=== PATIENT | male | born 1945 | race Caucasian/White ===

== ENCOUNTER 2023-11-08 10:24 | Outpatient (OUT) | payer MEDICARE, SELFPAY ==
[2023-11-08 10:51] LABS: Basophils Absolute Auto 0.1 10^3/uL (0.0-0.1); Basophils Percent Auto 0.7 % (0.2-2.0); Eosinophils Absolute Auto 0.5 10^3/uL (0.0-0.7); Eosinophils Percent Auto 6.1 % (0.9-7.0); Hemoglobin 15.1 g/dL (14.0-18.0); Immature Granulocytes Abs Auto 0.03 10^3/uL (0.00-0.03); Immature Granulocytes Pct Auto 0.4 % (0.0-0.5); Lymphocytes Percent Auto 27.3 % (20.5-60.0); Mean Corpuscular HGB Conc 32.1 g/dL (29.9-35.2); Mean Corpuscular Hemoglobin 29.5 pg (25.9-34.0); Mean Corpuscular Volume 91.8 fL (80.0-94.0); Mean Platelet Volume 9.7 fL (9.5-13.5); Monocytes Absolute Auto 0.8 10^3/uL (0.3-0.8); Monocytes Percent Auto 10.4 % (1.7-12.0); Neutrophils Absolute Auto 4.1 10^3/uL (1.4-6.5); Neutrophils Percent Auto 55.1 % (43.0-75.0); Platelet Count 222 10^3/uL (150-450); Red Blood Count 5.12 10^6/uL (4.70-6.10); Red Cell Distribution Width 12.9 % (11.0-15.0); White Blood Count 7.4 10^3/uL (4.0-11.0)
[2023-11-08 11:13] LABS: Estimated Average Glucose 126 mg/dL
[2023-11-08 12:11] LABS: Prostate Specific Antigen Scrn 3.09 ng/mL (<=4.00)
[2023-11-08 12:26] LABS: Alanine Aminotransferase 19 U/L (16-63); Albumin Globulin Ratio 0.9; Albumin Level 3.3 g/dL (3.4-5.0); Alkaline Phosphatase 87 U/L (46-116); Anion Gap 13.1; Aspartate Amino Transferase 15 U/L (15-37); BUN Creatinine Ratio 11.4; Bilirubin Total 0.7 mg/dL (0.2-1.0); Calcium 8.7 mg/dL (8.5-10.1); Carbon Dioxide 27.1 mmol/L (21.0-32.0); Chloride 105 mmol/L (98-107); Cholesterol 176 mg/dL (<=200); Estimated GFR (African America 46 (>=60); Estimated GFR (Non-African Ame 38 (>=60); Free T3 1.99 pg/mL (2.18-3.98); Globulin 3.6 g/dL; Glucose 106 mg/dL (74-106); HDL Cholesterol 44 mg/dL (40-60); LDL Cholesterol Calculated 111.6 mg/dL; Potassium 4.2 mmol/L (3.5-5.1); Sodium 141 mmol/L (136-145); Thyroid Stimulating Hormone 3.392 uIU/mL (0.358-3.740); Total Protein 6.9 g/dL (6.4-8.2); Triglycerides 102 mg/dL (<=150); Uric Acid 7.5 mg/dL (3.5-7.2); VLDL CHOLESTEROL 20.4 mg/dL
== END 2023-11-08 10:25 | disposition home or self-care (01) ==
PROVIDERS: PCP Family Medicine; Visit Provider Family Medicine
DX: I95.1 Orthostatic hypotension (principal); R00.2 Palpitations; D63.1 Anemia in chronic kidney disease; I12.9 Hypertensive chronic kidney disease with stage 1 through stage 4 chronic kidney disease, or unspecified chronic kidney disease; E11.9 Type 2 diabetes mellitus without complications; E78.5 Hyperlipidemia, unspecified; Z12.5 Encounter for screening for malignant neoplasm of prostate; E55.9 Vitamin D deficiency, unspecified
CPT/HCPCS: 36415; 80053; 80061; 82306; 83036; 84436; 84443; 84481; 84550; 85025; G0103

== ENCOUNTER 2024-07-11 09:54 | Outpatient (RCR) | payer MEDICARE, SELFPAY | END 2024-07-20 23:59 | disposition home or self-care (01) | LOC: MM 09:54 | PROVIDERS: PCP Family Medicine; Visit Provider Internal Medicine | DX: Z51.81 Encounter for therapeutic drug level monitoring (principal); Z79.01 Long term (current) use of anticoagulants; I48.20 Chronic atrial fibrillation, unspecified | CPT/HCPCS: 85610; G0463 ==

== ENCOUNTER 2024-07-22 04:02 | Outpatient (RCR) | payer MEDICARE, SELFPAY | END 2024-08-20 09:32 | disposition home or self-care (01) | LOC: MM 04:02 | PROVIDERS: PCP Family Medicine; Visit Provider Internal Medicine | DX: Z51.81 Encounter for therapeutic drug level monitoring (principal); Z79.01 Long term (current) use of anticoagulants; I48.20 Chronic atrial fibrillation, unspecified; Z86.73 Personal history of transient ischemic attack (TIA), and cerebral infarction without residual deficits | CPT/HCPCS: 85610; G0463 ==

== ENCOUNTER 2024-08-22 00:44 | Outpatient (RCR) | payer MEDICARE, SELFPAY | END 2024-09-20 14:51 | disposition home or self-care (01) | LOC: MM 00:44 | PROVIDERS: PCP Family Medicine; Visit Provider Internal Medicine | DX: Z51.81 Encounter for therapeutic drug level monitoring (principal); Z79.01 Long term (current) use of anticoagulants; I48.20 Chronic atrial fibrillation, unspecified | CPT/HCPCS: 85610; G0463 ==

== ENCOUNTER 2024-09-23 00:45 | Outpatient (RCR) | payer MEDICARE, SELFPAY | END 2024-10-18 11:08 | disposition home or self-care (01) | LOC: MM 00:45 | PROVIDERS: PCP Family Medicine; Visit Provider Internal Medicine | DX: Z51.81 Encounter for therapeutic drug level monitoring (principal); Z79.01 Long term (current) use of anticoagulants; I48.20 Chronic atrial fibrillation, unspecified | CPT/HCPCS: 85610; G0463 ==

== ENCOUNTER 2024-10-19 09:43 | Outpatient (RCR) | payer MEDICARE, SELFPAY | END 2024-11-15 10:18 | disposition home or self-care (01) | LOC: MM 09:43 | PROVIDERS: PCP Family Medicine; Visit Provider Internal Medicine | DX: Z51.81 Encounter for therapeutic drug level monitoring (principal); Z79.01 Long term (current) use of anticoagulants; I48.20 Chronic atrial fibrillation, unspecified | CPT/HCPCS: 85610; G0463 ==

== ENCOUNTER 2024-11-19 01:58 | Outpatient (RCR) | payer MEDICARE, SELFPAY | END 2024-12-18 13:55 | disposition home or self-care (01) | LOC: MM 01:58 | PROVIDERS: PCP Family Medicine; Visit Provider Internal Medicine | DX: Z51.81 Encounter for therapeutic drug level monitoring (principal); Z79.01 Long term (current) use of anticoagulants; I48.20 Chronic atrial fibrillation, unspecified | CPT/HCPCS: 85610; G0463 ==

== ENCOUNTER 2024-12-19 04:51 | Outpatient (RCR) | payer MEDICARE, SELFPAY | END 2025-01-18 07:11 | disposition home or self-care (01) | LOC: MM 04:51 | PROVIDERS: PCP Family Medicine; Visit Provider Internal Medicine | DX: Z51.81 Encounter for therapeutic drug level monitoring (principal); Z79.01 Long term (current) use of anticoagulants; I48.20 Chronic atrial fibrillation, unspecified | CPT/HCPCS: 85610; G0463 ==

== ENCOUNTER 2024-12-19 14:03 | Outpatient (OUT) | payer MEDICARE, SELFPAY ==
--- NOTE | 2024-12-19 14:20 | P.WCHP_ITS ---
Wound Care H&P: HPI History of Present Illness Narrative: Mr. De La Rosa is a pleasant 79-year-old gentleman who is deaf who presents for routine nail care. We were unable to access the video american sign language interpreter, therefore communication was in written form. The patient was agreeable with this form of communication. His last hemoglobin A1c was 6.0. He does complain of a cold sensation and paresthesias in his feet, especially on the right. He does admit to some cramping in his right leg with activity. He has no complaints in his feet or legs at this time. Exam Narrative: Exam Narrative: Derm: Skin is diffusely dry and shiny. Toenails 1 through 10 are elongated, thickened, and mycotic. No evidence of paronychia. No ulcerative or preulcerative lesions noted. Vascular: DP pulses are 2/4 bilaterally. PT pulses are faintly palpable bilaterally. Capillary refills less than 3 seconds bilaterally. Varicosities are present in both ankles. Skin is warm to the touch. There is trace edema of the feet and ankles. Hair on the toes and feet is decreased. Musculoskeletal: No gross deformity. No pain with palpation. Neuro: Monofilament testing was present and 0/5 areas tested on the right and 3/5 areas tested on the left. Vibratory sensation is present bilaterally. Reflexes are 1+ bilaterally. 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 Follow-up in 3 months or as needed. Acute Procedures Podiatry Nail Debridement Class B Findings Advanced trophic changes as evidenced by any three of the following: decreased hair growth, nail changes (thickening), pigmentary changes (discoloring) and skin texture (thin or shiny) Class C Findings Claudication: Yes Temperature changes: No Edema: Yes Nail debridement paresthesia (abnormal spontaneous sensations in the feet): Yes Burning: Yes Qualifies If: Qualifiers If:: A patient qualifies for nail debridement if they have: 1 class A finding (Q7) 2 class B findings (Q8) OR 1 class B & 2 class C findings in addition to a primary condition (Q9) Nail Procedure Nail Procedure Time out: Yes Nail procedure: other (Nail debridement) Number of affected nails: 10 Location (toes): left, right, first digit, second digit, third digit, fourth digit and fifth digit Procedure successful: Yes Patient tolerated procedure: well and no complications Additional comments: Toenails 1 through 10 were sharply debrided without incident and to the patient satisfaction.
== END 2024-12-19 14:04 | disposition home or self-care (01) ==
LOC: WC 14:03
PROVIDERS: PCP Family Medicine; Visit Provider Physician Assistant
DX: E11.40 Type 2 diabetes mellitus with diabetic neuropathy, unspecified (principal); L60.8 Other nail disorders; B35.1 Tinea unguium
CPT/HCPCS: 11721

== ENCOUNTER 2025-01-03 11:50 | Outpatient (OUT) | payer MEDICARE, SELFPAY ==
[2025-01-03 12:11] LABS: Basophils Percent Auto 0.5 % (0.2-2.0); Eosinophils Absolute Auto 0.3 10^3/uL (0.0-0.7); Eosinophils Percent Auto 3.6 % (0.9-7.0); Hematocrit 47.3 % (42.0-54.0); Hemoglobin 16.1 g/dL (14.0-18.0); Immature Granulocytes Abs Auto 0.03 10^3/uL (0.00-0.03); Immature Granulocytes Pct Auto 0.4 % (0.0-0.5); Lymphocytes Absolute Auto 2.2 10^3/uL (1.2-3.8); Mean Corpuscular Hemoglobin 30.3 pg (25.9-34.0); Mean Corpuscular Volume 88.9 fL (80.0-94.0); Mean Platelet Volume 9.4 fL (9.5-13.5); Monocytes Absolute Auto 0.8 10^3/uL (0.3-0.8); Monocytes Percent Auto 9.7 % (1.7-12.0); Neutrophils Percent Auto 59.8 % (43.0-75.0); Platelet Count 206 10^3/uL (150-450); Red Blood Count 5.32 10^6/uL (4.70-6.10); Red Cell Distribution Width 13.1 % (11.0-15.0); White Blood Count 8.4 10^3/uL (4.0-11.0)
[2025-01-03 12:30] LABS: Estimated Average Glucose 134 mg/dL; Glycohemoglobin A1C 6.3 % (4.5-6.2)
[2025-01-03 12:32] LABS: Alanine Aminotransferase 23 U/L (16-63); Albumin Globulin Ratio 0.9; Albumin Level 3.4 g/dL (3.4-5.0); Alkaline Phosphatase 76 U/L (46-116); Anion Gap 11.9; Aspartate Amino Transferase 20 U/L (15-37); BUN Creatinine Ratio 10.9; Calcium 8.9 mg/dL (8.5-10.1); Carbon Dioxide 26.6 mmol/L (21.0-32.0); Chloride 107 mmol/L (98-107); Chol HDL Ratio 3.9; Cholesterol 190 mg/dL (<=200); Estimated GFR (African America 49 (>=60 mL/min/1.73m^2); Estimated GFR (Non-African Ame 40 (>=60 mL/min/1.73m^2); Free T3 2.39 pg/mL (2.18-3.98); Globulin 3.6 g/dL; Glucose 120 mg/dL (74-106); HDL Cholesterol 49 mg/dL (40-60); Potassium 4.5 mmol/L (3.5-5.1); Sodium 141 mmol/L (136-145); Thyroid Stimulating Hormone 1.282 uIU/mL (0.358-3.740); Triglycerides 115 mg/dL (<=150)
[2025-01-03 13:19] LABS: Prostate Specific Antigen Scrn 1.55 ng/mL (<=4.00)
== END 2025-01-03 11:51 | disposition home or self-care (01) ==
LOC: LAB 11:51
PROVIDERS: PCP Family Medicine; Visit Provider Family Medicine
DX: E03.9 Hypothyroidism, unspecified (principal); I95.1 Orthostatic hypotension; R00.2 Palpitations; E78.5 Hyperlipidemia, unspecified; I42.9 Cardiomyopathy, unspecified; R73.09 Other abnormal glucose; I10 Essential (primary) hypertension; Z12.5 Encounter for screening for malignant neoplasm of prostate; R53.83 Other fatigue
CPT/HCPCS: 80053; 80061; 83036; 84436; 84443; 84481; 85025; G0103

== ENCOUNTER 2025-01-19 07:38 | Outpatient (RCR) | payer MEDICARE, SELFPAY | END 2025-02-13 14:39 | disposition home or self-care (01) | LOC: MM 07:38 | PROVIDERS: PCP Family Medicine; Visit Provider Internal Medicine | DX: Z51.81 Encounter for therapeutic drug level monitoring (principal); Z79.01 Long term (current) use of anticoagulants; I48.20 Chronic atrial fibrillation, unspecified ==

== ENCOUNTER 2025-02-18 02:44 | Outpatient (RCR) | payer MEDICARE, SELFPAY | END 2025-03-20 16:36 | disposition home or self-care (01) | LOC: MM 02:44 | PROVIDERS: PCP Family Medicine; Visit Provider Internal Medicine | DX: Z51.81 Encounter for therapeutic drug level monitoring (principal); Z79.01 Long term (current) use of anticoagulants; I48.20 Chronic atrial fibrillation, unspecified | CPT/HCPCS: 85610; G0463 ==

== ENCOUNTER 2025-03-21 02:16 | Outpatient (RCR) | payer MEDICARE, SELFPAY | END 2025-04-17 12:55 | disposition home or self-care (01) | LOC: MM 02:16 | PROVIDERS: PCP Family Medicine; Visit Provider Internal Medicine | DX: Z51.81 Encounter for therapeutic drug level monitoring (principal); Z79.01 Long term (current) use of anticoagulants; I48.20 Chronic atrial fibrillation, unspecified ==

== ENCOUNTER 2025-03-27 13:19 | Outpatient (OUT) | payer MEDICARE, SELFPAY ==
--- NOTE | 2025-03-27 13:46 | PM.WCHP ---
Wound Care H&P: HPI History of Present Illness Narrative: Mr. De La Rosa is a pleasant 79-year-old gentleman who is deaf who presents for routine nail care. Video home health care social worker was used for communication. He does complain of a cold sensation and paresthesias in his feet, especially on the right. He does admit to some cramping in his right leg with activity. Exam Narrative: Exam Narrative: Derm: Skin is diffusely dry and shiny. Toenails 1 through 10 are elongated, thickened, and mycotic. No evidence of paronychia. No ulcerative or preulcerative lesions noted. Vascular: DP pulses are 2/4 bilaterally. PT pulses are faintly palpable bilaterally. Capillary refills less than 3 seconds bilaterally. Varicosities are present in both ankles. Skin is warm to the touch. There is trace edema of the feet and ankles. Hair on the toes and feet is decreased. Musculoskeletal: No gross deformity. No pain with palpation. Neuro: Monofilament testing was present and 0/5 areas tested on the right and 3/5 areas tested on the left. Vibratory sensation is present bilaterally. Reflexes are 1+ bilaterally. 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 Follow-up in 3 months or as needed. Acute Procedures Podiatry Nail Debridement Class B Findings Advanced trophic changes as evidenced by any three of the following: decreased hair growth, nail changes (thickening), pigmentary changes (discoloring) and skin texture (thin or shiny) Class C Findings Claudication: Yes Temperature changes: No Edema: Yes Nail debridement paresthesia (abnormal spontaneous sensations in the feet): Yes Burning: Yes Qualifies If: Qualifiers If:: A patient qualifies for nail debridement if they have: 1 class A finding (Q7) 2 class B findings (Q8) OR 1 class B & 2 class C findings in addition to a primary condition (Q9) Nail Procedure Nail Procedure Time out: Yes Nail procedure: other (Nail debridement) Number of affected nails: 10 Location (toes): left, right, first digit, second digit, third digit, fourth digit and fifth digit Procedure successful: Yes Patient tolerated procedure: well and no complications Additional comments: Toenails 1 through 10 were sharply debrided without incident and to the patient satisfaction.
== END 2025-03-27 13:20 | disposition home or self-care (01) ==
LOC: WC 13:19
PROVIDERS: PCP Family Medicine; Visit Provider Physician Assistant
DX: B35.1 Tinea unguium (principal); L60.8 Other nail disorders; E11.8 Type 2 diabetes mellitus with unspecified complications; E11.40 Type 2 diabetes mellitus with diabetic neuropathy, unspecified
CPT/HCPCS: 11721

== ENCOUNTER 2025-04-21 01:14 | Outpatient (RCR) | payer MEDICARE, SELFPAY | END 2025-05-20 15:18 | disposition home or self-care (01) | LOC: MM 01:14 | PROVIDERS: PCP Family Medicine; Visit Provider Internal Medicine | DX: Z51.81 Encounter for therapeutic drug level monitoring (principal); Z79.01 Long term (current) use of anticoagulants; I48.20 Chronic atrial fibrillation, unspecified; I63.9 Cerebral infarction, unspecified | CPT/HCPCS: 85610; G0463 ==

== ENCOUNTER 2025-05-21 04:26 | Outpatient (RCR) | payer MEDICARE, SELFPAY | END 2025-06-20 23:59 | disposition home or self-care (01) | LOC: MM 04:26 | PROVIDERS: PCP Family Medicine; Visit Provider Internal Medicine | DX: I48.20 Chronic atrial fibrillation, unspecified (principal) | CPT/HCPCS: 85610; G0463 ==

== ENCOUNTER 2025-06-21 | Outpatient (RCR) | payer MEDICARE, SELFPAY | END 2025-07-20 23:59 | disposition home or self-care (01) | LOC: MM | PROVIDERS: PCP Family Medicine; Visit Provider Family Medicine | DX: Z51.81 Encounter for therapeutic drug level monitoring (principal); Z79.01 Long term (current) use of anticoagulants; I48.20 Chronic atrial fibrillation, unspecified | CPT/HCPCS: 85610; G0463 ==

== ENCOUNTER 2025-07-01 11:25 | Outpatient (OUT) | payer MEDICARE, SELFPAY ==
--- OUTSIDE RECORDS SUMMARY | 2024-12-16 08:00 | XMS_ITS ---
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 Role Phone Noel Beard Primary Care Provider [phone] Asha Macias Unavailable [phone] REASON FOR VISIT Nail Care Encounters Encounter Location Date Provider Diagnosis [facility] (PODIATRY) [address] [place] [address] [place] [address] 12/16/2024 Asha Macias Plan Of Treatment Next Appt Details Provider Name:Noel Beard, 10:00:00 AM, [address] [facility] [place], [address], Progress Notes * Yunior ALANIZ ADOB:[birth year] (79 yo M)Acc No.[id number]:12/16/2024 UNLOCKED PROGRESS NOTE Nurse Visit Patient: Yunior CARPIO :?ROSALBA BondCDOB:1945???Age:79 Y ???Sex:MaleDate:12/16/2024Phone:[phone]:[address] [place], [place]Rnw:Noel Beard Subjective: * Chief Complaints: * 1 . Nail Care. * Medical History: Objective: * Vitals: Assessment: Plan: * Treatment: * * Electronic signature of Asha Macias PA-C on 07/01/2025 at 11:27 AM ESTSign off status: PendingVisit Status:?OFF CANC (OFFICE CANCEL) * Provider: Radha Macias PA-C Date: 0 12/16/2024 Generated for Printing/Faxing/eTransmitting on:?07/01/2025 11:27 AM EST
--- OUTSIDE RECORDS SUMMARY | 2025-07-01 11:28 | XMS_ITS | Clinical Summary ---
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 MONDAY, MONDAY, MONDAYActive finasteride (Proscar) 5 mg tablet Take 1 tablet (5 mg) by mouth once daily.Active levothyroxine (Synthroid, Levoxyl) 75 mcg tablet Take 1 tablet (75 mcg) by mouth once daily.Active pantoprazole (ProtoNix) 40 mg EC tablet Take 1 tablet (40 mg) by mouth once daily.Active tamsulosin (Flomax) 0.4 mg 24 hr capsule Take 1 capsule (0.4 mg) by mouth once daily.Active multivitamin tablet Take 1 tablet by mouth once daily.Active citalopram (CeleXA) 10 mg tablet Take 1 tablet (10 mg) by mouth once daily.07/13/2024ctive warfarin (Coumadin) 7.5 mg tablet Take 1 tablet (7.5 mg) by mouth early in the morning..07/07/2024ctive simvastatin (Zocor) 20 mg tablet Indications:Mixed hyperlipidemiaTake 1 tablet (20 mg) by mouth once daily. 90 tablet ctive Active Problems ProblemNoted DateDiagnosed DateBody mass index (BMI) of 31.0 to 31.9 in adult 05/19/2025Other nmghwjo3205/19/2025Use of cane as ambulatory aid05/19/2025VA (cerebral vascular accident)07/15/2024resence of Watchman left atrial appendage closure vpphmd6703/04/2024trial kexkfuqwxohk65/21/2024eaf mutism, congenital 12/08/2023Never smoked ltsqdxp9712/04/2023MI 30.0-30.9,adult12/04/2023Encounter to discuss test nlgrget8205/25/2023hest pain05/24/2023Mild CAD05/24/2023 Assessment & Plan (09/28/2023 4:24 PM EST): December 2017 cardiac cath Mid LAD 30% Proximal circumflex 30% RCA nondominant July 2022 MPI no ischemia Mixed garjphngfaiqwq46/04/2023Non-ischemic laqzfmmphvaphw71/04/2023 Assessment & Plan (09/28/2023 4:25 PM EST): 2017 LVEF 25% February 2019 TTE EF 45 to 50% July 2022 MPI EF 47% November 2022 TTE EF 50 to 55% Sympathotonic orthostatic bjilzzkwipb69/04/2023 Assessment & Plan (09/28/2023 4:26 PM EST): Standing blood pressure in the office 102/50 No longer on ProAmatine Wcstumnpafowza45/04/2023 Assessment & Plan (09/28/2023 4:26 PM EST): CHADS VASc 3 currently on full dose Eliquis age 78, creatinine 1.6, weight 195 Denies bleeding diatheses Has been referred for left atrial appendage occlusive device due to frequent falls, unsteady gait. BPH (benign prostatic hyperplasia)05/24/2023HF (congestive heart failure), NYHA class II05/24/20231083Lvhuwdnz19/04/6760Tnboegkrl68/04/2023First degree AV block 05/24/2023ait ajsyyhuisen78/04/2023Risk for falls05/24/2023Shortness of breath 05/24/2023Stage 3a chronic kidney hkixyhb9405/24/20236466Bossum44/04/2023 Resolved Problems ProblemNoted DateDiagnosed DateResolved DateAtrial fibrillation, unspecified typeFalls kygintoimv66//946634/Persistent atrial psjegwjzqidw34/04/202307/ Assessment & Plan (09/28/2023 4:25 PM EST): November 2020 cardioversion Had previously been maintained on amiodarone until early 2022 when it was discontinued due to concern for side effects of gait abnormality. EKG in office today recurrent atrial fibrillation with controlled ventricular rate, PVCs currently on no AV kurt blocking agents Abnormal EKG1/4Class 1 obesity with body mass index (BMI) of 30.0 to 30.9 in adult Assessment & Plan (09/28/2023 4:26 PM EST): Reviewed the merits of healthy lifestyle choices on overall cardiovascular health. Encounters DateTypeDepartmentCare ZwvoVhvzhrkfdem57/29/2025 3:30 PM EDTOffice Visit [facility] [address] [id number] Viki Cooney MD Non-ischemic cardiomyopathy (Multi); Presence of Watchman left atrial appendage closure device; Anticoagulated; Chronic systolic congestive heart failure, NYHA class 2 (Multi); Mixed hyperlipidemia; Dizziness; Use of cane as ambulatory aid; Deaf mutism, congenital; Never smoked tobacco; Body mass index (BMI) of 31.0 to 31.9 in adult; Benign prostatic hyperplasia, unspecified whether lower urinary tract symptoms ocdyldf8305/19/2025Travelfrom Last 3 Months Immunizations ImmunizationAdministration DatesNext DueFlu vaccine, trivalent, preservative free, HIGH-DOSE, age 65y+ (Fluzone)06/29/2017,06/10/2016Influenza, Unspecified 06/21/2019,05/21/2018Influenza, seasonal, cftnixrlwi00/01/2024,05/21/2020 Influenza, trivalent, nujhaphvhr94/05/2020Pfizer Domingo Cap USDJ-HfM-171/05/2022 Pneumococcal conjugate vaccine, 13-valent (PREVNAR 13)06/29/2017,04/11/2017 Pneumococcal conjugate vaccine, 20-valent (PREVNAR 20)04/02/2022neumococcal polysaccharide vaccine, 23-valent, age 2 years and older (PNEUMOVAX 23) 06/10/2016 Family History Medical HistoryRelationNameCommentsHeart diseaseFatherCARDIAC PACEMAKERNo Known ProblemsMotherRelationNameStatusCommentsFatherMother Social History Tobacco UseTypesPacks/DayYears UsedDateSmoking Tobacco: NeverSmokeless Tobacco: Never Tobacco Cessation:Counseling Given: Not Answered Alcohol UseStandard Drinks/WeekCommentsNever0 (1 standard drink = 0.6 oz pure alcohol)PHQ-2AnswerDate RecordedPatient Health Questionnaire-2 Qsmmp486 Sex and Gender InformationValueDate RecordedSex Assigned at BirthNot on file Legal OybSezx36/26/2022 12:47 AM ESTGender IdentityNot on fileSexual Orientation Not on file Last Filed Vital Signs Vital SignReadingTime TakenCommentsBlood Luhnnjkc20/56005/19/2025 4:37 PM EDT Twvkp020605/19/2025 4:07 PM VDHAgomkrjtxqw68.4 ??C (97.5 ??F)02/09/2024 8:38 PM EDTRespiratory Qeax858502/09/2024 8:38 PM EDTOxygen Zwhjnhutwc41%02/09/2024 8:38 PM EDTInhaled Oxygen Concentration--Xvoamb75.8 kg (198 lb)05/19/2025 4:07 PM EDT Zzxxeo916.2 cm (5' 7 )05/19/2025 4:07 PM EDTBody Mass Index31.01005/19/2025 4:07 PM EDT Plan of Treatment DateTypeDepartmentCare Team (Latest Contact Info)Nbitxakogxx43/17/2026 1:00 PM EDTOffice Visit [facility] [address] [facility] [address] [place] [address] Viki Cooney MD [address] [facility] [address] [place] [address] Health MaintenanceDue DateLast DoneCommentsCreatinine Level1945 Iebinjgefyyweu39/25/1946Lipid Panel1945Medicare Annual Wellness Visit (AWV)1945Potassium Level1945TSH Level1945Diabetes Screening 1963Hepatitis C Kqnhwoizr61/25/1964CKD: Urine Protein Mcmuaonqi79/25/1965 DTaP/Tdap/Td Vaccines (1 - Tdap)1967Zoster Vaccines (1 of 2)1995RSV High Risk: (Elderly (60+) or Population) (1 - 1-dose 75+ series) 2020Influenza Vaccine (#1)511/01/2024, 05/21/2024, 06/09/2023, Additional history existsCOVID-19 Vaccine (2 - 2024- season)2025 12/23/2021neumococcal XuxcjaqPkrsgxipb72/13/2022, 06/29/2017, 04/11/2017, Additional history existsHIB VaccinesAged OutNo longer eligible based on patient's age to complete this topicHPV VaccinesAged OutNo longer eligible based on patient's age to complete this topicHepatitis A VaccinesAged OutNo longer eligible based on patient's age to complete this topicHepatitis B VaccinesAged OutNo longer eligible based on patient's age to complete this topicIPV Vaccines Aged OutNo longer eligible based on patient's age to complete this topic Meningococcal VaccineAged OutNo longer eligible based on patient's age to complete this topicRotavirus VaccinesAged OutNo longer eligible based on patient's age to complete this topic Medical Devices ImplantedTypeAreaManufacturerDevice IdentifierShelf Expiration DateModel / Serial / [id number] Watchman Flx Left Atrial Appendage Closure Device With Delivery System Implanted:Qty: 1 on 02/09/2024 [facility]: [id number] / / [id number] Insurance * Guarantor: Yunior De La RosaAccount TypeRelation to PatientDate of BirthPhone Billing AddressPersonal/DleauxMqog18/25/1946 [address] [place] [id number] MemberSubscriberPlan / Payer (Effective 2011-Present)Name:Rj, Yunior Member ID:[id number] Relation to Subscriber:SelfName:Rj, Yunior Subscriber ID:[id number] Payer ID:Not on file Group ID:Not on file Type:Not on file Address: [place] [phone] Advance Directives For more information, please contact: [phone] (Available ) * Full Code (Latest Code Status on File) Date ActivatedDate InactivatedComments02/09/2024 7:06 PMQuestionAnswerComments Plan of Care:* Code Status Discussion Completed Decision Maker:* Patient * Full Code Date ActivatedDate InactivatedComments02/09/2024 4:40 PM02/09/2024 7:06 PMQuestion AnswerCommentsPlan of Care:* Code Status Discussion Completed Decision Maker:* Patient Care Teams Team MemberRelationshipSpecialtyStart DateEnd Date Lupillo Beard MD [address] [place] [phone] PCP - General08/21/99
--- OUTSIDE RECORDS SUMMARY | 2025-07-01 11:28 | XMS_ITS | Encounter Summary ---
Author Organization [facility] Address [address] [place] [address] Care Team Providers Care Polishing Wheel Setter Name Role Phone Lupillo Beard MD Primary Care Provider [phone] Juan Mendoza MD Unavailable [phone] Encounter Details DateTypeDepartmentCare Team (Latest Contact Info)Rlvejzhzwaj68/31/2024Clinisync Result Encounter [facility] External Department Unsolicited Calvin Mcdaniel DO Social History Tobacco UseTypesPacks/DayYears UsedDateSmoking Tobacco: Never AssessedSex and Gender InformationValueDate RecordedSex Assigned at BirthNot on fileLegal Sex Male11/02/2022 9:44 PM EDTGender IdentityNot on fileSexual OrientationNot on filedocumented as of this encounter Plan of Treatment Not on file documented as of this encounter Procedures Procedure NamePriorityDate/TimeAssociated DiagnosisCommentsECHO TRANSTHORACIC XQOWSCCO34/31/2024 1:13 PM EDT documented in this encounter Results * ECHO TRANSTHORACIC COMPLETE (06/20/2024 1:13 PM EDT)Anatomical Region LateralityModalityOtherSpecimen (Source)Anatomical Location / Laterality Collection Method / VolumeCollection TimeReceived Time06/20/2024 1:13 PM EDT Narrative 06/20/2024 2:07 PM EDT Echocardiology Procedure ? Exam Date/Time ? Accession # ? Ordering DrMichele Echo Transthoracic ?06/20/2024 13:13 EDT ? [id number] ?Calvin Mcdaniel DO Complete CPT code 55807 96930 Reason for Exam (Echo Transthoracic Complete) CVA Report ?[facility] ? [address] ? [place] [address] ? Adult Echocardiogram Report Name: AYAD ALANIZ ? Study Date: 06/20/2024 12:17 PM ? BP: 137/82 mmHg ?Patient Location: 2N N203 01 [facility] Bed(s) [facility] ? HR: 74 : 1945 ?Gender: Male ? Height: 66.5 in Age: 78 yrs ?Ethnicity: WHT ? Weight: 207 lb Reason For Study: CVA ? BSA: 2.0 m2 History: Watchman device, Hypercholesterolemia, obesity, CAD, DM, PAF, CHF, MO, Cardiomyopathy Ordering Physician: Calvin Mcdaniel Performed By: Fauzia Irving RDCS Interpretation Summary Left ventricular ejection fraction is moderate to severely reduced. Ejection Fraction = 35-40%. There is moderate to severe global hypokinesis of the left ventricle. The left atrium is severely dilated. Watchman device is seen. The right atrium is mild to moderately dilated. There is mild mitral regurgitation. There is mild pulmonary hypertension. Estimated RVSP is 40-45 mmHg. Procedure A complete two-dimensional transthoracic echocardiogram was performed (2D, M- mode, spectral and color flow Doppler). Left Ventricle The left ventricle is normal in size. There is normal left ventricular wall thickness. Left ventricular ejection Echocardiology Report fraction is moderate to severely reduced. Ejection Fraction = 35-40%. There is moderate to severe global hypokinesis of the left ventricle. Cannot assess diastolic function/afib. Left Atrium The left atrium is severely dilated. Watchman device is seen. There is no atrial septal defect. Right Atrium The right atrium is mild to moderately dilated. Right Ventricle The right ventricular systolic function is normal. The right ventricle is normal size. Aortic Valve The trileaflet aortic valve opening is normal. No aortic regurgitation. There is no aortic stenosis. Mitral Valve The mitral valve is grossly normal. There is mild mitral regurgitation. No mitral valve stenosis. Tricuspid Valve Anatomically normal tricuspid valve. There is trace tricuspid regurgitation. Estimated RVSP is 40-45 mmHg. There is mild pulmonary hypertension. No evidence of tricuspid stenosis. Pulmonic Valve The pulmonic valve is normal. Trace pulmonic valvular regurgitation. No evidence of stenosis. Arteries The aortic root is normal in size. Normal ascending aorta. Effusion There is no pericardial effusion. MMode/2D Measurements \T\ Calculations RVDd: 2.7 cm ?LVIDd: 4.9 cm ? FS: 13.8 % ?Ao root diam: 3.3 cm IVSd: 0.90 cm ? LVIDs: 4.2 cm ? EDV(Teich): 113.1 ml?Ao root area: 8.6 cm2 ?LVPWd: 0.93 cm ?ESV(Teich): 79.9 ml ? LA dimension: 4.2 cm ?EF(Teich): 29.4 % ? asc Aorta Diam: 3.3 cm ?LVLd ap4: 8.5 cm ?EDV(MOD-sp2): 131.0 ml ? SV(MOD-sp4): 54.2 ml ?EDV(MOD-sp4): 131.0 ml ?ESV(MOD-sp2): 76.4ml ?LVLs ap4: 7.9 cm ?EF(MOD-sp2): 41.7 % ?ESV(MOD-sp4): 76.8 ml ?EF(MOD-sp4): 41.4 % ? TAPSE: 2.1 cm ? IVC Diam: 2.1 cm ?RVIDd/LVIDd: 0.55 ? EF (MOD-bp): 41.5 % ? LA Vol Index: 47.3 ml/m2 Doppler Measurements \T\ Calculations MV E max merlin: 106.0 cm/sec ?MV dec time: 0.15 sec ?Ao V2 max: 153.0 cm/sec ? LV V1 max P.2 mmHg Lat Peak E' Merlin: 6.7 cm/sec ?Ao max P.4 mmHg ? LV V1 mean P.0 mmHg Echocardiology Report E/E' Lat: 15.8 ? Ao V2 mean: 102.0 cm/sec ?LV V1 max: 54.8 cm/sec Med Peak E' Merlin: 4.9 cm/sec ?Ao mean P.0 mmHg ?LV V1 mean: 35.6 cm/sec E/E' Med: 21.4 ? Ao V2 VTI: 32.1cm ?LV V1 VTI: 11.3 cm ? TR max merlin: 319.0 cm/sec ?RAP systole: 3.0 mmHg ?AV VR: 0.36 TR max P.7 mmHg RVSP(TR): 43.7 mmHg Electronically signed by:Floyd Galdamez MD ?? on ?? 06/20/2024 02:06 PM FINAL REPORT Dictated: ??06/20/2024 12:17 pm ?Floyd Galdamez MD Signed (Electronic Signature): ??06/20/2024 2:06 pm Signed by: ??Floyd Galdamez MD Transcribed by: ??LISE ?Technologist: ??KDL Procedure Note Radiology, Radiologist, - 06/20/2024 Echocardiology Procedure Exam Date/Time Accession #Ordering Echo Transthoracic 06/20/2024 13:13 EDT [id number] Mcdaniel DO Complete CPT code 08121 [id number] Reason for Exam (Echo Transthoracic Complete) CVA Report [facility] [address] [facility] [place], [id number] Adult EchocardiogramReport Name: AYAD ALANIZ Study Date: 06/20/2024 12:17 PM BP: 137/82 mmHg [facility] HR: 74 : 1945 Gender: Male Height: 66.5 in Age: 78 yrs Ethnicity: WHT Weight: 207 lb Reason For Study: CVA BSA: 2.0 m2 History: Watchman device, Hypercholesterolemia, obesity, CAD, DM, PAF,CHF, MO, Cardiomyopathy Ordering Physician: Calvin Mcdaniel Performed By: Fauzia Irving RDCS Interpretation Summary Left ventricular ejection fraction is moderate to severely reduced. Ejection Fraction = 35-40%. There is moderate to severe global hypokinesis of the left ventricle. The left atrium is severely dilated. Watchman device is seen. The right atrium is mild to moderately dilated. There is mild mitral regurgitation. There is mild pulmonary hypertension. Estimated RVSP is 40-45 mmHg. Procedure A complete two-dimensional transthoracic echocardiogram was performed (2D,M- mode, spectral and color flow Doppler). Left Ventricle The left ventricle is normal in size. There is normal left ventricularwall thickness. Left ventricular ejection Echocardiology Report fraction is moderate to severely reduced. Ejection Fraction = 35-40%.There is moderate to severe global hypokinesis of the left ventricle. Cannot assess diastolic function/afib. Left Atrium The left atrium is severely dilated. Watchman device is seen. There is noatrial septal defect. Right Atrium The right atrium is mild to moderately dilated. Right Ventricle The right ventricular systolic function is normal. The right ventricle isnormal size. Aortic Valve The trileaflet aortic valve opening is normal. No aortic regurgitation.There is no aortic stenosis. Mitral Valve The mitral valve is grossly normal. There is mild mitral regurgitation. Nomitral valve stenosis. Tricuspid Valve Anatomically normal tricuspid valve. There is trace tricuspidregurgitation. Estimated RVSP is 40-45 mmHg. There is mild pulmonary hypertension. No evidence of tricuspid stenosis. Pulmonic Valve The pulmonic valve is normal. Trace pulmonic valvular regurgitation. Noevidence of stenosis. Arteries The aortic root is normal in size. Normal ascending aorta. Effusion There is no pericardial effusion. MMode/2D Measurements \T\ Calculations RVDd: 2.7 cm LVIDd: 4.9 cm FS: 13.8 %Ao root diam: 3.3 cm IVSd: 0.90 cm LVIDs: 4.2 cm EDV(Teich):113.1 ml Ao root area: 8.6 cm2 LVPWd: 0.93 cm ESV(Teich):79.9 ml LA dimension: 4.2 cm EF(Teich):29.4 % asc Aorta Diam: 3.3 cm LVLd ap4: 8.5 cmEDV(MOD-sp2): 131.0 ml SV(MOD-sp4): 54.2 ml EDV(MOD-sp4): 131.0 mlESV(MOD-sp2): 76.4 ml LVLs ap4: 7.9 cm EF(MOD-sp2):41.7 % ESV(MOD-sp4): 76.8 ml EF(MOD-sp4): 41.4 % TAPSE: 2.1 cm IVC Diam: 2.1 cm RVIDd/LVIDd:0.55 EF (MOD-bp): 41.5 % LA Vol Index: 47.3 ml/m2 Doppler Measurements \T\ Calculations MV E max merlin: 106.0 cm/sec MV dec time: 0.15 sec Ao V2 max:153.0 cm/sec LV V1 max P.2 mmHg Lat Peak E' Merlin: 6.7 cm/sec Ao max P.4 mmHg LV V1 mean P.0 mmHg Echocardiology Report E/E' Lat: 15.8 Ao V2 mean:102.0 cm/sec LV V1 max: 54.8 cm/sec Med Peak E' Merlin: 4.9 cm/sec Ao mean P.0 mmHg LV V1 mean: 35.6 cm/sec E/E' Med: 21.4 Ao V2 VTI:32.1 cm LV V1 VTI: 11.3 cm TR max merlin: 319.0 cm/sec RAP systole: 3.0 mmHg AV VR: 0.36 TR max P.7 mmHg RVSP(TR): 43.7 mmHg FINAL REPORT Dictated: 06/20/2024 12:17 pm Floyd Galdamez MD Signed (Electronic Signature): 06/20/2024 2:06 pm Signed by: Floyd Galdamez MD Transcribed by: LISE Technologist: JAMIL Authorizing ProviderResult TypeResult StatusAdam Jonas DOCLINISYNC IMAGINGFinal Result documented in this encounter Visit Diagnoses Not on filedocumented in this encounter Care Teams Team MemberRelationshipSpecialtyStart DateEnd Lupillo Beard MD PCP - GeneralFamily Xrntxrll54/6/24 Juan Mendoza MD Referring DgomjmbafKxvioubvr58/9/24documented as of this encounter
--- OUTSIDE RECORDS SUMMARY | 2025-07-01 11:29 | XMS_ITS | Encounter Summary ---
Author Organization [facility] Address [address] [place] [address] Care Team Providers Care [place]en [place] Utility Worker Name Role Phone Lupillo Beard MD Primary Care Provider [phone] Juan Mendoza MD Unavailable [phone] Encounter Details DateTypeDepartmentCare Team (Latest Contact Info)Acoqgcltybm87/04/2024Clinisync Result Encounter [facility] External Department Unsolicited Juan Mendoza MD [address] [facility] [address] [address] [address] [place], [place] [id number] Social History Tobacco UseTypesPacks/DayYears UsedDateSmoking Tobacco: Never AssessedSex and Gender InformationValueDate RecordedSex Assigned at BirthNot on fileLegal Sex Male11/02/2022 9:44 PM EDTGender IdentityNot on fileSexual OrientationNot on filedocumented as of this encounter Plan of Treatment Not on file documented as of this encounter Procedures Procedure NamePriorityDate/TimeAssociated DiagnosisCommentsCT HEAD OR BRAIN W/O SQYTCZHO29/04/2024 5:50 AM EST documented in this encounter Results * CT HEAD OR BRAIN W/O CONTRAST (06/24/2024 5:50 AM EST)Anatomical Region LateralityModalityOtherSpecimen (Source)Anatomical Location / Laterality Collection Method / VolumeCollection TimeReceived Time06/24/2024 5:50 AM EST Narrative 06/24/2024 7:59 AM EST Exam Date/Time: 06/24/2024 06:01 EST Reason for Exam: Stroke Report IMPRESSION: FINDINGS CONSISTENT WITH 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 CLINICAL HISTORY: Stroke. Left-sided weakness. COMPARISON: CT 06/19/2024, MRI 06/20/2024, and CT 06/20/2024. COMMENT: Unenhanced images were obtained. There are areas of mildly decreased attenuation involving portions of the lateral right frontal lobe and lateral right parietal lobe corresponding to areas of restricted diffusion on the recent CT scan, with the areas more prominent than on the most recent CT scan, and consistent with evolving areas of cortical/subcortical infarction. Corresponding to the area of susceptibility effect involving cortex in a gyral pattern at the right frontoparietal junction on the recent MRI scan, there is now curvilinear mildly increased attenuation consistent with cortical hemorrhage, and this is surrounded by low attenuation edema of adjacent subcortical white matter. The involved cortex appears mildly swollen, but no significant mass effect is seen in association with this. As on previous studies, there are some small subtle ill-defined areas of slightly decreased attenuation involving cerebral white matter bilaterally, that are nonspecific, but with small vessel ischemic changes suspected. There is a small focal area of decreased attenuation in the head of the right caudate nucleus, consistent with old lacunar infarct. The lateral ventricles, sylvian fissures, and cortical sulci bilaterally are mildly dilated. No significant mass effect nor midline shift is noted. No extra-axial hematoma nor mass lesion is evident. No skull fracture is noted. All CT scans at this facility use dose modulation, iterative reconstruction, and/or weight based dosing when appropriate to reduce radiation dose to as low as reasonably achievable. Ordering Provider: Juan Mendoza FINAL REPORT Dictated: ??06/24/2024 7:56 am ? Sudhakar Worrell M.D. Signed (Electronic Signature): ??06/24/2024 7:56 am Signed by: ??Sudhakar Worrell M.D. Transcribed by: ??DP ? Technologist: ??SKS Procedure Note Radiology, Radiologist, - 06/24/2024 Exam Date/Time: 06/24/2024 06:01 EST Reason for Exam: Stroke Report IMPRESSION: FINDINGS CONSISTENT WITH EVOLUTION IN RECENT RIGHTFRONTAL-PARIETAL INFARCTS, WITH EVIDENCE OF HEMORRHAGIC COMPONENT INVOLVING CORTEX IN AGYRAL PATTERN AT THE RIGHT FRONTOPARIETAL JUNCTION, WITH THIS CORRESPONDING TO THE AREAOF SUSCEPTIBILITY EFFECT ON THE RECENT MRI STUDY. CLINICAL HISTORY: Stroke. Left-sided weakness. COMPARISON: CT 06/19/2024, MRI 06/20/2024, and CT 06/20/2024. COMMENT: Unenhanced images were obtained. There are areas of mildly decreased attenuation involving portions of thelateral right frontal lobe and lateral right parietal lobe corresponding to areasof restricted diffusion on the recent CT scan, with the areas more prominentthan on the most recent CT scan, and consistent with evolving areas ofcortical/subcortical infarction. Corresponding to the area of susceptibility effect involvingcortex in a gyral pattern at the right frontoparietal junction on the recent MRI scan,there is now curvilinear mildly increased attenuation consistent with corticalhemorrhage, and this is surrounded by low attenuation edema of adjacent subcortical whitematter. The involved cortex appears mildly swollen, but no significant mass effect isseen in association with this. As on previous studies, there are some small subtle ill-defined areas ofslightly decreased attenuation involving cerebral white matter bilaterally, thatare nonspecific, but with small vessel ischemic changes suspected. There is asmall focal area of decreased attenuation in the head of the right caudate nucleus, consistent with old lacunar infarct. The lateral ventricles, sylvian fissures, and cortical sulci bilaterallyare mildly dilated. No significant mass effect nor midline shift is noted. No extra-axial hematoma nor mass lesion is evident. No skull fracture isnoted. All CT scans at this facility use dose modulation, iterativereconstruction, and/or weight based dosing when appropriate to reduce radiation dose to as low as reasonably achievable. Ordering Provider: Juan Mendoza FINAL REPORT Dictated: 06/24/2024 7:56 am Sudhakar Worrell M.D. Signed (Electronic Signature): 06/24/2024 7:56 am Signed by: Sudhakar Worrell M.D. Transcribed by: TATY Technologist: JAYDEN Authorizing ProviderResult TypeResult StatusStevbro Mendoza MDCLINISYNC IMAGING Final Result documented in this encounter Visit Diagnoses Not on filedocumented in this encounter Care Teams Team MemberRelationshipSpecialtyStart DateEnd Date Lupillo Beard MD [facility] - [facility] Ybnpsiir31/6/24 Juan Mendoza MD Referring PrqrcgfvdCdieiuxmk83/9/24documented as of this encounter
--- OUTSIDE RECORDS SUMMARY | 2025-07-01 11:29 | XMS_ITS | Clinical Summary ---
Author Organization [facility] Address [address] [place] [address] Care Team Providers Care Staff Technologist Name Role Phone Lupillo Beard MD Primary Care Provider [phone] Juan Mendoza MD Unavailable [phone] Allergies No known active allergies Medications MedicationSigDispense QuantityRefillsLast FilledStart DateEnd DateStatus Eliquis 5 MG tablet Take 5 mg by mouth06/18/2024ctive aspirin 81 MG EC tablet Take 1 tablet by mouth Daily06/24/2024ctive citalopram (CeleXA) 10 MG tablet Take 10 mg by mouth DailyActive ferrous sulfate 325 (65 Fe) MG tablet Take 325 mg by mouth in the morning and 325 mg in the evening.06/18/2024ctive finasteride (Proscar) 5 MG tablet Take 5 mg by mouth DailyActive levothyroxine (Synthroid, Levoxyl) 75 MCG tablet Take 75 mcg by mouth DailyActive pantoprazole (ProtoNix) 40 MG EC tablet Take 40 mg by mouth in the morning. Take before meals.06/18/2024ctive simvastatin (Zocor) 20 MG tablet Take 1 tablet by mouth DailyActive tamsulosin (Flomax) 0.4 MG 24 hr capsule Take 0.4 mg by mouth DailyActive warfarin (Coumadin) 7.5 MG tablet Take 7.5 mg by mouth 1 (one) time each day07/25/2024ctive Active Problems No known active problems Social History Tobacco UseTypesPacks/DayYears UsedDateSmoking Tobacco: NeverSmokeless Tobacco: Never Tobacco Cessation:Counseling Given: Not Answered Sex and Gender InformationValueDate RecordedSex Assigned at BirthNot on file Legal WxuYypu7711/02/2022 9:44 PM EDTGender IdentityNot on fileSexual Orientation Not on file Last Filed Vital Signs Vital SignReadingTime TakenCommentsBlood Flghfdhn448/7807/29/2024 10:40 AM EST Pulse--Temperature--Respiratory Rate--Oxygen Saturation--Inhaled Oxygen Concentration--Midnyx75.8 kg (198 lb)07/29/2024 10:40 AM UDHTuwtwc970.2 cm (5' 7 )07/29/2024 10:40 AM ESTBody Mass Index31.01109/29/2023 10:40 AM EST Plan of Treatment Not on file Insurance Care Teams Team MemberRelationshipSpecialtyStart Date Lupillo Beard MD PCP - GeneralFamily Pbbfgntd55/6/24 Juan Mendoza MD Referring ErxunosymSkjfzraqw64/9/24
--- OUTSIDE RECORDS SUMMARY | 2025-07-01 11:29 | XMS_ITS | Patient Health Record ---
Author Organization [facility] [place] Address [address] [place] [address] Care Team Providers Care Weatherization Administrator Name Role Phone Noel Beard Primary Care Provider Asha Macias [phone] Allergies Allergen (clinical drug ingredient) Drug/Non Drug Allergy documented on EMR Reaction Allergy Type Onset Date Status Contrast Dye (uncoded)hives, itchingAllergyActive Results Component Value Reference Range Notes PSA SCREENING Reviewed date:01/05/2025 10:03:58 PM Interpretation: Performing Lab: Notes/Report: [facility] , Prostate Specific Antigen Scrn 1.55 <=4.00 ng/ mL Performing Lab:see note - [facility] LBTSH Reviewed date:01/05/2025 10:03:58 PM Interpretation: Performing Lab: Notes/Report: [facility] ,Thyroid Stimulating Hormone1.2820.358-3.740 uIU/mLPerforming Lab:see note - [facility] LBT4 Reviewed date:01/05/2025 10:03:58 PM Interpretation: Performing Lab: Notes/Report: [facility] ,T4 Thyroxine6.304.50-12.10 ug/dLPerforming Lab:see note - [facility] LBPROF 14(COMP METB) Reviewed date:01/05/2025 10:03:58 PM Interpretation: Performing Lab: Notes/Report: [facility] ,Uhphym442928-365 mmol/LPotassium4.53.5-5.1 mmol/GZtlwketd47631-593 mmol/LCarbon Bllzmsz60.621.0-32.0 mmol/LAnion Gap11.6Zuuqmis52359-367 mg/dLBlood Urea Hwktlgxs48.07.0-18.0 mg/dLCreatinine1.650.70-1.30 mg/dLEstimated GFR ( Jaluhbk53>=60 mL/min/1.73m 2Estimated GFR (Non- Ame40>=60 mL/min/1.73m 2 BUN Creatinine Ratio10.1Xatcqdm0.98.5-10.1 mg/dLBilirubin Total1.00.2-1.0 mg/dL Aspartate Amino Gvfhdjlbzgm4302-97 U/LAlanine Awlybiieswnveorb7275-42 U/L Alkaline Cfamwyqwgpr5190-616 U/LTotal Protein7.06.4-8.2 g/dLAlbumin Level3.43.4- 5.0 g/dLGlobulin3.6Albumin Globulin Ratio0.9Performing Lab:see noteML - [facility] LBLIPID PROFILE Reviewed date:01/05/2025 10:03:58 PM Interpretation: Performing Lab: Notes/Report: [facility] ,Qpvgmquyxgmau172<=150 mg/qOBknfdvxiwgq549<=200 mg/dLHDL Rbmrazfctid2121-16 mg/dL > or =60 mg/dl - LOW CARDIOVASCULAR RISK <40 mg/dl - HIGH CARDIOVASCULAR RISK LDL Cholesterol Cgtzunmqmm519.0 <100 mg/dl OPTIMAL 100-129 mg/dl NEAR OR ABOVE OPTIMAL 130-159 mg/dl BORDERLINE HIGH 160-189 mg/dl HIGH >190 mg/dl VERY HIGH VLDL UDWCWUAHOLB41.0Chol HDL Ratio3.9 3.3 - 4.4 LOW RISK 4.4 - 7.1 AVERAGE RISK 7.1 - 11.0 MODERATE RISK >11.0 HIGH RISK Performing Lab:see noteML - [facility] LBGLYCOHEMOGLOBIN A1C Reviewed date:01/05/2025 10:03:58 PM Interpretation: Performing Lab: Notes/Report: [facility] ,Glycohemoglobin A1C6.34.5-6.2 % ADA RECOMMENDED LIMIT 4.0 - 6.0 ADA THERAPEUTIC TARGET < 7.0 ACTION SUGGESTED > 7.0 Estimated Average Demzefq722Qpfhekxdos Lab:see noteML - [facility] LB FREE T3 Reviewed date:01/05/2025 10:03:58 PM Interpretation: Performing Lab: Notes/Report: [facility] ,Free T32.392.18-3.98 pg/mLPerforming Lab:see noteML - [facility] LB CBC AUTO DIFF Reviewed date:01/05/2025 10:03:58 PM Interpretation: Performing Lab: Notes/Report: [facility] ,White Blood Count8.44.0-11.0 10 3/uLRed Blood Count5.324.70-6.10 10 6/uL Xsuluejmco74.114.0-18.0 g/tHGlxpnoenft10.342.0-54.0 %Mean Corpuscular Rtwlvo13.9 80.0-94.0 fLMean Corpuscular Vmcdbacfun11.325.9-34.0 pgMean Corpuscular HGB Conc 34.029.9-35.2 g/dLRed Cell Distribution Width13.111.0-15.0 %Platelet Ddijb509 150-450 10 3/uLMean Platelet Volume9.49.5-13.5 fLNeutrophils Percent Auto59.8 43.0-75.0 %Lymphocytes Percent Auto26.020.5-60.0 %Monocytes Percent Auto9.71.7- 12.0 %Eosinophils Percent Auto3.60.9-7.0 %Basophils Percent Auto0.50.2-2.0 % Immature Granulocytes Pct Auto0.40.0-0.5 %Neutrophils Absolute Auto5.01.4-6.5 10 3/uLLymphocytes Absolute Auto2.21.2-3.8 10 3/uLMonocytes Absolute Auto0.80.3-0.8 10 3/uLEosinophils Absolute Auto0.30.0-0.7 10 3/uLBasophils Absolute Auto0.00.0- 0.1 10 3/uLImmature Granulocytes Abs Auto0.030.00-0.03 10 3/uLPerforming Lab:see noteML - [facility] LB Reason For Referral No Information Medications Medication SIG (Take, Route, Frequency, Duration) Notes Start Date End Date Status Simvastatin 20 MG TAKE 1 TABLET BY MOUTH EVERY D AY; Duration: 90 ActivePantoprazole Sodium 40 MGTAKE 1 TABLET BY MOUTH EVERY DAY FOR 90 DAYS; Duration: 90ActiveLevothyroxine Sodium 75 MCGTAKE 1 TABLET EVERY DAY; Duration: 90ActiveMultivitamin -1 tablet Orally Once a dayActiveTamsulosin HCl 0.4 MGTAKE 1 CAPSULE BY MOUTH EVERY DAY; Duration: 90 daysActiveWarfarin Sodium 3 MGTAKE 1 TABLET BY MOUTH EVERY DAY OR DIRECTED BY MED MANAGEMENT CLINIC; Duration: 30 ActiveFerrous Sulfate 325 (65 Fe) MGTAKE 1 TABLET BY MOUTH TWICE A DAY; Duration: 90 daysActiveAspirin 81 81 MG1 tablet Orally Once a dayNot-Taking Finasteride 5 MGTAKE 1 TABLET BY MOUTH EVERY DAY; Duration: 90 daysActive Citalopram Hydrobromide 10 MGTAKE 1 TABLET BY MOUTH EVERY DAY; Duration: 90 days Active Immunizations Vaccine Route Administration Date Status Comme nts Flu, Fluad (2588-1346) (29120) 65 yrs+, single-dose syringe IM Intramuscular 06/09/2023 Administered Flu, Fluad (94004) 65 yrs and older, single-dose syringe (1379-6665)IM Vyrzldslfwmrn64/15/2025AdministeredFlu, JeumxuinhcjEdnqkad86/01/2024Administered Social History Tobacco Use: Social History Observation Description Date Details (start date - stop date) Former Smoker NA - NA Tobacco Use/Smoking Question Answer Notes Patient is a former smoker Alcohol Screen (Audit-C) Question Answer Notes Did you have a drink containing alcohol in the p ast year? No Hqokpz4XfgixmsphxlzonQjxvemibYAUWG-P (Standard) Question Answer Notes Did you have a drink containing alcohol in the p ast year? No Ajmgoz6XmaljrbbtblspdZrmnfcpr Problems Problem Type SNOMED Code ICD Code Onset Dates Problem Status W/U Status Risk Notes Problem Hypothyroidism (28098063) Hypothyroidism, unspecified (E03.9) ActiveconfirmedProblemOrthostatic hypotension (95014135)Orthostatic hypotension (I95.1)ActiveconfirmedProblemPalpitations (00587141)Palpitations (R00.2)Active confirmedProblemHyperlipidemia (50012475)Hyperlipidemia (E78.5)Activeconfirmed ProblemCardiomyopathy (54077394)Cardiomyopathy (I42.9)ActiveconfirmedProblem Hypertension (99626153)HTN (hypertension) (I10)ActiveconfirmedProblemCarotid bruit (997171094)Carotid bruit (R09.89)ActiveconfirmedProblemOsteoarthritis of knee (787810432)Osteoarthritis of knee (M17.9)ActiveconfirmedProblemEczema (16862352)Eczema (L30.9)ActiveconfirmedProblemAnemia in chronic kidney disease (630312092)Anemia in chronic kidney disease (D63.1)ActiveconfirmedProblemLeft anterior hemiblock (28353343)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)Activeconfirmed ProblemParoxysmal atrial fibrillation (192096594)Paroxysmal atrial fibrillation (I48.0)ActiveconfirmedProblemType II diabetes mellitus without complication (797065072)Non-insulin dependent type 2 diabetes mellitus (E11.9)Activeconfirmed ProblemLeft inguinal hernia (621402769)Left inguinal hernia (K40.90)Active confirmedProblemCerebral hemorrhage (573496190)CVA (cerebrovascular accident due to intracerebral hemorrhage) (I61.9)ActiveconfirmedProblemEdema (842092036) Bilateral edema of lower extremity (R60.0)ActiveconfirmedProblemDiverticulitis of colon (461930982)Acute diverticulitis (K57.92)ActiveconfirmedProblem Cardiomyopathy (24789437)Non-ischemic cardiomyopathy (I42.9)Activeconfirmed ProblemLower urinary tract symptoms due to benign prostatic hypertrophy (68868884912265)Benign prostatic hypertrophy with urinary obstruction (N40.1) ActiveconfirmedProblemHearing loss (88681070)Deafness (H91.90)Activeconfirmed ProblemHearing loss (32001843)Deaf (H91.90)ActiveconfirmedProblemDiaphragmatic hernia (77742915)Hernia, hiatal (K44.9)ActiveconfirmedProblemBenign prostatic hypertrophy without outflow obstruction (692385391)Benign hypertrophy of prostate (N40.0)ActiveconfirmedProblemHyperparathyroidism due to renal insufficiency (10444355)Secondary hyperparathyroidism (of renal origin) (N25.81) ActiveconfirmedProblemChronic kidney disease due to hypertension (848177530801027)Hypertensive chronic kidney disease, stage 1-4 or unspecified chronic kidney disease (I12.9)ActiveconfirmedProblemPersistent atrial fibrillation (312325658)Persistent atrial fibrillation (I48.19)Activeconfirmed ProblemDiabetes mellitus (03307185)Diabetes mellitus (E11.9)Activeconfirmed ProblemEsophagitis (09381084)Esophagitis (K20.90)ActiveconfirmedProblemChronic kidney disease stage 3 (disorder) (796928569)Chronic kidney disease (CKD), stage III (moderate) (N18.30)Activeconfirmed Vital Signs Heart Rate 81 /min 09/16/2024 Exerljkncrb16.6 degrees Eqjkrrgvmt13/27/2025lood pressure eycyidubc29 mm Hg 05/09/20252403Jdahbhgz79 %09/16/20242012Wboujh45.5 in05/09/2025lood pressure systolic 120 mm Hg05/09/20251590Odbmut584.4 lbs05/09/2025BMI32.02 kg/m205/09/2025 Encounters Encounter Location Date Provider Diagnosis [address] [address] 06/04/2025 Noel Beard Encounter for vaccination Z23 [facility] (PODIATRY) [address] [place] [address] [place] [address] 09/16/2024 Asha Gilberto Bilateral edema of lower extremity R60.0 and Diabetes mellitus E11.9 [facility] [address] [place] [address] 11/08/2024 Noel Beard Hypothyroidism, unspecified E03.9 ; Orthostatic hypotension I95.1 ; Palpitations R00.2 ; Hyperlipidemia E78.5 and Cardiomyopathy I42.[address] [address] 05/09/2025 Noel Beard Benign hypertrophy o f prostate N40.0 ; Anemia in chronic kidney disease D63.1 ; Hypertensive chronic kidney disease, stage 1-4 or unspecified chronic kidney disease I12.9 ; Diabetes mellitus E11.9 and Paroxysmal atrial fibrillation I48.0 [facility] [address] [place] [address] 07/10/2024 Noel Kisha [facility] [place] [address] 01/01/2025[facility] [place] [address]/18/2025Noel Beard Assessments Encounter Date Diagnosis (ICD Code) Assessment Notes Treatment Notes Treatment Clinical Notes Section Notes 09/16/2024 Bilateral edema of lower extremi ty (ICD-10 - R60.0) 09/16/2024Diabetes mellitus (ICD-10 - E11.9)11/08/2024Hypothyroidism, unspecified (ICD-10 - E03.9)11/08/2024Orthostatic hypotension (ICD-10 - I95.1) 05/09/2025nemia in chronic kidney disease (ICD-10 - D63.1)05/09/2025enign hypertrophy of prostate (ICD-10 - N40.0)06/04/2025Encounter for vaccination (ICD-10 - Z23)05/09/2025Hypertensive chronic kidney disease, stage 1-4 or unspecified chronic kidney disease (ICD-10 - I12.9)11/08/2024Palpitations (ICD- 10 - R00.2)11/08/2024Hyperlipidemia (ICD-10 - E78.5)05/09/2025Diabetes mellitus (ICD-10 - E11.9)05/09/2025Paroxysmal atrial fibrillation (ICD-10 - I48.0) 11/08/2024ardiomyopathy (ICD-10 - I42.9) Plan Of Treatment Pending Test Test Name Order Date CMP (COMPLETE METABOLIC PANEL) 3 CMP (COMPLETE METABOLIC PANEL) 4 HEMOGLOBIN A1C (GLYCO) 11/08/2023 HEMOGLOBIN A1C (GLYCO) 12/16/2022 HEMOGLOBIN A1C (GLYCO) 11/08/2024 LIPID PANEL (CHOL/TRIG/HDL/LDL) 12/17/19 LIPID PANEL (CHOL/TRIG/HDL/LDL) 11/09/19 25 LIPID PANEL (CHOL/TRIG/HDL/LDL) 11/08/19 24 CBC WITH DIFF 11/08/2023 CBC WITH DIFF 12/16/2022 PSA, PROSTATE-SPECIFIC ANTIGEN 3 PSA, PROSTATE-SPECIFIC ANTIGEN 4 URIC ACID 11/08/2023 URIC ACID 12/16/2022 BNP 12/16/2022 THYROID PANEL (T4/TSH/FREE T3) 3 THYROID PANEL (T4/TSH/FREE T3) 4 THYROID PANEL (T4/TSH/FREE T3) 5 PSA, SCREENING 11/08/2024 CMP (COMP MET MNUOZ) w/eGFR CKD-EPI 2024 CBC WITH DIFF 11/08/2024 Next Appt Details Provider Name:Noel Beard, 10:00:00 AM, [address] [place], [address], Insurance Providers Payer Name Payer Address Payer Phone Subscriber Number Group Number Insured Name Patient Relationship to Insured Coverage Start Date Coverage End Date [place] [address] [place] [address] [id number] Geraldo De La Rosaf - patient is the [id number] 2011[facility] [address] [place] [id number], James Self - patient is the [id number] 2023 Medical (General) History Medical History History ICD Code Acute bronchitis J20.9 Over weight E66.3 Benign hypertrophy of prostate N40.0 Bleeding from the nose R04.0 Hernia, hiatal K44.9 Acute diverticulitis K57.92 Osteoarthritis of knee M17.9 Orthostatic hypotension I95.1 Secondary hyperparathyroidism (of renal origin) N25.81 Anemia in chronic kidney disease D63.1 Hypertensive chronic kidney disease, stage 1-4 or unspecified chronic kidney disease I12.9 Gastritis K29.70 Diabetes mellitus E11.9 Bilateral edema of lower extremity R60.0 Cardiomyopathy I42.9 Chronic kidney disease (CKD), stage III (moderate) N18.30 Paroxysmal atrial fibrillation I48.0 Palpitations R00.2 Benign prostatic hypertrophy with urinar y obstruction N40.1 Eczema L30.9 Acute low back pain, unspeci fied back pain laterality, unspecified whether sciatica present M54.50 Carotid bruit R09.89 Left anterior hemiblock I44.4 Hyperlipidemia E78.5 Deafness H91.90 Surgical History Surgery Date(Month/Year) Heart Cath Dr. Johansen 01/16/18 Right Hemicolectomy Colon Polyp removalLeft Inguinal Hernia Repair- Dr. Rodrigues/ospitalization History Reason Date(Month/Year) see above
--- OUTSIDE RECORDS SUMMARY | 2025-07-01 11:29 | XMS_ITS | Clinical Summary ---
Author Organization [employer] [facility] Address [id number] [address] [place] [address] Care Team Providers Care Delicatessen Manager Name Role Phone Lupillo Beard MD Primary Care Provider [phone] Social History Tobacco UseTypesPacks/DayYears UsedDateSmoking Tobacco: Never AssessedSex and Gender InformationValueDate RecordedSex Assigned at BirthNot on fileLegal Sex Male06/19/2024 10:00 PM EDTGender IdentityNot on fileSexual OrientationNot on file Plan of Treatment Not on file Medical Devices Not on file Insurance Care Teams Team MemberRelationshipSpecialtyStart DateEnd Date Lupillo Beard MD [address] [place] [address] PCP - GeneralFamily Mhxejfuq82/31/24
--- OUTSIDE RECORDS SUMMARY | 2025-07-01 11:33 | XMS_ITS | CCD ---
Author Organization [facility] Care Team Providers Care Cold Strip Feeder Name Role Phone PHYSICIAN, DEFAULT Unavailable Unavailable PHYSICIAN, DEFAULT Unavailable Unavailable SHAY, ZOEY Unavailable Unavailable JOSH SHAYESH Unavailable Unavailable PAULINA TYSON Unavailable Unavailable BERNARD BOWERS Unavailable Unavailable Paulina Tyson Primary Care Provider [phone] Attending Provider Jamel Lockhart Attending Provider Taniya Tyson Primary Care Provider [phone] Chad Field Attending Provider Jamel Lockhart Attending Provider Demond Orr Attending Provider Taniya Tyson Primary Care Provider Chad Field Attending Provider Jamel Lockhart Attending Provider [phone] Demond Orr Attending Provider [phone] PAULINA TYSON Admitting Unavailable MARBELLA, DR GALLARDO Primary Care Unavailable DR PAULINA TYSON Consulting Unavailable DR PAULINA TYSON Attending Unavailable MISJaqui, DR BELTRAN Primary Care Unavailable POONAM, DR MCINTOSH Consulting Unavailable POONAM, DR MCINTOSH Attending Unavailable POONAM, DR MCINTOSH Admitting Unavailable HERNESTO, DR BELTRAN Primary Care Unavailable POONAM, DR MCINTOSH Admitting Unavailable POONAM, DR MCINTOSH Attending Unavailable SLIME, DR RENATO Mast Consulting Unavailable TERI, DR MELODY Gatica Attending Unavailabl e TERI, DR MELODY Gatica Admitting Unavailabl e MISC, DR BELTRAN Primary Care Unavailable NAIF BELLO Consulting Unavailable Luis Christian Consulting Unavailable HERNESTO, DR BELTRAN Primary Care Unavailable CURTIS FAGAN Attending Unavailable DAVONTE GARCES Consulting Unavailable CURTIS FAGAN Admitting Unavailable RYLAN, CURTIS Consulting Unavailable SLIME, DR RENATO Mast Consulting Unavailable SLIME, DR RENATO Mast Attending Unavailable SLIME, DR RENATO Mast Admitting Unavailable MARBELLA, DR GALLARDO Primary Care Unavailable MARBELLA, DR GALLARDO Attending Unavailable MARBELLA, DR GALLARDO Primary Care Unavailable MARBELLA, DR GALLARDO Admitting Unavailable MARBELLA, DR GALLARDO Consulting Unavailable WEST, DR CUONG Ghosh Consulting Unavailable HAY, DR BARR Consulting Unavailable Citlali, Osmar Consulting Unavailable Chaabi, Cuong Consulting Unavailable MISC, DR BELTRAN Attending Unavailable MISC, DR BELTRAN Admitting Unavailable MAXIMILIANO, CHAD Consulting Unavailable MARBELLA, DR GALLARDO Primary Care Unavailable MARBELLA, DR GALLARDO Attending Unavailable MARBELLA, DR GALLARDO Admitting Unavailable MARBELLA, DR GALLARDO Primary Care Unavailable MARBELLA, DR GALLARDO Consulting Unavailable WEST, DR CUONG Ghosh Consulting Unavailable Unavailable Unavailable Paulina Tyson Unavailable Paulina Tyson Primary Care Physician Chad Field Unavailable Dr. Viki Cooney Attending Unavailable Eros, Dr. Drew Referring Unavailable Dr. Paulina Tyson Primary Care Unavail able MD Paulina Tyson Primary Care Provider YEIMY Negron Attending Provider MD Chad Field Attending Provider MD Paulina Tyosn Primary Care Provider MD Chad Field Attending Provider [phone] MD Viki Cooney Attending Provider [phone] Paulina Tyson MD Primary Care Provider [phone] MD Paulina Tyson Primary Care Provider MD Paulina Tyson Attending Provider [phone] MD Adebayo Santiago Attending Provider [phone] MD Paulina Tyson Primary Care Provider MD Viki Cooney Attending Provider [phone] Jamel MARTINEZ Attending Unavailable Jamel MARTINEZ Referring Unavailable NILL, Jamel R Admitting Unavailable NILL, Jamel R Attending Unavailable NILL, Jamel R Referring Unavailable NILL, Jamel R Admitting Unavailable NILL, Jamel R Attending Unavailable NILL, Jamel R Referring Unavailable NILL, Jamel R Admitting Unavailable HoyPaulina Referring Unavailable NILL, Jamel R Attending Unavailable NILL, Jamel R Attending Unavailable NILL, Jamel R Attending Unavailable NILL, Jamel R Attending Unavailable NILL, Jamel R Attending Unavailable NILL, Jamel R Attending Unavailable NILL, Jamel R Attending Unavailable NILL, Jamel R Referring Unavailable NILL, Jamel R Admitting Unavailable NILL, Jamel R Attending Unavailable NILL, Jamel R Referring Unavailable NILL, Jamel R Admitting Unavailable DO Tristan Hyde Attending Unavailable Yoselin MCNAIR Attending Unavailable [place], Adebayo Consulting Unavailable Yoselin MCNAIR Admitting Unavailable Eagle LakeMD Martinez Consulting Unavailable [place], Adebayo Consulting Unavailable [place], Adebayo Consulting Unavailable [place], Adebayo Consulting Unavailable [place], Adebayo Consulting Unavailable [place], Adebayo Consulting Unavailable [place], Adebayo Consulting Unavailable [place], Adebayo Consulting Unavailable Juan Ramon Abernathy Attending Unavailable Yoselin MCNAIR Admitting Unavailable [place] LakeMD Adebayo torres Consulting Unavailable Paulina Tyson MD Primary Care Provider [phone] Adebayo Mendoza MD Unavailable [phone] JESS BARRY Attending Unavailable ADEBAYO SANTIAGO Attending Unavailable PAULINA TYSON Primary Care Unavailable ADEBAYO SANTIAGO Referring Unavailable PAULINA TYSON Primary Care Unavailable ADEBAYO SANTIAGO Referring Unavailable PAULINA TYSON Primary Care Unavailable ADEBAYO SANTIAGO Admitting Unavailable ADEBAYO SANTIAGO Attending Unavailable PAULINA TYSON Primary Care Unavailable ADEBAYO SANTIAGO Referring Unavailable PAULINA TYSON Primary Care Unavailable SCOTTIE ALVAREZ Referring Unavailable PAULINA TYSON Primary Care Unavailable Paulina Tyson MD Primary Care Provider [phone] Jess Barry PA-C Attending Provider [phone] Viki Cooney MD Attending Provider Paulina Tyson MD Primary Care Provider [phone] Paulina Tyson MD Primary Care Provider [phone] Jess Barry PA-C Attending Provider Viki Cooney MD Attending Provider EROS, VIKI Attending Unavailable EROS, VIKI Referring Unavailable PAULINA TYSON Primary Care Unavailable VIKI COONEY Attending Unavailable STEVE COONEYA Referring Unavailable PAULINA TYSON Primary Care Unavailable EROS, VIKI Attending Unavailable EROS, VIKI Referring Unavailable PAULINA TYSON Primary Care Unavailable Paulina Tyson MD Primary Care Provider [phone] Chad Field MD Attending Provider Jess Barry Admitting Unavailable Jess aBrry Attending Unavailable Paulina Tyson Primary Care Unavailable Eros, Viki Admitting Unavailable Viki Cooney Attending Unavailable Paulina Tyson Primary Care Unavailable Maximiliano, Chad Attending Unavailable Paulina Tyson Primary Care Unavailable Maximiliano, Chad Admitting Unavailable Paulina Tyson Primary Care Unavailable Maximiliano, Chad Admitting Unavailable Maximiliano, Chad Attending Unavailable Paulina Tyson MD Primary Care Provider [phone] Adebayo Mendoza MD Unavailable Unavailable Unavailable Unavailable Allergies Allergy ClassificationReported Allergen(s)Allergy TypeDate of OnsetReaction(s) Facility (2 sources)No Known Allergies; Translations: [No Known Allergies]Propensity to adverse reactions (disorder)[phone] [facility] Repository (5 sources)Amiodarone; Translations: [amiodarone]Drug AllergyOtherLu[facility] DO Work Phone: (3 sources)Magnesium; Translations: [Magnesium TABS]Drug AllergyGatrointestinal upset, DiarrheaWestbrook [facility] 250 DO Work Phone: Medications Current Medications MedicationDrug Class(es)DatesSig (Normalized)Sig (Original)Acetaminophen (1 source)Start: 08-18-9859esby 1 tablet by mouth every six hours as needed acetaminophen (Tylenol) tablet 650 mgacetaminophen 325 mg / oxyCODONE hydrochloride 5 mg oral tablet (1 source)Opioid AgonistStart: 10-09-2023 End: 28-84-6927aqar 1 tablet by mouth every six hours at mealtimeacetaminophen- oxycodone 325 mg-5 mg Tab 1 tab(s), Oral, q6hr Pain, 18 tab(s), Refill(s) 0, not to exceed 4000 mg acetaminophen per day take with food or milk, [facility]/pharmacy #[id number], 169, cm, 09/19/23 13:10:00 EST, Height/Length Dosing, 89, kg, 09/19/23 13:10:00 EST, Weight Dosing Start Date: 10/09/23 Stop Date: 10/14/23 Status: Orderedaspirin 81 mg delayed release oral tablet (20 sources)Platelet Aggregation Inhibitor, Nonsteroidal Anti-inflammatory Drug Start: 95-04-5235oilh 1 tablet by mouth once dailyaspirin 81 MG EC tablet Take 1 tablet by mouth Daily 06/24/2024 ActiveStart: 46-58-1089cbmw 81 mg by mouth once daily81 mg, oral, Daily, First dose on Mon02/10/24 at 0900, Phase II/On Unit, Do not crush, chew, or split.Start: 02-09-2024 End: 29-28-6653tsqs 324 mg by mouth nbuu948 mg, oral, Once, On Mon02/09/24 at 1700, For 1 dose, PreprocedureStart: 02-09-2024 End: 97-16-3981fold 1 tablet by mouth once dailyAspirin 81 mg tablet,chewable Discontinued 81 MG PO Daily June 18, 2024 12:00am June 10, 2025 10:33amStart: 05-16-2018 End: 08-65-5169ddgp 1 tablet by mouth once dailyAspirin (Aspir-Low) 81 mg Tablet,Delayed Release (Dr/Ec) Discontinued 81 MG PO Daily May 16, 2018 12:00am December 14, 2020 9:50amStart: 01-24-2016 End: 25-80-3664ycwl 1 tablet by mouth once dailyAspirin 81 mg Tablet Discontinued 81 MG PO Daily December 14, 2020 12:00am December 04, 2023 11:31am citalopram 10 mg oral tablet (20 sources)Serotonin Reuptake InhibitorStart: 11-01-2019 End: 23-18-3835sllp 1 tablet by mouth once dailyCitalopram 10 mg Tablet Active 10 MG PO Daily November 25, 2020 12:00am Complies with drug therapyclopidogrel 75 mg oral tablet (6 sources)P2Y12 Platelet InhibitorStart: 67-72-5429xvuj 1 tablet by mouth once dailyclopidogrel (Plavix) 75 mg tablet Indications: Presence of Watchman left atrial appendage closure device Take 1 tablet (75 mg) by mouth once daily. 90 tablet 1 03/04/2024 ActiveStart: 02-09-2024 End: 15-84-2855lclc 1 tablet by mouth once dailyclopidogrel (Plavix) 75 mg tablet Indications: Presence of Watchman left atrial appendage closure device Take 1 tablet (75 mg) by mouth once daily. 90 tablet 1 03/04/2024 Activedocusate sodium 100 mg oral capsule (1 source)Start: 77-38-7329zess 100 mg by mouth twice daily for ojqbtcrexmud958 mg, oral, 2 times daily, First dose on Mon02/09/24 at 2100, Phase II/On Unit, Bowel Regimen - for prevention of constipation Hold for loose stoolsferrous sulfate 325 mg oral tablet (20 sources)Start: 82-97-9270avff 1 tablet by mouth twice dailyFerrous Sulfate 325 mg (65 mg iron) tablet Active 325 MG PO Twice daily June 18, 2024 12:00am Complies with drug therapyStart: 01-07-2021 End: 18-97-8394Vyxwgyd Sulfate 325 mg (65 mg iron) tablet Discontinued 325 MG PO As Directed January 07, 2021 12:00am December 04, 2023 11:32am MWFStart: 12-25-2020 take 1 tablet by mouth twice dailyferrous sulfate 325 mg oral enteric coated tablet 325 mg = 1 tab(s), Oral, BID, Refills(s) 0, Prophylaxis Start Date: 12/25/20 Status: Orderedtake 1 tablet by mouth three times weeklyferrous sulfate 325 (65 Fe) MG tablet Take 1 tablet (65 mg of iron) by mouth 3 times a week. MONDAY, MONDAY, MONDAY 0 Activetake 1 tablet by mouth twice dailyFerrous Sulfate 325 (65 Fe) MG 1 tablet Orally bid for 90 day(s) Activefinasteride 5 mg oral tablet (20 sources)5-alpha Reductase InhibitorStart: 24-00-8665fwjv 1 tablet by mouth once dailyFinasteride 5 mg Tablet Active 5 MG PO Daily November 25, 2020 12:00am Complies with drug therapyIron Chews (1 source)Start: 00-79-5674eazd 1 mg by mouth once dailyIron Chews mg, Oral, Daily, Refills(s) 0 Start Date: 12/25/20 Status: Orderedlevothyroxine sodium 0.075 mg oral tablet (20 sources)l-ThyroxineStart: 06-52-5594qans 1 tablet by mouth once daily Levothyroxine 75 mcg tablet Active 75 MCG PO Daily January 07, 2021 12:00am Complies with drug therapyStart: 77-39-9859oaka 1 tablet by mouth once daily levothyroxine 75 mcg (0.075 mg) Tab mcg tab(s), Oral, Daily, Refills(s) 0, Thyroid Start Date: 12/25/20 Status: OrderedStart: 87-17-7639bwfo 1 tablet by mouth once dailylevothyroxine 75 mcg (0.075 mg) Tab mcg tab(s), Oral, Daily, Refills(s) 0 Start Date: 12/25/20 Status: OrderedMultivitamin (Daily Multi- Vitamin) tablet (9 sources)Start: 75-62-2839aoan 1 tablet by mouth once dailyMultivitamin (Daily Multi-Vitamin) tablet Active 1 TAB PO Daily December 04, 2023 12:00am Complies wi th drug therapyStart: 73-33-6236sytq 1 tablet by mouth once dailyStart: 60-51-7561mcgb 1 tablet by mouth once dailyMultivitamin (Daily Multi-Vitamin) tablet Active 1 TAB PO Daily December 03, 2023 11:00pmStart: 91-21-7485bbxn 1 tablet by mouth once dailyMultivitamin (Daily Multi-Vitamin) tablet Active 1 TAB PO Daily December 04, 2023 12:00ammultivitamin tablet (10 sources)take 1 tablet by mouth once dailymultivitamin tablet Take 1 tablet by mouth once daily. ActiveoxyCODONE hydrochloride 5 mg oral tablet (1 source)Opioid AgonistStart: 10-14-2023 End: 34-86-5573qxqt 2 tablets by mouth every six hours as needed for pain oxyCODONE 5 mg Tab 10 mg = 2 tab(s), Oral, q6hr, PRN for pain, # 24 tab(s), Refills(s) 0, Pharmacy:[facility]/pharmacy #[id number], 169, cm, 09/19/23 13:10:00 EST, Height/Length Dosing, 89, kg, 09/19/23 13:10:00EST, Weight Dosing Start Date: 10/14/23 Stop Date: 10/19/23 Status: Orderedoxygen (O2) therapy (1 source)Start: 84-31-9908hrjonskovh, Continuous PRN - O2/gases, other, Starting on Mon02/09/24 at 1905, Phase II/On Unit, Wean oxygen therapy as tolerated., Device: Nasal Cannula, Rate in liters per minute: 2 LPM, Keep O2 Sat Above: 92%pantoprazole 40 mg delayed release oral tablet (20 sources)Proton Pump InhibitorStart: 72-56-3713vctk 1 tablet by mouth once dailyPantoprazole 40 mg tablet,delayed release (DR/EC) Active 40 MG PO Daily June 18, 2024 10:46am Complies with drug therapyStart: 02-10-2024 pantoprazole (ProtoNix) EC tablet 40 mgStart: 07-21-2023 End: 18-02-7331juvx 1 tablet by mouth twice dailyPantoprazole 40 mg tablet,delayed release (DR/EC) Discontinued 40 MG PO Twice daily December 04, 2023 11:27am June 18, 2024 10:50amStart: 01-07-2021 End: 15-42-0103bqvx 1 tablet by mouth once dailyPantoprazole 40 mg tablet,delayed release (DR/EC) Discontinued 40 MG PO Daily January 07, 2021 12:00am December 04, 2023 11:32amStart: 11-25-2020 End: 96-15-1702dgle 1 tablet by mouth once dailyPantoprazole 40 mg Tablet,Delayed Release (Dr/Ec) Discontinued 40 MG PO Daily November 25, 2020 12:00am December 14, 2020 9:56amProchlorperazine (1 source)PhenothiazineStart: 12-69-7300uayo 1 tablet by mouth every six hours as neededprochlorperazine (Compazine) tablet 10 mgProtonix 40 mg Tab-EC (2 sources)Start: 62-77-0485xthn 1 tablet by mouth once dailyProtonix 40 mg Tab- EC 40 mg = 1 tab(s), Oral, Daily, # 30 tab(s), Refills(s) 0 Start Date: 01/24/16 Status: Orderedsucralfate 1000 mg oral tablet (4 sources)Aluminum ComplexStart: 36-09-0396uuwp 1 tablet by mouth four times dailyCarafate 1 gram Tab 1 gm = 1 tab(s), Oral, QID, # 120 tab(s), Refills(s) 3, Pharmacy: [facility]/pharmacy #[id number], 168.9, cm, 07/21/23 8:34:00 EST, Height/Length Dosing, 85, kg, 07/21/23 8:34:00 EST, Weight Dosing Start Date: 07/21/23 Status: Orderedtamsulosin hydrochloride 0.4 mg oral capsule (20 sources)alpha-Adrenergic BlockerStart: 11-25-2020 End: 04-73-5837jfrt 1 capsule by mouth once dailyTamsulosin 0.4 mg Capsule Active 0.4 MG PO Daily November 25, 2020 12:00am Complies with drug therapy traMADol hydrochloride 50 mg oral tablet (1 source)Opioid AgonistStart: 54-33-7397pqqb 1 tablet by mouth every six hours as dofpok74 mg, oral, Every 6 hours PRN, pain moderate (4-6), first line, Starting on Mon02/09/24 at 1906, Phase II/On Unit, If ordered PRN for pain, nurse is permitted to administer this medication for higher pain scores based on patient preference? Yeswarfarin sodium 3 mg oral tablet (6 sources)Vitamin K AntagonistStart: 69-75-8593Tqtzpbna 3 mg tablet Active 3 MG PO As Directed June 10, 2025 12:00am Complies with drug therapyStart: 03-36-9246hxht 1 tablet by mouth in the morningwarfarin (Coumadin) 7.5 mg tablet Take 1 tablet (7.5 mg) by mouth early in the morning.. 07/07/2024ctive Completed/Discontinued Medications MedicationDrug Class(es)DatesSig (Normalized)Sig (Original)amiodarone hydrochloride 200 mg oral tablet (20 sources)AntiarrhythmicStart: 21-52-1602fhnw 200 mg by mouth twice daily Amiodarone Active 200 MG PO Twice daily May 16, 2018 4:06pmStart: 05-16-2018 End: 16-40-9589yzgu 1 tablet by mouth once dailyAmiodarone 200 mg Tablet Discontinued 200 MG PO Daily May 16, 2018 12:00am December 04, 2023 11:30amtake 1 tablet by mouth every other dayAmiodarone HCl - 200 MG Oral Tablet TAKE 1 TABLET EVERY OTHER DAY Quantity: 0 Refills: 0 Ordered: 02-Dec-2022 DO Activeapixaban 5 mg oral tablet (20 sources)Factor Xa InhibitorStart: 06-18-2024 End: 36-13-7102shvl 2 tablets by mouth twice dailyApixaban (Eliquis) 5 mg tablet Discontinued 10 MG PO Twice daily June 18, 2024 10:53am 2024 10:32amStart: 06-12-2024 End: 63-03-3427nhxj 2 tablets by mouth twice daily, then take 1 tablet by mouth twice dailyapixaban (Eliquis) 5 mg (74 tabs) tablet Indications: Paroxysmal atrial fibrillation (Multi) Take 2tablets (10 mg) by mouth 2 times a day for 7 days, then take 1 tablet (5 mg) by mouth 2 times a day. 84 tablet 06/12/2024 07/15/2024 Discontinued (Alternate therapy)Start: 05-16-2018 End: 97-79-7400mcrg 1 tablet by mouth twice dailyApixaban (Eliquis) 5 mg Tablet Discontinued 5 MG PO Twice daily May 16, 2018 12:00am June 18, 2024 10:54amascorbic acid 113 mg / beta carotene 7160 mg / cuprous oxide 0.4 mg / dl- alpha tocopheryl acetate 100 unt / zinc oxide 17.4 mg oral tablet (14 sources)Vitamin CStart: 12-14-2020 End: 55-50-5243Mjsjrnvt A,C,W-Jdyl-Ovfzpq (Preservision Areds) 7,160 unit- 113 mg-100 unit Tablet Discontinued 2 TAB PO As Directed December 14, 2020 12:00am December 14, 2020 9:56amcalcium carbonate 1500 mg / cholecalciferol 200 unt oral tablet (14 sources)Vitamin DStart: 12-14-2020 End: 91-31-0239zvws 1 tablet by mouth once dailyCalcium Carbonate-Vitamin D3 (Calcium + D) 600 mg(1,500mg) -200 unit Tablet Discontinued 1 TAB PO Daily December 14, 2020 12:00am December 14, 2020 9:56amcalcium chloride 0.0014 meq/ml / potassium chloride 0.004 meq/ml / sodium chloride 0.103 meq/ml / sodium lactate 0.028 meq/ml injectable solution (1 source)Start: 02-09-2024 End: 56-71-3236hzgh 75 mL intravenously every hour75 mL/hr, intravenous, Continuous, Starting on Mon02/09/24 at 1700, For 4 hours, Preprocedurecarvedilol 3.125 mg oral tablet (19 sources)alpha-Adrenergic Xavier, beta-Adrenergic BlockerStart: 05-16-2018 End: 93-19-5920ahlx 1 tablet by mouth twice dailyCarvedilol 3.125 mg Tablet Discontinued 3.125 MG PO Twice daily May 16, 2018 12:00am November 25, 2020 2:00pmceFAZolin 2000 mg injection (1 source)Cephalosporin AntibacterialStart: 02-09-2024 End: g, intravenous, Administer over 30 Minutes, Once, On Mon02/09/24 at 1700, For 1 dose, Preprocedure, Administer within 60 minutes prior to incision. premix bag, Dosing of this medication varies based on severity of illness. Does this patient have sepsis or concern for sepsis (probable or documented infection plus systemic manifestations of infection)? No, Suspected Indication (Select all that apply): Surgical Prophylaxis, Indications: Surgical Prophylaxiscelecoxib 100 mg oral capsule (20 sources)Nonsteroidal Anti-inflammatory DrugStart: 09-11-2020 End: 72-62-3063egea 1 capsule by mouth once dailyCelecoxib 100 mg Capsule Discontinued 100 MG PO Daily November 25, 2020 12:00am December 14, 2020 9:56am ergocalciferol 1.25 mg oral capsule (20 sources)Provitamin D2 CompoundStart: 12-04-2023 End: 72-00-5262wgvc 1 capsule by mouth every weekErgocalciferol (Vitamin D2) 1,250 mcg (50,000 unit) capsule Discontinued 1250 MCG PO every week 14 June 10, 2025 12:00am June 10, 2025 11:07amStart: 01-07-2021 End: 15-77-9877Ejpjwfhqjmhmcf (Vitamin D2) 1,250 mcg (50,000 unit) capsule Discontinued 08785 UNIT PO every week January 07, 2021 12:00am December 04, 2023 11:32amStart: 01-07-2021 End: 58-02-7885axam 19181 [IU] by mouth every weekErgocalciferol (Vitamin D2) Discontinued 80105 UNIT PO every week January 07, 2021 12:00am December 04, 2023 11:32amStart: 70-99-2060Lijickm D2 50,000 intl units (1.25 mg) oral capsule International_Unit cap(s), Oral, Monday, Refills(s) 0 Start Date: 12/25/20 Status: Ordered End: 83-67-1058wqjg 1 capsule by mouth onceergocalciferol (Vitamin D-2) 1.25 MG (76875 UT) capsule Take 1 capsule (50,000 Units) by mouth 1 (one) time per week. EVERY Monday07/15/2024 Discontinued (Therapy completed)take 1 capsule by mouth every weekErgocalciferol 1.25 MG (82827 UT) 1 capsule Orally Q week for 90 day(s) Activefurosemide 20 mg oral tablet (20 sources)Loop DiureticStart: 12-14-2020 End: 13-09-0789plbw 1 tablet by mouth once dailyFurosemide 20 mg Tablet Discontinued 20 MG PO Daily December 14, 2020 12:00am December 14, 2020 9:56am Start: 05-16-2018 End: 04-15-5725eses 1 tablet by mouth once dailyFurosemide 20 mg Tablet Discontinued 20 MG PO Daily May 16, 2018 12:00am November 25, 2020 2:00pm iohexol (OMNIPaque) 350 mg iodine/mL solution 50 mL (1 source)Start: 02-09-2024 End: mL, intravenous, Once in imaging, Starting on Mon02/09/24 at 1221, For 1 doseiohexol (OMNIPaque) 350 mg iodine/mL solution 70 mL (1 source)Start: 06-11-2024 End: mL, intravenous, Once in imaging, Starting on Mon06/11/24 at 1201, For 1 dose24 hr isosorbide mononitrate 30 mg extended release oral tablet (14 sources)Nitrate VasodilatorStart: 12-14-2020 End: 56-24-5830vhcm 1 tablet by mouth once daily, then take 1 tablet by mouth every twenty-four hoursIsosorbide Mononitrate 30 mg Tablet Extended Release 24 Hr Discontinued 30 MG PO Daily December 14, 2020 12:00am December 14, 2020 9:56am latanoprost 0.05 mg/ml ophthalmic solution (14 sources)Prostaglandin AnalogStart: 12-14-2020 End: 09-83-1525jvig 1 drop(s) into the eye(s) once dailyLatanoprost 0.005 % Drops Discontinued 1 DROPS EYE-BOTH Daily December 14, 2020 12:00am December 14, 2 021 9:56amStart: 12-14-2020 End: 60-30-9705mgez 1 drop(s) into the eye(s) once dailyLatanoprost 0.005 % Drops Discontinued 1 DROPS EYE-BOTH Daily December 14, 2020 12:00am December 14, 2 021 9:56amStart: 12-14-2020 End: 80-18-4494ibte 1 drop(s) into the eye(s) once dailyLatanoprost Discontinued 1 DROPS EYE-BOTH Daily December 14, 2020 12:00am December 14, 2020 9:56am lisinopril 5 mg oral tablet (20 sources)Angiotensin Converting Enzyme InhibitorStart: 12-14-2020 End: 40-59-7204ujbe 1 tablet by mouth once dailyLisinopril 5 mg tablet Discontinued 5 MG PO Daily December 14, 2020 12:00am December 14, 2020 9:56am Start: 05-16-2018 End: 89-16-2030vndq 1 tablet by mouth twice dailyLisinopril 5 mg Tablet Discontinued 5 MG PO Twice daily May 16, 2018 12:00am November 25, 2020 2:00pmmagnesium oxide 400 mg oral tablet (2 sources)Start: 87-58-3062poae 1 tablet by mouth twice dailyMagnesium Oxide 400 MG Oral Tablet TAKE 1 TABLET BY MOUTH TWICE DAILY Quantity: 180 Refills: 3 Ordered: 26-Dec-2022 Viki Cooney MD Start : 26-Dec-2022 Active new start midodrine hydrochloride 5 mg oral tablet (19 sources)alpha-Adrenergic AgonistStart: 48-42-7528mhwz 1 tablet by mouth three times daily in the morningMidodrine HCl - 5 MG Oral Tablet TAKE 1 TABLET 3 TIMES DAILY. TAKE FIRST DOSE WHEN GETTING OUT OF BED, 2ND DOSE AT 11 am AND 3RD DOSE AT 4 PM. Quantity: 270 Refills: 1 Ordered: 26-Dec-2022 Viki Cooney MD Start : 26-Dec-2022 Active dose decreasedStart: 09-09-2020 End: 71-08-6157xuzrcmfwe (Proamatine) 10 mg tablet Take 1 tablet (10 mg) by mouth 3 times a day. DO NOT GIVE LAST DOSE OF DAY AFTER 6 PM OR WITHIN 4 HRS OF BEDTIME 0 09/09/2020 09/27/2023 Discontinued (Therapy completed)take 1 tablet by mouth every twelve hoursMidodrine HCl 10 MG 1 tablet Orally Twice a day Active Multivitamin-Iron (Hematinic) (Spectravite) Tablet (14 sources)Start: 12-14-2020 End: 33-10-7130orpv 1 tablet by mouth once dailyMultivitamin-Iron (Hematinic) (Spectravite) Tablet Discontinued 1 TAB PO Daily December 14, 2020 9:42am December 14, 2020 9:56amStart: 12-14-2020 End: 97-08-0611omlm 1 tablet by mouth once dailyMultivitamin-Iron (Hematinic) (Spectravite) Tablet Discontinued 1 TAB PO Daily December 14, 2020 12:00am December 14, 2020 9:56amStart: 12-14-2020 End: 00-83-0445nxds 1 tablet by mouth once dailyMultivitamin-Iron (Hematinic) (Spectravite) Tablet Discontinued 1 TAB PO Daily December 13, 2020 11:00pm December 14, 2020 8:56amsimvastatin 20 mg oral tablet (20 sources)HMG-CoA Reductase InhibitorStart: 01-13-2016 End: 76-78-8310odtk 1 tablet by mouth once dailySimvastatin 20 mg Tablet Discontinued 20 MG PO Daily May 16, 2018 12:00am December 14, 2020 9:56am valsartan 40 mg oral tablet (20 sources)Angiotensin 2 Receptor BlockerStart: 06-18-2024 End: 32-40-6444nhsj 1 tablet by mouth once dailyValsartan 40 mg tablet Discontinued 40 MG PO Daily June 18, 2024 12:00am June 10, 2025 10: 36amStart: 12-98-0772uqzc 1 tablet by mouth once dailyvalsartan (Diovan) 40 mg tablet Indications: Chronic systolic congestive heart failure, NYHA class 2 (Multi) , Non-ischemic cardiomyopathy (Multi) , Mild CAD Take 1 tablet (40 mg) by mouth once daily. 90 tablet 1 03/04/2024 ActiveStart: 02-28-2024 End: 86-64-0528icfm 40 mg by mouth once dailyValsartan Active 40 MG PO Daily June 18, 2024 12:00amStart: 57-93-1159rumg 1 tablet by mouth once daily valsartan (Diovan) 40 mg tablet Indications: Chronic systolic congestive heart failure, NYHA class 2 (Multi) , Mild CAD , Non-ischemic cardiomyopathy (Multi) TAKE 1 TABLET BY MOUTH EVERY DAY 90 tablet 11/16/2023 Activevitamin b12 1 mg oral tablet (3 sources)Vitamin G18Xrvco: 06-24-2024 End: 90-77-8346byhg 1 tablet by mouth once dailycyanocobalamin (Vitamin B-12) 1,000 mcg tablet Take 1 tablet (1,000 mcg) by mouth once daily. 06/24/2024 10/14/2024 Discontinued (Discontinued by another clinician)Start: 30-05-0158kapx 1 tablet by mouth once dailycyanocobalamin 1000 mcg Tab 1,000 mcg = 1 tab(s), Oral, Daily, Refills(s) 0 Start Date: 06/24/24 Status: OrderedVitamin D TABS (20 sources)Vitamin D TABS Take 50,000 unit every Monday Quantity: 0 Refills: 0 Ordered: 01-Nov-2021 DO Active Problems Active Problems Problem ClassificationProblemDateDocumented DateEpisodic/ChronicAbdominal hernia (20 sources)Obstructed inguinal hernia; Translations: [Unilateral inguinal hernia, with obstruction, without gangrene, not specified as recurrent]Onset: 64-92-9242IeqhdmhcMoextbnan pain (20 sources)Left lower quadrant pain; Translations: [Epigastric pain]Onset: 73-82-2293BclxqbntHwypx cerebrovascular disease (11 sources)Cerebral hemorrhage; Translations: [Nontraumatic intracerebral hemorrhage, unspecified]Onset: 22-54-9771JlfiesiMxoafthw reactions (20 sources)Acute eczema; Translations: [Eczema]65-22-3722XtxelcblZvfpdyi dysrhythmias (20 sources)Unspecified atrial fibrillation; Translations: [Paroxysmal atrial fibrillation]Onset: 01-16-2018 Resolved: 360722-49-7795SvzgcqfOyigfwu kidney disease (20 sources)Chronic kidney disease, stage 3 (moderate); Translations: [Chronic kidney disease, unspecified]Onset: 929351-56-7085YwmnaguDrsrocx kidney disease (12 sources)Chronic kidney disease; Translations: [CHRONIC KIDNEY DISEASE STAGE 3B]Onset: 11-02-2020 Resolved: 30-18-7600Gnxbnazife associated with dizziness or vertigo (20 sources)Dizziness and giddiness; Translations: [Dizziness]Onset: 2020 58-31-8389BoebinccFmtuiyojoa disorders (20 sources)Unspecified fascicular block; Translations: [First degree atrioventricular block]Onset: 393412-95-3020PvhzkejTymuknzsca heart failure; nonhypertensive (20 sources)Acute systolic (congestive) heart failure; Translations: [Symptomatic congestive heart failure]Onset: 726723-51-4765UbqpkldWnolucah atherosclerosis and other heart disease (20 sources)Atherosclerotic heart disease of [place] coronary artery without angina pectoris; Translations: [Coronary atherosclerosis]Onset: 01-16-2018 95-98-9195XtbnlnlExcftrrllu and other anemia (1 source)Anemia in chronic kidney disease; Translations: [ANEMIA IN CHRONIC KIDNEY DISEASE]Onset: 34-01-9879CxzzupnBesewuddpy and other anemia (3 sources)Anemia of renal disease; Translations: [Anemia in chronic kidney disease]ChronicDeficiency and other anemia (14 sources)Iron deficiency anemia; Translations: [Iron deficiency anemia, unspecified]08-97-4906PbucifksJfbepcbv mellitus without complication (7 sources)Type 2 diabetes mellitus without complications; Translations: [Diabetes mellitus]Onset: 383288-02-9817TmfzxljAfkrllvx mellitus without complication (12 sources)Prediabetes; Translations: [Prediabetes]91-26-6792AsfcjwxlAjwwtslxv of lipid metabolism (20 sources)Hyperlipidemia, unspecified; Translations: [Pure hypercholesterolemia, unspecified]Onset: 180477-07-9309Emhxaja Diverticulosis and diverticulitis (13 sources)Diverticulitis of large intestine without perforation or abscess without bleeding; Translations: [Diverticulitis of colon]Onset: 02-19-2021 64-26-3634ShlbrmtEusdifyhan disorders (14 sources)Gastroesophageal reflux disease without esophagitis; Translations: [Gastro-esophageal reflux disease without esophagitis]Onset: 73-53-8928Rekmxgj Essential hypertension (1 source)Essential hypertension; Translations: [Essential (primary) hypertension]Onset: 22-86-9588DezwwocYqdpzzbtk and duodenitis (1 source)Chronic gastritis; Translations: [Unspecified chronic gastritis without bleeding]Onset: 26-69-4991VexzvtuPgotzjrvmbwuglrh hemorrhage (1 source)Melena; Translations: [Melena]Onset: 29-96-2842VemjuqckNncbcroxphwrm symptoms and ill-defined conditions (1 source)Nocturia; Translations: [Nocturia]Onset: 27-63-1024AbvjeybxRvxzl valve disorders (11 sources)Mitral valve cxxqkwukpukol65-11-9777VzifnwqYvllepivjxk of prostate (20 sources)Benign prostatic hyperplasia without lower urinary tract symptoms; Translations: [Benign prostatic hypertrophy with outflow obstruction]Onset: 47-85-7901ZvikoumPfmmltixnmdb with complications and secondary hypertension (4 sources)Hypertensive chronic kidney disease with stage 1 through stage 4 chronic kidney disease, or unspecified chronic kidney disease; Translations: [Chronic kidney disease due to hypertension]Onset: 34-35-9245CuzajmqMseprga and fatigue (3 sources)Fatigue; Translations: [Other fatigue]Onset: EpisodicOther acquired deformities (3 sources)Spondylolisthesis; Translations: [Spondylolisthesis, lumbar region] EpisodicOther acquired deformities (3 sources)Spondylolisthesis L5/S1 level; Translations: [Spondylolisthesis, lumbosacral region]EpisodicOther aftercare (5 sources)group home (current) use of anticoagulants; Translations: [group home (current) use of aspirin]Onset: 19-75-8766IasnwhxzFngru aftercare (1 source)group home (current) use of aspirin; Translations: [SENIOR CARE CURRENT USE OF ASPIRIN]Onset: 45-12-5685MxxbvehvHetie aftercare (1 source)Other pearl stringer (current) drug therapy; Translations: [OTH SENIOR CARE CURRENT DRUG THERAPY]Onset: 65-11-1337HezympsoLeirw aftercare (20 sources)Drug therapy finding; Translations: [Long-term (current) use of other medications]Onset: 05-24-2023 Resolved: 917121-80-7164OnqkihjnCdewd aftercare (5 sources)Treatment changed; Translations: [Long-term (current) use of other medications]EpisodicOther aftercare (1 source)Long-term current use of drug therapy; Translations: [Other intermediate (current) drug therapy]Onset: 81-80-7203PldbdgcbEojiz and ill-defined heart disease (12 sources)Heart jirtwyw55-67-5814ZzfoeozIeooe and unspecified benign neoplasm (12 sources)History of polyp of colon; Translations: [Personal history of colonic polyps]Onset: 78-69-0679FcogednzBdqge circulatory disease (14 sources)Presence of other cardiac implants and grafts; Translations: [Other specified cardiac device in situ]Onset: 303246-31-5452UuookuvYtgyr circulatory disease (6 sources)Orthostatic hypotension; Translations: [ORTHOSTATIC HYPOTENSION] Onset: 18-47-7511OzymekwqEpqgw circulatory disease (3 sources)Hypotension, unspecified; Translations: [Hypotension I95.9]Onset: 05-26-2021 Resolved: 66-58-2694SqzdbnxnNxass circulatory disease (11 sources)Carotid nongc95-74-9621QaplzdlrOdcmt circulatory disease (11 sources)Orthostatic laebzvnuqmq34-37-8342GqcyzoniSfflh circulatory disease (9 sources)Chronic hypotension; Translations: [Other hypotension]12-04-2023 EpisodicOther connective tissue disease (4 sources)Weakness of left hand; Translations: [Other symptoms and signs involving the musculoskeletal system]29-80-0648TxhzxlxcWmxrq connective tissue disease (2 sources)Muscle weakness of upper limb; Translations: [Other symptoms and signs involving the musculoskeletal system]97-58-3751ZhhedafjAlyyi diseases of bladder and urethra (1 source)Bladder disorder, unspecified; Translations: [BLADDER DISORDER UNSPECIFIED]Onset: 36-20-4552XuodsycRowsl diseases of kidney and ureters (13 sources)Secondary hyperparathyroidism; Translations: [Secondary hyperparathyroidism of renal origin]06-46-2644OaifcicKrvgd diseases of kidney and ureters (7 sources)Secondary hyperparathyroidism of renal origin; Translations: [Secondary hyperparathyroidism (of renal origin)]Onset: 05-26-2021 Resolved: 47-71-0606MkjetzvTtqyq diseases of kidney and ureters (11 sources)Hyperparathyroidism due to renal zlmmfmmakkpjj54-84-2205ClljirdQaaie diseases of kidney and ureters (1 source)Urinary tract obstruction; Translations: [Other obstructive and reflux uropathy]Onset: 79-16-9520NwwviysiUicmr ear and sense organ disorders (2 sources)Unspecified hearing loss, unspecified ear; Translations: [UNSPECIFIED HEARING LOSS, UNSPECIFIED EAR]Onset: 40-36-7914YgfzwlpAymgu ear and sense organ disorders (1 source)Unspecified hearing loss, bilateral; Translations: [UNSPECIFIED HEARING LOSS BILATERAL]Onset: 34-53-1381AiaqihhNzzcl ear and sense organ disorders (12 sources)Chronic nqjeqakm71-51-7079MdvirvkMkmmd ear and sense organ disorders (13 sources)Hearing loss; Translations: [Unspecified hearing loss, unspecified ear]Onset: 136106-80-2677NlvdsaeBfgsv ear and sense organ disorders (12 sources)Acquired deaf mutism; Translations: [Deaf nonspeaking, not elsewhere classified]23-95-5604WmlkaoxOhcpb ear and sense organ disorders (14 sources)Congenital deaf mutism; Translations: [Deaf nonspeaking, not elsewhere classified]Onset: 464381-23-6454DixqkycEqfsq ear and sense organ disorders (2 sources)Deaf nonspeaking, not elsewhere classified; Translations: [Deaf nonspeaking, not elsewhere classified]Onset: 99-40-5579GeebrumHgvav gastrointestinal disorders (12 sources)Mass of unqui95-98-1216CrdiaxbyVfonn gastrointestinal disorders (12 sources)Dysphagia; Translations: [Other dysphagia]Onset: 44-36-0473Elvjzdhy Other nervous system disorders (3 sources)Chronic pain; Translations: [Other chronic pain]ChronicOther nervous system disorders (1 source)Postoperative pain ; Translations: [Other acute postprocedural pain] Onset: 48-91-3774NkgkfnilBrqwv nutritional; endocrine; and metabolic disorders (20 sources)Body mass index 30+ - obesity; Translations: [Body mass index (BMI) 30.0-30.9, adult]Onset: 516331-67-1274FovewcoXvqzy nutritional; endocrine; and metabolic disorders (1 source)Obesity caused by energy imbalance; Translations: [Other obesity due to excess calories]77-61-4255YmjifurJbvcw nutritional; endocrine; and metabolic disorders (2 sources)Body mass index (BMI) 31.0-31.9, adult; Translations: [Body mass index (BMI) 31.0-31.9, adult]Onset: 97-75-1400XibdlvlOuyut nutritional; endocrine; and metabolic disorders (2 sources)Body mass index (BMI) 30.0-30.9, adult; Translations: [Body mass index (BMI) 30.0-30.9, adult]Onset: 21-72-9235JseuiqxAuxjj nutritional; endocrine; and metabolic disorders (11 sources)Overweight in adulthood with body mass index of 25 or more but less than 30; Translations: [Overweight]EpisodicOther nutritional; endocrine; and metabolic disorders (10 sources)Hyperuricemia; Translations: [Hyperuricemia without signs of inflammatory arthritis and tophaceous disease]22-68-1187IrqafodvDuplg upper respiratory disease (4 sources)Epistaxis; Translations: [EPISTAXIS]Onset: 35-38-9451Kopvjler Pancreatic disorders (not diabetes) (10 sources)Disease of pancreas, unspecified; Translations: [Cyst of pancreas] Onset: 191490-57-5414PbsmjizsNsul-; endo-; and myocarditis; cardiomyopathy (20 sources)Cardiomyopathy, unspecified; Translations: [Cardiomyopathy]Onset: 945711-86-0066PlrffuqRxwvchad codes; unclassified (4 sources)Dependence on other enabling machines and devices; Translations: [Dependence on other enabling machines]Onset: hronic Residual codes; unclassified (12 sources)Chronic back cxxg02-45-1129XwrlsxebZladpujc codes; unclassified (9 sources)History of hernia repair; Translations: [Other specified postprocedural states]26-34-8873AghjrlaoZmenspbr codes; unclassified (12 sources)Never smoked tobacco; Translations: [Other specified health status] Onset: 176158-62-9286ZvgojjrpVuzvlqkh codes; unclassified (2 sources)Other specified health status; Translations: [Other specified health status]Onset: 50-76-7805IqrfjrezKzchkquhaih; intervertebral disc disorders; other back problems (14 sources)Lumbar spondylosis; Translations: [Spondylosis without myelopathy or radiculopathy, lumbar region]86-48-0639CoczgjmCkaibly disorders (14 sources)Hypothyroidism; Translations: [Hypothyroidism, unspecified]Onset: 16-13-7526BqixfqpVrsdjzkhsdwe (2 sources)Unknown / UNK(Unknown)Onset: 92-87-2691Umdwzbjwcelu (1 source)CONTACT W/AND (SUSP) EXPOS COVID-19; Translations: [CONTACT W/AND (SUSP) EXPOS COVID-19]Onset: 48-74-4968Bgetyaehyfen (1 source)CHRN KIDNEY DISEASE STG 3 UNSP; Translations: [CHRN KIDNEY DISEASE STG 3 UNSP]Onset: 04-55-9532Einxundcouce (4 sources)Other persistent atrial fibrillation; Translations: [Other persistent atrial fibrillation (Multi)]Onset: 01-09-2024 Past or Other Problems Problem ClassificationProblemDateDocumented DateEpisodic/Chronic Administrative/social admission (13 sources)Follow-up status; Translations: [Other specified counseling]Onset: 653591-54-5261NbxhghtnT Codes: Fall (1 source)Unspecified fall, initial encounter; Translations: [UNSPECIFIED FALL INITIAL ENCOUNTER]Onset: 09-53-4232IlcyvenaVqkiwghjj and duodenitis (1 source)Gastritis, unspecified, without bleeding; Translations: [GASTRITIS UNS WITHOUT BLEEDING]Onset: 70-50-0319YswsdfmfMijyvcnlkjpci and screening for infectious disease (18 sources)Patient encounter status; Translations: [Other specified vaccination]Onset: 630350-22-8231JbzoxqnsQlxjstskutr chest pain (20 sources)Chest pain, unspecified; Translations: [Chest pain]Onset: 01-16-2018 53-65-5574MuffquciMhsdrrvhkyn deficiencies (2 sources)Iron deficiency; Translations: [Iron deficiency E61.1]Onset: 05-26-2021 Resolved: 68-97-4771WgrhgaapSeeza aftercare (1 source)Surgical follow-up; Translations: [Encounter for follow-up examination after completed treatment for conditions other than malignant neoplasm] 96-39-2073IqjzhnttIeguy aftercare (2 sources)Encounter for follow-up examination after completed treatment for conditions other than malignant neoplasm; Translations: [Encounter for follow-up examination after completed treatment for conditionsother than malignant neoplasm]Onset: 60-46-2371EeytfqslXdpli circulatory disease (3 sources)Hemorrhage, not elsewhere classified; Translations: [HEMORRHAGE NOT ELSEWHERE CLASSIFIED]Onset: 01-65-0761LeaanhcxSbech circulatory disease (20 sources)Sympathotonic orthostatic hypotension; Translations: [Orthostatic hypotension]Onset: 654929-50-6537OvxgzyetFbrkc circulatory disease (2 sources)Other hypotension; Translations: [Chronic hypotension]Onset: 703046-60-2711UpmqfmtoYterv connective tissue disease (11 sources)Recurrent falls ; Translations: [Repeated falls]Onset: 12-08-2023 Resolved: 818588-66-8063NccpttluVmlwy connective tissue disease (1 source)Other symptoms and signs involving the musculoskeletal system; Translations: [Other symptoms and signs involving the musculoskeletal system] Onset: 23-19-7975MsqfbvjbQxbsp gastrointestinal disorders (15 sources)Diarrhea; Translations: [Diarrhea]Onset: EpisodicOther injuries and conditions due to external causes (18 sources)At risk for falls ; Translations: [History of fall]Onset: 05-24-2023 35-98-1524WodvpdlsFjmaw injuries and conditions due to external causes (2 sources)History of falling; Translations: [History of falling]Onset: 81-06-1264WbykhqhjPtsak lower respiratory disease (1 source)Other forms of dyspnea; Translations: [OTHER FORMS OF DYSPNEA]Onset: 65-69-9287DumbmtjyZutpd lower respiratory disease (20 sources)Dyspnea; Translations: [Shortness of breath]Onset: 05-24-2023 20-40-1166HecskcfnPttrn nervous system disorders (20 sources)Tremor; Translations: [Abnormal involuntary movements]Onset: 777794-32-2581YqpoqpbaJizzs nervous system disorders (18 sources)Abnormal gait; Translations: [Abnormality of gait]Onset: 05-24-2023 62-09-3255YfozhygfQrclr nutritional; endocrine; and metabolic disorders (20 sources)Obesity; Translations: [Obesity, unspecified]Onset: 05-24-2023 Resolved: 378348-60-7503JfadjgoFzmoi nutritional; endocrine; and metabolic disorders (4 sources)Hyperuricemia without signs of inflammatory arthritis and tophaceous disease; Translations: [Other abnormal blood chemistry]Onset: 10-09-2024 34-91-8696SmievvkzHdlob screening for suspected conditions (not mental disorders or infectious disease) (20 sources)Encounter for screening for malignant neoplasm of prostate; Translations: [Raised prostate specificantigen]Onset: 05-14-2021 Resolved: 75-62-6170IxqbxgqzXghwiconqbs; intervertebral disc disorders; other back problems (1 source)Low back pain; Translations: [LOW BACK PAIN]Onset: 00-41-2193Oqhbhqgy Superficial injury; contusion (1 source)Contusion of abdominal wall, initial encounter; Translations: [CONTUSION ABDOMINAL WALL INITIAL]Onset: 61-67-4949OqverdclGeegobm (4 sources)Syncope and collapse; Translations: [SYNCOPE AND COLLAPSE]Onset: 69-37-7995GvkmnrqvFbakakucdogq (20 sources)Never smoked tobacco; Translations: [Never a smoker]Unclassified (12 sources)Onset: 05-25-2023 Resolved: Results Test NameValueInterpretationReference RangeFacilityAppearance of UrineOrdered By: Chad Field on 53-26-3842Ahillpdsuv (U)ClearNormalClearMercy HealthComment on above:Order Comment: Name Collection Type:: Clean- Voided MidstreamPerformed By: #### AYE PROCRERAT #### [facility] [address] [place] [address] USABacteria [Presence] in Urine by AutomatedOrdered By: Chad Field on 02-28-2128Jikzyrrk Auto Ql (U)None seen [HPF]None SeenMercy HealthBilirubin Test strip Ql (U)Ordered By: Chad Field on 08-80-8825Cevrjxcwf Ql (U)NegativeNegativeMercy HealthColor of Urine by AutoOrdered By: Chad Field on 18-50-4638Oadlv (U)Light-yellow NormalYellowMercy HealthComment on above:Order Comment: Name Collection Type:: Clean-Voided MidstreamPerformed By: #### AYE PROCRERAT #### [facility] [address] [place] [address] USACreatinine [Mass/volume] in UrineOrdered By: Chad Field on 48-65-7319Bqmairaabk (U) [Mass/Vol]109.00 mg/dLMercy HealthComment on above:No reference range establishedDipstick and Microscopicon 34-59-3889Ymaxgdxy,UrineNone SeenNormalNone SeenThe [facility] Comment on above:Order Comment: Name Collection Type:: Clean-Voided Midstream Performed By: #### ADDONUAPLUS, PROCRERAT #### [place] [address] USABilirubin,UrineNegativeNormalNegativeAdventhealth East Orlando Physician GroupComment on above:Order Comment: Name Collection Type:: Clean- Voided MidstreamPerformed By: #### ADDONUAPLUS, PROCRERAT #### [place] [address] USAGlucose Ql (U)NormalNormalNormalThe [facility] Physician GroupComment on above:Order Comment: Name Collection Type:: Clean-Voided MidstreamPerformed By: #### ADDONUAPLUS, PROCRERAT #### [place] [address] USAHyaline Casts,UrineNoneNormal0-8The [facility] Physician GroupComment on above:Order Comment: Name Collection Type:: Clean-Voided MidstreamPerformed By: #### ADDONUAPLUS, PROCRERAT #### [place] [address] USAMucus,UrineRareNormalThe [facility] Physician GroupComment on above:Order Comment: Name Collection Type:: Clean-Voided MidstreamResult Comment: PERFORMED BY: [place] [address] PATHOLOGIST WILLOW MACHINE OPERATOR AMBER MORA M.D.Performed By: #### ADDONUAPLUS, PROCRERAT #### [place] [address] USANitrite,UrineNegativeNormalNegativeAdventhealth [facility] Physician GroupComment on above:Order Comment: Name Collection Type:: Clean-Voided MidstreamPerformed By: #### ADDONUAPLUS, PROCRERAT #### [place] [address] USAOccult Blood,UrineNegativeNormalNegativeThe [facility] Physician GroupComment on above:Order Comment: Name Collection Type:: Clean- Voided MidstreamPerformed By: #### ADDONUAPLUS, PROCRERAT #### [facility] [address] [place] [address] USAProtein,UrineNegativeNormalNegativeThe [facility] Physician GroupComment on above:Order Comment: Name Collection Type:: Clean-Voided MidstreamPerformed By: #### ADDONUAPLUS, PROCRERAT #### [facility] [address] [place] [address] USARBC,Luede6-1Hxqejt6-8Eel [facility] Physician GroupComment on above:Order Comment: Name Collection Type:: Clean-Voided MidstreamPerformed By: #### ADDONUAPLUS, PROCRERAT #### [place] [address] USASpecificy [place],Urine1.528Lhqkzf6.001-1.030The [facility] Physician GroupComment on above:Order Comment: Name Collection Type:: Clean- Voided MidstreamPerformed By: #### ADDONUAPLUS, PROCRERAT #### [place] [address] USAUrobilinogen,UrineNormalNormalNormalThe [facility] Physician GroupComment on above:Order Comment: Name Collection Type:: Clean- Voided MidstreamPerformed By: #### ADDONUAPLUS, PROCRERAT #### [place] [address] USAWBC,Wvaly6-8Jglfgl8-8Pyn [facility] Physician GroupComment on above:Order Comment: Name Collection Type:: Clean-Voided MidstreamPerformed By: #### ADDONUAPLUS, PROCRERAT #### [place] [address] USAEpithelial cells.squamous [#/area] in Urine sediment by Automated countOrdered By: Chad Field on 79-72-6679Xxpadibbkd cells.squamous Auto (Urine sed) [#/Area]N/[facility] HospitalErythrocytes [#/area] in Urine sediment by Automated countOrdered By: Chad Field on 10-16-9658AIR Auto (Urine sed) [#/Area]1-2 [HPF]0-4FPremier HealthGlucose [Mass/volume] in Urine by Test stripOrdered By: Chad Field on 81-46-0314Nngqwpb Test strip (U) [Mass/Vol]Normal mg/dLNormTriHealth McCullough-Hyde Memorial HospitalHemoglobin Test strip Ql (U)Ordered By: Chad Field on 06-06-2025 Hemoglobin Ql (U)NegativeNegSelect Medical Specialty Hospital - Cleveland-FairhillHyaline casts [#/area] in Urine sediment by Automated countOrdered By: Chad Field on 42-14-1422Ovrsafb casts Auto (Urine sed) [#/Area]None [LPF]0-8Mercy HealthKetones [Presence] in Urine by Test stripOrdered By: Chad Field on 26-97-9646Sotgonk Ql (U)NegativeNormalNegSelect Medical Specialty Hospital - Cleveland-FairhillComment on above:Order Comment: Name Collection Type:: Clean-Voided MidstreamPerformed By: #### ADDONUAPLUS, PROCRERAT #### [facility] [address] [place] [address] USALeukocyte esterase [Presence] in Urine by Test strip Ordered By: Chad Field on 83-16-4443Ewwnbwwln esterase Test strip Ql (U) NegativeNormalSalem City HospitalComment on above:Order Comment: Name Collection Type:: Clean-Voided MidstreamPerformed By: #### ADDONUAPLUS, PROCRERAT #### [facility] [address] [place] [address] USALeukocytes [#/area] in Urine sediment by Automated count Ordered By: Chad Field on 55-91-5848UBA Auto (Urine sed) [#/Area]1-2 [HPF]0-4 Mercy HealthMucus [Presence] in Urine by AutomatedOrdered By: Chad Field on 35-08-0906Hbnjd Auto Ql (U)Rare [LPF]Mercy HealthNitrite Test strip Ql (U)Ordered By: Chad Field on 06-06-2025 Nitrite Ql (U)NegativeNegSelect Medical Specialty Hospital - Cleveland-FairhillProtein Creat Ratio Ur Randomon 04-94-8554Ngbipzhbdq, Urine (Random)109.00 mg/dLNoSampson Regional Medical Center Physician GroupComment on above:Result Comment: No reference range establishedPerformed By: #### TONY GRIFFITHSRERAT #### [place] [address] USAUrine Protein/Creatinine Ratio73 mg/g{Cre}Normal0-200The [facility] Physician GroupComment on above:Result Comment: PERFORMED BY: [place] [address] PATHOLOGIST WILLOW MACHINE OPERATOR AMBER MORA M.D.Performed By: #### TONY GRIFFITHSRERAT #### [place] [address] USAProtein Test strip (U) [Mass/Vol]Ordered By: Chad Maximiliano on 31-74-9815Ebiqgup (U) [Mass/Vol]NegativeNegativeMercy HealthProtein [Mass/volume] in UrineOrdered By: Chad Maximiliano on 89-01-1451Gcyxxeq (U) [Mass/Vol]8 mg/dLNormal0-9Mercy HealthComment on above:Performed By: #### TONY GRIFFITHSRERAT #### [place] [address] USASpecific gravity Test strip (U) [Rel density]Ordered By: Chad Maximiliano on 32-55-2084Zzsqvaya gravity (U) [Rel density]1.0151.001-1.030 Mercy HealthUrine protein/creatinine ratioOrdered By: Chad Maximiliano on 65-82-2678Rsluyzj/Creatinine (U) [Ratio]73 mg/g{Cre}0-200Mercy HealthUrobilinogen Test strip (U) [Mass/Vol]Ordered By: Chad Maximiilano on 65-70-9403Edooqxvfgrch (U) [Mass/Vol]Normal mg/dLNormTriHealth McCullough-Hyde Memorial HospitalpH of Urine by Test stripOrdered By: Chad Maximiliano on 52-48-2909nN (U)5.0 [pH]Normal5.0-9.0Mercy HealthComment on above:Order Comment: Name Collection Type:: Clean-Voided MidstreamPerformed By: #### MAYNOR GRIFFITHS #### [facility] [address] [place] [address] USAAlbumin [Mass/volume] in Serum or Plasma by Bromocresol green (BCG) dye binding methoOrdered By: Chad Maximiliano on 08-97-1157Uhistxr BCG dye [Mass/Vol]3.9 g/dL3.5-5.7FPremier HealthCalcium [Mass/volume] in Serum or PlasmaOrdered By: Chad Maximiliano on 57-09-9032Efkugre [Mass/Vol]8.9 mg/dLNormal8.6-10.3FPremier HealthComment on above:Performed By: #### TONY GRIFFITHSRERAT #### [facility] [address] [place] [address] USACarbon dioxide, total [Moles/volume] in Serum or Plasma Ordered By: Chad Maximiliano on 68-86-9433TZ6 [Moles/Vol]26.3 mmol/INuvimn74.0-31.0 Mercy HealthComment on above:Performed By: #### TONY GRIFFITHSRET #### [facility] [address] [place] [address] USAChloride [Moles/volume] in Serum or PlasmaOrdered By: Chad Maximiliano on 18-75-4345Uouqtdkl [Moles/Vol]106 mmol/OGkaixj59-309TqycfeuxrMercy HealthComment on above:Performed By: #### TONY GRIFFITHSRERAT #### [facility] [address] [place] [address] USACreatinine [Mass/volume] in Serum or PlasmaOrdered By: Chad Maximiliano on 82-81-7391Widjlggmos [Mass/Vol]1.60 mg/dLHigh0.70-1.30Mercy HealthComment on above:Performed By: #### TONY GRIFFITHSRERAT #### [facility] [address] [id number] USAErythrocyte distribution width [Ratio] by Automated count Ordered By: Chad Field on 96-89-4404Qgynsihdxio distribution width (RBC) [Ratio]13.6 %Tsjsby01.0-14.8Mercy HealthComment on above: Performed By: #### PTH, CBCNO, RENAL, URIC, MG, [id number] #### [facility] [address] [id number] USAErythrocytes [#/volume] in Blood by Automated countOrdered By: Chad Field on 36-18-7920IAW (Bld) [#/Vol]5.10 10*6/uLNormal3.90-5.60 Mercy HealthComment on above:Performed By: #### PTH, CBCNO, RENAL, URIC, MG, [id number] #### [facility] [address] [id number] USAGlomerular filtration rate [Volume Rate/Area] in Serum, Plasma or Blood by CreatinineOrdered By: Chad Field on 21-48-8983Kbzlgzejnj filtration rate [Volume Rate/Area] in Serum, Plasma or Blood by Ymkqueqiwx37.557 mL/MinMercy HealthGlucose [Mass/volume] in Serum or Plasma Ordered By: Chad Field on 30-96-8796Icocysz [Mass/Vol]130 mg/pDArnh78-779 Mercy HealthComment on above:ADA recommended reference rangeRandom Glucose Reference Range is dependent on time and content of last meal. Glucose of more than 200 mg/dL in a nonstressed, ambulatory subject supports the diagnosisof Diabetes Mellitus.Result Comment: Random Glucose Reference Range is dependent on time and content of last meal. Glucose of more than 200 mg/dL in a nonstressed, ambulatory subject supports the diagnosis of Diabetes Mellitus. ADA recommended reference rangePerformed By: #### ADDONUADESIREE, PROCRERAT #### [facility] [address] [id number] USAHematocrit [Volume Fraction] of Blood by Automated count Ordered By: Chad Field on 19-27-4295Fmyuodtfgn (Bld) [Volume fraction]45.3 % Ceolwb24.8-50.0Mercy HealthComment on above:Performed By: #### PTH, CBCNO, RENAL, URIC, MG, [id number] #### [facility] [address] [place] [address] USAHemoglobin [Mass/volume] in BloodOrdered By: Chad Field on 58-94-3589Glbauqrjmd (Bld) [Mass/Vol]15.5 g/mWZjboti49.0-17.0Mercy HealthComment on above:Performed By: #### PTH, CBCNO, RENAL, URIC, MG, [id number] #### [facility] [address] [place] [address] USAHemogram CBC Without Diffon 31-38-9121Rsga Corpuscular HGB Conc34.1 g/nLUcbugg21.5-35.6The [facility] Physician GroupComment on above: Performed By: #### PTH, CBCNO, RENAL, URIC, MG, [id number] #### [facility] [address] [place] [address] USAWhite Blood Count6.6 [CFU]/mLNormal4.1-10.5The [facility] Physician GroupComment on above:Performed By: #### PTH, CBCNO, RENAL, URIC, MG, [id number] #### [place] [address] USALeukocytes [#/volume] corrected for nucleated erythrocytes in Blood by Automated counOrdered By: Chad Field on 16-79-1740BJV corrected for nucl RBC Auto (Bld) [#/Vol]6.6 10*3/uL4.1-10.5FPremier HealthMCH [Entitic mass] by Automated countOrdered By: Chad Field on 06-05-2025 MCH (RBC) [Entitic mass]30.3 yyIzhyjs39.5-35.2FPremier Health Comment on above:Performed By: #### PTH, CBCNO, RENAL, URIC, MG, [id number] #### [facility] [address] [place] [address] [facility] Auto (RBC) [Mass/Vol]Ordered By: Chad Field on 18-31-7194JJFY (RBC) [Mass/Vol]34.1 g/dL32.5-35.6FPremier HealthMCV [Entitic volume] by Automated countOrdered By: Chad Field on 71-04-4208AXJ (RBC) [Entitic vol]88.8 jBTtdchy02.5-101Mercy HealthComment on above:Performed By: #### PTH, CBCNO, RENAL, URIC, MG, [id number] #### [address] [address] USAMagnesium [Mass/volume] in Serum or PlasmaOrdered By: Chad Field on 67-91-6688Odcubucgg [Mass/Vol]1.9 mg/dLNormal1.9-2.7FPremier HealthComment on above:Performed By: #### ADDONUAPLUS, PROCRERAT #### [address] [address] USANo Panel InformationOrdered By: Chad Field on 06-05-2025 Pharmacy Creatinine Clearance (ChemN/[facility] Parathyrin.intact [Mass/volume] in Serum or PlasmaOrdered By: Chad Field on 69-16-1484Vzunbwurxd.intact [Mass/Vol]74.6 pg/dC94-23XrtkcxgodMercy HealthParathyroid Hormone Intacton 01-05-6569Frkndrgkrdq Hormone Molxfo87.6 pg/tLEbikcc12-31Blp [facility] Physician GroupComment on above:Result Comment: PERFORMED BY: [address] [address] PATHOLOGIST WILLOW MACHINE OPERATOR AMBER MORA M.D.Performed By: #### PTH, CBCNO, RENAL, URIC, MG, [id number] #### [address] [address] USAPhosphate [Mass/volume] in Serum or PlasmaOrdered By: Chad Field on 41-96-4065Njrgrfopv [Mass/Vol]3.2 mg/dLNormal2.5-4.5FPremier HealthComment on above:Performed By: #### TONY GRIFFITHSRERAT #### [place] [address] USAPlatelet mean volume [Entitic volume] in Blood by Automated countOrdered By: Chad Maximiliano on 65-31-8906Erxrbljn mean volume (Bld) [Entitic vol]7.9 fLNormal6.6-10.1FPremier HealthComment on above:Result Comment: PERFORMED BY: [place] [address] PATHOLOGIST WILLOW MACHINE OPERATOR AMBER MORA M.D.Performed By: #### PTH, CBCNO, RENAL, URIC, MG, [id number] #### [place] [address] USAPlatelets [#/volume] in Blood by Automated countOrdered By: Chad Maximiliano on 88-76-6397Cboqjgdao (Bld) [#/Vol]195 10*3/oNCymliy451-261 Mercy HealthComment on above:Performed By: #### PTH, CBCNO, RENAL, URIC, MG, [id number] #### [place] [address] USAPotassium [Moles/volume] in Serum or PlasmaOrdered By: Chad Maximiliano on 67-04-5929Sbudfmvhg [Moles/Vol]4.4 mmol/LNormal3.5-5.1FPremier HealthComment on above:Performed By: #### TONY GRIFFITHSRERAT #### [place] [address] USARenal Function Panelon 63-73-7093Pycgkqo [Mass/Vol]3.9 g/dLNormal3.5-5.7The [facility] Physician GroupComment on above:Performed By: #### TONY GRIFFITHSRERAT #### [address] [place] [address] USAGFR/1.73 sq M.predicted MDRD (S/P/Bld) [Vol rate/Area] 43.557 mL/min/{1.73_m2}NormalThe [facility] Hospital Physician GroupComment on above: Performed By: #### TONY GRIFFITHSRERAT #### [place] [address] USASerum or plasma anion gap determinationOrdered By: Chad Maximiliano on 37-50-4259Sieuz gap [Moles/Vol]11.1 mmol/LNormal6.0-15.0Mercy HealthComment on above:Performed By: #### TONY GRIFFITHSRERAT #### [place] [address] USASodium [Moles/volume] in Serum or PlasmaOrdered By: Chad Maximiliano on 71-90-8637Wtwlcf [Moles/Vol]139 mmol/EHloblt729-640DjohgmfsuMercy HealthComment on above:Performed By: #### TONY GRIFFITHSRERAT #### [place] [address] USAUrate [Mass/volume] in Serum or PlasmaOrdered By: Chad Maximiliano on 80-77-3690Eormq [Mass/Vol]8.4 mg/dLHigh4.4-7.6FPremier HealthComment on above:Performed By: #### TONY GRIFFITHSRERAT #### [facility] [address] [place] [address] USAUrea nitrogen [Mass/volume] in Serum or PlasmaOrdered By: Chad Maximiliano on 41-58-3540Xpml nitrogen [Mass/Vol]17 mg/dLNormal7-25Mercy HealthComment on above:Performed By: #### AYE PROCRERAT #### [facility] [address] [place] [address] USAVitamin D 25 Hydroxy Totalon 51-44-7239Wtrvedf D 25 Hydroxy Total29.7 ng/nRCtf72-264Kdz [facility] Physician GroupComment on above: Result Comment: VITAMIN D STATUS 25(OH)VITAMIN D RANGE (ng/mL) Deficient <20 Insufficient 20 to <30 Sufficient 30 to 100 Reference: Dejuan Melendez, Eleuterio BUSCH, et al. Evaluation,treatment, and prevention of vitamin D deficiency; an Endocrine Society clinical practice guideline. JCEM. 2010; 96(7):1911-. PERFORMED BY: [facility] [address] [place] [address] PATHOLOGIST WILLOW MACHINE OPERATOR AMBER MORA M.D.Performed By: #### AYE, PROCRERAT #### [facility] [address] StreetVitamin D+Metabolites [Mass/volume] in Serum or Plasma Ordered By: Chad Field on 38-77-8341Czdnqvt D+Metabolites [Mass/Vol]29.7 ng/mL Pta81-697MeeufucfdMercy HealthComment on above:VITAMIN D STATUS 25(OH)VITAMIN D RANGE (ng/mL) Deficient <20 Insufficient 20 to <49Dxwbxfgtcd44 to 100Reference: Dejuan Melendez, Eleuterio BUSCH, et al. Evaluation,treatment, and prevention of vitamin D deficiency; an Endocrine Society clinical practice guideline. JCEM. 2010; 96(7):1911-30.Albumin [Mass/volume] in Serum or Plasma by Bromocresol green (BCG) dye binding metho Ordered By: Chad Field on 58-22-5029Uozmfgq BCG dye [Mass/Vol]Albumin [Mass/volume] in Serum or Plasma by Bromocresol green (BCG) dye binding metho 3.5-5.7FPremier HealthCalcium [Mass/volume] in Serum or Plasma Ordered By: Chad Field on 45-30-4287Xkelgna [Mass/Vol]Calcium [Mass/volume] in Serum or Plasma8.6-10.3FPremier HealthCarbon dioxide, total [Moles/volume] in Serum or PlasmaOrdered By: Chad Field on 79-78-0896PF6 [Moles/Vol]Carbon dioxide, total [Moles/volume] in Serum or Gqphtx97.0-31.0 Mercy HealthChloride [Moles/volume] in Serum or Plasma Ordered By: Chad Field on 36-29-5310Ujtubgjg [Moles/Vol]Chloride [Moles/volume] in Serum or Cwpoci25-624WbdjmxbdgMercy HealthCreatinine [Mass/volume] in Serum or PlasmaOrdered By: Chad Field on 45-33-7951Fgkchcgonq [Mass/Vol]Creatinine [Mass/volume] in Serum or PlasmaHigh0.70-1.30Mercy HealthErythrocyte distribution width Auto (RBC) [Ratio]Ordered By: Chad Field on 14-39-2771Qtuhwefstmx distribution width (RBC) [Ratio] Erythrocyte distribution width [Ratio] by Automated count12.0-14.8Mercy HealthGlucose [Mass/volume] in Serum or PlasmaOrdered By: Chad Field on 50-26-6340Kkipnqc [Mass/Vol]Glucose [Mass/volume] in Serum or Plasma Dvja42-094KvyxnfpufMercy HealthComment on above:ADA recommended reference rangeRandom Glucose Reference Range is dependent on time and content of last meal. Glucose of more than 200 mg/dL in a nonstressed, ambulatory subject supports the diagnosisof Diabetes Mellitus.Hematocrit Auto (Bld) [Volume fraction]Ordered By: Chad Field on 52-97-4501Njttmbdjzq (Bld) [Volume fraction]Hematocrit [Volume Fraction] of Blood by Automated count38.8-50.0 Mercy HealthHemoglobin [Mass/volume] in BloodOrdered By: Chad Field on 26-65-1811Pzqdnxwffp (Bld) [Mass/Vol]Hemoglobin [Mass/volume] in Blood13.0-17.0Mercy HealthHemogram CBC Without Diffon 31-92-4368Hmdnvxajyvx distribution width (RBC) [Ratio]13.3 %Gamuih26.0-14.8The [facility] Physician GroupComment on above:Performed By: #### URIC, RENAL, CBCNO, [id number], PTH, MG #### [facility] [address] [place] [address] USAHematocrit (Bld) [Volume fraction]45.7 %Bomyjd61.8-50.0The [facility] Physician GroupComment on above:Performed By: #### URIC, RENAL, CBCNO, [id number], PTH, MG #### [place] [address] USAHemoglobin (Bld) [Mass/Vol]15.6 g/kWXsadqt43.0-17.0The [facility] Physician GroupComment on above:Performed By: #### URIC, RENAL, CBCNO, [id number], PTH, MG #### [address]MCH (RBC) [Entitic mass]30.3 fgYelueq80.5-35.2The [facility] Physician GroupComment on above:Performed By: #### URIC, RENAL, CBCNO, [id number], PTH, MG #### [address]V (RBC) [Entitic vol]88.7 mINoixmw54.5-101The [facility] Physician GroupComment on above:Performed By: #### URIC, RENAL, CBCNO, [id number], PTH, MG #### [place] [address] USAMean Corpuscular HGB Conc34.2 g/eMZqcbwi35.5-35.6The [facility] Physician GroupComment on above:Performed By: #### URIC, RENAL, CBCNO, [id number], PTH, MG #### [place] [address] USAPlatelet mean volume (Bld) [Entitic vol]8.1 fLNormal 6.6-10.1The [facility] Physician GroupComment on above:Result Comment: PERFORMED BY: [place] [address] PATHOLOGIST WILLOW MACHINE OPERATOR ROCHELLE COYLE M.D.Performed By: #### URIC, RENAL, CBCNO, [id number], PTH, MG #### [address] [address] USAPlatelets (Bld) [#/Vol]231 10*3/iMGdtvuq324-226Sfk [facility] Physician GroupComment on above:Performed By: #### URIC, RENAL, CBCNO, [id number], PTH, MG #### [facility] [address] [place] [address] USARBC (Bld) [#/Vol]5.15 10*6/uLNormal3.90-5.60The [facility] Physician GroupComment on above:Performed By: #### URIC, RENAL, CBCNO, [id number], PTH, MG #### [facility] [address] [place] [address] USAWBC (Bld) [#/Vol]7.4 10*3/uLNormal4.1-10.5The [facility] Physician GroupComment on above:Performed By: #### URIC, RENAL, CBCNO, [id number], PTH, MG #### [facility] [address] [place] [address] USALeukocytes [#/volume] corrected for nucleated erythrocytes in Blood by Automated counOrdered By: Chad Field on 25-67-3043UUF corrected for nucl RBC Auto (Bld) [#/Vol]Leukocytes [#/volume] corrected for nucleated erythrocytes in Blood by Automated coun4.1-10.5FPremier Health MCH Auto (RBC) [Entitic mass]Ordered By: Chad Perezdir on 74-29-0564TKG (RBC) [Entitic mass]MCH [Entitic mass] by Automated count27.5-35.2FPremier HealthMCHC Auto (RBC) [Mass/Vol]Ordered By: Chad Maximiliano on 10-09-2024 MCHC (RBC) [Mass/Vol]MCHC [Mass/volume] by Automated count32.5-35.6FPremier HealthMCV Auto (RBC) [Entitic vol]Ordered By: Chad Perezdir on 03-67-5996AIU (RBC) [Entitic vol]MCV [Entitic volume] by Automated count83.5-101 Mercy HealthMagnesiumon 19-41-4698Vzacupcni [Mass/Vol]1.8 mg/dLLow1.9-2.7The [facility] Physician GroupComment on above:Performed By: #### URIC, RENAL, CBCNO, [id number], PTH, MG #### [facility] [address] [id number] USAMagnesium [Mass/volume] in Serum or PlasmaOrdered By: Chad Field on 18-15-8162Hobgkmhdo [Mass/Vol]Magnesium [Mass/volume] in Serum or PlasmaLow1.9-2.7FPremier HealthNo Panel InformationOrdered By: Chad Field on 43-09-6978Pfumtzufq GFR (CKD-EPI)52.937 mL/MinMercy HealthPharmacy Creatinine Clearance (ChemN/[facility] HospitalParathyrin.intact [Mass/volume] in Serum or PlasmaOrdered By: Chad Field on 88-97-1826Oawtrjjsfj.intact [Mass/Vol]Parathyrin.intact [Mass/volume] in Serum or McvsolSspi09-05EvowcvesrMercy Health Parathyroid Hormone Intacton 19-69-3713Llpmwyiecrp Hormone Muptin102.3 pg/mLHigh -The [facility] Physician GroupComment on above:Result Comment: PERFORMED BY: [facility] [address] [place] [id number] PATHOLOGIST WILLOW MACHINE OPERATOR ROCHELLE COYLE M.D.Performed By: #### URIC, RENAL, CBCNO, [id number], PTH, MG #### [facility] [address] [id number] USAPhosphate [Mass/volume] in Serum or PlasmaOrdered By: Chad Maximiliano on 37-50-4774Hhktemtnu [Mass/Vol]Phosphate [Mass/volume] in Serum or Plasma2.5-4.5FPremier HealthPlatelet mean volume Auto (Bld) [Entitic vol]Ordered By: Chad Field on 66-94-1730Btoizapy mean volume (Bld) [Entitic vol]Platelet mean volume [Entitic volume] in Blood by Automated count 6.6-10.1FPremier HealthPlatelets Auto (Bld) [#/Vol]Ordered By: Chad Field on 45-53-8744Fabcwhmra (Bld) [#/Vol]Platelets [#/volume] in Blood by Automated bpbxi262-645CwsemjbwqMercy HealthPotassium [Moles/volume] in Serum or PlasmaOrdered By: Chad Field on 28-75-4044Afryudkys [Moles/Vol]Potassium [Moles/volume] in Serum or Plasma3.5-5.1FPremier HealthRBC Auto (Bld) [#/Vol]Ordered By: Chad Field on 77-54-3046LPP (Bld) [#/Vol]Erythrocytes [#/volume] in Blood by Automated count3.90-5.60 Mercy HealthRenal Function Panelon 76-04-5566Ivyhfha [Mass/Vol]3.7 g/dLNormal3.5-5.7The [facility] Physician GroupComment on above: Performed By: #### URIC, RENAL, CBCNO, [id number], PTH, MG #### [facility] [address] [place] [address] USAAnion gap [Moles/Vol]9.6 mmol/LNormal6.0-15.0The [facility] Physician GroupComment on above:Performed By: #### URIC, RENAL, CBCNO, [id number], PTH, MG #### [facility] [address] [place] [address] USACalcium [Mass/Vol]9.0 mg/dLNormal8.6-10.3The [facility] Physician GroupComment on above:Performed By: #### URIC, RENAL, CBCNO, [id number], PTH, MG #### [facility] [address] [place] [address] USAChloride [Moles/Vol]107 mmol/YSupnio33-904Ogx [facility] Physician GroupComment on above:Performed By: #### URIC, RENAL, CBCNO, [id number], PTH, MG #### [facility] [address] [place] [address] USACO2 [Moles/Vol]27.1 mmol/IIdlult86.0-31.0The [facility] Physician GroupComment on above:Performed By: #### URIC, RENAL, CBCNO, [id number], PTH, MG #### [facility] [address] [place] [address] USACreatinine [Mass/Vol]1.36 mg/dLHigh0.70-1.30The [facility] Physician GroupComment on above:Performed By: #### URIC, RENAL, CBCNO, [id number], PTH, MG #### [facility] [address] [place] [address] USAEstimated GFR52.937 mL/MinNormalThe [facility] Physician GroupComment on above:Performed By: #### URIC, RENAL, CBCNO, [id number], PTH, MG #### [place] [address] USAGlucose [Mass/Vol]105 mg/gKFarr39-261Nyk [facility] Physician GroupComment on above:Result Comment: Random Glucose Reference Range is dependent on time and content of last meal. Glucose of more than 200 mg/dL in a nonstressed, ambulatory subject supports the diagnosis of Diabetes Mellitus. ADA recommended reference rangePerformed By: #### URIC, RENAL, CBCNO, [id number], PTH, MG #### [place] [address] USAPhosphate [Mass/Vol]2.5 mg/dLNormal2.5-4.5The [facility] Physician GroupComment on above:Performed By: #### URIC, RENAL, CBCNO, [id number], PTH, MG #### [place] [address] USAPotassium [Moles/Vol]4.7 mmol/LNormal3.5-5.1The [facility] Physician GroupComment on above:Performed By: #### URIC, RENAL, CBCNO, [id number], PTH, MG #### [place] [address] USASodium [Moles/Vol]139 mmol/DEyluaz661-255Tqf [facility] Physician GroupComment on above:Performed By: #### URIC, RENAL, CBCNO, [id number], PTH, MG #### [facility] [address] [place] [address] USAUrea nitrogen [Mass/Vol]13 mg/dLNormal7-25The [facility] Physician GroupComment on above:Performed By: #### URIC, RENAL, CBCNO, [id number], PTH, MG #### [facility] [address] [place] [address] USASerum or plasma anion gap determinationOrdered By: Chad Maximiliano on 56-97-7565Uxqih gap [Moles/Vol]Serum or plasma anion gap determination 6.0-15.0Doctors Hospitalodium [Moles/volume] in Serum or PlasmaOrdered By: Chad Maximiliano on 67-12-0372Uzjukx [Moles/Vol]Sodium [Moles/volume] in Serum or Haxtgh358-123GgtnatgehMercy HealthUrate [Mass/volume] in Serum or PlasmaOrdered By: Chad Maximiliano on 69-22-8716Krwih [Mass/Vol]Urate [Mass/volume] in Serum or Plasma4.4-7.6FPremier HealthUrea nitrogen [Mass/volume] in Serum or PlasmaOrdered By: Chad Maximiliano on 48-52-6760Eubf nitrogen [Mass/Vol]Urea nitrogen [Mass/volume] in Serum or Plasma7-25Mercy HealthUric Acidon 78-21-1921Vnnnu [Mass/Vol]7.0 mg/dLNormal4.4-7.6The [facility] Physician GroupComment on above: Performed By: #### URIC, RENAL, CBCNO, [id number], PTH, MG #### [facility] [address] [place] [address] USAVitamin D 25 Hydroxy Totalon 64-23-0887Ppuymzx D 25 Hydroxy Total34.1 ng/kRLdwzhr36-676Xtl [facility] Physician GroupComment on above:Result Comment: VITAMIN D STATUS 25(OH)VITAMIN D RANGE (ng/mL) Deficient <20 Insufficient 20 to <30 Sufficient 30 to 100 Reference: Altaf MF,Dejuan NC, Eleuterio BUSCH, et al. Evaluation,treatment, and prevention of vitamin D deficiency; an Endocrine Society clinical practice guideline. JCEM. 2010; 96(7):1911-30. PERFORMED BY: [facility] [address] [facility] [place] [address] PATHOLOGIST WILLOW MACHINE OPERATOR ROCHELLE COYLE M.D.Performed By: #### URIC, RENAL, CBCNO, [id number], PTH, MG #### [facility] [address] [place] [address] [facility] CARE FACILITYVitamin D+Metabolites [Mass/volume] in Serum or Plasma Ordered By: Chad Field on 09-98-2795Rfmuibm D+Metabolites [Mass/Vol]Vitamin D+Metabolites [Mass/volume] in Serum or Wzurnu86-257XaifuaapyMercy HealthComment on above:VITAMIN D STATUS 25(OH)VITAMIN D RANGE (ng/mL) Deficient <20 Insufficient 20 to <50Sojlphwgih74 to 100Reference: Altaf MF,Dejuan NC, Eleuterio BUSCH, et al. Evaluation,treatment, and prevention of vitamin D deficiency; an Endocrine Society clinical practice guideline. JCEM. 2010; 96 (7):1911-30.BMPon 34-75-1330Wlcnf gap [Moles/Vol]11 mmol/LNormal6-16[facility] Orrville HospitalComment on above:Performed By: #### [id number] #### [facility] [address] [place], [place] [address]Kcdoacq [Mass/Vol]8.9 mg/dLNormal8.9-11.1Fisher University Of Maryland Medical CenterComment on above:Performed By: #### [id number] #### [facility] [address] [facility] [place], [place] [address]Gcohyvgs [Moles/Vol]104 mmol/AMuqcwz627-855YqnzduAultman Orrville HospitalComment on above:Performed By: #### [id number] #### [facility] [address] [place], [place] [address]KI8 [Moles/Vol]25 mmol/TNyizhn14-90NbbnxqAultman Orrville Hospital Comment on above:Performed By: #### [id number] #### [facility] [address] [place], [place] [address]Hubobemthq [Mass/Vol]1.4 mg/dLHigh0.5-1.3FRegency Hospital CompanyComment on above:Performed By: #### [id number] #### [facility] [address] [place], [place] [address]Ndeqsju [Mass/Vol]116 mg/rMFlvudj80-208WirdobAultman Orrville HospitalComment on above:Performed By: #### [id number] #### [facility] [address], [place] [address]Yhuernpko [Moles/Vol]4.3 mmol/LNormal3.5-5.3FRegency Hospital CompanyComment on above:Performed By: #### [id number] #### [facility] [address], [place] [address]Wezfvi [Moles/Vol]136 mmol/FYqdvsr745-483JpqiveAultman Orrville HospitalComment on above:Performed By: #### [id number] #### [facility] [address], [place] [address]Bmls nitrogen [Mass/Vol]18 mg/dLNormal5-21A[facility] Orrville HospitalComment on above:Performed By: #### [id number] #### [facility] [address], [place] [address]Ptfq nitrogen/Creatinine [Mass ratio]13 No RnlgvAhvaec63-61 [facility]rville HospitalComment on above:Performed By: #### [id number] #### [facility] [address], [place] [address]NGVJRJQEFCsgzidf By: SYSTEM SYSTEM on 85-58-9578Coupi gap [Moles/Vol]11 mmol/LNormal6 - 16 mEq/LRemisol ChemCalcium [Mass/Vol]8.9 mg/dL Normal8.9 - 11.1 mg/dLRemisol ChemChloride [Moles/Vol]104 mmol/GVksdfd983 - 111 mmol/LRemisol ChemCO2 [Moles/Vol]25 mmol/WNewlmf67 - 31 mmol/LRemisol Chem Creatinine [Mass/Vol]1.4 mg/dLHigh0.5 - 1.3 mg/dLRemisol DwbidTEG87 mL/min/1.73 m2Low>=59mL/min/1.73 z2Srgacsg ChemGlucose [Mass/Vol]116 mg/bZSbqqfv96 - 199 mg/dLRemisol ChemPotassium [Moles/Vol]4.3 mmol/LNormal3.5 - 5.3 mmol/LRemisol ChemSodium [Moles/Vol]136 mmol/SLkdwie132 - 145 mmol/LRemisol ChemUrea nitrogen [Mass/Vol]18 mg/dLNormal5 - 21 mg/dLRemisol ChemUrea nitrogen/Creatinine [Mass ratio]13 mg/diJpcufs65 - 20Remisol ChemCT HEAD OR BRAIN W/O CONTRASTon 06-24-2024 Exam Date/Time: 06/24/2024 06:01 EST Reason for [...] as low as reasonably achievable. Ordering Provider: Adebayo Mendoza FINAL REPORT Dictated: 06/24/2024 7:56 am Sudhakar Worrell M.D. Signed (Electronic Signature): 06/24/2024 7:56 am Signed by: Sudhakar Worrell M.D. Transcribed by: TATY Technologist: [facility], Radiologist, - 06/24/2024 Exam Date/Time: 06/24/2024 06:01 [...] as low as reasonably achievable. Ordering Provider: Adebayo Mendoza FINAL REPORT Dictated: 06/24/2024 7:56 am Sudhakar Worrell M.D. Signed (Electronic Signature): 06/24/2024 7:56 am Signed by: Sudhakar Worrell M.D. Transcribed by: TATY Technologist: [facility] HealthcareRadiology Study observation (narrative)[facility] HealthcareCT HEAD OR BRAIN W/O CONTRASTOrdered By: Radiologist Radiology on 30-87-6260OTNL [place] Work Phone: ct Head or Brain w/o Contraston [id number] Head or Brain w/o ContrastExam Date/Time: 06/24/2024 06:01 EST Reason for Exam: [...] as low as reasonably achievable. Ordering Provider: Adebayo Mendoza FINAL REPORT Dictated: 06/24/2024 7:56 am Sudhakar Worrell M.D. Signed (Electronic Signature): 06/24/2024 7:56 am Signed by: Sudhakar Worrell M.D. Transcribed by: TATY Technologist: ZafarAultman Orrville HospitalHEMATOLOGY Ordered By: SYSTEM SYSTEM on 16-35-8706Rdqwmnumvv (Bld) [Volume fraction]46.0 % Lyetpc49.7 - 49.0 %Remisol HemeHemoglobin (Bld) [Mass/Vol]16.0 g/dJXmqmxp64.5 - 17.5 gm/dLRemisol HemeHct & Hgbon 08-72-4854Gtjpnzynbk (Bld) [Volume fraction] 46.0 %Witqjm77.7-49.0[facility]rville HospitalComment on above:Performed By: #### [id number] #### [facility] [address], [place] [address]Kwlknidmji (Bld) [Mass/Vol]16.0 g/jFLpwnld36.5-17.5FRegency Hospital CompanyComment on above:Performed By: #### [id number] #### [facility] [address], [place] [address]Ssekghhxm Clinical Summaryon 28-81-2512Idqvkfkwx Clinical SummaryInpatient Clinical Summary [address] [address] Clinical Summary Person Information: Name: AYAD DE LA ROSA Age: 78 Years : 1945 Sex: Male PCP: Paulina Tyson MD Marital Status: Race: White Ethnicity: Non- or Language: Sign Language Visit Id: Visit Reason: Weakness or fatigue; Facial droop; Dizziness; Potential stroke; POSS STROKE Speciality: Acuity: Enc Type: Inpatient Med Service: Medical Arrival: 06/19/2024 21:04:40 Discharge: Dispo Type: Admitted as IP to this Hosp Address: [address] [facility] [id number] Provider Notes: Diagnosis: 1:Acute ischemic stroke; 2:Intraparenchymal hemorrhage of brain; 3:Dizziness on standing; 4:Black stool; 5:Paroxysmal atrial fibrillation; 6:Coronary atherosclerosis; 7:HTN (hypertension); 8:Hyperlipidemia; 9:Deaf b/l needs sign language; 10:CKD (chronic kidney disease) stage 3, GFR 30-59 ml/min; 11 :Hypothyroidism; 12:Chronic GERD; 13:On deep vein thrombosis (DVT) prophylaxis Problems Active Acute postoperative pain of groin Reducible left inguinal hernia BMI 31.0-31.9,adult Abnormal abdominal CT scan Pancreatic cyst Incarcerated left inguinal hernia Other dysphagia Chronic GERD Abdominal pain, generalized HI (mitral incompetence) Epigastric pain Personal history of colonic polyps Hyperlipidemia Congestive heart failure Tremor (05/24/2023) Paroxysmal atrial fibrillation Orthostatic hypotension Obesity (05/24/2023) Lumbar spondylosis Left anterior fascicular block Iron deficiency anemia Hypothyroidism Hyperparathyroidism due to renal insufficiency First degree atrioventricular block (2020) Eczema Diverticulitis of colon Diaphragmatic hernia Carotid bruit Cardiomyopathy Coronary atherosclerosis (01/16/2018) Anemia in chronic kidney disease Acquired deaf mutism. Elevated PSA BPH with urinary obstruction CKD (chronic kidney disease) stage 3, GFR 30-59 ml/min Smoking Status: Never Smoker Functional Status: Sensory Deficits: History of Falls: Mobility Assistance Prior to Admission: ADLs: Minimal assistance Current Level of Assistance for Self-Care/Mobility: Cognitive Status: Oriented x 3 Allergies No Known Allergies Measurements: Height: 92.8 cm Weight: 91.2 kg Blood Pressure: 127 mmHg / 72 mmHg BMI: 32.35 kg/m2 Procedures EULALIA procedure (06/21/2024) Immunizations No Immunizations Documented This Visit Final Med List: aspirin (aspirin 81 mg Oral EC Tab) 1 Tablets By Mouth every day. citalopram (citalopram 10 mg Tab) By Mouth every day. cyanocobalamin (cyanocobalamin 1000 mcg Tab) 1 Tablets By Mouth every day. ferrous sulfate (ferrous sulfate 325 mg oral enteric coated tablet) 1 Tablets By Mouth 2 times a day. finasteride (finasteride 5 mg Tab) 1 Tablets By Mouth every day. Refills: 3. levothyroxine (levothyroxine 75 mcg (0.075 mg) Tab) By Mouth every day. pantoprazole (Protonix 40 mg Tab-DR) 1 Tablets By Mouth 2 times a day. Refills: 3. simvastatin (simvastatin 20 mg Tab) 1 Tablets By Mouth once a day (at bedtime). tamsulosin (Flomax 0.4 mg Cap) 1 Capsules By Mouth every day. Refills: 3. Care Team Members: Attending Physician: Yoselin MCNAIR DO Consulting Physician: Adebayo Mendoza MD Referring Physician: Follow up: With: Address: When: Paulina Tyson [address] [place] [address] [place] [address] Business (1) Comments: Call for followup appointment 7-10 days With: Address: When: [place] [address] Within 1 to 2 weeks Patient Education Information: Core Measures: Stroke (Cerebrovascular Accident) [facility], ([facility] HospitalIn[facility] Patient Summaryon [id number] Patient SummaryInpatient Patient Summary AYAD DE LA ROSA :1945 Visit Date:06/19/2024 Inpatient Discharge Instructions Your Care Team Admitting Physician - Yoselin MCNAIR DO Consulting Physician - Adebayo Mendoza MD Reason for Your Visit Left facial drooping and left body weakness Your Diagnosis Acute ischemic stroke Intraparenchymal hemorrhage of brain Dizziness on standing Black stool Paroxysmal atrial fibrillation Coronary atherosclerosis HTN (hypertension) Hyperlipidemia Deaf b/l needs sign language CKD (chronic kidney disease) stage 3, GFR 30-59 ml/min Hypothyroidism Chronic GERD On deep vein thrombosis (DVT) prophylaxis Dizziness Facial droop Potential stroke Weakness or fatigue Tests Performed Brain MRI w/o Contrast CT Head or Brain w/o Contrast CTA Head CTA Neck Echo Transesophageal 2D Echo Transthoracic Complete Modified Barium Swallow - Adult XR Chest Single View This Is Your Medications List aspirin (aspirin 81 mg Oral EC Tab) citalopram (citalopram 10 mg Tab) cyanocobalamin (cyanocobalamin 1000 mcg Tab) ferrous sulfate (ferrous sulfate 325 mg oral enteric coated tablet) finasteride (finasteride 5 mg Tab) levothyroxine (levothyroxine 75 mcg (0.075 mg) Tab) pantoprazole (Protonix 40 mg Tab-DR) simvastatin (simvastatin 20 mg Tab) tamsulosin (Flomax 0.4 mg Cap) [Image Removed: STOP]Stop taking these medications amiodarone (amiodarone 200 mg Tab) apixaban (Eliquis 5 mg oral tablet) celecoxib (CeleBREX 100 mg Cap) valsartan (valsartan 40 mg Tab) Procedure History EULALIA procedure (06/21/2024), Repair of left inguinal hernia (10/09/2023), Colonoscopy (07/21/2023), Esophagogastroduodenoscopy (07/21/2023), Cystoscopy (06/05/2018), Right hemicolectomy (01/19/2016), Colonoscopy (12/30/2015), TRUS (transrectal ultrasound) guided cryoablation of prostate (01/13/2015), Cardiac catheterization, combined right and left heart, Cataract extraction and IOL (implantation of intraocular lens). Discharge Vitals Temperature (Axillary) 36.6 ???C Heart Rate (Monitored) 74 Respiratory Rate 18 Blood Pressure 127/72 Weight 91.2 kg What to do next Instructions From Your Doctor Event Name Event Result Discharge Activity Activity as tolerated Discharge Diet(s) Regular Pending Diagnostic Test Results None Discharge Instructions IMPORTANT :Pt on aspirin 81 mg daily for 1 week then starting next Monday07/01/24 the patient willneed PT/INR & start Coumadin-once therapeutic between 2-3 INR stop the aspirin-Will need CLOSE monitoring of INR to assess for bleeding -Coumadin Clinic New Follow Up Appointments after Discharge Follow Up with Paulina Tyson When: Comments: Call for followup appointment 7-10 days Where: [facility] [place] [address]- Business (1) Follow Up with Reji CHATMAN, EARNESTINE Martinez When: Within 1 to 2 weeks [facility] [place] [address]- Medications What How Much When Instructions Next Dose New aspirin (aspirin 81 mg Oral EC Tab) 1 Tablets By Mouth Every day 06/25 @ 0900am New cyanocobalamin (cyanocobalamin 1000 mcg Tab) 1 Tablets By Mouth Every day 06/2500am Unchanged citalopram (citalopram 10 mg Tab) By Mouth Every day 06/2500am Unchanged ferrous sulfate (ferrous sulfate 325 mg oral enteric coated tablet) 1 Tablets By Mouth 2 times a day 06/2400pm Unchanged finasteride (finasteride 5 mg Tab) 1 Tablets By Mouth Every day 06/2500am Unchanged levothyroxine (levothyroxine 75 mcg (0.075 mg) Tab) By Mouth Every day 06/2500am Unchanged pantoprazole (Protonix 40 mg Tab-DR) 1 Tablets By Mouth 2 times a day 06/24 @00pm Unchanged simvastatin (simvastatin 20 mg Tab) 1 Tablets By Mouth Once a day (at bedtime) 06/2400pm Unchanged tamsulosin (Flomax 0.4 mg Cap) 1 Capsules By Mouth Every day 06/25 0900am What How Much When Comments Stop Taking amiodarone (amiodarone 200 mg Tab) Stop Taking apixaban (Eliquis 5 mg oral tablet) By Mouth 2 times a day Stop Taking celecoxib (CeleBREX 100 mg Cap) 1 Capsules By Mouth Every day Stop Taking valsartan (valsartan 40 mg Tab) 1 Tablets By Mouth Every day Test Results CBC BMP WBC: 8.2 E9/L (06/19/24 20:50:00) Glucose Lvl: 116 mg/dL (06/24/24 06:26:00) RBC: 4.9 E12/L (06/19/24 20:50:00) BUN: 18 mg/dL (06/24/24 06:26:00) HGB: 16 gm/dL (06/24/24 06:26:00) Creatinine: 1.4 mg/dL High (06/24/24 06:26:00) Hct: 46 % (06/24/24 06:26:00) BUN/Creat Ratio: 13 (06/24/24 06:26:00) MCV: 89.1 fL (06/19/24 20:50:00) Sodium Lvl: 136 mmol/L (06/24/24 06:26:00) MCH: 31.4 pg (06/19/24 20:50:00) Potassium Lvl: 4.3 mmol/L (06/24/24 06:26:00) MCHC: 35.2 gm/dL (06/19/24 20:50:00) Chloride: 104 mmol/L (06/24/24 06:26:00) RDW: 13.9 % (06/19/24 20:50:00) CO2: 25 mmol/L (06/24/24 06:26:00) Platelet: 199 E9/L (06/19/24 20:50:00) AGAP: 11 mE (more content not included)...[facility] In[facility] Patient SummaryInpatient Patient Summary [place] [address] Patient Discharge Instructions PERSON INFORMATION Name: AYAD DE LA ROSA Date of : 1945 Current Date: 06/24/2024 11:54:11 PHYSICIANS Admitting Physician: Yoselin MCNAIR DO Primary Care Physician: Paulina Tyson MD PCP Comment: Discharge Diagnosis: 1:Acute ischemic stroke; 2:Intraparenchymal hemorrhage of brain; 3:Dizziness on standing; 4:Black stool; 5:Paroxysmal atrial fibrillation; 6:Coronary atherosclerosis; 7:HTN (hypertension); 8:Hyperlipidemia; 9:Deaf b/l needs sign language; 10:CKD (chronic kidney disease) stage 3, GFR 30-59 ml/min; 11:Hypothyroidism; 12:Chronic GERD; 13:On deep vein thrombosis (DVT) prophylaxis Condition at Discharge: Stable AYAD DE LA ROSA has been given the following list of follow-up instructions, prescriptions, and patient education materials: PATIENT FOLLOW-UP INFORMATION Diet: Regular Discharge Activity: Activity as tolerated Discharge Restrictions: Wound Care Instructions: Remove Your Dressing In Days Call Your Doctor For: IF UNABLE TO CONTACT YOUR PHYSICIAN AND YOU FEEL IT IS AN EMERGENCY, GO TO THE NEAREST EMERGENCY ROOM OR CALL 911 Home Treatment: Devices/Equipment: None Special Services: Additional Instructions: IMPORTANT :Pt on aspirin 81 mg daily for 1 week then starting next Monday07/01/24 the patient will need PT/INR & start Coumadin-once therapeutic between 2-3 INR stop theaspirin-Will need CLOSE monitoring of INR to assess for bleeding -Coumadin Clinic Primary Care Physician to provide the following pending test results: None Follow up: With: Address: When: Paulina Tyson [address] [facility], [place] [address] Business (1) Comments: Call for followup appointment 7-10 days With: Address: When: Reji CHATMAN, EARNESTINE Martinez [place] [address] [place] [address] Within 1 to 2 weeks In the event that this physician does not participate in your insurance network, please consult with your insurance company to find a nearby participating provider. Comment: KATTY Joseph JAMES A, have received the attached patient education materials/instructions and have verbalized understanding: Patient Signature Date Clinican/Nurse Signature Date HERE ARE THE MEDICATION CHANGES THAT OCCURRED DURING YOUR HOSPITAL STAY New Medications Other Medications aspirin (aspirin 81 mg Oral EC Tab) 1 Tablets By Mouth every day. Last Dose: Next Dose: cyanocobalamin (cyanocobalamin 1000 mcg Tab) 1 Tablets By Mouth every day. Last Dose: Next Dose: Medications to Continue with No Changes Other Medications citalopram (citalopram 10 mg Tab) By Mouth every day. Last Dose: Next Dose: ferrous sulfate (ferrous sulfate 325 mg oral enteric coated tablet) 1 Tablets By Mouth 2 times a day. Last Dose: Next Dose: finasteride (finasteride 5 mg Tab) 1 Tablets By Mouth every day. Refills: 3. Last Dose: Next Dose: levothyroxine (levothyroxine 75 mcg (0.075 mg) Tab) By Mouth every day. Last Dose: Next Dose: pantoprazole (Protonix 40 mg Tab-DR) 1 Tablets By Mouth 2 times a day. Refills: 3. Last Dose: Next Dose: simvastatin (simvastatin 20 mg Tab) 1 Tablets By Mouth once a day (at bedtime). Last Dose: Next Dose: tamsulosin (Flomax 0.4 mg Cap) 1 Capsules By Mouth every day. Refills: 3. Last Dose: Next Dose: No Longer Take the Following Medications amiodarone (amiodarone 200 mg Tab) apixaban (Eliquis 5 mg oral tablet) By Mouth 2 times a day. celecoxib (CeleBREX 100 mg Cap) 1 Capsules By Mouth every day. valsartan (valsartan 40 mg Tab) 1 Tablets By Mouth every day. Comment: MEDICATION LIST PROVIDED FOR YOU IS A LIST OF YOUR CURRENT MEDICATIONS. PLEASE CARRY THIS WITH YOU AT ALL TIMES. aspirin (aspirin 81 mg Oral EC Tab) 1 Tablets By Mouth every day. citalopram (citalopram 10 mg Tab) By Mouth every day. cyanocobalamin (cyanocobalamin 1000 mcg Tab) 1 Tablets By Mouth every day. ferrous sulfate (ferrous sulfate 325 mg oral enteric coated tablet) 1 Tablets By Mouth 2 times a day. finasteride (finasteride 5 mg Tab) 1 Tablets By Mouth every day. Refills: 3. levothyroxine (levothyroxine 75 mcg (0.075 mg) Tab) By Mouth every day. pantoprazole (Protonix 40 mg Tab-DR) 1 Tablets By Mouth 2 times a day. Refills: 3. simvastatin (simvastatin 20 mg Tab) 1 Tablets By Mouth once a day (more content not included)...[facility] HospitalInterdisciplinary Note - Case Manageron 18-25-6469Zxtfaikhjzliahxmf Note - Case ManagerInterdisciplinary Note - Abrasive Wheel Molder Patient is awake in chair, at bedside. Pt is deaf, attempted several times to communicate using keyboard instrument tuner camilo per , unsuccessful. communicated with writing to patient and . Patient is accepted to [facility], has met 3MN stay and awaiting medical clearance. Patient and awaiting rounds with [facility]. CRM will update on plans for DC once known. Medicare rights reviewed. Contact information provided and white board updated. CRM returrned to pt room, updated on plan to DC today to [facility], and will check to see if transport available, aware and [facility]:Result Comment: Electronically Signed By: Jose DAILEY, Mariza\.yessi\Date and Time Signed: 06/24/24 11:08 Chitra 02-51-9219eHKD04 mL/min/1.73 m2Low>=59[facility]rville HospitalComment on above:Performed By: #### [id number] #### [facility] [address], [place] [address]JKQoc 41-34-3508Crtrb gap [Moles/Vol]10 mmol/LNormal6-16[facility] HospitalComment on above:Performed By: #### [id number] #### [facility] [address], [place] [address]Banekjd [Mass/Vol]8.9 mg/dLNormal8.9-11.1FRegency Hospital CompanyComment on above:Performed By: #### [id number] #### [facility] [address], [place] [address]Hufvynyn [Moles/Vol]105 mmol/XEkvhks643-114CowxujAultman Orrville HospitalComment on above:Performed By: #### [id number] #### [facility] [address], [place] [address]DC7 [Moles/Vol]30 mmol/ZObtfgp80-11IshzdbAultman Orrville Hospital Comment on above:Performed By: #### [id number] #### [facility] [address], [place] [address]Fpsllahpbt [Mass/Vol]1.6 mg/dLHigh0.5-1.3FRegency Hospital CompanyComment on above:Performed By: #### [id number] #### [facility] [address], [place] [address]Hvlmvjb [Mass/Vol]111 mg/rBYpnwuk36-401YwmfzrAultman Orrville HospitalComment on above:Performed By: #### [id number] #### [facility] [address], [place] [address]Vhtejkyje [Moles/Vol]5.0 mmol/LNormal3.5-5.3FRegency Hospital CompanyComment on above:Performed By: #### [id number] #### [facility] [address], [place] [address]Vddgky [Moles/Vol]140 mmol/YDkbjgn134-731XjdeicAultman Orrville HospitalComment on above:Performed By: #### [id number] #### [facility] [address], [place] [address]Dsqg nitrogen [Mass/Vol]19 mg/dLNormal5-21[facility] HospitalComment on above:Performed By: #### [id number] #### [facility] [address], [place] [address]Fccb nitrogen/Creatinine [Mass ratio]12 No XnfkfOuuvnv83-93 [facility] HospitalComment on above:Performed By: #### [id number] #### [facility] [address], [place] [address]GREFJYYDAQxobqtv By: SYSTEM SYSTEM on 70-59-4815Diapu gap [Moles/Vol]10 mmol/LNormal6 - 16 mEq/LRemisol ChemCalcium [Mass/Vol]8.9 mg/dL Normal8.9 - 11.1 mg/dLRemisol ChemChloride [Moles/Vol]105 mmol/GXvcsmp500 - 111 mmol/LRemisol ChemCO2 [Moles/Vol]30 mmol/EJeyuvi46 - 31 mmol/LRemisol Chem Creatinine [Mass/Vol]1.6 mg/dLHigh0.5 - 1.3 mg/dLRemisol UfipbBPG95 mL/min/1.73 m2Low>=59mL/min/1.73 z0Vvwiehm ChemGlucose [Mass/Vol]111 mg/uYXcbecr61 - 199 mg/dLRemisol ChemPotassium [Moles/Vol]5.0 mmol/LNormal3.5 - 5.3 mmol/LRemisol ChemSodium [Moles/Vol]140 mmol/XPtetur180 - 145 mmol/LRemisol ChemUrea nitrogen [Mass/Vol]19 mg/dLNormal5 - 21 mg/dLRemisol ChemUrea nitrogen/Creatinine [Mass ratio]12 mg/mbPwedjm47 - 20Remisol ChemExtra [place] 55-27-1928YV Tube Collected YesInvalid Interpretation CodeAultman Orrville HospitalComment on above: Performed By: #### [id number] #### [facility] [address], [place] [address]Kafpdbzosizpqklbv Note - Case Manageron 06-21-2024 Interdisciplinary Note - Case ManagerInterdisciplinary Note - Abrasive Wheel Molder Patient is asleep in bed, no family present. PT is accepted to [facility], anticipate DC 06/22. Contact information provided and white board updated. Patient will have EULALIA today, and will remain in hospital onother 24 hours. Will plan to DC to [facility] tomorrow.NormalAultman Orrville HospitalComment on above: Result Comment: Electronically Signed By: Jose DAILEY, Mariza\.br\Date and Time Signed: 06/21/24 10:34 EDTRPR with Conf Rfxon 94-63-0341Umfrjp Ab RPR Ql (S) Non-ReactiveInvalid Interpretation CodeNon ReactiveAultman Orrville Hospital Comment on above:Result Comment: Performed at: [facility] [address] [id number] PhD Regine Mendozaformed By: #### [id number] #### [facility] [address], [place] [address]eGWWbt 36-72-9078vDVL87 mL/min/1.73 m2Low>=59[facility] HospitalComment on above:Performed By: #### [id number] #### [facility] [address] [place] [address], [place] [address]AEOua 36-34-0557Mutdm gap [Moles/Vol]13 mmol/LNormal6-16[facility] HospitalComment on above:Performed By: #### [id number] #### [facility] [address] [place] [address], [place] [address]Hhhwbwc [Mass/Vol]8.5 mg/dLLow8.9-11.1FRegency Hospital CompanyComment on above:Performed By: #### [id number] #### [facility] [address] [place] [address], [place] [address]Osowsaqh [Moles/Vol]107 mmol/MXlogil419-072QuhmiaAultman Orrville HospitalComment on above:Performed By: #### [id number] #### [facility] [address], [place] [address]YW6 [Moles/Vol]22 mmol/UGckaeg91-18XzywqjAultman Orrville Hospital Comment on above:Performed By: #### [id number] #### [facility] [address], [place] [address]Flrvadfluu [Mass/Vol]1.7 mg/dLHigh0.5-1.3FRegency Hospital CompanyComment on above:Performed By: #### [id number] #### [facility] [address] [place], [place] [address]Ohhebkx [Mass/Vol]125 mg/kQLriesl94-418XmskykAultman Orrville HospitalComment on above:Performed By: #### [id number] #### [facility] [address] [place], [place] [address]Fuorqzldd [Moles/Vol]4.6 mmol/LNormal3.5-5.3FRegency Hospital CompanyComment on above:Performed By: #### [id number] #### [facility] [address] [place], [place] [address]Vednuc [Moles/Vol]137 mmol/XSeyonp822-786VmfohhAultman Orrville HospitalComment on above:Performed By: #### [id number] #### [facility] [address] [place] [address], [place] [address]Itkk nitrogen [Mass/Vol]22 mg/dLHigh5-21[facility] HospitalComment on above:Performed By: #### [id number] #### [facility] [address] [place], [place] [address]Hgos nitrogen/Creatinine [Mass ratio]13 No DzzdhYxuwsg08-21 [facility] HospitalComment on above:Performed By: #### [id number] #### [facility] [address] [place] [address], [place] [address]NCMPTPKPMHczcwkq By: SYSTEM SYSTEM on 09-08-1177Bftub gap [Moles/Vol]13 mmol/LNormal6 - 16 mEq/LRemisol ChemCalcium [Mass/Vol]8.5 mg/dLLow 8.9 - 11.1 mg/dLRemisol ChemChloride [Moles/Vol]107 mmol/TZgispj361 - 111 mmol/L Remisol ChemCholesterol [Mass/Vol]191 mg/mOQqhtws873 - 200 mg/dLRemisol Chem Cholesterol in HDL [Mass/Vol]41 mg/dLInvalid Interpretation CodeRemisol Chem Comment on above:Result Comment: '>= 60 LOW RISK' '<= 40 HIGH RISK'Cholesterol in LDL [Mass/Vol]134 mg/dLHigh<=129mg/dLRemisol ChemCholesterol in VLDL [Mass/Vol]33 mg/dLNormal7 - 40 mg/dLRemisol ChemCO2 [Moles/Vol]22 mmol/CBtfovf97 - 31 mmol/LRemisol ChemCobalamin (Vitamin B12) [Mass/Vol]372 pg/iMRucyvn77 - 1500 pg/mLRemisol ChemCreatinine [Mass/Vol]1.7 mg/dLHigh0.5 - 1.3 mg/dLRemisol DvacqKXB02 mL/min/1.73 m2Low>=59mL/min/1.73 m2 Remisol ChemFolate [Mass/Vol]ng/mLNormal>=6.7ng/mLRemisol ChemGlucose [Mass/Vol] 125 mg/jFUuwcah67 - 199 mg/dLRemisol ChemPotassium [Moles/Vol]4.6 mmol/LNormal 3.5 - 5.3 mmol/LRemisol ChemSodium [Moles/Vol]137 mmol/PDvyovv122 - 145 mmol/L Remisol ChemTriglyceride [Mass/Vol]164 mg/dLHigh<=149mg/dLRemisol ChemUrea nitrogen [Mass/Vol]22 mg/dLHigh5 - 21 mg/dLRemisol ChemUrea nitrogen/Creatinine [Mass ratio]13 mg/lwEtidns39 - 20Remisol ChemCHEMISTRYOrdered By: Heather Perera on 31-50-2192Sxkrmipx HS28.60 pg/lBGdteft58.90 - 38.40 pg/mLRemisol Chem Comment on above:Interpretive Data: The 95% CI (Confidence Interval) PPV (Positive Predictive Value) for myocardial infarction in females is 38 pg/mL, in males 51 pg/mL. The results should be used in conjunction withclinical conditions of myocardial infarction. (Access High Sensitivity Troponin I Instructions For Use, Skip Corrine, March 2018)TSH Qn1.68 m[IU]/LNormal0.34 - 5.60 mcIU/mLRemisol ChemCT HEAD OR BRAIN W/O CONTRASTon 06-20-2024 Exam Date/Time: 06/20/2024 16:15 EDT Reason for Exam: Stroke Report IMPRESSION: INTERVAL APPEARANCE OF CORTICAL EDEMA CORRESPONDING WITH RIGHT FRONTAL LOBE ISCHEMIA. NO ACUTE INTRACRANIAL HEMORRHAGE. EXAMINATION: CT of the brain without contrast HISTORY: Stroke. Intracranial hemorrhage. COMPARISON: CT brain 06/19/2024 and MRI brain 06/20/2024 TECHNIQUE: Multiple axial images were obtained of the brain from the skull base through the vertex. Multiplanar reformats were obtained. FINDINGS: Subtle hypodensity of the cortex of the right frontal lobe corresponding to the findings of diffusion restriction on the prior MRI have developed since prior brain CT. No acute intracranial hemorrhage. Prominence of the sulci and ventricles compatible with mild generalized parenchymal volume loss. Areas of bilateral supratentorial white matter hypoattenuation are nonspecific but most likely due to chronic small vessel ischemic changes in a patient of this age. No abnormal extra-axial fluid collection. Basal cisterns are patent. No mass effect or midline shift. The visualized paranasal sinuses and mastoid air cells are clear. Calvarium is intact. All CT scans at this facility use dose modulation, iterative reconstruction, and/or weight based dosing when appropriate to reduce radiation dose to as low as reasonably achievable. Ordering Provider: Calvin Hall FINAL REPORT Dictated: 06/20/2024 4:20 pm Tab Rodriguez DO Signed (Electronic Signature): 06/20/2024 4:20 pm Signed by: Tab Rodriguez DO Transcribed by: TATY Technologist: [facility]ITALRad[facility], Radiologist, - 06/20/2024 Exam Date/Time: 06/20/2024 16:15 EDT Reason for Exam: Stroke Report IMPRESSION: INTERVAL APPEARANCE OF CORTICAL EDEMA CORRESPONDING WITH RIGHT FRONTAL LOBE ISCHEMIA. NO ACUTE INTRACRANIAL HEMORRHAGE. EXAMINATION: CT of the brain without contrast HISTORY: Stroke. Intracranial hemorrhage. COMPARISON: CT brain 06/19/2024 and MRI brain 06/20/2024 TECHNIQUE: Multiple axial images were obtained of the brain from the skull base through the vertex. Multiplanar reformats were obtained. FINDINGS: Subtle hypodensity of the cortex of the right frontal lobe corresponding to the findings of diffusion restriction on the prior MRI have developed since prior brain CT. No acute intracranial hemorrhage. Prominence of the sulci and ventricles compatible with mild generalized parenchymal volume loss. Areas of bilateral supratentorial white matter hypoattenuation are nonspecific but most likely due to chronic small vessel ischemic changes in a patient of this age. No abnormal extra-axial fluid collection. Basal cisterns are patent. No mass effect or midline shift. The visualized paranasal sinuses and mastoid air cells are clear. Calvarium is intact. All CT scans at this facility use dose modulation, iterative reconstruction, and/or weight based dosing when appropriate to reduce radiation dose to as low as reasonably achievable. Ordering Provider: Calvin Hall FINAL REPORT Dictated: 06/20/2024 4:20 pm Tab Rodriguez DO Signed (Electronic Signature): 06/20/2024 4:20 pm Signed by: Tab Rodriguez DO Transcribed by: TATY Technologist: [facility] HealthcareRadiology Study observation (narrative)[facility] HospitalCT [facility] OR BRAIN W/O CONTRASTOrdered By: Radiologist Radiology on [id number] [place] Work Phone: cT Head or Brain w/o Contraston [id number] Head or Brain w/o ContrastExam Date/Time: 06/20/2024 16:15 EDT Reason for Exam: Stroke Report IMPRESSION: INTERVAL APPEARANCE OF CORTICAL EDEMA CORRESPONDING WITH RIGHT FRONTAL LOBE ISCHEMIA. NO ACUTE INTRACRANIAL HEMORRHAGE. EXAMINATION: CT of the brain without contrast HISTORY: Stroke. Intracranial hemorrhage. COMPARISON: CT brain 06/19/2024 and MRI brain 06/20/2024 TECHNIQUE: Multiple axial images were obtained of the brain from the skull base through the vertex. Multiplanar reformats were obtained. FINDINGS: Subtle hypodensity of the cortex of the right frontal lobe corresponding to the findings of diffusion restriction on the prior MRI have developed since prior brain CT. No acute intracranial hemorrhage. Prominence of the sulci and ventricles compatible with mild generalized parenchymal volume loss. Areas of bilateral supratentorial white matter hypoattenuation are nonspecific but most likely due to chronic small vessel ischemic changes in a patient of this age. No abnormal extra-axial fluid collection. Basal cisterns are patent. No mass effect or midline shift. The visualized paranasal sinuses and mastoid air cells are clear. Calvarium is intact. All CT scans at this facility use dose modulation, iterative reconstruction, and/or weight based dosing when appropriate to reduce radiation dose to as low as reasonably achievable. Ordering Provider: Calvin Hall FINAL REPORT Dictated: 06/20/2024 4:20 pm Tab Rodriguez DO Signed (Electronic Signature): 06/20/2024 4:20 pm Signed by: Tab Rodriguez DO Transcribed by: TATY Technologist: [facility] HospitalCT Head or Brain w/o ContrastExam Date/Time: 06/19/2024 21:15 EDT Reason for Exam: Neuro deficit, acute, stroke suspected;Stroke Report IMPRESSION: NO ACUTE INTRACRANIAL PROCESS. GENERALIZED PARENCHYMAL VOLUME LOSS AND NONSPECIFIC WHITE MATTER FINDINGS MOST COMPATIBLE WITH CHRONIC SMALL VESSEL ISCHEMIC CHANGES IN A PATIENT OF THIS AGE. EXAMINATION: CT of the brain without contrast HISTORY: Left-sided weakness. Left-sided facial droop. COMPARISON: None available TECHNIQUE: Multiple axial images were obtained of the brain from the skull base through the vertex. Multiplanar reformats were obtained. FINDINGS: Prominence of the sulci and ventricles compatible with mild generalized parenchymal volume loss. Domingo-white matter differentiation is preserved. Areas of bilateral supratentorial white matter hypoattenuation are nonspecific but most likely due to chronic small vessel ischemic changes in a patient of this age. Tiny remote bilateral basal ganglia lacunar infarcts. No acute hemorrhage or abnormal extra-axial fluid collection. Basal cisterns are patent. No mass effect or midline shift. The visualized paranasal sinuses and mastoid air cells are clear. Calvarium is intact. All CT scans at this facility use dose modulation, iterative reconstruction, and/or weight based dosing when appropriate to reduce radiation dose to as low as reasonably achievable. Ordering Provider: Tristan Hyde FINAL REPORT Dictated: 06/20/2024 10:06 am Tab Rodriguez DO Signed (Electronic Signature): 06/20/2024 10:06 am Signed by: Tab Rodriguez DO Transcribed by: TATY Technologist: [facility] Headon [id number] HeadExam Date/Time: 06/19/2024 21:23 EDT Reason for Exam: NEURO DEFICIT, ACUTE, STROKE SUSPECTED;Other (please specify) Report Please see CTA neck report. Ordering Provider: Tristan Hyde FINAL REPORT Dictated: 06/20/2024 10:21 am Tab Rodriguez DO Signed (Electronic Signature): 06/20/2024 10:21 am Signed by: Tab Rodriguez DO Transcribed by: TATY Technologist: EFRA Silverman GFR (mL/min/1/73m2) na/stroke Contrast: Isovue 370 Contrast amount in ml's: 100[facility] Neck [id number] NeckExam Date/Time: 06/19/2024 21:23 EDT Reason for Exam: NEURO DEFICIT, ACUTE, STROKE SUSPECTED;Other (please specify) Report IMPRESSION: CTA HEAD: NO ANEURYSM OR HIGH-GRADE STENOSIS. CTA NECK: NO DISSECTION OR HIGH-GRADE STENOSIS. Exam: CT angiography of the head CT angiography of the neck History: Left-sided weakness. Left-sided facial droop. Technique: Axial images were obtained from the thoracic inlet through the craig of Green after administration of intravenous contrast. Multiplanar reformatted images and multiplanar maximum intensity projection images were obtained, as were postprocessed 3-D volume rendered images. Luminal narrowings are estimated using NASCET criteria. Comparison: None available Findings: CTA neck: Normal appearance of the aortic arch and its branches. The bilateral common carotid arteries are of normal course and caliber. The bilateral internal and external carotid arteries are of normal course and caliber. The left vertebral artery is patent and dominant. The V4 segment of the right vertebral artery is diminutive in size but patent. Normal course of the vertebral arteries. No dissection, high grade stenosis or aneurysm. CTA head: The internal carotid arteries through the skull base are patent. The bilateral middle cerebral arteries through the trifurcation and opercular branches are patent. Report The basilar artery and posterior cervical arteries are patent. Posterior communicating arteries are patent. The bilateral anterior cerebral arteries and anterior communicating artery are patent. No aneurysm or high-grade stenosis. Dural venous sinuses are patent. All CT scans at this facility use dose modulation, iterative reconstruction, and/or weight based dosing when appropriate to reduce radiation dose to as low as reasonably achievable. Ordering Provider: Tristan Hyde FINAL REPORT Dictated: 06/20/2024 10:17 am Tab Rodriguez DO Signed (Electronic Signature): 06/20/2024 10:17 am Signed by: Tab Rodriguez DO Transcribed by: TATY Technologist: EFRA Technical Comments GFR (mL/min/1/73m2) na Contrast: Isovue 370 Contrast amount in ml's: 100NormalFisher [facility] Maryland Medical CenterECH TRANSTHORACIC COMPLETEon 06-20-2024 Echocardiology Procedure Exam Date/Time Accession # Ordering Echo Transthoracic 06/20/2024 13:13 EDT [id number] Calvin Hall DO Complete CPT code 55174 98017 Reason for Exam (Echo Transthoracic Complete) CVA Report [facility] [address] [place] [address] Adult Echocardiogram Report Name: AYAD DE LA ROSA Study Date: 06/20/2024 12:17 PM BP: 137/82 mmHg Patient Location: [address] [place] [address] Bed(s) [facility] HR: 74 : 1945 Gender: Male Height: 66.5 in Age: 78 yrs Ethnicity: T Weight: 207 lb Reason For Study: CVA BSA: 2.0 m2 History: Watchman device, Hypercholesterolemia, obesity, CAD, DM, PAF, CHF, HI, Cardiomyopathy Ordering Physician: Calvin Hall Performed By: Fauzia Irving RDCS Interpretation Summary [...] 2.7 cm LVIDd: 4.9 cm FS: 13.8 % Ao root diam: 3.3 cm IVSd: 0.90 cm LVIDs: 4.2 cm EDV(Teich): 113.1 ml Ao root area: 8.6 cm2 LVPWd: 0.93 cm ESV(Teich): 79.9 ml LA dimension: 4.2 cm EF(Teich): 29.4 % asc Aorta Diam: 3.3 cm LVLd ap4: 8.5 cm EDV(MOD-sp2): 131.0 ml SV(MOD-sp4): 54.2 ml EDV(MOD-sp4): 131.0 ml ESV(MOD-sp2): 76.4 ml LVLs ap4: 7.9 cm EF(MOD-sp2): 41.7 % ESV(MOD-sp4): 76.8 ml EF(MOD-sp4): 41.4 % TAPSE: 2.1 cm IVC Diam: 2.1 cm RVIDd/LVIDd: 0.55 EF (MOD-bp): 41.5 % LA Vol Index: 47.3 ml/m2 Doppler Measurements \T\ Calculations MV E max vanna: 106.0 cm/sec MV dec time: 0.15 sec Ao V2 max: 153.0 cm/sec LV V1 max P.2 mmHg Lat Peak E' Vanna: 6.7 cm/sec Ao max P.4 mmHg LV V1 mean P.0 mmHg Echocardiology Report E/E' Lat: 15.8 (more content not included)...FTRadiology, Radiologist, - 06/20/2024 Echocardiology Procedure Exam Date/Time Accession # Ordering Echo Transthoracic 06/20/2024 13:13 EDT [id number] Calvin Hall DO Complete CPT code 36860 [id number] Reason for Exam (Echo Transthoracic Complete) CVA Report [address] [address] Adult Echocardiogram Report Name: KATTY, AYAD A Study Date: 06/20/2024 12:17 PM BP: 137/82 mmHg Patient Location: N203 01 [facility] Bed(s) [facility] HR: 74 : 1945 Gender: Male Height: 66.5 in Age: 78 yrs Ethnicity: [facility] Weight: 207 lb Reason For Study: CVA BSA: 2.0 m2 History: Watchman device, Hypercholesterolemia, obesity, CAD, DM, PAF, CHF, HI, Cardiomyopathy Ordering Physician: Calvin Hall Performed By: Fauzia Irving, [facility] Interpretation Summary Left ventricular ejection fraction is [...] 2.7 cm LVIDd: 4.9 cm FS: 13.8 % Ao root diam: 3.3 cm IVSd: 0.90 cm LVIDs: 4.2 cm EDV(Teich): 113.1 ml Ao root area: 8.6 cm2 LVPWd: 0.93 cm ESV(Teich): 79.9 ml LA dimension: 4.2 cm EF(Teich): 29.4 % asc Aorta Diam: 3.3 cm LVLd ap4: 8.5 cm EDV(MOD-sp2): 131.0 ml SV(MOD-sp4): 54.2 ml EDV(MOD-sp4): 131.0 ml ESV(MOD-sp2): 76.4 ml LVLs ap4: 7.9 cm EF(MOD-sp2): 41.7 % ESV(MOD-sp4): 76.8 ml EF(MOD-sp4): 41.4 % TAPSE: 2.1 cm IVC Diam: 2.1 cm RVIDd/LVIDd: 0.55 EF (MOD-bp): 41.5 % LA Vol Index: 47.3 ml/m2 Doppler Measurements \T\ Calculations MV E max vanna: 106.0 cm/sec MV dec time: 0.15 sec Ao V2 max: 153.0 cm/sec LV V1 max P.2 mmHg Lat Peak E' Vanna: 6.7 cm/sec Ao max P.4 mmHg LV V1 mean P.0 mmHg Echocardiology Report E/E' Lat: 15.8 Ao V2 mean: 102.0 cm/sec LV V1 max: 54.8 cm/sec Med Peak E' Vanna: 4.9 cm/sec Ao mean P.0 mmHg LV V1 mean: 35.6 cm/sec E/E' Med: 21.4 Ao V2 VTI: 32.1 cm LV V1 VTI: 11.3 cm TR max vanna: 319.0 cm/sec RAP systole: 3.0 mmHg AV VR: 0.36 TR max P.7 mmHg RVSP(TR): 43.7 mmHg ___ FINAL REPORT Dictated: 06/20/2024 12:17 pm Floyd Galdamez MD Signed (Electronic Signature): 06/20/2024 2:06 pm Signed by: Floyd Galdamez MD Transcribed by: LISE Technologist: KDL [facility] HealthcareRadiology Study observation (narrative)[facility] HealthcareECHO TRANSTHORACIC COMPLETEOrdered By: Radiologist Radiology on [id number] Work Phone: ED Clinical Summaryon [id number] Clinical SummaryED Clinical Summary [address] [address] ED Clinical Summary Person Information Name: AYAD DE LA ROSA/[facility] Age: 78 Years : 1945 Sex: Male Language: Sign Language PCP: Paulina Tyson MD Marital Status: Visit Id: Visit Reason: Weakness or fatigue; Facial droop; Dizziness; Potential stroke; POSS STROKE Speciality: Acuity: 2 Enc Type: Inpatient Med Service: Medical Arrival: 06/19/2024 21:04:40 Discharge: LOS: 000 03:33 Checkin: 06/19/2024 21:04:40 Checkout: 06/20/2024 00:37:56 Dispo Type: Admitted as IP to this [facility] EVENTS: Event Name Event Status Request Date/Time Start Date/Time Complete Date/Time Arrive Complete 06/19/2024 21:04:40 06/19/2024 21:04:40 06/19/2024 21:04:40 Document Home Meds Request 06/19/2024 21:04:40 Triage Complete 06/19/2024 21:04:40 06/19/2024 21:35:19 06/19/2024 21:35:19 Bed Assign Complete 06/19/2024 21:04:40 06/19/2024 21:04:40 06/19/2024 21:04:40 Dr Exam Complete 06/19/2024 21:04:40 06/19/2024 21:06:31 06/19/2024 21:06:31 RN Exam Complete 06/19/2024 21:04:40 06/19/2024 21:56:54 06/19/2024 21:56:54 Registration Complete 06/19/2024 21:06:31 06/19/2024 21:28:01 06/19/2024 21:28:01 NPO Request 06/19/2024 21:07:14 Pending Labs Request 06/19/2024 21:07:14 Blood Collect Request 06/19/2024 21:07:14 Lab Complete 06/19/2024 21:07:14 06/19/2024 21:36:18 Patient Care Request 06/19/2024 21:07:14 CT Complete 06/19/2024 21:07:14 06/19/2024 21:08:03 06/19/2024 21:23:13 X-Ray Complete 06/19/2024 21:07:14 06/19/2024 21:48:02 06/19/2024 22:48:26 RT Request 06/19/2024 21:07:14 Pending Labs Complete 06/19/2024 21:12:44 06/19/2024 21:12:44 06/19/2024 21:36:18 Lab Complete 06/19/2024 21:12:44 06/19/2024 21:12:44 06/19/2024 21:36:18 Reg Complete Request 06/19/2024 21:28:01 Reg Bed Request Complete 06/19/2024 21:28:01 06/19/2024 21:28:01 06/19/2024 21:28:01 EKG Complete 06/19/2024 21:30:42 06/19/2024 21:41:38 Meds Admin Complete 06/19/2024 21:31:35 06/19/2024 21:38:35 Meds Admin Complete 06/19/2024 21:55:21 06/19/2024 22:08:23 Consult Request 06/19/2024 21:56:17 Fall Risk Request 06/19/2024 21:56:55 RR Stroke Request 06/19/2024 21:56:55 Consult Request 06/19/2024 22:41:11 Hospitalist Consult Request 06/19/2024 22:41:11 Admit Request 06/19/2024 22:41:42 Patient Care Request 06/19/2024 22:41:43 Patient Care Request 06/19/2024 22:41:44 Patient Care Request 06/19/2024 22:41:44 Patient Care Request 06/19/2024 22:41:44 Medicare Form Complete 06/19/2024 22:41:45 06/19/2024 22:50:24 Patient Care Request 06/19/2024 22:41:45 Patient Care Request 06/19/2024 22:41:45 Wet Read Request 06/19/2024 22:48:26 Inpatient Bed Ready Complete 06/20/2024 00:37:56 06/20/2024 00:37:56 06/20/2024 00:37:56 ADDRESS: [address] [place] [phone] PHYS DOC NOTES: MEDICAL INFORMATION: Prescriptions Given: Medications to Continue with No Changes Other Medications pantoprazole (Protonix 40 mg Tab-DR) 1 Tablets By Mouth 2 times a day. Refills: 3. simvastatin (simvastatin 20 mg Tab) 1 Tablets By Mouth once a day (at bedtime). PATIENT EDUCATION INFORMATION: Instructions: Follow up: DIAGNOSIS: Acute ischemic strokeNoCenterPointe Hospital Medical CenterED Patient Education Note on [id number] Patient Education NoteED Patient Education NoteNoCenterPointe Hospital Medical CenterED Patient Summaryon [id number] Patient SummaryED Patient Summary [place] [id number] Patient Discharge Instructions Person Information Name: AYAD DE LA ROSA Age: 78 Years Arrival Date: 06/19/2024 21:04:40 Discharge Diagnosis: Acute ischemic stroke Primary Care Physician: Paulina Tyson MD Provider Information Primary Provider: Tristan Hyde DO Advanced Radial Arm Saw Operator:None The exam and treatment you received in the Emergency Department were for an urgent problem and are not intended as complete care. It is important that you follow up with a doctor, nurse practitioner,or physician???s assistant golf professional for ongoing care. If your symptoms become worse or you do not improve asexpected and you are unable to reach your usual health care provider, you should return to the Emergency Department. We are available 24 hours a day. AYAD DE LA ROSA has been given the following list of patient education materials, prescriptions and follow-up instructions: Follow-up Instructions: In the event that this physician does not participate in your insurance network, please consult with your insurance company to find a nearby participating provider. Patient Education Materials: A MESSAGE TO ALL PATIENTS REGARDING OPIOIDS PRESCRIPTION OPIOIDS: WHAT YOU NEED TO KNOW Prescription opioids can be used to help relieve [id number] pain and are often prescribed following a surgery or injury, or for certain health conditions. These medications can be an important part of the treatment but also come with serious risks. It is important to work with your healthcare provider to make sure you are getting the safest, most effective care. WHAT ARE THE RISKS AND SIDE EFFECTS OF OPIOID USE? Prescription opioids carry serious risks of addiction and overdose, especially with prolonged use. An opioid overdose, often marked by slowed breathing, can cause sudden . The use of prescription opioids can have a number of side effects as well, even when taken as directed: ??? Tolerance???meaning you might need to take more of the medication for the same pain relief ??? Physical dependence???meaning you have symptoms of withdrawal when a medication is stopped ??? Increased sensitivity to pain ??? Constipation ??? Nausea, vomiting, and dry mouth ??? Sleepiness and dizziness ??? Confusion ??? Depression ??? Low levels of testosterone that can result in lower sex drive, energy, and strength ??? Itching and sweating RISKS ARE GREATER WITH: ??? History of drug misuse, substance use disorder, or overdose ??? Mental health conditions (such as depression or anxiety) ??? Sleep apnea ??? Older age (65 years and older) ??? Avoid alcohol while taking prescription opioids. Also, unless specifically advised by your health care provider, medications to avoid include: ??? Benzodiazepines (such as Xanax or Valium) ??? Muscle relaxants (such as Soma or Flexeril) ??? Hypnotics (such as Ambien or Lunesta) ??? Other prescription opioids KNOW YOUR OPTIONS Talk to your health care provider about ways to manage your pain that don???t involve prescription opioids. Some of these options may actually work better and have fewer risks and side effects. Options may include: ??? Pain relievers such as acetaminophen, ibuprofen, and naproxen ??? Some medication that are also used for depression or seizures ??? Physical therapy and exercise ??? Cognitive behavioral therapy, a psychological, goal-directed approach, in which patients learn how to modify physical, behavioral, and emotional triggers of pain and stress. IF YOU ARE PRESCRIBED OPIOIDS FOR PAIN: ??? Never take opioids in greater amounts or more often than prescribed. ??? Follow up with your primary health care provider. o Work together to create a plan on how to manage your pain. o Talk about ways to help manage your pain that don???t involve prescription opioids. o Talk about any and all concerns and side effects. ??? Help prevent misuse and abuse o Never sell or share prescription opioids. o Never use another person???s prescription opioids. ??? Store prescription opioids in a secure place and out of reach of others (this may include visitors, children, friends, and family). ??? Safely dispose of unused prescription opioids: Find your community drug take-back program or your pharmacy mail-back program, or flush them down the toilet, following guidance from the Food and Drug Administration (www.fda.gov/Drugs/ResourcesForYou). ??? Visit www.cdc.gov/drugoverdose to learn about the risks of opioids abuse and overdose. ??? If you believe you may be struggling with addiction, tell your health health care recruiter and askfor guidance or call [facility] National Helpline at 0-764-399-AGNS. y Source: US Department of Health and Human Services/Center for Disease Control & Preven (more content not included)...[facility] HospitalExtra See [id number] Tube CollectedYesInvalid Interpretation St. Vincent HospitalComment on above:Performed By: #### [id number] #### [facility] [address] [place], [place] [address]Vefvqhup [id number] [Mass/Vol]ng/mLNormal>=6.7Fisher University Of Maryland Medical CenterComment on above:Performed By: #### [id number] #### [facility] [address] [place], [place] [address]Apgowzsek Clinical Summaryon [id number] Clinical SummaryInpatient Clinical Summary [address] [address] Clinical Summary Person Information: Name: KATTY, AYAD A Age: 78 Years : 1945 Sex: Male PCP: Paulina Tyson MD Marital Status: Race: White Ethnicity: Non- or Language: Sign Language Visit Id: Visit Reason: Weakness or fatigue; Facial droop; Dizziness; Potential stroke; POSS STROKE Speciality: Acuity: Enc Type: Inpatient Med Service: Medical Arrival: 06/19/2024 21:04:40 Discharge: Dispo Type: Admitted as IP to this Hosp Address: [address] [facility] [id number] Provider Notes: Diagnosis: 1:Acute ischemic stroke; 2:CKD (chronic kidney disease) stage 3, GFR 30-59 ml/min; 3:Deaf b/l needssign language; 4:Chronic GERD; 5:Coronary atherosclerosis; 6:Hyperlipidemia; 7:Hypothyroidism; 8:Paroxysmal atrial fibrillation; 9:On deep vein thrombosis (DVT) prophylaxis Problems Active Acute postoperative pain of groin Reducible left inguinal hernia BMI 31.0-31.9,adult Abnormal abdominal CT scan Pancreatic cyst Incarcerated left inguinal hernia Other dysphagia Chronic GERD Abdominal pain, generalized HI (mitral incompetence) Epigastric pain Personal history of colonic polyps Hyperlipidemia Congestive heart failure Tremor (05/24/2023) Paroxysmal atrial fibrillation Orthostatic hypotension Obesity (05/24/2023) Lumbar spondylosis Left anterior fascicular block Iron deficiency anemia Hypothyroidism Hyperparathyroidism due to renal insufficiency First degree atrioventricular block (2020) Eczema Diverticulitis of colon Diaphragmatic hernia Carotid bruit Cardiomyopathy Coronary atherosclerosis (01/16/2018) Anemia in chronic kidney disease Acquired deaf mutism. Elevated PSA BPH with urinary obstruction CKD (chronic kidney disease) stage 3, GFR 30-59 ml/min Smoking Status: Never Smoker Functional Status: Sensory Deficits: History of Falls: Mobility Assistance Prior to Admission: ADLs: Independent Current Level of Assistance for Self-Care/Mobility: Cognitive Status: Oriented x 3 Allergies No Known Allergies Measurements: Height: 170.18 cm Weight: 93.7 kg Blood Pressure: 137 mmHg / 82 mmHg BMI: 32.35 kg/m2 Procedures No Procedures Documented Immunizations No Immunizations Documented This Visit Final Med List: amiodarone (amiodarone 200 mg Tab) apixaban (Eliquis 5 mg oral tablet) By Mouth 2 times a day. celecoxib (CeleBREX 100 mg Cap) 1 Capsules By Mouth every day. citalopram (citalopram 10 mg Tab) By Mouth every day. ferrous sulfate (ferrous sulfate 325 mg oral enteric coated tablet) 1 Tablets By Mouth 2 times a day. finasteride (finasteride 5 mg Tab) 1 Tablets By Mouth every day. Refills: 3. levothyroxine (levothyroxine 75 mcg (0.075 mg) Tab) By Mouth every day. pantoprazole (Protonix 40 mg Tab-DR) 1 Tablets By Mouth 2 times a day. Refills: 3. simvastatin (simvastatin 20 mg Tab) 1 Tablets By Mouth once a day (at bedtime). tamsulosin (Flomax 0.4 mg Cap) 1 Capsules By Mouth every day. Refills: 3. valsartan (valsartan 40 mg Tab) 1 Tablets By Mouth every day. Care Team Members: Attending Physician: Yoselin MCNAIR DO Consulting Physician: Adebayo Mendoza MD Referring Physician: Follow up: Patient Education Information:[facility] Patient Summaryon [id number] Patient SummaryInpatient Patient Summary [place] [address] Patient Discharge Instructions PERSON INFORMATION Name: AYAD DE LA ROSA Date of : 1945 Current Date: 06/20/2024 11:13:08 PHYSICIANS Admitting Physician: Yoselin MCNAIR DO Primary Care Physician: Paulina Tyson MD PCP Comment: Discharge Diagnosis: 1:Acute ischemic stroke; 2:CKD (chronic kidney disease) stage 3, GFR 30-59 ml/min; 3:Deaf b/l needs sign language; 4:Chronic GERD; 5:Coronary atherosclerosis; 6:Hyperlipidemia; 7:Hypothyroidism; 8:Paroxysmal atrial fibrillation; 9:On deep vein thrombosis (DVT) prophylaxis Condition at Discharge: AYAD DE LA ROSA has been given the following list of follow-up instructions, prescriptions, and patient education materials: PATIENT FOLLOW-UP INFORMATION Diet: Discharge Activity: Discharge Restrictions: Wound Care Instructions: Remove Your Dressing In Days Call Your Doctor For: IF UNABLE TO CONTACT YOUR PHYSICIAN AND YOU FEEL IT IS AN EMERGENCY, GO TO THE NEAREST EMERGENCY ROOM OR CALL 911 Home Treatment: Devices/Equipment: None Special Services: Additional Instructions: Primary Care Physician to provide the following pending test results: Follow up: In the event that this physician does not participate in your insurance network, please consult with your insurance company to find a nearby participating provider. Comment: KATTY Joseph JAMES A, have received the attached patient education materials/instructions and have verbalized understanding: Patient Signature Date Clinican/Nurse Signature Date HERE ARE THE MEDICATION CHANGES THAT OCCURRED DURING YOUR HOSPITAL STAY Medications to Continue with No Changes Other Medications amiodarone (amiodarone 200 mg Tab) Last Dose: Next Dose: apixaban (Eliquis 5 mg oral tablet) By Mouth 2 times a day. Last Dose: Next Dose: celecoxib (CeleBREX 100 mg Cap) 1 Capsules By Mouth every day. Last Dose: Next Dose: citalopram (citalopram 10 mg Tab) By Mouth every day. Last Dose: Next Dose: ferrous sulfate (ferrous sulfate 325 mg oral enteric coated tablet) 1 Tablets By Mouth 2 times a day. Last Dose: Next Dose: finasteride (finasteride 5 mg Tab) 1 Tablets By Mouth every day. Refills: 3. Last Dose: Next Dose: levothyroxine (levothyroxine 75 mcg (0.075 mg) Tab) By Mouth every day. Last Dose: Next Dose: pantoprazole (Protonix 40 mg Tab-DR) 1 Tablets By Mouth 2 times a day. Refills: 3. Last Dose: Next Dose: simvastatin (simvastatin 20 mg Tab) 1 Tablets By Mouth once a day (at bedtime). Last Dose: Next Dose: tamsulosin (Flomax 0.4 mg Cap) 1 Capsules By Mouth every day. Refills: 3. Last Dose: Next Dose: valsartan (valsartan 40 mg Tab) 1 Tablets By Mouth every day. Last Dose: Next Dose: Comment: MEDICATION LIST PROVIDED FOR YOU IS A LIST OF YOUR CURRENT MEDICATIONS. PLEASE CARRY THIS WITH YOU AT ALL TIMES. amiodarone (amiodarone 200 mg Tab) apixaban (Eliquis 5 mg oral tablet) By Mouth 2 times a day. celecoxib (CeleBREX 100 mg Cap) 1 Capsules By Mouth every day. citalopram (citalopram 10 mg Tab) By Mouth every day. ferrous sulfate (ferrous sulfate 325 mg oral enteric coated tablet) 1 Tablets By Mouth 2 times a day. finasteride (finasteride 5 mg Tab) 1 Tablets By Mouth every day. Refills: 3. levothyroxine (levothyroxine 75 mcg (0.075 mg) Tab) By Mouth every day. pantoprazole (Protonix 40 mg Tab-DR) 1 Tablets By Mouth 2 times a day. Refills: 3. simvastatin (simvastatin 20 mg Tab) 1 Tablets By Mouth once a day (at bedtime). tamsulosin (Flomax 0.4 mg Cap) 1 Capsules By Mouth every day. Refills: 3. valsartan (valsartan 40 mg Tab) 1 Tablets By Mouth every day. Pharmacy Information: Comment: PATIENT EDUCATION INFORMATION Instructions: Medication Leaflets: You may receive a survey from [employer] asking you to rate your care experience. Your feedback is important and will help us understand what we do well and how we can improve the quality of care we provide to you, your loved ones and our community. It???s an honor to serve you. Thank [facility] HospitalInterdisciplinary Note - Case Manageron 06-20-2024 Interdisciplinary Note - Case ManagerInterdisciplinary Note - Abrasive Wheel Molder Patient is out of room for MRI/MRA at this time. NO family present. PT/OT= SNF. Contact informationprovided. CRM will return to discuss DC plans CRM returned to pt room, pt resting in bed, at bedside. Both patient and are deaf and communicted thorugh sign language. CRM wrote conversation and used sign language to discuss with patient. PCP verified and insurance information reviewed and DME discussed. PT is from home with wifeand she will transport at DC Discussed therapy evals and pt and agreeable to SNF at [facility] as preference. Referral to resource center, aware of anticipated DC 11/ Declines any further concerns or needs. CRM followingNormal [facility] HospitalComment on above:Result Comment: Electronically Signed By: Jose DAILEY, Mairza\.yessi\Date and Time Signed: 06/20/24 13:05 EDT Interdisciplinary Note - OTon [id number] Note - OT Interdisciplinary Note - OT OT [facility] six clicks score = SNF vs inpatient rehab. Patient requires MIN A w/ transfers and dynamic standing adls. Patient requires mod A w/ 2 handled adl tasks d/t decreased AROM/proprioception/strength/sensation in LUE, most notably in wrist/hand. Patient also reports dizziness w/ all transitional movements which is limiting dynamic standing balance w/ self care. Inpatient OT services to follow daily to progress w/ functional skills and LUE abilities.NormalAultman Orrville HospitalInterdisciplinary Note - Speech Languageon 06-20-2024 Interdisciplinary Note - Speech LanguageInterdisciplinary Note - Speech Language ST 06/20/24: MBS completed, recommended following overt s/s aspiration during BSE. pt to ER with left facial droop and left sided weakness. pt is deaf, reports this has been for years. admitted for stroke work up. PMH: CKD, deaf, GERD, HLD, afib. OME completed - left facial droop. tongue deviation to left. pt agreeable to trials puree, soft solid/mixed textures, regular, thin liquids, and mildly thick liquids. pt with adequate oral clearance of puree via spoon. Pt with mild lingual residue on left withsoft solid. Clears with additional time/swallow. Pt able to clear regular textures with additional time. Pt with decreased epiglottic inversion. premature spillage to vallecula with puree, fruit, thin, and mildly to pyriform. pt with deep penetration and suspected trace aspiration with thin liquids. significant cough noted. Pt with deep penetration noted with consecutive swallows of mildly thick.penetration not noted with small, single drinks. ST recommending regular textures/mildly thick liquids. Small, single bites/sips. Alternate bites/sips. No straws. Medications whole in puree. Seated upright, feed only when awake/alert. ensure oral clearance. ST to sisal picker for pharyngeal strengthening and diet tolerance. Nursing aware - conveyed information to with use of keyboard instrument tuner.NormalAultman Orrville HospitalLipid Panelon [id number] [Mass/Vol]191 mg/dL Snpffq261-382GgwelwAultman Orrville HospitalComment on above:Performed By: #### [id number] #### [facility] [address] [place], [place] [address]Jnltfakmwlw in HDL [Mass/Vol]41 mg/dLInvalid Interpretation CodeAultman Orrville HospitalComment on above:Result Comment: '>= 60 LOW RISK' '<= 40 HIGH RISK'Performed By: #### [id number] #### [facility] [address], [place] [address]Ueehzwfkjok in LDL [Mass/Vol]134 mg/dLHigh<=129A[facility] Orrville HospitalComment on above:Performed By: #### [id number] #### [facility] [address], [place] [address]Dybeiagoekv in VLDL [Mass/Vol]33 mg/dLNormal7-40[facility] HospitalComment on above:Performed By: #### [id number] #### [facility] [address], [place] [address]Iyrweageuslg [Mass/Vol]164 mg/dLHigh<=149A[facility] Orrville HospitalComment on above:Performed By: #### [id number] #### [facility] [address], [place] [address]HCSGE OTHER TESTSOrdered By: Gabriela Bowen on 18-81-2045Hsoxuc blood panel (Stl)Negative (06/20/24 6:04 PM)NormalNegativeMEDICAL C[facility] Man SeroMRI Brain w/o Contraston 06-20-2024 MRI Brain w/o ContrastExam Date/Time: 06/20/2024 10:08 EDT Reason for Exam: Stroke Report IMPRESSION: ACUTE/SUBACUTE ISCHEMIA OF THE RIGHT FRONTAL AND RIGHT PARIETAL LOBES. 1.5 CM AREA OF CURVILINEAR SIGNAL ABNORMALITY OF THE CORTEX OF THE POSTERIOR RIGHT FRONTAL LOBE DETAILED IS NONSPECIFIC BUT MOST CONCERNING FOR POSSIBLE INTERVAL DEVELOPMENT OF PARENCHYMAL HEMORRHAGE. THIS IS ASSESSED WITH DR. HALL BY DR. RODRIGUEZ AT APPROXIMATELY 10:45 AM ON 06/20/2024. EXAM: MRI of the brain without contrast History: Left-sided weakness. Left-sided facial droop. Technique: Multiplanar multisequence MRI of the brain was performed without contrast. Comparison: CT brain 06/19/2024 Findings: There are scattered areas of cortical diffusion restriction of the right frontal lobe and an 8 mm focus of cortical diffusion restriction of the right parietal lobe. Associated parenchymal edema. Areas of hyperintense T2/FLAIR signal within the bilateral supratentorial white matter are nonspecific but are most likely due to chronic small vessel ischemic changes in a patient of this age. Prominence of the sulci and ventricles compatible with mild generalized parenchymal volume loss. No acute hemorrhage, mass, mass effect, midline shift, or abnormal extra-axial fluid collection. Midline structures are within normal limits. The posterior fossa is within normal limits. There is a 1.5 cm area of curvilinear cortical susceptibility artifact of the posterior right frontal lobe in the area of ischemia with associated hyperintense T2/isointense T1 signal that may represent developing cortical laminar necrosis however interval development of intraparenchymal hemorrhage is of greatest concern given the patient is on Eliquis. The major intracranial vascular flow voids are maintained. Cranial nerves 7/8 complexes appear grossly unremarkable. The visualized paranasal sinuses and bilateral mastoid air cells are clear. Report Ordering Provider: Yoselin MCNAIR FINAL REPORT Dictated: 06/20/2024 10:44 am Tab Rodriguez DO Signed (Electronic Signature): 06/20/2024 10:44 am Signed by: Tab Rodriguez DO Transcribed by: TATY Technologist: PRITESH Technical Comments NoneNormalFishJohns Hopkins Bayview Medical CenterNonvisit Note - SLPon 59-85-9384Cbulsstf Note - SLPNonvisit Note - LOGISTICS ASSOCIATE ST 06/20/24: pt rescheduled appt from 715 to 930. Pt then calls the reschedule due to conflict.NormalAultman Orrville HospitalReference Laboratory Testing Ordered By: Yvette DomainUser on 12-84-8692Cdqbwh Ab RPR Ql (S)Non-Reactive Invalid Interpretation CodeNon ReactiveMEDICAL CENTER OF [facility] SendOutsSSComment on above:Result Comment: Performed at: [facility] [address] [id number] PhD Regine Rocha Oclt Bldon 77-61-7089Nhkyfo blood panel (Stl)NegativeNormalNegativeAultman Orrville HospitalComment on above:Performed By: #### [id number] #### [facility] [address], [place] [address]XIJ With T4fr Reflexon 23-87-0993LOX Qn1.68 m[IU]/LNormal 0.34-5.60[facility] HospitalComment on above:Performed By: #### [id number] #### [facility] [address], [place] [address]Odbmtfkmsj 02-31-6416Dedfqnpr HS28.60 pg/cZTzdpbe04.90-38.40 [facility]ville HospitalComment on above:Result Comment: The 95% CI (Confidence Interval) PPV (Positive Predictive Value) for myocardial infarction in females is 38 pg/mL, in males 51 pg/mL. The results should be used in conjunction with clinical conditions of myocardial infarction. (Access High Sensitivity Troponin I Instructions For Use, Skip Corrine, March 2018)Performed By: #### [id number] #### [facility] [address], [place] [address]JU with Cult Rflxon 68-35-5862Kpvqieamq Ql (U)NegativeNormal NegativeAultman Orrville HospitalComment on above:Performed By: #### [id number] #### [facility] [address], [place] [address]Giiuuzu (U)ClearNormalClearAultman Orrville HospitalComment on above:Performed By: #### [id number] #### [facility] [address] [place] [address], [place] [address]Rbhbx (U)YellowNormalYellowAultman Orrville HospitalComment on above:Result Comment: Microscopic readings are only performed on those samples that meet specific criteria set forth by [facility].Performed By: #### [id number] #### [facility] [address], [place] [address]Dgvillj Ql (U)NegativeNormalNegGeorgetown Behavioral Hospital Comment on above:Performed By: #### [id number] #### [facility] [address] [place] [address], [place] [address]Pmmndsuggh Auto test strip (U) [Mass/Vol]NegativeNormalNegative [facility] HospitalComment on above:Performed By: #### [id number] #### [facility] [address], [place] [address]Mnpbbok Auto test strip Ql (U)NegativeNormalNegativeAultman Orrville HospitalComment on above:Performed By: #### [id number] #### [facility] [address], [place] [address]Ixtdmgfuq esterase Auto test strip Ql (U)NegativeNormalNegative [facility] HospitalComment on above:Performed By: #### [id number] #### [facility] [address], [place] [address]Jkespod Auto test strip Ql (U)NegativeNormalNegativeAultman Orrville HospitalComment on above:Performed By: #### [id number] #### [facility] [address], [place] [address]cM (U)5.5 [pH]Invalid Interpretation Code5.0-9.0[facility] HospitalComment on above:Performed By: #### [id number] #### [facility] [address] [place] [address], [place] [address]Sggfncy Ql (U)TraceAbnormalNegGeorgetown Behavioral Hospital Comment on above:Performed By: #### [id number] #### [facility] [address], [place] [address]Knbizocy gravity (U) [Rel density]>1.032Uzilpx8.005-1.030[facility] HospitalComment on above:Performed By: #### [id number] #### [facility] [address], [place] [address]Siquercwkybb (U) [Mass/Vol]NegativeNormalNegativeAultman Orrville HospitalComment on above:Performed By: #### [id number] #### [facility] [address], [place] [address]MADLAYGQUFBlkxjck By: Sheri Ricketts on 21-97-3353Jsnykahci Ql (U)NegativeNormalNegativemg/dLMEDICAL CENTER [facility] [place] [facility] UA Auto SSClarity (U)Clear (06/20/24 2:49 AM)NormalClearFBEAVER COUNTY [facility] UA Auto SSColor (U)Yellow 1 (06/20/24 2:49 AM)NormalYellowMEDICAL CENTER OF [facility]OUTHE[facility] [place] [facility] UA Auto SSComment on above:Interpretive Data: Microscopic readings are only performed on those samples that meet specific criteria set forth by [facility].Glucose Ql (U) NegativeNormalNegativemg/dLMEDICAL CENTER OF [facility] UA Auto SSHemoglobin Auto test strip (U) [Mass/Vol]Negative (06/20/24 2:49 AM)NormalNegativeMEDICAL CENTER [facility] UA Auto SSKetones Auto test strip Ql (U) NegativeNormalNegativemg/dLMEDICAL CENTER OF [facility] UA Auto SSLeukocyte esterase Auto test strip Ql (U)Negative (06/20/24 2:49 AM)NormalNegativeMEDICAL CENTER [facility] UA Auto SSNitrite Auto test strip Ql (U) NegativeNormalNegativemg/dLMEDICAL CENTER OF [facility] UA Auto SSpH (U)5.5 *NA* (06/20/24 2:49 AM)Invalid Interpretation Code5.0 - 9.0[facility] UA Auto SSProtein Ql (U)Trace mg/dLInvalid Interpretation CodeNegativemg/dLMEDICAL CENTER OF [facility] UA Auto SSSpecific gravity (U) [Rel density]>1.050 (06/20/24 2:49 AM)Normal1.005 - 1.030[facility] UA Auto SSUrobilinogen (U) [Mass/Vol] NegativeNormalNegativemg/dLMEDICAL CENTER OF [facility] [place] [facility] UA Auto SSURINALYSISOrdered By: Tristan Hyde on 67-99-0466OV Spec DescClean Catch (06/20/24 2:49 AM)NormalMEDICAL CENTER OF [facility] UA Auto SS vit B12on 40-16-8362Nsmxnjsgl (Vitamin B12) [Mass/Vol] 372 pg/xSMmklhr54-4323NamtwgAultman Orrville HospitalComment on above:Performed By: #### [id number] ####[facility] [address] [place], [place] [address]RF Adult Swallowing Function w/ Videoon 03-73-8871BZ Adult Swallowing Function w/ VideoExam Date/Time: 06/20/2024 09:44 EDT Reason for Exam: Dysphagia Report IMPRESSION: TRACHEAL ASPIRATION OF THIN LIQUID CONSISTENCY BARIUM. PLEASE SEE DEDICATED SPEECH PATHOLOGY REPORT FOR FURTHER DETAILS. REASON FOR EXAM: Dysphagia TECHNIQUE: A modified barium swallow study was performed utilizing fluoroscopy in conjunction with speech pathology. Various consistencies of barium were administered. Air kerma mGy: 14.9; fluoroscopy time: 3.2 minutes; dose area product: 344.48 uGym2 All fluoroscopic video series were saved. FINDINGS: Soto cracker, soft food,. Food, nectar liquid, and thin liquid consistency barium was demonstrated. Premature spill occurred with soft food and pureed food consistency barium. Laryngeal penetration occurred with nectar liquid consistency barium. Tracheal aspiration occurred with thin liquid consistency barium. Ordering Provider: Yoselin MCNAIR FINAL REPORT Dictated: 06/20/2024 1:08 pm Tab Rodriguez DO Signed (Electronic Signature): 06/20/2024 1:08 pm Signed by: Tab Rodriguez DO Transcribed by: TATY Technologist: EDDIE Technical Comments Radiation Dose: taylor Dodd in mGy = 14.90 DAP = 344.48NormalAultman Orrville HospitalXR Chest Single Viewon [id number] Chest Single ViewExam Date/Time: 06/19/2024 22:48 EDT Reason for Exam: Chest pain Report IMPRESSION: No acute findings by portable radiography. EXAMINATION/TECHNIQUE: XR Chest Single View HISTORY: Facial droop. Left-sided weakness. COMPARISON: 09/19/2023. RESULT: Shallow inspiration. No focal consolidation. No large pleural effusion. No pneumothorax. Stable cardiomediastinal silhouette. No acute osseous findings. Hiatal hernia. Ordering Provider: Tristan Hyde FINAL REPORT Dictated: 06/20/2024 10:37 am Bernard Calles MD Signed (Electronic Signature): 06/20/2024 10:37 am Signed by: Bernard Calles MD Transcribed by: TATY Technologist: BETTY Technical Comments Radiation Dose: Ka,r in mGy = . DAP = .[facility] HospitaleGFRon 64-86-3915bBQK81 mL/min/1.73 m2 Low>=59A[facility] Orrville HospitalComment on above:Performed By: #### [id number] #### [facility] [address] [place] [address]WU Draw & Holdon 36-74-2961XQ D&HSample drawn for Blood Ba [facility] HospitalComment on above:Performed By: #### [id number] #### [facility] [address] [place] [address]QDC w/ Auto Diffon 81-94-6016Stejgonqz/100 WBC (Bld)0.6 %Normal 0.0-2.0[facility]rville HospitalComment on above:Performed By: #### [id number] #### [facility] [address] [place] [address]Byydqtcot/Leukocytes Auto (Bld) [Pure # fraction]0.1 E9/LNormal 0.0-0.2FRegency Hospital CompanyComment on above:Performed By: #### [id number] #### [facility] [address] [place] [address]Cqffftzmdph (Bld) [#/Vol]0.3 E9/LNormal0.0-0.5[facility] Medical CenterComment on above:Performed By: #### [id number] #### [facility] [address], [place] [address]Vfzcphrxflt/100 WBC (Bld)3.5 %Normal0.0-8.0[facility]rville HospitalComment on above:Performed By: #### [id number] #### [facility] [address] [place] [address]Wypidmvrekw distribution width (RBC) [Ratio]13.9 %Normal 10.9-14.2FRegency Hospital CompanyComment on above:Performed By: #### [id number] #### [facility] [address] [place] [address]Qlndcwwses (Bld) [Volume fraction]43.8 %Uvmoye49.7-49.0[facility]rville HospitalComment on above:Performed By: #### [id number] #### [facility] [address] [place] [address]Fzzvmapagi (Bld) [Mass/Vol]15.4 g/iEUeqelw84.5-17.5FRegency Hospital CompanyComment on above:Performed By: #### [id number] #### [facility] [address] [place] [address]Xgmpwvlrjco (Bld) [#/Vol]2.6 E9/LNormal1.0-4.0[facility] HospitalComment on above:Performed By: #### [id number] #### [facility] [address] [place] [address]Ydimeevcbkg/100 WBC (Bld)32.0 %Rorkrz78.0-50.0[facility]rville HospitalComment on above:Performed By: #### [id number] #### [facility] [address] [place] [address]OLR (RBC) [Entitic mass]31.4 kyFpcwdp08.0-34.0[facility] HospitalComment on above:Performed By: #### [id number] #### [facility] [address] [place] [address]PZEC (RBC) [Mass/Vol]35.2 g/aDOupwaf20.4-36.0[facility] HospitalComment on above:Performed By: #### [id number] #### [facility] [address] [place] [address]BWV (RBC) [Entitic vol]89.1 lAJfcduv10.0-100.0[facility] HospitalComment on above:Performed By: #### [id number] #### [facility] [address] [place] [address]Agxirxtme (Bld) [#/Vol]0.8 E9/LNormal0.2-1.0[facility] HospitalComment on above:Performed By: #### [id number] #### [facility] [address] [place] [address]Krmqijdlvbf (Bld) [#/Vol]4.5 E9/LNormal2.0-7.5FRegency Hospital CompanyComment on above:Performed By: #### [id number] #### [facility] [address] [place] [address]Cxijpkioqqm/100 WBC (Bld)54.8 %Wnigtt19.0-75.0[facility] HospitalComment on above:Performed By: #### [id number] #### [facility] [address] [place] [address]Uydbydds956.0 E9/JIhlrey577.0-500.0[facility] Comment on above:Performed By: #### [id number] #### [facility] [address] [place] [address]Lsuyisnm mean volume (Bld) [Entitic vol]7.9 fLNormal6.4-10.8 [facility]rville HospitalComment on above:Performed By: #### [id number] #### [facility] [address] [place] [address]KSF (Bld) [#/Vol]4.9 E12/LNormal4.3-5.9[facility] HospitalComment on above:Performed By: #### [id number] #### [facility] [address] [place], [place] [address]XYJ corrected for nucl RBC Auto (Bld) [#/Vol]8.2 E9/LNormal 4.0-11.0[facility] HospitalComment on above:Performed By: #### [id number] #### [facility] [address], [place] [address]OEOUCSUVCEsljguy By: SYSTEM SYSTEM on 33-10-8492Trsbqww [Mass/Vol]4.0 g/dLNormal3.3 - 5.0 gm/dLRemisol ChemAlbumin/Globulin [Mass ratio] 1.3 {ratio}Normal1.1 - 2.2Remisol ChemALP [Catalytic activity/Vol]62 [iU]/d Ihuyxp64 - 98 Int._Unit/LRemisol ChemALT No additional P-5'-P [Catalytic activity/Vol]21 [iU]/dNormal6 - 46 Int._Unit/LRemisol ChemAST [Catalytic activity/Vol]27 [iU]/dNormal5 - 43 Int._Unit/LRemisol ChemBilirubin [Mass/Vol] 0.5 mg/dLNormal0.0 - 1.1 mg/dLRemisol ChemGlobulin (S) [Mass/Vol]3.0 g/dLNormal 1.4 - 4.0 gm/dLRemisol ChemProtein [Mass/Vol]7.0 g/dLNormal6.0 - 7.8 gm/dL Remisol ChemTroponin HS17.20 pg/wXWnejsh42.90 - 38.40 pg/mLRemisol ChemComment on above:Interpretive Data: The 95% CI (Confidence Interval) PPV (Positive Predictive Value) for myocardial infarction in females is 38 pg/mL, in males 51 pg/mL. The results should be used in conjunction withclinical conditions of myocardial infarction. (Access High Sensitivity Troponin I Instructions For Use, Skip [place], March 2018)CMPon [id number] [Mass/Vol]4.0 g/dLNormal3.3-5.0[facility] Orrville HospitalComment on above:Performed By: #### [id number] #### [facility] [address], [place] [address]Zdnbhjj/Globulin (S) [Mass conc ratio]1.3Wbmpmj7.1-2.2FRegency Hospital CompanyComment on above:Performed By: #### [id number] #### [facility] [address], [place] [address]IRB [Catalytic activity/Vol]62 Int._Unit/GDefqwg83-19NvidscAultman Orrville HospitalComment on above:Performed By: #### [id number] #### [facility] [address], [place] [address]TLD No additional P-5'-P [Catalytic activity/Vol]21 Int._Unit/L Normal6-46[facility] HospitalComment on above:Performed By: #### [id number] #### [facility] [address], [place] [address]Xeomc gap [Moles/Vol]13 mmol/LNormal6-16[facility]rville HospitalComment on above:Performed By: #### [id number] #### [facility] [address], [place] [address]LYF [Catalytic activity/Vol]27 Int._Unit/LNormal5-43[facility]rville HospitalComment on above:Performed By: #### [id number] #### [facility] [address], [place] [address]Sblpoikqt [Mass/Vol]0.5 mg/dLNormal0.0-1.1FRegency Hospital CompanyComment on above:Performed By: #### [id number] #### [facility] [address], [place] [address]Rehdxkz [Mass/Vol]8.9 mg/dLNormal8.9-11.1FRegency Hospital CompanyComment on above:Performed By: #### [id number] #### [facility] [address], [place] [address]Unrrqpvw [Moles/Vol]107 mmol/WOelrur837-331Hiyaby Apache Medical CenterComment on above:Performed By: #### [id number] #### [facility] [address], [place] [address]CI2 [Moles/Vol]23 mmol/SCgemkq50-71IenszaAultman Orrville Hospital Comment on above:Performed By: #### [id number] #### [facility] [address], [place] [address]Lzmxwqlxqz [Mass/Vol]1.9 mg/dLHigh0.5-1.3FRegency Hospital CompanyComment on above:Performed By: #### [id number] #### [facility] [address], [place] [address]Pvhyjazc (S) [Mass/Vol]3.0 g/dLNormal1.4-4.0[facility] Orrville HospitalComment on above:Performed By: #### [id number] #### [facility] [address] [place] [address]Kvahubr [Mass/Vol]131 mg/sDLujqvg90-578BqdwodAultman Orrville HospitalComment on above:Performed By: #### [id number] #### [facility] [address], [place] [address]Vxrnxnlnx [Moles/Vol]4.2 mmol/LNormal3.5-5.3FRegency Hospital CompanyComment on above:Performed By: #### [id number] #### [facility] [address], [place] [address]Tfiskya [Mass/Vol]7.0 g/dLNormal6.0-7.8[facility] HospitalComment on above:Performed By: #### [id number] #### [facility] [address], [place] [address]Caywqr [Moles/Vol]139 mmol/APsacit697-790TvdjmoAultman Orrville HospitalComment on above:Performed By: #### [id number] #### [facility] [address], [place] [address]Nrmt nitrogen [Mass/Vol]22 mg/dLHigh5-21[facility] Orrville HospitalComment on above:Performed By: #### [id number] #### [facility] [address], [place] [address]Eled nitrogen/Creatinine [Mass ratio]12 No GdopxIayppf55-75 [facility]rville HospitalComment on above:Performed By: #### [id number] #### [facility] [address], [place] [address]BANQMXUBJRTTvxuxfv By: Angie Sheriff on [id number] Coag (PPP) [Time]33.5 iZhdikp73.1 - 36.5 second(s)[facility] Auto CoagComment on above: Interpretive Data: Parameter 15 days - 4 weeks 1 - 5 months 6 - 11 months 1 - 5 years 6 - 10 years 11 - 17 years PTT Mean: 35.4 (27.6-45.6) Mean: 33.5 (24.8-40.7) Mean: 32.4 (25.1-40.7) Mean: 31.6 (24.0-39.2) Mean: 31.6 (26.9-38.7) Mean: 31.0 (24.6-38.4) Pediatric Reference ranges were obtained from a study by Mikey Santiago et al. prepared from 1437 samples obtained at 7 different centers using the same coagulation reagent and instrumentation as [facility]. Currently there are no coagulation studies available worldwide for children to 14 days, andno normal ranges. Heparin therapeutic range (represented by Anti-Factor Xa activity of 0.2 - 0.4 U/mL) corresponds to PTT of 56.6 - 109.0 sec.INR Coag (PPP) [Relative time]1.39 {INR}Invalid Interpretation CodeMEDICAL CENTER OF [facility] [place] [facility] Auto CoagComment on above:Interpretive Data: INR results are specifically intended to assess patients stabilized on long-term Anticoagulation therapy suggested INR s Less Intensive Anticoagulation 2.0 3.0 Conventional Range 3.0 4.5PT Coag (PPP) [Time]15.6 sHigh9.4 - 12.5 second(s)[facility] Auto CoagComment on above:Interpretive Data: 15 days - 4 weeks 1 - 5 months 6 -11 months 1-5 years 6-10 years 11 -17 years Mean: 11.2 (9.5-12.6) Mean: 11.0 (9.7-12.8) Mean: 11.0 (9.8-13.0) Mean: 11.3 (9.9-13.4) Mean: 11.7 (10.0-14.6) Mean: 11.8 (10.0 - 14.1) Pediatric Reference ranges were obtained from a study by paty Carrillo al. prepared from 1437 samples obtained at 7 different centers using the same coagulation reagent and instrumentation as [facility]. Currently there are no coagulation studies available worldwide for children to 14 days, andno normal ranges.ED Note-Physicianon [id number] Note-PhysicianED Note-Physician Basic Information Time Seen: Mary Ellen ARIAS Tristan Nakul 06/19/2024 21:06 Chief Complaint pt to ER c/o L facial droop and L side weakness. LKW 1730. Pt also c/o dizziness. Pt takes Eliquis.Unable to assess speech d/t pt being deaf. History of Present Illness Patient is a 78-year-old male with past medical history of hypertension, hyperlipidemia, atrial fibrillation on Eliquis presenting to the ED for evaluation of strokelike symptoms. Patient's last known well was 1730 he went down to take a nap and woke up with left-sided facial droop, left-sided weakn ess. Patient is deaf which limits some history. EMS states noted he was normal before his nap at 1730 and woke up with the symptoms. Patient is compliant with his Eliquis. Review of Systems Limited due to patient being deaf Physical Exam Vitals & Measurements T: 36.6 ???C(Oral) HR: 72(Monitored) RR: 16 BP: 144/83 SpO2: 97% HT: 169 cm WT: 90.8 kg BMI: 31.79 General: Well developed, non toxic appearing, no acute distress HEENT: Head atraumatic, Mucosa moist, hearing grossly normal Neck: No JVD, tracheal deviation Cardiac: Regular rate, rhythm, no murmurs, or gallops, 2+ radial pulses Respiratory: Lungs clear to auscultation B/L, normal respiratory effort Abdomen: Soft non tender, no rebound or guarding, no peritoneal signs Extremities: No edema noted in the LE B/L, no tenderness to palpation Neurologic: Alert and oriented left facial droop, left arm drift, left leg drift, patient is aphasic however normal due to hearing impairment, NIH of 13 Skin: No rashes or lesions Psych: Appropriate mood and behavior Medical Decision Making MEDICAL DECISION MAKING Number and Complexity of Problems Differential Diagnosis: [] [facility] Data External documents reviewed: [] My EKG interpretation: [] My CT interpretation: [] My X-ray interpretation: [] My Ultrasound interpretation: [] Decision rules/scores evaluated: [] Discussed with: [] Treatment and Disposition ED Course: Patient is a 78-year-old male presenting to the ED for evaluation of a stroke alert. On examination patient has an NIH of 13 however a large majority of the NIH scale is secondary to his deafness with being aphasic, nonverbal. Patient's only significant deficits are left facial droop, left arm weakness and left leg weakness. Patient immediately taken to CT, he is not a tenecteplase candidate due to his Eliquis. Last known well greater than [address] head CTAs are obtained showed no acute findings, no large vessel occlusions. I discussed the findings with Dr. Daley who reviewed the CTs did not show any large vessel occlusion. He recommends aspirin and admission here for further workup. Discussed findings with patient and via language interpreter they are understanding and agreement with this plan. While in the ED patient's left facial weakness did seem to improve. Discussed the case with the hospitalist accept the patient for admission. Patient is given rectal aspirin in the ED for treatment of his symptoms. Shared decision making: [] Code status: [] CC time: 36 minutes Due to a high probability of clinically significant, life threatening deterioration, the patient required my highest level of preparedness to intervene emergently and I personally spent this criticalcare time directly and personally managing the patient. This critical care time included obtaining a history; examining the patient; pulse oximetry; ordering and review of studies; arranging urgent treatment with development of a management plan; evaluation of patient's response to treatment; frequent reassessment; and, discussions with other providers. This critical care time was performed to assess and manage the high probability of imminent, life-threatening deterioration that could result in patient deterioration. It was exclusive of separately billable procedures and treating other patients and teaching time. Assessment/Plan Acute ischemic stroke (I63.9: Cerebral infarction, unspecified) Orders: aspirin, 300 mg = 1 supp, Supp, Rectal, Once, Stop date 06/19/24 21:55:00 EDT, STAT, Start date 06/19/24 21:55:00 EDT, 06/19/24 21:55:00 EDT ondansetron, 4 mg = 2 mL, Injection, IV Push, Once, Stop date 06/19/24 21:31:00 EDT, STAT, Start date 06/19/24 21:31:00 EDT, 06/19/24 21:31:00 EDT BB Draw & Hold Cardiac Monitoring CBC w/ Auto Diff Communication Order Communication Order Comprehensive Metabolic Panel Consult to Tele-Neurology Continuous Pulse Oximetry CT Head or Brain w/o Contrast CTA Head CTA Neck Dysphagia Screen ED Physician consult Hospitalist for continued care eGFR Neurological Assessment NPO Diet Oxygen Protocol PT & PTT Rapid Response Form Routine Capillary Glucose POC Stroke Quality Measures Troponin 0 Hr. UA with Cult Rflx XR Chest Single View Medications Administered Given aspirin 300 mg Supp, 300 mg, Rectal Zofran 4 mg/2 mL Injectio (more content not included)...[facility] HospitalComment on above:Result Comment: Electronically Signed By: Tristan Hyde DO\angelica\Date and Time Signed: 06/19/24 23:13 EDTHEMATOLOGYOrdered By: SYSTEM SYSTEM on 39-39-1139Bbdccmuue/100 WBC (Bld)0.6 %Normal0.0 - 2.0 %Remisol HemeBasophils/Leukocytes Auto (Bld) [Pure # fraction]0.1 E9/LNormal0.0 - 0.2 E9/LRemisol HemeEosinophils (Bld) [#/Vol]0.3 E9/LNormal0.0 - 0.5 E9/LRemisol HemeEosinophils/100 WBC (Bld)3.5 %Normal0.0 - 8.0 %Remisol HemeErythrocyte distribution width (RBC) [Ratio]13.9 %Wexfag82.9 - 14.2 %Remisol HemeHematocrit (Bld) [Volume fraction]43.8 %Vxtkhx48.7 - 49.0 %Remisol HemeHemoglobin (Bld) [Mass/Vol]15.4 g/iMIwovlm79.5 - 17.5 gm/dLRemisol HemeLymphocytes (Bld) [#/Vol] 2.6 E9/LNormal1.0 - 4.0 E9/LRemisol HemeLymphocytes/100 WBC (Bld)32.0 %Normal 14.0 - 50.0 %Remisol HemeMCH (RBC) [Entitic mass]31.4 lzXjzehn05.0 - 34.0 pg Remisol HemeMCHC (RBC) [Mass/Vol]35.2 g/nANvfmmi54.4 - 36.0 gm/dLRemisol HemeMCV (RBC) [Entitic vol]89.1 rOEufddm83.0 - 100.0 fLRemisol HemeMonocytes (Bld) [#/Vol]0.8 E9/LNormal0.2 - 1.0 E9/LRemisol HemeMonocytes/100 WBC (Bld)9.1 % Normal4.0 - 14.0 %Remisol HemeNeutrophils (Bld) [#/Vol]4.5 E9/LNormal2.0 - 7.5 E9/LRemisol HemeNeutrophils/100 WBC (Bld)54.8 %Qhyqkt58.0 - 75.0 %Remisol Heme Qyxblcrx945.0 E9/CJcmnvb402.0 - 500.0 E9/LRemisol HemePlatelet mean volume (Bld) [Entitic vol]7.9 fLNormal6.4 - 10.8 fLRemisol HemeRBC (Bld) [#/Vol]4.9 E12/L Normal4.3 - 5.9 E12/LRemisol HemeWBC corrected for nucl RBC Auto (Bld) [#/Vol] 8.2 E9/LNormal4.0 - 11.0 E9/LRemisol HemePT & PTTon 39-22-0456dLWJ Coag (PPP) [Time]33.5 second(s)Gjeovs87.1-36.5FRegency Hospital CompanyComment on above: Result Comment: Parameter 15 days - 4 weeks 1 - 5 months 6 - 11 months 1 - 5 years 6 - 10 years 11 - 17 years PTT Mean: 35.4 (27.6-45.6) Mean: 33.5 (24.8-40.7) Mean: 32.4 (25.1-40.7) Mean: 31.6 (24.0-39.2) Mean: 31.6 (26.9-38.7) Mean: 31.0 (24.6-38.4) Pediatric Reference ranges were obtained from a study by Mikey Santiago et al. prepared from 1437 samples obtained at 7 different centers using the same coagulation reagent and instrumentation as [facility]. Currently there are no coagulation studies available worldwide for children to 14 days, andno normal ranges. Heparin therapeutic range (represented by Anti-Factor Xa activity of 0.2 - 0.4 U/mL) corresponds to PTT of 56.6 - 109.0 sec.Performed By: #### [id number] #### [facility] [address], [place] [address]QBQ Coag (PPP) [Relative time]1.39 {INR}Invalid Interpretation CodeOseier University Of Maryland Medical CenterComment on above:Result Comment: INR results are specifically intended to assess patients stabilized on long-term Anticoagulation therapy suggested INR???s ???Less Intensive Anticoagulation??? 2.0 ??? 3.0 Conventional Range 3.0 ??? 4.5Performed By: #### [id number] #### [facility] [address], [place] [address]LS Coag (PPP) [Time]15.6 second(s)High9.4-12.5FRegency Hospital CompanyComment on above:Result Comment: 15 days - 4 weeks 1 - 5 months 6 -11 months 1-5 years 6-10 years 11 -17 years Mean: 11.2 (9.5-12.6) Mean: 11.0 (9.7-12.8) Mean: 11.0 (9.8-13.0) Mean: 11.3 (9.9-13.4) Mean: 11.7 (10.0-14.6) Mean: 11.8 (10.0 - 14.1) Pediatric Reference ranges were obtained from a study by Mikey Santiago et al. prepared from 1437 samples obtained at 7 different centers using the same coagulation reagent and instrumentation as [facility]. Currently there are no coagulation studies available worldwide for children to 14 days, andno normal ranges.Performed By: #### [id number] #### [facility] [address], [place] [address]Rts-Dddigoo Noteon [id number]-Arrival NotePre-Arrival Note Pre-Arrival Summary Name: , NCANDRY Current Date: 06/19/2024 21:05:13 EDT Gender: Male Date of : Age: 86 Pre-Arrival Type: EMS ETA: 06/19/2024 21:20:00 EDT Primary Care Physician: Presenting Problem: Stroke Pre-Arrival User: Renetta Johnson RN Referring Source: Location: [place] Completion Date/Time: 06/19/2024 20:50:00 [facility] Emergency Department Pre-Hospital Report Form Vital Signs: BP 127/86 HR 86 afib Pre-Hospital Report: FSBS 143 Treatment in Route: Response to Treatment: Misc. Issues:NormalAultman Orrville HospitalTroponin 0 Hr.on 06-19-2024 Troponin HS17.20 pg/rKWhescl02.90-38.40[facility]rville HospitalComment on above:Result Comment: The 95% CI (Confidence Interval) PPV (Positive Predictive Value) for myocardial infarction in females is 38 pg/mL, in males 51 pg/mL. The results should be used in conjunction with clinical conditions of myocardial infarction. (Access High Sensitivity Troponin I Instructions For Use, Skip [place], March 2018)Performed By: #### [id number] #### [facility] [address], [place] [address]QH with Cult Rflxon [id number] of Urine collection method Clean CatchNormalAlex [facility] Of Maryland Medical CenterComment on above:Performed By: #### [id number] #### [facility] [address] [place], [place] [address]sCONxn 27-68-3540vLHA89 mL/min/1.73 m2Low>=59[facility] CenterComment on above:Performed By: #### [id number] #### [facility] [address] [place], [place] [address]ZB WATCHMAN FULL CONTRASTon [id number] WATCHMAN FULL CONTRAST Interpreted By: Dylan Shay, STUDY: CT WATCHMAN FULL CONTRAST; 06/11/2024 11:30 am INDICATION: Signs/Symptoms:A-fib, Post Watchman. COMPARISON: CT angiogram 02/09/2024 ACCESSION NUMBER(S): [id number] ORDERING CLINICIAN: ADEBAYO SANTIAGO TECHNIQUE: Using multi detector CT technology,axial imaging with prospective gating was performed of the chest following the intravenous administration of 70 ML Omnipaque 350. For optimization of anatomic evaluation, multiplanar reconstruction, maximum intensity projections, and advanced 3-D off-line postprocessing were performed on a dedicated stand-alone workstation under the direct supervision of the interpreting physician. FINDINGS: POTENTIAL STUDY LIMITATIONS: None CORONARY ARTERIES: CORONARY ANATOMY: There is normal origin of the coronary arteries. Moderate coronary artery calcifications are seen. Please note,the study is not optimized for evaluation of coronary arteries. CARDIAC CHAMBERS: The cardiac chambers demonstrate normal atrioventricular and ventriculoarterial concordance, and systemic and pulmonary venous return. LEFT ATRIUM: Significantly dilated (41-cm2). The patient is status post left atrial appendage closure device placement.The device is well-seated without evidence of tilt. Left atrial appendage appears to be non patent . No evidence of peridevice leak. There is device related thrombus with hypoattenuating thickening(HAT) on the atrial side of the device measuring up to 15 mm with irregularity and no left atrial wall continuity(Grade 2 HAT).. RIGHT ATRIUM: Moderately to significantly dilated (32-cm2) VENTRICLES: The left and right ventricles appear normal in appearance, although accurate size measurements are not possible on systolic phase imaging. INTERATRIAL SEPTUM: Intact. INTERVENTRICULAR SEPTUM: Intact. AORTIC VALVE: The aortic valve is trileaflet in morphology. No valvular thickening or calcifications. MITRAL VALVE: No valvular thickening/calcification. THORACIC AORTA: The thoracic aorta normal in course and caliber.There is no evidence for acute aortic pathology, such as dissection, intramural hematoma, or contained rupture. The aortic arch is not included on this examination. PERICARDIUM: There is no pericardial effusion seen. CHEST: The trachea and central airways are patent. No endobronchial lesion is seen. There is trace right pleural effusion seen. There is mild bibasilar dependent atelectasis. There is a small benign calcified granuloma along the right lung base on axial image 191, series 401. Otherwise, no new suspicious nodules or masses within included bilateral lungs. No evidence of lymphadenopathy within included mediastinum. There are few small benign calcified lymph nodes within mediastinum and right hilar region, likely representing sequelae of remote granulomatous process. Redemonstrated moderate-sized hiatal hernia with mild distal esophageal wall thickening; correlate with concern for reflux esophagitis. UPPER ABDOMEN: Multiple tiny benign calcified granulomas throughout visualized liver and spleen. Otherwise, the visualized subdiaphragmatic structures demonstrate no remarkable findings. CHEST WALL AND OSSEOUS STRUCTURES: Visualized chest wall is within normal limits. No acute osseous pathology.There are no suspicious osseous lesions within included chest. IMPRESSION: 1. The patient is status post left atrial appendage closure device placement. The left atrial appendage in non patent without evidence of peridevice leak. 2. There is device related thrombus with hypoattenuating thickening(HAT) on the atrial side of the device measuring up to 15 mm with irregularity and no left atrial wall continuity(Grade 2 HAT).. 3. No pericardial effusion seen.. 4. Trace right pleural effusion. 5. Moderate coronary artery calcifications are seen. Please note,the study is not optimized for evaluation of coronary arteries. 6. Redemonstrated moderate-sized hiatal hernia with mild distal esophageal wall thickening; correlate with concern for reflux esophagitis. MACRO: Critical Finding: See findings. Notification was initiated on 06/11/2024 at 12:30 pm by Dylan Shay. (-YCF-) Instructions: Signed by: Dylan Shay 06/11/2024 12:37 PM Dictation workstation: [id number] HospitalCT watchman full contraston . The patient is status post left atrial appendage closure device placement. The left atrial appendage in non patent without evidence of peridevice leak. 2. There is device related thrombus with hypoattenuating thickening(HAT) on the atrial side of the device measuring up to 15 mm with irregularity and no left atrial wall continuity(Grade 2 HAT).. 3. No pericardial effusion seen.. 4. Trace right pleural effusion. 5. Moderate coronary artery calcifications are seen. Please note,the study is not optimized for evaluation of coronary arteries. 6. Redemonstrated moderate-sized hiatal hernia with mild distal esophageal wall thickening; correlate with concern for reflux esophagitis. MACRO: Critical Finding: See findings. Notification was initiated on 06/11/2024 at 12:30 pm by Dylan Shay. (-YCF-) Instructions: Signed by: Dylan Shay 06/11/2024 12:37 PM Dictation workstation: [id number] By: Dylan Shay, STUDY: CT WATCHMAN FULL CONTRAST; 06/11/2024 11:30 am INDICATION: Signs/Symptoms:A-fib, Post Watchman. COMPARISON: CT angiogram 02/09/2024 ACCESSION NUMBER(S): [id number] ORDERING CLINICIAN: ADEBAYO SANTIAGO TECHNIQUE: Using multi detector CT technology,axial imaging with prospective gating was performed of the chest following the intravenous administration of 70 ML Omnipaque 350. For optimization of anatomic evaluation, multiplanar reconstruction, maximum intensity projections, and advanced 3-D off-line postprocessing were performed on a dedicated stand-alone workstation under the direct supervision of the interpreting physician. FINDINGS: POTENTIAL STUDY LIMITATIONS: None CORONARY ARTERIES: CORONARY ANATOMY: There is normal origin of the coronary arteries. Moderate coronary artery calcifications are seen. Please note,the study is not optimized for evaluation of coronary arteries. CARDIAC CHAMBERS: The cardiac chambers demonstrate normal atrioventricular and ventriculoarterial concordance, and systemic and pulmonary venous return. LEFT ATRIUM: Significantly dilated (41-cm2). The patient is status post left atrial appendage closure device placement.The device is well-seated without evidence of tilt. Left atrial appendage appears to be non patent . No evidence of peridevice leak. There is device related thrombus with hypoattenuating thickening(HAT) on the atrial side of the device measuring up to 15 mm with irregularity and no left atrial wall continuity(Grade 2 HAT).. RIGHT ATRIUM: Moderately to significantly dilated (32-cm2) VENTRICLES: The left and right ventricles appear normal in appearance, although accurate size measurements are not possible on systolic phase imaging. INTERATRIAL SEPTUM: Intact. INTERVENTRICULAR SEPTUM: Intact. AORTIC VALVE: The aortic valve is trileaflet in morphology. No valvular thickening or calcifications. MITRAL VALVE: No valvular thickening/calcification. THORACIC AORTA: The thoracic aorta normal in course and caliber.There is no evidence for acute aortic pathology, such as dissection, intramural hematoma, or contained rupture. The aortic arch is not included on this examination. PERICARDIUM: There is no pericardial effusion seen. CHEST: The trachea and central airways are patent. No endobronchial lesion is seen. There is trace right pleural effusion seen. There is mild bibasilar dependent atelectasis. There is a small benign calcified granuloma along the right lung base on axial image 191, series 401. Otherwise, no new suspicious nodules or masses within included bilateral lungs. No evidence of lymphadenopathy within included mediastinum. There are few small benign calcified lymph nodes within mediastinum and right hilar region, likely representing sequelae of remote granulomatous process. Redemonstrated moderate-sized hiatal hernia with mild distal esophageal wall thickening; correlate with concern for reflux esophagitis. UPPER ABDOMEN: Multiple tiny benign calcified granulomas throughout visualized liver and spleen. Otherwise, the visualized subdiaphragmatic structures demonstrate no remarkable findings. CHEST WALL AND OSSEOUS STRUCTURES: Visualized chest wall is within normal limits. No acute osseous pathology.There are no suspicious osseous lesions within included chest. Dylan Abraham MD - 06/11/2024 Interpreted By: Dylan Shay, STUDY: CT WATCHMAN FULL CONTRAST; 06/11/2024 11:30 am INDICATION: Signs/Symptoms:A-fib, Post Watchman. COMPARISON: CT angiogram 02/09/2024 ACCESSION NUMBER(S): [id number] ORDERING CLINICIAN: ADEBAYO SANTIAGO TECHNIQUE: Using multi detector CT technology,axial imaging with prospective gating was performed of the chest following the intravenous administration of 70 ML Omnipaque 350. For optimization of anatomic evaluation, multiplanar reconstruction, maximum intensity projections, and advanced 3-D off-line postprocessing were performed on a dedicated stand-alone workstation under the direct supervision of the interpreting physician. FINDINGS: POTENTIAL STUDY LIMITATIONS: None CORONARY ARTERIES: CORONARY ANATOMY: There is normal origin of the coronary arteries. Moderate coronary artery calcifications are seen. Please note,the study is not optimized for evaluation of coronary arteries. CARDIAC CHAMBERS: The cardiac chambers demonstrate normal atrioventricular and ventriculoarterial concordance, and systemic and pulmonary venous return. LEFT ATRIUM: Significantly dilated (41-cm2). The patient is status post left atrial appendage closure device placement.The device is well-seated without evidence of tilt. Left atrial appendage appears to be non patent . No evidence of peridevice leak. There is device related thrombus with hypoattenuating thickening(HAT) on the atrial side of the device measuring up to 15 mm with irregularity and no left atrial wall continuity(Grade 2 HAT).. RIGHT ATRIUM: Moderately to significantly dilated (32-cm2) VENTRICLES: The left and right ventricles appear normal in appearance, although accurate size measurements are not possible on systolic phase imaging. INTERATRIAL SEPTUM: Intact. INTERVENTRICULAR SEPTUM: Intact. AORTIC VALVE: The aortic valve is trileaflet in morphology. No valvular thickening or calcifications. MITRAL VALVE: No valvular thickening/calcification. THORACIC AORTA: The thoracic aorta normal in course and caliber.There is no evidence for acute aortic pathology, such as dissection, intramural hematoma, or contained rupture. The aortic arch is not included on this examination. PERICARDIUM: There is no pericardial effusion seen. CHEST: The trachea and central airways are patent. No endobronchial lesion is seen. There is trace right pleural effusion seen. There is mild bibasilar dependent atelectasis. There is a small benign calcified granuloma along the right lung base on axial image 191, series 401. Otherwise, no new suspicious nodules or masses within included bilateral lungs. No evidence of lymphadenopathy within included mediastinum. There are few small benign calcified lymph nodes within mediastinum and right hilar region, likely representing sequelae of remote granulomatous process. Redemonstrated moderate-sized hiatal hernia with mild distal esophageal wall thickening; correlate with concern for reflux esophagitis. UPPER ABDOMEN: Multiple tiny benign calcified granulomas throughout visualized liver and spleen. Otherwise, the visualized subdiaphragmatic structures demonstrate no remarkable findings. CHEST WALL AND OSSEOUS STRUCTURES: Visualized chest wall is within normal limits. No acute osseous pathology.There are no suspicious osseous lesions within included chest. IMPRESSION: 1. The patient is status post left atrial appendage closure device placement. The left atrial appendage in non patent without evidence of peridevice leak. 2. There is device related thrombus with hypoattenuating thickening(HAT) on the atrial side of the device measuring up to 15 mm with irregularity and no left atrial wall continuity(Grade 2 HAT).. 3. No pericardial effusion seen.. 4. Trace right pleural effusion. 5. Moderate coronary artery calcifications are seen. Please note,the study is not optimized for evaluation of coronary arteries. 6. Redemonstrated moderate-sized hiatal hernia with mild distal esophageal wall thickening; correlate with concern for reflux esophagitis. MACRO: Critical Finding: See findings. Notification was initiated on 06/11/2024 at 12:30 pm by Dylan Shay. (-YCF-) Instructions: Signed by: Dylan Shay 06/11/2024 12:37 PM Dictation workstation: [id number] [facility] Work Phone: Radiology Study observation (narrative)[facility] Work Phone: CT watchman full contrastOrdered By: Dylan Shay on 24-94-2442VbntqukjomSelect Medical Specialty [facility] Work Phone: Albumin [Mass/volume] in Serum or Plasma by Bromocresol green (BCG) dye binding methoOrdered By: Viki Cooney on 06-07-2024 Albumin BCG dye [Mass/Vol]3.7 g/dL3.5-5.7FPremier Health Aspartate aminotransferase [Enzymatic activity/volume] in Serum or PlasmaOrdered By: Viki Cooney on 22-23-7401DWS [Catalytic activity/Vol]22 U/I31-71VlisfkmvnMercy HealthBasophils Auto (Bld) [#/Vol]Ordered By: Viki Cooney on 56-73-3742Sprzzizot (Bld) [#/Vol]0.0 10*3/uL0.0-0.2FPremier HealthBasophils/100 WBC Auto (Bld)Ordered By: Viki Cooney on 06-07-2024 Basophils/100 WBC (Bld)0.6 %.Mercy HealthCalcium [Mass/volume] in Serum or PlasmaOrdered By: Viki Cooney on 70-36-8742Yxztqmp [Mass/Vol]8.7 mg/dL8.6-10.3FPremier HealthCarbon dioxide, total [Moles/volume] in Serum or PlasmaOrdered By: Viki Cooney on 92-71-9033OU6 [Moles/Vol]24.7 mmol/L21.0-31.0Mercy HealthChloride [Moles/volume] in Serum or PlasmaOrdered By: Viki Cooney on 14-65-0539Ooxqjxlk [Moles/Vol]105 mmol/Q68-950RxqtqiwqdMercy HealthCreatinine [Mass/volume] in Serum or PlasmaOrdered By: Viki Cooney 05-01-1487Zpfggezbdz [Mass/Vol]1.56 mg/dLHigh0.70-1.30Mercy HealthEosinophils Auto (Bld) [#/Vol]Ordered By: Viki Cooney on 65-69-4640Xlnvtojpzog (Bld) [#/Vol]0.3 10*3/uL0.0-0.45Mercy HealthEosinophils/100 WBC Auto (Bld)Ordered By: Viki Cooney on 92-72-3737Uxglnnrddgn/100 WBC (Bld)4.3 %. Mercy HealthErythrocyte distribution width Auto (RBC) [Ratio]Ordered By: Viki Cooney on 24-83-2205Zyrarfeopnl distribution width (RBC) [Ratio]14.0 %12.0-14.8Mercy HealthGlucose [Mass/volume] in Serum or PlasmaOrdered By: Viki Cooney on 36-01-2666Ywrleht [Mass/Vol]102 mg/zOFnvs51-875GtpictfocMercy HealthComment on above: ADA recommended reference rangeRandom Glucose Reference Range is dependent on time and content of last meal. Glucose of more than 200 mg/dL in a nonstressed, ambulatory subject supports the diagnosisof Diabetes Mellitus.Hematocrit Auto (Bld) [Volume fraction]Ordered By: Viki Cooney on 82-47-9863Mhybksvydr (Bld) [Volume fraction]45.3 %38.8-50.0Mercy HealthHemoglobin [Mass/volume] in BloodOrdered By: Viki Cooney on 40-32-5945Msrbqlpbhs (Bld) [Mass/Vol]15.3 g/dL13.0-17.0Mercy HealthLeukocytes [#/volume] corrected for nucleated erythrocytes in Blood by Automated coun Ordered By: Viki Cooney on 64-40-3671ECA corrected for nucl RBC Auto (Bld) [#/Vol]7.6 10*3/uL4.1-10.5FPremier HealthLymphocytes Auto (Bld) [#/Vol]Ordered By: Viki Cooney on 30-33-5124Nlimonjtkia (Bld) [#/Vol]2.1 10*3/uL1.00-4.8Mercy HealthLymphocytes/100 WBC Auto (Bld) Ordered By: Viki Cooney on 67-17-4557Ffittkensed/100 WBC (Bld)27.7 %.Berger HospitalH Auto (RBC) [Entitic mass]Ordered By: Viki Cooney on 84-30-9631HXI (RBC) [Entitic mass]30.3 pg27.5-35.2FPremier HealthMCHC Auto (RBC) [Mass/Vol]Ordered By: Viki Cooney on 24-21-5061GJWW (RBC) [Mass/Vol]33.9 g/dL32.5-35.6FPremier HealthMCV Auto (RBC) [Entitic vol]Ordered By: Viki Cooney on 98-40-8111YPB (RBC) [Entitic vol]89.3 fL83.5-101Mercy HealthMonocytes Auto (Bld) [#/Vol]Ordered By: Viki Cooney on 70-44-8387Ithfirnal (Bld) [#/Vol]0.7 10*3/uL0.0-0.8Mercy HealthMonocytes/100 WBC Auto (Bld)Ordered By: Viki Cooney on 41-62-5864Xqvehlvxw/100 WBC (Bld)9.4 %.[facility] Neutrophils Auto (Bld) [#/Vol]Ordered By: Viki Cooney on 84-22-7215Olfpvfculxd (Bld) [#/Vol]4.4 10*3/uL1.8-7.7FPremier HealthNeutrophils/100 WBC Auto (Bld)Ordered By: Viki Cooney on 23-11-3746Kbhligqepya/100 WBC (Bld) 58.0 %.Mercy HealthNo Panel InformationOrdered By: Viki Cooney on 80-12-9202Eggpxidpj GFR (CKD-EPI)45.180 mL/MinMercy HealthPharmacy Creatinine Clearance (ChemN/AFPremier HealthNucleated erythrocytes [Presence] in Blood by Automated countOrdered By: Viki Cooney on 72-39-8969Tjppjnpsf RBC Auto Ql (Bld)0.1 /100{WBC}0-0.5FPremier HealthPhosphate [Mass/volume] in Serum or PlasmaOrdered By: Viki Cooney on 30-90-3554Edaxxwatw [Mass/Vol]2.9 mg/dL2.5-4.5FPremier HealthPlatelet mean volume Auto (Bld) [Entitic vol]Ordered By: Viki Cooney on 58-52-9129Ugooycwf mean volume (Bld) [Entitic vol]7.9 fL6.6-10.1 Mercy HealthPlatelets Auto (Bld) [#/Vol]Ordered By: Viki Cooney on 49-35-0860Pbdolautf (Bld) [#/Vol]213 10*3/uM755-551DbdwvjtaeMercy HealthPotassium [Moles/volume] in Serum or PlasmaOrdered By: Viki Cooney on 11-16-8411Xihenfldr [Moles/Vol]4.7 mmol/L3.5-5.1FPremier HealthRBC Auto (Bld) [#/Vol]Ordered By: Viki Cooney on 90-03-0464RMC (Bld) [#/Vol]5.06 10*6/uL3.90-5.60Doctors Hospitalerum or plasma anion gap determinationOrdered By: Viki Cooney on 83-47-1643Dhrir gap [Moles/Vol]13.0 mmol/L6.0-15.0Doctors Hospitalodium [Moles/volume] in Serum or PlasmaOrdered By: Viki Cooney on 99-86-6299Ndbucz [Moles/Vol]138 mmol/V958-111ZatxtgoioMercy HealthThyrotropin [Units/volume] in Serum or PlasmaOrdered By: Viki Cooney on 63-68-5146UWM Qn 1.96 m[IU]/L0.45-5.33Mercy HealthUrea nitrogen [Mass/volume] in Serum or PlasmaOrdered By: Viki Cooney on 78-46-1870Qfaw nitrogen [Mass/Vol]16 mg/dL7-25Mercy HealthWBC Auto (Bld) [#/Vol]Ordered By: Viki Cooney on 29-57-0261GIL (Bld) [#/Vol]7.6 10*3/uL 4.1-10.5FPremier HealthACT Coag (Bld)on 02-09-2024 Interpretation and review of laboratory resultsAbCentervilleInterpretation and review of laboratory resultsAbCentervilleACTIVATED CLOTTING TIME LOWon 18-61-0196CFB Coag (Bld)360 [facility]Com[facility] on above:Target ACT range will vary based on the patient population, clinical status, and surgical intervention occurring. ACT Coag (Bld)221 [facility]Com[facility] on above:Target ACT range will vary based on the patient population, clinical status, and surgical intervention occurring. Activated clotting timeon 42-32-6963EVH Coag (Bld)[address] on above:Result Comment: Target ACT range will vary based on the patient population, clinical status, and surgical intervention occurring.Performed By: #### 3184-9 #### YUMIKO Villatoro ([id number]) [facility] ([facility]) [id number] [place] [address] 100[address]DSP Coag (Bld)221 gFiom28-884IsmnxzytnmRiverview Health InstituteComment on above:Result Comment: Target ACT range will vary based on the patient population, clinical status, and surgical intervention occurring.Performed By: #### 3184-9 #### YUMIKO Villatoro ([id number]) [facility] ([facility]) [id number] [place] [address] [id number] CATHETERIZATION PROCEDUREon 78-84-1983FZIZQHJ CATHETERIZATION PROCEDUREMonmouth Medical Center, Audio Technician, [address] [place] [id number] Cardiovascular Catheterization Report Patient Name: AYAD DE LA ROSA Performing Physician: [id number] Santiago MD Study Date: 02/09/2024 Verifying Physician: Kimberly Santiago MD MRN/PID: [id number] 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 Using ultrasound guidance and micropuncture technique dual access was obtained in the right common femoral vein. Two 8F sheaths were placed using a modified Seldinger technique. The patient was administered IV Heparin and ACT was confirmed to be therapeutic. An AcuNav ICE probe was then advanced through one of the sheaths and under ICE guidance, transseptal puncture was with a versacross ([employer]), accessing the left atrium. The transseptal tract was then dilated with a Watchman Double Curve access sheath andthe ICE probe was advanced through the dilated tract into the left atrium. Next, a 6 [place]raini angled pigtail was advanced through the delivery sheath into the left atrial appendage and angiography was performed via the pigtail. Sizing of the device was confirmed by ICE and angiography. We then advanced a 27 mm Watchman Closure Device and confirmed placement both by ICE and angiography. A 'tug test'was performed and confirmed stability. No color Doppler flow around the device was appreciated. 30%device compression was also confirmed. Having satisfied position, anchoring, size and seal criteria, the device was successfully deployed. All equipment was then removed and hemostasis was facilitated by Perclose for 15 Fr and Vascade for 8 Fr. Patient was enrolled in the [employer] registry and data entered for research purposes. Hemo Personnel: + +---------+ Name Duty + +---------+ Adebayo Santiago MD, MD 1 + +---------+ Complications: No in-lab complications observed. Cardiac Cath Post Procedure Notes: Post Procedure Diagnosis: Successful LAAC with a 27 mm WM FLX Pro. Blood Loss: Estimated blood loss during the procedure was 20 mls. Specimens Removed: Number of specimen(s) removed: none. ____ CONCLUSIONS: 1. Successful LAAC with a 27 mm WM FLX Pro. ICD 10 Codes: Other persistent AFib-I48.19 CPT Codes: Perc left atrial appendage closure (LAAC)-32541 [id number] Adebayo Santiago MD Performing Physician Final [facility] CenterCT WATCHMAN LOW CONTASTon 68-21-7500MY WATCHMAN LOW CONTASTInterpreted By: Dylan Shay, STUDY: CT WATCHMAN LOW CONTAST; 02/09/2024 12:48 pm INDICATION: Signs/Symptoms:A-fib, Pre-Watchman, JOE Sizing, R/O JOE Thrombus. COMPARISON: None. ACCESSION NUMBER(S): [id number] ORDERING CLINICIAN: ADEBAYO SANTIAGO TECHNIQUE: Using multi-detector CT technology, axial, sequential imaging (at 45% phase of cardiac size) with prospective gating was performed of the chest following the intravenous administration of 50 mL of Omnipaque 350 contrast. Additional delayed axial, sequential imaging with prospective gating of chest was performed for better evaluation of left atrial appendage thrombus. For optimization of anatomic evaluation, multiplanar reconstruction, maximum intensity projections, and advanced 3-D off-line postprocessing were performed on a dedicated stand-alone workstation under the direct supervision of the interpreting physician. CT Dose-Length Product (DLP): 2118 mGy*cm FINDINGS: POTENTIAL STUDY LIMITATIONS: None CORONARY ARTERIES: CORONARY ANATOMY: There is normal origin of the coronary arteries. Left dominant system. Moderate coronary artery calcifications are seen. Please note,the study is not optimized for evaluation of coronary arteries. CARDIAC CHAMBERS: The cardiac chambers demonstrate normal atrioventricular and ventriculoarterial concordance, and systemic and pulmonary venous return. LEFT ATRIUM: Significantly dilated (40-cm2). There is a filling defect in the left atrial appendage on arterial phase which resolves on delayed imaging, consistent with circulatory stasis. Otherwise, there is no evidence of left atrial appendage or left atrial thrombus. The left atrial appendage orifice is oval in shape, measuring 2.1 cm x 2.0 in orthogonal dimensions and with an area of 3.3 cm. sq. Left atrial appendage depth is 2.5 cm. RIGHT ATRIUM: Mildly dilated (25-cm2) VENTRICLES: The left and right ventricles appear normal in appearance, although accurate size measurements are not possible on systolic phase imaging. INTERATRIAL SEPTUM: Intact. INTERVENTRICULAR SEPTUM: Intact. AORTIC VALVE: The aortic valve is trileaflet in morphology. No valvular thickening or calcifications. MITRAL VALVE: No valvular thickening/calcification. THORACIC AORTA: The thoracic aorta normal in course and caliber.There is no evidence for acute aortic pathology, such as dissection, intramural hematoma, or contained rupture. The aortic arch is not included on this examination. PERICARDIUM: There is no pericardial effusion seen. CHEST: The trachea and central airways are patent. No endobronchial lesion is seen. The bilateral lungs are clear without evidence of focal consolidation, pleural effusion, or pneumothorax. There is mild dependent atelectasis within bilateral lower lobes. There is no intrathoracic lymphadenopathy as per CT criteria.However, there are few small calcified subcarinal and right hilar lymph nodes seen, likely representing sequela of remote granulomatous process. There is a moderatesized hiatal hernia. Otherwise, the esophagus is within normal limits. UPPER ABDOMEN: Multiple benign calcified granulomas within visualized spleen and to lesser extent liver. Otherwise, the visualized subdiaphragmatic structures demonstrate no remarkable findings. CHEST WALL AND OSSEOUS STRUCTURES: Visualized chest wall is within normal limits. No acute osseous pathology.There are no suspicious osseous lesions within included chest.MULTILEVEL DEGENERATIVE CHANGES WITHIN VISUALIZED SPINE, INCLUDING PROMINENT ANTERIOR OSTEOPHYTOSIS. IMPRESSION: 1. No evidence of left atrial/left atrial appendage thrombus. 2. The left atrial appendage orifice is oval in shape, measuring 2.1 cm x 2.0 in orthogonal dimensions and with an area of 3.3 cm. sq. Left atrial appendage depth is 2.5 cm. 3. Moderate coronary artery calcifications are seen. Please note,the study is not optimized for evaluation of coronary arteries. 4. Moderate-sized hiatal hernia. MACRO: None Signed by: Dylan Shay 02/09/2024 1:10 PM Dictation workstation: [id number] Medical CenterComment on above:Order Comment: 250ml NS bolusCT watchman low contaston . No evidence of left atrial/left atrial appendage thrombus. 2. The left atrial appendage orifice is oval in shape, measuring 2.1 cm x 2.0 in orthogonal dimensions and with an area of 3.3 cm. sq. Left atrial appendage depth is 2.5 cm. 3. Moderate coronary artery calcifications are seen. Please note,the study is not optimized for evaluation of coronary arteries. 4. Moderate-sized hiatal hernia. MACRO: None Signed by: Dylan Shay 02/09/2024 1:10 PM Dictation workstation: [id number] By: Dylan Shay, STUDY: CT WATCHMAN LOW CONTAST; 02/09/2024 12:48 pm INDICATION: Signs/Symptoms:A-fib, Pre-Watchman, JOE Sizing, R/O JOE Thrombus. COMPARISON: None. ACCESSION NUMBER(S): [id number] ORDERING CLINICIAN: ADEBAYO SANTIAGO TECHNIQUE: Using multi-detector CT technology, axial, sequential imaging (at 45% phase of cardiac size) with prospective gating was performed of the chest following the intravenous administration of 50 mL of Omnipaque 350 contrast. Additional delayed axial, sequential imaging with prospective gating of chest was performed for better evaluation of left atrial appendage thrombus. For optimization of anatomic evaluation, multiplanar reconstruction, maximum intensity projections, and advanced 3-D off-line postprocessing were performed on a dedicated stand-alone workstation under the direct supervision of the interpreting physician. CT Dose-Length Product (DLP): 2118 mGy*cm FINDINGS: POTENTIAL STUDY LIMITATIONS: None CORONARY ARTERIES: CORONARY ANATOMY: There is normal origin of the coronary arteries. Left dominant system. Moderate coronary artery calcifications are seen. Please note,the study is not optimized for evaluation of coronary arteries. CARDIAC CHAMBERS: The cardiac chambers demonstrate normal atrioventricular and ventriculoarterial concordance, and systemic and pulmonary venous return. LEFT ATRIUM: Significantly dilated (40-cm2). There is a filling defect in the left atrial appendage on arterial phase which resolves on delayed imaging, consistent with circulatory stasis. Otherwise, there is no evidence of left atrial appendage or left atrial thrombus. The left atrial appendage orifice is oval in shape, measuring 2.1 cm x 2.0 in orthogonal dimensions and with an area of 3.3 cm. sq. Left atrial appendage depth is 2.5 cm. RIGHT ATRIUM: Mildly dilated (25-cm2) VENTRICLES: The left and right ventricles appear normal in appearance, although accurate size measurements are not possible on systolic phase imaging. INTERATRIAL SEPTUM: Intact. INTERVENTRICULAR SEPTUM: Intact. AORTIC VALVE: The aortic valve is trileaflet in morphology. No valvular thickening or calcifications. MITRAL VALVE: No valvular thickening/calcification. THORACIC AORTA: The thoracic aorta normal in course and caliber.There is no evidence for acute aortic pathology, such as dissection, intramural hematoma, or contained rupture. The aortic arch is not included on this examination. PERICARDIUM: There is no pericardial effusion seen. CHEST: The trachea and central airways are patent. No endobronchial lesion is seen. The bilateral lungs are clear without evidence of focal consolidation, pleural effusion, or pneumothorax. There is mild dependent atelectasis within bilateral lower lobes. There is no intrathoracic lymphadenopathy as per CT criteria.However, there are few small calcified subcarinal and right hilar lymph nodes seen, likely representing sequela of remote granulomatous process. There is a moderatesized hiatal hernia. Otherwise, the esophagus is within normal limits. UPPER ABDOMEN: Multiple benign calcified granulomas within visualized spleen and to lesser extent liver. Otherwise, the visualized subdiaphragmatic structures demonstrate no remarkable findings. CHEST WALL AND OSSEOUS STRUCTURES: Visualized chest wall is within normal limits. No acute osseous pathology.There are no suspicious osseous lesions within included chest.MULTILEVEL DEGENERATIVE CHANGES WITHIN VISUALIZED SPINE, INCLUDING PROMINENT ANTERIOR OSTEOPHYTOSIS. MMODALDylan Shay MD - 02/09/2024 Interpreted By: Dylan Shay, STUDY: CT WATCHMAN LOW CONTAST; 02/09/2024 12:48 pm INDICATION: Signs/Symptoms:A-fib, Pre-Watchman, JOE Sizing, R/O JOE Thrombus. COMPARISON: None. ACCESSION NUMBER(S): [id number] ORDERING CLINICIAN: ADEBAYO SANTIAGO TECHNIQUE: Using multi-detector CT technology, axial, sequential imaging (at 45% phase of cardiac size) with prospective gating was performed of the chest following the intravenous administration of 50 mL of Omnipaque 350 contrast. Additional delayed axial, sequential imaging with prospective gating of chest was performed for better evaluation of left atrial appendage thrombus. For optimization of anatomic evaluation, multiplanar reconstruction, maximum intensity projections, and advanced 3-D off-line postprocessing were performed on a dedicated stand-alone workstation under the direct supervision of the interpreting physician. CT Dose-Length Product (DLP): 2118 mGy*cm FINDINGS: POTENTIAL STUDY LIMITATIONS: None CORONARY ARTERIES: CORONARY ANATOMY: There is normal origin of the coronary arteries. Left dominant system. Moderate coronary artery calcifications are seen. Please note,the study is not optimized for evaluation of coronary arteries. CARDIAC CHAMBERS: The cardiac chambers demonstrate normal atrioventricular and ventriculoarterial concordance, and systemic and pulmonary venous return. LEFT ATRIUM: Significantly dilated (40-cm2). There is a filling defect in the left atrial appendage on arterial phase which resolves on delayed imaging, consistent with circulatory stasis. Otherwise, there is no evidence of left atrial appendage or left atrial thrombus. The left atrial appendage orifice is oval in shape, measuring 2.1 cm x 2.0 in orthogonal dimensions and with an area of 3.3 cm. sq. Left atrial appendage depth is 2.5 cm. RIGHT ATRIUM: Mildly dilated (25-cm2) VENTRICLES: The left and right ventricles appear normal in appearance, although accurate size measurements are not possible on systolic phase imaging. INTERATRIAL SEPTUM: Intact. INTERVENTRICULAR SEPTUM: Intact. AORTIC VALVE: The aortic valve is trileaflet in morphology. No valvular thickening or calcifications. MITRAL VALVE: No valvular thickening/calcification. THORACIC AORTA: The thoracic aorta normal in course and caliber.There is no evidence for acute aortic pathology, such as dissection, intramural hematoma, or contained rupture. The aortic arch is not included on this examination. PERICARDIUM: There is no pericardial effusion seen. CHEST: The trachea and central airways are patent. No endobronchial lesion is seen. The bilateral lungs are clear without evidence of focal consolidation, pleural effusion, or pneumothorax. There is mild dependent atelectasis within bilateral lower lobes. There is no intrathoracic lymphadenopathy as per CT criteria.However, there are few small calcified subcarinal and right hilar lymph nodes seen, likely representing sequela of remote granulomatous process. There is a moderatesized hiatal hernia. Otherwise, the esophagus is within normal limits. UPPER ABDOMEN: Multiple benign calcified granulomas within visualized spleen and to lesser extent liver. Otherwise, the visualized subdiaphragmatic structures demonstrate no remarkable findings. CHEST WALL AND OSSEOUS STRUCTURES: Visualized chest wall is within normal limits. No acute osseous pathology.There are no suspicious osseous lesions within included chest.MULTILEVEL DEGENERATIVE CHANGES WITHIN VISUALIZED SPINE, INCLUDING PROMINENT ANTERIOR OSTEOPHYTOSIS. IMPRESSION: 1. No evidence of left atrial/left atrial appendage thrombus. 2. The left atrial appendage orifice is oval in shape, measuring 2.1 cm x 2.0 in orthogonal dimensions and with an area of 3.3 cm. sq. Left atrial appendage depth is 2.5 cm. 3. Moderate coronary artery calcifications are seen. Please note,the study is not optimized for evaluation of coronary arteries. 4. Moderate-sized hiatal hernia. MACRO: None Signed by: Dylan Shay 02/09/2024 1:10 PM Dictation workstation: [id number] [facility] Work Phone: Radiology Study observation (narrative)[facility] Work Phone: CT watchman low contastOrdered By: Dylan Shay on 99-21-4644JsvhiadcxvParkview Health [facility] Hospital Work Phone: ECG 12-LEADon 98-34-6945JYV 12-LEADVentricular Rate 84 Atrial Rate 340 QRS Duration 108 Q-T Interval 412 QTC Calculation(Bazett) 486 R [place] -33 T [place] 39 QRS Count 13 Q Onset 220 T Offset 426 QTC Fredericia 460 Diagnosis Atrial fibrillation with frequent and consecutive Premature ventricular complexes Left axis deviation Septal infarct , age undetermined Inferior infarct , age undetermined Abnormal ECG No previous ECGs available Confirmed by Ned Whaley ([id number]) on 02/12/2024 2:43:23 PMNormalLyons VA Medical CenterAlbumin [Mass/volume] in Serum or Plasma by Bromocresol green (BCG) dye binding methoOrdered By: Chad Field on 70-99-4711Ahpxynr BCG dye [Mass/Vol]3.9 g/dL3.5-5.7FPremier HealthBacteria [Presence] in Urine by AutomatedOrdered By: Chad Field on 80-12-7434Oycionej Auto Ql (U)None seen [HPF]None SeenMercy HealthBasophils Auto (Bld) [#/Vol]Ordered By: Chad Field on 12-88-4109Qdacpswis (Bld) [#/Vol]0.1 10*3/uL 0.0-0.2FPremier HealthBasophils/100 WBC Auto (Bld)Ordered By: Chad Field on 43-10-6360Gbcfrdsyh/100 WBC (Bld)0.6 %.Mercy HealthBilirubin Test strip Ql (U)Ordered By: Chad Field on 19-98-0993Gbgselvrh Ql (U)NegativeNegativeMercy HealthCalcium [Mass/volume] in Serum or PlasmaOrdered By: Chad Field on 13-33-1775Obuysuy [Mass/Vol]9.1 mg/dL 8.6-10.3FPremier HealthCarbon dioxide, total [Moles/volume] in Serum or PlasmaOrdered By: Chad Field on 22-67-3719MU3 [Moles/Vol]26.3 mmol/L 21.0-31.0Mercy HealthChloride [Moles/volume] in Serum or PlasmaOrdered By: Chad Maximiliano on 11-95-7014Adoevvmz [Moles/Vol]106 mmol/L98-107 Mer[facility] HealthColor Auto (U)Ordered By: Chad Maximiliano on 99-39-7365Entrv (U)YellowYellowMercy HealthCreatinine [Mass/volume] in Serum or PlasmaOrdered By: Chad Maximiliano on 96-35-5826Gfnehdnfjf [Mass/Vol]1.57 mg/dL0.70-1.30Mercy HealthCreatinine [Mass/volume] in UrineOrdered By: Chad Maximiliano on 37-72-7341Hzknelzxfn (U) [Mass/Vol]177.00 mg/dLMercy HealthComment on above:No reference range establishedEosinophils Auto (Bld) [#/Vol]Ordered By: Chad Maximiliano on 01-58-1339Iulwhltbnec (Bld) [#/Vol]0.4 10*3/uL0.0-0.45Mercy HealthEosinophils/100 WBC Auto (Bld)Ordered By: Chad Maximiliano on 62-57-2357Koccofbonlr/100 WBC (Bld)4.8 %.[facility] Epithelial cells.squamous [#/area] in Urine sediment by Automated countOrdered By: Chad Maximiliano on 75-45-8541Hgimzasqhz cells.squamous Auto (Urine sed) [#/Area] N/AFPremier HealthErythrocyte distribution width Auto (RBC) [Ratio]Ordered By: Chad Maximiliano on 14-28-9160Rlrqwzyxhhz distribution width (RBC) [Ratio]14.3 %12.0-14.8Mercy HealthErythrocytes [#/area] in Urine sediment by Automated countOrdered By: Chad Maximiliano on 32-34-7295IKV Auto (Urine sed) [#/Area]1-2 [HPF]0-4FPremier HealthGlucose [Mass/volume] in Serum or PlasmaOrdered By: Chad Field on 04-68-1096Froooks [Mass/Vol]109 mg/wD22-348OsmpjoqrlMercy HealthComment on above:ADA recommended reference rangeRandom Glucose Reference Range is dependent on time and content of last meal. Glucose of more than 200 mg/dL in a nonstressed, ambulatory subject supports the diagnosisof Diabetes Mellitus.Glucose [Mass/volume] in Urine by Test stripOrdered By: Chad Field on 32-27-6716Zyfzzyj Test strip (U) [Mass/Vol]Normal mg/dLNormalMercy Health Hematocrit Auto (Bld) [Volume fraction]Ordered By: Chad Field on 01-29-2024 Hematocrit (Bld) [Volume fraction]45.3 %38.8-50.0Mercy HealthHemoglobin Test strip Ql (U)Ordered By: Chad Field on 01-29-2024 Hemoglobin Ql (U)NegativeNegativeMercy HealthHemoglobin [Mass/volume] in BloodOrdered By: Chad Field on 27-54-7993Admcexmuto (Bld) [Mass/Vol]15.4 g/dL13.0-17.0Mercy HealthHyaline casts [#/area] in Urine sediment by Automated countOrdered By: Chad Field on 36-12-1897Qmwfbqi casts Auto (Urine sed) [#/Area]0-8 [LPF]0-8Mercy HealthKetones Test strip Ql (U)Ordered By: Chad Field on 01-29-2024 Ketones Ql (U)NegativeNegativeMercy HealthLeukocyte esterase [Presence] in Urine by Test stripOrdered By: Chad Field on 01-29-2024 Leukocyte esterase Test strip Ql (U)NegativeNegativeMercy HealthLeukocytes [#/area] in Urine sediment by Automated countOrdered By: Chad Field on 99-76-6944YGT Auto (Urine sed) [#/Area]1-2 [HPF]0-4FPremier HealthLeukocytes [#/volume] corrected for nucleated erythrocytes in Blood by Automated counOrdered By: Chad Maximiliano on 58-78-4288VUQ corrected for nucl RBC Auto (Bld) [#/Vol]8.3 10*3/uL4.1-10.5FPremier Health Lymphocytes Auto (Bld) [#/Vol]Ordered By: Chad Maximiliano on 28-44-8222Qrotubvxnxh (Bld) [#/Vol]2.5 10*3/uL1.00-4.8Mercy HealthLymphocytes/100 WBC Auto (Bld)Ordered By: Chad Maximiliano on 45-76-3752Slwakcobhdk/100 WBC (Bld) 30.1 %.[facility] HospitalH Auto (RBC) [Entitic mass]Ordered By: Chad Maximiliano on 60-23-2929CHU (RBC) [Entitic mass]29.7 pg27.5-35.2FPremier HealthMCHC Auto (RBC) [Mass/Vol]Ordered By: Chad Maximiliano on 95-87-6847RTWE (RBC) [Mass/Vol]33.9 g/dL32.5-35.6FPremier HealthMCV Auto (RBC) [Entitic vol]Ordered By: Chad Maximiliano on 90-21-9265LJR (RBC) [Entitic vol]87.5 fL83.5-101Mercy HealthMagnesium [Mass/volume] in Serum or PlasmaOrdered By: Chad Maximiliano on 22-04-8957Kgwcsmxzk [Mass/Vol]1.9 mg/dL1.9-2.7FPremier HealthMonocytes Auto (Bld) [#/Vol]Ordered By: Chad Maximiliano on 72-63-6531Fefaebgzg (Bld) [#/Vol]0.9 10*3/uL 0.0-0.8Mercy HealthMonocytes/100 WBC Auto (Bld)Ordered By: Chad Maximiliano on 90-17-9712Vmtyavgwj/100 WBC (Bld)10.5 %.Mercy HealthMucus [Presence] in Urine by AutomatedOrdered By: Chad Maximiliano on 16-02-5983Idbnq Auto Ql (U)Rare [LPF][facility] Neutrophils Auto (Bld) [#/Vol]Ordered By: Chad Field on 72-85-0314Jcoxrsxrqkj (Bld) [#/Vol]4.5 10*3/uL1.8-7.7FPremier HealthNeutrophils/100 WBC Auto (Bld)Ordered By: Chad Field on 13-29-7277Rfjymbpuana/100 WBC (Bld)54.0 %.Mercy HealthNitrite Test strip Ql (U)Ordered By: Chad Field on 55-78-0656Xfrxbyx Ql (U)NegativeNegativeMercy HealthNo Panel InformationOrdered By: Chad Field on 74-61-0239Ygkhtabyx GFR (CKD-EPI)44.835 mL/MinMercy HealthPharmacy Creatinine Clearance (ChemN/AFPremier HealthNucleated erythrocytes [Presence] in Blood by Automated countOrdered By: Chad Field on 01-29-2024 Nucleated RBC Auto Ql (Bld)0.2 /100{WBC}0-0.5FPremier Health Parathyrin.intact [Mass/volume] in Serum or PlasmaOrdered By: Chad Field on 04-89-3801Zwqnreoscj.intact [Mass/Vol]86.4 pg/bG70-65ZnmbmergbMercy HealthPhosphate [Mass/volume] in Serum or PlasmaOrdered By: Chad Field on 95-74-9400Fgftnuuuj [Mass/Vol]3.1 mg/dL2.5-4.5FPremier Health Platelet mean volume Auto (Bld) [Entitic vol]Ordered By: Chad Field on 37-33-2038Eqbytqgu mean volume (Bld) [Entitic vol]8.0 fL6.6-10.1FPremier HealthPlatelets Auto (Bld) [#/Vol]Ordered By: Chad Field on 99-20-6758Spvezybri (Bld) [#/Vol]231 10*3/kV424-195MoahimpesMercy HealthPotassium [Moles/volume] in Serum or PlasmaOrdered By: Chad Perezdir on 56-70-5770Kiliptwlb [Moles/Vol]4.4 mmol/L3.5-5.1FPremier HealthProtein Test strip (U) [Mass/Vol]Ordered By: Chad Maximiliano on 01-29-2024 Protein (U) [Mass/Vol]NegativeNegativeMercy HealthProtein [Mass/volume] in UrineOrdered By: Chad Maximiliano on 22-79-6664Efukack (U) [Mass/Vol]14 mg/dL0-9Mercy HealthRBC Auto (Bld) [#/Vol] Ordered By: Chad Preezdir on 54-93-0032SLF (Bld) [#/Vol]5.18 10*6/uL3.90-5.60 Doctors Hospitalerum or plasma anion gap determinationOrdered By: Chad Field on 11-30-2955Dvnwo gap [Moles/Vol]11.1 mmol/L6.0-15.0Doctors Hospitalodium [Moles/volume] in Serum or PlasmaOrdered By: Chad Perezdir on 59-23-3635Uxaopr [Moles/Vol]139 mmol/Y961-225EvpygbcbnDoctors Hospitalpecific gravity Test strip (U) [Rel density]Ordered By: Chad Field on 08-65-7150Cybsdrwo gravity (U) [Rel density]1.0211.001-1.030Mercy HealthUrate [Mass/volume] in Serum or PlasmaOrdered By: Chad Field on 46-21-4281Nblii [Mass/Vol]8.1 mg/dL4.4-7.6FPremier HealthUrea nitrogen [Mass/volume] in Serum or PlasmaOrdered By: Chad Maximiliano on 13-12-8831Fhuc nitrogen [Mass/Vol]18 mg/dL7-25[facility] Urine appearanceOrdered By: Chad Boldenr on 05-49-4332Hnrjhiqxnu (U)ClearClear Mercy HealthUrine protein/creatinine ratioOrdered By: Chad Maximiliano on 88-73-1409Ohyhdty/Creatinine (U) [Ratio]79 mg/g{Cre}0-200Mercy HealthUrobilinogen Test strip (U) [Mass/Vol]Ordered By: Chad Field on 66-42-7144Liqfreilgvui (U) [Mass/Vol]Normal mg/dLNormalMercy HealthVitamin D+Metabolites [Mass/volume] in Serum or Plasma Ordered By: Chad Field on 58-55-1233Rbojltm D+Metabolites [Mass/Vol]37.8 ng/mL 30-100Mercy HealthComment on above:VITAMIN D STATUS 25(OH)VITAMIN D RANGE (ng/mL) Deficient <20 Insufficient 20 to <98Hnhzfpivsa56 to 100Reference: Altaf MF,Dejuan ALANIZ, Eleuterio BUSCH, et al. Evaluation,treatment, and prevention of vitamin D deficiency; an Endocrine Society clinical practice guideline. JCEM. 2010; 96(7):1911-30.WBC Auto (Bld) [#/Vol]Ordered By: Chad Field on 33-73-9693QZI (Bld) [#/Vol]8.3 10*3/uL 4.1-10.5FPremier HealthpH Test strip (U)Ordered By: Chad Field on 97-39-8507bR (U)5.5 [pH]5.0-9.0Mercy HealthGeneral Surgery Office/Clinic Noteon 26-38-5529Bwxdywo Surgery Office/Clinic NoteChief Complaint post operative follow up HPI Staff 6 week post operative follow up post left inguinal hernia repair. Denies surgical discomfort. Reports he did fall out of bed several days ago and is experiencing left lower abdominal pain. No use of pain medication. Denies bruising. Denies bleeding or drainage from incision. Reports scrotal swelling has improved. He continues to wear supportive undergarment. History of Present Illness 6 weeks s/p LIHR with mesh for large left scrotal hernia; doing well, no swelling or pain in groin;does report that he fell out of bed several days ago, has left flank/abd soreness, no bruising; no N/V; taking Aleve daily. normal bms. Review of Systems ROS - Provider Constitutional: no fever, no sweats, no weight loss. Eyes: no glasses, no blurred vision, no visual loss. ENMT: no dentures, no hoarseness, no swallowing difficulties, no hearing loss, no ear infection(s),no nose bleeds. Cardiovascular: normal blood pressure, no chest pain, regular heartbeat, no heart murmur. Respiratory: no shortness of breath, no cough, no asthma, no wheezing. Gastrointestinal: no nausea, no vomiting, no diarrhea, no constipation, no blood in stool, no change in bowel habits, no abdominal pain, no hepatitis. Genitourinary: no kidney stones, no urine infection, no dysuria. Musculoskeletal: no pain, no weakness. Skin: no changing moles, no rash, no skin lumps. Neurologic: no seizures, no epilepsy, no headache. Psychiatric: no emotional or psychiatric problem. Heme/Lymph: no bleeding problems, no anemia, no blood clots, no transfusions. Allergy/Immunologic: no swollen lymph nodes/glands, no IV drug abuse. Other: Additional ROS info: Except as noted in the above Review of Systems and in the History of Present Illness, all other systems have been reviewed and are negative or noncontributory. Physical Exam abd: obese, soft, normal bs; mild tenderness left abd wall/flank, no ecchymoses or hematoma; left inguinal incision well-healed; no induration or drainage; no scrotal swelling, minimal induration of left cord structures. Assessment/Plan 1. Incarcerated left inguinal hernia (K40.30: Unilateral inguinal hernia, with obstruction, withoutgangrene, not specified as recurrent) healing well; resume regular activities; with regard to the pain from the fall, likely musculoskeletal; if no improvement over the next week, recommend evaluation by Dr Tyson, possible abd/pelvic ct scan verses other xrays; if worsening pain, would present to ED for sooner evaluation; call with proble ms/questions. Follow-up No qualifying data available Problem List/Past Medical History Ongoing Abdominal pain, generalized Abnormal abdominal CT scan Acquired deaf mutism. Acute postoperative pain of groin Anemia in chronic kidney disease BMI 31.0-31.9,adult BPH with urinary obstruction Cardiomyopathy Carotid bruit Chronic GERD CKD (chronic kidney disease) stage 3, GFR 30-59 ml/min Congestive heart failure Coronary atherosclerosis Diaphragmatic hernia Diverticulitis of colon Eczema Elevated PSA Epigastric pain First degree atrioventricular block Hyperlipidemia Hyperparathyroidism due to renal insufficiency Hypothyroidism Incarcerated left inguinal hernia Iron deficiency anemia Left anterior fascicular block Lumbar spondylosis HI (mitral incompetence) Obesity Orthostatic hypotension Other dysphagia Pancreatic cyst Paroxysmal atrial fibrillation Personal history of colonic polyps Reducible left inguinal hernia Tremor Historical Acute eczema BPH - benign prostatic hyperplasia Chronic back pain Chronic deafness Heart disease Hyperlipidemia Procedure/Surgical History Repair of left inguinal hernia (10/09/2023), Colonoscopy (07/21/2023), Esophagogastroduodenoscopy (07/21/2023), Cystoscopy (06/05/2018), Right hemicolectomy (01/19/2016), Colonoscopy (12/30/2015), TRUS (transrectal ultrasound) guided cryoablation of prostate (01/13/2015), Cardiac catheterization, combined right and left heart, Cataract extraction and IOL (implantation of intraocular lens). Medications CeleBREX 100 mg Cap, 100 mg= 1 cap(s), Oral, Daily citalopram 10 mg Tab, Oral, Daily Eliquis 5 mg oral tablet, Oral, BID ferrous sulfate 325 mg oral enteric coated tablet, 325 mg= 1 tab(s), Oral, BID finasteride 5 mg Tab, 5 mg= 1 tab(s), Oral, Daily, 3 refills Flomax 0.4 mg Cap, 0.4 mg= 1 cap(s), Oral, Daily, 3 refills levothyroxine 75 mcg (0.075 mg) Tab, Oral, Daily Protonix 40 mg Tab-DR, 40 mg= 1 tab(s), Oral, BID, 3 refills simvastatin 20 mg Tab, 20 mg= 1 tab(s), Oral, Once a day (at bedtime) valsartan 40 mg Tab, 40 mg= 1 tab(s), Oral, Daily, Not taking Allergies No Known Allergies Social History Alcohol - Denies Alcohol Use, 01/13/2016 Substance Abuse - Denies Substance Abuse, 01/13/2016 Tobacco - Denies Tobacco Use, 01/13/2016 Never (less than 100 in lifetime) Tobacco Use:. Never Smokeless T (more content not included)...[facility] HospitalComment on above:Result Comment: Electronically Signed By: JUAN CHATMAN, Jamel Mccann\Date and Time Signed: 11/30/23 10:10 EDTAmbulatory Visit Summaryon 58-79-4862Nqlussutbi Visit Summary AYAD DE LA ROSA :1945 Visit Date:11/21/2023 Ambulatory Visit Instructions Your Care Team Attending Physician - JUAN CHATMAN, Jamel Mast Primary Care Physician - Marbella CHATMAN, Paulina This Is Your Medications List apixaban (Eliquis 5 mg oral tablet) celecoxib (CeleBREX 100 mg Cap) citalopram (citalopram 10 mg Tab) ferrous sulfate (ferrous sulfate 325 mg oral enteric coated tablet) finasteride (finasteride 5 mg Tab) levothyroxine (levothyroxine 75 mcg (0.075 mg) Tab) pantoprazole (Protonix 40 mg Tab-DR) simvastatin (simvastatin 20 mg Tab) tamsulosin (Flomax 0.4 mg Cap) valsartan (valsartan 40 mg Tab) Procedures Performed Repair of left inguinal hernia (10/09/2023), Colonoscopy (07/21/2023), Esophagogastroduodenoscopy (07/21/2023), Cystoscopy (06/05/2018), Right hemicolectomy (01/19/2016), Colonoscopy (12/30/2015), TRUS (transrectal ultrasound) guided cryoablation of prostate (01/13/2015), Cardiac catheterization, combined right and left heart, Cataract extraction and IOL (implantation of intraocular lens). Medications What How Much When Instructions Unchanged apixaban (Eliquis 5 mg oral tablet) By Mouth 2 times a day Unchanged celecoxib (CeleBREX 100 mg Cap) 1 Capsules By Mouth Every day Unchanged citalopram (citalopram 10 mg Tab) By Mouth Every day Unchanged ferrous sulfate (ferrous sulfate 325 mg oral enteric coated tablet) 1 Tablets By Mouth 2 times a day Unchanged finasteride (finasteride 5 mg Tab) 1 Tablets By Mouth Every day Unchanged levothyroxine (levothyroxine 75 mcg (0.075 mg) Tab) By Mouth Every day Unchanged pantoprazole (Protonix 40 mg Tab-DR) 1 Tablets By Mouth 2 times a day Unchanged simvastatin (simvastatin 20 mg Tab) 1 Tablets By Mouth Once a day (at bedtime) Unchanged tamsulosin (Flomax 0.4 mg Cap) 1 Capsules By Mouth Every day Unchanged valsartan (valsartan 40 mg Tab) 1 Tablets By Mouth Every day Allergies No Known Allergies Problems Ongoing - Any problem that you are currently receiving treatment for. Abdominal pain, generalized Abnormal abdominal CT scan Acquired deaf mutism. Acute postoperative pain of groin Anemia in chronic kidney disease BMI 31.0-31.9,adult BPH with urinary obstruction Cardiomyopathy Carotid bruit Chronic GERD CKD (chronic kidney disease) stage 3, GFR 30-59 ml/min Congestive heart failure Coronary atherosclerosis Diaphragmatic hernia Diverticulitis of colon Eczema Elevated PSA Epigastric pain First degree atrioventricular block Hyperlipidemia Hyperparathyroidism due to renal insufficiency Hypothyroidism Incarcerated left inguinal hernia Iron deficiency anemia Left anterior fascicular block Lumbar spondylosis HI (mitral incompetence) Obesity Orthostatic hypotension Other dysphagia Pancreatic cyst Paroxysmal atrial fibrillation Personal history of colonic polyps Reducible left inguinal hernia Tremor Historical - Any problem that you are no longer receiving treatment for. Acute eczema BPH - benign prostatic hyperplasia Chronic back pain Chronic deafness Heart disease Hyperlipidemia Patient Survey You may receive a survey via text or e-mail asking about your office visit. Please share your experience with us by completing your survey. We appreciate your feedback and thank you for choosing us for your care. [facility] HospitalAlanine aminotransferase [Enzymatic activity/volume] in Serum or PlasmaOrdered By: Chad Field on 40-53-8669WZP [Catalytic activity/Vol]12 U/L7-52Mer[facility] HealthAlbumin [Mass/volume] in Serum or Plasma by Bromocresol green (BCG) dye binding methoOrdered By: Chad Field on 48-06-7626Dkzbudp BCG dye [Mass/Vol]4.2 g/dL3.5-5.7FPremier HealthAlkaline phosphatase [Enzymatic activity/volume] in Serum or PlasmaOrdered By: Chad Field on 99-07-8155IYG [Catalytic activity/Vol]85 U/Q64-438AmxnsmjwxMercy HealthAspartate aminotransferase [Enzymatic activity/volume] in Serum or PlasmaOrdered By: Chad Field on 50-04-3845UOO [Catalytic activity/Vol]16 U/V34-44ZgrlkhxanMercy HealthAutomated erythrocytes count in urine sediment (number/area) Ordered By: Chad Field on 36-72-5048BQQ Auto (Urine sed) [#/Area]None seen [HPF]0-4FPremier HealthAutomated leukocytes count in urine sediment (number/area)Ordered By: Chad Field on 21-72-1914SIO Auto (Urine sed) [#/Area]0-1 [HPF]0-4FPremier HealthBasophils Auto (Bld) [#/Vol]Ordered By: Chad Field on 70-21-3242Sdgtbhtdv (Bld) [#/Vol]0.0 10*3/uL 0.0-0.2FPremier HealthBasophils/100 WBC Auto (Bld)Ordered By: Chad Field on 72-41-7016Nrowtxohr/100 WBC (Bld)0.5 %.[facility]cy HealthBilirubin Test strip Ql (U)Ordered By: Chad Field on 26-10-8697Thkcdquir Ql (U)NegativeNegativeMercy HealthBilirubin.total [Mass/volume] in Serum or PlasmaOrdered By: Chad Field on 52-99-7162Cttnhcbgh [Mass/Vol]0.7 mg/dL0.3-1.0Mercy HealthCalcium [Mass/volume] in Serum or PlasmaOrdered By: Chad Field on 23-58-3557Vfechyh [Mass/Vol]9.3 mg/dL8.6-10.3FPremier HealthCarbon dioxide, total [Moles/volume] in Serum or PlasmaOrdered By: Chad Field on 57-45-2932RA0 [Moles/Vol]30.3 mmol/L21.0-31.0Mercy HealthChloride [Moles/volume] in Serum or PlasmaOrdered By: Chad Field on 02-78-7317Hqertbkh [Moles/Vol]103 mmol/V43-437PduwoadezMercy HealthCholesterol [Mass/volume] in Serum or PlasmaOrdered By: Paulina Tyson on 1945Pmvukzvrwlo [Mass/Vol]186 mg/cD216-880CertilkyhMercy HealthComment on above: Chol less than 200 mg/dl low riskChol 201-239 mg/dl borderline riskChol 240 mg/dl and greater high riskCholesterol in LDL Calc [Mass/Vol]Ordered By: Paulina Tyson on 37-96-7688Zehojczkoxq in LDL [Mass/Vol]116 mg/dL0-100Mercy HealthComment on above:LDL ATP III CLASSIFICATIONLDL less than 100 mg/dL OptimalLDL 100-129 mg/dL Near or above cmffvfwMXK920-900 mg/dL Borderline highLDL 160-189 mg/dL HighLDL greater than 189 mg/dL Very highCholesterol in VLDL Calc [Mass/Vol]Ordered By: Paulina Tyson on 57-75-5098Psvgbwqcyfe in VLDL [Mass/Vol]28 mg/dLMercy HealthColor Auto (U)Ordered By: Chad Field on 53-73-1275Zbtwy (U)YellowYellowMercy Health Creatinine [Mass/volume] in Serum or PlasmaOrdered By: Chad Field on 11-17-2023 Creatinine [Mass/Vol]1.58 mg/dL0.70-1.30[facility] Creatinine [Mass/volume] in UrineOrdered By: Chad Field on 83-15-8393Wpdytkwcit (U) [Mass/Vol]164.0 mg/dLMercy HealthComment on above:No reference range establishedEosinophils Auto (Bld) [#/Vol]Ordered By: Chad Maximiliano on 62-18-2004Ynrogleneeq (Bld) [#/Vol]0.4 10*3/uL0.0-0.45Mercy HealthEosinophils/100 WBC Auto (Bld)Ordered By: Chad Maximiliano on 78-52-5553Akurmmbdjft/100 WBC (Bld)4.7 %.[facility] Erythrocyte distribution width Auto (RBC) [Ratio]Ordered By: Chad Maximiliano on 68-76-0776Wgcxshgnszn distribution width (RBC) [Ratio]13.7 %12.0-14.8Mercy HealthGlobulin Calc (S) [Mass/Vol]Ordered By: Chad Field on 47-10-8493Rmbaazzk (S) [Mass/Vol]2.7 g/dLMercy Health Glucose [Mass/volume] in Serum or PlasmaOrdered By: Chad Field on 11-17-2023 Glucose [Mass/Vol]102 mg/jR95-368SnsphxkrsMercy HealthComment on above:ADA recommended reference rangeRandom Glucose Reference Range is dependent on time and content of last meal. Glucose of more than 200 mg/dL in a nonstressed, ambulatory subject supports the diagnosisof Diabetes Mellitus. Glucose mean value [Mass/volume] in Blood Estimated from glycated hemoglobin Ordered By: Paulina Tyson on 92-07-0556Axenfel glucose Estimated from glycated hemoglobin (Bld) [Mass/Vol]128 mg/dLMercy HealthHematocrit Auto (Bld) [Volume fraction]Ordered By: Chad Field on 63-91-7015Qmwrztnkvl (Bld) [Volume fraction]47.6 %38.8-50.0[facility] Hemoglobin A1c percentageOrdered By: Paulina Tyson on 88-73-2059TuR4n (Bld) [Mass fraction]6.1 %4.3-5.6FPremier HealthComment on above:Increased risk for diabetes: 5.7 - 6.4diabetes: >6.4glycemic control for adults with diabetes: <7.0Hemoglobin [Mass/volume] in BloodOrdered By: Chad Feild on 39-56-5522Oodkprajzy (Bld) [Mass/Vol]15.9 g/dL13.0-17.0[facility] HealthKetones Auto test strip (U) [Mass/Vol]Ordered By: Chad Field on 30-13-6125Rgozdyu (U) [Mass/Vol]NegativeNegativeMercy HealthLaboratory - UrinalysisOrdered By: Chad Field on 41-63-2779Gdnjbds casts LM Ql (Urine sed)None seen [LPF]0-8[facility] HealthLeukocytes [#/volume] corrected for nucleated erythrocytes in Blood by Automated coun Ordered By: Chad Field on 35-15-2178QPS corrected for nucl RBC Auto (Bld) [#/Vol]9.3 10*3/uL4.1-10.5FPremier HealthLymphocytes Auto (Bld) [#/Vol]Ordered By: Chad Maximiliano on 87-42-6208Lmdsvovkeaf (Bld) [#/Vol]2.1 10*3/uL1.00-4.8[facility] HealthLymphocytes/100 WBC Auto (Bld) Ordered By: Chad Maximiliano on 48-73-9925Alqifkcsjre/100 WBC (Bld)22.7 %.[facility] Auto (RBC) [Entitic mass]Ordered By: Chad Maximiliano on 92-07-3988GQH (RBC) [Entitic mass]29.6 pg27.5-35.2FAultman Orrville HospitalHC Auto (RBC) [Mass/Vol]Ordered By: Chad Maximiliano on 68-26-9762NTMF (RBC) [Mass/Vol]33.3 g/dL32.5-35.6FPremier HealthMCV Auto (RBC) [Entitic vol]Ordered By: Chad Maximiliano on 83-23-6499EQN (RBC) [Entitic vol]88.9 fL 83.5-101[facility] HealthMagnesium [Mass/volume] in Serum or PlasmaOrdered By: Chad Maximiliano on 40-20-3608Bqbjivcww [Mass/Vol]2.0 mg/dL1.9-2.7 [facility] HealthMonocytes Auto (Bld) [#/Vol]Ordered By: Chad Maximiliano on 78-46-9778Fkgyhglic (Bld) [#/Vol]0.8 10*3/uL0.0-0.8[facility] HealthMonocytes/100 WBC Auto (Bld)Ordered By: Chad Maximiliano on 11-17-2023 Monocytes/100 WBC (Bld)9.1 %.[facility] HealthNeutrophils Auto (Bld) [#/Vol]Ordered By: Chad Maximiliano on 01-66-7686Ikvviwqvvfc (Bld) [#/Vol]5.9 10*3/uL1.8-7.7FPremier HealthNeutrophils/100 WBC Auto (Bld) Ordered By: Chad Field on 79-71-5804Pioqslvntun/100 WBC (Bld)63.0 %.[facility] HealthNitrite Test strip Ql (U)Ordered By: Chad Field on 34-63-6599Mxuvetv Ql (U)NegativeNegativeMercy HealthNo Panel InformationOrdered By: Chad Field on 76-45-7663Ddoptgtby GFR (CKD-EPI) 44.495 mL/MinMercy HealthPharmacy Creatinine Clearance (ChemN/AFPremier HealthNucleated erythrocytes [Presence] in Blood by Automated countOrdered By: Chad Field on 34-98-5114Vffryvxzc RBC Auto Ql (Bld)0.1 /100{WBC}0-0.5FPremier HealthParathyrin.intact [Mass/volume] in Serum or PlasmaOrdered By: Chad Field on 11-17-2023 Parathyrin.intact [Mass/Vol]88.3 pg/sK03-01UxdvixyqfMercy Health Phosphate [Mass/volume] in Serum or PlasmaOrdered By: Chad Field on 11-17-2023 Phosphate [Mass/Vol]3.0 mg/dL2.5-4.5FPremier HealthPlatelet mean volume Auto (Bld) [Entitic vol]Ordered By: Chad Field on 11-17-2023 Platelet mean volume (Bld) [Entitic vol]8.3 fL6.6-10.1FPremier HealthPlatelets Auto (Bld) [#/Vol]Ordered By: Chad Field on 29-51-4580Ksxvhhbnb (Bld) [#/Vol]222 10*3/wV382-138MdzcoexefMercy HealthPotassium [Moles/volume] in Serum or PlasmaOrdered By: Chad Field on 24-52-0288Qifyxcbet [Moles/Vol]4.7 mmol/L3.5-5.1FPremier HealthProstate specific Ag [Mass/volume] in Serum or PlasmaOrdered By: Paulina Tyson on 02-10-7822Ajrekkam specific Ag [Mass/Vol]2.250 ng/mL0.000-4.000[facility] Comment on above:Serial tumor marker results determined by assays using different manufacturers or methods may not be comparable.[facility] mobile equipment operator and method:[facility]) DXI, CHEMILUMINESCENT IMMUNOASSAY.Protein Auto test strip (U) [Mass/Vol]Ordered By: Chad Field on 45-26-0767Snhenih (U) [Mass/Vol]NegativeNegativeMercy HealthProtein [Mass/volume] in Serum or PlasmaOrdered By: Chad Maximiliano on 46-05-3092Srmsfmd [Mass/Vol]6.9 g/dL6.4-8.9[facility] HealthProtein [Mass/volume] in Urine Ordered By: Chad Boldenr on 54-86-1630Pxomlur (U) [Mass/Vol]12 mg/dL0-9[facility] HealthRBC Auto (Bld) [#/Vol]Ordered By: Chad Field on 89-02-7269BEK (Bld) [#/Vol]5.35 10*6/uL3.90-5.60Doctors Hospitalerum or plasma albumin/globulin mass ratioOrdered By: Chad Field on 84-07-6638Wbpwfrp/Globulin [Mass ratio]1.6 {ratio}Doctors Hospitalerum or plasma anion gap determinationOrdered By: Chad Field on 88-61-5736Qsixc gap [Moles/Vol]10.4 mmol/L6.0-15.0Doctors Hospitalerum or plasma high density lipoprotein (HDL) cholesterol measurement Ordered By: Paulina Tyson on 78-90-3354Pfimgjuczei in HDL [Mass/Vol]42 mg/dL23-92 [facility] HealthComment on above:HDL CHOL ATP-III CLASSIFICATION Cardiovascular RiskHDL > or equal to 60 mg/dL LOWHDL < 40 mg/dL HIGHSerum or plasma total cholesterol/high density lipoprotein (HDL) cholesterol mass ratOrdered By: Paulina Tyson on 72-98-8105Fpandvjyrmh.total/Cholesterol in HDL [Mass ratio]4.4 {ratio}<5.0Doctors Hospitalodium [Moles/volume] in Serum or PlasmaOrdered By: Chad Field on 39-40-6846Fyavxh [Moles/Vol]139 mmol/L380-698SqqodelnlDoctors Hospitalpecific gravity Auto test strip (U) [Rel density]Ordered By: Chad Field on 12-71-4574Jkykxeje gravity (U) [Rel density]1.0191.001-1.030[facility] Squamous epithelial cells detection in urine sediment by light microscopyOrdered By: Chad Field on 52-36-7698Hojgnutlcu cells.squamous LM Ql (Urine sed)None seen [HPF]0-2FPremier HealthThyrotropin [Units/volume] in Serum or PlasmaOrdered By: Paulina Tyson on 46-47-9161VBY Qn3.08 m[IU]/L0.45-5.33 [facility] HealthThyroxine (T4) free [Mass/volume] in Serum or PlasmaOrdered By: Paulina Tyson on 40-72-4864Afzf T4 [Mass/Vol]0.99 ng/dL0.61-1.12 [facility] HealthTriglyceride [Mass/volume] in Serum or Plasma Ordered By: Paulina Tyson on 89-83-9922Qtvyqdfpkiqd [Mass/Vol]142 mg/dL0-149 [facility] HealthComment on above:TRIG ATP III CLASSIFICATIONTRIG less than 150 mg/dL NormalTRIG 150-199 mg/dL Borderline highTRIG 200-500 mg/dL High TRIG greater than 500 mg/dL Very highStandard traceable to the Center for Disease Conrtrol and Prevention (CDC) test method. Triiodothyronine (T3) Free [Mass/volume] in Serum or PlasmaOrdered By: Paulina Tyson on 85-91-7275Txlh T3 [Mass/Vol]2.61 pg/mL2.50-3.90[facility] HealthUrate [Mass/volume] in Serum or PlasmaOrdered By: Paulina Tyson on 93-68-9750Yrlhe [Mass/Vol]8.3 mg/dL4.4-7.6FPremier HealthUrea nitrogen [Mass/volume] in Serum or PlasmaOrdered By: Chad Field on 11-17-2023 Urea nitrogen [Mass/Vol]20 mg/dL7-25[facility] HealthUrine bacteria detection by automated methodOrdered By: Chad Field on 11-17-2023 Bacteria Auto Ql (U)None seenNone SeenMercy HealthUrine clarity by refractometry automatedOrdered By: Chad Field on 04-36-2561Xdqldht Refractometry automated (U)ClearClearFPremier HealthUrine glucose measurement by automated test strip (mass/volume)Ordered By: Chad Field on 82-56-3068Qzgzrro Auto test strip (U) [Mass/Vol]Normal mg/dLNoBarnesville HospitalUrine hemoglobin detection by automated test stripOrdered By: Chad Field on 09-92-3074Nfojwnxclu Auto test strip Ql (U)NegativeNegOhioHealth Doctors HospitalUrine leukocyte esterase detection by automated test stripOrdered By: Chad Field on 14-16-8490Jndgtgupq esterase Auto test strip Ql (U)NegativeNegSelect Medical Specialty Hospital - Cleveland-FairhillUrine protein/creatinine ratioOrdered By: Chad Field on 98-43-9346Gxznhsf/Creatinine (U) [Ratio]73 mg/g{Cre}0-200[facility] HealthUrobilinogen Auto test strip (U) [Mass/Vol]Ordered By: Chad Field on 35-82-5411Nceztvxrrpez (U) [Mass/Vol]Normal mg/dLNoBarnesville HospitalVitamin D+Metabolites [Mass/volume] in Serum or PlasmaOrdered By: Chad Field on 63-09-9513Odzcspg D+Metabolites [Mass/Vol]26.8 ng/tF99-267FlwadsvjvMercy HealthComment on above:VITAMIN D STATUS 25(OH)VITAMIN D RANGE (ng/mL) Deficient <20 Insufficient 20 to <87Mqvovrjtwc98 to 100Reference: Altaf MF,Dejuan ALANIZ, Eleuterio BUSCH, et al. Evaluation,treatment, and prevention of vitamin D deficiency; an Endocrine Society clinical practice guideline. JCEM. 2010; 96(7):1911-30.WBC Auto (Bld) [#/Vol]Ordered By: Chad Field on 98-18-5707YDH (Bld) [#/Vol]9.3 10*3/uL4.1-10.5FPremier Health pH Auto test strip (U)Ordered By: Chad Field on 35-92-8021lN (U)6.0 [pH]5.0-9.0 [facility] HealthGeneral Surgery Office/Clinic Noteon 11-02-2023 General Surgery Office/Clinic NoteChief Complaint post operative follow up HPI Staff 22 day post operative follow up post left inguinal hernia repair. Reports moderate positional discomfort. No use of pain medication. Reports scrotal edema has improved since last visit; wearing compression undergarment. Denies bleeding or drainage. Bowels moving well. History of Present Illness 3 weeks s/p LIHR with mesh; patient still reports pain with changing positions, no pain meds, wearing compression shorts, still with some swelling of scrotum, but improving; normal bms, voiding well.ambulating without problems. Review of Systems ROS - Provider Constitutional: no fever, no sweats, no weight loss. Eyes: no glasses, no blurred vision, no visual loss. ENMT: no dentures, no hoarseness, no swallowing difficulties, no hearing loss, no ear infection(s),no nose bleeds. Cardiovascular: normal blood pressure, no chest pain, regular heartbeat, no heart murmur. Respiratory: no shortness of breath, no cough, no asthma, no wheezing. Gastrointestinal: no nausea, no vomiting, no diarrhea, no constipation, no blood in stool, no change in bowel habits, no abdominal pain, no hepatitis. Genitourinary: no kidney stones, no urine infection, no dysuria. Musculoskeletal: no pain, no weakness. Skin: no changing moles, no rash, no skin lumps. Neurologic: no seizures, no epilepsy, no headache. Psychiatric: no emotional or psychiatric problem. Heme/Lymph: no bleeding problems, no anemia, no blood clots, no transfusions. Allergy/Immunologic: no swollen lymph nodes/glands, no IV drug abuse. Other: Additional ROS info: Except as noted in the above Review of Systems and in the History of Present Illness, all other systems have been reviewed and are negative or noncontributory. Physical Exam abd: obese, soft, nontender, nondistended; incision healing well, no erythema or drainage, no ecchymoses; moderated induration of left spermatic cord; no hematoma, nontender. Assessment/Plan 1. Incarcerated left inguinal hernia (K40.30: Unilateral inguinal hernia, with obstruction, withoutgangrene, not specified as recurrent) doing well, continue to wear compression shorts, no strenuous activity for 1 more week, then gradually resume regular activities; f/u in 2-3 weeks, call sooner if problems/questions. Follow-up No qualifying data available Problem List/Past Medical History Ongoing Abdominal pain, generalized Abnormal abdominal CT scan Acquired deaf mutism. Acute postoperative pain of groin Anemia in chronic kidney disease BMI 31.0-31.9,adult BPH with urinary obstruction Cardiomyopathy Carotid bruit Chronic GERD CKD (chronic kidney disease) stage 3, GFR 30-59 ml/min Congestive heart failure Coronary atherosclerosis Diaphragmatic hernia Diverticulitis of colon Eczema Elevated PSA Epigastric pain First degree atrioventricular block Hyperlipidemia Hyperparathyroidism due to renal insufficiency Hypothyroidism Incarcerated left inguinal hernia Iron deficiency anemia Left anterior fascicular block Lumbar spondylosis HI (mitral incompetence) Obesity Orthostatic hypotension Other dysphagia Pancreatic cyst Paroxysmal atrial fibrillation Personal history of colonic polyps Reducible left inguinal hernia Tremor Historical Acute eczema BPH - benign prostatic hyperplasia Chronic back pain Chronic deafness Heart disease Hyperlipidemia Procedure/Surgical History Repair of left inguinal hernia (10/09/2023), Colonoscopy (07/21/2023), Esophagogastroduodenoscopy (07/21/2023), Cystoscopy (06/05/2018), Right hemicolectomy (01/19/2016), Colonoscopy (12/30/2015), TRUS (transrectal ultrasound) guided cryoablation of prostate (01/13/2015), Cardiac catheterization, combined right and left heart, Cataract extraction and IOL (implantation of intraocular lens). Medications CeleBREX 100 mg Cap, 100 mg= 1 cap(s), Oral, Daily citalopram 10 mg Tab, Oral, Daily Eliquis 5 mg oral tablet, Oral, BID ferrous sulfate 325 mg oral enteric coated tablet, 325 mg= 1 tab(s), Oral, BID finasteride 5 mg Tab, 5 mg= 1 tab(s), Oral, Daily, 3 refills Flomax 0.4 mg Cap, 0.4 mg= 1 cap(s), Oral, Daily, 3 refills levothyroxine 75 mcg (0.075 mg) Tab, Oral, Daily Protonix 40 mg Tab-DR, 40 mg= 1 tab(s), Oral, BID, 3 refills simvastatin 20 mg Tab, 20 mg= 1 tab(s), Oral, Once a day (at bedtime) valsartan 40 mg Tab, 40 mg= 1 tab(s), Oral, Daily, Not taking Allergies No Known Allergies Social History Alcohol - Denies Alcohol Use, 01/13/2016 Substance Abuse - Denies Substance Abuse, 01/13/2016 Tobacco - Denies Tobacco Use, 01/13/2016 Never (less than 100 in lifetime) Tobacco Use:. Never Smokeless Tobacco Use:., 08/31/2023 Family History Acute myocardial infarction: Father. Heart failure: Sister. Hypertension: Mother. Immunizations Vaccine Date Status Comments influenza virus vaccine, inactivated 06/09/2023 Recorded SARSCoV2 mRNA(iewxzmekl-nhez-glrmvl) v (more content not included)...Normal [facility] HospitalComment on above:Result Comment: Electronically Signed By: JUAN CHATMAN, Jamel Mast\.br\Date and Time Signed: 11/02/23 18:45 EDT Ambulatory Visit Summaryon 59-82-5291Gtorpjzcre Visit Summary AYAD DE LA ROSA :1945 Visit Date:10/31/2023 Ambulatory Visit Instructions Your Care Team Attending Physician - Jamel MARTINEZ MD Primary Care Physician - Paulina Tyson MD This Is Your Medications List apixaban (Eliquis 5 mg oral tablet) celecoxib (CeleBREX 100 mg Cap) citalopram (citalopram 10 mg Tab) ferrous sulfate (ferrous sulfate 325 mg oral enteric coated tablet) finasteride (finasteride 5 mg Tab) levothyroxine (levothyroxine 75 mcg (0.075 mg) Tab) pantoprazole (Protonix 40 mg Tab-DR) simvastatin (simvastatin 20 mg Tab) tamsulosin (Flomax 0.4 mg Cap) valsartan (valsartan 40 mg Tab) Procedures Performed Repair of left inguinal hernia (10/09/2023), Colonoscopy (07/21/2023), Esophagogastroduodenoscopy (07/21/2023), Cystoscopy (06/05/2018), Right hemicolectomy (01/19/2016), Colonoscopy (12/30/2015), TRUS (transrectal ultrasound) guided cryoablation of prostate (01/13/2015), Cardiac catheterization, combined right and left heart, Cataract extraction and IOL (implantation of intraocular lens). Medications What How Much When Instructions Unchanged apixaban (Eliquis 5 mg oral tablet) By Mouth 2 times a day Unchanged celecoxib (CeleBREX 100 mg Cap) 1 Capsules By Mouth Every day Unchanged citalopram (citalopram 10 mg Tab) By Mouth Every day Unchanged ferrous sulfate (ferrous sulfate 325 mg oral enteric coated tablet) 1 Tablets By Mouth 2 times a day Unchanged finasteride (finasteride 5 mg Tab) 1 Tablets By Mouth Every day Unchanged levothyroxine (levothyroxine 75 mcg (0.075 mg) Tab) By Mouth Every day Unchanged pantoprazole (Protonix 40 mg Tab-DR) 1 Tablets By Mouth 2 times a day Unchanged simvastatin (simvastatin 20 mg Tab) 1 Tablets By Mouth Once a day (at bedtime) Unchanged tamsulosin (Flomax 0.4 mg Cap) 1 Capsules By Mouth Every day Unchanged valsartan (valsartan 40 mg Tab) 1 Tablets By Mouth Every day Allergies No Known Allergies Problems Ongoing - Any problem that you are currently receiving treatment for. Abdominal pain, generalized Abnormal abdominal CT scan Acquired deaf mutism. Acute postoperative pain of groin Anemia in chronic kidney disease BMI 31.0-31.9,adult BPH with urinary obstruction Cardiomyopathy Carotid bruit Chronic GERD CKD (chronic kidney disease) stage 3, GFR 30-59 ml/min Congestive heart failure Coronary atherosclerosis Diaphragmatic hernia Diverticulitis of colon Eczema Elevated PSA Epigastric pain First degree atrioventricular block Hyperlipidemia Hyperparathyroidism due to renal insufficiency Hypothyroidism Incarcerated left inguinal hernia Iron deficiency anemia Left anterior fascicular block Lumbar spondylosis HI (mitral incompetence) Obesity Orthostatic hypotension Other dysphagia Pancreatic cyst Paroxysmal atrial fibrillation Personal history of colonic polyps Reducible left inguinal hernia Tremor Historical - Any problem that you are no longer receiving treatment for. Acute eczema BPH - benign prostatic hyperplasia Chronic back pain Chronic deafness Heart disease Hyperlipidemia Patient Survey You may receive a survey via text or e-mail asking about your office visit. Please share your experience with us by completing your survey. We appreciate your feedback and thank you for choosing us for your care. [facility]General [facility]/Clinic Noteon 80-61-4437Kckloxc Surgery Office/Clinic NoteChief Complaint post operative follow up HPI Staff 8 day post operative follow up post left inguinal hernia repair. Reports moderate positional pain. Arising from recliner is especially painful. Taking Oxycodone which is not effective. Denies bleeding, drainage or significant bruising. Reports moderate scrotal edema, he is intermittently wearing sup portive undergarment. Reports bilateral lower extremity edema as well. History of Present Illness 8 days s/o LIHR with mesh for large inguinal/scrotal hernia with incarcerated fat; doing well, complains of pain when getting up from chair or bed, not relieved with pain medication; no drainage fromincisions, no pain when resting; some scrotal swelling, no wearing compression shorts; normal bms, voiding well; some mild bilateral lower extremity edema. no fevers. Review of Systems ROS - Provider Constitutional: no fever, no sweats, no weight loss. Eyes: no glasses, no blurred vision, no visual loss. ENMT: no dentures, no hoarseness, no swallowing difficulties, no hearing loss, no ear infection(s),no nose bleeds. Cardiovascular: normal blood pressure, no chest pain, regular heartbeat, no heart murmur. Respiratory: no shortness of breath, no cough, no asthma, no wheezing. Gastrointestinal: no nausea, no vomiting, no diarrhea, no constipation, no blood in stool, no change in bowel habits, no abdominal pain, no hepatitis. Genitourinary: no kidney stones, no urine infection, no dysuria. Musculoskeletal: no pain, no weakness. Skin: no changing moles, no rash, no skin lumps. Neurologic: no seizures, no epilepsy, no headache. Psychiatric: no emotional or psychiatric problem. Heme/Lymph: no bleeding problems, no anemia, no blood clots, no transfusions. Allergy/Immunologic: no swollen lymph nodes/glands, no IV drug abuse. Other: Additional ROS info: Except as noted in the above Review of Systems and in the History of Present Illness, all other systems have been reviewed and are negative or noncontributory. Physical Exam abd: soft, nontender, nondistended, incision without erythema or drainage, no ecchymoses, mild scrotal edema bilaterally mild LE edema bilaterally Assessment/Plan 1. Incarcerated left inguinal hernia (K40.30: Unilateral inguinal hernia, with obstruction, withoutgangrene, not specified as recurrent) doing well; recommend compression shorts to minimize scrotal edema; short course of NSAIDs for inflammation, Aleve bid for 10 days; patient to take with food, and is on PPI bid; had taken Celebrex inpast without problems; discontinue Oxycodone since it is not helping; no strenuous activities; f/u in 2 weeks, call sooner if problems/questions. Follow-up No qualifying data available Problem List/Past Medical History Ongoing Abdominal pain, generalized Abnormal abdominal CT scan Acquired deaf mutism. Acute postoperative pain of groin Anemia in chronic kidney disease BMI 31.0-31.9,adult BPH with urinary obstruction Cardiomyopathy Carotid bruit Chronic GERD CKD (chronic kidney disease) stage 3, GFR 30-59 ml/min Congestive heart failure Coronary atherosclerosis Diaphragmatic hernia Diverticulitis of colon Eczema Elevated PSA Epigastric pain First degree atrioventricular block Hyperlipidemia Hyperparathyroidism due to renal insufficiency Hypothyroidism Incarcerated left inguinal hernia Iron deficiency anemia Left anterior fascicular block Lumbar spondylosis HI (mitral incompetence) Obesity Orthostatic hypotension Other dysphagia Pancreatic cyst Paroxysmal atrial fibrillation Personal history of colonic polyps Reducible left inguinal hernia Tremor Historical Acute eczema BPH - benign prostatic hyperplasia Chronic back pain Chronic deafness Heart disease Hyperlipidemia Procedure/Surgical History Repair of left inguinal hernia (10/09/2023), Colonoscopy (07/21/2023), Esophagogastroduodenoscopy (07/21/2023), Cystoscopy (06/05/2018), Right hemicolectomy (01/19/2016), Colonoscopy (12/30/2015), TRUS (transrectal ultrasound) guided cryoablation of prostate (01/13/2015), Cardiac catheterization, combined right and left heart, Cataract extraction and IOL (implantation of intraocular lens). Medications CeleBREX 100 mg Cap, 100 mg= 1 cap(s), Oral, Daily citalopram 10 mg Tab, Oral, Daily Eliquis 5 mg oral tablet, Oral, BID ferrous sulfate 325 mg oral enteric coated tablet, 325 mg= 1 tab(s), Oral, BID finasteride 5 mg Tab, 5 mg= 1 tab(s), Oral, Daily, 3 refills Flomax 0.4 mg Cap, 0.4 mg= 1 cap(s), Oral, Daily, 3 refills levothyroxine 75 mcg (0.075 mg) Tab, Oral, Daily oxyCODONE 5 mg Tab, 10 mg= 2 tab(s), Oral, q6hr, PRN Protonix 40 mg Tab-DR, 40 mg= 1 tab(s), Oral, BID, 3 refills simvastatin 20 mg Tab, 20 mg= 1 tab(s), Oral, Once a day (at bedtime) valsartan 40 mg Tab, 40 mg= 1 tab(s), Oral, Daily, Not taking Allergies No Known Allergies Social History Alcohol - Denies Alcohol Use, 01/13/2016 Substan (more content not included)...[facility] HospitalComment on above:Result Comment: Electronically Signed By: Jamel MARTINEZ MD\.br\Date and Time Signed: 10/17/23 12:15 ESTIntraOperative Documentson 10-11-2023 IntraOperative [id number]#1.00TIFSouthwest General Health CenterConsent for Anesthesiaon 53-33-8779Thuddfe for [id number]#1.00[facility] HospitalDischarge Instructionson 77-24-3182Gcodkeixd Instructions [id number]#1.00TIFSelect Medical Specialty Hospital - CantonIntraOperative Documentson 70-91-5351IyjieHtsmpzbzc Documents [id number]#1.00[facility] HospitalMain OR Intraoperative Recordon 77-61-3948Vtmf OR Intraoperative Record IntraOp Document Type FT Summary Primary Physician: Jamel MARTINEZ MD Finalized Date/Time: 10/10/23 09:31:29 Pt. Name: AYAD DE LA ROSA/Sex: 1945 Male Med Rec #: [id number] Physician: JUAN CHATMAN, Jamel Mast Financial #: [id number] Pt. Type: A Room/[facility]: [facility]/ Admit/Disch: 10/09/23 06:33:10 - 10/09/23 13:00:00 Institution: Case Times FT Entry 1 Patient Times In Room 10/09/23 09:00:00 Out Room 10/09/23 10:43:00 Procedure Times Start 10/09/23 09:24:00 Stop 10/09/23 10:34:00 Anesthesia Times Start 10/09/23 09:00:00 Stop 10/09/23 10:43:00 Last Modified By: Kristofer DAILEY, Julee Arnett 10/09/23 10:43:16 General Comments: TAP BLOCK DONE BY Kali SOLANO CRNA AT 0916 -Felipa GARCIA RN 10/10/23 Chart opened to review and send charges [facility]oth CSFA Case Attendance FT Entry 1 Entry 2 Entry 3 Case Attendee Lloyd GARCIA, Danny MARTINEZ MD, Ayad Chambers CST Role Performed SLEEVE SETTER Surgeon - Primary SENIOR CONSTRUCTION PROJECT MANAGER/SA Time In 10/09/23 09:00:00 10/09/23 09:00:00 10/09/23 09:00:00 Time Out 10/09/23 10:43:00 10/09/23 10:43:00 10/09/23 10:43:00 Procedure INGUINAL HERNIA REPAIR INGUINAL HERNIA REPAIR INGUINAL HERNIA REPAIR ADULT(Left) ADULT(Left) ADULT(Left) Comments DR. HARDIN SUPERVISING Last Modified By: Kristofer DAILEY, Julee Garcia RN, Julee Garcia RN, Julee Arnett 10/09/23 Aliza Arnett 10/09/23 Aliza P 10/09/23 10:43:20 10:43:20 10:43:20 Entry 4 Entry 5 Case Attendee Kristofer DAILEY, Kaz Mahoney Role Performed Courtroom Deputy - Primary Scrub - Primary Time In 10/09/23 09:00:00 10/09/23 09:00:00 Time Out 10/09/23 10:43:00 10/09/23 10:43:00 Procedure INGUINAL HERNIA REPAIR INGUINAL HERNIA REPAIR ADULT(Left) ADULT(Left) Comments Last Modified By: Kristofer DAILEY, Julee Saavedra RN 10/09/23 Aliza Arnett 10/09/23 10:43:20 10:43:20 Perioperative Protocols FT Pre-Care Text: Implements protective measures prior to operative or invasive procedure, confirms identity before the operative or invasive procedure, verifies operative procedure, surgical site, and laterality Entry 1 Procedure(s) INGUINAL HERNIA REPAIR Patient Identity Birthday, Blood Band, ADULT(Left) Verified (select at ID Band Check, Patient least 2): Participation Consents / H and P Anesthesia Consent, Operative Site Present Verified HandP, Surgery/Procedure Marking Verified Consent Surgical Site Yes Laterality Verified Yes Verified Procedure Verified Yes Correct Patient Yes Position Verified Availability Equipment, Implant, Prep Dry n/a Verified (If Medication Applicable) PreOp Antibiotic Yes Time Out Jamel MARTINEZ MD, Given Participants Danny Solano CRNA, Tamar TOLEDO, Ayad Redmond, Kristofer DAILEY, Joselyn Mcguire Kendall R Time Out Complete 10/09/23 09:23:00 Outcomes Met? Yes Last Modified By: Julee Garcia RN 10/09/23 09:30:55 Post-Care Text: The patient is free from signs and symptoms of injury caused by extraneous objects Allergy Information FT Pre-Care Text: Verifies allergies Entry 1 Allergies Reviewed? Yes Allergies Reviewed Self/Patient With Outcomes Met? Yes Last Modified By: Julee Garcia RN 10/09/23 09:31:01 Post-Care Text: The patient received appropriate medication(s) safely administered during the perioperative period Surgical Procedures FT Entry 1 Procedure Description Procedure INGUINAL HERNIA REPAIR Modifiers Left ADULT Surgeon Description LEFT INGUINAL HERNIA REPAIR WITH MESH Primary Procedure Yes Primary Surgeon Jamel MARTINEZ MD Start 10/09/23 09:24:00 Stop 10/09/23 10:34:00 Anesthesia Type General Surgical Service General Wound Class 1 - Clean Last Modified By: Julee Garcia RN 10/09/23 10:34:46 General Case Data FT Pre-Care Text: Classifies surgical wound, implements aseptic technique, initiates traffic control Entry 1 Case Information OR OR 6 FT Case Level Level 4 Wound Class 1 - Clean Specialty General ASA Class 3 Preop Diagnosis LEFT INGUINAL HERNIA Postop Same As Preop Yes Postop Diagnosis LEFT INGUINAL HERNIA Outcomes Met? Yes Last Modified By: Corazon Pate CST 10/10/23 09:28:53 Post-Care Text: The patient is free from signs and symptoms of infection Skin Assessment (Pre Procedure) FT Pre-Care Text: Implements protective measures to prevent skin/ tissue injury due to thermal or mechanical sources Evaluates for signs and symptoms of physical injury to skin and tissue Entry 1 Skin Integrity Intact, Forbes, Warm, and Skin Abnormality No Dry Outcomes Met? Yes Last Modified By: Kristofer DAILEY, Julee Poolenicnakul Arnett 10/09/23 09:31:23 Post-Care Text: The patient is free from signs and symptoms of injury caused by extraneous objects Patient Positioning FT Pre-Care Text: Identifies physical alterations that require additional precautions for procedure-specific positioning, verifies presence of prosthetics or josh (more content not included)...[facility] HospitalPreoperative Documentson [id number] [id number] Orrville HospitalProgress Note-Physicianon [id number] Note-Physician Patient: AYAD DE LA ROSA Age: 78 years Sex: Male : 1945 Associated Diagnoses: None Author: MD Wilfred, Frieda Ferrer Postoperative Information Postoperative disposition: Postoperative disposition: To PACU. Optimetrix number: Optimetrix number [id number]. Anesthetic utilized: General. Health Status Allergies: Allergic Reactions (Selected) No Known Allergies Physical Examination VS/Measurements Pain Assessment: Controlled. General: Awake, Alert, Appropriate. Respiratory: Adequate air exchange. Cardiovascular: Stable, Normal peripheral perfusion. Neurological: Normal sensory function, Normal motor function. Assessment Anesthetic outcome No anesthetic complications noted. Adequate pain relief. able to void without difficulty, able to ambulate with assist, tolerating PO intake, no N/V. Review / Management Condition: Stable. Plan Transfer/Discharge: Transfer/Discharge Discharge when meets criteria ( To home ).[facility] HospitalComment on above:Result Comment: Electronically Signed By: MD Hardin Ahmad F\.br\Date and Time Signed: 10/10/23 15:19 ESTProgress Note-PhysicianPatient: AYAD DE LA ROSA Age: 78 years Sex: Male : 1945 Associated Diagnoses: None Author: MD Hardin Ahmad F Preoperative Information Time patient last ate or drank:=== (npo 8 hours) Anesthesia history: Patient history: No prior anesthesia problems. Re-evaluation prior to induction: Completed, Initial evaluation reviewed. Review of Systems Respiratory: No shortness of breath. Cardiovascular: No chest pain. Hematology/Lymphatics: No bruising tendency, No bleeding tendency. Health Status Allergies: Allergic Reactions (All) No Known Allergies Current medications: (Selected) Prescriptions Prescribed Flomax 0.4 mg Cap: 0.4 mg = 1 cap(s), Oral, Daily, # 90 cap(s), Refills(s) 3, [id number] 170, cm, 12/25/20 11:04:00 EDT, Height/Length Dosing, 95, kg, 12/25/20 11:04:00 EDT, WeightDosing Protonix 40 mg Tab-DR: 40 mg = 1 tab(s), Oral, BID, # 90 tab(s), Refills(s) 3, [id number], 168.9, cm, 07/21/23 8:34:00 EST, Height/Length Dosing, 85, kg, 07/21/23 8:34:00 EST, Weight Dosing acetaminophen-oxycodone 325 mg-5 mg Tab: 1 tab(s), Oral, q6hr Pain, 18 tab(s), Refill(s) 0, not to exceed 4000 mg acetaminophen per day take with food or milk, [facility]/pharmacy #[id number], 169, cm, 09/19/23 13:10:00 EST, Height/Length Dosing, 89, kg, 09/19/23 13:10:00 EST, Weight Dosing finasteride 5 mg Tab: 5 mg = 1 tab(s), Oral, Daily, # 90 tab(s), Refills(s) 3, [id number], 170, cm, 12/25/20 11:04:00 EDT, Height/Length Dosing, 95, kg, 12/25/20 11:04:00 EDT, Weight Dosing Documented Medications Documented CeleBREX 100 mg Cap: 100 mg = 1 cap(s), Oral, Daily, Refills(s) 0, Pain Eliquis 5 mg oral tablet: mg tab(s), Oral, BID, Refills(s) 0, Blood Thinner citalopram 10 mg Tab: mg tab(s), Oral, Daily, Refills(s) 0, Depression ferrous sulfate 325 mg oral enteric coated tablet: 325 mg = 1 tab(s), Oral, BID, Refills(s) 0, Prophylaxis levothyroxine 75 mcg (0.075 mg) Tab: mcg tab(s), Oral, Daily, Refills(s) 0, Thyroid simvastatin 20 mg Tab: 20 mg = 1 tab(s), Oral, Once a day (at bedtime), High cholesterol valsartan 40 mg Tab: 40 mg = 1 tab(s), Oral, Daily, Refills(s) 0, High blood pressure Problem list: All Problems Deaf b/l needs sign language / SNOMED CT 96101053 / Confirmed high cholesterol / SNOMED CT 3943083081 / Confirmed Mass of colon / SNOMED CT 9574484809 / Confirmed CKD (chronic kidney disease) stage 3, GFR 30-59 ml/min / SNOMED CT 2047823353 / Confirmed BPH with urinary obstruction / SNOMED CT 6824664578 / Confirmed Elevated PSA / SNOMED CT 9969667921 / Confirmed Acquired deaf mutism. / SNOMED CT 8749781007 / Confirmed Anemia in chronic kidney disease / SNOMED CT 0700436893 / Confirmed Coronary atherosclerosis / SNOMED CT 9733417898 / Confirmed Cardiomyopathy / SNOMED CT 764359249 / Confirmed Carotid bruit / SNOMED CT 7740009904 / Confirmed Diaphragmatic hernia / SNOMED CT 44392454 / Confirmed Diverticulitis of colon / SNOMED CT 603384305 / Confirmed Eczema / SNOMED CT 78018870 / Confirmed First degree atrioventricular block / SNOMED CT 471717670 / Confirmed Hyperparathyroidism due to renal insufficiency / SNOMED CT 74336897 / Confirmed Hypothyroidism / SNOMED CT 97754105 / Confirmed Iron deficiency anemia / SNOMED CT 899258348 / Confirmed Left anterior fascicular block / SNOMED CT 96907380 / Confirmed Lumbar spondylosis / SNOMED CT 022990105 / Confirmed Obesity / SNOMED CT 3477612414 / Confirmed Orthostatic hypotension / SNOMED CT 15231262 / Confirmed Paroxysmal atrial fibrillation / SNOMED CT 856889417 / Confirmed Tremor / SNOMED CT 18105757 / Confirmed Congestive heart failure / SNOMED CT 98355927 / Confirmed Hyperlipidemia / SNOMED CT 68004977 / Confirmed Personal history of colonic polyps / SNOMED CT 9873779745 / Confirmed Epigastric pain / SNOMED CT 656627452 / Confirmed HI (mitral incompetence) / SNOMED CT 85297398 / Confirmed Abdominal pain, generalized / SNOMED CT 529913806 / Confirmed Chronic GERD / SNOMED CT 363743843 / Confirmed Other dysphagia / SNOMED CT 44479681 / Confirmed Incarcerated left inguinal hernia / SNOMED CT 174956120 / Confirmed Pancreatic cyst / SNOMED CT 31631853 / Confirmed Abnormal abdominal CT scan / SNOMED CT 3097292811 / Confirmed BMI 31.0-31.9,adult / SNOMED CT 058854508 / Confirmed Reducible left inguinal hernia / SNOMED CT 971348765 / Confirmed Resolved: Chronic back pain / SNOMED CT 718475080 Resolved: BPH - benign prostatic hyperplasia / SNOMED CT 7874076236 Resolved: Acute eczema / SNOMED CT 8981305088 Resolved: Heart disease / SNOMED CT 26269791 Resolved: Chronic deafness / SNOMED CT 363738659 Resolved: Hyperlipidemia / SNOMED CT 03242870 Canceled: Diabetes mellitus / SNOMED CT 641502436 Histories Past Medical History: Resolved Chronic back pain (493120208): Resolved. BPH - benign prostatic hyperplasia (6913430166): Resolved. Acute eczema (988441 (more content not included)...[facility] HospitalComment on above:Result Comment: Electronically Signed By: MD Wilfred, Frieda Ferrer\.br\Date and Time Signed: 10/10/23 15:18 ESTConsent for Treatmenton [id number] for [id number]#1.00TIFF [facility] HospitalConsultation Noteon [id number] Note [id number]#1.00TIFFNoAtrium Health Kings Mountainer [facility] Medical CenterDischarge Instructionson [id number] Instructions AYAD DE LA ROSA :1945 Visit Date:10/09/2023 Inpatient Discharge Instructions Your Care Team Admitting Physician - Jamel MARTINEZ MD Referring Physician - Jamel MARTINEZ MD Reason for Your Visit LEFT INGUINAL HERNIA Your Diagnosis Acute postoperative pain of groin Incarcerated left inguinal hernia Other acute postprocedural pain This Is Your Medications List acetaminophen-oxycodone (acetaminophen-oxycodone 325 mg-5 mg Tab) apixaban (Eliquis 5 mg oral tablet) celecoxib (CeleBREX 100 mg Cap) citalopram (citalopram 10 mg Tab) ferrous sulfate (ferrous sulfate 325 mg oral enteric coated tablet) finasteride (finasteride 5 mg Tab) levothyroxine (levothyroxine 75 mcg (0.075 mg) Tab) pantoprazole (Protonix 40 mg Tab-DR) simvastatin (simvastatin 20 mg Tab) tamsulosin (Flomax 0.4 mg Cap) valsartan (valsartan 40 mg Tab) Procedure History Colonoscopy (07/21/2023), Esophagogastroduodenoscopy (07/21/2023), Cystoscopy (06/05/2018), Right hemicolectomy (01/19/2016), Colonoscopy (12/30/2015), TRUS (transrectal ultrasound) guided cryoablation of prostate (01/13/2015), Cardiac catheterization, combined right and left heart, Cataract extraction and IOL (implantation of intraocular lens). What to do next Instructions From Your Doctor Event Name Event Result Discharge Instructions Freetext may shower tomorrow, remove dressing and leave open to air; no tub baths for 10 days, no driving while taking the Percocet; no lifting > 10 lbs for 4 weeks. resume Eliquis tomorrow. Discharge Activity Arrange for a responsible adult supervision for 24 hours, Expect mild pain, Expect minimal amount of drainage and/or bleeding Discharge Restrictions No driving, Do not operate machinery or tools, Do not make important decisions for 24 hours, Do notdrink alcoholic beverages for 24 hours Discharge Diet(s) Regular Call Your Doctor For Persistent or heavy bleeding, Temperature above 101.5 degrees, Redness, swelling, or pus at operative site, Severe pain at the operative site, Persistent vomiting Wound Care Keep incision dry, Remove dressing as instructed Remove Dressing On 1 Discharge Instructions Discharge Instructions New Follow Up Appointments after Discharge Follow Up with Jamel MARTINEZ When: Within 7 to 10 days Where: [facility], [address] [address]- Business (1) Medications What How Much When Why Instructions Next Dose New acetaminophen-oxycodone (acetaminophen-oxycodone 325 mg-5 mg Tab) 1 Tablets By Mouth Every 6 hours as needed for Pain Acute postoperative pain of groin not to exceed 4000 mg acetaminophen per daytake with food or milk Pickup at [facility] #[id number] Unchanged apixaban (Eliquis 5 mg oral tablet) By Mouth 2 times a day Unchanged celecoxib (CeleBREX 100 mg Cap) 1 Capsules By Mouth Every day Unchanged citalopram (citalopram 10 mg Tab) By Mouth Every day Unchanged ferrous sulfate (ferrous sulfate 325 mg oral enteric coated tablet) 1 Tablets By Mouth 2 times a day Unchanged finasteride (finasteride 5 mg Tab) 1 Tablets By Mouth Every day Unchanged levothyroxine (levothyroxine 75 mcg (0.075 mg) Tab) By Mouth Every day Unchanged pantoprazole (Protonix 40 mg Tab-DR) 1 Tablets By Mouth 2 times a day Unchanged simvastatin (simvastatin 20 mg Tab) 1 Tablets By Mouth Once a day (at bedtime) Unchanged tamsulosin (Flomax 0.4 mg Cap) 1 Capsules By Mouth Every day Unchanged valsartan (valsartan 40 mg Tab) 1 Tablets By Mouth Every day Pharmacy Information [facility]/pharmacy #[id number]: [address], [place] [phone] Devices Implanted/Removed This Visit Notice: You have devices implanted this visit that may not be MRI compatible. Implanted INGUINAL HERNIA REPAIR ADULT Other MESH MARLEX 2` X 4` ([id number]) 10/09/2023, Unknown - FRANCESCA: {01}[id number]{01}[id number]{17}[id number]{10}[id number] Education Materials Laparoscopic Inguinal Hernia Repair, Adult, Care After The following information offers guidance on how to care for yourself after your procedure. Your health care provider may also give you more specific instructions. If you have problems or questions, contact your health care provider. What can I expect after the procedure? After the procedure, it is common to have: ? Pain. ? Swelling and bruising around the incision area. ? Scrotal swelling, in males. ? Some fluid or blood draining from your incisions. Follow these instructions at home: Medicines ? Take lolj-xfi-yjtffat and prescription medicines only as told by your health care provider. ? Ask your health care provider if the medicine prescribed to you: ? Requires you to avoid driving or using machinery. ? Can cause constipation. You may need to take these actions to prevent or treat constipation: ? Drink enough fluid to keep your urine pale yellow. ? James (more content not included)...[facility] HospitalComment on above:Result Comment: Electronically Signed By: Mirna DAILEY, Sami Garcia\.br\Date and Time Signed: 10/09/23 11:00 ESTH&P Updateon 10-09-2023H&P Update [id number]#1.00TIFFNoKettering Health Main CampusInpatient Patient Summaryon [id number] Patient Summary [address] [address] [facility] Clinical Discharge Instructions PERSON INFORMATION Name: AYAD DE LA ROSA [facility]#:[id number] PHYSICIANS Admitting Physician: Jamel MARTINEZ MD Attending Physician: Jamel MARTINEZ MD PCP: Marbella CHATMAN, Paulina Discharge Diagnosis: Incarcerated left inguinal hernia; Other acute postprocedural pain Comment: PATIENT EDUCATION INFORMATION Instructions: Medication Leaflets: Follow up: With: Address: When: Jamel MARTINEZ [address] [place] [address], [address], [address] [address] Business (1) Within 7 to 10 days MEDICATION LIST New Medications [facility]/pharm[facility] #[id number], [address], [place] [id number], [phone] acetaminophen-oxycodone (acetaminophen-oxycodone 325 mg-5 mg Tab) 1 Tablets By Mouth every 6 hours as needed Pain. not to exceed 4000 mg acetaminophen per day take with food or milk. Refills: 0. Medications to Continue with No Changes Other Medications apixaban (Eliquis 5 mg oral tablet) By Mouth 2 times a day. celecoxib (CeleBREX 100 mg Cap) 1 Capsules By Mouth every day. citalopram (citalopram 10 mg Tab) By Mouth every day. ferrous sulfate (ferrous sulfate 325 mg oral enteric coated tablet) 1 Tablets By Mouth 2 times a day. finasteride (finasteride 5 mg Tab) 1 Tablets By Mouth every day. Refills: 3. levothyroxine (levothyroxine 75 mcg (0.075 mg) Tab) By Mouth every day. pantoprazole (Protonix 40 mg Tab-DR) 1 Tablets By Mouth 2 times a day. Refills: 3. simvastatin (simvastatin 20 mg Tab) 1 Tablets By Mouth once a day (at bedtime). tamsulosin (Flomax 0.4 mg Cap) 1 Capsules By Mouth every day. Refills: 3. valsartan (valsartan 40 mg Tab) 1 Tablets By Mouth every day. Comment:[facility]Main OR PACU I Recordon [id number] OR PACU I RecordPACU Phase I Document Type FT Summary Primary Physician: Jamel MARTINEZ MD Finalized Date/Time: 10/09/23 12:02:36 Pt. Name: KATTYAYAD/Sex: 1945 Male Med Rec #: [id number] Physician: Jamel MARTINEZ MD Financial #: [id number] Pt. Type: A Room/Bed: [facility]/ Admit/Disch: 10/09/23 06:33:10 - Institution: Case Times PACU I FT Pre-Care Text: Identifies barriers to communication and implements measures to provide psychological support Develops individualized plan of care, and ensures continuity of care Maintains patient's dignity and privacy, and maintains patient confidentiality Identifies and reports philosophical, cultural, and spiritual beliefs and values Identifies individual values and wishes concerning care Implements aseptic technique, and administers prescribed antibiotic therapy and immunizing agents as ordered Evaluates postoperative tissue perfusion Implements thermoregulation measures, and monitors body temperature Evaluates postoperative respiratory status Evaluates postoperative cardiac status Evaluates postoperative neurological status Assesses pain control, collaborated in initiating patient-controlled analgesia and implements alternative methods of pain control Verifies allergies, administers prescribed medications and solutions, evaluates response to medications Entry 1 In PACU I 10/09/23 10:45:00 Discharge from PACU 10/09/23 11:20:00 I Outcomes Met? Yes Last Modified By: Angie Flannery RN 10/09/23 12:02:19 Post-Care Text: The patient demonstrates knowledge of the expected response to the operative or invasive procedure The patient's care is consistent with the individualized perioperative plan of care The patient's rightto privacy is maintained The patient's value system, lifestyle, ethnicity, and culture are considered, respected, and incorporated into the perioperative plan of care The patient participates in decisions affecting his or her perioperative plan of care The patient is free from signs and symptoms of infection The patient has wound/tissue perfusion consistent with or improved from baseline levels established preoperatively The patient is at or returning to normothermia at the conclusion of the immediate postoperative period The patient's respiratory function is consistent with or improved from baseline levels established preoperativelyThe patient's cardiovascular status is consistent with or improved from baseline levels established preoperatively The patient's cardiovascular status is consistent with or improved from baseline levels established preoperatively The patient demonstrates and/or reports adequate pain control throughout the perioperative period The patient received appropriate medication(s), safely administered during the perioperativeperiod Acuity Level PACU I FT Entry 1 Start Time 10/09/23 10:45:00 Stop Time 10/09/23 11:20:00 Acuity Level Acuity Level I Last Modified By: Angie Flannery RN 10/09/23 12:02:32 Finalized By: Angie Flannery RN Document Signatures Signed By: Angie Flannery RN 10/09/23 12:02[facility]Main OR PACU II Recordon [id number] OR PACU II RecordPACU Phase II Document Type FT Summary Primary Physician: Jamel MARTINEZ MD Finalized Date/Time: 10/09/23 13:41:12 Pt. Name: KATTYAYAD/Sex: 1945 Male Med Rec #: [id number] Physician: Jamel MARTINEZ MD Financial #: [id number] Pt. Type: A Room/Bed: [place] [address] Admit/Disch: 10/09/23 06:33:10 - Institution: Case Times PACU II FT Pre-Care Text: Identifies barriers to communication and implements measures to provide psychological support and determines knowledge level Develops individualized plan of care, and ensures continuity of care Maintains patient's dignity and privacy, and maintains patient confidentiality Identifies and reports philosophical, cultural, and spiritual beliefs and values Identifies individual values and wishes concerning care administers prescribed antibiotic therapy and immunizing agents as ordered, Evaluates postoperative tissue perfusion Implements thermoregulation measures, and monitors body temperature Evaluates postoperative respiratory statusEvaluates postoperative cardiac status Evaluates postoperative neurological status Assesses pain control, collaborated in initiating patient-controlled analgesia and implements alternative methods of pain control Verifies allergies, administers prescribed medications and solutions, evaluates response to medications Entry 1 In PACU II 10/09/23 11:20:00 Discharge from PACU 10/09/23 13:00:00 II Outcomes Met? Yes Last Modified By: Sami Bradley RN 10/09/23 13:41:10 Post-Care Text: The patient demonstrates knowledge of the expected response to the operative or invasive procedure The patient's care is consistent with the individualized perioperative plan of care The patient's rightto privacy is maintained The patient's value system, lifestyle, ethnicity, and culture are considered, respected, and incorporated into the perioperative plan of care The patient participates in decisions affecting his or her perioperative plan of care. The patient is free from signs and symptoms of infection The patient has wound/tissue perfusion consistent with or improved from baseline levels established preoperatively The patient is at or returning to normothermia at the conclusion of the immediate postoperative period The patient's respiratory function is consistent with or improved from baseline levels established preoperativelyThe patient's cardiovascular status is consistent with or improved from baseline levels established preoperatively The patient's neurological status is consistent with or improved from baseline levels established preoperatively The patient demonstrates and/or reports adequate pain control throughout the perioperative period The patient received appropriate medication(s), safely administered during the perioperativeperiod Finalized By: Sami Bradley RN Document Signatures Signed By: Sami Bradley RN 10/09/23 13:41NormAv[facility] SystemMain OR Preoperative Recordon [id number] OR Preoperative RecordPreOp Document Type FT Summary Primary Physician: Jamel MARTINEZ MD Finalized Date/Time: 10/09/23 09:29:02 Pt. Name: AYAD DE LA ROSA /Sex: 1945 Male Med Rec #: [id number] Physician: Jamel MARTINEZ MD Financial #: [id number] Pt. Type: A Room/Bed: [place] [address] Admit/Disch: 10/09/23 06:33:10 - Institution: Case Times PreOp FT Pre-Care Text: Verifies consent for planned procedure, identifies individual values and wishes concerning care, includes family members in perioperative teaching Entry 1 Patient Times. In Pre Surgery 10/09/23 06:40:00 Out Pre Surgery 10/09/23 08:58:00 Outcomes Met? Yes Last Modified By: Julee Garcia RN 10/09/23 09:29:01 Post-Care Text: The patient participates in decisions affecting his or her perioperative plan of care Finalized By: Julee Garcia RN Document Signatures Signed By: Julee Garcia RN 10/09/23 09:29NoKettering Health Main Campus Monitor Recordon [id number] Record [id number] Medical Specialty Hospital - CantonMonitor [id number]#1.00TIFSouthwest General Health CenterOperative Reporton [id number] ReportSURGERY DATE: 10/09/2023 PREOPERATIVE DIAGNOSIS: Control of postoperative pain POSTOPERATIVE DIAGNOSIS: Control of postoperative pain OPERATION: Bilateral transversus abdominis plane (TAP) block utilizing ultrasound guidance ANESTHESIA: The patient was under a general anesthesia in the Operating Room PROCEDURE: The patient was interviewed and examined. The anesthesia options were discussed including a bilateral TAP block for postoperative analgesia. The discussion included the procedure, risks and benefits and alternatives to the procedure. The patient's questions were all answered and the patient elected to proceed with the bilateral TAP block for postoperative pain relief. After the patientunderwent general anesthesia, both lateral aspects at the abdomen were prepped and draped in a sterile fashion using ChloraPrep. Then with ultrasound guidance using a 21 gauge 100 mm needle, the transversus abdominis plane was located on both sides. A mixture of 20 mL of Exparel with 30 mL of 0.25% Bupivacaine, 40 mL of that mixture was injected on each side after multiple attempts at aspiration.Surgery then proceeded under general anesthesia. RADHA Ennis Dictated: 10/09/2023 [id number] Transcribed: 10/09/2023NoKettering Health Main CampusComment on above:Result Comment: Electronically Signed By: Danny Solano CRNA\.br\Date and Time Signed: 10/09/2415:49 ESTOperative ReportSURGERY DATE: 10/09/2023 PREOPERATIVE DIAGNOSIS: Left inguinal hernia POSTOPERATIVE DIAGNOSIS: Indirect left inguinal hernia OPERATION: Left inguinal herniorrhaphy with Bard 5 x 10 cm polypropylene mesh insertion ANESTHESIA: General with endotracheal as well as left-sided TAP block ESTIMATED BLOOD LOSS: Less than 10 mL INDICATIONS AND CONSENT: The patient is a 78 year old male with history of enlarging symptomatic partially reducible left inguinal hernia. Indications, risks, benefits, alternatives of proceeding with herniorrhaphy with mesh insertion were explained extensively to the patient including the risk of b leeding, infection, scarring, pain, recurrent hernia, nerve injury, testicular injury, blood clot, pulmonary embolus, heart attack, anesthetic complications, need for further surgery or mesh removal.All of his questions were answered. Informed consent was obtained. PROCEDURE: The patient was brought to the Operating Room and placed in the supine position. Generalanesthesia was induced. Left-sided TAP block was performed. The patient was then prepped and drapedin the usual sterile fashion. Left groin incision was made in the area of the skin crease and carried down through the subcutaneous tissue using sharp dissection as well as electrocautery. Manuela's fascia was divided. The external oblique was opened along the direction of its fibers down through the external inguinal ring. The cord structures were mobilized and retracted. There was an indirect hernia as well as a cord lipoma which was extending down into the scrotum. This was reduced back through the internal ring. There was weakness of the internal ring which was then plicated with 2-0 Prolene interrupted sutures. The wound was irrigated. There was good hemostasis. There was no evidence ofdirect hernia. A 5 x 10 cm Bard mesh was then trimmed and a keyhole was created. It was placed on the floor of the inguinal canal. The arms were placed around the cord structures. The mesh was then secured circumferentially using interrupted 3-0 Vicryl sutures including around the arms which care was taken to avoid undue tension on the cord structures. The wound was then irrigated with antibiotic saline. There was good hemostasis. The external oblique, which was very attenuated, was closed witha running 3-0 Vicryl suture. The subcutaneous tissues were then infiltrated with the remaining Exparel solution. Manuela's fascia was reapproximated with interrupted 3-0 Monocryl suture. The skin was then closed with a running 4-0 subcuticular Monocryl suture and skin glue. Sterile pressure dressingwas applied. Sponge and needle counts were correct x3 per Nursing personnel. The patient tolerated the procedure well, was extubated and sent to Recovery Room in good condition. Jamel Martinez M.D. FACS lr Dictated: 10/09/2023 [id number] Transcribed: 10/09/2023 cc:Paulina Tyson M.D.[facility] HospitalComment on above:Result Comment: Electronically Signed By: Jamel MARTINEZ MD\.br\Date and Time Signed: 10/09/23 13:52 ESTOutpatient Surgery Discharge Instructionon 10-09-2023 Outpatient Surgery Discharge Instruction [address] [address] Patient Discharge Instructions PERSON INFORMATION Name: AYAD DE LA ROSA Date of : 1945 Current Date: 10/09/2023 10:55:16 PHYSICIANS Admitting Physician: Jamel MARTINEZ MD Discharge Diagnosis: Incarcerated left inguinal hernia; Other acute postprocedural pain AYAD DE LA ROSA has been given the following list of follow-up instructions, prescriptions, and patient education materials: PATIENT FOLLOW-UP INFORMATION Diet: Regular Discharge Activity: Arrange for a responsible adult supervision for 24 hours, Expect mild pain, Expect minimal amount of drainage and/or bleeding Discharge Restrictions: No driving, Do not operate machinery or tools, Do not make important decisions for 24 hours, Do not drink alcoholic beverages for 24 hours Call Your Doctor For: Persistent or heavy bleeding, Temperature above 101.5 degrees, Redness, swelling, or pus at operative site, Severe pain at the operative site, Persistent vomiting Wound Care Instructions: Keep incision dry, Remove dressing as instructed Remove Your Dressing In 1 Days Additional Instructions: may shower tomorrow, remove dressing and leave open to air; no tub baths for 10 days, no driving while taking the Percocet; no lifting > 10 lbs for 4 weeks. resume Eliquistomorrow. IF UNABLE TO CONTACT YOUR PHYSICIAN AND YOU FEEL IT IS AN EMERGENCY, GO TO THE NEAREST EMERGENCY ROOM OR CALL 911 KATTY Joseph JAMES A, have received the attached patient education materials/instructions and have verbalized understanding: May we do a follow up call? Yes No I was present when discharge instructions were given Patient Signature Date Clinican/Nurse Signature Date Follow up: With: Address: When: [address], [address], [place] [id number] [facility] (1) Within 7 to 10 days Pharmacy Information: You may receive a survey from [employer] asking you to rate your care experience. Your feedback is important and will help us understand what we do well and how we can improve the quality of care we provide to you, your loved ones and our community. It?s an honor to serve you. Thank you for choosing [facility] HERE ARE THE MEDICATION CHANGES THAT OCCURRED DURING YOUR HOSPITAL STAY New Medications [facility]/pharm[facility] #[id number], [address], [place] [id number], [phone] acetaminophen-oxycodone (acetaminophen-oxycodone 325 mg-5 mg Tab) 1 Tablets By Mouth every 6 hours as needed Pain. not to exceed 4000 mg acetaminophen per day take with food or milk. Refills: 0. Medications to Continue with No Changes Other Medications apixaban (Eliquis 5 mg oral tablet) By Mouth 2 times a day. celecoxib (CeleBREX 100 mg Cap) 1 Capsules By Mouth every day. citalopram (citalopram 10 mg Tab) By Mouth every day. ferrous sulfate (ferrous sulfate 325 mg oral enteric coated tablet) 1 Tablets By Mouth 2 times a day. finasteride (finasteride 5 mg Tab) 1 Tablets By Mouth every day. Refills: 3. levothyroxine (levothyroxine 75 mcg (0.075 mg) Tab) By Mouth every day. pantoprazole (Protonix 40 mg Tab-DR) 1 Tablets By Mouth 2 times a day. Refills: 3. simvastatin (simvastatin 20 mg Tab) 1 Tablets By Mouth once a day (at bedtime). tamsulosin (Flomax 0.4 mg Cap) 1 Capsules By Mouth every day. Refills: 3. valsartan (valsartan 40 mg Tab) 1 Tablets By Mouth every day. PATIENT EDUCATION INFORMATION Instructions: Medication Leaflets:[facility] HospitalPatient Education - Texton [id number] Education - Text Gastroenterology Laparoscopic Inguinal Hernia Repair, Adult, Care After The following information offers guidance on how to care for yourself after your procedure. Your health care provider may also give you more specific instructions. If you have problems or questions, contact your health care provider. What can I expect after the procedure? After the procedure, it is common to have: ? Pain. ? Swelling and bruising around the incision area. ? Scrotal swelling, in males. ? Some fluid or blood draining from your incisions. Follow these instructions at home: Medicines ? Take rymw-eys-srpdvge and prescription medicines only as told by your health care provider. ? Ask your health care provider if the medicine prescribed to you: ? Requires you to avoid driving or using machinery. ? Can cause constipation. You may need to take these actions to prevent or treat constipation: ? Drink enough fluid to keep your urine pale yellow. ? Take ypuf-qni-ixmkcoo or prescription medicines. ? Eat foods that are high in fiber, such as beans, whole grains, and fresh fruits and vegetables. ? Limit foods that are high in fat and processed sugars, such as fried or sweet foods. Incision care ? Follow instructions from your health care provider about how to take care of your incisions. Makesure you: ? Wash your hands with soap and water for at least 20 seconds before and after you change your bandage (dressing). If soap and water are not available, use hand rivet hammer machine operator. ? Change your dressing as told by your health care provider. ? Leave stitches (sutures), skin glue, or adhesive strips in place. These skin closures may need tostay in place for 2 weeks or longer. If adhesive strip edges start to loosen and curl up, you may trim the loose edges. Do not remove adhesive strips completely unless your health care provider tellsyou to do that. ? Check your incision area every day for signs of infection. Check for: ? More redness, swelling, or pain. ? More fluid or blood. ? Warmth. ? Pus or a bad smell. ? Wear loose, soft clothing while your incisions heal. Managing pain and swelling If directed, put ice on the painful or swollen areas. To do this: ? Put ice in a plastic bag. ? Place a towel between your skin and the bag. ? Leave the ice on for 20 minutes, 2?3 times a day. ? Remove the ice if your skin turns bright red. This is very important. If you cannot feel pain, heat, or cold, you have a greater risk of damage to the area. Activity ? Do not lift anything that is heavier than 10 lb (4.5 kg), or the limit that you are told, until your health care provider says that it is safe. ? Ask your health care provider what activities are safe for you. A lot of activity during the first week after surgery can increase pain and swelling. For 1 week after your procedure: ? Avoid activities that take a lot of effort, such as exercise or sports. ? You may walk and climb stairs as needed for daily activity, but avoid long walks or climbing stairs for exercise. General instructions ? If you were given a sedative during the procedure, it can affect you for several hours. Do not drive or operate machinery until your health care provider says that it is safe. ? Do not take baths, swim, or use a hot tub until your health care provider approves. Ask your health care provider if you may take showers. You may only be allowed to take sponge baths. ? Do not use any products that contain nicotine or tobacco. These products include cigarettes, chewing tobacco, and vaping devices, such as e-cigarettes. If you need help quitting, ask your health care provider. ? Keep all follow-up visits. This is important. Contact a health care provider if: ? You have any of these signs of infection: ? More redness, swelling, or pain around your incisions or your groin area. ? More fluid or blood coming from an incision. ? Warmth coming from an incision. ? Pus or a bad smell coming from an incision. ? A fever or chills. ? You have more swelling in your scrotum, if you are male. ? You have severe pain and medicines do not help. ? You have abdominal pain or swelling. ? You cannot urinate or have a bowel movement. ? You faint or feel dizzy. ? You have nausea and vomiting. Get help right away if: ? You have redness, warmth, or pain in your leg. ? You have chest pain. ? You have problems breathing. These symptoms may represent a serious problem that is an emergency. Do not wait to see if the symptoms will go away. Get medical help right away. Call your local emergency services (911 in the [place] Do not drive yourself to the hospital. Summary ? Pain, swelling, and bruising are common after the procedure. ? Check your incision area every day for signs of infection, such as more redness, swelling, or pain. ? (more content not included)...NormalAultman Orrville HospitalConsultation Noteon [id number] Note [id number]#1.00TIFFNormAvita Health SystemOutside Recordson 48-69-7348Qycpprn Records [id number] Health SystemConsultation Noteon 94-88-7907Inxkyboipwxm Note [id number]#1.00TIFNormAvita Health SystemConsultation Noteon 85-86-7668Lmubhfqprdak Note [id number] Jewish HospitalBMPon 51-35-8266Amhgy gap [Moles/Vol]10 mmol/LNormal6-16[facility] HospitalComment on above:Performed By: #### [id number], 8087494, [id number] #### [facility] [address], [place] [address]RCM/Creat Ratio10 No DccxrYloksw18-40MujesdAultman Orrville HospitalComment on above:Performed By: #### [id number], [id number], [id number] #### [facility] [address], [place] [address]Pkjhjyx [Mass/Vol]9.0 mg/dLNormal8.9-11.1Fisher University Of Maryland Medical CenterComment on above:Performed By: #### [id number], 7015484, [id number] #### [facility] [address], [place] [address]Yflpajoa [Moles/Vol]105 mmol/QPrgcps791-387PjmnwfAultman Orrville HospitalComment on above:Performed By: #### 1907790, 9070952, [id number] #### [facility] [address], [place] [address]ZD3 [Moles/Vol]28 mmol/IVcsssq06-15CyqpxwAultman Orrville Hospital Comment on above:Performed By: #### 9389249, 1168995, [id number] #### [facility] [address], [place] [address]Indkedohpj [Mass/Vol]1.6 mg/dLHigh0.5-1.3FRegency Hospital CompanyComment on above:Performed By: #### 4948807, 9970740, [id number] #### [facility] [address], [place] [address]Spyqlyn [Mass/Vol]100 mg/nEBoyzbn70-693LypjaaAultman Orrville HospitalComment on above:Performed By: #### 2180377, 6633404, 81580757 #### [facility] [address] [place] [address]Kebguxwbv [Moles/Vol]4.0 mmol/LNormal3.5-5.3FRegency Hospital CompanyComment on above:Performed By: #### 3829068, 2269160, 14738990 #### [facility] [address] [place] [address]Vmofqz [Moles/Vol]139 mmol/GCkbmeh821-862XkzbpmAultman Orrville HospitalComment on above:Performed By: #### 6611178, 8132756, 35105353 #### [facility] [address] [place] [address]Wslr nitrogen [Mass/Vol]16 mg/dLNormal5-21[facility] Orrville HospitalComment on above:Performed By: #### 8924648, 9596670, 71969721 #### [facility] [address] [place] [address]EKS w/ Auto Diffon 19-21-8504Zvhojbkv Absolute0.0 E9/LNormal 0.0-0.2FRegency Hospital CompanyComment on above:Performed By: #### 4235246, 8146477, [id number] #### [facility] [address] [place] [address]Jgelcaeeb/100 WBC (Bld)0.5 %Normal0.0-2.0[facility] Orrville HospitalComment on above:Performed By: #### 4137521, 3289167, 96950957 #### [facility] [address] [place] [address]Amn Absolute0.4 E9/LNormal0.0-0.5FRegency Hospital Company Comment on above:Performed By: #### 9431907, 1949690, [id number] #### [facility] [address] [place] [address]Fpflqmtqbqq/100 WBC (Bld)5.1 %Normal0.0-8.0[facility] Orrville HospitalComment on above:Performed By: #### 5317022, 9714546, 05854270 #### [facility] [address] [place] [address]Lhaiuzcmgfq distribution width (RBC) [Ratio]14.1 %Normal 10.9-14.2FRegency Hospital CompanyComment on above:Performed By: #### 8136186, 4058582, 58935412 #### [facility] [address] [place] [address]Dgyfnitqqi (Bld) [Volume fraction]46.0 %Sjtfgs55.7-49.0A[facility] Orrville HospitalComment on above:Performed By: #### 7712122, 9459287, 83422032 #### [facility] [address] [place] [address]46[address]Ilzczjzlrc (Bld) [Mass/Vol]14.9 g/kBVnkiit77.5-17.5FRegency Hospital CompanyComment on above:Performed By: #### 9087309, 9566523, 73897333 #### [facility] [address] [place] [address]Jixhc Absolute2.1 E9/LNormal1.0-4.0[facility] Comment on above:Performed By: #### 4973741, 1066356, 77961823 #### [facility] [address] [place] [address]Bhzcqraaexw/100 WBC (Bld)28.8 %Vyhkri43.0-50.0[facility] HospitalComment on above:Performed By: #### 6040327, 4700507, 81043172 #### [facility] [address] [place] [address]DSU (RBC) [Entitic mass]29.2 jaQxixdn07.0-34.0[facility] HospitalComment on above:Performed By: #### 2737023, 8232180, [id number] #### [facility] [address] [place] [address]ALVC (RBC) [Mass/Vol]32.7 g/dZUspkdj18.4-36.0[facility] HospitalComment on above:Performed By: #### 6932992, 7621155, 37018389 #### [facility] [address] [place] [address]WMC (RBC) [Entitic vol]89.2 aVYakscr32.0-100.0[facility] HospitalComment on above:Performed By: #### 6557413, 4451951, 30149411 #### [facility] [address] [place] [address]Pwpp Absolute0.8 E9/LNormal0.2-1.0[facility] Comment on above:Performed By: #### 8038732, 6319345, 01125949 #### [facility] [address] [place] [address]Qwcpvhazo/100 WBC (Bld)10.7 %Normal4.0-14.0[facility] Orrville HospitalComment on above:Performed By: #### 2737874, 7571319, 61510866 #### [facility] [address] [place] [address]Fsgumr Absolute4.0 E9/LNormal2.0-7.5FRegency Hospital Company Comment on above:Performed By: #### 3285091, 4755415, 48585836 #### [facility] [address] [place] [address]Tdejdv Auto54.9 %Kidrqd79.0-75.0[facility] Comment on above:Performed By: #### 0499170, 3266845, 22978535 #### [facility] [address] [place] [address]Lhjybuhp391.0 E9/ALfeqdk259.0-500.0[facility] Comment on above:Performed By: #### 6363946, 5242336, 55546153 #### [facility] [address] [place] [address]Akntqgnn mean volume (Bld) [Entitic vol]8.2 fLNormal6.4-10.8 [facility] HospitalComment on above:Performed By: #### 8144749, 3316687, 08190095 #### [facility] [address] [place] [address]ITK4.1 E12/LNormal4.3-5.9[facility] HospitalComment on above:Performed By: #### 0707280, 0538635, 56397187 #### [facility] [address] [place] [address]RRF2.3 E9/LNormal4.0-11.0[facility] HospitalComment on above:Performed By: #### 5522848, 4565900, 06189449 #### [facility] [address] [place] [address]Bnspkks for Treatmenton 46-85-9684Ruckalr for Treatment [id number]#1.00TIFFNormalAultman Orrville HospitalXR Chest 2 Viewson 28-50-2512NU Chest 2 ViewsExam Date/Time: 09/19/2023 10:23 EST Reason for Exam: P.A.T. Report IMPRESSION: No acute radiographic abnormality. EXAMINATION: XR Chest 2 Views Clinical History: P.A.T. Comparison: 10/18/2018. RESULT: Shallow inspiration. No focal consolidation. No pleural effusion. No pneumothorax. Stable cardiomediastinal silhouette. No acute osseous findings. Ordering Provider: Ayad Jurado FINAL REPORT Dictated: 09/19/2023 3:34 pm Bernard Calles MD Signed (Electronic Signature): 09/19/2023 3:34 pm Signed by: Bernard Calles MD Transcribed by: TATY Technologist: EDDIE Technical Comments Radiation Dose: Ka,r in mGy = na DAP = naNorMetroHealth Main Campus Medical CentereGFRon 30-27-5508zBFI55 mL/min/1.73 m2 Low>=[address] [place], [place] [address]Comment on above:Order Comment: Order added by Discern Expert.Performed By: #### [id number], 0436735, [id number] ####[facility] [address] [place], [place] [address]Kvgjlmo for Procedure/Surgeryon 73-12-2569Wdfnvhw for Procedure/Surgery [id number] Health Main CampusAmbulatory Visit Summaryon 76-30-5208Zqtmohhksn Visit Summary AYAD DE LA ROSA :1945 Visit Date:08/31/2023 Ambulatory Visit Instructions Your Care Team Attending Physician - Jamel MARTINEZ MD Primary Care Physician - Paulina Tyson MD This Is Your Medications List Contact prescribing physician if questions or concerns apixaban (Eliquis 5 mg oral tablet) celecoxib (CeleBREX 100 mg Cap) citalopram (citalopram 10 mg Tab) ferrous sulfate (ferrous sulfate 325 mg oral enteric coated tablet) finasteride (finasteride 5 mg Tab) levothyroxine (levothyroxine 75 mcg (0.075 mg) Tab) pantoprazole (Protonix 40 mg Tab-DR) simvastatin (simvastatin 20 mg Tab) tamsulosin (Flomax 0.4 mg Cap) valsartan (valsartan 40 mg Tab) Procedures Performed Colonoscopy (07/21/2023), Esophagogastroduodenoscopy (07/21/2023), Cystoscopy (06/05/2018), Right hemicolectomy (01/19/2016), Colonoscopy (12/30/2015), TRUS (transrectal ultrasound) guided cryoablation of prostate (01/13/2015), Cardiac catheterization, combined right and left heart. Discharge Vitals Heart Rate (Peripheral) 70 Respiratory Rate 16 Blood Pressure 126/83 Height 168.9 cm Height 66 in Weight 89 kg Weight 195.8 lb BMI 31.2 What to do next Scheduled Follow-Up Appointments Monday 9:30 AM EST Where: [facility] Monday 9:00 AM EST Where: [facility] Medications What How Much When Instructions Unchanged apixaban (Eliquis 5 mg oral tablet) By Mouth 2 times a day Contact prescribing physician if questions or concerns Unchanged celecoxib (CeleBREX 100 mg Cap) 1 Capsules By Mouth Every day Contact prescribing physician if questions or concerns Unchanged citalopram (citalopram 10 mg Tab) By Mouth Every day Contact prescribing physician if questions or concerns Unchanged ferrous sulfate (ferrous sulfate 325 mg oral enteric coated tablet) 1 Tablets By Mouth 2 times a day Contact prescribing physician if questions or concerns Unchanged finasteride (finasteride 5 mg Tab) 1 Tablets By Mouth Every day Contact prescribing physician if questions or concerns Unchanged levothyroxine (levothyroxine 75 mcg (0.075 mg) Tab) By Mouth Every day Contact prescribing physician if questions or concerns Unchanged pantoprazole (Protonix 40 mg Tab-DR) 1 Tablets By Mouth 2 times a day Contact prescribingphysician if questions or concerns Unchanged simvastatin (simvastatin 20 mg Tab) 1 Tablets By Mouth Once a day (at bedtime) Contact prescribing physician if questions or concerns Unchanged tamsulosin (Flomax 0.4 mg Cap) 1 Capsules By Mouth Every day Contact prescribing physician if questions or concerns Unchanged valsartan (valsartan 40 mg Tab) 1 Tablets By Mouth Every day Contact prescribing physician if questions or concerns Allergies No Known Allergies Problems Ongoing - Any problem that you are currently receiving treatment for. Abdominal pain, generalized Abnormal abdominal CT scan Acquired deaf mutism. Anemia in chronic kidney disease BMI 31.0-31.9,adult BPH with urinary obstruction Cardiomyopathy Carotid bruit Chronic GERD CKD (chronic kidney disease) stage 3, GFR 30-59 ml/min Congestive heart failure Coronary atherosclerosis Diabetes mellitus Diaphragmatic hernia Diverticulitis of colon Eczema Elevated PSA Epigastric pain First degree atrioventricular block Hyperlipidemia Hyperparathyroidism due to renal insufficiency Hypothyroidism Incarcerated left inguinal hernia Iron deficiency anemia Left anterior fascicular block Lumbar spondylosis HI (mitral incompetence) Obesity Orthostatic hypotension Other dysphagia Pancreatic cyst Paroxysmal atrial fibrillation Personal history of colonic polyps Tremor Historical - Any problem that you are no longer receiving treatment for. Acute eczema BPH - benign prostatic hyperplasia Chronic back pain Chronic deafness Heart disease Hyperlipidemia Patient Survey You may receive a survey via text or e-mail asking about your office visit. Please share your experience with us by completing your survey. We appreciate your feedback and thank you for choosing us for your care. [facility] HospitalConsent for Procedure/Surgeryon [id number] for Procedure/Surgery [id number]#1.00TIFFNoKettering Health Main CampusGeneral Surgery Office/Clinic Noteon [id number] Surgery Office/Clinic NoteChief Complaint discuss inguinal hernia repair and MRCP result HPI Staff Presents to discuss left inguinal hernia repair and results of MRCP. Reports noting bulge for unknown period of time. He reports some increase in size since first noted. Reports bulge is always present, he does not try to reduce this. Reports significant discomfort when lying on left side. He does not take any pain medication. Denies nausea, vomiting or difficulty moving bowels. Patient on Eliquis which is managed by PCP and [facility]. He was prescribed Carafate after EGD completed last month. He believes this was causing intense itching so stopped medication after several days. Reports itching has improved but not completely resolved. He experiences intermittent itching, primarily to back, with red reports red splotches . Advised he discuss with PCP since stopping medication has not resolved itching. History of Present Illness patient presents for reevaluation of left inguinal hernia after abd ct scan, also had MRCP for pancreatic cyst, cystic lesion in neck of pancreas, 2 cm, unable to determine etiology; patient seen with design and sales consultant via ipad; patient reports left inguinal hernia is painful with activity and when he tries to lay on his left side, no N/V or bowel changes; abdominal operations significantfor right hemicolectomy for large tubulovillous adenoma; on Eliquis daily due to A fib; no asa; no tobacco use. Review of Systems PHQ Score Initial Depression Screen Score: 0 SCORE ROS - Provider Constitutional: no fever, no sweats, no weight loss. Eyes: no glasses, no blurred vision, no visual loss. ENMT: no dentures, no hoarseness, no swallowing difficulties, yes hearing loss, no ear infection(s), no nose bleeds. Cardiovascular: normal blood pressure, no chest pain, regular heartbeat, no heart murmur. Respiratory: no shortness of breath, no cough, no asthma, no wheezing. Gastrointestinal: no nausea, no vomiting, no diarrhea, no constipation, no blood in stool, no change in bowel habits, no abdominal pain, no hepatitis. Genitourinary: no kidney stones, no urine infection, no dysuria. Musculoskeletal: no pain, no weakness. Skin: no changing moles, no rash, no skin lumps. Neurologic: no seizures, no epilepsy, no headache. Psychiatric: no emotional or psychiatric problem. Heme/Lymph: no bleeding problems, no anemia, no blood clots, no transfusions. Allergy/Immunologic: no swollen lymph nodes/glands, no IV drug abuse. Other: Additional ROS info: Except as noted in the above Review of Systems and in the History of Present Illness, all other systems have been reviewed and are negative or noncontributory. Physical Exam Vitals & Measurements HR: 70(Peripheral) RR: 16 BP: 126/83 HT: 66 in HT: 168.9 cm WT: 89 kg WT: 195.8 lb BMI: 31.2 HEENT: normal conjunctiva, sclera clear, no scleral icterus, EOM intact, PERRLA, oral mucosa moist without lesions. Neck: trachea midline, no mass, symmetric, no thyromegaly or nodules, no adenopathy Respiratory: lungs CTA, respirations non labored. Cardiovascular: regular rate and rhythm, no murmur, no pedal edema or varicosities. Gastrointestinal: obese, soft, non distended, no tenderness, no masses, left inguinal hernia extending into scrotum, reducible, no skin changes; small reducible umbilical hernia; diastasis recti yes,no hepatosplenomegaly; normal bs Lymphatic: no cervical adenopathy, no supraclavicular adenopathy. Musculoskeletal: normal gait, digits and nails without infection, nodes, cyanosis, clubbing. Skin: no rashes, no lesions, no ulcers, no subcutaneous nodules, induration. Psychiatric/Neuro: oriented to time, place, person, judgement normal, affect appropriate for age, insight intact, no focal deficits. Tests: labs reviewed, x-rays reviewed, review of old records completed , Discussed surgical options, risks, and possible complications with patient. Assessment/Plan 1. Reducible left inguinal hernia (K40.90: Unilateral inguinal hernia, without obstruction or gangrene, not specified as recurrent) plan left inguinal herniorrhaphy with mesh insertion, informed consent obtained. preoperative clearance by Dr Tyson; patient to hold Eliquis 2 days prior to OR; signs/symptoms of incarceration/strangulation of hernia explained in detail, and patient understands that he should seek prompt medical evaluation if they were to occur. Ancef 2 gms IV prior to OR TAP block per anesthesia SCDs Ordered: E&M of Est. Patient High 40-54 Min 89742 2. Pancreatic cyst (K86.2: Cyst of pancreas) refer to [facility] for further evaluation. Ordered: E&M of Est. Patient High 40-54 Min 9[address]86 [facility] External Ambulatory Referral Orders: sucralfate, 1 gm = 1 tab(s), Oral, QID, # 120 tab(s), Refills(s) 3, Pharmacy: [facility]/pharmacy #[id number], 168.9, cm, 07/21/23 8:34:00 EST, Height/Length Dosing, 85, kg, 07/21/23 8:34:00 EST, Weight Dosing Follow-up No qualifying data available Problem List (more content not included)...[facility] Comment on above:Result Comment: Electronically Signed By: JUAN CHATMAN, Jamel Mccann\Date and Time Signed: 08/31/23 12:00 ESTMRI Cholangiogram Pancreatography (mrcp)on [id number] Cholangiogram Pancreatography (mrcp)Exam Date/Time: 08/17/2023 11:09 EST Reason for Exam: Pancreatic cyst;Other (please specify) Report IMPRESSION: NO GALLBLADDER ABNORMALITY IS NOTED. THERE IS NO BILIARY DUCTAL DILATATION. FOCAL MULTICYSTIC STRUCTURE PANCREATIC NECK, THE SPECIFIC ETIOLOGY OF WHICH IS NOT DETERMINED ON THIS STUDY. CONTINUED FOLLOW-UP (CT AND/OR MRI) IS RECOMMENDED. FOR MRI FOLLOW-UP, SPECIFIC MRI OF THE ABDOMEN, WITHOUT AND WITH INTRAVENOUS CONTRAST ENHANCEMENT WOULD BE RECOMMENDED RATHER THAN UNENHANCED MRCP STUDY. CLINICAL HISTORY: Pancreatic cyst, COMPARISON: 08/17/2023. COMMENT: An unenhanced MRCP study was obtained. The gallbladder is normal in size and appearance, and no gallstone is evident. The intrahepatic and extrahepatic bile ducts are not dilated, measuring 0.3 cm in greatest diameter. No choledochal calculus is noted. The pancreatic duct is not dilated. Involving the pancreatic neck, there is a focal structure of fluid signal intensity with overall dimensions of approximately 2 x 1.4 x 2.2 cm. This has lobulated margin and appears to be comprised of multiple smaller fluid signal intensity structures. This has the appearance of a multicystic structure. On this unenhanced study, differentiation between benign pancreatic cystic complex, intraductal pancreatic mucinous neoplasm, or cystic pancreatic malignancy is not specifically made. The main pancreatic duct is located posterior to the cystic structure, and there is neither dilated nor narrowed at this site. The pancreas is otherwise unremarkable in appearance on this unenhanced MRCP study. No peripancreatic inflammation nor fluid collection is evident. The liver is within normal limits in size and configuration. No focal liver lesion is noted. The spleen is normal in size and configuration. Of incidental note, there are fluid signal intensity right and left renal cysts. Of incidental note, there is a relatively large hiatal hernia. No free fluid is identified in the upper abdomen. Ordering Provider: Jamel MARTINEZ FINAL REPORT Dictated: 08/23/2023 1:40 pm Sudhakar Worrell M.D. Signed (Electronic Signature): 08/23/2023 1:40 pm Signed by: Sudhakar Worrell M.D. Transcribed by: TATY Technologist: RAYNABlanchard Valley Health System Bluffton HospitalConsent for Treatmenton [id number] for Treatment [id number]#1.00TIFSelect Medical Specialty Hospital - CantonRAD - MRI Screening Formon [id number] - MRI Screening Form [id number]#1.00The [facility] HospitalIntraOperative Documentson [id number] Documents [id number]#1.00The Jewish HospitalReminderson [id number] From: Kavya Cristina LPN To: N - Clinical; Sent: 07/26/2023 09:55:32 EST Show up: 06/21/2028 07:00:00 EDT Subject: colonoscopy recall Due Date/Time: 07/21/2028 07:00:00 EST Reminder/Recall Patient due for surveillance colonoscopy 07/21/2028 due to remote history of villous adenoma.NormalAultman Orrville HospitalCHEMISTRYOrdered By: SYSTEM SYSTEM on [id number] [Mass/Vol]1.8 mg/dLHigh0.5 - 1.3 mg/dLMEDICAL CENTER [facility] RemisolGFR/1.73 sq M.predicted among non-blacks MDRD (S/P/Bld) [Vol rate/Area]38 mL/min/1.73 m2Low>=59mL/min/1.73 m2[facility] Chem SComment on above:Interpretive Data: Chronic kidney disease could be indicated at eGFR's of less than 60 mL/min/1.73m2. Kidney failure is indicated at less than 15 mL/min/1.73m2.CT Abdomen/Pelvis w/ Contraston [id number] Abdomen/Pelvis w/ ContrastExam Date/Time: 07/25/2023 10:51 EST Reason for Exam: Hernia suspected, abdominal wall;Other (please specify) Report IMPRESSION: BORDERLINE CARDIOMEGALY. HEPATIC STEATOSIS. 1.3 X 1.5 CM CYST AT JUNCTION OF PANCREATIC HEAD AND BODY. DIFFERENTIAL INCLUDES SIMPLE PANCREATIC CYST, PANCREATIC PSEUDOCYST, INTRADUCTAL PANCREATIC MUCINOUS NEOPLASM (IPMN). MALIGNANCY LESS LIKELY. PROSTATIC ENLARGEMENT. FAT-CONTAINING BILATERAL INGUINAL HERNIAS. CT OF THE ABDOMEN AND PELVIS WITH INTRAVENOUS CONTRAST MEDIUM. History: Hernia suspected, abdominal wall. Technical Factors: CT imaging of the abdomen and pelvis were obtained and formatted as 5 mm contiguous axial images from the domes of the diaphragm to the symphysis pubis. Sagittal and coronal reconstructions were also obtained. Oral contrast medium: Barium sulfate, 900 mL. Intravenous contrast medium: Isovue-300, 100 mL. Comparison: None area Findings: Lower chest: Cardiac size upper limits of normal. Calcified lymph nodes right infrahilar region. Coronary artery calcification. Subsegmental dependent atelectatic change right lung base. Liver: Normal in size, shape, and decreased in attenuation. Bile Ducts: Normal in caliber. Gallbladder: No stones or wall thickening. Pancreas: Normal without masses, ductal dilatation or calcification. 1.3 x 1.5 cm cyst, anterior pancreas, at junction of pancreatic head and body (series 2, image 26, series 4, image 39, series 3, 43). Spleen: Normal in size without masses. Punctate calcification spleen. No splenules. Kidneys: Normal in size and enhancement. No hydronephrosis, masses, or stones. 7 mm cortical cyst mid pole right kidney. Report Adrenals: Normal. Small bowel: Normal in caliber. Appendix: Not visualized. Colon: Normal in caliber. Peritoneum: No ascites, free air, or fluid collections. Vessels: Aorta normal in course and caliber. Portal vein, splenic vein, superior mesenteric vein are patent. Lymph nodes: Retroperitoneal: No enlarged retroperitoneal lymph nodes. Mesenteric: No enlarged mesenteric lymph nodes. Pelvic: No enlarged pelvic lymph nodes. Ureters: Normal in course and caliber. No calcifications. Bladder: No wall thickening. Partially decompressed. Prostate: Enlarged with transverse diameter 6.9 cm. Lactate calcification identified in prostate. Abdominal Wall: Fat identified bilateral inguinal canals. No diastasis of rectus musculature. No edema or masses. Bones: No bone lesions. This space narrowing L3-L4 and L4-L5. No post operative changes. All CT scans at this facility use dose modulation, iterative reconstruction, and/or weight based dosing when appropriate to reduce radiation dose to as low as reasonably achievable. Ordering Provider: Jamel MARTINEZ FINAL REPORT Dictated: 07/25/2023 7:27 pm Signer Marshall CHATMAN Signed (Electronic Signature): 07/25/2023 7:27 pm Signed by: Marshall Wiley MD Transcribed by: TATY Technologist: ANNABELLE Technical Comments GFR (mL/min/1/73m2) 38 hydrated Contrast: Isovue 300 Contrast amount in ml's: 100 Rectal Contrast Given? No Oral contrast amount in ml's: 900NormAvita Health SystemConsent for Treatmenton [id number] for Treatment [id number]#1.00TIFFClermont County HospitalCreatinineon 86-65-2921Esuujuwpxu [Mass/Vol]1.8 mg/dLHigh0.5-1.3Fisher [facility] Maryland Medical CenterComment on above:Performed By: #### [id number], [id number] ####[facility] [address] [place], [place] [address]rIXF on 52-89-8296CWH/1.73 sq M.predicted among non-blacks MDRD (S/P/Bld) [Vol rate/Area]38 mL/min/1.73 m2Low>=59Aultman Orrville HospitalComment on above: Order Comment: Order added by Discern Expert.Result Comment: Chronic kidney disease could be indicated at eGFR's of less than 60 mL/min/1.73m2. Kidney failure is indicated at less than 15 mL/min/1.73m2.Performed By: #### [id number], [id number] ####[facility] [address] [place], [place] [address]Ssmcwnpbp 85-46-0536Oolccaq [id number]#1.00TIFSelect Medical Specialty Hospital - CantonDischarge Instructionson [id number] Instructions [id number]#1.00TIFSelect Medical Specialty Hospital - CantonMain OR Intraoperative Recordon [id number] OR Intraoperative Record IntraOp Document Type FT Summary Primary Physician: Jamel MARTINEZ MD Finalized Date/Time: 07/24/23 09:02:50 Pt. Name: AYAD DE LA ROSA /Sex: 1945 Male Med Rec #: [id number] Physician: Jamel MARTINEZ MD [facility] #: [id number] Pt. Type: O Room/Bed: / Admit/Disch: 07/21/23 08:04:56 - 07/21/23 23:59:59 Institution: Case Times FT Entry 1 Patient Times In Room 07/21/23 08:48:00 Out Room 07/21/23 09:13:00 Procedure Times Start 07/21/23 08:51:00 Stop 07/21/23 09:06:00 Anesthesia Times Start 07/21/23 08:48:00 Stop 07/21/23 09:13:00 Time at [facility] 07/21/23 09:00:00 Last Modified By: Antoinette DAILEY, Angelica Ferrer 07/21/23 09:13:33 General Comments: 0856 EGD completed /,RN 0858 Colonoscopy started /MD,RN 07/24/23 Chart opened to review and send charges LRoth CSFA Case Attendance FT Entry 1 Entry 2 Entry 3 Case Attendee Cruzito KAYE, Tab Curry RN, Juliann Gupta Role Performed Anesthesiologist Courtroom Deputy - Primary Scrub - Primary Mobile Equipment Operator Time In 07/21/23 08:48:00 07/21/23 08:48:00 07/21/23 08:48:00 Time Out 07/21/23 09:13:00 07/21/23 09:13:00 07/21/23 09:13:00 Procedure EGD AND COLONOSCOPY(.) EGD AND COLONOSCOPY(.) EGD AND COLONOSCOPY(.) Comments Dr. Machado supervising case Last Modified By: Antoinette RN, Angelica Curry RN, Angelica Curry RN, Angelica Ferrer 07/21/23 09:13:36 F 07/21/23 09:13:36 F 07/21/23 09:13:36 Entry 4 Entry 5 Case Attendee Ijeoma TOLEDO, Linette MARTINEZ MD, Jamel Suazo Role Performed Staff - Other Surgeon - Primary Time In 07/21/23 08:48:00 07/21/23 08:48:00 Time Out 07/21/23 09:13:00 07/21/23 09:13:00 Procedure EGD AND COLONOSCOPY(.) EGD AND COLONOSCOPY(.) Comments help in room Last Modified By: Angelica Curry RN, RN, Madaline F 07/21/23 09:13:36 F 07/21/23 09:13:36 Perioperative Protocols FT Pre-Care Text: Implements protective measures prior to operative or invasive procedure, confirms identity before the operative or invasive procedure, verifies operative procedure, surgical site, and laterality Entry 1 Procedure(s) EGD AND COLONOSCOPY(.) Patient Identity Birthday, ID Band Verified (select at Check, Patient least 2): Participation Consents / H and P Anesthesia Consent, Operative Site N/A Verified HandP, Surgery/Procedure Marking Verified Consent Surgical Site No Laterality Verified n/a Verified Procedure Verified Yes Correct Patient Yes Position Verified Availability Equipment, Medication Prep Dry n/a Verified (If Applicable) PreOp Antibiotic No Time Out Cruzito KAYE, Tab Given Participants Antoinette Nguyễn RN, Angelica Ferrer, Juliann Small Schafer CST, JUAN Garcia MD, Michael R Time Out Complete 07/21/23 08:49:00 Outcomes Met? Yes Last Modified By: Angelica Curry RN 07/21/23 08:51:24 Post-Care Text: The patient is free from signs and symptoms of injury caused by extraneous objects Allergy Information FT Pre-Care Text: Verifies allergies Entry 1 Allergies Reviewed? Yes Allergies Reviewed Self/Patient With Outcomes Met? Yes Last Modified By: Angelica Curry RN 07/21/23 08:51:30 Post-Care Text: The patient received appropriate medication(s) safely administered during the perioperative period Surgical Procedures FT Entry 1 Procedure Description Procedure EGD AND COLONOSCOPY Modifiers . Surgeon Description EGD with antral biopsy. Colonoscopy Primary Procedure Yes Primary Surgeon Jamel MARTINEZ MD Start 07/21/23 08:51:00 Stop 07/21/23 09:06:00 Anesthesia Type General Surgical Service General Wound Class 2 - Clean-Contaminated Last Modified By: Angelica Curry RN 07/21/23 09:06:38 General Case Data FT Pre-Care Text: Classifies surgical wound, implements aseptic technique, initiates traffic control Entry 1 Case Information OR ENDO 1 FT Case Level Level 2 Wound Class 2 - Clean-Contaminated Specialty General ASA Class 3 Preop Diagnosis HIstory of colon Postop Same As Preop No polyps, epigastric pain Postop Diagnosis EGD- antral gastritis, Outcomes Met? Yes hiatal hernia. Colonoscopy- sigmoid colon diverticulosis Last Modified By: Angelica Curry RN 07/21/23 09:07:32 Post-Care Text: The patient is free from signs and symptoms of infection Skin Assessment (Pre Procedure) FT Pre-Care Text: Implements protective measures to prevent skin/ tissue injury due to thermal or mechanical sources Evaluates for signs and symptoms of physical injury to skin and tissue Entry 1 Skin Integrity Intact, Forbes, Warm, and Skin Abnormality No Dry Outcomes Met? Yes Last Modified By: Angelica Curry RN 07/21/23 08:52:05 Post-Care Text: The patient is free from signs and symptoms of injury caused by extraneous objects Patient Positioning FT Pre-Care Text: Identifies physical alterations that require additional precautions for procedure-specific positio (more content not included)...NormalAultman Orrville HospitalPhysician Orderon [id number] Order [id number] Medical Specialty Hospital - CantonPostoperative Documentson [id number] Documents [id number]#1.00TIFSelect Medical Specialty Hospital - CantonColonoscopy Procedure Reporton [id number] Procedure Report Patient: AYAD DE LA ROSA Age: 77 years Sex: Male : 1945 Associated Diagnoses: None Author: Jamel MARTINEZ MD Pre-Procedure Procedure Date 07/21/2023 09:19:00 . Procedure Type: Colonoscopy. Procedure provider Performed by Jamel MARTINEZ MD. Referred by Paulina Tyson MD. Current history and physical Documented on chart. Colorectal neoplasm risk assessment Average risk. Informed Consent After discussing the rationale, risks and benefits, and alternatives to this procedure, the patient provided signed consent for the procedure. Pre-procedure diagnosis: No prior colonoscopy. ASA Classification: Class II. . Procedure The procedure was performed in the hospital. See anesthesia record for sedation given during procedure. Rectal exam was performed and was normal. The patient was positioned starting in the left lateral decubitus position. Endoscope type used was an adult-size. The endoscope was lubricated then introduced through the anus. The scope was advanced past the anastomosis to the neoterminal ileum with photographic documentation obtained. No difficulties encountered during the procedure. The bowel preparation quality was good and was adequate (see polyps greater than or equal to 6 millimeters). The patient tolerated the procedure well. Findings Diverticulosis was identified in the sigmoid colon. The severity of the diverticulosis is mild. Images Procedure images: anal canal rectal veins ileocolic anastamosis . Post-Procedure Complications: none. Estimated blood loss: none. Specimens: none. Devices/ implants: none left in place. Impression and Plan Diagnosis: Diverticulosis of sigmoid colon ([id number] K57.30, Discharge, Medical). Course: Progressing as expected. Recommendations: Repeat colonoscopy:: In 5 years. Follow-up:: Await biopsy results in 3-5 days, 7-10 days. Diet:: High fiber. Medication resumption:: Continue current medications. Return to activities:: After 24 hours. Education and Follow-up: Counseled: Family.[facility] Comment on above:Other Comment: Missing Attachment - attachment storage system not supported [id number] Can be viewed in source system Missing Attachment - attachment storage system not supported [id number] Can be viewed in source systemMissing Attachment - attachment storage system not supported [id number] Can be viewed in source systemDischarge Instructionson [id number] Instructions AYAD DE LA ROSA :1945 Visit Date:07/21/2023 Inpatient Discharge Instructions Your Care Team Admitting Physician - Jamel MARTINEZ MD Referring Physician - Jamel MARTINEZ MD Reason for Your Visit HX OF COLON POLYPS, EPIGASTRIC PAIN Your Diagnosis Antral gastritis Diverticulosis of sigmoid colon Gastro-esophageal reflux disease with esophagitis, without bleeding Hiatal hernia with GERD and esophagitis Tests Performed Pathology Tissue Exam -- Results Pending -- Please visit your patient portal for your results or contact your primary care physician. This Is Your Medications List apixaban (Eliquis 5 mg oral tablet) celecoxib (CeleBREX 100 mg Cap) citalopram (citalopram 10 mg Tab) ferrous sulfate (ferrous sulfate 325 mg oral enteric coated tablet) finasteride (finasteride 5 mg Tab) levothyroxine (levothyroxine 75 mcg (0.075 mg) Tab) pantoprazole (Protonix 40 mg Tab-DR) simvastatin (simvastatin 20 mg Tab) sucralfate (Carafate 1 gram Tab) tamsulosin (Flomax 0.4 mg Cap) valsartan (valsartan 40 mg Tab) Procedure History Cystoscopy (06/05/2018), Right hemicolectomy (01/19/2016), Colonoscopy (12/30/2015), TRUS (transrectal ultrasound) guided cryoablation of prostate (01/13/2015), Cardiac catheterization, combined right and left heart. Discharge Vitals Temperature (Temporal Artery) 36.7 ?C Heart Rate (Monitored) 71 Respiratory Rate 21 Blood Pressure 82/67 Height 168.9 cm Weight 85 kg BMI 29.8 What to do next Instructions From Your Doctor Event Name Event Result Discharge Activity Resume normal activities in 24 hours, Arrange for a responsible adult supervision for 24 hours Discharge Restrictions No driving for 24 hrs, Do not operate machinery or tools, Do not make important decisions for 24 hours, Do not drink alcoholic beverages for 24 hours Discharge Diet(s) Other: high fiber Call Your Doctor For Persistent or heavy bleeding, Temperature above 101.5 degrees, Redness, swelling, or pus at operative site, Severe pain at the operative site Pharmacy Information [facility] Discharge Instructions Discharge Instructions Previously Scheduled Follow-Up Appointments Monday 10:00 AM EST Where: [facility] New Follow Up Appointments after Discharge Follow Up with Jamel MARTINEZ When: Within 7 to 10 days Where: [facility], [facility] [address] [address]- Business (1) Medications What How Much When Why Instructions Next Dose New sucralfate (Carafate 1 gram Tab) 1 Tablets By Mouth 4 times a day Antral gastritis Gastro-esophageal reflux disease with esophagitis, without bleeding Hiatal hernia with GERD and esophagitis Refills: 3 Pickup at [facility]/pharmacy #[id number] Changed pantoprazole (Protonix 40 mg Tab-DR) 1 Tablets By Mouth 2 times a day Pickup at [facility]/pharmacy #[id number] Unchanged apixaban (Eliquis 5 mg oral tablet) By Mouth 2 times a day Unchanged celecoxib (CeleBREX 100 mg Cap) 1 Capsules By Mouth Every day Unchanged citalopram (citalopram 10 mg Tab) By Mouth Every day Unchanged ferrous sulfate (ferrous sulfate 325 mg oral enteric coated tablet) 1 Tablets By Mouth 2 times a day Unchanged finasteride (finasteride 5 mg Tab) 1 Tablets By Mouth Every day Unchanged levothyroxine (levothyroxine 75 mcg (0.075 mg) Tab) By Mouth Every day Unchanged simvastatin (simvastatin 20 mg Tab) 1 Tablets By Mouth Once a day (at bedtime) Unchanged tamsulosin (Flomax 0.4 mg Cap) 1 Capsules By Mouth Every day Unchanged valsartan (valsartan 40 mg Tab) 1 Tablets By Mouth Every day Pharmacy Information [facility] #[id number]: [address], [place] [phone] Test Results No qualifying data available. Allergies No Known Allergies Problems Ongoing - Any problem that you are currently receiving treatment for. Abdominal pain, generalized Acquired deaf mutism. Anemia in chronic kidney disease BPH with urinary obstruction Cardiomyopathy Carotid bruit Chronic GERD CKD (chronic kidney disease) stage 3, GFR 30-59 ml/min Congestive heart failure Coronary atherosclerosis Diabetes mellitus Diaphragmatic hernia Diverticulitis of colon Eczema Elevated PSA Epigastric pain First degree atrioventricular block Hyperlipidemia Hyperparathyroidism due to renal insufficiency Hypothyroidism Incarcerated left inguinal hernia Iron deficiency anemia Left anterior fascicular block Lumbar spondylosis HI (mitral incompetence) Obesity Orthostatic hypotension Other dysphagia Paroxysmal atrial fibrillation Personal history of colonic polyps Tremor Historical - Any problem that you are no longer receiving treatment for. Acute eczema BPH - benign prostatic hyperplasia Chronic back pain Chronic deafness Heart disease Hyperlipidemia Education Materials Upper Endoscopy, Adult, Care After After the p (more content not included)...[facility] Comment on above:Result Comment: Electronically Signed By: Kolby DAILEY, Tere\.yessi\Date and Time Signed: 07/21/23 09:27 Jordy 07-21-2023 EsophagogastroduodenoscopyPatient: AYAD DE LA ROSA COLE: [id number] Age: 77 years Sex: Male : 1945 Associated Diagnoses: None Author: Jamel MARTINEZ MD Pre-Procedure Procedure Date 07/21/2023 09:23:00 . Procedure Type: Esophagogastroduodenoscopy with biopsy. Procedure provider Performed by Jamel MARTINEZ MD. Referred by Paulina Tyson MD. Current history and physical Documented on chart. Informed Consent After discussing the rationale, risks and benefits, and alternatives to this procedure, the patient provided signed consent for the procedure. Pre-procedure diagnosis: Early satiety. Dysphagia/ odynophagia. Dyspepsia. Nausea/ vomiting. ASA Classification: Class III. . Monitoring: See anesthesia record. . Procedure The procedure was performed in the hospital. See anesthesia record for sedation given during procedure. The patient was positioned starting in the left lateral decubitus position. Endoscope type usedwas an adult-size, introduced orally, advanced to the 2nd portion of the duodenum. No difficulty was encountered during the procedure. Views were excellent. Gastric biopsies were taken of the antrum.The patient tolerated the procedure well. Findings Erythematous esophagitis was identified. The esophagitis was located at 23 cm from the incisors. The affected area was erythematous. The esophagitis was moderately severe. The squamocolumnar junctionappeared irregular. A hiatal hernia was identified 6 cm in length. The hernia is described as a sliding hernia. Hiatal hernia: tortuous distal esophagus. Examination of the duodenum revealed a normalduodenum. Images Procedure images: distal esophagus tortuous distal esophagus hiatal hernia antral gastritis antral gastritis . Post-Procedure Complications: none. Estimated blood loss: 1 milliliters. Specimens: sent to pathology. Devices/ implants: none left in place. Impression and Plan EGD: Diagnosis: Antral gastritis (SQM37-GB K29.50, Discharge, Medical), Diverticulosis of sigmoid colon (BPE33-PD K57.30, Discharge, Medical), Gastro- esophageal reflux disease with esophagitis, without bleeding (OHN97-PJ K21.00, Discharge, Medical), Hiatal hernia with GERD and esophagitis (BIZ30-MR K44.9, Discharge, Medical). Course: Progressing as expected. Education and Follow-up: Counseled: Family. Notes: added Carafate QID, increased Protonix to bid.[facility]:Other Comment: Missing Attachment - attachment storage system not supported [id number] Can be viewed in source systemMissing Attachment - attachment storage system not supported [id number] Can be viewed insource systemMissing Attachment - attachment storage system not supported [id number] Can be viewed in source systemMissing Attachment - attachment storage system not supported [id number] Can be viewed in source systemMissing Attachment - attachment storage system not supported [id number] Can be viewed in source systemInpatient Patient Summaryon [id number] Patient Summary [address] [address] [facility] Clinical Discharge Instructions PERSON INFORMATION Name: AYAD DE LA ROSA PHYSICIANS Admitting Physician: Jamel MARTINEZ MD Attending Physician: Jamel MARTINEZ MD PCP: Marbella CHATMAN, Paulina Discharge Diagnosis: Antral gastritis; Diverticulosis of sigmoid colon; Gastro- esophageal reflux disease with esophagitis, without bleeding; Hiatal hernia with GERD and esophagitis Comment: PATIENT EDUCATION INFORMATION Instructions: Upper Endoscopy, Adult, Care After; [facility] NSAIDS-Nonsteroidal Anti-Inflammatory Medications (CUSTOM); Gastritis, Adult; Hiatal Hernia; Colonoscopy, Care After Surgery Salam (CUSTOM); Diverticulosis MAGR (CUSTOM) Medication Leaflets: Follow up: With: Address: When: Jamel MARTINEZ [address] [place] [address], [address], [address] [address] Business (1) Within 7 to 10 days Type Location Start Finish State CT Abdomen/Pelvis Combo (FT) FT.CAT SCAN 07/25/2023 10:00 AM 07/25/2023 10:45 AM Confirmed MEDICATION LIST New Medications [id number], [address], [place] [id number], [phone] sucralfate (Carafate 1 gram Tab) 1 Tablets By Mouth 4 times a day. Refills: 3. Medications to Continue Taking That Have Changed [id number], [address], [place] [id number], [phone] START: pantoprazole (Protonix 40 mg Tab-DR) 1 Tablets By Mouth 2 times a day. Refills: 3. Medications to Continue with No Changes Other Medications apixaban (Eliquis 5 mg oral tablet) By Mouth 2 times a day. celecoxib (CeleBREX 100 mg Cap) 1 Capsules By Mouth every day. citalopram (citalopram 10 mg Tab) By Mouth every day. ferrous sulfate (ferrous sulfate 325 mg oral enteric coated tablet) 1 Tablets By Mouth 2 times a day. finasteride (finasteride 5 mg Tab) 1 Tablets By Mouth every day. Refills: 3. levothyroxine (levothyroxine 75 mcg (0.075 mg) Tab) By Mouth every day. simvastatin (simvastatin 20 mg Tab) 1 Tablets By Mouth once a day (at bedtime). tamsulosin (Flomax 0.4 mg Cap) 1 Capsules By Mouth every day. Refills: 3. valsartan (valsartan 40 mg Tab) 1 Tablets By Mouth every day. Comment[facility] Recordon [id number] OR PACU I RecordPACU Phase I Document Type FT Summary Primary Physician: Jamel MARTINEZ MD Finalized Date/Time: 07/21/23 10:35:27 Pt. Name: AYAD DE LA ROSA/Sex: 1945 Male Med Rec #: [id number] Physician: Jamel MARTINEZ MD Financial #: [id number] Pt. Type: O Room/Bed: / Admit/Disch: 07/21/23 08:04:56 - Institution: Case Times PACU I FT Pre-Care Text: Identifies barriers to communication and implements measures to provide psychological support Develops individualized plan of care, and ensures continuity of care Maintains patient's dignity and privacy, and maintains patient confidentiality Identifies and reports philosophical, cultural, and spiritual beliefs and values Identifies individual values and wishes concerning care Implements aseptic technique, and administers prescribed antibiotic therapy and immunizing agents as ordered Evaluates postoperative tissue perfusion Implements thermoregulation measures, and monitors body temperature Evaluates postoperative respiratory status Evaluates postoperative cardiac status Evaluates postoperative neurological status Assesses pain control, collaborated in initiating patient-controlled analgesia and implements alternative methods of pain control Verifies allergies, administers prescribed medications and solutions, evaluates response to medications Entry 1 In PACU I 07/21/23 09:15:00 Discharge from PACU 07/21/23 10:15:00 I Outcomes Met? Yes Last Modified By: Tere Jarrett RN 07/21/23 10:33:41 Post-Care Text: The patient demonstrates knowledge of the expected response to the operative or invasive procedure The patient's care is consistent with the individualized perioperative plan of care The patient's rightto privacy is maintained The patient's value system, lifestyle, ethnicity, and culture are considered, respected, and incorporated into the perioperative plan of care The patient participates in decisions affecting his or her perioperative plan of care The patient is free from signs and symptoms of infection The patient has wound/tissue perfusion consistent with or improved from baseline levels established preoperatively The patient is at or returning to normothermia at the conclusion of the immediate postoperative period The patient's respiratory function is consistent with or improved from baseline levels established preoperativelyThe patient's cardiovascular status is consistent with or improved from baseline levels established preoperatively The patient's cardiovascular status is consistent with or improved from baseline levels established preoperatively The patient demonstrates and/or reports adequate pain control throughout the perioperative period The patient received appropriate medication(s), safely administered during the perioperativeperiod General Comments: pt here longer due to pt and both being deaf and 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 took awhile to go over instructions Acuity Level PACU I FT Entry 1 Start Time 07/21/23 09:15:00 Stop Time 07/21/23 10:15:00 Acuity Level Acuity Level I Last Modified By: Tere Jarrett RN 07/21/23 10:33:53 Finalized By: Tere Jarrett RN Document Signatures Signed By: Tere Jarrett RN 07/21/23 10:33 Tere Jarrett RN 07/21/23 10:35[facility] Preoperative Recordon [id number] OR Preoperative RecordHolding Area Document Type FT Summary Primary Physician: Jamel MARTINEZ MD Finalized Date/Time: 07/21/23 08:34:06 Pt. Name: AYAD DE LA ROSA /Sex: 1945 Male Med Rec #: [id number] Physician: Jamel MARTINEZ MD Financial #: [id number] Pt. Type: O Room/Bed: / Admit/Disch: 07/21/23 08:04:56 - Institution: Case Times Holding FT Pre-Care Text: Verifies consent for planned procedure, identifies individual values and wishes concerning care, includes family members in perioperative teaching Secures patient's records' belongings, and valuables, maintains patient's dignity and privacy, and maintains patient confidentiality Entry 1 In Holding 07/21/23 08:20:00 Outcomes Met? 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 Complaints of Pain: Yes Pain Comment: chronic left sided hernia discomfort Operative Site n/a Marked By: n/a Marking: Availability Equipment Verified: Does Patient Smoke No Patient states Yes Comment - Adult postop adult Supervision supervision available Case Cancelled in No Holding Area see comments below for reason Last Modified By: Angelica Curry RN 07/21/23 08:34:04 General Comments: Pt finished colon prep at 0300, states stool is clear liquid yellow. /,RN Finalized By: Angelica Curry RN Document Signatures Signed By: Angelica Curry RN 07/21/23 08:34NoT[facility]onJohn[facility] Hospital Recordon [id number] Record [id number] [facility] [id number] [facility]Out[facility] Discharge Instructionon 07-21-2023 Outpatient Surgery Discharge Instruction [address] [address] Patient Discharge Instructions PERSON INFORMATION Name: KATTY AYAD Mota Date of : 1945 Current Date: 07/21/2023 09:25:55 PHYSICIANS Admitting Physician: Jamel MARTINEZ MD Discharge Diagnosis: Antral gastritis; Diverticulosis of sigmoid colon; Gastro- esophageal reflux disease with esophagitis, without bleeding; Hiatal hernia with GERD and esophagitis AYAD DE LA ROSA has been given the following list of follow-up instructions, prescriptions, and patient education materials: PATIENT FOLLOW-UP INFORMATION Diet: Other: high fiber Discharge Activity: Resume normal activities in 24 hours, Arrange for a responsible adult supervision for 24 hours Discharge Restrictions: No driving for 24 hrs, Do not operate machinery or tools, Do not make important decisions for 24 hours, Do not drink alcoholic beverages for 24 hours Call Your Doctor For: Persistent or heavy bleeding, Temperature above 101.5 degrees, Redness, swelling, or pus at operative site, Severe pain at the operative site IF UNABLE TO CONTACT YOUR PHYSICIAN AND YOU FEEL IT IS AN EMERGENCY, GO TO THE NEAREST EMERGENCY ROOM OR CALL 911 I, AYAD DE LA ROSA, have received the attached patient education materials/instructions and have verbalized understanding: May we do a follow up call? Yes No I was present when discharge instructions were given Patient Signature Date Clinican/Nurse Signature Date Follow up: With: Address: When: Jamel Funes, [address], [facility] [address] [place] [address] Business (1) Within 7 to 10 days Type Location Start Finish State CT Abdomen/Pelvis Combo (FT) FT.CAT SCAN 07/25/2023 10:00 AM 07/25/2023 10:45 AM Confirmed Pharmacy Information: [facility] You may receive a survey from Peter Renner asking you to rate your care experience. Your feedback is important and will help us understand what we do well and how we can improve the quality of care we provide to you, your loved ones and our community. It?s an honor to serve you. Thank you for choosing [facility] HERE ARE THE MEDICATION CHANGES THAT OCCURRED DURING YOUR HOSPITAL STAY New Medications [facility]/pharmacy #[id number], [address], [place] [phone], [phone] sucralfate (Carafate 1 gram Tab) 1 Tablets By Mouth 4 times a day. Refills: 3. Medications to Continue Taking That Have Changed [facility]/pharm[facility] #[id number], [address], [place] [id number], [phone] START: pantoprazole (Protonix 40 mg Tab-DR) 1 Tablets By Mouth 2 times a day. Refills: 3. Medications to Continue with No Changes Other Medications apixaban (Eliquis 5 mg oral tablet) By Mouth 2 times a day. celecoxib (CeleBREX 100 mg Cap) 1 Capsules By Mouth every day. citalopram (citalopram 10 mg Tab) By Mouth every day. ferrous sulfate (ferrous sulfate 325 mg oral enteric coated tablet) 1 Tablets By Mouth 2 times a day. finasteride (finasteride 5 mg Tab) 1 Tablets By Mouth every day. Refills: 3. levothyroxine (levothyroxine 75 mcg (0.075 mg) Tab) By Mouth every day. simvastatin (simvastatin 20 mg Tab) 1 Tablets By Mouth once a day (at bedtime). tamsulosin (Flomax 0.4 mg Cap) 1 Capsules By Mouth every day. Refills: 3. valsartan (valsartan 40 mg Tab) 1 Tablets By Mouth every day. PATIENT EDUCATION INFORMATION Instructions: Upper Endoscopy, Adult, Care After After the procedure, it is common to have a sore throat. It is also common to have: ? Mild stomach pain or discomfort. ? Bloating. ? Nausea. Follow these instructions at home: The instructions below may help you care for yourself at home. Your health care provider may give you more instructions. If you have questions, ask your health care provider. ? If you were given a sedative during the procedure, it can affect you for several hours. Do not drive or operate machinery until your health care provider says that it is safe. ? If you will be going home right after the procedure, plan to have a responsible adult: ? Take you home from the hospital or clinic. You will not be allowed to drive. ? Care for you for the time you are told. ? Follow instructions from your health care provider about what you may eat and drink. ? Return to your normal activities as told by your health care provider. Ask your health care provider what activities are safe for you. ? Take ahyl-jic-dnbgwux and prescription medicines only as told by your health care provider. Contact a health care provider if you: ? Have a sore throat that lasts (more content not included)...[facility] - Texton [id number] Education - Text Nonsteroidal Anti-Inflammatory Medications (NSAIDS) Non-steroidal anti-inflammatory drugs (NSAIDs) are a medication widely used to treat a wide range of conditions. Common acute (short-term) conditions that can be treated with NSAIDs include: ? headaches ? painful periods ? toothache ? soft tissue injuries such as sprains and strains ? reduce inflammation (redness and swelling) ? infections, such as the common cold or the flu (NSAIDs do not treat the underlying infections, but can help to relieve symptoms; especially fever) Common chronic (long-term) conditions that can be treated with NSAIDs include: ? most types of arthritis, including rheumatoid arthritis and osteoarthritis ? back pain ? neck pain Some NSAIDs are available ryyk-nlk-ccytkof, without the need for a prescription. However, because a medication is available over the counter it does not mean it is safe or suitablefor everyone. Again, it is important to read the patient information leaflet that comes with your medication. NSAID drugs include: Brand: Generic: Bufferin; Miguel Aspirin; ASA Celebrex Celecoxib Zipsor; Cambia Diclofenac Motrin; Advil Ibuprofen Indosin Indometacin Actron; Orudis Ketoprofen Toradol Ketorolac Mobic Meloxicam Ponstel Mefenamic Acid Aleve; Naprosyn Naproxen Side effects: Most people take NSAIDs without having any side effects. Short term use is unlikely to cause significant problems, especially in younger patients. If side effects do occur they usually affect the stomach and can include: ? Indigestion ? Nausea ? Stomach pain ? Stomach ulcer ? Bleeding from the stomach and intestines Other side effects: ? Ringing in the ears ? itching ? Poor control of asthma ? Headache ? Allergic reactions NSAIDs are also not usually recommended for people who: ? are or ? have a history of kidney disease ? have a history of liver disease ? have active stomach ulcers (a sore in the lining of the stomach), or are at risk of developing stomach ulcers How to take NSAIDS: NSAIDS should be taken in the pill form or given by injection. If you are taking the pill form, it is best to take with food to avoid an upset stomach. IF a dose is missed: Some of these medications are taken ?as needed.? Do not take more of your NSAID than your doctor has prescribed. Follow the txua-tbf-qwikuja labels and do not exceed the recommended dosage. If you take an NSAID daily, take the missed dose of your medication as soon as you remember it. If it is too close to the time for your next dose, skip the missed dose and go back to taking this medication at your normal time. Do not take two doses of this medication at the same time or take any extra doses of this medication. If any questions regarding your medications, contact your physician or pharmacist. Colonoscopy Care After Surgery Please read the instructions outlined below and refer to this sheet in the next few weeks. These discharge instructions provide you with general information on caring for [facility] Your doctor may also give you specific instructions. While your treatment has been planned according to the most current medical practices available, unavoidable complications occasionally occur. If you have any problems or questions after discharge, please call your doctor. ACTIVITY You may resume your regular activity, but move at a slower pace for the next 24 hours. Take frequent rest periods for the next 24 hours. Walking will help get rid of the air and reduce the bloated feeling in your abdomen (belly). No driving for 24 hours (because of the anesthesia (medicine) used during the test). You may shower. Do not sign any important legal documents or operate any machinery for 24 hours (because of the anesthesia used during the test). NUTRITION Drink plenty of fluids. You may resume your normal diet as instructed by your doctor. Begin with a light meal and progress to your normal diet. Heavy or fried foods are harder to digestand may make you feel nauseated (sick to your stomach). Avoid alcoholic beverages for 24 hours or as instructed. MEDICATIONS You may resume your normal medications unless your doctor tells you otherwise. WHAT YOU CAN EXPECT TODAY Some feelings of bloating in the abdomen. Passage of more gas than usual. Spotting of blood in your stool or on the toilet paper. FOLLOW-UP Your doctor will discuss the results of your test with you. SEEK IMMEDIATE MEDICAL ATTENTION IF: There is more than a spotting of blood in your stool. There is abdominal distention (your abdomen is swollen). There is vomiting. You have a temperature over 101.5 F. There is abdominal pain or discomfort that is severe or gets worse throughout the day. Diverticulosis Many people have small pouches in their colon called diverticulum. The diverticulum bulge outward through weak (more content not included)...Normal [facility] HospitalProgress Note-Physicianon [id number] Note-PhysicianPatient: AYAD DE LA ROSA Age: 77 years Sex: Male : 1945 Associated Diagnoses: None Author: Mike Machado Jr., DO Postoperative Information Postoperative disposition: Postoperative disposition: Home. Optimetrix number: Optimetrix number [id number]. Anesthetic utilized: General. Physical Examination Vital Signs 07/21/2023 9:20 EST Heart Rate Monitored 71 bpm Respiratory Rate Monitored 21 br/min Systolic Blood Pressure 82 mmHg LOW Diastolic Blood Pressure 67 mmHg SpO2 94 % 07/21/2023 9:15 EST Temperature Temporal Artery 36.7 DegC Heart Rate Monitored 80 bpm Respiratory Rate Monitored 129 br/min Systolic Blood Pressure 94 mmHg Diastolic Blood Pressure 58 mmHg LOW SpO2 94 % Pain Assessment: Controlled. General: Awake, Alert, Appropriate. Respiratory: Adequate air exchange, Non-labored. Cardiovascular: Stable, Normal peripheral perfusion. Neurological: Neurologic exam at baseline. No changes.. Assessment Anesthetic outcome No anesthetic complications noted. No nausea/vomiting. Review / Management Condition: Stable. Plan Transfer/Discharge: Transfer/Discharge Discharge when meets criteria ( From PACU to Ambulatory Surgery Unit, and To home ).[facility] Comment on above:Result Comment: Electronically Signed By: Mike Machado Jr., DO\.br\Date and Time Signed: 07/21/23 10:28 ESTProgress Note-PhysicianPatient: AYAD DE LA ROSA Age: 77 years Sex: Male : 1945 Associated Diagnoses: None Author: Mike Machado Jr., DO Preoperative Information Anesthesia history: Patient history: No prior anesthetic problems. Informed consent: Signed by patient. Re-evaluation prior to induction: Initial evaluation reviewed: No significant change. Review of Systems Respiratory: Negative except as documented in history of present illness. Cardiovascular: Negative except as documented in history of present illness. Health Status Allergies: Allergic Reactions (Selected) No Known Allergies, Allergies (1) Active Reaction No Known Allergies None Documented Current medications: (Selected) Inpatient Medications Ordered Sodium Chloride 0.9% IV Telma 1000 mL 1,000 mL: 1,000 mL, IV, 20 mL/hr, Routine, Start date 07/21/23 6:33:00 EST, 50 hour(s), Total volume (mL): 1,000, 85 kg, 2, m2 Prescriptions Prescribed Flomax 0.4 mg Cap: 0.4 mg = 1 cap(s), Oral, Daily, # 90 cap(s), Refills(s) 3, Pharmacy: [facility]/pharmacy #[id number], 170, cm, 12/25/20 11:04:00 EDT, Height/Length Dosing, 95, kg, 12/25/20 11:04:00 EDT, WeightDosing Protonix 40 mg Tab-EC: 40 mg = 1 tab(s), Oral, Daily, # 30 tab(s), Refills(s) 0 finasteride 5 mg Tab: 5 mg = 1 tab(s), Oral, Daily, # 90 tab(s), Refills(s) 3, Pharmacy: [facility]/pharmacy #[id number], 170, cm, 12/25/20 11:04:00 EDT, Height/Length Dosing, 95, kg, 12/25/20 11:04:00 EDT, Weight Dosing Documented Medications Documented CeleBREX 100 mg Cap: 100 mg = 1 cap(s), Oral, Daily, Refills(s) 0, Pain Eliquis 5 mg oral tablet: mg tab(s), Oral, BID, Refills(s) 0, Blood Thinner citalopram 10 mg Tab: mg tab(s), Oral, Daily, Refills(s) 0, Depression ferrous sulfate 325 mg oral enteric coated tablet: 325 mg = 1 tab(s), Oral, BID, Refills(s) 0, Prophylaxis levothyroxine 75 mcg (0.075 mg) Tab: mcg tab(s), Oral, Daily, Refills(s) 0, Thyroid simvastatin 20 mg Tab: 20 mg = 1 tab(s), Oral, Once a day (at bedtime), High cholesterol valsartan 40 mg Tab: 40 mg = 1 tab(s), Oral, Daily, Refills(s) 0, High blood pressure, Home Medications (10) Active CeleBREX 100 mg Cap 100 mg = 1 cap(s), Oral, Daily citalopram 10 mg Tab , Oral, Daily Eliquis 5 mg oral tablet , Oral, BID ferrous sulfate 325 mg oral enteric coated tablet 325 mg = 1 tab(s), Oral, BID finasteride 5 mg Tab 5 mg = 1 tab(s), Oral, Daily Flomax 0.4 mg Cap 0.4 mg = 1 cap(s), Oral, Daily levothyroxine 75 mcg (0.075 mg) Tab , Oral, Daily Protonix 40 mg Tab-EC 40 mg = 1 tab(s), Oral, Daily simvastatin 20 mg Tab 20 mg = 1 tab(s), Oral, Once a day (at bedtime) valsartan 40 mg Tab 40 mg = 1 tab(s), Oral, Daily , Medications (1) Active Scheduled: (0) Continuous: (1) Sodium Chloride 0.9% 1,000 mL 1,000 mL, IV, 20 mL/hr PRN: (0) Problem list: All Problems high cholesterol / SNOMED CT 8476544974 / Confirmed Abdominal pain, generalized / SNOMED CT 210358050 / Confirmed Acquired deaf mutism. / SNOMED CT 9197411267 / Confirmed Anemia in chronic kidney disease / SNOMED CT 0763979656 / Confirmed BPH with urinary obstruction / SNOMED CT 7562961113 / Confirmed Cardiomyopathy / SNOMED CT 243295639 / Confirmed Carotid bruit / SNOMED CT 7294748893 / Confirmed Chronic GERD / SNOMED CT 433570941 / Confirmed CKD (chronic kidney disease) stage 3, GFR 30-59 ml/min / SNOMED CT 4686806487 / Confirmed Congestive heart failure / SNOMED CT 44367502 / Confirmed Coronary atherosclerosis / SNOMED CT 5589280552 / Confirmed Deaf b/l needs sign language / SNOMED CT 56057845 / Confirmed Diabetes mellitus / SNOMED CT 267322497 / Confirmed Diaphragmatic hernia / SNOMED CT 16248083 / Confirmed Diverticulitis of colon / SNOMED CT 885305629 / Confirmed Eczema / SNOMED CT 45598669 / Confirmed Elevated PSA / SNOMED CT 8986235836 / Confirmed Epigastric pain / SNOMED CT 483060886 / Confirmed First degree atrioventricular block / SNOMED CT 178039296 / Confirmed Hyperlipidemia / SNOMED CT 01740444 / Confirmed Hyperparathyroidism due to renal insufficiency / SNOMED CT 33906685 / Confirmed Hypothyroidism / SNOMED CT 43976433 / Confirmed Incarcerated left inguinal hernia / SNOMED CT 325407859 / Confirmed Iron deficiency anemia / SNOMED CT 865005470 / Confirmed Left anterior fascicular block / SNOMED CT 18934080 / Confirmed Lumbar spondylosis / SNOMED CT 737748257 / Confirmed Mass of colon / SNOMED CT 0068301991 / Confirmed HI (mitral incompetence) / SNOMED CT 33326128 / Confirmed Obesity / SNOMED CT 2380012724 / Confirmed Orthostatic hypotension / SNOMED CT 62934164 / Confirmed Other dysphagia / SNOMED CT 28490441 / Confirmed Paroxysmal atrial fibrillation / SNOMED CT 921350586 / Confirmed Personal history of colonic polyps / SNOMED CT 3874718871 / Confirmed Tremor / SNOMED CT 19823865 / Confirmed Resolved: Acute eczema / SNOMED CT 0923318427 Resolved: BPH - benign prostatic hyperplasia / SNOMED CT 3362457285 Resolved: Chronic b (more content not included)...[facility] HospitalComment on above:Result Comment: Electronically Signed By: Mike Machado Jr., DO\Date and Time Signed: 07/21/23 08:45 ESTFacesheeton 07-06-2023 [id number]#1.00TIFSelect Medical Specialty Hospital - CantonPhysician Referralon 36-33-6467Djrkwrphb Referral [id number]#1.00[facility] HospitalPhycarepart[facility] rehabilitation hospitalan [id number]#1.00TIFSouthwest General Health CenterAmbulatory Visit Summaryon 89-94-2261Pqywzrkuco Visit Summary KATTY AYAD Mota :1945 Visit Date:07/05/2023 Ambulatory Visit Instructions Your Diagnosis Personal history of colonic polyps Your Care Team Attending Physician - Jamel MARTINEZ MD Primary Care Physician - Paulina Tyson MD Referring Physician - Paulina Tyson MD This Is Your Medications List Contact prescribing physician if questions or concerns apixaban (Eliquis 5 mg oral tablet) celecoxib (CeleBREX 100 mg Cap) citalopram (citalopram 10 mg Tab) ferrous sulfate (ferrous sulfate 325 mg oral enteric coated tablet) finasteride (finasteride 5 mg Tab) levothyroxine (levothyroxine 75 mcg (0.075 mg) Tab) pantoprazole (Protonix 40 mg Tab-EC) simvastatin (simvastatin 20 mg Tab) tamsulosin (Flomax 0.4 mg Cap) valsartan (valsartan 40 mg Tab) Procedures Performed Cystoscopy (06/05/2018), Right hemicolectomy (01/19/2016), Colonoscopy (12/30/2015), TRUS (transrectal ultrasound) guided cryoablation of prostate (01/13/2015), Cardiac catheterization, combined right and left heart. Discharge Vitals Heart Rate (Peripheral) 76 Respiratory Rate 16 Blood Pressure 120/78 Height 168.9 cm Height 66 in Weight 85 kg Weight 187 lb BMI 29.8 What to do next Scheduled Follow-Up Appointments Monday 10:25 AM EST Where: [facility] Medications What How Much When Instructions Unchanged apixaban (Eliquis 5 mg oral tablet) By Mouth 2 times a day Contact prescribing physician if questions or concerns Unchanged celecoxib (CeleBREX 100 mg Cap) 1 Capsules By Mouth Every day Contact prescribing physician if questions or concerns Unchanged citalopram (citalopram 10 mg Tab) By Mouth Every day Contact prescribing physician if questions or concerns Unchanged ferrous sulfate (ferrous sulfate 325 mg oral enteric coated tablet) By Mouth 2 times a day Contact prescribing physician if questions or concerns Unchanged finasteride (finasteride 5 mg Tab) 1 Tablets By Mouth Every day Contact prescribing physician if questions or concerns Unchanged levothyroxine (levothyroxine 75 mcg (0.075 mg) Tab) By Mouth Every day Contact prescribing physician if questions or concerns Unchanged pantoprazole (Protonix 40 mg Tab-EC) 1 Tablets By Mouth Every day Contact prescribing physician if questions or concerns Unchanged simvastatin (simvastatin 20 mg Tab) 1 Tablets By Mouth Once a day (at bedtime) Contact prescribing physician if questions or concerns Unchanged tamsulosin (Flomax 0.4 mg Cap) 1 Capsules By Mouth Every day Contact prescribing physician if questions or concerns Unchanged valsartan (valsartan 40 mg Tab) 1 Tablets By Mouth Every day Contact prescribing physician if questions or concerns Allergies No Known Allergies Problems Ongoing - Any problem that you are currently receiving treatment for. Acquired deaf mutism. Anemia in chronic kidney disease BPH with urinary obstruction Cardiomyopathy Carotid bruit CKD (chronic kidney disease) stage 3, GFR 30-59 ml/min Congestive heart failure Coronary atherosclerosis Diabetes mellitus Diaphragmatic hernia Diverticulitis of colon Eczema Elevated PSA First degree atrioventricular block Hyperlipidemia Hyperparathyroidism due to renal insufficiency Hypothyroidism Iron deficiency anemia Left anterior fascicular block Lumbar spondylosis Obesity Orthostatic hypotension Paroxysmal atrial fibrillation Personal history of colonic polyps Tremor Historical - Any problem that you are no longer receiving treatment for. Acute eczema BPH - benign prostatic hyperplasia Chronic back pain Chronic deafness Heart disease Hyperlipidemia Patient Survey You may receive a survey via text or e-mail asking about your office visit. Please share your experience with us by completing your survey. We appreciate your feedback and thank you for choosing us for your care. 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.1) Gait disturbance (781.2) (R26.9) CHF (congestive heart failure), NYHA class II (428.0) (I50.9) Risk for falls (V15.88) (Z91.81) Class 1 obesity with body mass index (BMI) of 30.0 to 30.9 in adult (278.00,V85.30) (E66.9,Z68.30) BPH (benign prostatic hyperplasia) (600.00) (N40.0) Medication course changed (V58.69) (Z79.899) Diarrhea (787.91) (R19.7) Dizziness (780.4) (R42) Orders Anticoagulated, Class 1 obesity with body mass index (BMI) of 30.0 to 30.9 in adult, Gait disturbance, Persistent atrial fibrillation, Risk for falls Cardiology - Valve and Structural Heart Program Referral Evaluation and Treatment Evaluate AND Treat Status: Hold For - Scheduling Requested for: 06Feb2023 Class 1 obesity with body mass index (BMI) of 30.0 to 30.9 in adult Healthy Weight Tips; Status:Complete; Done: 06Feb2023 Some eating tips that can help you lose weight.; Status:Complete; Done: 06Feb2023 Patient Instructions Please bring all medicines, vitamins, and herbal supplements with you when you come to the office. Prescriptions will not be filled unless you are compliant with your follow up appointments or have a follow up appointment scheduled as per instruction of your physician. Refills should be requested at the time of your visit. Fall Prevention education given may cancel PFT Follow up in 3 months Chief Complaint AYAD DE LA ROSA is being seen for a 6 week follow-up of. History of Present Illness 77-year-old with congestive heart failure was most recently seen about 6 weeks ago. At that time westarted Diovan and down titrated the ProAmatine. We are trying to optimize his congestive heart failure medications. Does not report any falls or orthostatic symptoms, blood pressure sitting 114/58 standing blood pressure 104/58. He averages about 3 falls a year. Most of them occur after he has been sleeping and he gets up before he makes sudden changes in posture. Patient is accompanied by his , and we have the staff interpreter and mute patients. Patient says he is a little short of breath with walking. Then he says the shortness of breath has been the same in the last 6 months. At times he tells me that the unsteady drunken gait which I felt was related to the amiodarone is actually better with discontinuation of this medication at other times he says he is still unsteady. Very difficult historian. Magnesium is causing diarrhea. Laboratory data from 01/05/2023 was reviewed, sodium 138 potassium 4.9 BUN 24 creatinine 1.66 in November 2022 BNP level was elevated at 346. Towards the end of the visit patient started complaining of persistent constipation, which I believe is related to the ProAmatine. Patient is also on BPH medications however he is not complaining of urinary retention. No orthopnea. No leg edema. Fell this a.m. and hit face. No major outwardly injury. No complaints of headache blurred vision or change in consciousness or mentation Assessment: 1. Nonischemic cardiomyopathy LVEF has improved from 25% to about 40% based on perfusion study of July 2022 2. Abnormal EKG with marked prolongation of NH interval to 302, sinus bradycardia at 59, left axis deviation and pattern of anterior septal myocardial infarction however unchanged from EKG of May2022 3. No clinical pulmonary toxicity of amiodarone, liver enzymes are normal, TSH was normal in July 2022. Chest x-ray in July showed bibasilar atelectasis. Patient does not report any shortnessof breath 4. Between October and May 2022 patient was placed on ProAmatine. This is not a good medication being an alpha agonist, particularly in a patient with BPH who also takes medications for BPH. The BPH medication can also cause orthostatic hypotension. Patient has cardiomyopathy and for that he would benefit from being on an angiotensin receptor xavier or Entresto, would not start carvedilol at th is time given marked prolongation of NH interval. However we may first have to down titrate the ProAmatine before starting anything else. 5. I am concerned that patient has neurological side effects from amiodarone such as tremor and drunken gait. 6. Both patient and are deaf, and they also have difficulty with their speech, which makes communication somewhat difficult but can be accomplished with extra effort. 7. Exertional shortness of breath-differential diagnosis includes chronotropic blunting versus amiodarone related 8. 48-hour Holter monitor November 2022-prolonged first-degree AV block, ventricular premature beats that comprised 11.5% of the total QRS complexes, longest R to R interval of 2 seconds occurred at 8:21 AM, patient did not report any symptoms atrial fibrillation was not identi (more content not included)... [facility] TouchworksTobacco Screening.on 61-12-5046Omprtrg use status CPHSb) No [facility] DO Work Phone: Office Visit (Cardiology)on 97-70-6401Nadtye-up visit Diagnoses/Problems Assessed Sympathotonic orthostatic hypotension (458.0) (I95.1) Stage 3a chronic kidney disease (585.3) (N18.31) Persistent atrial fibrillation (427.31) (I48.19) Non-ischemic cardiomyopathy (425.4) (I42.8) Mixed hyperlipidemia (272.2) (E78.2) High risk medication use (V58.69) (Z79.899) CHF (congestive heart failure), NYHA class II (428.0) (I50.9) Encounter to discuss test results (V65.49) (Z71.2) Anticoagulated (V58.61) (Z79.01) Never a smoker Class 1 obesity with body mass index (BMI) of 30.0 to 30.9 in adult (278.00,V85.30) (E66.9,Z68.30) Gait disturbance (781.2) (R26.9) Orders CHF (congestive heart failure), NYHA class II, Non-ischemic cardiomyopathy Start: Valsartan 40 MG Oral Tablet; TAKE 1 TABLET DAILY Basic Metabolic Panel; Status:Active; Requested for:09Jan2023; Persistent atrial fibrillation Start: Magnesium Oxide 400 MG Oral Tablet; TAKE 1 TABLET BY MOUTH TWICE DAILY IO EKG Electrocardiogram- 12 Lead; Status:Active - Perform Order; Requested for:26Dec2022; SocHx: Never a smoker Tobacco Use Screening; Status:Complete; Done: 26Dec2022 Sympathotonic orthostatic hypotension Start: Midodrine HCl - 5 MG Oral Tablet; TAKE 1 TABLET 3 TIMES DAILY. TAKE FIRST DOSE WHEN GETTING OUT OF BED, 2ND DOSE AT 11 am AND 3RD DOSE AT 4 PM Unlinked Stop: Midodrine HCl - 10 MG Oral Tablet Patient Instructions Please bring all medicines, vitamins, and herbal supplements with you when you come to the office. Prescriptions will not be filled unless you are compliant with your follow up appointments or have a follow up appointment scheduled as per instruction of your physician. Refills should be requested at the time of your visit. decrease Midodrine to 5mg 3 times per day. Start Diovan 40mg daily Start Magnesium twice daily may cut back to once a day if diarrhea starts. Follow up in 6 weeks Chief Complaint AYAD DE LA ROSA is being seen for a 4 week follow-up of. History of Present Illness Today we have the luxury of the language interpreter, who provides us with a lot of information. Patient is accompanied by his to the office. At his last office visit we discontinued amiodarone because Isensed that he was having several side effects of amiodarone such as drunken gait, tendency to bumpinto objects. He says that those symptoms have improved considerably, but later on he says that hisgait is quite wobbly. He does not complain of any shortness of breath or chest discomfort. His tells me that he is always resting and sleeping, and not doing much work. Clinically he does not appear volume overloaded. For the last 2 to 3 days patient has been having GERD symptoms. Continues to complain of orthostatic lightheadedness. Remains on midodrine, the dose of which I think we can cut back, given today's blood pressure readings. Patient denies any falls or bleeding diathesis. The language interpreter's name is Mag Dumont. Laboratory data reviewed, free T4 is elevated at 1.34. TSH is 2.22. Echo and Holter results were reviewed. Assessment: 1. Nonischemic cardiomyopathy LVEF has improved from 25% to about 40% based on perfusion study of July 2022 2. Abnormal EKG with marked prolongation of NH interval to 302, sinus bradycardia at 59, left axis deviation and pattern of anterior septal myocardial infarction however unchanged from EKG of May2022 3. No clinical pulmonary toxicity of amiodarone, liver enzymes are normal, TSH was normal in July 2022. Chest x-ray in July showed bibasilar atelectasis. Patient does not report any shortnessof breath 4. Between October and May 2022 patient was placed on ProAmatine. This is not a good medication being an alpha agonist, particularly in a patient with BPH who also takes medications for BPH. The BPH medication can also cause orthostatic hypotension. Patient has cardiomyopathy and for that he would benefit from being on an angiotensin receptor xavier or Entresto, would not start carvedilol at th is time given marked prolongation of NH interval. However we may first have to down titrate the ProAmatine before starting anything else. 5. I am concerned that patient has neurological side effects from amiodarone such as tremor and drunken gait. 6. Both patient and are deaf, and they also have difficulty with their speech, which makes communication somewhat difficult but can be accomplished with extra effort. 7. Exertional shortness of breath-differential diagnosis includes chronotropic blunting versus amiodarone related 8. 48-hour Holter monitor November 2022-prolonged first-degree AV block, ventricular premature beats that comprised 11.5% of the total QRS complexes, longest R to R interval of 2 seconds occurred at 8:21 AM, patient did not report any symptoms atrial fibrillation was not identified. 9. Echocardiogram November 2022-left atrial diameter 5.9 cm trace mitral regurgitation trace tricuspidregurgitation no pericardial or pleural effusion normal IVC size (more content not included)...[facility] TouchworksTobacco Screening.on 67-75-0973Tinee depression screening assessmentNo-[facility] [facility] DO Work Phone: Fall risk assessmenta) No falls within the last year [facility] DO Work Phone: Tobacco use status CPHSb) NoM[facility] [place] DO Work Phone: Cardiovasc Arrhythmia Resultson 65-49-0670Awbetltdhn Arrhythmia ResultsReason For Visit Reason for Visit: Holter Monitor: AYAD is here for the application of a 48 hour Holter monitor. Ordering Physician: LAURA Diagnosis: DIZZY SOB [facility] equipment agreement signed. AYAD understands monitor is to be returned on: 12-08-22 Holter monitor returned and downloaded. Holter monitor sent to [facility] to print and place on Dr. Viki Cooney MD desk on 12/14/22 todictate. Procedure 48-hour Holter monitor is being performed in patient with atrial fibrillation and dizziness. Predominant rhythm is sinus, minimum sinus rate 50 bpm occurring at 3:11 AM, average sinus rate 64 bpm and maximum sinus rate 107 bpm occurring at 1:30 PM. There were a total of 19,939 ventricular ectopic beats, this comprised 11.5% of the total QRS complexes. There were 14 ventricular triplets and 234 ventricular couplets. There were episodes of ventricular bigeminy and ventricular trigeminy. There were rare supraventricular premature beats Longest R to R interval was 2 seconds and occurred at 8:21 AM. Prolonged first-degree AV block with NH interval up to 360 ms is noted. There is evidence of type I second-degree AV block. ST-T abnormalities are noted. Acutely. QTc does not seem prolonged. There is an episode of tachycardia around 1:29 PM, ventricular rate is 103 210 bpm, QRS is narrow, activity level is not documented, could be sinus tachycardia if activity level is appropriate. No clear-cut atrial fibrillation is identified. Summary : Patient has prolonged first-degree AV block, ventricular premature beats that comprised 11.5% of the total QRS complexes, and the longest R to R interval of 2 seconds which occurs at 8:21 AM. Patientdid not report any symptoms. Atrial fibrillation is not identified. Diagnosis/Problems Assessed Dizziness (780.4) (R42) Shortness of breath (786.05) (R06.02) Future Appointments Date/TimeProviderSpecialtySite 12/26/2022 09:30 MarcoprasadCameronViki, [id number] [facility] [address] 250 DO Signatures Electronically signed by : Shawnee Cruz MA; Dec 06 2022 3:39PM EST (Author) Electronically signed by : Viki Cooney MD; Dec 21 2022 1:40PM EST (Author) NormalUH TouchworksAlanine aminotransferase [Enzymatic activity/volume] in Serum or PlasmaOrdered By: Viki Cooney on 33-02-6921IYE [Catalytic activity/Vol]16 U/L7-52Mercy HealthAlbumin [Mass/volume] in Serum or Plasma by Bromocresol green (BCG) dye binding methoOrdered By: Viki Cooney on 72-56-5778Xzpvagn BCG dye [Mass/Vol]3.8 g/dL3.5-5.7FPremier HealthAlkaline phosphatase [Enzymatic activity/volume] in Serum or PlasmaOrdered By: Viki Cooney 90-45-2490VYO [Catalytic activity/Vol]57 U/S69-059YugbzwxzjMercy HealthAspartate aminotransferase [Enzymatic activity/volume] in Serum or PlasmaOrdered By: Viki Cooney 49-75-2997PBB [Catalytic activity/Vol]17 U/O86-29ZnidvqpvbMercy HealthBilirubin.total [Mass/volume] in Serum or PlasmaOrdered By: Viki Cooney 35-24-8415Jysvskssm [Mass/Vol]0.8 mg/dL0.3-1.0Mercy HealthCalcium [Mass/volume] in Serum or PlasmaOrdered By: Viki Cooney 07-34-2327Lyypynt [Mass/Vol]8.5 mg/dL8.6-10.3FPremier HealthCarbon dioxide, total [Moles/volume] in Serum or PlasmaOrdered By: Viki Cooney 12-04-7668SF4 [Moles/Vol]26.6 mmol/L21.0-31.0Mercy HealthChloride [Moles/volume] in Serum or PlasmaOrdered By: Viki Cooney 11-61-0052Gzsxsyie [Moles/Vol]107 mmol/W20-338FoiuplccyMercy HealthCreatinine [Mass/volume] in Serum or PlasmaOrdered By: Viki Cooney on 40-02-4333Wazueijurt [Mass/Vol]1.64 mg/dL0.70-1.30Mercy HealthGlobulin Calc (S) [Mass/Vol]Ordered By: Viki Cooney on 25-38-8828Iqalcgjr (S) [Mass/Vol]2.7 g/dL [facility] HealthGlucose [Mass/volume] in Serum or PlasmaOrdered By: Viki Cooney on 33-40-5390Mygclcm [Mass/Vol]94 mg/rS56-062BwupjvmrgMercy HealthComment on above:ADA recommended reference rangeRandom Glucose Reference Range is dependent on time and content of last meal. Glucose of more than 200 mg/dL in a nonstressed, ambulatory subject supports the diagnosisof Diabetes Mellitus.Natriuretic peptide B [Mass/Vol]Ordered By: Viki Cooney on 19-15-6405Gpzwuhgipbs peptide B (Bld) [Mass/Vol]346.0 pg/mL5-100 [facility] HealthNo Panel InformationOrdered By: Viki Cooney on 09-89-2266Vpljaaisi GFR (CKD-EPI)42.814 mL/MinMercy Health Pharmacy Creatinine Clearance (ChemN/[facility] HospitalNo Panel Informationon 46-90-4420626.0\S\346.0above high nhcorpggd7-168KN-Xikkr [facility] 250 DO Work Phone: Comment on above:PERFORMED BY:[facility] [place], [place] [phone] MEDICAL DIRECTORASHLEY BECERRA M.D.42.814\S\42.814NormalMP-[facility] [address] DO Work Phone: [phone]\S\3.4Hglbyi8.5-5.7MP-[facility] [facility] DO Work Phone: [phone]\S\6.9Otdwcm5.4-8.9MP-[facility] [facility] DO Work Phone: [phone]\S\8.5below low threshold8.6-10.3MP-[facility] DO Work Phone: [phone]\S\9.7Blwupu7.0-15.0MP-[facility] [address] DO Work Phone: [phone]\S\26.6Izeokv32.0-31.0MP-[facility] [facility] DO Work Phone: [phone]\S\637Wrdojh33-800TY-Akhsb [facility] DO Work Phone: [phone]\S\00Gvlgrf53-001QB-Czwui [facility] DO Work Phone: [phone]\S\47Phzafo3-99WW-Bljij [facility] DO Work Phone: [phone]\S\06Raqqde62-56DL-Ttdki [facility] DO Work Phone: [phone]\S\0.7Zjbunw4.3-1.0MP-[facility] DO Work Phone: [phone]\S\1.4NormalMP-[facility] DO Work Phone: [phone]\S\2.7NormalMP-[facility] DO Work Phone: [phone]\S\4.5Uvxkgm3.5-5.1MP-[facility] DO Work Phone: [phone]\S\165Sbtglq498-254WQ-Mlxqb [facility] DO Work Phone: [phone]\S\1.64above high threshold0.70-1.30MP-[facility] DO Work Phone: [phone]\S\59Jdaiui2-50LX-[facility]qmji[facility] 250 DO Work Phone: [phone]\S\45Rvgwbn34-992CY-KczwwCambridge [facility] 250 DO Work Phone: Comment on above:Random Glucose Reference Range is dependent on time and content of last meal. Glucose of more than 200 mg/dL in a nonstressed, ambulatory subject supports the diagnosis of Diabetes Mellitus. ADA recommended reference range1.34\S\1.34above high threshold0.61-1.12MP-[facility] 250 DO Work Phone: [phone]\S\2.67Qohnjc6.45-5.33MP-[facility] 250 DO Work Phone: Comment on above:PERFORMED BY:[address] [place], [place] [phone] MEDICAL DIRECTORASHLEY BECERRA M.D.-[facility] 250 DO Work Phone: Potassium [Moles/volume] in Serum or PlasmaOrdered By: Viki Cooney on 66-08-7672Urdlqtemr [Moles/Vol]4.4 mmol/L3.5-5.1FPremier HealthProtein [Mass/volume] in Serum or PlasmaOrdered By: Viki Cooney on 26-87-3112Qrtxcag [Mass/Vol]6.5 g/dL6.4-8.9Doctors Hospitalerum or plasma albumin/globulin mass ratioOrdered By: Viki Cooney on 69-17-9112Tpiiasu/Globulin [Mass ratio]1.4 {ratio}Doctors Hospitalerum or plasma anion gap determinationOrdered By: Viki Cooney on 22-88-6991Jifzs gap [Moles/Vol]9.8 mmol/L6.0-15.0Doctors Hospitalodium [Moles/volume] in Serum or PlasmaOrdered By: Viki Cooney on 51-49-3651Ksjhkk [Moles/Vol]139 mmol/W211-848LgjvwhuxsMercy Health Thyrotropin [Units/volume] in Serum or PlasmaOrdered By: Viki Cooney on 39-08-8028RNA Qn2.22 m[IU]/L0.45-5.33Mercy HealthThyroxine (T4) free [Mass/volume] in Serum or PlasmaOrdered By: Viki Cooney on 12-02-2022 Free T4 [Mass/Vol]1.34 ng/dL0.61-1.12Mercy HealthUrea nitrogen [Mass/volume] in Serum or PlasmaOrdered By: Viki Cooney on 12-02-2022 Urea nitrogen [Mass/Vol]21 mg/dL7-25Mercy HealthOffice Visit (Cardiology)on 24-22-4173Tzrvqo-up visitDiagnoses/Problems Assessed Anticoagulated (V58.61) (Z79.01) High risk medication use (V58.69) (Z79.899) Mild CAD (414.00) (I25.10) Non-ischemic cardiomyopathy (425.4) (I42.8) BPH (benign prostatic hyperplasia) (600.00) (N40.0) Stage 3a chronic kidney disease (585.3) (N18.31) Persistent atrial fibrillation (427.31) (I48.19) CHF (congestive heart failure), NYHA class II (428.0) (I50.9) Sympathotonic orthostatic hypotension (458.0) (I95.1) Abnormal EKG (794.31) (R94.31) First degree AV block (426.11) (I44.0) Class 1 obesity with body mass index (BMI) of 30.0 to 30.9 in adult (278.00,V85.30) (E66.9,Z68.30) Never a smoker Shortness of breath (786.05) (R06.02) Dizziness (780.4) (R42) Orders Abnormal EKG, Shortness of breath Echocardiogram; Status:Hold For - Scheduling,Retrospective Authorization; Requested for:[id number]; CHF (congestive heart failure), NYHA class II, Mild CAD, Non-ischemic cardiomyopathy, Shortness of breath, Stage 3a chronic kidney disease Comprehensive Metabolic Panel; Status:Active - Retrospective Authorization; Requested for:28Nov2022; CHF (congestive heart failure), NYHA class II, Shortness of breath Brain Natriuretic Peptide BNP; Status:Active - Retrospective Authorization; Requested for:32Qgl9431; Class 1 obesity with body mass index (BMI) of 30.0 to 30.9 in adult Healthy Weight Tips; Status:Complete - Retrospective Authorization; Done: 09Pts3524 Some eating tips that can help you lose weight.; Status:Complete - Retrospective Authorization; Done: [id number] Dizziness, Shortness of breath IO Holter Monitor up to 48 Hrs; Status:Active - Perform Order,Retrospective Authorization; Requested for:28Nov2022; High risk medication use, Persistent atrial fibrillation T4 - Free Thyroxine, Serum; Status:Active - Retrospective Authorization; Requested for:36Ikx5131; TSH - Thyroid Stimulating Hormone, Serum; Status:Active - Retrospective Authorization; Requested for:41Kft4514; High risk medication use, Persistent atrial fibrillation, Shortness of breath Pulmonary Function Test with DLCO; Status:Active - Retrospective Authorization; Requested for:74Teh2900; Pulmonary Function Test with/without bronchodilators; Status:Active - Retrospective Authorization; Requested for:28Nov2022; Mixed hyperlipidemia Renew: Simvastatin 20 MG Oral Tablet; TAKE 1 TABLET DAILY DIRECTED Persistent atrial fibrillation Stop: Amiodarone HCl - 200 MG Oral Tablet IO EKG Electrocardiogram- 12 Lead; Status:Complete; Done: 28Nov2022 SocHx: Never a smoker Tobacco Use Screening; Status:Complete; Done: 28Nov2022 Tobacco Use Screening; Status:Complete; Done: 28Nov2022 Patient Instructions Please bring all medicines, vitamins, and herbal supplements with you when you come to the office. Prescriptions will not be filled unless you are compliant with your follow up appointments or have a follow up appointment scheduled as per instruction of your physician. Refills should be requested at the time of your visit. Follow up in 4 weeks Chief Complaint AYAD DE LA ROSA is being seen for a 6 month follow-up of. History of Present Illness Patient is new to this provider. Patient is accompanied by his to the office. They are both deaf. They also have speech difficulties. As a result, considerable amount of time was spent writing out questions, they are able to communicate through a combination of writing and hand gestures. Previously seen by Dr. Lockhart, and subsequently by Asya Mendoza. I have reviewed notes by both providers. Per Dr. Lockhart's most recent office note dated November 01, 2021: Mr. De La Rosa is a 76-year-old male who is seen back today for follow-up on his cardiomyopathy and atrial fibrillation. Communication remains a limiting factor as both the patient and his are deafmaking communication difficult. He has not been seen since October 2020. He was cardioverted again inApril 2020 but canceled his follow-up. He has a history of what is considered to be a nonischemic cardiomyopathy seen initially in 2018 with an ejection fraction that at one time was estimated at 20%. Heart catheterization was done in [place] demonstrated mostly mild disease in the 30% range in the LAD. Initially he was placed on amiodarone and was then cardioverted and did maintain sinus rhythm and he had significant improvement in his symptoms and ejection fraction improved into the 45 to 50% range. At the time of his last office visit in October 2020 he was back in atrial fibrillation and he again was cardioverted again. He is on amiodarone now and EKG today demonstrates sinus rhythm. He seems to indicate that he is doing reasonably well. Still has some shortness of breath with activity. No chest pain. No known recurrence of atrial fibrillation since his last cardioversion. Assessment ( as per Asya Mendoza [employer] note of 05/2022 :) Mild CAD (414.00) (I25.10) December 2017 cardiac cath Mid LAD 30% Proximal circumflex 30% RCA nondomina (more content not included)...NormalUH TouchworksTobacco Screening.on 74-13-5318Wznk risk assessmenta) No falls within the last yearMP- [facility] Work Phone: Tobacco use status CPHSb) NoMP-[facility] DO Work Phone: Tobacco Screening.YesMP-[facility] DO Work Phone: Albumin [Mass/volume] in Serum or PlasmaOrdered By: Chad Field on 40-81-3780Cvpccyu [Mass/Vol]3.5 g/dL3.2-5.5FPremier HealthAutomated erythrocytes count in urine sediment (number/area) Ordered By: Chad Field on 96-11-0278OCK Auto (Urine sed) [#/Area]None seen [HPF]0-4FPremier HealthAutomated leukocytes count in urine sediment (number/area)Ordered By: Chad Perezdir on 06-34-8755XDT Auto (Urine sed) [#/Area]None seen [HPF]0-4FPremier HealthBilirubin Test strip Ql (U)Ordered By: Chad Field on 88-20-3336Yqfufpxoq Ql (U)NegativeNegative Mercy HealthCT biopsyOrdered By: Chad Field on 10-24-2022 Transferrin [Mass/Vol]218 mg/bP664-936RdtxbeirlMercy HealthCalcium [Mass/volume] in Serum or PlasmaOrdered By: Chad Boldenr on 83-34-6013Pyjgjle [Mass/Vol]8.9 mg/dL8.2-10.2FPremier HealthCarbon dioxide, total [Moles/volume] in Serum or PlasmaOrdered By: Chad Field on 09-82-5769IR4 [Moles/Vol]27.2 mmol/L22.0-30.0Mercy HealthChloride [Moles/volume] in Serum or PlasmaOrdered By: Chad Perezdir on 83-06-1416Zqvfkilr [Moles/Vol]102 mmol/L88-911JyhwaiuvlMercy HealthColor Auto (U) Ordered By: Chad Field on 94-96-3721Cobgi (U)YellowYellowMercy HealthCreatinine and Glomerular filtration rate.predicted panel (S/P/Bld)Ordered By: Chad Field on 57-42-2876Sbhwksmhaf [Mass/Vol]1.59 mg/dL 0.64-1.27Mercy HealthErythrocyte distribution width Auto (RBC) [Ratio]Ordered By: Chad Field on 26-91-3962Icxzvwkbclq distribution width (RBC) [Ratio]14.1 %12.0-14.8Mercy HealthEstimated glomerular filtration rate (GFR) non- AmericanOrdered By: Chad Field on 35-62-5806SJL/1.73 sq M.predicted among non-blacks MDRD (S/P/Bld) [Vol rate/Area]42 mL/MinMercy HealthFerritin [Mass/volume] in Serum or PlasmaOrdered By: Chad Field on 00-18-5070Lfvfgqjf [Mass/Vol]141.3 ng/mL23.9-336.2FPremier HealthGlucose [Mass/volume] in Serum or PlasmaOrdered By: Chad Field on 16-35-5778Inuhsxw [Mass/Vol]96 mg/eL98-159 Mercy HealthComment on above:ADA recommended reference rangeRandom Glucose Reference Range is dependent on time and content of last meal. Glucose of more than 200 mg/dL in a nonstressed, ambulatory subject supports the diagnosisof Diabetes Mellitus.Hematocrit Auto (Bld) [Volume fraction]Ordered By: Chad Field on 99-29-3628Uywdvinjqt (Bld) [Volume fraction] 44.4 %38.8-50.0Mercy HealthHemoglobin [Mass/volume] in BloodOrdered By: Chad Field on 26-93-9511Ryghrtarla (Bld) [Mass/Vol]14.9 g/dL 13.0-17.0Mercy HealthIron [Mass/volume] in Serum or Plasma Ordered By: Chad Field on 53-84-9481Bdcy [Mass/Vol]107 ug/vK81-917EnlcnsdysMercy HealthIron binding capacity [Mass/volume] in Serum or Plasma Ordered By: Chad Field on 29-48-5016Rqoj binding capacity [Mass/Vol]305 ug/dL 255-450Mercy HealthIron saturation [Mass Fraction] in Serum or PlasmaOrdered By: Chad Field on 39-45-6722Jyky saturation [Mass fraction] 35.1 %20-50Mercy HealthKetones Auto test strip (U) [Mass/Vol]Ordered By: Chad Field on 59-06-2173Nfyvzka (U) [Mass/Vol]Negative NegativeMercy HealthLaboratory - Chemistry and Chemistry - challengeOrdered By: Chad Field on 30-27-4641Ptykuaymh [Mass/Vol]2.0 mg/dL 1.6-2.6FPremier HealthLaboratory - UrinalysisOrdered By: Chad Field on 23-51-8581Qnhaubh casts LM Ql (Urine sed)None seen [LPF]0-8Mercy HealthLeukocytes [#/volume] corrected for nucleated erythrocytes in Blood by Automated counOrdered By: Chad Field on 28-01-5967GHR corrected for nucl RBC Auto (Bld) [#/Vol]6.6 10*3/uL4.1-10.5FAultman Orrville HospitalH Auto (RBC) [Entitic mass]Ordered By: Chad Field on 10-24-2022 MCH (RBC) [Entitic mass]29.9 pg27.5-35.2FAultman Orrville HospitalHC Auto (RBC) [Mass/Vol]Ordered By: Chad Field on 49-44-6274EKFL (RBC) [Mass/Vol] 33.6 g/dL32.5-35.6FPremier HealthMCV Auto (RBC) [Entitic vol] Ordered By: Chad Field on 12-96-7805XQP (RBC) [Entitic vol]89.1 fL83.5-101 Mercy HealthNitrite Test strip Ql (U)Ordered By: Chad Field on 00-33-1321Rekbxyk Ql (U)NegativeNegativeMercy HealthNo Panel InformationOrdered By: Chad Field on 65-66-223263238813-Sqtjkmx Vitamin D Total34.8 ng/gN31-839SjmsjatvlMercy HealthComment on above:VITAMIN D STATUS 25(OH)VITAMIN D RANGE (ng/mL) Deficient <20 Insufficient 20 to <17Dosotbptdj93 to 100Reference: Altaf MF,Dejuan ALANIZ, Eleuterio BUSCH, et al. Evaluation,treatment, and prevention of vitamin D deficiency; an Endocrine Society clinical practice guideline. JCEM. 2010; 96(7):1911-30. Estimated GFR ()51 mL/MinMercy Health Comment on above:GFR estimated reference range: According to KDOQI guidelines, <60 ml/min/1.73m2 is sufficient todiagnose a patient with chronic kidney disease.Pharmacy Creatinine Clearance (ChemN/[facility] Parathyrin.intact [Mass/volume] in Serum or PlasmaOrdered By: Chad Field on 32-37-0415Prwyzauasv.intact [Mass/Vol]73.0 pg/uY15-82RjlrdcqdmMercy HealthPhosphate [Mass/volume] in Serum or PlasmaOrdered By: Chad Field on 07-88-2616Qzxaedebm [Mass/Vol]2.9 mg/dL2.5-4.6FPremier Health Platelet mean volume Auto (Bld) [Entitic vol]Ordered By: Chad Field on 28-66-8411Qogzvfaf mean volume (Bld) [Entitic vol]8.0 fL6.6-10.1FPremier HealthPlatelets Auto (Bld) [#/Vol]Ordered By: Chad Field on 99-13-6622Kbxyxdotk (Bld) [#/Vol]236 10*3/oP674-555IjrighlhhMercy HealthPotassium [Moles/volume] in Serum or PlasmaOrdered By: Chad Field on 34-21-0490Cavggoato [Moles/Vol]4.8 mmol/L3.5-5.1FPremier HealthProtein Auto test strip (U) [Mass/Vol]Ordered By: Chad Field on 49-11-5170Xlmncpa (U) [Mass/Vol]NegativeNegativeMercy HealthRBC Auto (Bld) [#/Vol]Ordered By: Chad Field on 41-70-2617FXV (Bld) [#/Vol]4.98 10*6/uL3.90-5.60Doctors Hospitalerum or plasma anion gap determinationOrdered By: Chad Field on 66-42-7545Ktzax gap [Moles/Vol]10.6 mmol/L6.0-15.0Doctors Hospitalodium [Moles/volume] in Serum or PlasmaOrdered By: Chad Field on 88-26-8981Unbakh [Moles/Vol]135 mmol/V531-847GiupskevdDoctors Hospitalpecific gravity Auto test strip (U) [Rel density]Ordered By: Chad Field on 15-80-6640Edtvxiis gravity (U) [Rel density]1.0151.001-1.030[facility] Squamous epithelial cells detection in urine sediment by light microscopyOrdered By: Chad Field on 29-66-9941Ywsvkbxeed cells.squamous LM Ql (Urine sed)None seen [HPF]0-2FPremier HealthUrate [Mass/volume] in Serum or PlasmaOrdered By: Chad Field on 65-31-3065Mgigr [Mass/Vol]5.7 mg/dL2.6-7.2 [facility] HealthUrea nitrogen [Mass/volume] in Serum or Plasma Ordered By: Chad Field on 44-45-3361Gkqi nitrogen [Mass/Vol]16 mg/dL9-23 Mercy HealthUrine bacteria detection by automated method Ordered By: Chad Field on 93-53-0668Ppngcmzv Auto Ql (U)None seenNone Seen Mercy HealthUrine clarity by refractometry automatedOrdered By: Chad Field on 67-95-9217Kmudpzv Refractometry automated (U)ClearClear Mercy HealthUrine glucose measurement by automated test strip (mass/volume)Ordered By: Chad Field on 86-22-7887Myyjtwi Auto test strip (U) [Mass/Vol]Normal mg/dLNormTriHealth McCullough-Hyde Memorial HospitalUrine hemoglobin detection by automated test stripOrdered By: Chad Field on 77-59-4108Erkcxngxyo Auto test strip Ql (U)NegativeNegativeMercy HealthUrine leukocyte esterase detection by automated test stripOrdered By: Chad Field on 41-03-8277Mvdwvynfi esterase Auto test strip Ql (U)Negative NegativeMercy HealthUrobilinogen Auto test strip (U) [Mass/Vol]Ordered By: Chad Field on 47-02-5579Rgcwxcuhuhcs (U) [Mass/Vol]Normal mg/dLNormTriHealth McCullough-Hyde Memorial HospitalpH Auto test strip (U)Ordered By: Chad Field on 33-89-0407sA (U)6.5 [pH]5.0-9.0[facility] Creatinine and Glomerular filtration rate.predicted panel (S/P/Bld)Ordered By: Asya Mendoza on 59-43-9973Ssnvftraow [Mass/Vol]1.73 mg/dL0.64-.Mercy HealthEstimated glomerular filtration rate (GFR) non- AmericanOrdered By: Asya Mendoza on 55-69-6315GLX/1.73 sq M.predicted among non- blacks MDRD (S/P/Bld) [Vol rate/Area]39 mL/MinMercy Health No Panel InformationOrdered By: Asya Mendoza on 08-31-3291Lznzlmaky GFR ()47 mL/MinMercy HealthComment on above:GFR estimated reference range: According to KDOQI guidelines, <60 ml/min/1.73m2 is sufficient todiagnose a patient with chronic kidney disease.Pharmacy Creatinine Clearance (ChemN/[facility]. [facility] HospitalNo Panel Informationon .90\S\4.90Omvtcf2.45-5.33MP-[facility] DO Work Phone: Comment on above:PERFORMED BY:[address] [place], [place] [phone] MEDICAL DIRECTORASHLEY BECERRA M.D.19\S\81Ldaknp38-45NG-Cdvzc [facility] 250 DO Work Phone: [phone]\S\9.3Tiarqg2.2-10.2MP-[facility] DO Work Phone: [phone]\S\9.8Hmtexn4.0-15.0MP-[facility] DO Work Phone: [phone]\S\27.3Gjexsb38.0-30.0MP-[facility] DO Work Phone: [phone]\S\170Otoknf22-874SQ-Encjj [facility] 250 DO Work Phone: [phone]\S\4.8Nwgnqp2.5-5.1MP-[facility] DO Work Phone: [phone]\S\894Zcavdo684-471BW-Vttlu [facility] 250 DO Work Phone: [phone]\S\47NormalMP-[facility] DO Work Phone: Comment on above:GFR estimated reference range: According to KDOQI guidelines, <60 ml/min/1.73m2 is sufficient todiagnose a patient with chronic kidney disease.39\S\39NormalMP-[facility] DO Work Phone: [phone]\S\1.73above high threshold0.64-1.27MP-[facility] DO Work Phone: [phone]\S\73Ysnjoa29-119PP-Lknzi [facility] 250 DO Work Phone: Comment on above:Random Glucose Reference Range is dependent on time and content of last meal. Glucose of more than 200 mg/dL in a nonstressed, ambulatory subject supports the diagnosis of Diabetes Mellitus. ADA recommended reference rangeRadiologyon 73-84-8395SU Chest 2 ViewsNormalMP-[facility] DO Work Phone: Serum or plasma anion gap determinationOrdered By: Asya Mendoza on 23-84-9792Ibrvk gap [Moles/Vol]9.4 mmol/L6.0-15.0Doctors Hospitalerum or plasma aspartate aminotransferase measurement (enzymatic activity/volume)Ordered By: Asya Mendoza on 56-61-8936WIC [Catalytic activity/Vol]19 U/E24-23VplmjynmiDoctors Hospitalerum or plasma calcium measurement (mass/volume)Ordered By: Asya Mendoza on 88-65-4945Vmblzgz [Mass/Vol] 9.0 mg/dL8.2-10.2FProMedica Bay Park Hospitalerum or plasma chloride measurement (moles/volume)Ordered By: Asya Mendoza on 68-04-6173Donjsddw [Moles/Vol]104 mmol/I26-875FcgcqaulnDoctors Hospitalerum or plasma glucose measurement (mass/volume)Ordered By: Asya Mendoza on 63-68-0629Copushn [Mass/Vol]97 mg/pM12-942KndppdcxvMercy HealthComment on above:ADA recommended reference rangeRandom Glucose Reference Range is dependent on time and content of last meal. Glucose of more than 200 mg/dL in a nonstressed, ambulatory subject supports the diagnosisof Diabetes Mellitus.Serum or plasma potassium measurement (moles/volume)Ordered By: Asya Mendoza on 08-16-2022 Potassium [Moles/Vol]4.7 mmol/L3.5-5.1FProMedica Bay Park Hospitalerum or plasma sodium measurement (moles/volume)Ordered By: Asya Mendoza on 08-16-2022 Sodium [Moles/Vol]136 mmol/Z895-041GibpicotyDoctors Hospitalerum or plasma total carbon dioxide measurement (moles/volume)Ordered By: Asya Mendoza on 40-71-2806LW1 [Moles/Vol]27.3 mmol/L22.0-30.0[facility] Serum or plasma urea nitrogen measurement (mass/volume)Ordered By: Asya Mendoza on 67-37-5066Cfxe nitrogen [Mass/Vol]19 mg/dL9-23Mercy HealthTS DL <= 0.005 mIU/L QnOrdered By: Asya Mendoza on 64-26-7369PIS Qn4.90 m[IU]/L0.45-5.33Mercy HealthNO CARDIAC STRESS/REST INJECTIONon 91-94-9233MBP CARDIAC STRESS/REST INJECTIONMRN: [id number] Patient Name: AYAD DE LA ROSA STUDY: MYOCARDIAL PERFUSION STRESS TEST WITH LEXISCAN Performing facility: [facility], [address] [place] [address], [address], [place] [address] [facility] Provider: Asya Mendoza RN, ENGLISH COMPOSITION INSTRUCTOR PCP: Dr. Jasmyn Tyson Supervising provider: Viki Cooney MD, FACC INDICATION: Chest Pain; CAD; Non ischemic cardiomyopathy HISTORY: Gender: M; Age: 76 y/o ; Height: 0 cm; Weight: 87.4439436 kg. High Cholesterol; CAD; Arrhythmias; Chest Pain; SOB; Denies smoking. COMPARISON: Previous nuclear testing completed at [place]. ACCESSION NUMBER(S): [id number]; [id number]; [id number] ORDERING CLINICIAN: ASYA MENDOZA TECHNIQUE: ONE DAY protocol. Stress injection: Date:07-21-22, 34.6 mCi of Myoview IV 20 seconds after rapid injection of Lexiscan. Rest injection: Date: 07-21-22, 10.8 mCi of Myoview IV at rest. The patient had a rapid injection of 0.4 mg of Lexiscan IV over 10 seconds. Imaging was performed by gated tomographic technique. Reason for Lexiscan: uses walker/cane STRESS TEST DATA: Resting heart rate was 57 BPM. Resting blood pressure was 132/88 mmHg. Peak blood pressure was 108/62 mmHg. Peak heart rate was 68 BPM. TEST TERMINATED DUE TO: Protocol completed FINDINGS: STRESS TEST RESULTS: Resting electrocardiogram revealed sinus bradycardia with first-degree AV block. There were no significant ischemic ECG changes. Few PVCs with seen at throughout the test The patient did not have chest pains/symptoms during procedure. There was a normal recovery phase. IMAGING RESULTS: Image quality was good. Rest and stress tomographic images were reviewed and revealed normal perfusion without evidence of ischemia, myocardial infarction, or left ventricular dilatation with stress. Overall left ventricular systolic function appeared to be abnormal with mild global LV hypokinesis Ejection fraction was 47%. TID is 1.01 and is normal. There were no evidence of attenuation artifact. IMPRESSION: Normal Lexiscan Myoview cardiac perfusion stress test. No evidence of ischemia or myocardial infarction by perfusion imaging. Abnormal left ventricular systolic function, ejection fraction 47%. When compared to previous study. Previous study reported inferior HI which was not present during the study. Electronically signed by: Tran CRESPOLutheran Medical CenterNo Panel Informationon 98-41-3228EwnkdmMT-[facility] DO Work Phone: Office Visit (Cardiology)on 00-23-0939Svaytt-up visit Diagnoses/Problems Assessed Chest pain (786.50) (R07.9) Patient indicates discomfort across the anterior chest wall, details very difficult to ascertain. Mild CAD (414.00) (I25.10) December 2017 cardiac cath Mid LAD 30% Proximal circumflex 30% RCA nondominant Echo prior to cath LVEF 25% October 2020 perfusion study fixed inferior defect Non-ischemic cardiomyopathy (425.4) (I42.8) 2018 EF 25% February 2019 echo LVEF 45 to 50% October 2020 MPI LVEF 49% He has been maintained on Coreg and lisinopril since December 2017. Presents today off medication with addition of midodrine. I cannot elicit any type of orthopnea or PND, no dyspnea on exertion ambulating from exam room to front of office Persistent atrial fibrillation (427.31) (I48.19) EKG in office normal sinus rhythm on amiodarone 200 mg daily, QTC 450 November 2020 cardioversion Anticoagulated (V58.61) (Z79.01) CHADS VASc 3 full dose Eliquis age 76, weight 192 High risk medication use (V58.69) (Z79.899) Amiodarone start date March 2018 Surveillance testing November 2021 Mixed hyperlipidemia (272.2) (E78.2) Moderate intensity statin Sympathotonic orthostatic hypotension (458.0) (I95.1) Quiescent on midodrine Class 1 obesity with body mass index (BMI) of 30.0 to 30.9 in adult (278.00,V85.30) (E66.9,Z68.30) Reviewed the merits of healthy lifestyle choices on overall cardiovascular health. Orders Chest pain, Mild CAD, Non-ischemic cardiomyopathy NM Cardiac Stress/Rest Nuclear Med Order; Status:Active; Requested for:02Jun2022; Radiologist to Determine Optimal Study : Y What are the patient's signs and symptoms? : chest pain, shortness of breath Class 1 obesity with body mass index (BMI) of 30.0 to 30.9 in adult Healthy Weight Tips; Status:Complete; Done: 26Emq6889 Patient Instructions Please bring all medicines, vitamins, and herbal supplements with you when you come to the office. Prescriptions will not be filled unless you are compliant with your follow up appointments or have a follow up appointment scheduled as per instruction of your physician. Refills should be requested at the time of your visit. Patient provided Falls Prevention education sheet. PLAN: Through informed decision making process incorporating patients unique circumstances, the followingtreatment plan will be initiated: 1. Prescription drug management of cardiovascular medication for efficacy, adherence to treatment, side effect assessment and polypharmacy. Current treatment clinically warranted and to continue without modifications. 2. Lexiscan MPI (chest pain) no treadmill d/t ROOJ 3. Return for follow-up; in the interim, contact the office if new symptoms arise. Dr. Cooney 6 months Chief Complaint Routine f/u AYAD DE LA ROSA is being seen for a 6 month follow-up of atrial fibrillation, coronary artery disease, cardiomyopathy and dyslipidemia. Patient presents today ambulatory with steady gait, is accompanied by his . Last evaluated in clinic Dr. Lockhart October 2021. 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 Office visit was completed by way of written communication. The best I could ascertain, the patient has becoming more short of breath with walking and going upand down stairs. He indicates a discomfort across his anterior chest wall and sometimes dizziness after his medications. There were no obvious shortness of breath with ambulation from the exam room to the front office. Midodrine is a new concomitant medication compared to October 2021 medication list. Orthostatic vitalsigns negative in the office today. On record review he had moderate disease by 2018 cardiac cath, [facility] a [facility] (2018 cath RCA nondominant) Patient and are in agreement that stress testing would be beneficial and will proceed with Lexiscan perfusion study: He would not be able to hear instructions to complete treadmill. We will be able to evaluate EF off of GDMT. If testing is unremarkable, he will follow-up in 6 months otherwise,would return for earlier follow-up to discuss additional steps. History of Present Illness The patient states he has been generally stable since the last visit. Comorbid Illnesses: hyperlipidemia. Symptoms: worsened exertional chest pain, worsened dyspnea, worsened fatigue, worsened exercise intolerance, stable palpitations and stable dizziness. Disease Monitoring: Surgical History Problems History of Cardioversion History of Cataract surgery History of Colon surgery History of Complete colonoscopy 21Aug2015 History of Hemicolectomy Current Meds Medication NameInstruction Amiodarone HCl - 200 MG Oral TabletTAKE 1 TABLET BY MOUTH EVERY DAY Aspirin EC 81 MG Oral Tablet Delayed ReleaseTAKE 1 TABLET DAILY DIRECTED. Celecoxib 100 MG Oral CapsuleTAKE 1 CAPSULE BY MOUTH EVERY (more content not included)...NormalUH TouchworksTobacco Screening.on [id number] risk assessmentb) One or more falls in the last yearMP-[facility] [facility] Work Phone: Tobacco use status CPHSb) NoMP-[facility] [place] [facility] DO Work Phone: No Panel Informationon .0\S\9.0Normal 8.2-10.2MP-[facility] [facility] DO Work Phone: [phone]\S\25.8Ahkwrg82.0-30.0MP-[facility] DO Work Phone: [phone]\S\725Egmaff31-021TU-Qdumk [facility] 250 DO Work Phone: [phone]\S\4.6Eggorg2.5-5.1MP-[facility] [facility] DO Work Phone: [phone]\S\961Vqcxhh307-851HY-Svqjr [facility] 250 DO Work Phone: [phone]\S\51NormalMP-[facility] [facility] DO Work Phone: Comment on above:GFR estimated reference range: According to KDOQI guidelines, <60 ml/min/1.73m2 is sufficient todiagnose a patient with chronic kidney disease.42\S\42NormalMP-[facility] [facility] DO Work Phone: [phone]\S\1.61above high threshold0.64-1.27MP-[facility] DO Work Phone: [phone]\S\02Lemyrw2-67HN-Lhtpf [facility] 250 DO Work Phone: [phone]\S\495Gypbvd30-046XQ-Nyttm [facility] DO Work Phone: Comment on above:Random Glucose Reference Range is dependent on time and content of last meal. Glucose of more than 200 mg/dL in a nonstressed, ambulatory subject supports the diagnosis of Diabetes Mellitus. ADA recommended reference range19\S\04Adqene35-12LE-Pjdfo [facility] 250 DO Work Phone: [phone]\S\3.30Eysqgz7.45-5.33[facility] 250 DO Work Phone: Comment on above:PERFORMED BY:[facility] [place], [place] [id number] MEDICAL DIRECTORASHLEY BECERRA M.D.Radiologyon [id number] Chest 2 ViewsNormRobert Ville [address] DO Work Phone: Tobacco Screening.on 19-78-6992Busvj depression screening assessmentNoGloria Ville [address] DO Work Phone: Fall risk assessmentb) One or more falls in the last yearGloria Ville [address] DO Work Phone: Tobacco use status CPHSb) [facility] 250 DO Work Phone: INSULINon 51-91-3678Bpnvqla25.2 uIU/mLNormal2.6-24.9 The [facility] CenterComment on above:Performed By: #### CMP, BNP, HSTROPN #### [facility] [address] [address] [place] KarenCBC AUTO DIFFon [id number] #0.0 103/ulNormal0.0-0.1The [facility] CenterComment on above:Performed By: #### CMP, BNP, HSTROPN #### [facility] [address] [address] [place] KarenBasophils/100 WBC (Bld)0.4 %Normal0.2-2.0The [facility] Comment on above:Performed By: #### CMP, BNP, HSTROPN #### [facility] [address] [place] [address] [place] KarenEO #0.3 103/ulNormal0.0-0.7The [facility] CenterComment on above: Performed By: #### CMP, BNP, HSTROPN #### [facility] [address] [place] [address] [place] KarenEosinophils/100 WBC (Bld)4.8 %Normal0.9-7.0The [facility] Comment on above:Performed By: #### CMP, BNP, HSTROPN #### [facility] [address] [place] [address] [place] KarenErythrocyte distribution width (RBC) [Ratio]20.2 %Critically high 11.0-15.0The [facility] CenterComment on above:Performed By: #### CMP, BNP, HSTROPN #### [facility] [address] [place] [address] [place] KarenHematocrit (Bld) [Volume fraction]47.2 %Ctrjtd14.0-54.0The [facility] CenterComment on above:Performed By: #### CMP, BNP, HSTROPN #### [facility] [address] [place] [address] [place] KarenHemoglobin (Bld) [Mass/Vol]15.3 g/lMHrcgns20.0-18.0The [facility] CenterComment on above:Performed By: #### CMP, BNP, HSTROPN #### [facility] [address] [place] [address] [place] KarenIG #0.02 10e3/ulNormal0.00-0.03The [facility] CenterComment on above:Performed By: #### CMP, BNP, HSTROPN #### [facility] [address] [place] [address] [place] KarenIG %0.3 %Normal0.0-0.5The [facility] CenterComment on above: Performed By: #### CMP, BNP, HSTROPN #### [facility] [address] [place] [address] [facility]Thom[facility] #1.8 103/ulNormal1.2-3.8The [facility] CenterComment on above: Performed By: #### CMP, BNP, HSTROPN #### [facility] [address] [place] [address] SiddharthaenLymphocytes/100 WBC (Bld)26.7 %Jniedn28.5-60.0[facility] Comment on above:Performed By: #### CMP, BNP, HSTROPN #### [facility] [address] [place] [address] KarenMANVETERANS HEALTH ADMINISTRATION DIFF REQNONormalThe [facility] CenterComment on above: Performed By: #### CMP, BNP, HSTROPN #### [facility] [address] [place] [address] (RBC) [Entitic mass]27.4 jsKucwyp44.9-34.0[facility] Comment on above:Performed By: #### CMP, BNP, HSTROPN #### [facility] [address] [place] [address] (RBC) [Mass/Vol]32.4 g/aAChhcmw74.9-35.2[facility] Comment on above:Performed By: #### CMP, BNP, HSTROPN #### [facility] [address] [place] [address] (RBC) [Entitic vol]84.4 pSJpayal54.0-94.0[facility] Comment on above:Performed By: #### CMP, BNP, HSTROPN #### [facility] [address] [place] [address] SiddharthaEncompass Health Rehabilitation [facility] #0.7 103/ulNormal0.3-0.8The [facility] CenterComment on above: Performed By: #### CMP, BNP, HSTROPN #### [facility] [address] [place] [address] [place] KarenMonocytes/100 WBC (Bld)9.8 %Normal1.7-12.0[facility] Comment on above:Performed By: #### CMP, BNP, HSTROPN #### [facility] [address] [place] [address] [place] CarlenNEUT #3.9 103/ulNormal1.4-6.5The [facility] HospitalComment on above: Performed By: #### CMP, BNP, HSTROPN #### [facility] [address] [place] [address] [place] KarenNeutrophils/100 WBC (Bld)58.0 %Sklkut25.0-75.0The [facility] Comment on above:Performed By: #### CMP, BNP, HSTROPN #### [facility] [address] [place] [address] [place] KarenPlatelet mean volume (Bld) [Entitic vol]9.9 fLNormal9.5-13.5The [facility] CenterComment on above:Performed By: #### CMP, BNP, HSTROPN #### [facility] [address] [place] [address] [place] DmvscJMY241 103/dzTvzsic699-599Kfn [facility] CenterComment on above: Performed By: #### CMP, BNP, HSTROPN #### [facility] [address] [place] [address] [place] KarenRBC5.59 106/ulNormal4.70-6.10The [facility] CenterComment on above: Performed By: #### CMP, BNP, HSTROPN #### [facility] [address] [place] [address] [place] KarenWBC6.7 103/ulNormal4.0-11.0The [facility] CenterComment on above: Performed By: #### CMP, BNP, HSTROPN #### [facility] [address] [place] [address] [place] KarenFREE THYROXINE INDEX T7on 62-38-3610GHV7.85NoAdams County HospitalComment on above:Performed By: #### CMP, LIPID, TSH, T7, URIC #### [facility] [address] [address] [place] VzacgD8W93.0 %Tcxsbk57.5-40.5The [facility] CenterComment on above: Performed By: #### CMP, LIPID, TSH, T7, URIC #### [facility] [address] [place] [address] [place] KarenT4 [Mass/Vol]10.70 ug/dLNormal5.53-11.00The [facility] CenterComment on above:Performed By: #### CMP, LIPID, TSH, T7, URIC #### [facility] [address] [place] [address] [place] KarenGLYCOHEMOGLOBIN A1Con [id number] RECOMMENDATIONADA THERAPEUTIC TARGET 6.0 - 7.0 ACTION SUGGESTED > 7.0NoAdams County HospitalComaspirus ontonagon hospital on above:Performed By: #### CMP, BNP, HSTROPN #### [facility] [address] [place] [address] [place] KarenGlucose [Mass/Vol]120 mg/dLNoAdams County HospitalComment on above:Performed By: #### CMP, BNP, HSTROPN #### [facility] [address] [place] [address] [place] BjmdaMrK0v (Bld) [Mass fraction]5.8 %Normal<=6.0The [facility] Comment on above:Performed By: #### CMP, BNP, HSTROPN #### [facility] [address] [place] [address] [place] KarenLIPID PROFILEon [id number]-HDL RATIO NORMSEE BELOWHolzer HospitalComment on above:Result Comment: 3.3 - 4.4 LOW RISK 4.4 - 7.1 AVERAGE RISK 7.1 - 11.0 MODERATE RISK >11.0 HIGH RISKPerformed By: #### CMP, LIPID, TSH, T7, URIC #### [facility] [address] [address] [place] KarenCholesterol [Mass/Vol]192 mg/dLNormal<=200[facility] Comment on above:Performed By: #### CMP, LIPID, TSH, T7, URIC #### [facility] [address] [address] [place] KarenCholesterol in HDL [Mass/Vol]46 mg/dLHolzer Hospital Comment on above:Performed By: #### CMP, LIPID, TSH, T7, URIC #### [facility] [address] [address] [place] KarenCholesterol in LDL [Mass/Vol]119.8 mg/dLHolzer Hospital Comment on above:Performed By: #### CMP, LIPID, TSH, T7, URIC #### [facility] [address] [place] [address] [place] KarenCholesterol.total/Cholesterol in HDL [Mass ratio]4.2 {ratio}Normal The [facility] CenterComment on above:Performed By: #### CMP, LIPID, TSH, T7, URIC #### [facility] [address] [address] [place] KarenHDL NORMAL> or = 60 mg/dl - LOW CARDIOVASCULAR RISK <40 mg/dl - HIGH CARDIOVASCULAR RISKHolzer HospitalComment on above:Performed By: #### CMP, LIPID, TSH, T7, URIC #### [facility] [address] [place] [address] [place] KarenLDL CALC NORMALSEE BELOWNoAdams County HospitalComment on above: Result Comment: <100 mg/dl OPTIMAL 100 - 129 mg/dl NEAR OR ABOVE OPTIMAL 130 - 159 mg/dl BORDERLINE HIGH 160 - 189 mg/dl HIGH >190 mg/dl VERY HIGHPerformed By: #### CMP, LIPID, TSH, T7, URIC #### [facility] [address] [address] [place] KarenTriglyceride [Mass/Vol]131 mg/dLNormal<=150[facility] Comment on above:Performed By: #### CMP, LIPID, TSH, T7, URIC #### [facility] [address] [address] [place] KarenVLDL CALC26.2 mg/dLNormalThe [facility] CenterComment on above: Performed By: #### CMP, LIPID, TSH, T7, URIC #### [facility] [address] [address] [place] KarenPROF 14(COMP METB)on 71-42-2506Lvazthp [Mass/Vol]3.6 g/dLNormal 3.5-5.0The [facility] CenterComment on above:Performed By: #### CMP, LIPID, TSH, T7, URIC #### [facility] [address] [address] [place] KarenAlbumin/Globulin [Mass ratio]1.1 {ratio}NormalMount St. [facility] Comment on above:Performed By: #### CMP, LIPID, TSH, T7, URIC #### [facility] [address] [address] [place] KarenALP [Catalytic activity/Vol]73 U/SMljaqw94-939LyhMount St. [facility] Hospital Comment on above:Performed By: #### CMP, LIPID, TSH, T7, URIC #### [facility] [address] [address] [place] KarenALT [Catalytic activity/Vol]26 U/FBkbdze69-97Igj [facility] Comment on above:Performed By: #### CMP, LIPID, TSH, T7, URIC #### [facility] [address] [address] [place] KarenAnion gap [Moles/Vol]14.9 mmol/LNormalThe [facility] CenterComment on above:Performed By: #### CMP, LIPID, TSH, T7, URIC #### [facility] [address] [place] [address] [place] KarenAST [Catalytic activity/Vol]27 U/HScmmyy36-19Vfq [facility] Comment on above:Performed By: #### CMP, LIPID, TSH, T7, URIC #### [facility] [address] [place] [address] [place] KarenBilirubin [Mass/Vol]0.7 mg/dLNoal0.2-1.3TMercy Health [facility] Comment on above:Performed By: #### CMP, LIPID, TSH, T7, URIC #### [facility] [address] [place] [address] [place] KarenCalcium [Mass/Vol]8.9 mg/dLNormal8.4-10.2[facility] Comment on above:Performed By: #### CMP, LIPID, TSH, T7, URIC #### [facility] [address] [place] [address] [place] KarenChloride [Moles/Vol]105 mmol/QXmlegp52-815Ioc [facility] Comment on above:Performed By: #### CMP, LIPID, TSH, T7, URIC #### [facility] [address] [place] [address] [place] KarenCO2 [Moles/Vol]26.3 mmol/QOyfypn72.0-30.0The [facility] Comment on above:Performed By: #### CMP, LIPID, TSH, T7, URIC #### [facility] [address] [place] [address] [place] KarenCreatinine [Mass/Vol]1.72 mg/dLCritically high0.66-1.25The [facility] CenterComment on above:Performed By: #### CMP, LIPID, TSH, T7, URIC #### [facility] [address] [place] [address] [place] KarenEGFR-AF KROQLADH91 mL/min/1.87b4Mheiwhlfpu low>=60The [facility] CenterComment on above:Performed By: #### CMP, LIPID, TSH, T7, URIC #### [facility] [address] [place] [address] [place] KarenEGFR-NON AF KCJRFQCO15 mL/min/1.43n6Lxfapcqghh low>=60The [facility] CenterComment on above:Performed By: #### CMP, LIPID, TSH, T7, URIC #### [facility] [address] [place] [address] [place] KarenGlobulin (S) [Mass/Vol]3.4 g/dLNormalThe [facility]ucho HospitalComment on above:Performed By: #### CMP, LIPID, TSH, T7, URIC #### [facility] [address] [place] [address] [place] KarenGlucose [Mass/Vol]100 mg/vNBybswz12-005Bhy [facility] CenterComment on above:Performed By: #### CMP, LIPID, TSH, T7, URIC #### [facility] [address] [place] [address] [place] KarenPotassium [Moles/Vol]4.2 mmol/LNormal3.4-5.0The [facility] Comment on above:Performed By: #### CMP, LIPID, TSH, T7, URIC #### [facility] [address] [place] [address] [place] KarenProtein [Mass/Vol]7.0 g/dLNormal6.1-8.2The [facility] CenterComment on above:Performed By: #### CMP, LIPID, TSH, T7, URIC #### [facility] [address] [place] [address] [place] KarenSodium [Moles/Vol]142 mmol/PDbsxdz764-499Gtv [facility] Comment on above:Performed By: #### CMP, LIPID, TSH, T7, URIC #### [facility] [address] [place] [address] [place] KarenUrea nitrogen [Mass/Vol]17.0 mg/dLNormal9.0-20.0The [facility] CenterComment on above:Performed By: #### CMP, LIPID, TSH, T7, URIC #### [facility] [address] [place] [address] [place] KarenUrea nitrogen/Creatinine [Mass ratio]9.9 mg/mgNoAdams County HospitalComaspirus ontonagon hospital on above:Performed By: #### CMP, LIPID, TSH, T7, URIC #### [facility] [address] [place] [address] [place] KarenTSHon 01-41-3416DOM9.268 uIU/mLNormal0.470-4.680The [facility] CenterComment on above:Performed By: #### CMP, LIPID, TSH, T7, URIC #### [facility] [address] [place] [address] [place] CarlenTSH RANGESEE BELOWNormalThe [facility] CenterComment on above:Result Comment: <0.34 UIU/ml HYPERTHYROID 0.34-5.60 UIU/ml EUTHYROID >5.60 UIU/ml HYPOTHYROIDPerformed By: #### CMP, LIPID, TSH, T7, URIC #### [facility] [address] [place] [address] [place] CarlenURIC ACID SERUMon [id number] [Mass/Vol]5.5 mg/dLNormal3.5-8.5 The [facility] CenterComment on above:Performed By: #### CMP, LIPID, TSH, T7, URIC #### [facility] [address] [place] [address] [place] KarenASYMPTOMATIC COVID-19 ANTIGENon [id number] StatementSEE BELOW NormalThe [facility] CenterComaspirus ontonagon hospital on above:Result Comment: This test has not been FDA cleared or approved, but has been authorized by the FDA under an Emergency Use Authorization (EUA) for use by authorized laboratories certified under CLIA that meet the requirements to perform moderate or high complexity testing. This test has been authorized only for the detection of proteins from SARS-CoV-2, not for any other viruses or pathogens. The emergency use of this test is authorized for the duration of the declaration that circumstances exist justifying the authorization of emergency use of in vitro diagnostic tests for detection and/or diagnosis of Covid-19 under section 564(b)(1) of the Act, 21 U.S.C. 360bbb-3(b)(1), unless the declaration is terminated or authorization is revoked sooner.Performed By: #### CMP, BNP, HSTROPN #### [facility] [address] [place] [address] [place] AnguianoWgbvyNIRM-XiZ-8 (COVID-19) RNA OBINNA+probe Ql (Unsp spec)NegativeNormal NEGATIVEThe [facility] CenterComaspirus ontonagon hospital on above:Result Comment: Negative results are presumptive. They do not preclude infection and should not be used as the sole basis for treatment decisions. Additional confirmatory testing by a molecular method should be considered.Performed By: #### CMP, BNP, HSTROPN #### [facility] [address] [place], [place] [id number] [place] KarenCBC AUTO DIFFon [id number] #0.0 103/ulNormal0.0-0.1The [facility] CenterComment on above:Performed By: #### CMP, BNP, HSTROPN #### [facility] [address] [place] [address] [place] KarenBasophils/100 WBC (Bld)0.3 %Normal0.2-2.0The [facility] Comment on above:Performed By: #### CMP, BNP, HSTROPN #### [facility] [address] [place] [address] [place] KarenEO #0.1 103/ulNormal0.0-0.7The [facility] CenterComment on above: Performed By: #### CMP, BNP, HSTROPN #### [facility] [address] [place] [address] [place] KarenEosinophils/100 WBC (Bld)1.1 %Normal0.9-7.0The [facility] Comment on above:Performed By: #### CMP, BNP, HSTROPN #### [facility] [address] [place], [place] [id number] [place] KarenErythrocyte distribution width (RBC) [Ratio]21.9 %Critically high 11.0-15.0The [facility] CenterComment on above:Performed By: #### CMP, BNP, HSTROPN #### [facility] [address] [place] [address] [place] KarenHematocrit (Bld) [Volume fraction]44.1 %Acqbjl98.0-54.0The [facility] CenterComment on above:Performed By: #### CMP, BNP, HSTROPN #### [facility] [address] [place] [address] [place] KarenHemoglobin (Bld) [Mass/Vol]13.5 g/dLCritically low14.0-18.0The [facility] CenterComment on above:Performed By: #### CMP, BNP, HSTROPN #### [facility] [address] [place] [address] [place] KarenIG #0.04 10e3/ulCritically high0.00-0.03The [facility] CenterComment on above:Performed By: #### CMP, BNP, HSTROPN #### [facility] [address] [place] [address] [place] KarenIG %0.4 %Normal0.0-0.5The [facility] CenterComment on above: Performed By: #### CMP, BNP, HSTROPN #### [facility] [address] [place] [address] [place] KarenLYMPH #1.2 103/ulNormal1.2-3.8The [facility] CenterComment on above: Performed By: #### CMP, BNP, HSTROPN #### [facility] [address] [place] [address] [place] KarenLymphocytes/100 WBC (Bld)12.2 %Critically low20.5-60.0The [facility] CenterComment on above:Performed By: #### CMP, BNP, HSTROPN #### [facility] [address] [place] [address] [place] KarenMANUAL DIFF REQNONormalThe [facility] CenterComment on above: Performed By: #### CMP, BNP, HSTROPN #### [facility] [address] [place] [address] [place] KarenMCH (RBC) [Entitic mass]24.4 pgCritically low25.9-34.0The [facility] CenterComment on above:Performed By: #### CMP, BNP, HSTROPN #### [facility] [address] [place] [address] [place] KarenMCHC (RBC) [Mass/Vol]30.6 g/xBFllore52.9-35.2The [facility] Comment on above:Performed By: #### CMP, BNP, HSTROPN #### [facility] [address] [place] [address] [place] KarenMCV (RBC) [Entitic vol]79.6 fLCritically low80.0-94.0The [facility] CenterComment on above:Performed By: #### CMP, BNP, HSTROPN #### [facility] [address] [place] [address] [place] KarenMONO #0.9 103/ulCritically high0.3-0.8The [facility] CenterComment on above:Performed By: #### CMP, BNP, HSTROPN #### [facility] [address] [place] [address] [place] KarenMonocytes/100 WBC (Bld)9.9 %Normal1.7-12.0The [facility] Comment on above:Performed By: #### CMP, BNP, HSTROPN #### [facility] [address] [place] [address] [place] KarenNEUT #7.2 103/ulCritically high1.4-6.5The [facility] CenterComment on above:Performed By: #### CMP, BNP, HSTROPN #### [facility] [address] [place] [address] [place] KarenNeutrophils/100 WBC (Bld)76.1 %Critically high43.0-75.0The [facility] CenterComment on above:Performed By: #### CMP, BNP, HSTROPN #### [facility] [address] [place] [address] [place] KarenPlatelet mean volume (Bld) [Entitic vol]9.7 fLNormal9.5-13.5The [facility] CenterComment on above:Performed By: #### CMP, BNP, HSTROPN #### [facility] [address] [place] [address] [place] GtjihWVN144 103/qtLuklqo547-323Ran [facility] CenterComment on above: Performed By: #### CMP, BNP, HSTROPN #### [facility] [address], [place] [address] Lucero CarlenRBC5.54 106/ulNormal4.70-6.10The [facility] Medical CenterComment on above: Performed By: #### CMP, BNP, HSTROPN #### [facility] [address], [place] [address] Lucero CarlenWBC9.4 103/ulNormal4.0-11.0The [facility] Medical CenterComment on above: Performed By: #### CMP, BNP, HSTROPN #### [facility] [address], [place] [address] Lucero KarenCT ABD/PELVIS WO CONon [id number] ABD/PELVIS WO CONEXAMINATION: CT ABD/PELVIS WO CON HISTORY: Pain left lower abdominal pain. Nausea, headache, dizziness. COMPARISON: CT 12/16/2020. TECHNIQUE: CT examination of the abdomen and pelvis without IV contrast. Coronal and sagittal reformations were performed. Dose reduction techniques were achieved by using automated exposure control and/or adjustment of mA and/or kV according to patient size and/or use of iterative reconstruction technique. FINDINGS: LUNG BASES: Mild bibasilar atelectasis. No pleural effusion. Calcified subcarinal lymph nodes related prior granulomatous disease. Moderate size hiatal hernia. LYMPH NODES: No retroperitoneal, mesenteric or pelvic lymphadenopathy. ABDOMINAL AORTA: No aortic aneurysm identified. Mild calcific plaque. LIVER: Liver contour appears smooth. No focal liver parenchymal mass identified. BILIARY TREE AND GALLBLADDER: No intrahepatic or extrahepatic bile duct dilatation. Gallbladder is fluid distended without calcified gallstones. PANCREAS: Normal in size without masses or ductal dilatation. No peripancreatic inflammatory changes. SPLEEN: Scattered calcifications throughout the spleen. ADRENAL GLANDS: Normal bilaterally, without nodules. KIDNEYS/URINARY BLADDER: The kidneys appear symmetric in size. Low-density cyst at the lateral midpole cortex of the right kidney measures 0.9 cm. Low-density cyst at the upper pole cortex of the left kidney measures 2.1 cm. Bilateral parapelvic cysts. No KUB stones or hydronephrosis identified. The urinary bladder appears unremarkable. GASTROINTESTINAL TRACT: Sigmoid diverticulosis is seen with mild adjacent inflammation compatible with diverticulitis. No abscess identified. Prior appendectomy. No bowel obstruction. Moderate size hiatal hernia. 1.5 cm duodenal diverticulum. PERITONEAL CAVITY AND SURFACES: No free fluid. No free intraperitoneal air. REPRODUCTIVE ORGANS: Prostate gland measures 6.8 cm. ABDOMINAL WALL: Bilateral noninflamed fat-containing umbilical and bilateral inguinal hernias. OSSEOUS STRUCTURES: No aggressive appearing osseous lesions. No compression fracture is identified. Intraosseous hemangioma at L1. Convex right curvature of the lumbar spine with moderate degenerative disc disease. Moderate bilateral hip joint osteoarthritis. IMPRESSION: 1. Mild acute sigmoid diverticulitis. No abscess or free air. 2. Prostatomegaly. Recommend correlation with PSA. 3. Moderate size hiatal hernia. 4. Other chronic and incidental findings, as above. 2 Electronically authenticated by: LUIS CHRISTIAN Date: 2021-02-17 20:27Hol[facility] HospitalCULTURE BLOODon [id number] examination of blood, cultureCulture Observations: NO GROWTH AT 5 DAYS.NormalThe [facility] Medical CenterComment on above:Performed By: #### CMP, BNP #### [facility] [address] [place] [address] Lucero KarenMicroscopic examination of blood, cultureCulture Observations: NO GROWTH AT 5 DAYS.NormalThe [facility] Medical CenterComment on above:Performed By: #### CMP, BNP #### [facility] [address] [place] [address] Lucero KarenLACTATE/LACTIC ACIDon [id number] [Moles/Vol]1.9 mmol/LNormal 0.7-2.0The [facility] CenterComment on above:Performed By: #### CMP, BNP #### [facility] [address] [place] [address] Lucero KarenPROF 14(COMP METB)on [id number] [Mass/Vol]3.6 g/dLNormal 3.5-5.0The [facility] Hospitalment on above:Performed By: #### CMP, BNP, HSTROPN #### [facility] [address] [place] [address] Lucero KarenAlbumin/Globulin [Mass ratio]1.0 {ratio}NormalThe [facility] Comment on above:Performed By: #### CMP, BNP, HSTROPN #### [facility] [address] [address] Lucero KarenALP [Catalytic activity/Vol]75 U/VLdujal99-710Gbi [facility] Comment on above:Performed By: #### CMP, BNP, HSTROPN #### [facility] [address] [place] [address] Lucero KarenALT [Catalytic activity/Vol]16 U/LCritically sez12-68Yye [facility] CenterComment on above:Performed By: #### CMP, BNP, HSTROPN #### [facility] [address] [place] [address] Lucero KarenAnion gap [Moles/Vol]14.2 mmol/LNormalThe [facility] CenterComment on above:Performed By: #### CMP, BNP, HSTROPN #### [facility] [address] [place] [address] Lucero KarenAST [Catalytic activity/Vol]15 U/LCritically upe41-72Kld [facility] CenterComment on above:Performed By: #### CMP, BNP, HSTROPN #### [facility] [address] [place] [address] Lucero KarenBilirubin [Mass/Vol]0.6 mg/dLNormal0.2-1.3TMercy Health [facility] Comment on above:Performed By: #### CMP, BNP, HSTROPN #### [facility] [address] [place] [address] Lucero KarenCalcium [Mass/Vol]8.9 mg/dLNormal8.4-10.2[facility] Comment on above:Performed By: #### CMP, BNP, HSTROPN #### [facility] [address] [place] [address] Lucero KarenChloride [Moles/Vol]105 mmol/PBfhlmi37-586LflMount St. Mary Hospital Comment on above:Performed By: #### CMP, BNP, HSTROPN #### [facility] [address] [place] [address] Lucero KarenCO2 [Moles/Vol]26.8 mmol/VGueixz19.0-30.0The [facility] Comment on above:Performed By: #### CMP, BNP, HSTROPN #### [facility] [address] [place] [address] Lucero KarenCreatinine [Mass/Vol]1.82 mg/dLCritically high0.66-1.25The [facility] CenterComment on above:Performed By: #### CMP, BNP, HSTROPN #### [facility] [address] [place] [address] Lucero KarenEGFR-AF IIYUBZNK80 mL/min/1.67f0Euhywomezo low>=60The [facility] Medical CenterComment on above:Performed By: #### CMP, BNP, HSTROPN #### [facility] [address] [place] [address] Lucero KarenEGFR-NON AF DCJXOEDF84 mL/min/1.26v3Cicqssaoep low>=60The [facility] CenterComment on above:Performed By: #### CMP, BNP, HSTROPN #### [facility] [address] [place] [address] Lucero KarenGlobulin (S) [Mass/Vol]3.5 g/dLNormalThe [facility] Medical CenterComment on above:Performed By: #### CMP, BNP, HSTROPN #### [facility] [address] [place] [address] Lucero KarenGlucose [Mass/Vol]156 mg/dLCritically ipuc69-216Uti [facility] CenterComment on above:Performed By: #### CMP, BNP, HSTROPN #### [facility] [address] [place] [address] Lucero KarenPotassium [Moles/Vol]4.0 mmol/LNormal3.4-5.0The [facility] Comment on above:Performed By: #### CMP, BNP, HSTROPN #### [facility] [address] [place] [address] Lucero KarenProtein [Mass/Vol]7.1 g/dLNormal6.1-8.2The [facility] CenterComment on above:Performed By: #### CMP, BNP, HSTROPN #### [facility] [address] [place] [address] Lucero KarenSodium [Moles/Vol]142 mmol/MBcmwcj616-812Liq [facility] Comment on above:Performed By: #### CMP, BNP, HSTROPN #### [facility] [address] [place] [address] Lucero KarenUrea nitrogen [Mass/Vol]17.0 mg/dLNormal9.0-20.0The [facility] CenterComment on above:Performed By: #### CMP, BNP, HSTROPN #### [facility] [address] [place] [address] Lucero KarenUrea nitrogen/Creatinine [Mass ratio]9.3 mg/mgNormalThe [facility] CenterComment on above:Performed By: #### CMP, BNP, HSTROPN #### [facility] [address] [place] [address] Lucero KarenTYPE AND SCREENon [id number] AND SCREENNegativeNormFostoria City HospitalComment on above:Performed By: #### CMP, BNP, HSTROPN #### [facility] [address] [place] [address] Lucero KarenCBC AUTO DIFFon [id number] #0.1 103/ulNormal0.0-0.1The [facility] CenterComment on above:Performed By: #### CMP, BNP, HSTROPN #### [facility] [address] [place] [address] Lucero KarenBasophils/100 WBC (Bld)0.7 %Normal0.2-2.0The [facility] Comment on above:Performed By: #### CMP, BNP, HSTROPN #### [facility] [address] [place] [address] Lucero KarenEO #0.4 103/ulNormal0.0-0.7The [facility] Medical CenterComment on above: Performed By: #### CMP, BNP, HSTROPN #### [facility] [address] [place] [address] Lucero KarenEosinophils/100 WBC (Bld)5.7 %Normal0.9-7.0The [facility] Comment on above:Performed By: #### CMP, BNP, HSTROPN #### [facility] [address] [place] [address] Lucero KarenErythrocyte distribution width (RBC) [Ratio]24.5 %Critically high 11.0-15.0The [facility] Medical CenterComment on above:Performed By: #### CMP, BNP, HSTROPN #### [facility] [address] [place] [address] Lucero KarenHematocrit (Bld) [Volume fraction]34.6 %Critically low42.0-54.0The [facility] Hospitalment on above:Performed By: #### CMP, BNP, HSTROPN #### [facility] [address] [place] [address] Lucero KarenHemoglobin (Bld) [Mass/Vol]10.0 g/dLCritically low14.0-18.0The [facility] Hospitalment on above:Performed By: #### CMP, BNP, HSTROPN #### [facility] [address] [place] [address] Lucero KarenIG #0.02 10e3/ulNormal0.00-0.03The [facility] Hospitalment on above:Performed By: #### CMP, BNP, HSTROPN #### [facility] [address] [place] [address] Lucero KarenIG %0.3 %Normal0.0-0.5The [facility] Hospitalment on above: Performed By: #### CMP, BNP, HSTROPN #### [facility] [address] [place] [address] Lucero KarenLYMPH #1.6 103/ulNormal1.2-3.8The [facility] HospitalComment on above: Performed By: #### CMP, BNP, HSTROPN #### [facility] [address] [place] [address] Lucero KarenLymphocytes/100 WBC (Bld)22.9 %Jcrobl70.5-60.0The [facility] Comment on above:Performed By: #### CMP, BNP, HSTROPN #### [facility] [address] [place] [address] Lucero KarenMANUAL DIFF REQNONormalThe [facility] CenterComment on above: Performed By: #### CMP, BNP, HSTROPN #### [facility] [address] [place] [address] [facility] (RBC) [Entitic mass]21.1 pgCritically low25.9-34.0The [facility] CenterComment on above:Performed By: #### CMP, BNP, HSTROPN #### [facility] [address] [place] [address] Lucero KarBig[facility] (RBC) [Mass/Vol]28.9 g/dLCritically low29.9-35.2The [facility] CenterComment on above:Performed By: #### CMP, BNP, HSTROPN #### [facility] [address] [place] [address] Lucero KarenV (RBC) [Entitic vol]73.0 fLCritically low80.0-94.0The [facility] CenterComment on above:Performed By: #### CMP, BNP, HSTROPN #### [facility] [address] [place] [address] Lucero KarenMONO #0.6 103/ulNormal0.3-0.8The [facility] CenterComment on above: Performed By: #### CMP, BNP, HSTROPN #### [facility] [address] [place] [address] Lucero KarenMonocytes/100 WBC (Bld)8.5 %Normal1.7-12.0The [facility] Comment on above:Performed By: #### CMP, BNP, HSTROPN #### [facility] [address] [place] [address] Lucero CarlenNEUT #4.3 103/ulNormal1.4-6.5The [facility] CenterComment on above: Performed By: #### CMP, BNP, HSTROPN #### [facility] [address] [place] [address] Lucero CarlenNeutrophils/100 WBC (Bld)61.9 %Jyfhfj45.0-75.0The [facility] Comment on above:Performed By: #### CMP, BNP, HSTROPN #### [facility] [address] [place] [address] Lucero KarenPlatelet mean volume (Bld) [Entitic vol]9.4 fLCritically low9.5-13.5 The [facility] Medical CenterComment on above:Performed By: #### CMP, BNP, HSTROPN #### [facility] [address] [place] [address] Lucero FgjrsQMV155 103/mgJgzieu214-885Maq [facility] CenterComment on above: Performed By: #### CMP, BNP, HSTROPN #### [facility] [address] [place] [address] Lucero KarenRBC4.74 106/ulNormal4.70-6.10The [facility] CenterComment on above: Performed By: #### CMP, BNP, HSTROPN #### [facility] [address] [place] [address] Lucero KarenWBC6.9 103/ulNormal4.0-11.0The [facility] CenterComment on above: Performed By: #### CMP, BNP, HSTROPN #### [facility] [address] [place] [address] Lucero KarenCT ABD/PELV W CONon [id number] ABD/PELV W CONEXAMINATION: CT ABD/PELV W CON HISTORY: Contusion of flank COMPARISON: Renal ultrasound of 05/19/2020. TECHNIQUE: Multiple axial images of the abdomen and pelvis were obtained following the administration of 100 mL of Omnipaque 300 IV contrast material. Coronal and sagittal reformatted sequences are submitted for review. Dose reduction techniques were achieved by using automated exposure control and/or adjustment of mA and/or kV according to patient size and/or use of iterative reconstruction technique. FINDINGS: Tiny right pleural effusion is seen. Mild posterior dependent bibasilar atelectasis is seen. Moderate size hiatal hernia is seen. Moderate cardiomegaly is seen. The liver, gallbladder, spleen, and adrenal glands appear unremarkable. A 12 mm low-density is seen about the anterior pancreatic neck, best seen on image 34 of axial series 3, and image 35 of coronal series 5, suggestive of pancreatic cystic structure. A pancreatic MRI with and without contrast is suggested for better evaluation. Low density seen about the kidneys bilaterally, suggestive of bilateral renal cortical and parapelvic cysts/cystic structures. Bilateral kidneys demonstrate normal contrast enhancement. There is no evidence for hydronephrosis bilaterally. The prostate gland measures approximately 4.7 cm and 6.6 cm in AP and transverse diameter, respectively, and contains coarse calcifications. Irregular appearance of the posterior urinary bladder base is seen, which may be related to mass effect from the adjacent enlarged prostate gland. However, intrinsic urinary bladder disease cannot be excluded. Clinical correlation is recommended. Additionally, mild wall thickening of the urinary bladder is seen. The intra-abdominal stomach and the duodenum appear unremarkable. Nonobstructive bowel pattern is seen. The appendix is not visualized. Post surgical changes with surgical sutures are seen about the right colon. No significant bowel wall thickening is seen. Scattered sigmoid diverticula are seen without significant associated inflammatory changes. Mild aortic and iliac arterial catheter consolidation is seen without aneurysmal dilatation. No significant free fluid or abnormal fluid collection is seen in the abdomen and pelvis. Partially visualized fat-containing small, moderate-sized left inguinal hernias are seen. The abdominal wall is not completely included on this examination. The visualized subcutaneous tissues of the abdominal wall do not demonstrate obvious abnormal fluid collection. Subcutaneous fat stranding is seen in the visualized left lower anterolateral abdominal wall,, suggestive of local inflammatory/ecchymotic changes. Questionable minimal asymmetric prominent appearance of the left iliacus/iliopsoas muscle is seen. Minimal intramuscular hematoma within the left iliacus/iliopsoas muscle cannot be entirely excluded on this examination. Clinical correlation and continued follow-up with possible follow-up imaging is recommended. Mild multilevel degenerative changes of the visualized thoracolumbar spine is seen. Mild degenerative changes of bilateral hip joints is seen with mild bilateral acetabular subchondral sclerotic changes. IMPRESSION: Subcutaneous fat stranding is seen in the visualized left lower anterolateral abdominal wall,, suggestive of local inflammatory/ecchymotic changes. No abnormal fluid collection is seen in the visualized abdominal wall. Questionable minimal asymmetric prominent appearance of the left iliacus/iliopsoas muscle is seen. Minimal intramuscular hematoma within the left iliacus/iliopsoas muscle cannot be entirely excluded on this examination. Clinical correlation and continued follow-up with possible follow-up imaging is recommended. Tiny right pleural effusion is seen. Mild posterior dependent bibasilar atelectasis is seen. A 12 mm low-density is seen about the anterior pancreatic neck, suggestive of a pancreatic cystic structure. A pancreatic MRI with and without contrast is suggested for better evaluation. Enlarged prostate gland. Irregular appearance of the posterior urinary bladder base is seen, which may be related to mass effect from the adjacent enlarged prostate gland. However, intrinsic urinary bladder disease cannot be excluded. Clinical correlation is recommended. Additionally, mild wall thickening of the urinary bladder is seen. Moderate sized hiatal hernia. Likely bilateral renal cyst/cystic structures. Partially visualized fat-containing small, moderate-sized left inguinal hernias are seen. There is no evidence for bowel obstruction. Electronically authenticated by: DAVONTE GARCES Date: 2020-12-16 16:57[facility]zer HospitalPROF CHEM 8 (BAS METB)on 58-04-1617Gmxxw gap [Moles/Vol]11.2 mmol/LNormalMount St. Mary HospitalComment on above:Performed By: #### CMP, BNP #### [facility] [address] [place] [address] Ulcero KarenCalcium [Mass/Vol]8.8 mg/dLNormal8.4-10.2[facility] Comment on above:Performed By: #### CMP, BNP #### [facility] [address] [place] [address] Lucero KarenChloride [Moles/Vol]106 mmol/BWiqicv02-220WtuMount St. Mary Hospital Comment on above:Performed By: #### CMP, BNP #### [facility] [address] [place] [address] Lucero KarenCO2 [Moles/Vol]24.9 mmol/SLzraoy13.0-30.0The [facility] Comment on above:Performed By: #### CMP, BNP #### [facility] [address] [address] Lucero KarenCreatinine [Mass/Vol]1.69 mg/dLCritically high0.66-1.25The [facility] CenterComment on above:Performed By: #### CMP, BNP #### [facility] [address] [address] Lucero KarenEGFR-AF QFSLXYZF82 mL/min/1.76e3Raojatkshp low>=60The [facility] CenterComment on above:Performed By: #### CMP, BNP #### [facility] [address] [place] [address] Lucero KarenEGFR-NON AF TIXXVNGL88 mL/min/1.89g2Nynhnkhirt low>=60The [facility] CenterComment on above:Performed By: #### CMP, BNP #### [facility] [address] [place] [address] Lucero KarenGlucose [Mass/Vol]107 mg/dLCritically tsxz77-809Ysz [facility] CenterComment on above:Performed By: #### CMP, BNP #### [facility] [address] [place] [address] Lucero KarenPotassium [Moles/Vol]4.1 mmol/LNormal3.4-5.0The [facility] Comment on above:Performed By: #### CMP, BNP #### [facility] [address] [place] [address] Lucero KarenSodium [Moles/Vol]138 mmol/INexugh902-610Yrz [facility] Comment on above:Performed By: #### CMP, BNP #### [facility] [address] [place] [address] Lucero KarenUrea nitrogen [Mass/Vol]23.0 mg/dLCritically high9.0-20.0The [facility] CenterComment on above:Performed By: #### CMP, BNP #### [facility] [address] [id number] Lucero KarenUrea nitrogen/Creatinine [Mass ratio]13.6 mg/mgNoTwin City Hospitale [facility] CenterComment on above:Performed By: #### CMP, BNP #### [facility] [address] [id number] Lucero KarenPROTIMEon 74-10-4274QPA Coag (PPP) [Relative time]1.09 {INR}Normal The [facility] CenterComment on above:Performed By: #### CMP, BNP, HSTROPN #### [facility] [address] [id number] Lucero KarenINR GUIDELINESSEE BELOWNoAdams County HospitalComment on above: Result Comment: DESIRED INR: 2.0 - 3.0 CONDITIONS NOT LISTED BELOW 2.5 - 3.5 FOR PROSTHETIC HEART VALVE REPLACEMENT 2.5 - 3.5 RECURRENT THROMBOSISPerformed By: #### CMP, BNP, HSTROPN #### [facility] [address] [place] [address] Lucero KarenPT Coag (PPP) [Time]11.8 sCritically high9.0-11.6The [facility] CenterComment on above:Performed By: #### CMP, BNP, HSTROPN #### [facility] [address] [place] [address] Lucero KarenPTTon 47-46-6024wNVR Coag (Bld) [Time]27.4 zWdvthx05.3-36.2The [facility] CenterComment on above:Performed By: #### CMP, BNP, HSTROPN #### [facility] [address] [place] [address] Lucero KarenCOVID-19 Positive/Negativeon 32-05-9415MTIL-CoV-2 (COVID-19) N gene OBINNA+probe Ql (Resp)NegativeNegativeUniversity Hospitals Lake West Medical Center CtrComment on above:Reference: NegativeTesting for SARS-CoV-2 by RT-PCRThis test was developed and its performance characteristics determined by [employer] ([employer]) and validated at the [facility]. This test has not been FDA cleared or approved. This test has been authorized by FDA under an Emergency Use Authorization (EUA). This test has been validated in accordance with the FDA's Guidance Document (Policy for Diagnostics Testing in Laboratories Certified to Perform High Complexity Testing under CLIA prior to Emergency Use Authorization for Coronavirus Disease-2019 duringthe Public Health Emergency) issued on November 21, 2019. This test is only authorized for the durationof time the declaration that circumstances exist justifying the authorization of the emergency use of in vitro diagnostic tests for detection of SARS-CoV-2 virus and/or diagnosis of COVID-19 infection under section 564(b)(1) of the Act, 21 U.S.C. 360bbb-3(b)(1), unless the authorization is terminated or revoked sooner. Laboratory - Microbiology and Antimicrobial susceptibilityon 12-10-2020 SARS-CoV-2 (COVID-19) RNA OBINNA+probe Ql (Unsp spec)N/[facility] CtrSerum or plasma chloride measurement (moles/volume)on 28-49-3479Hnbgapxz [Moles/Vol]107 mmol/U81-074VhboelqurUniversity Hospitals Lake West Medical Center CtrSerum or plasma potassium measurement (moles/volume)on 95-85-5373Rkwkmzqsd [Moles/Vol]4.2 mmol/L 3.5-5.1FMemorial Health System [facility]etta [facility] CtrSerum or plasma sodium measurement (moles/volume)on 76-12-9930Mzhwci [Moles/Vol]138 mmol/X477-371IorpbbaxvUniversity Hospitals Lake West Medical Center CtrSerum or plasma total carbon dioxide measurement (moles/volume)on 48-55-9649PC4 [Moles/Vol]23.3 mmol/L22.0-30.0[facility]tr Estimated glomerular filtration rate (GFR) non- Americanon 11-24-2020 GFR/1.73 sq M predicted among non-blacks MDRD (S/P/Bld) [Vol rate/Area]42 mL/Min [facility] CtrNo Panel Informationon 05-11-0463Edtkfpcnr GFR ()51 mL/MinUniversity Hospitals Lake West Medical Center CtrComment on above:GFR estimated reference range: According to KDOQI guidelines, <60 ml/min/1.73m2 is sufficient todiagnose a patient with chronic kidney disease.Otheron 11-24-2020 GFR/1.73 sq M.predicted MDRD (S/P/Bld) [Vol rate/Area]51 mL/MinUniversity Hospitals Lake West Medical Center CtrComment on above:GFR estimated reference range: According to KDOQI guidelines, <60 ml/min/1.73m2 is sufficient todiagnose a patient with chronic kidney disease.Pharmacy Creatinine Clearance (ChemN/AFMemorial Health System [facility] Hospital CtrSerum or plasma aspartate aminotransferase measurement (enzymatic activity/volume)on 11-17-5108QGI [Catalytic activity/Vol]21 U/J40-10LdauuzqufUniversity Hospitals Lake West Medical Center CtrSerum or plasma chloride measurement (moles/volume)on 83-96-6064Idalsvuz [Moles/Vol]109 mmol/G52-132QckajxulqMercy Hospital Serum or plasma creatinine measurement with calculation of estimated glomerular filtron 41-56-6881Dodouzfohc [Mass/Vol]1.60 mg/dL0.64-1.27[facility] CtrSerum or plasma potassium measurement (moles/volume)on 11-24-2020 Potassium [Moles/Vol]4.6 mmol/L3.5-5.1FMemorial [facility] CtrSerum or plasma sodium measurement (moles/volume)on 13-17-0384Fcnqef [Moles/Vol]138 mmol/P459-042CnmeyuvusUniversity Hospitals Lake [facility] CtrSerum or plasma thyroid stimulating hormone (TSH) measurement by high sensitivity meton 79-83-8755CAH Qn2.62 u[iU]/mL0.45-5.33[facility] CtrSerum or plasma total carbon dioxide measurement (moles/volume)on 50-30-0788YG1 [Moles/Vol]20.2 mmol/L 22.0-30.0[facility] CtrSerum or plasma urea nitrogen measurement (mass/volume)on 04-49-1973Hslc nitrogen [Mass/Vol]18 mg/dL9-23Mercy HospitalTS DL <= 0.005 mIU/L Qnon 05-34-7927YHW Qn2.62 m[IU]/L 0.45-5.33[facility] CtrAlbumin [Mass/volume] in Serum or Plasma on 89-00-8194Yrsidhy [Mass/Vol]3.3 g/dL3.2-5.5FMemorial Health [facility] Ctr Automated blood platelet count (count/volume)on 59-42-3111Rykcovtym (Bld) [#/Vol]308 10*3/wP058-136LlntdguayUniversity Hospitals [facility] CtrAutomated blood platelet mean volume measurementon 66-05-9948Cxcefyfx mean volume (Bld) [Entitic vol]8.8 fL6.6-10.1FMemorial Health System [facility] CtrAutomated erythrocyte distribution width ratioon 87-00-9538Fwpvkkwtmfx distribution width (RBC) [Ratio]29.2 %12.0-14.8 [facility] CtrAutomated erythrocyte mean corpuscular hemoglobin (mass per erythrocyte)on 39-74-1481VUG (RBC) [Entitic mass]20.2 pg27.5-35.2 [facility] CtrAutomated erythrocyte mean corpuscular hemoglobin concentration measurement (mass/volon 44-29-7908AGXO (RBC) [Mass/Vol]30.3 g/dL 32.5-35.6FMemorial Health System [facility] CtrAutomated erythrocyte mean corpuscular volumeon 22-86-0984ZTU (RBC) [Entitic vol]66.5 fL83.5-101[facility] CtrAutomated erythrocytes count in urine sediment (number/area)on 15-32-8851JDZ Auto (Urine sed) [#/Area]0-1 [HPF][facility] Automated leukocytes count in urine sediment (number/area)on 11-96-8694PUE Auto (Urine sed) [#/Area]0-1 [HPF][facility] CtrAutomated urine color determinationon 08-09-3879Rsxzm (U)YellowYellowUniversity Hospitals Lake [facility] Ctr Bilirubin Test strip Ql (U)on 65-39-1843Fobdzafyv Ql (U)NegativeNegative Mercy HospitalBlood erythrocytes automated count (number/volume) on 50-36-9765OCU (Bld) [#/Vol]5.01 10*6/uL3.90-5.60[facility] CtrBlood hemoglobin measurement (mass/volume)on 58-03-8348Cpoynspsvi (Bld) [Mass/Vol]10.1 g/dL13.0-17.0[facility] CtrBlood leukocytes automated count (number/volume)on 05-00-2988WFK (Bld) [#/Vol]6.8 10*3/uL4.1-10.5 [facility] CtrCT biopsyon 78-24-2033Ahricrmfpjq [Mass/Vol]291 mg/vY240-740DwmilvrgkUniversity Hospitals Lake [facility] CtrEstimated glomerular filtration rate (GFR) non- Americanon 29-42-8824AOV/1.73 sq M predicted among non-blacks MDRD (S/P/Bld) [Vol rate/Area]44 mL/MinUniversity Hospitals Lake [facility] CtrFerritin [Mass/volume] in Serum or Plasmaon 62-10-0303Tmediofi [Mass/Vol]134.5 ng/mL 23.9-336.2FMemorial Health System [facility] CtrHematocrit [Volume Fraction] of Blood by Automated counton 28-67-5694Kupschzbfk (Bld) [Volume fraction]33.3 %38.8-50.0 [facility] CtrIron [Mass/volume] in Serum or Plasmaon 11-16-2020 Iron [Mass/Vol]22 ug/uI06-524DpjyxkywuUniversity Hospitals [facility] CtrIron binding capacity [Mass/volume] in Serum or Plasmaon 91-71-9273Tuot binding capacity [Mass/Vol] 407 ug/kS371-326HfejsyrcrUniversity Hospitals Lake [facility] CtrIron saturation [Mass Fraction] in Serum or Plasmaon 84-25-3886Ruxz saturation [Mass fraction]5.0 %20-50[facility] CtrMetabolic Panelon 93-32-2103Ebfnuysza [Mass/Vol]1.9 mg/dL 1.6-2.6FMemorial Health System [facility] CtrNitrite Test strip Ql (U)on 11-16-2020 Nitrite Ql (U)NegativeNegativeUniversity Hospitals [facility] CtrNo Panel Information on 41-08-9907Ixwqihnqs GFR ()54 mL/MinUniversity Hospitals Lake [facility] CtrComment on above:GFR estimated reference range: According to KDOQI guidelines, <60 ml/min/1.73m2 is sufficient todiagnose a patient with chronic kidney disease.Otheron 79-89-349789655628-Ahpcgcv Vitamin D Total21.1 ng/cL12-965 [facility] CtrComment on above:VITAMIN D STATUS 25(OH)VITAMIN D RANGE (ng/mL) Deficient <20 Insufficient 20 to <96Jvsdmnehre27 to 100Reference: Altaf MF,Dejuan NC, Eleuterio BUSCH, et al. Evaluation,treatment, and prev ention of vitamin D deficiency; an Endocrine Society clinical practice guideline. JCEM. 2010; 96(7):1911-30.GFR/1.73 sq M.predicted MDRD (S/P/Bld) [Vol rate/Area]54 mL/MinUniversity Hospitals Lake [facility] CtrComment on above:GFR estimated reference range: According to KDOQI guidelines, <60 ml/min/1.73m2 is sufficient todiagnose a patient with chronic kidney disease.Pharmacy Creatinine Clearance (ChemN/[facility] CtrPhosphate [Mass/volume] in Serum or Plasmaon 51-70-7133Gjnuvqttk [Mass/Vol]2.7 mg/dL2.5-4.6FMemorial Health System [facility] CtrSerum or plasma calcium measurement (mass/volume)on 09-16-5878Hbskxvg [Mass/Vol]8.6 mg/dL8.2-10.2FMemorial Health System [facility] CtrSerum or plasma chloride measurement (moles/volume)on 42-63-8290Rbrxlman [Moles/Vol]108 mmol/L 95-114[facility] CtrSerum or plasma creatinine measurement with calculation of estimated glomerular filtron 78-61-1494Jiaatsgwgy [Mass/Vol]1.54 mg/dL0.64-1.27[facility] CtrSerum or plasma glucose measurement (mass/volume)on 44-52-1980Isxdznj [Mass/Vol]96 mg/bS12-860GdbchqfxzUniversity Hospitals Lake [facility] CtrComment on above:ADA recommended reference rangeRandom Glucose Reference Range is dependent on time and content of last meal. Glucose of more than 200 mg/dL in a nonstressed, ambulatory subject supports the diagnosisof Diabetes Mellitus.Serum or plasma intact parathyroid hormone measurement (mass/volume)on 67-84-9688Zwabppslqd.intact [Mass/Vol]105.0 pg/gM37-97McbfboyzvUniversity Hospitals Lake West [facility] Center CtrSerum or plasma potassium measurement (moles/volume)on 46-27-8521Ugeeefply [Moles/Vol]4.5 mmol/L3.5-5.1FC[facility] Serum or plasma sodium measurement (moles/volume)on 23-83-8686Ytsgry [Moles/Vol] 138 mmol/K210-170GaosypurwUniversity Hospitals Lake [facility] CtrSerum or plasma total carbon dioxide measurement (moles/volume)on 12-90-8674ON2 [Moles/Vol]21.8 mmol/L 22.0-30.0[facility] CtrSerum or plasma urea nitrogen measurement (mass/volume)on 51-70-1020Xjby nitrogen [Mass/Vol]13 mg/dL9-[facility] CtrSpecific gravity of Urine by Automated test stripon 06-34-8385Iykqfuis gravity (U) [Rel density]1.0231.001-1.030Mercy HospitalSquamous epithelial cells detection in urine sediment by light microscopyon 98-43-1238Oqxozhhuyz cells.squamous LM Ql (Urine sed)0-1 [HPF] [facility] CtrUrinalysison 22-28-3458Hpkxtxq casts LM Ql (Urine sed)0-8 [LPF][facility]cy HospitalUrine bacteria detection by automated methodon 53-59-6165Yaahfoie Auto Ql (U)None seenNone SeenUniversity Hospitals Lake [facility] CtrUrine clarity by refractometry automatedon 31-45-7446Norjenb Refractometry automated (U)ClearClearFMemorial Health System [facility] CtrUrine glucose measurement by automated test strip (mass/volume)on 62-78-5110Sqcrabw Auto test strip (U) [Mass/Vol]Normal mg/dLNormalMercy HospitalUrine hemoglobin detection by automated test stripon 04-81-8331Qwhrweydox Auto test strip Ql (U)NegativeNegativeUniversity Hospitals [facility] CtrHemoglobin Auto test strip Ql (U)NegativeNegativeMercy HospitalUrine ketones measurement by automated test strip (mass/volume)on 60-20-2686Jhpcubu (U) [Mass/Vol]TraceNegativeFirelands Regional Medical CtrUrine leukocyte esterase detection by automated test stripon 79-38-8806Wqjiihgzw esterase Auto test strip Ql (U)NegativeNegativeUniversity Hospitals [facility] CtrLeukocyte esterase Auto test strip Ql (U)NegativeNegLutheran Hospital CtrUrine nitrite detection by test stripon 08-18-6137Zaxlwmu Ql (U)NegativeNegativeUniversity Hospitals [facility] CtrUrine pH measurement by automated test stripon 44-93-9226gY (U)5.5 [pH]5.0-9.0[facility] CtrUrine protein measurement by automated test strip (mass/volume)on 01-05-4042Jqbojsx (U) [Mass/Vol]Trace mg/dL NegativeUniversity Hospitals Lake [facility] CtrUrine total bilirubin detection by test stripon 02-06-2662Ylfauvuxl Ql (U)NegativeNegLutheran Hospital Ctr Urine urobilinogen measurement by automated test strip (mass/volume)on 34-79-4754Cpylyammakdh (U) [Mass/Vol]Normal mg/dLNormalUniversity Hospitals [facility] CtrCARDIAC STRESS TESTon 23-16-6199ZKZEYWP STRESS TESTThe [place], [place] NAME: AYAD DE LA ROSA DATE OF : MEDICAL REC#: [id number] LEGISLATIVE ANALYST: 1406 GONZALEZ CHATMANADMKRZYSZTOF DATE: 10/26/2020 08:09:00 [employer] TECHNICAL OFFICER DATE: 10/26/2020 20:02 DICTATING PHYSICIAN: DENISE AMOR DICTATION DATE: 10/26/2020 12:00 CARDIAC STRESS TEST Requesting Physician: Paulina Tyson MD Procedure Date: 10/26/2020 INDICATION: Fatigue, cardiomyopathy, atrial flutter. METHOD: After risks, and benefits were explained, the patient was brought to the stress lab in a resting and fasting state. He was connected to the appropriate hemodynamic and electrocardiographic monitoring. Lexiscan 0.4 mg was infused over 15 seconds; the patient was monitored for the standard duration. He was to be transferred to the nuclear lab for nuclear imaging. He tolerated the procedure well. There were no complications. FINDINGS: HEMODYNAMICS: Resting heart rate was 81 beats per minute with a resting blood pressure of 122/68, peak heart rate was 96 with a peak blood pressure of 162/64. ELECTROCARDIOGRAPHY: Rest EKG: Atrial flutter, heart rate of 81 beats per minute, poor R wave progression cannot rule out septal infarct age indeterminate, nonspecific ST and T wave changes. During infusion and recovery: Premature ventricular contractions versus supraventricular contractions with aberrancy are seen, no significant ST or T wave changes are noted. No significant arrhythmias are seen. The patient had no symptoms during the test. IMPRESSIONS: 1. No ischemic EKG changes seen on Lexiscan pharmacological stress testing. 2. Nuclear images are to be read, interpreted, and reported in a separate dictation. Electronically Authenticated and Edited by: Denise Amor MD on 10/27/2020 12:54 PM EST IFC Signed and Approved by: DR DENISE AMOR 10/27/2020 12:54:00[facility] STRESS/REST MULTIon 10-26-2020 NM STRESS/REST MULTIPatient: AYAD DE LA ROSA Exam Date: 10/26/2020 : 1945 Gender:M Ordering : DR PAULINA TYSON . Admission #: [id number] Family : Order #: [id number] CLICK HERE TO VIEW EXAM RADIOLOGY REPORT PROCEDURE: RADIONUCLIDE IMAGING STRESS/REST MULTI COMPARISON: None. INDICATIONS: Dyspnea, orthostatic hypertension, cardiomyopathy, atrial fibrillation TECHNIQUE: Exam Description: Rest/Stress one day protocol gated SPECT Rest Imagin.0 mCi Tc-99m Cardiolite IV on 10/26/2020 Stress Imaging 31.3 mCi Tc-99m Cardiolite IV on 10/26/2020 Exercise Protocol: 0.4 mg Lexiscan given IV Heart Rate (bpm): Rest: 81 Max: 96 PMHR: 66 Blood Pressure: Rest: 122/68 Max: 162/74 Symptoms: Rest and peak stress ECG findings were normal and the exercise portion of the study was normal per attending physician Dr. Amor . For more details please see separate cardiac stress test report. FINDINGS: QUALITY OF STUDY: Excellent. PERFUSION DEFECT: LOCATION: Basal anterior. Basal anteroseptal. Basal inferoseptal. Basal inferior. Basal inferolateral. Mid-inferior. Apical inferior. [place]. SIZE: Large (5 or more segments). SEVERITY: Severe. TYPE: Persistent. WALL MOTION: Moderate hypokinesis: LV SIZE: Enlarged; EDV 135 mL. TID / TCD: None; 0.9 LVEF: Abnormal. Calculated EF 49%. SUMMARY: Myocardial perfusion imaging study has ABNORMAL findings. CONCLUSION: 1. Large fixed transmural defect inferior wall, RCA distribution 2. Mild diffuse hypokinesia with low left ventricular ejection fraction of 49% 3. Enlarged left ventricle, EDV 135 milliliters 4. Normal exercise test Dictated by: Cuong Hanson MD on 10/27/2020 at 07:47 Approved by: Cuong Hanson MD on 10/27/2020 at 07:50Holzer HospitalBNP on 59-34-8180Jvidupfewtf peptide B (Bld) [Mass/Vol]2542.0 pg/mLCritically high <=900.0The [facility] CenterComment on above:Result Comment: Test Repeated. Critical Value VerifiedPerformed By: #### CMP, BNP, HSTROPN #### [facility] [address] [place] [address] Luc[place] KarenCBC AUTO DIFFon 15-72-3028UHFB #0.0 103/ulNormal0.0-0.1The [facility] CenterComment on above:Performed By: #### CMP, BNP #### [facility] [address] [place] [address] [place] KarenBasophils/100 WBC (Bld)0.1 %Critically low0.2-2.0The [facility] CenterComment on above:Performed By: #### CMP, BNP #### [facility] [address] [place] [address] [place] KarenEO #0.1 103/ulNormal0.0-0.7The [facility] CenterComment on above: Performed By: #### CMP, BNP #### [facility] [address] [place] [address] [place] KarenEosinophils/100 WBC (Bld)0.8 %Critically low0.9-7.0The [facility] CenterComment on above:Performed By: #### CMP, BNP #### [facility] [address] [place] [address] Lucero KarenErythrocyte distribution width (RBC) [Ratio]19.6 %Critically high 11.0-15.0The [facility] CenterComment on above:Performed By: #### CMP, BNP #### [facility] [address] [place] [address] [place] KarenHematocrit (Bld) [Volume fraction]30.0 %Critically low42.0-54.0The [facility] CenterComment on above:Performed By: #### CMP, BNP #### [facility] [address] [place] [address] [place] KarenHemoglobin (Bld) [Mass/Vol]8.3 g/dLCritically low14.0-18.0The [facility] CenterComment on above:Performed By: #### CMP, BNP #### [facility] [address] [place] [address] [place] KarenIG #0.06 10e3/ulCritically high0.00-0.03The [facility] CenterComaspirus ontonagon [facility] on above:Performed By: #### CMP, BNP #### [facility] [address] [place] [address] [place] KarenIG %0.4 %Normal0.0-0.5The [facility] CenterComaspirus ontonagon hospital on above: Performed By: #### CMP, BNP #### [facility] [address] [place] [address] [place] KarenLYMPH #1.9 103/ulNormal1.2-3.8The [facility] CenterComment on above: Performed By: #### CMP, BNP #### [facility] [address] [place] [address] Luc[place] KarenLymphocytes/100 WBC (Bld)13.6 %Critically low20.5-60.0The [facility] CenterComaspirus ontonagon hospital on above:Performed By: #### CMP, BNP #### [facility] [address] [place] [address] [place] KarenMANUAL DIFF REQNONormalThe [facility] CenterComment on above: Performed By: #### CMP, BNP #### [facility] [address] [place] [address] [place] ChristopherMCH (RBC) [Entitic mass]18.1 pgCritically low25.9-34.0The [facility] CenterComment on above:Performed By: #### CMP, BNP #### [facility] [address] [place] [address] [place] ChristopherMCHC (RBC) [Mass/Vol]27.7 g/dLCritically low29.9-35.2The [facility] CenterComment on above:Performed By: #### CMP, BNP #### [facility] [address] [place] [address] [place]ero CarlenMCV (RBC) [Entitic vol]65.4 fLCritically low80.0-94.0The [facility] CenterComment on above:Performed By: #### CMP, BNP #### [facility] [address] [place] [address] [place] KarenMONO #1.2 103/ulCritically high0.3-0.8The [facility] CenterComment on above:Performed By: #### CMP, BNP #### [facility] [address] [place] [address] [place] KarenMonocytes/100 WBC (Bld)8.4 %Normal1.7-12.0The [facility] Comment on above:Performed By: #### CMP, BNP #### [facility] [address] [place] [address] [place] KarenNEUT #10.9 103/ulCritically high1.4-6.5The [facility] CenterComment on above:Performed By: #### CMP, BNP #### [facility] [address] [place] [address] [place] KarenNeutrophils/100 WBC (Bld)76.7 %Critically high43.0-75.0The [facility] CenterComment on above:Performed By: #### CMP, BNP #### [facility] [address] [place] [address] [place] KarenPlatelet mean volume (Bld) [Entitic vol]9.6 fLNormal9.5-13.5The [facility] CenterComment on above:Performed By: #### CMP, BNP #### [facility] [address] [place] [address] [place] PlxuuVPK322 103/qoQnntrx668-204Hyx [facility] CenterComment on above: Performed By: #### CMP, BNP #### [facility] [address] [place] [address] [place] KarenRBC4.59 106/ulCritically low4.70-6.10The [facility] CenterComment on above:Performed By: #### CMP, BNP #### [facility] [address] [place] [address] [place] WswjiDPA33.2 103/ulCritically high4.0-11.0The [facility] CenterComment on above:Performed By: #### CMP, BNP #### [facility] [address] [place] [address] [place] KarenPROF 14(COMP METB)on 04-63-3038Wyosiaz [Mass/Vol]2.8 g/dLCritically low3.5-5.0The [facility] CenterComment on above:Performed By: #### CMP, BNP, HSTROPN #### [facility] [address] [place] [address] [place] KarenAlbumin/Globulin [Mass ratio]0.8 {ratio}NormalMount St. [facility] Comment on above:Performed By: #### CMP, BNP, HSTROPN #### [facility] [address] [place] [address] [place] KarenALP [Catalytic activity/Vol]56 U/PBmoffq88-557Qni [facility] Comment on above:Performed By: #### CMP, BNP, HSTROPN #### [facility] [address] [place] [address] [place] KarenALT [Catalytic activity/Vol]12 U/LCritically yxo04-20Smw [facility] CenterComment on above:Performed By: #### CMP, BNP, HSTROPN #### [facility] [address] [place] [address] [place] KarenAnion gap [Moles/Vol]10.8 mmol/LNormalThe [facility] CenterComment on above:Performed By: #### CMP, BNP, HSTROPN #### [facility] [address] [place] [address] [place] KarenAST [Catalytic activity/Vol]10 U/LCritically axn71-20Gkx [facility] CenterComment on above:Performed By: #### CMP, BNP, HSTROPN #### [facility] [address] [address] [place]ero KarenBilirubin [Mass/Vol]0.3 mg/dLNormal0.2-1.3TMercy Health [facility] Comment on above:Performed By: #### CMP, BNP, HSTROPN #### [facility] [address] [place] [address] [place] KarenCalcium [Mass/Vol]8.5 mg/dLNormal8.4-10.2[facility] Comment on above:Performed By: #### CMP, BNP, HSTROPN #### [facility] [address] [place] [address] [place] KarenChloride [Moles/Vol]105 mmol/FBfrvio86-880Kuw [facility] Comment on above:Performed By: #### CMP, BNP, HSTROPN #### [facility] [address] [place] [address] [place] KarenCO2 [Moles/Vol]25.7 mmol/JLksaem20.0-30.0The [facility] Comment on above:Performed By: #### CMP, BNP, HSTROPN #### [facility] [address] [place] [address] [place] KarenCreatinine [Mass/Vol]2.09 mg/dLCritically high0.66-1.25The [facility] CenterComment on above:Performed By: #### CMP, BNP, HSTROPN #### [facility] [address] [place] [address] [place] KarenEGFR-AF LMNKLRAV22 mL/min/1.93m3Gdhziulgnc low>=60The [facility] CenterComment on above:Performed By: #### CMP, BNP, HSTROPN #### [facility] [address] [place] [address] [place] KarenEGFR-NON AF FVBDNFBD37 mL/min/1.48w2Dnhefsamkc low>=60The [facility] CenterComment on above:Performed By: #### CMP, BNP, HSTROPN #### [facility] [address] [place] [address] [place] KarenGlobulin (S) [Mass/Vol]3.3 g/dLNormalThe [facility] CenterComment on above:Performed By: #### CMP, BNP, HSTROPN #### [facility] [address] [place] [address] [place] KarenGlucose [Mass/Vol]103 mg/xMEyvnwo70-411Gpk [facility] CenterComment on above:Performed By: #### CMP, BNP, HSTROPN #### [facility] [address] [place] [address] [place] KarenPotassium [Moles/Vol]4.5 mmol/LNormal3.4-5.0The [facility] Comment on above:Performed By: #### CMP, BNP, HSTROPN #### [facility] [address] [place] [address] [place] KarenProtein [Mass/Vol]6.1 g/dLNormal6.1-8.2The [facility] CenterComment on above:Performed By: #### CMP, BNP, HSTROPN #### [facility] [address] [place] [address] [place] KarenSodium [Moles/Vol]137 mmol/YFbwdiy082-703Enu [facility] Comment on above:Performed By: #### CMP, BNP, HSTROPN #### [facility] [address] [place] [address] [place] KarenUrea nitrogen [Mass/Vol]39.0 mg/dLCritically high9.0-20.0The [facility] CenterComment on above:Performed By: #### CMP, BNP, HSTROPN #### [facility] [address] [place] [address] [place]ero KarenUrea nitrogen/Creatinine [Mass ratio]18.7 mg/mgNormalThe [facility] CenterComment on above:Performed By: #### CMP, BNP, HSTROPN #### [facility] [address] [place] [address] [place] KarenBNPon 87-24-0864Pbwzldvmsmt peptide B (Bld) [Mass/Vol]2768.0 pg/mL Critically high<=900.0The [facility] Hospitalment on above:Result Comment: test repeated critical value verifiedPerformed By: #### CMP, BNP #### [facility] [address] [place] [address] [place] KarenCBC W MANUAL DIFFon 28-63-3154MDJOUAXFAUER0+NormalThe [facility] CenterComment on above:Performed By: #### CMP, BNP, HSTROPN #### [facility] [address] [place] [address] [place] KarenATYPICAL LYMPH #NormalMount St. Mary HospitalComment on above: Performed By: #### CMP, BNP, HSTROPN #### [facility] [address] [place] [address] [place] KarenATYPICAL LYMPH %NormalThe [facility] CenterComaspirus ontonagon hospital on above: Performed By: #### CMP, BNP, HSTROPN #### [facility] [address] [place] [address] [place] KarenBAND #0.0 103/ulNormal0.0-0.3The [facility] CenterComment on above: Performed By: #### CMP, BNP, HSTROPN #### [facility] [address] [place] [address] [place] KarenBAND %0 %Normal0-5The [facility] CenterComment on above:Performed By: #### CMP, BNP, HSTROPN #### [facility] [address] [place] [address] [place] KarenBASOM #0.00 103/ulNormal0.00-0.10The [facility] on above:Performed By: #### CMP, BNP, HSTROPN #### [facility] [address] [place] [address] [place] KarenBASOM %0.0 %Critically low0.2-2.0The [facility] on above:Performed By: #### CMP, BNP, HSTROPN #### [facility] [address] [place] [address] [place] KarenBLAST #NormalThe [facility] on above:Performed By: #### CMP, BNP, HSTROPN #### [facility] [address] [place] [address] [place] KarenBLAST %NormalThe [facility] on above:Performed By: #### CMP, BNP, HSTROPN #### [facility] [address] [place] [address] [place] KarenCORRECTED WBCNormal4.0-11.0[facility] on above: Performed By: #### CMP, BNP, HSTROPN #### [facility] [address] [place] [address] [place] KarenEOS #0.00 103/ulNormal0.00-0.70[facility] on above:Performed By: #### CMP, BNP, HSTROPN #### [facility] [address] [place] [address] [place] KarenEOS%0.0 %Critically low0.9-7.0[facility] on above: Performed By: #### CMP, BNP, HSTROPN #### [facility] [address] [place] [address] [place] WzrdpPFY73.9 %Critically low42.0-54.0[facility] on above:Performed By: #### CMP, BNP, HSTROPN #### [facility] [address] [place] [address] [place] KarenHGB8.2 g/dlCritically low14.0-18.0[facility] on above:Performed By: #### CMP, BNP, HSTROPN #### [facility] [address] [address] [place] KarenHYPOCHROMASIA1+NormalThe [facility] CenterComment on above:Performed By: #### CMP, BNP, HSTROPN #### [facility] [address] [address] [place] KarenLYMPHM #0.66 103/ulCritically low1.20-3.80The [facility] Comment on above:Performed By: #### CMP, BNP, HSTROPN #### [facility] [address] [place] [address] [place] KarenLYMPHM%7.0 %Critically low20.5-60.0The [facility] CenterComment on above:Performed By: #### CMP, BNP, HSTROPN #### [facility] [address] [place] [address] [place] FlisjCCJ35.9 pgCritically low25.9-34.0The [facility] CenterComment on above:Performed By: #### CMP, BNP, HSTROPN #### [facility] [address] [place] [address] [place] IvwtcKPEL67.4 g/dlCritically low29.9-35.2The [facility] CenterComment on above:Performed By: #### CMP, BNP, HSTROPN #### [facility] [address] [place] [address] [place] XfmlmLRR95.1 fLCritically low80.0-94.0The [facility] CenterComment on above:Performed By: #### CMP, BNP, HSTROPN #### [facility] [address] [place] [address] [place] KarenMETAMYELOCYTE #NormalThe [facility] CenterComment on above:Performed By: #### CMP, BNP, HSTROPN #### [facility] [address] [place] [address] [place] KarenMETAMYELOCYTE %NormalThe [facility] HospitalComment on above:Performed By: #### CMP, BNP, HSTROPN #### [facility] [address] [address] [place] KarenMONOM#0.00 103/ulCritically low0.30-0.80[facility] on above:Performed By: #### CMP, BNP, HSTROPN #### [facility] [address] [place] [address] [place] KarenMONOM%0.0 %Critically low1.7-12.0[facility] on above:Performed By: #### CMP, BNP, HSTROPN #### [facility] [address] [place] [address] [place] KarenMPV9.9 fLNormal9.5-13.5[facility] on above: Performed By: #### CMP, BNP, HSTROPN #### [facility] [address] [place] [address] [place] KarenMYELOCYTE #NormalNor[facility] on above:Performed By: #### CMP, BNP, HSTROPN #### [facility] [address] [place] [address] [place] KarenMYELOCYTE %NormalThe [facility] on above:Performed By: #### CMP, BNP, HSTROPN #### [facility] [address] [place] [address] [place] KarenNRBCNormalThe [facility] CenterComasp[facility] on above:Performed By: #### CMP, BNP, HSTROPN #### [facility] [address] [place] [address] [place] KarenOVALOCYTESSLIGHTNormalThe [facility] CenterComasp[facility] on above: Performed By: #### CMP, BNP, HSTROPN #### [facility] [address] [place] [address] [place] GmiddRGD415 103/mwDchucm685-946Hhn [facility] CenterComasp[facility] on above: Performed By: #### CMP, BNP, HSTROPN #### [facility] [address] [place] [address] [place] KarenRBC4.59 106/ulCritically low4.70-6.10The [facility] CenterComment on above:Performed By: #### CMP, BNP, HSTROPN #### [facility] [address] [place] [address] [place] ZmmgvJPW33.7 %Critically high11.0-15.0The [facility] CenterComment on above:Performed By: #### CMP, BNP, HSTROPN #### [facility] [address] [place] [address] [place] KarenSEG #8.74 103/ulCritically high1.40-6.50The [facility] CenterComment on above:Performed By: #### CMP, BNP, HSTROPN #### [facility] [address] [place] [address] [place] KarenSEG %93.0 %Critically high43.0-75.0The [facility] CenterComment on above:Performed By: #### CMP, BNP, HSTROPN #### [facility] [address] [place] [address] [place] KarenWBC9.4 103/ulNormal4.0-11.0The [facility] CenterComment on above: Performed By: #### CMP, BNP, HSTROPN #### [facility] [address] [place] [address] [place] KarenPROF 14(COMP METB)on [id number] [Mass/Vol]3.1 g/dLCritically low3.5-5.0The [facility] CenterComment on above:Performed By: #### CMP, BNP #### [facility] [address] [place] [address] [place] KarenAlbumin/Globulin [Mass ratio]0.9 {ratio}NormalMount St. [facility] Comment on above:Performed By: #### CMP, BNP #### [facility] [address] [place] [address] [place] KarenALP [Catalytic activity/Vol]63 U/RQxmkyb11-503TfzMount St. Mary Hospital Comment on above:Performed By: #### CMP, BNP #### [facility] [address] [id number] [place] KarenALT [Catalytic activity/Vol]12 U/LCritically gil97-76Qhs [facility] CenterComment on above:Performed By: #### CMP, BNP #### [facility] [address] [id number] [place] KarenAnion gap [Moles/Vol]13.9 mmol/LNormalThe [facility] CenterComment on above:Performed By: #### CMP, BNP #### [facility] [address] [phone] [place] KarenAST [Catalytic activity/Vol]9 U/LCritically ocg42-94Lfo [facility] CenterComment on above:Performed By: #### CMP, BNP #### [facility] [address] [address] [place] KarenBilirubin [Mass/Vol]0.5 mg/dLNormal0.2-1.3TMercy Health [facility] Comment on above:Performed By: #### CMP, BNP #### [facility] [address] [phone] [place] KarenCalcium [Mass/Vol]8.5 mg/dLNormal8.4-10.2[facility] Comment on above:Performed By: #### CMP, BNP #### [facility] [address] [phone] [place] KarenChloride [Moles/Vol]104 mmol/CYlaitt48-928Kdo [facility] Comment on above:Performed By: #### CMP, BNP #### [facility] [address] [phone] [place] KarenCO2 [Moles/Vol]22.3 mmol/WLspfjp65.0-30.0The [facility] Comment on above:Performed By: #### CMP, BNP #### [facility] [address] [phone] [place] KarenCreatinine [Mass/Vol]2.11 mg/dLCritically high0.66-1.25The [facility] CenterComment on above:Performed By: #### CMP, BNP #### [facility] [address] [address] [place] KarenEGFR-AF BCXONVTO15 mL/min/1.43n3Yiisuxdtqb low>=60The [facility] CenterComment on above:Performed By: #### CMP, BNP #### [facility] [address] [address] [place] KarenEGFR-NON AF AJDBJKUC02 mL/min/1.52z9Jziklobkae low>=60The [facility] HospitalComment on above:Performed By: #### CMP, BNP #### [facility] [address] [phone] [place] KarenGlobulin (S) [Mass/Vol]3.3 g/dLNormalThe [facility] CenterComment on above:Performed By: #### CMP, BNP #### [facility] [address] [address] [place] KarenGlucose [Mass/Vol]157 mg/dLCritically kufw28-449Qpm [facility] CenterComment on above:Performed By: #### CMP, BNP #### [facility] [address] [address] [place] KarenPotassium [Moles/Vol]5.2 mmol/LCritically high3.4-5.0The [facility] CenterComaspirus [facility]ton[facility] on above:Performed By: #### CMP, BNP #### [facility] [address] [address] [place] KarenProtein [Mass/Vol]6.4 g/dLNormal6.1-8.2[facility] St. Mary HospitalComment on above:Performed By: #### CMP, BNP #### [facility] [address] [address] [place] KarenSodium [Moles/Vol]135 mmol/LCritically frf504-003Rqz [facility] CenterComasp[facility] on above:Performed By: #### CMP, BNP #### [facility] [address] [phone] [place] KarenUrea nitrogen [Mass/Vol]31.0 mg/dLCritically high9.0-20.0[facility] on above:Performed By: #### CMP, BNP #### [facility] [address] [place] [address] [place] KarenUrea nitrogen/Creatinine [Mass ratio]14.7 mg/mgNormalThe [facility] on above:Performed By: #### CMP, BNP #### [facility] [address] [place] [address] [place] KarenUA RANDOM W/MICROSCOPICon [id number]H SEEN The [facility] CenterComasp[facility] on above:Performed By: #### CMP, BNP, HSTROPN #### [facility] [address] [place] [address] [place] KarenBilirubin Ql (U)NegativeNormalNEGATIVEThe [facility] on above:Performed By: #### CMP, BNP, HSTROPN #### [facility] [address] [place] [address] [place] KarenCASTNONE SEENNormalNONE SEENNorwalk Memorial Hospital on above: Performed By: #### CMP, BNP, HSTROPN #### [facility] [address] [place] [address] [place] KarenClarity (U)CLEARNormalCLEARThe [facility] on above: Performed By: #### CMP, BNP, HSTROPN #### [facility] [address] [place] [address] [place] KarenColor (U)YELLOWNormalYELLOWMount St. Mary HospitalComaspirus ontonagon hospital on above: Performed By: #### CMP, BNP, HSTROPN #### [facility] [address] [place] [address] [place] KarenCrystals LM Nom (Urine sed)NONE SEENNormalNONE SEENMount St. Mary HospitalComaspirus onton[facility] hospital on above:Performed By: #### CMP, BNP, HSTROPN #### [facility] [address] [place] [address] [place] KarenEpithelial cells LM Ql (Urine sed)NONE SEENNormalNONE SEEN /RAREThe [facility] CenterComment on above:Performed By: #### CMP, BNP, HSTROPN #### [facility] [address] [place] [address] [place] KarenGlucose Ql (U)100 mg/dlAbnormalNEGATIVEMount St. Mary HospitalComaspirus ontonagon hospital on above:Performed By: #### CMP, BNP, HSTROPN #### [facility] [address] [place] [address] [place] KarenHemoglobin Ql (U)NegativeNormalNEGATIVEMount St. Mary HospitalComment on above:Performed By: #### CMP, BNP, HSTROPN #### [facility] [address] [place] [address] [place] KarenKetones Ql (U)NegativeNormalNEGATIVEMount St. Mary HospitalComment on above:Performed By: #### CMP, BNP, HSTROPN #### [facility] [address] [place] [address] [place] KarenLEUKOCYTESNegativeNormalNEGATIVENorwalk Memorial Hospital on above:Performed By: #### CMP, BNP, HSTROPN #### [facility] [address] [place] [address] [place] KarenMUCOUSNONE SEENNormalNONE SEENNorwalk Memorial Hospital on above: Performed By: #### CMP, BNP, HSTROPN #### [facility] [address] [place] [address] [place] KarenNitrite Ql (U)NegativeNormalNEGATIVEMount St. Mary HospitalComment on above:Performed By: #### CMP, BNP, HSTROPN #### [facility] [address] [place] [address] [place] KarenpH (U)5.0 [pH]Normal5-9The [facility] CenterComaspirus onton[facility] on above: Performed By: #### CMP, BNP, HSTROPN #### [facility] [address] [place] [address] [place] KarenRBCNONE SEENAbnormal0-2The [facility]ucho HospitalComment on above: Performed By: #### CMP, BNP, HSTROPN #### [facility] [address] [place] [address] [place] KarenSPEC GRAVITY>=1.339Mtxgmxox8.005-<=1.025[facility] on above:Performed By: #### CMP, BNP, HSTROPN #### [facility] [address] [place] [address] [place] KarenUA PROTEINNegativeNormalNEGATIVE/ TRACEThe [facility] CenterComment on above:Performed By: #### CMP, BNP, HSTROPN #### [facility] [address] [place] [address] [place] KarenUrobilinogen Qn (U)0.2 {Bobby'U}/dLNormal0.2 - 1.0[facility] on above:Performed By: #### CMP, BNP, HSTROPN #### [facility] [address] [place] [address] [place] KarenWBCNONE SEENNormalNONE SEENThe [facility] CenterComaspirus onton[facility] on above: Performed By: #### CMP, BNP, HSTROPN #### [facility] [address] [place] [address] [place] CarlenBNPon [id number] peptide B (Bld) [Mass/Vol]1488.0 pg/mL Critically high<=900.0[facility] on above:Result Comment: TEST REPEATED CRITICAL VALUE VERIFIEDPerformed By: #### CMP, BNP, HSTROPN #### [facility] [address] [place] [address] [place] KarenCARDIAC RENATO 3-6on [id number] [Catalytic activity/Vol]34 U/L Critically tci30-354Vyq [facility] on above:Performed By: #### CMP, BNP, HSTROPN #### [facility] [address] [place] [address] [place] KarenCK.MB [Mass/Vol]0.85 ng/mLNormal<=2.37The [facility] CenterComment on above:Performed By: #### CMP, BNP, HSTROPN #### [facility] [address] [place] [address] [place] ZwecfMKDKDZ58.0 pg/mLNormal4.0-42.2[facility] on above: Result Comment: CUT-OFF POINTS HAVE BEEN ESTABLISHED BASED ON THE FOURTH UNIVERSAL DEFINITIONS OF MYOCARDIAL INFARCTION. THE UPPER REFERENCE LIMIT (URL) OF TROPONIN, DEFINED THE 99TH PERCENTILE OF cTnI DISTRIBUTION IN A REFERENCE POPULATION, HAS BEEN CONFIRMED THE DECISION THRESHOLD FOR HI DIAGNOSIS.Performed By: #### CMP, BNP, HSTROPN #### [facility] [address] [place] [address] [place] KarenCK [Catalytic activity/Vol]30 U/LCritically uhn82-100IzzNorwalk Memorial Hospital on above:Performed By: #### CMP, BNP, HSTROPN #### [facility] [address] [place] [address] [place] KarenCK.MB [Mass/Vol]0.66 ng/mLNormal<=2.37The [facility] on above:Performed By: #### CMP, BNP, HSTROPN #### [facility] [address] [place] [address] [place] UcautHBCDAP35.2 pg/mLNormal4.0-42.2The [facility] on above: Result Comment: CUT-OFF POINTS HAVE BEEN ESTABLISHED BASED ON THE FOURTH UNIVERSAL DEFINITIONS OF MYOCARDIAL INFARCTION. THE UPPER REFERENCE LIMIT (URL) OF TROPONIN, DEFINED THE 99TH PERCENTILE OF cTnI DISTRIBUTION IN A REFERENCE POPULATION, HAS BEEN CONFIRMED THE DECISION THRESHOLD FOR HI DIAGNOSIS.Performed By: #### CMP, BNP, HSTROPN #### [facility] [address] [place] [address] [place] KarenCBC AUTO DIFFon [id number] #0.0 103/ulNormal0.0-0.1The [facility] on above:Performed By: #### CMP, BNP #### [facility] [address] [place] [address] [place] KarenBasophils/100 WBC (Bld)0.4 %Normal0.2-2.0The [facility] Comment on above:Performed By: #### CMP, BNP #### [facility] [address] [place] [address] [place] KarenEO #0.1 103/ulNormal0.0-0.7The [facility] CenterComment on above: Performed By: #### CMP, BNP #### [facility] [address] [place] [address] [place] KarenEosinophils/100 WBC (Bld)1.6 %Normal0.9-7.0The [facility] Comment on above:Performed By: #### CMP, BNP #### [facility] [address] [place] [address] [place] KarenErythrocyte distribution width (RBC) [Ratio]19.0 %Critically high 11.0-15.0The [facility] CenterComment on above:Result Comment: SLIGHT ANISOCYTOSISPerformed By: #### CMP, BNP #### [facility] [address] [place] [address] [place] KarenHematocrit (Bld) [Volume fraction]30.7 %Critically low42.0-54.0The [facility] CenterComment on above:Performed By: #### CMP, BNP #### [facility] [address] [place] [address] [place] KarenHemoglobin (Bld) [Mass/Vol]8.5 g/dLCritically low14.0-18.0The [facility] CenterComment on above:Performed By: #### CMP, BNP #### [facility] [address] [place] [address] [place] KarenIG #0.03 10e3/ulNormal0.00-0.03The [facility] CenterComment on above:Performed By: #### CMP, BNP #### [facility] [address] [place] [address] [place] KarenIG %0.4 %Normal0.0-0.5The [facility] CenterComment on above: Performed By: #### CMP, BNP #### [facility] [address] [place] [address] [place] KarenLYMPH #1.2 103/ulNormal1.2-3.8The [facility] CenterComment on above: Performed By: #### CMP, BNP #### [facility] [address] [place] [address] [place] KarenLymphocytes/100 WBC (Bld)14.2 %Critically low20.5-60.0The [facility] CenterComment on above:Performed By: #### CMP, BNP #### [facility] [address] [place] [address] [place] KarenMANUAL DIFF REQNONormalThe [facility] CenterComment on above: Performed By: #### CMP, BNP #### [facility] [address] [place] [address] [place] KarenMCH (RBC) [Entitic mass]18.0 pgCritically low25.9-34.0The [facility] Hospitalment on above:Performed By: #### CMP, BNP #### [facility] [address] [place] [address] [place] KarenMCHC (RBC) [Mass/Vol]27.7 g/dLCritically low29.9-35.2The [facility] on above:Performed By: #### CMP, BNP #### [facility] [address] [place] [address] [place] KarenMCV (RBC) [Entitic vol]64.9 fLCritically low80.0-94.0The [facility] on above:Result Comment: MODERATE- HYPOCHROMASIA, SLIGHT MICROCYTES, SLIGHT POIKILOCYTOSISPerformed By: #### CMP, BNP #### [facility] [address] [place] [address] [place] KarenMONO #0.9 103/ulCritically high0.3-0.8The [facility] CenterComment on above:Performed By: #### CMP, BNP #### [facility] [address] [place] [address] [place] KarenMonocytes/100 WBC (Bld)10.1 %Normal1.7-12.0The [facility] Comment on above:Performed By: #### CMP, BNP #### [facility] [address] [place] [address] [place] CarlenNEUT #6.3 103/ulNormal1.4-6.5The [facility] CenterComment on above: Performed By: #### CMP, BNP #### [facility] [address] [place] [address] [place] KarenNeutrophils/100 WBC (Bld)73.3 %Pshqiv13.0-75.0The [facility] Comment on above:Performed By: #### CMP, BNP #### [facility] [address] [place] [address] [place] KarenPlatelet mean volume (Bld) [Entitic vol]9.5 fLNormal9.5-13.5The [facility] CenterComment on above:Performed By: #### CMP, BNP #### [facility] [address] [place] [address] [place] WouvjFCK881 103/olGtutnz510-619Est [facility] CenterComment on above: Performed By: #### CMP, BNP #### [facility] [address] [place] [address] [place] KarenRBC4.73 106/ulNormal4.70-6.10The [facility] CenterComment on above: Performed By: #### CMP, BNP #### [facility] [address] [place] [address] [place] KarenWBC8.5 103/ulNormal4.0-11.0The [facility] CenterComment on above: Performed By: #### CMP, BNP #### [facility] [address] [place] [address] [place] KarenCT HEAD WO CONon [id number] HEAD WO CONEXAMINATION: CT HEAD WO CON HISTORY: Syncope. COMPARISON: None. TECHNIQUE: CT examination of the head without IV contrast. Dose reduction techniques were achieved by using automated exposure control and/or adjustment of mA and/or kV according to patient size and/or use of iterative reconstruction technique. FINDINGS: No acute intracranial hemorrhage, mass effect, midline shift or extra-axial fluid collection. There is mild atrophy with concordant prominence of the ventricles. Mild decreased density seen within the supratentorial white matter. No sulcal effacement or loss of domingo/white matter differentiation. No acute osseous abnormality. Visualized paranasal sinuses and mastoid air cells are clear. The orbits and globes are unremarkable. No significant extracranial soft tissue swelling. IMPRESSION: 1. No acute intracranial hemorrhage or mass effect. 2. Mild cerebral atrophy with concordant prominence of the ventricles. Electronically authenticated by: CUONG STEPHENS Date: 2020-09-07 15:59[facility] LIMITED STUDYon [id number] LIMITED STUDYPatient: AYAD DE LA ROSA Exam Date: 09/07/2020 : 1945 Gender:M Ordering : DR PAULINA TYSON . Admission #: [id number] Family : Order #: [id number] CLICK HERE TO VIEW EXAM ECHOCARDIOGRAM REPORT PROCEDURE: CARDIO PULMONARY ECHO LIMITED STUDY INDICATIONS: Atrial Flutter COMPARISON: None. DESCRIPTION: Limited ECHOCARDIOGRAM Real-time transthoracic echocardiography with 2D and M-mode performed. QUALITY: LEFT VENTRICLE: Normal chamber size. Normal left ventricular wall thickness. LV EF: Global left ventricular systolic function is normal; ejection fraction 60 to 65%. No significant wall motion abnormalities are seen. LEFT ATRIUM: Normal chamber size. RIGHT ATRIUM: Normal chamber size. RIGHT VENTRICLE: Normal chamber size. Normal systolic function. TRICUSPID VALVE: Normal mobility and thickness. MITRAL VALVE: Normal mobility and thickness. Mitral annular calcification. AORTIC VALVE: Normal trileaflet appearance. Thickened aortic valve. Normal leaflet mobility. AORTIC ROOT: Normal diameter and appearance. PULMONIC VALVE: Normal thickness and mobility. PERICARDIUM: No evidence of pericardial effusion. IVC: Not well visualized. CONCLUSION: Global left ventricular systolic function is normal. The left atrium is normal in size. The right ventricle is normal in size and systolic function. A limited echocardiogram was performed. Adult Echocardiography Procedure Report Left Ventricle LVEDD (3.7 - 5.6 cm): 5.79 cm LVESD (2.2 - 4.0 cm): 4.11 cm LVIVS thickness (0.6 - 1.2 cm): 9.22 mm LVPW thickness (0.5 - 1.0 cm): 9.04 mm LVOT Area (cm2): 3.80 cm2 LVOT Diameter 2.20 cm Left Ventricular Ejection Fraction: 55 % Left Atrium Left Atrium Systolic Dimension: 4.60 cm Left Atrium Systolic Area(A4C): 20.40 cm2 Left Atrium Systolic Volume(A4C): 23294 mm3 Mitral Valve Right Ventricle Aorta AO Root Diam: 2.80 cm Aortic Valve Tricuspid Valve Pulmonic Valve Right Atrium Dictated by: Denise Amor M.D. on 09/08/2020 at 13:39 Approved by: Denise Amor M.D. on 09/08/2020 at 13:42[facility] HospitalPROF 14(COMP METB)on [id number] [Mass/Vol]3.3 g/dLCritically low 3.5-5.0The [facility] CenterComment on above:Performed By: #### CMP, BNP, HSTROPN #### [facility] [address] [place] [address] [place] KarenAlbumin/Globulin [Mass ratio]1.0 {ratio}NormalMount St. [facility] Comment on above:Performed By: #### CMP, BNP, HSTROPN #### [facility] [address] [place] [address] [place] KarenALP [Catalytic activity/Vol]71 U/GPpktcd30-471Uum [facility] Comment on above:Performed By: #### CMP, BNP, HSTROPN #### [facility] [address] [address] [place] KarenALT [Catalytic activity/Vol]14 U/LCritically grz11-54Pbo [facility] CenterComment on above:Performed By: #### CMP, BNP, HSTROPN #### [facility] [address] [place] [address] [place] KarenAnion gap [Moles/Vol]16.0 mmol/LNormalThe [facility] CenterComment on above:Performed By: #### CMP, BNP, HSTROPN #### [facility] [address] [place], [place] [id number] [place] KarenAST [Catalytic activity/Vol]12 U/LCritically rwq66-36Qlu [facility] CenterComment on above:Performed By: #### CMP, BNP, HSTROPN #### [facility] [address] [place] [address] [place] KarenBilirubin [Mass/Vol]0.6 mg/dLNormal0.2-1.3The [facility] Center Comment on above:Performed By: #### CMP, BNP, HSTROPN #### [facility] [address] [place] [address] Lucero KarenCalcium [Mass/Vol]9.0 mg/dLNormal8.4-10.2[facility] Comment on above:Performed By: #### CMP, BNP, HSTROPN #### [facility] [address] [place] [address] Lucero KarenChloride [Moles/Vol]104 mmol/DQidbcf77-990Cay [facility] Comment on above:Performed By: #### CMP, BNP, HSTROPN #### [facility] [address] [place] [address] Lucero KarenCO2 [Moles/Vol]22.5 mmol/STihqnl48.0-30.0[facility] Comment on above:Performed By: #### CMP, BNP, HSTROPN #### [facility] [address] [place] [address] Lucero KarenCreatinine [Mass/Vol]2.56 mg/dLCritically high0.66-1.25[facility] CenterComment on above:Performed By: #### CMP, BNP, HSTROPN #### [facility] [address] [place] [address] Lucero KarenEGFR-AF TPVCGKCR21 mL/min/1.38e6Mshirdntcg low>=60[facility] CenterComment on above:Performed By: #### CMP, BNP, HSTROPN #### [facility] [address] [place] [address] Lucero KarenEGFR-NON AF XIHURJKF47 mL/min/1.92l7Rhoypvpnhg low>=60[facility] CenterComment on above:Performed By: #### CMP, BNP, HSTROPN #### [facility] [address] [place] [address] Lucero KarenGlobulin (S) [Mass/Vol]3.4 g/dLNormFostoria City HospitalComment on above:Performed By: #### CMP, BNP, HSTROPN #### [facility] [address] [place] [address] Lucero KarenGlucose [Mass/Vol]116 mg/dLCritically vphp20-014Xiy [facility] CenterComment on above:Performed By: #### CMP, BNP, HSTROPN #### [facility] [address] [place] [address] Lucero KarenPotassium [Moles/Vol]4.5 mmol/LNormal3.4-5.0[facility] Comment on above:Performed By: #### CMP, BNP, HSTROPN #### [facility] [address] [place] [address] Lucero KarenProtein [Mass/Vol]6.7 g/dLNormal6.1-8.2[facility] CenterComment on above:Performed By: #### CMP, BNP, HSTROPN #### [facility] [address] [place] [address] Lucero KarenSodium [Moles/Vol]138 mmol/OPgjhca688-098Zig [facility] Comment on above:Performed By: #### CMP, BNP, HSTROPN #### [facility] [address] [place] [address] Lucero KarenUrea nitrogen [Mass/Vol]29.0 mg/dLCritically high9.0-20.0[facility] CenterComment on above:Performed By: #### CMP, BNP, HSTROPN #### [facility] [address] [place] [address] Lucero KarenUrea nitrogen/Creatinine [Mass ratio]11.3 mg/mgNoAdams County HospitalComment on above:Performed By: #### CMP, BNP, HSTROPN #### [facility] [address] [place], [place] [id number] Lucero Maherd Covid-19 PCR (CVDRPD)on 19-35-1477Wiygvolw LDT InfoSEE BELOW NormalThe [facility] on above:Result Comment: This test is not yet approved or cleared by the [place] Food and Drug Administration (FDA) . This test was developed by [employer], [place]. The performance characteristics of this test were validated by The [facility]. The results are not intended to be used as the sole means for clinical diagnosis or patient management decisions. The [facility] is authorized under Clinical Laboratory Improvement Amendments (CLIA) to perform high-complexity testing. When diagnostic testing is negative, the possibility of a false negative should be considered in the context of a patients recent exposures and the presence of clinical signs and symptoms consistent with SARS-CoV-2.Performed By: #### CMP, BNP #### [facility] [address] [place] [address] Lucero Alford-CoV-2 (COVID-19) RNA OBINNA+probe Ql (Unsp spec)Not detectedNormal NOT DETECTEDThe [facility] on above:Result Comment: .Performed By: #### CMP, BNP #### [facility] [address] [place] [address] Lucero DelatorreOPONIN, HIGH SENSITIVITYon 22-68-6663PJOIPL53.1 pg/mLNormal 4.0-42.2[facility] on above:Result Comment: CUT-OFF POINTS HAVE BEEN ESTABLISHED BASED ON THE FOURTH UNIVERSAL DEFINITIONS OF MYOCARDIAL INFARCTION. THE UPPER REFERENCE LIMIT (URL) OF TROPONIN, DEFINED THE 99TH PERCENTILE OF cTnI DISTRIBUTION IN A REFERENCE POPULATION, HAS BEEN CONFIRMED THE DECISION THRESHOLD FOR HI DIAGNOSIS.Performed By: #### CMP, BNP, HSTROPN #### [facility] [address] [place], [place] [id number] Lucero Landon CAROTID ART BILon 41-62-5014MM CAROTID ART BILEXAMINATION: US CAROTID ART JESSIE HISTORY: History of fall COMPARISON: None. TECHNIQUE: Grayscale, color flow, pulse wave Doppler sonographic interrogation of the carotid arteries was performed. Bilateral carotid arterial duplex examination was performed using B-mode, color flow and spectral analysis. Carotid stenosis is reported according to validated velocity parameters, similar to NASCET criteria. FINDINGS: No intraluminal plaque identified within the carotid arteries. RIGHT CAROTID VELOCITIES: (PSV/EDV) CCA proximal: 91.8 cm/sec / 18.0 cm/sec CCA mid: 78.8 cm/sec / 15.4 cm/sec CCA distal: 76.2 cm/sec / 10.2 cm/sec ICA proximal: 103.2 cm/sec / 17.6 cm/sec ICA mid: 90.3 cm/sec / 20.8 cm/sec ICA distal: 88.7 cm/sec / 19.2 cm/sec ECA: 166.9 cm/sec Vertebral: 34.8 cm/sec / antegrade ICA/CCA PSV Ratio : 1.4 Right subclavian artery 108.1 cm/s LEFT CAROTID VELOCITIES: (PSV/EDV) CCA proximal: 180.9 cm/sec / 30.4 cm/sec CCA mid: 131.9 cm/sec / 17.5 cm/sec CCA distal: 108.2 cm/sec / 19.5 cm/sec ICA proximal: 93.5 cm/sec / 30.5 cm/sec ICA mid: 91.9 cm/sec / 19.2 cm/sec ICA distal: 103.2 cm/sec / 20.8 cm/sec ECA: 98.3 cm/sec Vertebral: 72.3 cm/sec / antegrade ICA/CCA PSV Ratio : 1.0 Left subclavian artery 203.4 cm/s Carotid stenosis is reported according to validated velocity parameters, similar to NASCET criteria. IMPRESSION: 1. Normal examination of the carotid arteries. No hemodynamically significant stenosis. Electronically authenticated by: OSMAR KEATING Date: 2020-09-07 18:55[facility] HospitalXR KNEE JESSIE 3 Von 78-58-6521TA KNEE JESSIE 3 VEXAMINATION: XR KNEE JESSIE 3 V HISTORY: Knee pain COMPARISON: No relevant comparison available. FINDINGS: RIGHT FINDINGS: BONES: No acute fracture or dislocation. Mild to moderate tricompartmental osteoarthropathy with mild narrowing of the medial joint space SOFT TISSUES: Negative. No visible soft tissue swelling. OTHER: Sclerosis LEFT FINDINGS: BONES: No acute fracture or dislocation. Mild to moderate tricompartmental osteoarthropathy with moderate narrowing of the medial joint space SOFT TISSUES: Negative. No visible soft tissue swelling. OTHER: Sclerosis IMPRESSION: RIGHT CONCLUSION: Degenerative osteoarthritis, no acute fracture LEFT CONCLUSION: Degenerative osteophytes, no acute fracture Electronically authenticated by: CUONG HANSON Date: 2020-09-07 13:09[facility] HospitalAlbumin [Mass/volume] in Serum or Plasmaon 42-31-9610Dvcdoms [Mass/Vol]3.6 g/dL3.2-5.5FMemorial Health System [facility] CtrAlbumin [Mass/Vol]3.2 g/dLUniversity Hospitals Lake [facility] CtrAlbumin/Protein.total in 24 hour Urine by Electrophoresison 78-97-1421Hvtqjnb Elph (24H U) [Mass fraction]40.7 %[facility] CtrAtypical perinuclear antineutrophil cytoplasmic antibodies measurementon 52-90-4013Wfukrcrpgu cytoplasmic Ab.perinuclear.atypical IF (S) [Titer]<1:20 titerNeg:<1:20[facility] CtrComment on above:The atypical pANCA pattern has been observed in asignificant percentage of patients with ulcerativecolitis,primary sclerosing cholangitis and autoimmune hepatitis.Performed at: [facility] [employer] [id number] Director: Madeline Vegas MD, Phone: [phone] at: [facility] Lab[address] [id number] Director: Ilir Weiner PhD, Phone: [phone] blood platelet count (count/volume)on 04-12-6782Quowzdbny (Bld) [#/Vol]385 10*3/uV030-483CsvyihiyrUniversity Hospitals [facility] CtrAutomated blood platelet mean volume measurementon 10-15-3236Rxzslcpo mean volume (Bld) [Entitic vol]8.5 fL6.6-10.1FMemorial Health System Mari[facility] CtrAutomated erythrocyte distribution width ratioon 35-05-8077Qxojoeobyri distribution width (RBC) [Ratio]18.8 %12.0-14.8[facility] CtrAutomated erythrocyte mean corpuscular hemoglobin (mass per erythrocyte)on 78-75-4487XVB (RBC) [Entitic mass]18.0 pg27.5-35.2FMemorial Health System Marietta [facility] Hospital CtrAutomated erythrocyte mean corpuscular hemoglobin concentration measurement (mass/volon 16-25-0181JYAW (RBC) [Mass/Vol]29.5 g/dL32.5-35.6FMemorial Health System Marietta [facility] Hospital Ctr Automated erythrocyte mean corpuscular volumeon 78-43-2954MYN (RBC) [Entitic vol]61.1 fL83.5-101[facility] CtrAutomated erythrocytes count in urine sediment (number/area)on 83-56-7561ZKC Auto (Urine sed) [#/Area]1-2 [HPF] [facility] CtrAutomated leukocytes count in urine sediment (number/area)on 32-06-0756JBN Auto (Urine sed) [#/Area]1-2 [HPF][facility] CtrBlood erythrocytes automated count (number/volume)on 56-35-4381RKM (Bld) [#/Vol]5.11 10*6/uL3.90-5.60[facility] Ctr Blood hemoglobin measurement (mass/volume)on 95-90-8824Qxkxicjnng (Bld) [Mass/Vol]9.2 g/dL13.0-17.0[facility] CtrBlood leukocytes automated count (number/volume)on 45-70-3347DOL (Bld) [#/Vol]7.3 10*3/uL4.1-10.5 [facility] CtrCT biopsyon 66-71-1323Byllrloupct [Mass/Vol]343 mg/xR057-321MhqznffmfUniversity Hospitals Lake [facility] Center CtrCreatinine [Mass/volume] in Urineon 49-93-6747Qqzhhwlzmw (U) [Mass/Vol]344.7 mg/dLUniversity Hospitals Lake [facility] Center Ctr Comment on above:No reference range establishedEstimated glomerular filtration rate (GFR) non- Americanon 73-58-2334WBS/1.73 sq M predicted among non- blacks MDRD (S/P/Bld) [Vol rate/Area]30 mL/min/{1.73_m2}[facility] CtrFerritin [Mass/volume] in Serum or Plasmaon 03-53-2494Spvsqcan [Mass/Vol]8.9 ng/mL23.9-336.2FMemorial Health System Marietta [facility] Hospital CtrFolate [Mass/volume] in Serum or Plasmaon 78-67-9195Kruvke [Mass/Vol]11.1 ng/mLUniversity [facility]als Lake [facility] CtrComment on above:Folate reference range: >5.9 ng/mlThe WHO technical consultation on folate and vitamin t81oltgpebhgqgr has determined that folate concentrations lessthan 4 ng/ml are considered deficient.Gamma globulin/Protein.total in 24 hour Urine by Electrophoresison 92-66-1156Qsmiy globulin Elph (24H U) [Mass fraction]12.7 %[facility] Hematocrit [Volume Fraction] of Blood by Automated counton 06-91-0874Mqxauuppah (Bld) [Volume fraction]31.2 %38.8-50.0[facility] CtrHepatitis B virus surface Ag [Presence] in Serum or Plasma by Immunoassayon 99-26-8854BFK surface Ag IA QlNegativeNegativeUniversity Hospitals Lake West [facility] Center CtrComment on above: Performed at: true[x] [employer] [place], [place] [id number] Director: Ilir Weiner PhD, Phone: [phone] [Mass/volume] in Serum or Plasmaon 44-22-7628AuV [Mass/Vol]368 mg/dLUniversity Hospitals Lake [facility] Center CtrIgG [Mass/volume] in Serum or Plasmaon 36-95-6708PeR [Mass/Vol]1077 mg/dLUniversity Hospitals Lake [facility] Center CtrIgM [Mass/volume] in Serum or Plasmaon 85-32-8389UaE [Mass/Vol]98 mg/dLUniversity Hospitals Lake [facility] Center CtrComment on above:Performed at: true[x] [employer] [place], [place] [id number] Director: Ilir Weiner PhD, Phone: [phone] for Urineon 08-24-2020 Interpretation Immunofixation (U) [Interp]See commentUniversity Hospitals Lake West Medical Center CtrComment on above:No monoclonality detected.Performed at: true[x] [employer] [place], [place] [id number] Director: Ilir Weiner PhD, Phone: [phone] light chains.kappa.free [Mass/volume] in Serum on 08-51-7119Dymmeqtreycpiy light chains.kappa.free (S) [Mass/Vol]43.1 mg/L [facility] CtrImmunoglobulin light chains.kappa.free/Immunoglobulin light chains.lambda.free [Christine 08-24-2020 Immunoglobulin light chains.kappa.free/Immunoglobulin light chains.lambda.free (S) [Mass ratio]1.38[facility] CtrComment on above:Performed at: - LabCoH[facility] CenterAtqiaj[address] [place], [place] [id number] Director: Ilir Weiner PhD, Phone: [phone] light chains.lambda.free [Mass/volume] in Serum or Plasmaon 58-53-2371Cykcaigeacdtoi light chains.lambda.free [Mass/Vol]31.3 mg/LFMemorial Health System Mari[facility] Hospital CtrIron [Mass/volume] in Serum or Plasmaon 90-47-8594Rynu [Mass/Vol]13 ug/dP72-303 [facility] CtrIron binding capacity [Mass/volume] in Serum or Plasmaon 71-84-8313Bcoh binding capacity [Mass/Vol]480 ug/gX450-730WofvesfrkUniversity Hospitals Lake West [facility] Center CtrIron saturation [Mass Fraction] in Serum or Plasmaon 17-95-7852Vazw saturation [Mass fraction]2.0 %20-50[facility] CtrMetabolic Panelon 19-47-4293Bmdgqdv [Mass/Vol]Not observed g/dLNot Observed [facility] CtrProtein [Mass/Vol]See commentUniversity Hospitals Lake West Medical Center CtrComment on above:Protein electrophoresis scan will follow via computer,mail, or fixed income manager delivery.Protein [Mass/Vol]<3.5 U/mLUniversity Hospitals Lake [facility] CtrMyeloperoxidase Ab [Units/volume] in Serum by Immunoassayon 42-61-9120Hffxowiznwyfwrx Ab IA Qn (S)<9.0 U/mLUniversity Hospitals [facility] Ctr Otheron 21-57-117235438991-Nnepipm Vitamin D Total19.1 ng/zQ60-578WlomqowwtUniversity Hospitals Lake West Medical Center CtrComment on above:VITAMIN D STATUS 25(OH)VITAMIN D RANGE (ng/mL) Deficient <20 Insufficient 20 to <67Dlqmdusngq55 to 100Reference: Altaf MF,Dejuan ALANIZ, Eleuterio BUSCH, et al. Evaluation,treatment, and prevention of vitamin D deficiency; an Endocrine Society clinical practice guideline. JCEM. 2010; 96(7):1911-30.Cobalamin (Vitamin B12) [Mass/Vol]294 pg/cO183-631 [facility] CtrGFR/1.73 sq M.predicted MDRD (S/P/Bld) [Vol rate/Area]36 mL/min/{1.73_m2}[facility] CtrComment on above:GFR estimated reference range: According to KDOQI guidelines, <60 ml/min/1.73m2 is sufficient todiagnose a patient with chronic kidney disease.Hepatitis C Antibody CommentSee commentUniversity Hospitals Lake West Medical Center CtrComment on above:Non reactive HCV antibody screen is consistent with no HCVinfection, unless recent infection is suspected or otherevidence exists to indicate HCV infection.Perinuclear ANCA (p-ANCA) Antibody<1:20 titerNeg:<1:20[facility] CtrComment on above:The presence of positive fluorescence exhibiting P-ANCA orC-ANCA patterns alone is not specific forthe diagnosis ofWegener's Granulomatosis (WG) or microscopic polyangiitis.Decisions about treatmentshould not be based solely onANCA IFA results. The International ANCA Group Consensusrecommends follow up testing of positive sera with both NH-3 and MPO-ANCA enzyme immunoassays. As many as 5% serumsamples are positive only by EIA. Ref. AM J Clin Wjvpil1429;111:507-513.Pharmacy Creatinine Clearance (ChemN/AFMemorial Health System [facility] CtrSerum ImmunofixationSee commentUniversity Hospitals Lake West Medical Center CtrComment on above:No monoclonality detected.Phosphate [Mass/volume] in Serum or Plasmaon 97-03-1145Svkluxmwv [Mass/Vol]3.4 mg/dL2.5-4.6FMemorial Health System Marietta Memorial Hospital Ctr Protein [Mass/volume] in Serum or Plasmaon 25-82-2889Yrbfsvs [Mass/Vol]6.6 g/dL [facility] CtrProtein [Mass/volume] in Urineon 15-88-1431Ozttolu (U) [Mass/Vol]27 mg/dL0-9[facility] CtrProtein (U) [Mass/Vol] 37.0 mg/dLNot Estab.[facility] Protein.monoclonal/Protein.total in 24 hour Urine by Electrophoresison 31-44-9591Nqqippa.monoclonal Elph (24H U) [Mass fraction]Not observed %Not ObservedUniversity Hospitals Lake West Medical Center CtrSerum classic neutrophil cytoplasmic antibody titer by immunofluorescenceon 32-90-4596Qvjcvpejlu cytoplasmic Ab.classic IF (S) [Titer]See commentNeg:<1:20[facility] Comment on above:Results are Indeterminate.Serum globulin measurement (mass/volume)on 14-10-6189Qmlkdyrr (S) [Mass/Vol]3.4 g/dLUniversity Hospitals Lake West [facility] Center CtrSerum hepatitis B virus surface antibody detectionon 00-52-8731OOT surface Ab Ql (S)Non reactiveUniversity Hospitals Lake West Medical Center CtrComment on above:Non Reactive: Inconsistent with immunity, less than 10 mIU/mL Reactive: Consistent with immunity, greater than 9.9 mIU/mLSerum homogeneous pattern antinuclear antibody (LEILA) titeron 63-09-9279Enmespsrgp nuclear Ab pattern (S) [Titer]N/A [facility] HospitalSerum nuclear antibody titeron 28-94-3177Gppljsh Ab (S) [Titer]NegativeUniversity Hospitals Lake West Medical Center CtrComment on above:Negative <1:80 Borderline 1:80 Positive >1:80Performed at: [facility] Lab[address] [id number] Director: Ilir Weiner PhD, Phone: [phone] or plasma albumin/globulin mass ratioon 08-24-2020 Albumin/Globulin [Mass ratio]0.9 {ratio}[facility] CtrSerum or plasma alpha 1 globulin measurement by electrophoresis (mass/volume)on 38-02-4886Tsial 1 globulin Elph [Mass/Vol]0.2 g/dLMercy Hospital Serum or plasma alpha 2 globulin measurement by electrophoresis (mass/volume)on 94-54-5029Ldpmb 2 globulin Elph [Mass/Vol]0.7 g/dLMercy Hospital Serum or plasma beta globulin measurement by electrophoresis (mass/volume)on 36-70-7271Tikh globulin Elph [Mass/Vol]1.2 g/dLMercy Hospital Serum or plasma calcium measurement (mass/volume)on 08-18-4320Pincqgk [Mass/Vol] 9.4 mg/dL8.2-10.2FMemorial Health System Marietta Memorial Hospital CtrSerum or plasma chloride measurement (moles/volume)on 15-96-9426Givjakdt [Moles/Vol]104 mmol/L95-114 [facility] HospitalSerum or plasma creatinine measurement with calculation of estimated glomerular filtron 61-88-3120Jefmyyxkef [Mass/Vol]2.16 mg/dL0.64-1.27Mer[facility] HospitalSerum or plasma gamma globulin measurement by electrophoresis (mass/volume)on 73-13-2755Dbqhw globulin Elph [Mass/Vol]1.3 g/dLMercy HospitalSerum or plasma glucose measurement (mass/volume)on 08-53-4944Xwkkxtg [Mass/Vol]105 mg/oZ14-433HcwjocejlMercy HospitalComment on above:ADA recommended reference rangeRandom Glucose Reference Range is dependent on time and content of last meal. Glucose of more than 200 mg/dL in a nonstressed, ambulatory subject supports the diagnosisof Diabetes Mellitus.Serum or plasma hepatitis C virus antibody signal/cutoff ratio by immunoassay (relation 53-34-2062JNG Ab Signal/Cutoff IA [Rel units/Vol]<0.1 s/co ratioMercy HospitalSerum or plasma intact parathyroid hormone measurement (mass/volume)on 08-24-2020 Parathyrin.intact [Mass/Vol]62.1 pg/tY66-75YavpmhfsvMercy HospitalSerum or plasma potassium measurement (moles/volume)on 60-62-6478Fzwhntpsa [Moles/Vol] 5.0 mmol/L3.5-5.1FCleveland Clinic FoundationSerum or plasma sodium measurement (moles/volume)on 35-58-6138Kgwjzr [Moles/Vol]137 mmol/U166-067 [facility] HospitalSerum or plasma total carbon dioxide measurement (moles/volume)on 85-55-0631SQ3 [Moles/Vol]23.4 mmol/L22.0-30.0[facility] CtrSerum or plasma urea nitrogen measurement (mass/volume)on 08-24-2020 Urea nitrogen [Mass/Vol]17 mg/dL9-23[facility] CtrSerum or plasma uric acid measurement (mass/volume)on 56-76-1733Pbddn [Mass/Vol]6.5 mg/dL 2.6-7.2FMemorial Health System Marietta Memorial Hospital CtrSpecific gravity of Urine by Automated test stripon 32-02-4680Wsjepcyd gravity (U) [Rel density]1.0211.001-1.030[facility] HospitalSquamous epithelial cells detection in urine sediment by light microscopyon 65-87-8630Joplrpztqp cells.squamous LM Ql (Urine sed)0-1 [HPF][facility] CtrUrinalysison 26-59-1523Rmhjgdd casts LM Ql (Urine sed)9-19 [LPF][facility] CtrProtein (U) [Mass/Vol]See commentUniversity Hospitals Lake West Medical Center CtrComment on above:Protein electrophoresis scan will follow via computer,mail, or fixed income manager delivery.Urine alpha 1 globulin/total protein by electrophoresison 83-70-4154Geogb 1 globulin Elph (U) [Mass fraction]3.4 %[facility] HospitalUrine alpha 2 globulin/total protein ratio by electrophoresison 20-37-5370Piumn 2 globulin Elph (U) [Mass fraction]16.4 %[facility] HospitalUrine appearanceon 08-24-2020 Appearance (U)ClearClearFCleveland Clinic FoundationUrine bacteria detection by automated methodon 59-14-1203Wkvvdsze Auto Ql (U)None seenNone SeenMercy HospitalUrine beta globulin measurement by electrophoresis (mass/volume)on 20-76-7219Ixxr globulin Elph (U) [Mass/Vol]26.8 %[facility] HospitalUrine coloron 55-41-0961Fwvhv (U)YellowYelElyria Memorial HospitalComment on above:--- 08/24/20 1716 ---Ur Color previously reported as: YellowUrine glucose measurement by automated test strip (mass/volume)on 82-47-1711Hlgunnj Auto test strip (U) [Mass/Vol]Normal mg/dL NormalUniversity Hospitals Lake West Medical Center CtrUrine hemoglobin detection by automated test stripon 21-67-7929Uphmrlmqgr Auto test strip Ql (U)NegativeNegativeUniversity Hospitals Lake West Medical Center CtrUrine ketones measurement by automated test strip (mass/volume)on 29-46-9823Jbjzrdz (U) [Mass/Vol]TraceNegativeUniversity Hospitals Lake West Medical Center CtrUrine leukocyte esterase detection by automated test stripon 99-22-4983Kszgcpdxy esterase Auto test strip Ql (U)1+NegativeUniversity Hospitals Lake West Medical Center CtrUrine nitrite detection by test stripon 04-95-7408Gsngexy Ql (U) NegativeNegativeUniversity Hospitals Lake West Medical Center CtrUrine pH measurement by automated test stripon 84-43-7543rY (U)5.5 [pH]5.0-9.0[facility] CtrUrine protein measurement by automated test strip (mass/volume)on 57-28-1407Ippvvdg (U) [Mass/Vol]Trace mg/dLNegLutheran Hospital CtrUrine protein/creatinine ratioon 53-20-2511Lymxxng/Creatinine (U) [Ratio]78 mg/g{Cre} 0-200[facility] CtrUrine total bilirubin detection by test strip on 77-46-4616Bmiphdjbn Ql (U)NegativeNegLutheran Hospital CtrUrine urobilinogen measurement by automated test strip (mass/volume)on 08-24-2020 Urobilinogen (U) [Mass/Vol]Normal mg/dLNormalUniversity Hospitals Lake West [facility] Center Ctr Cardiovascular Lab Reporton 32-61-7447Hihomstdywiwqv Lab ReportUnMain Campus Medical Center Patient Name: Ayad De La Rosa [facility] MR #: [id number] Physician: Zoey Shay,Department of M.D.Medicine Service Date: 01/16/2018Division of Birthdate: 6Cardiology Room #: CCAdult CardiovascularServices[address] [address]Kydwj Fax Cardiovascular Laboratory ReportCLINICAL PRESENTATION:1. Mr. Ayad De La Rosa is a 72-year-old male with past medical history significant for atrial fibrillation, systolic congestive heart failure and chronic kidney disease stage 3. The patient was evaluated bymy colleague, Dr. Bowers, and diagnosed with acute systolic congestive heart failure. He is referred for coronary angiogram and right heart catheterization. His echocardiogram shows an EF of 21%.FINAL IMPRESSION:1. Right heart catheterization demonstrates severely elevated pulmonary capillary wedge pressure with a mean wedge pressure of 30 mmHg. This is consistent with decompensated congestive heart failure.2. The Cayla cardiac output is 4.4 L/minute and the Cayla cardiac index is 2.14 L/minuteper meter squared. These are low-normal.3. Coronary angiogram reveals mild coronary artery disease,appropriate for medical therapy.PLAN:1. The patient is already taking carvedilol 3.125 mg twice daily for systolic congestive heart failure. Based on the findings of the right heart catheterization, I have added Lasix 20 mg twice daily and lisinopril 5 mg daily. He will get repeat labs within one week and follow up with Dr. Bowers within 1-2 weeks. Consider addition of spironolactone as well.2.Okay to resume Eliquis 5 mg twice daily. He is on Eliquis anticoagulation for atrial fibrillation and prevention of stroke.3. He had minimal coronary artery disease. Aspirin and statin would be appropriate medical therapy for CAD.PROCEDURES: Right heart catheterization, coronary angiogram, ultrasoundguidance for vascular access, conscious sedation 42 minutes.INDICATION: Acute systolic congestive heart failure, atrial fibrillation.DESCRIPTION OF PROCEDURE: The patient was brought to cardiaccathet erization lab in a fasting state. Informed written consent wasobtained. He was prepped and draped usual sterile fashion over right neckand right wrist. Time- out was performed. He was given Versed andfentanylfor sedation, 1% lidocaine was infiltrated over the right internal jugularvein. Using ultrasound guidance and micropuncture access technique, a6-Bahraini sheath placed in right internal jugularvein. Next, the Bermancatheter was advanced under fluoroscopic and hemodynamic monitoring to theright atrium. Pressures obtained in the right atrium, right ventricle,pulmonary artery, and pulmonary capillary wedge position. Oxygensaturation was then drawn from the pulmonary artery and the Cayla cardiacoutput and cardiac index were then calculated. The De La Garza catheter wasthen removed.Next, coronaryangiogram was performed. The area over the right radialartery was anesthetized with 1% lidocaine. A6-Bahraini Terumo Glidesheathslender was placed in the radial artery. The anti-vasospasm cocktail ofverapamil 2.5 mg and nitroglycerin 200 mcg was administered through theright radial arterial sheath. All catheter exchanges were made over theRosen guidewire. Initially, a 5-Bahraini [place] catheter was used to engagethe left main coronary artery. Next, a JR4 catheter was used to engage theright coronary artery. Coronary angiography was performed in multipleorthogonal views using hand injection of contrast.At this point, the procedure was completed. All catheters and wiresremoved from the body. The radial sheath was removed. Anterior band wasapplied to obtain hemostasis. The right internal jugularvenous sheath wasremoved, the manual pressure was applied to obtain hemostasis. There wereno apparent complications.TOTAL CONTRAST: 50 mL.TOTAL CONSCIOUS SEDATION TIME: 42 minutes.TOTAL FLUOROSCOPY TIME: 7 minutes and 5 seconds, 0.7 Gy.FINDINGS: Hemodynamics:1. RA mean 15.2. RV 56/15.3. PA 58/22 (mean 36).4. Pulmonary capillary wedge pressure mean 30 mmHg (severely elevated).5. AO 114/73 (MAP 93).6. Cayla cardiac output 4.4 L/minute.7. Cayla cardiac index 2.14 L/minute per meter squared.8. Oxygensaturations PA sat is 64%.9. AO sat is 91%.CORONARY ANGIOGRAM:1. Left main coronary artery: Patent.2. Left anterior descending coronary artery: The LAD is a moderate-sized vessel and has a 30% stenosis in its mid segment. The diagonal branches are patent.3. Left circumflex coronary artery: Circumflex is a large vessel and is dominant. The proximal circumflex has 30% stenosis. The obtuse marginal branches are widely patent.4. Right coronary artery: The RCA is a small vessel and is nondominant and is patent.Electronically Signed by:Zoey Shay M.D. 01/31/2018 04:47 P Zoey Shay M.D.Date Dict: 01/16/2018/12:09 P/Zoey Shay M.D.Date Trans: 01/16/201811:26 P/mmoDN_JN:[id number]: Paulina Tyson M.D. [facility] [address] [facility], [facility] [id number] Bernard Bowers M.D. [address] [facility] [address]JkwfohYkeSelect Medical [facility] [place] Vital Signs Date TimeVital SignValuePerforming MiysrnfsiSwvhpjud28-96-2353 10:19-0400Body .18 cmPaulina Tyson MD Work Phone: 1(375)[address]10-21-2025 10:19-0400 Body mass index (BMI) [Ratio]31.1 kg/h5TadfcvjPaulina Tyson MD Work Phone: 1(086)43053 [address]10-21-2025 10:19-0400 Body .26 kgDohilary Tyson MD Work Phone: 1(851)21953 [address]10-21-2025 10:19-0400 Diastolic blood cuknrita24 mm[Hg]Paulina Tyson MD Work Phone: 1(396)[address]10-21-2025 10:19-0400 Heart rate66 /Dick Tyson MD Work Phone: 1(168)30[address]10-21-2025 10:19-0400 Respiratory rate18 /Dick Tyson MD Work Phone: 1(905)80553 [address]10-21-2025 10:19-0400 SaO2% (BldA) [Mass fraction]96 %Paulina Tyson MD Work Phone: 1(157)98353 [address]10-21-2025 10:19-0400 Systolic blood xsisdpap674 mm[Hg]Paulina Tyson MD Work Phone: 1(880)[address]09-29-2025 16:37-0400 Diastolic blood cxjakdqf98 mm[Hg]Viki Cooney MD Work Phone: [facility]09-29-2025 16:37-0400 Systolic blood ykmivcka79 mm[Hg]Viki Cooney MD Work Phone: 1(277)41460 [address]09-29-2025 16:07-0400 Body jkmfat568.2 cmViki Cooney MD Work Phone: 1(961)41460 [address]09-29-2025 16:07-0400 Body mass index (BMI) [Ratio]31.01 kg/z9FtsofzViki Cooney MD Work Phone: 1(118)41460 [address]09-29-2025 16:07-0400 Body .81 kgViki Cooney MD Work Phone: 1(689)41460 [address]09-29-2025 16:07-0400 Heart rate76 /minViki Cooney MD Work Phone: 1(479)41460 [address]02-24-2025 13:29-0500 Body boxypk749.2 cmViki Cooney MD Work Phone: 1(063)414[address]02-24-2025 13:29-0500 Body mass index (BMI) [Ratio]30.7 kg/s8WhjmrfViki Cooney MD Work Phone: 1(505)414[address]02-24-2025 13:29-0500 Body vxpsri81.91 kgViki Cooney MD Work Phone: 1(244)41460 [address]02-24-2025 13:29-0500 Diastolic blood qashjdlb01 mm[Hg]Viki Cooney MD Work Phone: 1(954)41460 [address]02-24-2025 13:29-0500 Heart rate60 /minViki Cooney MD Work Phone: 1(261)41460 [address]02-24-2025 13:29-0500 Systolic blood guidkxgk313 mm[Hg]Viki Cooney MD Work Phone: 1(775)414[address]12-09-2024 10:40-0500 Body krilqo842.2 Howard DISLA Work Phone: [place] [address]Ugutgncrcp27-04-6750 10:40-0500Body mass index (BMI) [Ratio]31.01 kg/j0Yfprxy Lowe PA Work Phone: [facility] HospitalRgfwrhtuig65-18-4989 10:40-0500Body xaehug50.81 kgAngela Lowe PA Work Phone: [facility] HospitalOhkdlkngov61-77-6982 10:40-0500Diastolic blood qzqjzixl26 mm[Hg]Jess Lowe PA Work Phone: 1(002)328-[facility] HospitalNlraumbceq10-37-9567 10:40-0500Systolic blood cbqimksr107 mm[Hg]Jess Lowe PA Work Phone: 1(314)196-[address] [place], [place] [address]Mzajnqywnh11-32-4265 13:17-0500Body zlkkax847.6 cmViki Cooney MD Work Phone: 1(321)[address]60 [address]11-25-2024 13:17-0500 Body mass index (BMI) [Ratio]31.41 kg/q1XkaftoViki Cooney MD Work Phone: 1(052)[address]11-25-2024 13:17-0500 Body vswjyc97.27 kgViki Cooney MD Work Phone: 1(332)69560 [address]11-25-2024 13:17-0500 Diastolic blood tattirpu03 mm[Hg]Viki Cooney MD Work Phone: 1(475)99960 [address]11-25-2024 13:17-0500 Heart rate62 /minViki Cooney MD Work Phone: 4(161)41460 [address]11-25-2024 13:17-0500 Systolic blood srjbjdze697 mm[Hg]Viki Cooney MD Work Phone: 3(149)013[address]11-04-2024 14:00-0500 Blood Pressure LocationRonobir XU [facility]11-04-2024 14:00-0500Body znubcxbwuyq92.7 [degF]Ronobir XU [address] [place], [place] 9392111-04-2024 14:00-0500Heart rate75 /minRonobir XU [address] [place], [place] 9392111-04-2024 14:00-0500Mean blood xocddbyi89 mm[Hg]Ronobir XU [address] [place], [place] 9392111-04-2024 14:00-0500 Respiratory rate18 /minRonobir XU [address] [place], [place] 9392111-04-2024 14:00-2204JkW1% (BldA) [Mass fraction]94 %Ronobir XU [address] [place], [place] 9392111-04-2024 10:54-0500Heart rate74 /minRonobir XU [address] [place], [place] 3676811-04-2024 10:54-2495UkO2% (BldA) [Mass fraction]97 %Ronobir XU [address] [place], [place] 9392111-04-2024 10:50-0500Body pxohfsrkenr03.88 [degF]Ronobir XU [address] [place], [place] 3676811-04-2024 10:50-0500 Diastolic blood btzaajiz11 mm[Hg]Ronobir XU [address] [place], [place] 3676811-04-2024 10:50-0500Mean blood xuznfekl68 mm[Hg]Ronobir XU [address] [place], [place] 3676811-04-2024 10:50-0500 Systolic blood mm[Hg]Ronobir XU [address] [place], [place] 3676811-04-2024 10:10-0500 Diastolic blood amllddji17 mm[Hg]Ronobir XU [address] [place], [place] 9392111-04-2024 10:10-0500 Systolic blood ouyvmkck693 mm[Hg]Ronobir XU [address]11-04-2024 09:36-0500 Hourly RoundingRonobir XU [address] [place], [place] 3676811-04-2024 09:36-0500 Promise to ReturnRonobir XU [address] [place], [place] 3676811-04-2024 08:36-0500 Hourly RoundingRonobir XU [address] [place], [place] 9392111-04-2024 08:36-0500 Promise to ReturnRonobir XU [address] [place], [place] 9392111-04-2024 07:45-0500Heart rate72 /minRonobir XU [address] [place], [place] 9392111-04-2024 07:45-0435SmW9% (BldA) [Mass fraction]92 %Ronobir XU [address] [place], [place] 3676811-04-2024 07:44-0500 Diastolic blood uwoflnit89 mm[Hg]Ronobir XU [address] [place], [place] 3676811-04-2024 07:44-0500Mean blood vewxhtik27 mm[Hg]Ronobir XU [address] [place], [place] 3676811-04-2024 07:44-0500 Systolic blood domtkqol80 mm[Hg]Ronobir XU [address] [place], [place] 3676811-04-2024 07:43-0500Body iuuvshislgy63.88 [degF]Ronobir XU [address] [place], [place] 3676811-04-2024 07:34-0500 Hourly RoundingRonobir XU [address] [place], [place] 3676811-04-2024 07:34-0500 Promise to ReturnRonobir XU [address] [place], [place] 3676811-03-2024 19:30-0500Heart rate80 /minRonobir XU [address] [place], [place] 3676811-03-2024 19:30-0500Mean blood gxjblxpu91 mm[Hg]Ronobir XU [address] [place], [place] 3676811-03-2024 19:30-0500 Respiratory rate18 /minRonobir XU [address] [place], [place] 3676811-03-2024 19:22-0500Heart rate80 /minRonobir XU [address] [place], [place] 3676811-03-2024 19:21-0500Mean blood qboqvdau54 mm[Hg]Ronobir XU [address] [place], [place] 3676811-03-2024 19:21-0500Body uxvhkxotihc00.24 [degF]Ronobir XU [address] [place], [place] 3676811-03-2024 17:07-0500Heart rate67 /minRonobir XU [address] [place], [place] 3676811-03-2024 17:07-0500Mean blood kxlynjbm16 mm[Hg]Ronobir XU [address] [place], [place] 3676811-03-2024 17:07-0500 Respiratory rate18 /minRonobir XU [address] [place], [place] 3676811-03-2024 16:00-0500Blood Pressure LocationRonobir XU [address] [place], [place] 3676811-03-2024 16:00-0500Body jsybkgqolco99.42 [degF]Ronobir XU [address] [place], [place] 3676811-03-2024 02:00-0500Body hdikawhdkqk63.16 [degF]Ronobir XU [address] [place], [place] 3676810-31-2024 00:03-0400 Respiratory rate15 /minRonobir XU [address]10-30-2024 23:21-0400 Respiratory rate16 /minRonobir XU [address] [place], [place] 3676810-30-2024 22:09-0400 Respiratory rate11 /minRonobir XU [address] [place] 9392110-30-2024 21:37-0400gluc 133 mg/dLRonobir XU [address] [place], [place] 3676810-30-2024 21:07-0400gluc 133 mg/dLRonobir XU [address] [place], [place] 9392110-29-2024 08:04-0400Body mtylwb855.18 cmMD Paulina Hoy Work Phone: 1(944)783-[address] [place], [place] 3791810-29-2024 08:04-0400 Body mass index (BMI) [Ratio]30.9 kg/m2MD Paulina Hoy Work Phone: [facility]10-29-2024 08:04-0400 Body fkazjhkebqo24 [degF]MD Paulina Tyson Work Phone: [facility]10-29-2024 08:04-0400 Body udtidy88.58 kgMD Paulina Hoy Work Phone: [facility]10-29-2024 08:04-0400 Diastolic blood bhouwivi23 mm[Hg]MD Paulina Tyson Work Phone: [facility]10-29-2024 08:04-0400 Heart rate79 /minMD Paulina Hoy Work Phone: [facility]10-29-2024 08:04-0400 Respiratory rate16 /minMD Paulina Hoy Work Phone: [facility]10-29-2024 08:04-0400 SaO2% (BldA) [Mass fraction]96 %MD Paulina Tyson Work Phone: [facility]10-29-2024 08:04-0400 Systolic blood sjnpotqg471 mm[Hg]MD Paulina Tyson Work Phone: [facility]07-15-2024 12:51-0400 Diastolic blood mlcrsvri34 mm[Hg]Viki Cooney MD Work Phone: 1(195)[address]07-15-2024 12:51-0400 Systolic blood pkwduysl195 mm[Hg]Viki Cooney MD Work Phone: 1(615)157-[address] [place], [place] 1565507-15-2024 12:30-0400 Body mass index (BMI) [Ratio]31.51 kg/l1AqlgkpViki Cooney MD Work Phone: 8(857)246-[address] [place], [place] 1565507-15-2024 12:30-0400 Body vtvapr33.54 kgViki Cooney MD Work Phone: 5(998)509-[address] [place], [place] 1565507-15-2024 12:30-0400 Heart rate70 /minViki Cooney MD Work Phone: 7(631)000-[address] [place], [place] 1565506-21-2024 20:38-0400 Body oqseydwolqe55.5 [degF]Adebayo Santiago MD Work Phone: [facility]06-21-2024 20:38-0400 Diastolic blood mm[Hg]Adebayo Santiago MD Work Phone: [facility]06-21-2024 20:38-0400 Heart rate50 /Blessing Santiago MD Work Phone: [facility]06-21-2024 20:38-0400 Respiratory rate14 /Blessing Santiago MD Work Phone: [facility]06-21-2024 20:38-0400 SaO2% (BldA) [Mass fraction]95 %Adebayo Santiago MD Work Phone: 1()0-[address] [place], [place] 6566806-21-2024 20:38-0400 Systolic blood hxnyqily327 mm[Hg]Adebayo Santiago MD Work Phone: 1()[address] [place], [place] 5703806-21-2024 17:17-0400 Body oxjzxt078.6 Rool Santiago MD Work Phone: 1()[address] [place], [place] 5703806-21-2024 17:17-0400 Body mass index (BMI) [Ratio]29.86 kg/w7KzkxzcAdebayo Santiago MD Work Phone: 1()[address] [place], [place] 5703806-21-2024 17:17-0400 Body .92 kgAdebayo Santiago MD Work Phone: 1()[address] [place], [place] 5703805-08-2024 14:43-0400 Body .6 Rolo Santiago MD Work Phone: 1()[address] [place], [place] 5703805-08-2024 14:43-0400 Body mass index (BMI) [Ratio]31.15 kg/a1UpuednAdebayo Santiago MD Work Phone: 1()[address] [place], [place] 5703805-08-2024 14:43-0400 Body bsmnlqbceqp87.3 [degF]Adebayo Santiago MD Work Phone: 1()[address] [place], [place] 5703805-08-2024 14:43-0400 Body ihakhq59.54 kgAdebayo Santiago MD Work Phone: 1()[address] [place], [place] 5703805-08-2024 14:43-0400 Diastolic blood elwyhmek15 mm[Hg]Adebayo Santiago MD Work Phone: 1()[address] [place], [place] 5703805-08-2024 14:43-0400 Heart rate76 /minSkarley Santiago MD Work Phone: 1()[address] [place], [place] 5703805-08-2024 14:43-0400 SaO2% (BldA) [Mass fraction]95 %Adebayo Santiago MD Work Phone: [facility]05-08-2024 14:43-0400 Systolic blood jfklyjik749 mm[Hg]Adebayo Santiago MD Work Phone: [facility]04-15-2024 13:15-0400 Diastolic blood rbzlgiyv81 mm[Hg]Viki Cooney MD Work Phone: [facility]04-15-2024 13:15-0400 Heart rate72 /minViki Cooney MD Work Phone: 1(843)142-43[facility]04-15-2024 13:15-0400 Systolic blood oacrkldr63 mm[Hg]Viki Cooney MD Work Phone: 1(506)103-[address] [place], [place] 1565504-15-2024 13:01-0400 Body tvlcmu198.2 cmViki Cooney MD Work Phone: 7(545)445-87[facility]04-15-2024 13:01-0400 Body mass index (BMI) [Ratio]30.7 kg/k8IwdibtViki Cooney MD Work Phone: 0(606)447-77[facility]04-15-2024 13:01-0400 Body gksixi21.91 kgViki Cooney MD Work Phone: 7(387)451-51[facility]04-15-2024 11:24-0400 Body .18 cmMD Paulina Tyson Work Phone: [facility]04-15-2024 11:24-0400 Body mass index (BMI) [Ratio]30.5 kg/m2MD Paulina Tyson Work Phone: 1(809)210[facility]04-15-2024 11:24-0400 Body oyeedraeztw43 [degF]MD Paulina Tyson Work Phone: [facility]04-15-2024 11:24-0400 Body uepswe25.45 kgMD Paulina Tyson Work Phone: [facility]04-15-2024 11:24-0400 Diastolic blood plvyexak15 mm[Hg]MD Paulina Tyson Work Phone: [facility]04-15-2024 11:24-0400 Heart rate67 /minMD Paulina Tyson Work Phone: [facility]04-15-2024 11:24-0400 Respiratory rate18 /minMD Paulina Tyson Work Phone: [facility]04-15-2024 11:24-0400 SaO2% (BldA) [Mass fraction]93 %MD Paulina Tyson Work Phone: [facility]04-15-2024 11:24-0400 Systolic blood swjwupvz026 mm[Hg]MD Paulina Tyson Work Phone: [facility]02-19-2024 13:00-0500 Diastolic blood olvxmuud38 mm[Hg]Jamel MARTINEZ [facility]02-19-2024 13:00-0500Heart rate55 /minMichael NILL [facility]02-19-2024 13:00-0500 Respiratory rate20 /minMichael NILL [facility]02-19-2024 13:00-0500 Systolic blood aiyjiaxv137 mm[Hg]Jamel NILL [facility]02-19-2024 11:24-0500Heart rate41 /minMichael NILL [facility]02-19-2024 11:24-4428SdH0% (BldA) [Mass fraction]95 %Jamel NILL [facility]02-19-2024 11:23-0500 Diastolic blood pcyiovks73 mm[Hg]Jamel NILL [facility]02-19-2024 11:23-0500Mean blood tmsmdobd52 mm[Hg]Jamel NILL [facility]02-19-2024 11:23-0500 Systolic blood eejmgttr516 mm[Hg]Jamel NILL [facility]02-19-2024 11:15-0500Blood Pressure LocationMichael NILL [facility]02-19-2024 11:15-0500Body xjwipovhcxb95.88 [degF]Jamel NILL [facility]02-19-2024 11:15-0500 Diastolic blood elryhamx63 mm[Hg]Jamel NILL [facility]02-19-2024 11:15-0500Heart rate50 /minMichael NILL [facility]02-19-2024 11:15-0500Mean blood wiktlrbe48 mm[Hg]Jamel NILL [facility]02-19-2024 11:15-0500 Respiratory rate14 /minMichael NILL [facility]02-19-2024 11:15-7293JhC1% (BldA) [Mass fraction]93 %Jamel NILL [facility]02-19-2024 11:15-0500 Systolic blood sgtnwayd923 mm[Hg]Jamel NILL [facility]02-19-2024 11:05-0500Blood Pressure LocationMichael NILL [facility]02-19-2024 11:05-0500Mean blood bcgqauno42 mm[Hg]Jamel NILL [facility]02-19-2024 11:05-0500 Respiratory rate17 /minMichael NILL [facility]02-19-2024 11:00-0500Mean blood gowjsvib95 mm[Hg]Jamel MENDOZAL [facility]02-19-2024 10:45-0500Body tudqtthadwv17.06 [degF]Jamel MENDOZAL [facility]02-19-2024 07:09-0500Mean blood mm[Hg]Jamel MENDOZAL [facility]02-19-2024 07:08-0500 Respiratory rate18 /minJamel MENDOZAL [facility]02-19-2024 07:07-0500Mean blood snwzadzt89 mm[Hg]Jamel MENDOZAL [facility]02-19-2024 07:07-0500Body dbqordyxgby25.7 [degF]Jamel MARTINEZ [facility]02-07-2024 13:24-0500Body mbojwk038.2 cmAsya Mendoza INVENTORY AUDITOR-[employer]ISH [employer]POSITION INSTRUCTOR Work Phone: [facility]02-07-2024 13:24-0500 Body mass index (BMI) [Ratio]30.54 kg/y3FibboAsya Mendoza INVENTORY AUDITOR-[employer]POSITION INSTRUCTOR Work Phone: [facility]02-07-2024 13:24-0500 Body jguquy82.45 kgAsya Mendoza INVENTORY AUDITOR-[employer]POSITION INSTRUCTOR Work Phone: [facility]02-07-2024 13:24-0500 Diastolic blood ckzboemu67 mm[Hg]Asya Mendoza INVENTORY AUDITOR-[employer]ISH COMPOSITION INSTRUCTOR Work Phone: [facility]02-07-2024 13:24-0500 Heart rate69 /minDadelina Mendoza INVENTORY AUDITOR-[employer]ISH COMPOSITION INSTRUCTOR Work Phone: [facility]02-07-2024 13:24-0500 Systolic blood pwbbkoxk292 mm[Hg]Asya Mendoza INVENTORY AUDITOR-[employer]POSITION INSTRUCTOR Work Phone: [facility]01-11-2024 10:44-0500 Blood Pressure LocationMichael NILL [phone]-SrzrsTri[facility] [place] 08-31-2023 10:44-0500Diastolic blood ccqygiic55 mm[Hg]Jamel MENDOZAL [phone]-BjoriTrihealth [facility]ccull[facility] [place] 08-31-2023 10:44-0500Heart rate70 /minMichael NILL [phone]-[facility]fF[facility] [place] 08-31-2023 10:44-0500Respiratory rate16 /minMichael NILL [phone]-RmdsiFulton County Health Center [facility] [place] 08-31-2023 10:44-0500Systolic blood fmqwaahf436 mm[Hg]Jamel NILL [phone]-WjrfiFulton County Health Center [facility] [place] 07-21-2023 10:10-0500Diastolic blood gpiuejhx77 mm[Hg]Jamel MENDOZAL [facility]12-01-2023 10:10-0500Heart rate59 /minMichael NILL [facility]12-01-2023 10:10-0500 Respiratory rate16 /minMichael NILL [facility]12-01-2023 10:10-9372IcX2% (BldA) [Mass fraction]95 %Jamel NILL [facility]12-01-2023 10:10-0500 Systolic blood gojeipum920 mm[Hg]Jamel MENDOZAL [facility]12-01-2023 09:55-0500 Diastolic blood beojxcps09 mm[Hg]Jamel MENDOZAL [facility]12-01-2023 09:55-0500Heart rate65 /minMichael NILL [facility]12-01-2023 09:55-0500 Respiratory rate20 /minMichael NILL [facility]12-01-2023 09:55-4637TeY2% (BldA) [Mass fraction]93 %Jamel NILL [facility]12-01-2023 09:55-0500 Systolic blood qvdikist277 mm[Hg]Jamel NILL [facility]12-01-2023 09:40-0500 Diastolic blood vdlileck17 mm[Hg]Jamel NILL [facility]12-01-2023 09:40-0500Heart rate67 /minMichael NILL [facility]12-01-2023 09:40-0500 Respiratory rate18 /minMichael NILL [facility]12-01-2023 09:40-9145NnB5% (BldA) [Mass fraction]95 %Jamel NILL [facility]12-01-2023 09:40-0500 Systolic blood nsglyowa216 mm[Hg]Jamel NILL [facility]12-01-2023 09:15-0500Body wihduumynci75.06 [degF]Jamel NILL [facility]12-01-2023 08:49-0500 Respiratory rate12 /minMichael NILL [facility]12-01-2023 08:35-0500Blood Pressure LocationMichael NILL [facility]12-01-2023 08:35-0500Body ygyubedktdn34.34 [degF]Jamel NILL [facility]11-15-2023 14:48-0500Blood Pressure LocationMichael NILL [facility] [place]68-72-4868 14:48-0500Diastolic blood wroziwgm04 mm[Hg]Jamel NILL [facility]11-15-2023 14:48-0500Heart rate 76 /minMichael NILL [facility]11-15-2023 14:48-0500 Respiratory rate16 /minMichael NILL [facility]11-15-2023 14:48-0500Systolic blood wgppvytd221 mm[Hg]Jamel NILL [facility]10-05-2023 12:25-0400Diastolic blood yxfylwsh88 mm[Hg]Viki Cooney MD Work Phone: [facility]10-05-2023 12:25-0400 Heart rate58 /minViki Cooney MD Work Phone: 7(034)394-20[facility]10-05-2023 12:25-0400 Systolic blood uikgeark653 mm[Hg]Viki Cooney MD Work Phone: 5(231)824-14[facility]10-05-2023 11:49-0400 Body qtdovs787.2 cmViki Cooney MD Work Phone: 0(301)089-[address] [place], [place] 1565510-05-2023 11:49-0400 Body mass index (BMI) [Ratio]30.89 kg/z6NausrlViki Cooney MD Work Phone: [facility]10-05-2023 11:49-0400 Body iawuqm59.45 kgViki Cooney MD Work Phone: [facility]06-19-2023 10:51-0400 Body eovbul396.18 cmDouglas M Hoy Work Phone: 1(084)[phone]-Uqbuk [facility] [address] DO Work Phone: 1(947)014-371-492714-66 10:51-0400Body mass index (BMI) [Ratio] 30.38 kg/o7Dhmxxon M Hoy Work Phone: 1(358)[phone]-Fqhtl [facility] [address] DO Work Phone: 1(826)601-382-957747-01 10:51-0400Body surface area Derived from formula2 d3Rlbnvkc M Hoy Work Phone: [phone]-Evwsx [facility] [address] DO Work Phone: [phone] 10:51-0400Body rnhxav74 kgDouglas M Hoy Work Phone: [phone]-Vfdib [facility] [address] DO Work Phone: 1([phone] 10:51-0400Diastolic blood ovherghs06 mm[Hg] Paulina M Hoy Work Phone: [phone]-Omfal [facility] [address] DO Work Phone: [phone] 10:51-0400Heart rate64 /minDouglas M Hoy Work Phone: [phone]-Owqwy [facility] [address] DO Work Phone: [phone] 10:51-0400Systolic blood mxqowqww240 mm[Hg] Paulina M Hoy Work Phone: [phone]-[facility] DO Work Phone: [phone] 10:51-0400Systolic blood uifsicqi405 mm[Hg] Paulina M Hoy Work Phone: [phone]-Utjgx [facility] [address] DO Work Phone: [phone] 09:36-0400Diastolic blood xbvwettr89 mm[Hg] Paulina M Hoy Work Phone: [phone]-Prdmc [facility] [address] DO Work Phone: [phone] 09:36-0400Systolic blood wydpwnow336 mm[Hg] Paulina M Hoy Work Phone: [phone]-Cvwej [facility] DO Work Phone: [phone] 09:34-0400Body blersy281.18 cmDougterence Suazo Hoy Work Phone: [phone]-Isnex [facility] DO Work Phone: [phone] 09:34-0400Body mass index (BMI) [Ratio] 30.38 kg/g5Mvhhxbd M Hoy Work Phone: [phone]-Rmytd [facility] DO Work Phone: [phone] 09:34-0400Body surface area Derived from formula2 q0Opjlvnf M Hoy Work Phone: [phone]-Tlubn [facility] DO Work Phone: [phone] 09:34-0400Body xjcymv32 kgDohilary Suazo Hoy Work Phone: [phone]-Eiicm [facility] DO Work Phone: [phone] 09:34-0400Diastolic blood ipfypajn05 mm[Hg] Paulina M Hoy Work Phone: [phone]-Rasyz [facility] DO Work Phone: [phone] 09:34-0400Heart rate67 /minDouglas M Hoy Work Phone: [phone]-Vdrfc [facility] 250 DO Work Phone: [phone] 09:34-0400Systolic blood cilojseg348 mm[Hg] Paulina M Hoy Work Phone: [phone]-Autqp [facility] 250 DO Work Phone: 1(330) [phone] 00:00-392739 1Douglas M Hoy Work Phone: 1(987)[phone]-Twcoq [facility] 250 DO Work Phone: Comment on above:[id number] 13:42-0400 Diastolic blood cjmyaagi73 mm[Hg]Paulina M Hoy Work Phone: [phone]-Uzvqj [facility] DO Work Phone: 1(776) [phone] 13:42-0400Diastolic blood ffrqbupi87 mm[Hg] Paulina M Hoy Work Phone: [phone]-Mirwy [facility] DO Work Phone: 1(942) 158-136904-10-2023 13:42-0400Systolic blood mafmfnrd163 mm[Hg] Paulina M Hoy Work Phone: [phone]-Bvwxc [facility] 250 DO Work Phone: 1(451) [phone] 13:42-0400Systolic blood vmwoahte227 mm[Hg] Paulina M Hoy Work Phone: [phone]-Ebwzf [facility] DO Work Phone: 1(478) 119-699304-10-2023 12:58-0400Body jwqicy016.18 cmDouglas M Hoy Work Phone: [phone]-Yplfp [facility] DO Work Phone: 1(759) 471-297104-10-2023 12:58-0400Body mass index (BMI) [Ratio] 30.23 kg/a0Asppizk M Hoy Work Phone: [phone]-Khgwe [facility] 250 DO Work Phone: 1(215) [phone] 12:58-0400Body surface area Derived from formula1.99 h3Kdlrotj M Hoy Work Phone: [phone])[phone]-Zvgxm [facility] 250 DO Work Phone: 1(495) 118-533704-10-2023 12:58-0400Body sdyfro89.54 kgDouglas M Hoy Work Phone: [phone]-Nwarf [facility] DO Work Phone: 1(273) [phone] 12:58-0400Diastolic blood etcnruai42 mm[Hg] Paulina M Hoy Work Phone: [phone]-Zlukm [facility] DO Work Phone: 1(239) 121-434604-10-2023 12:58-0400Heart rate59 /minDouglas M Hoy Work Phone: [phone]-Qploi [facility] 250 DO Work Phone: 1(718) 377-195504-10-2023 12:58-0400Systolic blood vkmgymys561 mm[Hg] Paulina Taniya Hoy Work Phone: 1([phone]-Dapnf [place] [facility] 250 DO Work Phone: 1(431) 558-536703-13-2023 11:20-0400Body sagtaj228.18 cmAbdul Maximiliano Other [place] [employer] Other 03-13-2023 11:20-0400Body mass index (BMI) [Ratio] 30.48 kg/g6Xjpxz Maximiliano Other [place] [employer] Other 03-13-2023 11:20-0400Body hailmrzuooh54.1 [degF]Chad Maximiliano Other [place] [employer] Other 03-13-2023 11:20-0400Body .27 kgAbdul Maximiliano Other [employer] Other 03-13-2023 11:20-0400Diastolic blood mm[Hg] Chad Maximiliano Other [employer] Other 03-13-2023 11:20-0400Respiratory rate16 /minAbdul Maximiliano Other [employer] [place] [employer] Other 03-13-2023 11:20-7319ZeP5% (BldA) [Mass fraction]94 % Chad Maximiliano Other [employer] [place] [employer] Other 03-13-2023 11:20-0400Systolic blood mm[Hg] Chad Maximiliano Other [employer] [place] [employer] Other 12-01-2022 08:00-440337 1Douglas Taniya Hoy Work Phone: 1([phone]-Ewwhk [place] [facility] Work Phone: Comment on above:[id number] 13:16-0400Body pbiplh673.18 cmDougterence Suazo Hoy Work Phone: [phone]-Blbtt [facility] 250 DO Work Phone: 1(904) 226-660510-05-2022 13:16-0400Body mass index (BMI) [Ratio] 30.07 kg/p2Umcqidi M Hoy Work Phone: [phone]-Anwyw [facility] 250 DO Work Phone: 1(771) 249-966010-05-2022 13:16-0400Body surface area Derived from formula1.99 q5Lncabyn M Hoy Work Phone: [phone]-Tvghu [facility] DO Work Phone: 1(868) 436-232810-05-2022 13:16-0400Body .09 kgDouglas Taniya Hoy Work Phone: [phone])[phone]-Hypon [facility] 250 DO Work Phone: 1(911) 618-352910-05-2022 13:16-0400Diastolic blood bgnuxnpq50 mm[Hg] Paulina Taniya Hoy Work Phone: 1([phone]-Wbzmv [facility] DO Work Phone: 1(608) [phone] 13:16-0400Heart rate56 /minDouglas Taniya Hoy Work Phone: 1(412) [phone]-Raugy [place] [facility] 250 DO Work Phone: 1(361) 301-705110-05-2022 13:16-0400Systolic blood eitbtrrk151 mm[Hg] Paulina Taniya Hovick Work Phone: 1(809) [phone]-Vtqrp [place] [facility] 250 DO Work Phone: 1(164) 352-619103-29-2022 11:00-0400Body .18 cmAbdul Maximiliano Other [employer] Other 03-29-2022 11:00-0400Body mass index (BMI) [Ratio] 30.29 kg/b4Xfcrk Maximiliano Other [employer] Other 03-29-2022 11:00-0400Body ahqoscweylc89.1 [degF]Chad Maximiliano Other [employer] Other 03-29-2022 11:00-0400Body nxntic73.73 kgAbdul Maximiliano Other [employer] Other 03-29-2022 11:00-0400Diastolic blood etfggdje60 mm[Hg] Chad Maximiliano Other [employer] Other 03-29-2022 11:00-0400Respiratory rate18 /minAbdul Maximiliano Other [employer] Other 03-29-2022 11:00-6032ZhK4% (BldA) [Mass fraction]93 % Chad Maximiliano Other [employer] Other 03-29-2022 11:00-0400Systolic blood yzyzblju288 mm[Hg] Chad Boldenr Other [place] [employer] Other 03-14-2022 11:08-0400Diastolic blood fxnnhsyf99 mm[Hg] Paulina M Hoy Work Phone: [phone]-Ijjac [facility] DO Work Phone: 1(211) [phone] 11:08-0400Systolic blood svjolffn727 mm[Hg] Paulina M Hoy Work Phone: [phone]([phone]-Yhmtv [facility] 250 DO Work Phone: 1(995)[phone] 11:03-0400Body wjioqs462.18 cmDouglas M Hoy Work Phone: [phone]-Dpxil [facility] DO Work Phone: 1(421)[phone]-4823 11:03-0400Body mass index (BMI) [Ratio]29.6 kg/a2Pyoevbf M Hoy Work Phone: [phone]-Uqikj [facility] 250 DO Work Phone: 1(176)[phone] 11:03-0400Body surface area Derived from formula1.97 l2Rdlbsun M Hoy Work Phone: 1([phone])[phone]-Qjcko [facility] DO Work Phone: 1(224)[phone] 11:03-0400Body wlerzv53.73 kgDouglas M Hoy Work Phone: 1([phone]-Sencl [facility] 250 DO Work Phone: 1(297) 312-350203-14-2022 11:03-0400Diastolic blood bdbwypze55 mm[Hg] Paulina M Hoy Work Phone: 1([phone]-Wbxml [facility] DO Work Phone: 1(587)[phone] 11:03-0400Heart rate58 /minDouglas M Hoy Work Phone: 1([phone]-Qipxh [place] [facility] 250 DO Work Phone: 1(485) 295-741003-14-2022 11:03-0400Systolic blood kxwpcdhi183 mm[Hg] Paulina Tyson Work Phone: 1([phone]-Qvvid [place] [facility] 250 DO Work Phone: 1(265) 381-109210-06-2021 11:20-0400Body pinbcc592.18 cmAbdul Maximiliano Other [employer] Other 10-06-2021 11:20-0400Body mass index (BMI) [Ratio] 28.82 kg/q9Junyp Maximiliano Other [employer] Other 10-06-2021 11:20-0400Body vrevgpobdvn95.8 [degF]Chad Maximiliano Other [employer] Other 10-06-2021 11:20-0400Body afqpgi09.46 kgAbdul Maximiliano Other [employer] Other 10-06-2021 11:20-0400Diastolic blood nwohkorz32 mm[Hg] Chad Maximiliano Other [employer] Other 10-06-2021 11:20-0400Respiratory rate18 /minAbdul Maximiliano Other [employer] Other 10-06-2021 11:20-9595ZgH5% (BldA) [Mass fraction]98 % Chad Maximiliano Other [employer] Other 10-06-2021 11:20-0400Systolic blood zgvaborl774 mm[Hg] Chad Maximiliano Other [employer] Other [id number] 10:59-0400Diastolic blood zhhujkyh66 mm[Hg] M Paulina Hoy Work Phone: [facility]04-26-2021 10:59-0400 Respiratory rate16 /minM Paulina Hoy Work Phone: [facility]04-26-2021 10:59-0400 SaO2% (BldA) [Mass fraction]99 %M Paulina Hoy Work Phone: [facility]04-26-2021 10:59-0400 Systolic blood ukuurdzi423 mm[Hg]M Paulina Hoy Work Phone: [place] [address]-26-2021 10:44-0400 Heart rate75 /minM Paulina Hoy Work Phone: [facility]04-26-2021 09:25-0400 Body qnalvw333.18 cmM Paulina Hoy Work Phone: [facility]04-26-2021 09:25-0400 Body mass index (BMI) [Ratio]27.3 kg/m2M Paulina Hoy Work Phone: [facility]04-26-2021 09:25-0400 Body ykoxoz87.37 kgM Paulina Hoy Work Phone: [facility]04-08-2021 09:53-0400 Pulse Qwjxgdhj10 %[facility]04-08-2021 09:53-0400 SaO2% (BldA) [Mass fraction]97 %M Paulina Hoy Work Phone: [facility]04-07-2021 14:07-0400 Body szbjuv95 kgDoDerek Ville [address]-07-2021 14:07-0400 Ouelck462[address] cm[address] [facility] Encounters Encounter DateEncounter TypeCare ProviderFacilityStart: 06-10-2025 End: 64-73-8998odxodfyqarLnekusa M Hoy MD Work Phone: [phone]-Womkbsmaf Health Neph SandStart: 06-10-2025 End: 52-50-1070Jvmttic encounter procedureChad Field MD-[facility] Work Phone: Start: 06-06-2025 End: 54-57-0195Clwpjbe encounter procedureChad Field MD-Lab [facility] Work Phone: Start: 06-06-2025 End: 41-52-5319awpvcytrtvSssysfz M Hoy MD Work Phone: [facility]: 06-05[facility]2025 End: 22-84-5080Ctgmawi encounter procedureChad Field MD-Lab [facility] Work Phone: Start: 06-05-2025 End: 59-08-6960oebhnelzalXxpnbiz M Hoy MD Work Phone: [facility] Work Phone: Start: 05-19-2025 End: 09-07-0442Dartbl outpatient visit 25 minutesViki Cooney MD Work Phone: [facility] above:Non-ischemic cardiomyopathy (Multi); Presence of Watchman left atrial appendage closure device; Anticoagulated; Chronic systolic congestive heart failure, NYHA class 2 (Multi); Mixed hyperlipidemia; Dizziness; Use of cane as ambulatory aid; Deaf mutism, congenital; Never smoked tobacco; Body mass index (BMI) of 31.0 to 31.9 in adult; Benign prostatic hyperplasia, unspecified whether lower urinary tract symptoms presentStart: 05-19-2025 End: 57-68-1465txqdnkhauzXMUUYCPutnam [facility] Hospital AmbulatoryStart: 10-14-2024 End: 27-91-2964Alrvhj outpatient visit 25 minutesViki Cooney MD Work Phone: uh [facility] above:Non-ischemic cardiomyopathy (Multi); Chronic systolic congestive heart failure, NYHA class 2; Persistent atrial fibrillation (Multi); Cerebrovascular accident (CVA), unspecified mechanism (Multi); Presence of Watchman left atrial appendage closure device; Stage 3a chronic kidney disease (Multi); Deaf mutism, congenital; Sympathotonic orthostatic hypotension; Risk for falls; BMI 30.0-30.9,adultStart: 10-14-2024 End: 38-33-6923yghsrsewvcYUQSVJ [facility] AmbulatoryStart: 10-09-2024 End: 56-55-7873Mninxjk encounter procedurePaulina Tyson MD Work Phone: [facility] [place] Work Phone: Start: 10-09-2024 End: 62-88-0374ybmgrlfpwmAtynept M Hoy MD Work Phone: [facility] Work Phone: Start: 09-13-2024 End: 18-35-0959kahwzqtsbvVXXGXASamaritan Hospitaltart: 09-10-2024 End: 14-15-0813vbftdjjyaiZdujsws M Hoy MD Work Phone: [facility] Work Phone: Start: 09-10-2024 End: 66-48-7491Ftlyxlvrep Irene Tyson MD Work Phone: [facility] [facility] Start: 35-70-2445Lkyqxmrkbj Irene Tyson MD Work Phone: [facility] [facility] Start: 07-29-2024 End: 59-57-4906Jpddeg flowsheetAngela Lowe PA Work Phone: noms NEUROLOGYStart: 07-29-2024 End: 36-92-0332Geisvo flowsheetAngela Lowe PA Work Phone: noms NEUROLOGYStart: 07-29-2024 End: 38-68-0511Wmfhzc outpatient visit 25 minutesAngela Lowe PA Work Phone: noms NEUROLOGYComment on above:Cerebrovascular accident (CVA) due to embolism of right middle cerebral artery (CMS/HCC) (Primary Dx); Weakness of wrist; Weakness of left handStart: 07-29-2024 End: 48-69-6676pupllrujagXOCUTD LOWENot AvailableStart: 07-16-2024 End: 12-53-9720Hnlesfcorina Mendoza MD Work Phone: [facility] ROUTEStart: 07-16-2024 End: 62-05-4553Nipylj Fernanda Mendoza MD Work Phone: n[facility] ROUTEStart: 07-15-2024 End: 93-08-7030Hjjeod outpatient visit 25 minutesViki Cooney MD Work Phone: uh [facility] HospitalComment on above:Presence of Watchman left atrial appendage closure device; Cerebrovascular accident (CVA), unspecified mechanism (Multi); Anticoagulated; Non-ischemic cardiomyopathy (Multi); Chronic systolic congestive heart failure, NYHA class 2; Deaf mutism, congenital; Risk for falls; Stage 3a chronic kidney disease (Multi); BMI 31.0-31.9,adult; Permanent atrial fibrillation (Multi)Start: 07-15-2024 End: 77-44-0815sgowlzmbuzNHIYYFPutnam General Hospital AmbulatoryStart: 06-24-2024 End: 19-68-2725Xjvszsnsn Result Hakan Mendoza MD Work Phone: n[facility] External Department UnsolicitedStart: 06-24-2024 End: 48-17-4118Exnsesjaf Result Hakan Mendoza MD Work Phone: n[facility] External Department UnsolicitedStart: 06-20-2024 End: 75-68-0693Gebzonhdm Result EncounterAdam Kapler DO Other Phone: noms External Department UnsolicitedStart: 06-20-2024 End: 70-53-6589Ygzhesuyr Result EncounterAdam Kapler DO Other Phone: noms External Department UnsolicitedStart: 06-19-2024 End: 24-39-5906Tqiwyzaxqk and management of inpatientRonobir R XU Facility:FTMCStart: 26-50-9665Sewpiimoe department patient visitDO Tristan Mirandacility:MCStart: 06-19-2024 End: 74-24-4478Zspbjurpdn and management of inpatientRonobir R XU [facility] Start: 06-18-2024 End: 24-04-9374xcdrwbfttdTB Paulina Tyson Work Phone: [facility] Work Phone: Start: 06-18-2024 End: 97-12-4598Bbxdrii encounter procedure Paulina Tyson Work Phone: [facility] Ne[facility] [place] Work Phone: Start: 06-11-2024 End: 83-40-8164Vcbxuzryia hospital visit by Kadeem Lopez[address] StreetComment on above:Atrial fibrillation, unspecified type (Multi) Start: 06-11-2024 End: 98-64-9697hsmkaxynfbITKQTFOhioHealth O'Bleness Hospitaltart: 06-07-2024 End: 17-31-8346cplgfwfmhtWC Paulina Tyson Work Phone: [facility] Work Phone: Start: 06-07-2024 End: 44-85-1149Sbjpjqt encounter procedure Paulina Tyson Work Phone: [facility] [place] Work Phone: Start: 03-04-2024 End: 26-53-6407Vacwwy outpatient visit 25 minutesViki Cooney MD Work Phone: [facility] HealthComment on above:Chronic systolic congestive heart failure, NYHA class 2 (Multi); Non-ischemic cardiomyopathy (Multi); Mild CAD; Persistent atrial fibrillation (Multi); Mixed hyperlipidemia; Sympathotonic orthostatic hypotension; Stage 3a chronic kidney disease (Multi); Presence of Watchman left atrial appendage closure device; BMI 31.0-31.9,adultStart: 02-09-2024 End: 72-53-4067klfyewjcpnJMRNBQM A [facility] Cent[facility]art: 02-09-2024 End: 19-46-6869Mglsygfbsl hospital [facility] by [facility] [place] [facility] [place] Ayc3734 Cr Nonv1 Holter/Ecg ResourceLyons VA Medical Center MatherComment on above:Arrived Start: 02-09-2024 End: 17-61-4912Dqlezrpyr for preprocedural cardiovascular examinationSKARLEY Wh[place] [facility] Hospitaltart: 02-09-2024 End: 35-03-9193Ujbacrdwwx and management of inpatientSkarley Santiago MD Work Phone: [facility] 7Comment on above:Atrial fibrillation, unspecified type (Multi) (Primary Dx); Preop cardiovascular exam; Presence of Watchman left atrial appendage closure device; Postop checkStart: 02-09-2024 End: 01-80-9917Ijtrfnt encounter statusAdebayo Santiago MD Work Phone: [facility] Work Phone: Start: 02-09-2024 End: 19-01-0426Bfnppdkdno hospital visit by physicianC[facility] [place] [facility] [place] [address] [place], [place] [address]Comment on above:Atrial fibrillation, unspecified type (Multi) Start: 02-09-2024 End: 87-28-4448qvsrqjhzcbCSNJPP J [facility] Hospitaltart: 01-29-2024 End: 90-13-7834xurcjooifmYZ Paulina Tyson Work Phone: [facility] Work Phone: Start: 01-29-2024 End: 92-21-5800Tjpijpq encounter procedureMD Paulina Tyson Work Phone: [facility] [place] Work Phone: Start: 12-27-2023 End: 82-07-8601Ftgcbd outpatient new 45 minutesAdebayo Santiago MD Work Phone: [facility] CenterComment on above: Paroxysmal atrial fibrillation (Multi) (Primary Dx)Start: 12-27-2023 End: 61-24-8281acujaufrazOLJAQM J [facility] Hospital[facility]: 12-04-2023 End: 47-58-7239Tgdxyn outpatient visit 25 minutesViki Cooney MD Work Phone: uh [facility] HospitalComment on above:Non-ischemic cardiomyopathy (Multi); Persistent atrial fibrillation (Multi); Mild CAD; Mixed hyperlipidemia; Sympathotonic orthostatic hypotension; Chronic systolic congestive heart failure, NYHA class 2 (Multi); Never smoked tobacco; BMI 30.0-30.9,adult; Deaf mutism, congenital; Benign prostatic hyperplasia with urinary frequency; Stage 3a chronic kidney disease (Multi); Falls frequentlyStart: 12-04-2023 End: 62-37-1057nftaktasfwQV Paulina Suazo Omidvick Work Phone: [facility] Work Phone: Start: 12-04-2023 End: 80-76-0396Dyvsjca encounter procedureMD Paulina Tyson Work Phone: [facility] Nephrology Work Phone: Start: 11-21-2023 End: 95-72-3224tdkjgyvjqsDlsdaqo R NILLFacility: [place]art: 11-21-2023 End: 27-02-5108Smrugmy encounter procedureMichael R NILL [phone]-FnvmoTrihealth [facility] [place] Start: 11-17-2023 End: 00-92-0438Nitlbml encounter procedureMD Paulina Tyson Work Phone: [facility] [place] Work Phone: Start: 10-31-2023 End: 10-29-3381bmsctjxahkPuqtfmz R NILLFacility:[facility] CenterkStart: 10-31-2023 End: 04-09-9992Zzzphsg encounter procedureMichael R NILL [phone]-FkavbTrihealth Mccullough-[facility] [place] Start: 10-17-2023 End: 12-25-0207amwciowruyArwituj R NILLFacility:[facility]tart: 10-17-2023 End: 44-79-9236Oltnlzh encounter procedureMichael R NILL [phone]-IkofdFulton County Health Center Surgery [place] Start: 10-09-2023 End: 15-99-9410Rggmkapfd to same day surgery centerMichael R NILL [facility] Start: 10-09-2023 End: 52-13-7287mljmfgfvksIixxhiw R NILLFacility:FTMCStart: 09-27-2023 End: 92-75-2950Oxzeiw outpatient visit 25 The Medical Centeramanda Mendoza APRNENCOMPASS [facility] Work Phone: uh [facility] on above:Persistent atrial fibrillation (CMS/HCC) (Primary Dx); Anticoagulated; Mild CAD; Non-ischemic cardiomyopathy (CMS/HCC); Mixed hyperlipidemia; Class 1 obesity due to excess calories without serious comorbidity with body mass index (BMI) of 30.0 to 30.9 in adult; Sympathotonic orthostatic hypotensionStart: 09-19-2023 End: 27-47-0648ishcgxeircPdsjbko R NILLFacility:FTMCStart: 08-31-2023 End: 17-97-4355xfatueckyjYlvcces R NILLFacility:[facility] Hospitaltart: 08-31-2023 End: 76-15-0543Iadueud encounter procedureMichael R NILL [phone]-MibiyFulton County Health Center Surgery [place] Start: 08-17-2023 End: 51-75-6135xwskzqqugyXbnulxm R NILLFacility: [place]walkStart: 08-17-2023 End: 96-00-0868Gxnjulm encounter procedureMichael R NILL [phone]-SfwifTrihealth Mccullough-[facility] General [facility] [place] Start: 37-67-6686gchsbbvdafYujcgrr NILLFacility: [place]walkStart: 07-25-2023 End: 80-69-0199nsvwmfyqmlQyoqder R NILLFacility:FTMCStart: 07-25-2023 End: 27-79-4665Bipxryh encounter procedureMichael R NILL [facility] Start: 07-21-2023 End: 14-73-9913umscspctkhQtqzmny R NILLFacility:FTMCStart: 07-21-2023 End: 96-00-2353Skhroue encounter procedureMichael R NILL [facility] Start: 07-05-2023 End: 02-78-5942akqlkouemxMpkaywu HoyFacility: SuzannaMinnietart: 07-05-2023 End: 30-79-1555Llovgky encounter procedureMichael R NILL General Surgery Nill/Said Chucho Start: 05-25-2023 End: 45-22-9033Gyxeyy outpatient visit 25 minutesViki Cooney MD Work Phone: [facility] on above:Persistent atrial fibrillation (CMS/HCC) (Primary Dx); Risk for falls; Non-ischemic cardiomyopathy (CMS/HCC); Sympathotonic orthostatic hypotension; Chronic systolic congestive heart failure, NYHA class 2 (CMS/HCC); Anticoagulated; Gait disturbance; Shortness of breath; Deaf mutism, acquiredStart: 16-04-3169Zvdjhi outpatient visit 25 minutesDouglas M Hoy Work Phone: [phone]-Pygiz [facility] [facility] Work Phone: Start: 59-15-7468Qtzjgae encounter procedureDouglas M Hoy Work Phone: [phone]-Gegzq [facility] [facility] DO Work Phone: Start: 29-50-7719CRY, Provider: Viki Cooney, Status: Pen, Time: 9:30 AMDphillipglas Taniya Hoy Work Phone: [facility] Work Phone: Start: 15-84-6906Iswybw outpatient visit 25 minutes Paulina M Hoy Work Phone: [phone]-Lzplo [facility] [facility] DO Work Phone: Start: 63-92-1084Slirajd encounter procedureDouglas M Hoy Work Phone: [phone]-Fnhqb [facility] [facility] DO Work Phone: Start: 80-34-2352Sodvskd encounter procedureDouglas M Hoy Work Phone: [phone]-Ossni [facility] [facility] DO Work Phone: Start: 55-32-7085Zaprcjg encounter procedureDouglas M Hoy Work Phone: [phone]-Eitnw [facility] [facility] DO Work Phone: Start: 12-02-2022 End: 17-88-1034rkrkkjwueoHB Paulina M Hoy Work Phone: [facility] Work Phone: Start: 12-02-2022 End: 24-99-5302Lnxjbua encounter procedureMD Paulina Hoy Work Phone: [facility]-Electrodiagnostics Work Phone: Start: 31-67-7440Tsprwc outpatient visit 25 minutes Paulina M Hoy Work Phone: [phone]-Juukg [facility] [facility] DO Work Phone: Start: 10-31-2022 End: 41-31-5583ugpskroksiGdsot Maximiliano Other [facility] Qustodio Other Start: 69-30-3149Gqoetp outpatient visit 15 minutes Chad QadirFPG NephrologyStart: 10-24-2022 End: 19-03-9601twlkworaxxRT Paulina M Hoy Work Phone: [facility] Work Phone: Start: 10-24-2022 End: 47-35-1536Jvshaiq encounter procedureMD Paulina Hoy Work Phone: [facility] [place] Work Phone: Start: 01-18-6547Xr RenewalDolorettaterence M Hoy Work Phone: [phone]-Imrrv [facility] [address] DO Work Phone: Start: 59-41-0241Jblxs UpdateDouglas M Hoy Work Phone: [phone]-Rvbxj [facility] [facility] DO Work Phone: Start: 08-16-2022 End: 41-67-5524lksshccnwfLV Paulina M Hoy Work Phone: [facility] Work Phone: Start: 08-16-2022 End: 32-81-7638Djhrrix encounter procedureMD Paulina Hoy Work Phone: [facility]-Respiratory Therapy Work Phone: Start: 01-12-8126Wstbqla encounter procedureDouglas M Hoy Work Phone: [phone]-Mqhws [facility] Work Phone: Start: 85-09-9016glfklnfczuPpMichele Cooney Facility:[id number]: 04-25-8153Zzpilyt encounter procedureDouglas M Hoy Work Phone: [phone]-Ewdzq [facility] 250 DO Work Phone: Start: 91-16-2568Ux RenewalDouglas M Hoy Work Phone: [phone]-Pwygp [facility] 250 DO Work Phone: Start: 97-73-3242Gq RenewalDouglas M H[place] Work Phone: [phone]-Rseiy [facility] 250 DO Work Phone: Start: 12-27-2021 End: 52-14-6568Bgwqhum encounter procedurePadania LEVIN [facility] start: 35-51-6372Yu RenewalDouglas M [place] Work Phone: [phone]-Yzuzk [facility] 250 DO Work Phone: Start: 11-16-2021 End: 38-00-1492cbvvcffgizNwlar Maximiliano Other Odessa ChatterPlug Other Start: 50-70-0405Porshs outpatient visit 15 minutes Chad QadirFPG NephrologyStart: 72-17-0251Ulniuse encounter procedureDouglas M Hoy Work Phone: [phone]-Yhwau [facility] DO Work Phone: Start: 39-34-3308Cqnqgt outpatient visit 25 minutes Paulina M Hoy Work Phone: [phone]-Mzjif [facility] DO Work Phone: Start: 58-66-7621Tl RenewalMichael Lyster DO Work Phone: [phone]-Vzxgw [facility] [facility] DO Work Phone: Start: 05-31-2021 End: 95-05-7818zyjtngabocMM RENATO R SMITHFacility:N6Rcodb: 84-27-0441Rjfhdk outpatient visit 25 minutesAbdul QadirFPG NephrologyStart: 04-14-2021 End: 77-87-2711oedreclrejVR PAULINA HOYFacility:Y6Oscoy: 02-17-2021 End: 99-08-4749thqsaweyenHB RENATO MENDOZAFacility:U9Fcpwo: 01-07-2021 End: 00-12-6162Bnbnrhq encounter procedureM Paulina Hoy Work Phone: [phone]-Msyszkssk HealthStart: 12-23-2020 End: 34-71-2734dovquktaxzAI DOCTOR MISCFacility:D1Bhbwh: 12-16-2020 End: 44-23-3089poxsxkotifPP DOCTOR MISCFacility:H6Jhyut: 42-20-5012yccqjiwavhKH DOCTOR MISCFacility:M6Btbwu: 12-14-2020 End: 03-84-3010Dvqfjhtpb to same day surgery centerM Paulina Hoy Work Phone: [phone]-Lsnmqywng HealthStart: 12-10-2020 End: 02-52-8284Bqyvkvy encounter procedureM Paulina Hoy Work Phone: -Pre-Surgical TestingStart: 11-26-2020 End: 98-31-2952Beavhlqqe to day surgeryDouglas Hoy-Procedure OutpatientStart: 11-24-2020 End: 26-14-3154Ofdxsxr encounter procedureDouglas Hoy-Respiratory TherapyStart: 11-16-2020 End: 47-17-7902Boiiahz encounter procedureDouglas Hoy-Lab [facility]Start: 11-02-2020 End: 66-84-5399envneiltnvOG DOCTOR MISCFacility:I8Mtynd: 10-26-2020 End: 37-32-7762ykqbsyeplzPE PAULINA HOYFacility:U3Udiec: 09-07-2020 End: 63-23-8667ovvzsszqrcBR PAULINA HOYFacility:U0Giedf: 08-24-2020 End: 32-57-7838Cjfpyrn encounter procedureDouglas Hoy-Lab [facility] CampusStart: 01-16-2018 End: 63-71-7939ZtacolbzwhSOHCLF GUPTAFacility:[facility]ITALtart: 01-11-2018 End: 13-26-2047LolasiwkjrMVHCYHT PHYSICIANFacility:[facility] Procedures DateProcedureProcedure DetailPerforming ClinicianStart: 29-49-5313DH HEAD OR BRAIN W/O CONTRASTSteven Reji CHATMAN Work Phone: Start: 02-52-1088Wkmnroypnzxjvtx echocardiography Yoselin MCNAIR Start: 32-64-8888IS HEAD OR BRAIN W/O CONTRASTAdam Kapler DO Other Phone: Start: 08-37-7278HMBF TRANSTHORACIC COMPLETEAdam Kapler DO Other Phone: Start: 79-50-1975Hh heart contrast eval cardiac structure&Brandon Santiago MD Work Phone: Start: 02-09-2024 End: 48-78-5695Llcevbhxxny time activatedAdebayo Santiago MD Work Phone: Start: 33-14-8052Rzi routine ecg w/least 12 lds trcg only w/o i&rGregory A Gustavo INVENTORY AUDITOR-ENGLISH COMPOSITION INSTRUCTOR Work Phone: Start: 27-18-2584Gt heart contrast eval cardiac structure&Brandon Santiago MD Work Phone: Start: 31-59-8247Xhaoch repairMichael NILL Start: 17-59-4557Eljqxt of left inguinal herniaMichael NILL Start: 24-49-2325Wht routine ecg w/least 12 lds w/i&r Asya Mendoza INVENTORY AUDITOR-ENGLISH COMPOSITION INSTRUCTOR Work Phone: Start: 53-05-1839JwagbjmkhmbNarmwfa NILL Comment on above:diverticulosisStart: 07-21-2023 EsophagogastroduodenoscopyMichael NILL Comment on above:gastritis, biopsies done, HHStart: 78-72-7144Fucvw chest X-rayMD Paulina Hoy Work Phone: Start: 83-51-5645NFO screeningDR PAULINA HOYComment on above:Performed By: #### CMP, BNP #### [facility] [address] [place] [address] Lucero KarenStart: 13-47-7091Qokdydd endoscopyM Paulina Hoy Work Phone: Start: 05-27-0448VVY screeningDR PAULINA HOYComment on above:Performed By: #### CMP, BNP, HSTROPN #### [facility] [address] [place] [address] Lucero CarlenStart: 35-93-4273UbphasqspjjvpqmxqabqllzwkqY Paulina Hoy Work Phone: Start: 21-45-5022Ztofw chest X-rayDouglas HoyStart: 92-14-6634FistndimxjIxjebxc LEVIN Start: 13-72-8108Kxpdd hemicolectomyPatrick LEVIN Start: 46-45-0778IakkqjuwdlvWlkhnof NILL Start: 34-42-0123Prigjiyvyapwmfv guided transrectal cryoablation of prostatePatrick LEVIN CardioversionDouglas M Marbella Work Phone: Cataract extraction and insertion of intraocular lens Jamel NILL Cataract surgeryDouglas M Hoy Work Phone: Catheterization of both left and right heartPatrick LEVIN ColonoscopyPatrick LEVIN Operation on colonDouglas M Hoy Work Phone: Partial resection of colonPaulina Tyson Work Phone: Total colonoscopyDougterence Tyson Work Phone: Comment on above:21Aug2015; Plan of Treatment DateCare ActivityDetailAuthorStart: 05-07-2026 End: 22-67-9591Qiujiym encounter owqjvbqbk78/17/2026 1:00 PM EDT Office Visit [address] 250 [place] [address] Viki Cooney MD [address] [facility] 130 [place], [place] [address] [facility]: 16-77-0507WQLZA-19 Vaccine ( season)COVID-19 Vaccine ( season)[facility] Start: 02-82-3803Mgxqrefrb vaccinationInfluenza Vaccine (#1)[facility] HospitalStart: 04-14-2025 End: 12-51-8389Venkvbh encounter /25/2025 11:00 AM EDT Office Visit [address] [address] Viki Cooney MD [address] [place] [address] [address] [place] [address] [facility]: 10-23-2024 End: 52-07-0576Blqblhb encounter pyjnvuujv78/05/2025 1:20 PM EST Office Visit [address] [phone] Jess Barry PA [address] [place] [address] [facility] NEUROLOGYStart: 10-14-2024 End: 02-11-8243EZS panel - Blood by Automated countCBC Lab Routine Non-ischemic cardiomyopathy (Multi) Persistent atrial fibrillation (Multi) Stage 3achronic kidney disease (Multi) Expected: 10/14/2024 (Approximate), Expires: 10/14/2025 [facility] Work Phone: Comment on above:Expected: 10/14/2024 (Approximate), Expires: 10/14/2025Start: 10-14-2024 End: 90-17-5610Yljnxjhdtkltq metabolic 2000 panel - Serum or PlasmaComprehensive Metabolic Panel Lab Routine Non-ischemic cardiomyopathy (Multi) Persistent atrial fibrillation (Multi) Stage 3a chronic kidney disease (Multi) Expected: 10/14/2024 (Approximate), Expires: 10/14/2025[facility] Service Area Work Phone: Comment on above:Expected: 10/14/2024 (Approximate), Expires: 10/14/2025Start: 10-14-2024 End: 80-36-3719Iapfleg encounter yfiuzzjew80/24/2025 1:00 PM EST Office Visit [address] 250 [place] [address] Viki Cooney MD [address] [facility] 130 [place] [address] [facility]: 09-13-2024 End: 93-77-8608Jbyszfk encounter vvjusjwtb56/24/2025 10:30 AM EST Appointment [address] 101 [place], [place] RXUnityPoint [facility] Centertart: 09-05-2024 End: 24-09-9481Rhgqrtk encounter /16/2025 12:30 PM EST Office Visit [facility] [address] [facility] 200 [place] [address] Adebayo Mendoza MD [address] [place], [place] [address] [facility]UR[facility]YStart: 07-29-2024 End: 31-39-9388Hskyhtx encounter /09/2024 10:40 AM EST Office Visit [facility] [address] [facility] 353 [place] [phone] Jess Barry PA [address] [place] [address] [facility] CenterComment on above:ArrivedStart: 07-15-2024 End: 03-83-7240Wsdwk metabolic 2000 panel - Serum or PlasmaBasic Metabolic Panel Lab Routine Non-ischemic cardiomyopathy (Multi) Chronic systolic congestive he art failure, NYHA class 2 (Multi) Expected: 07/15/2024 (Approximate), Expires: 07/15/2025[facility] Service Area Work Phone: Comment on above:Expected: 07/15/2024 (Approximate), Expires: 07/15/2025Start: 07-15-2024 End: 14-57-6098IBN panel - Blood by Automated countCBC Lab Routine Anticoagulated Expected: 07/15/2024 (Approximate), Expires: 07/15/2025[facility] Work Phone: Comment on above:Expected: 07/15/2024 (Approximate), Expires: 07/15/2025Start: 07-15-2024 End: 27-97-9825Bsptgcv encounter xqikjyjxt26/25/2024 1:30 PM EST Office Visit [facility] [address] [facility] 250 [place] [address] Viki Cooney MD [address] [facility] 130 [place] [address] [facility] HealthStart: 06-10-2024 End: 31-74-9074Opohquv encounter qrkwridkb92/21/2024 11:30 AM EDT Appointment [facility] [address] [place] [address] [facility]: 06-03-2024 End: 08-27-5766Xvtamwm encounter procedureCrossbridge Behavioral HealthStart: 05-05-2024 End: 66-58-1361Wmbqi metabolic 2000 panel - Serum or PlasmaBasic Metabolic Panel Lab Routine Persistent atrial fibrillation (Multi) Mild CAD Mixed hyperlipidemia Chronic systolic congestive heart failure, NYHA class 2 (Multi) Expected: 05/05/2024, Expires: 12/03/2024[facility] Work Phone: Comment on above:Expected: 05/05/2024, Expires: 12/03/2024Start: 05-05-2024 End: 50-99-5169LAK panel - Blood by Automated countCBC Lab Routine Persistent atrial fibrillation (Multi) Mild CAD Mixed hyperlipidemia Chronic systolic congestive heart failure, NYHA class 2 (Multi) Expected: 05/05/2024, Expires: 12/03/2024[facility] Service Area Work Phone: Comment on above:Expected: 05/05/2024, Expires: 12/03/2024Start: 16-64-0112VVZEQ-19 Vaccine ( season)COVID-19 Vaccine ()[facility]: 24-60-7042VWPQD-19 Vaccine ( season)COVID-19 Vaccine ( season)[facility]: 85-00-5411Sovhmovnb vaccinationInfluenza Vaccine (#1)[facility]: 02-29-2024 End: 39-39-1956Ctikjmz encounter yyiwhsgyr65/11/2024 11:00 AM EDT Office Visit [facility] [address] [facility] 250 [place] [address] Viki Cooney MD [address] [facility] 130 [place] [address] [facility]: 12-27-2023 End: 59-25-0605Ajsctvt encounter rjugjuova27/08/2024 3:00 PM EDT Office Visit [facility] [address] [facility] 101 [place] [address] [place] [address] [address] [place], [place] [address] [facility]: 12-04-2023 End: 30-21-2260Kfwfkpi encounter ymfjhwgfo80/15/2024 1:00 PM EDT Office Visit [facility] [address] 250 [place] [address] Viki Cooney MD [address] [facility] 300 [place] [address] [facility] HealthStart: 11-01-2023 End: 91-65-0836Fggnflb encounter fvauhelux70/13/2024 8:00 AM EDT Office Visit [facility] [address] [facility] 101 [place] [address] [place] [address] [place], [place] [address] [facility]: 09-27-2023 End: 83-33-7774Yamwqw monitor [facility] Service Area Work Phone: Comment on above:Expected: 09/27/2023, Expires: 09/27/2024Start: 32-90-3448LWI, Provider: Viki Cooney, Status: Pen, Time: 10:15 AMFUV, Provider: Viki Cooney, Status: Pen, Time: 10:15 [place] [address] DO Work Phone: Start: 73-77-2038BQWTH-19 Vaccine ( season) COVID-19 Vaccine ( season)[facility] HospitalStfaison: 39-96-2361Rbfzhsygk vaccinationInfluenza Vaccine (#1)[facility]: 88-78-0210TIM, Provider: Adebayo Santiago, Status: Pen, Time: 1:30 PMNPV, Provider: Adebayo Santiago, Status: Pen, Time: 1:30 PMMP-[place] [facility] [place] [address] DO Work Phone: Start: 00-65-8624TVS, Provider: Viki Cooney, Status: Pen, Time: 10:45 AMFUV, Provider: Viki Cooney, Status: Pen, Time: 10:45 AMMP- [facility] 250 DO Work Phone: Start: 42-76-9189MIP, Provider: Viki Cooney, Status: Pen, Time: 9:30 AMFUV, Provider: Viki Cooney, Status: Pen, Time: 9:30 AMMP- [facility] 250 DO Work Phone: Start: 60-19-7304LBCSCG 48, Provider: SADIQ SANCHES DIET ATTENDANT 1,[id number], Status: Pen, Time: 1:00 PMHOLTER 48, Provider: SADIQ SANCHES DIET ATTENDANT 1,[id number], Status: Pen, [facility]: [facility] [facility] DO Work Phone: Start: 12-50-5201GSL, Provider: Viki Cooney, Status: Pen, Time: 1:00 PMFUV, Provider: Viki Cooney, Status: Pen, Time: 1:00 PM[facility] 250 DO Work Phone: Start: 18-03-0624Vcpbjwna screeningDiabetes: [facility]: 68-93-5068SQPGTZ NUC, Provider: NABIL HHVI NUCLEAR 01,[id number], Status: Pen, Time: 12:00 PM STRESS NUC, Provider: NABIL HHVI NUCLEAR 01,[id number], Status: Pen, Time: 12:00 PMMP-[facility] 250 DO Work Phone: Start: 42-94-2828LAM, Provider: Jamel Lockhart, Status: Pen, Time: 9:45 AMFUV, Provider: Jamel Lockhart, Status: Pen, Time: 9:45 AMMPProv[facility] 250 DO Work Phone: [phone]: 63-12-0987RPINV-19 Vaccine (4 - Pfizer series) COVID-19 Vaccine (4 - Pfizer series)[facility]: 99-55-2889IFT, Provider: Jamel Lockhart, Status: Pen, Time: 10:45 AMFUV, Provider: Jamel Lockhart, Status: Pen, Time: 10:45 [facility] [place] [facility] DO Work Phone: Start: 65-94-9084LOY High Risk: (Elderly (60+) or Population) (1 - 1-dose 75+ series)RSV High Risk: (Elderly (60+) or Population) (1 - 1-dose 75+ series)[facility] Start: 58-73-2224Mxallzwmu B Vaccines (1 of 3 - Risk 3-dose series)Hepatitis B Vaccines (1 of 3 - Risk 3-dose series)[facility]: 20-65-6202DEA patients and/or patients aged 60+ years (1 - 1-dose 60+ series)RSV patients and/or patients aged 60+ years (1 - 1-dose 60+ series)[facility]: 58-45-1884Ppuwhh Vaccines (1 of 2)Zoster Vaccines (1 of 2)[facility]: 1967 DTaP/Tdap/Td Vaccines (1 - Tdap)DTaP/Tdap/Td Vaccines (1 - Tdap)[facility]: 68-56-3693Bfzcfaklz A Vaccines (1 of 2 - Risk 2- dose series)Hepatitis A Vaccines (1 of 2 - Risk 2-dose series)[facility]: 54-19-3176Rfvbx screening for proteinUnPremier Health [facility]: 22-28-4794Rzrcqpik mellitus screeningDiabetes ScreeningUnPremier Health [facility]: 09-74-3078Tixsidinm C screening Hepatitis C ScreeningGal[facility]: 10-99-4089Slfhgccp foot examinationDiabetes: Foot ExamUnPremier Health [facility]: 03-53-7351Ndmsll wellness visitMedicare Initial Physical (IPPE)[facility]: 55-62-9915Nflbjdqhjk measurementCreatinine Level [facility]: 42-79-9069BozvtqovfckvrkjqKbigvdfuungrah [facility]: 49-85-8010Dwhdqubmmf A1c measurement Diabetes: Hemoglobin V4DSnypvonguiGalion Community Hospital: 19-14-3234Wtapg panelLipid PanelUnPremier Health [facility]: 01-25-1946Medicare Annual Wellness VisitMedicare Annual Wellness Visit (AWV)[facility]: 09-26-2486Pkkwmtbbt measurementPotassium LevelUnPremier Health [facility]: 83-19-9512Untpgpg stimulating hormone measurement TSH LevelParkview Health Bryan Hospital End: 86-54-0702RNT and Rh group panel - BloodAbo/Rh Lab STAT STAT (Lab) for 1 Occurrences starting 02/09/2024 until 02/09/2024[facility] Work Phone: Comment on above:STAT (Lab) for 1 Occurrences starting 02/09/2024 until 02/09/2024 End: 56-46-3874Uizgd type and Indirect antibody screen panel - BloodType And Screen Lab STAT STAT (Lab) for 1 Occurrences starting 02/09/2024 until 02/09/2024[facility] Service Area Work Phone: Comment on above:STAT (Lab) for 1 Occurrences starting 02/09/2024 until 02/09/2024 End: 29-34-5200Bpmjfwr catheterization studyNORTHERN NAVAJO MEDICAL [facility]ENTER Service Area Work Phone: Comment on above:Once for 1 Occurrences starting 01/09/2024 until 01/09/2024 End: 69-21-4884Bonwmdzakmygp of physical activity toleranceCardiac rehab evaluation Card Rehab Routine Once for 1 Occurrences starting 02/09/2024 until 02/09/2024[facility] Work Phone: Comment on above:Once for 1 Occurrences starting 02/09/2024 until 02/09/2024ECG 12 LeadECG 12 Lead ECG Routine Persistent atrial fibrillation (CMS/HCC) 09/27/2023 1:13 PM ESTParkview Health Bryan Hospital Work Phone: End: 63-51-5459SIA 12 leadParkview Health Bryan Hospital Work Phone: Comment on above:Once for 1 Occurrences starting 02/09/2024 until 4As needed until discontinued starting 02/09/2024 End: 60-66-0741GHQ 12 lead dailyECG 12 lead daily ECG Routine Daily for 3 Days starting 02/09/2024 until 02/11/2024[facility] Work Phone: Comment on above:Daily for 3 Days starting 02/09/2024 until 02/11/2024 End: 51-67-8498Gzeuhom [Mass/volume] in Serum or PlasmaPOCT glucose Point of Care Testing - Docked Device Routine 4 times daily before meals and at bedtime for 3 Days starting 02/09/2024 until 02/12/2024[facility] Work Phone: Comment on above:4 times daily before meals and at bedtime for 3 Days starting 02/09/2024 until 02/12/2024 End: 65-38-0568Yorrntpwt spirometry InstructIncentive spirometry Instruct Respiratory Care Routine Once for 1 Occurrences starting 02/09/2024 until 02/09/2024[facility] Work Phone: Comment on above:Once for 1 Occurrences starting 02/09/2024 until 02/09/2024atient EducationHiatal Hernia (DC) Colorectal Polyps (DC)[facility] End: 74-67-1807Nrzzs oximetry, continuousPulse oximetry, continuous Respiratory Care Routine Continuous until discontinued starting 02/09/2024[facility] Work Phone: Comment on above:Continuous until discontinued starting 02/09/2024enal function 1999 panel - Serum or [facility] HospitalRenal function 1999 panel - Serum or [facility] HospitalRenal function 1999 panel - Serum or [facility] End: 24-70-6215CB Heart TransthoracicUnSelect Medical Specialty [facility] Work Phone: Comment on above:Once for 1 Occurrences starting 02/09/2024 until 02/09/2024[facility] Immunizations Immunization DateImmunizationNotesCare EpzxsfglQdionpns97-20-3828jedmidbfc virus vaccine, unspecified formulationViki Cooney MD Work Phone: [facility] Work Phone: [phone]t, seasonal, injectableViki Cooney MD Work Phone: [facility] Work Phone: [phone] virus vaccine, unspecified formulationAdataniya Hall DO Other Phone: NOFreeman Heart InstituteOphewdxtjy23-00-4531nnzkhplsq virus vaccine, unspecified formulationMichael NILL GeneSharp [facility] CenterCxulpmbh07-41-3996Ffdxoef 20 0.5 ML Intramuscular Suspension Prefilled SyringeDouglas M Hoy Work Phone: [phone]-EogbbWestbrook Medical Center 250 DO Work Phone: [phone] 30 MCG/0.3ML Intramuscular SuspensionDouglas M Hoy Work Phone: [phone]-IrvhpWestbrook Medical Center 250 DO Work Phone: [phone]-TosFYuxd COVID-19 Vacc 30 MCG/0.3ML Intramuscular SuspensionDouglas M Hoy Work Phone: [phone]-PdgwaWestbrook Medical Center 250 DO Work Phone: Comment on above:Series:00-46-3515HIBJ-CoV-2 mRNA (ojwevfqgevo-zasy-udiixqy) vaccineMichael NILL GeneSharp [facility] Medical CenterByeeslnm97-88-5917btsjxpthe virus vaccine, unspecified formulationSkarley Mendoza MD Work Phone: NOFreeman Heart InstituteDzkltshduk63-76-0499Iajnjv-DduTXxwc COVID-19 Vacc 30 MCG/0.3ML Intramuscular SuspensionPaulina Tyson Work Phone: [facility] BellueComment on above:Result Comment: 2023-06-21: RSN7586-70-9360WHOQM-41 mRNA,IFQ354r2 (Pfizer)Taniya Tyson Work Phone: [facility] HealthComment on above: Result Comment: 2023-06-21: ONN2327-22-5500OEGZZ-29 mRNA,DWY625e3 (Pfizer)Taniya Tyson Work Phone: [facility] HealthComment on above: Result Comment: 2023-06-21: BUK9887-10-1451Voxnobte trivalent influenza vaccine, adjuvanted, preservative freeViki Cooney MD Work Phone: [facility] Work Phone: [phone] virus vaccine, unspecified formulationViki Cooney MD Work Phone: [facility] Work Phone: [phone] virus vaccine, unspecified formulationNoelterence Tyson Work Phone: [phone]-SjcajGlor[place] [address] DO Work Phone: [phone], seasonal, injectableViki Cooney MD Work Phone: [facility] Work Phone: [phone]k virus vaccine, unspecified formulationNoelterence Tyson Work Phone: [phone]-FmsnaWestbrook Medical Center 250 DO Work Phone: [phone]p virus vaccine, unspecified formulationNoelterence Tyson Work Phone: [phone]-OypmsWestbrook Medical Center 250 DO Work Phone: [phone]wd, high dose seasonal, preservative-freeViki Cooney MD Work Phone: [facility] Work Phone: [phone]hnt conjugate vaccine, 13 valmanjit Suazo Hoy Work Phone: [phone]-AdkjnWestbrook Medical Center 250 DO Work Phone: [phone], high dose seasonal, preservative-freeDoumarcelle Suazo Hoy Work Phone: [phone]-TxyobWestbrook Medical Center 250 DO Work Phone: [phone]elj conjugate vaccine, 13 valmanjit Suazo Hoy Work Phone: [phone]-KptxoWestbrook Medical Center 250 DO Work Phone: [phone]recxv, high dose seasonal, preservative-freeDsuleman Suazo Hoy Work Phone: [phone]-BwusrWestbrook Medical Center 250 DO Work Phone: [phone]mnjtr polysaccharide vaccine, 23 valentDougterence Suazo [facility] Work Phone: [phone]-ZlloxWestbrook Medical Center 250 DO Work Phone: Payers DatePayer CategoryPayerGeisinger Wyoming Valley Medical Centery [id number]-uol [id number] Health InsuranceAARP [id number] 2023Medicare supplemental policy (as second payer)[employer] Member Subscriber Plan / Payer (Effective 2022-Present) Name: Ayad De La Rosa Relation to Subscriber: Self Name: Ayad DeL a Rosa Payer ID: Not on file Group ID: Not on file Type: Not on file Address: [address] [place] [id number] [id number] Health [id number] [id number] 1960Medicare [id number] ..1.423968.3.57[id number] ..1.749304.3.579.2.83202-26-1652Mopqhmq1561474 ..1.964560.3.579.2.59362-48-6836Efsqtmn1093005 2..1.239858.3.579.2.77532-47-5461Oiuqpqw8762835 2..1.372624.3.579.2.57671-31-6278Kppxrtm1711675 2..1.157389.3.579.2.30934-01-6296Wsvedfj9258747 2.840.1.419177.3.579.2.44609-43-6414Kzwqyfk7567758 2.16840.1.687872.3.579.2.29372-99-6885Wtbnmnw2471352 2.0.1.777579.3.579.2.79651-45-0572Ptsnjnf78485006 2.840.1.885915.3.579.2.588394-28-6448Gpwekdg87375451 2..1.827098.3.57[id number] 2.0.1.105684.3.579.2.90552-56-8343Taocbsq60087452 2..1.193972.3.579.2.71784-97-2002Okxaetz94779575 2..1.101203.3.57[id number] 2.0.1.089518.3.579.2.81963-78-2247Zuqddsa96746494 2..1.620245.3.579.2.66718-68-9162Dqwvviv48262556 2..1.611905.3.579.[id number] 2.0.1.032601.3.579.2.39948-50-6849Yypsxqy85820106 2.840.1.726212.3.579.2.53935-10-2048Icuetvv45959121 2.840.1.898875.3.579.2.76095-83-3377Bflzdbo59993860 2.16.840.1.911580.3.579.2.56233-59-2528Dobvmfs43874655 2.16840.1.677270.3.579.2.58943-55-6964Vtghpiy65759406 2.16.840.1.929870.3.579.2.51547-33-8816Ilvexeq56825049 2.16.840.1.697792.3.579.2.76967-59-0265Olccjwa94263152 2.16840.1.324535.3.579.2.01011-07-8889Lkhcxff90730792 2.16840.1.917784.3.579.2.69774-95-7124Etulrhk22449373 2.840.1.869218.3.579.2.54275-11-0030Lieckgc7849391 2.840.1.689789.3.579.2.213291-04-8126Crgyxhh98372847 2.16840.1.410834.3.579.2.663485-20-5134Hvpcmlc98112711 2.840.1.468400.3.579.2.205925-15-9629Urcqiqc4100403 2.840.1.523268.3.57[id number] 2.16840.1.886241.3.57[id number] 2.16840.1.852533.3.57[id number] 2.16840.1.575384.3.57[id number] 2..0.1.092221.3.57[id number] 2..840.1.194879.3.57[id number] 2..840.1.896[id number] 2.16.840.1.6[id number] 2.16.840.1.379554.3.579.2.531 [id number] 2.16.840.1.8[id number] 2..840.1.528789.3.579.2.531 Social History DateTypeDetailFacilityTobacco smoking status NHISUnknown if ever smokedUniversity Hospitals Lake [facility] CtrStart: 59-40-0533Dcq [facility] 12[facility]14[facility]2020 End: 36-74-1694Eemjuun smoking status NHISNever smoked tobacco (finding) [facility] CtrStart: 05-25-2023 End: 10-02-2919Mlmxflyu useCaffeine use-[facility] DO Work Phone: Comment on above:Small cup coffee, daily 1 Soda, daily;Small cup coffee, occasional;Start: 05-25-2023 End: 65-64-3002Wpk Assigned At [facility] [employer] Other Start: 05-25-2023 End: 09-35-8704Gdzzczy use and exposureSmokeless tobacco non-userUnSelect [facility] Work Phone: Start: 05-25-2023 End: 00-30-3863Cvxhyii intakeLifetime non-drinker (finding)[facility] Work Phone: Start: 21-37-3410Vrf Assigned At BirthNot on file [facility] Work Phone: Start: 05-15-2023 End: 37-61-9659Nmthgmme to SARS-CoV-2 (event)Not sureUnSelect Medical Specialty Hospital - YoungstownStart: 07-16-2022 End: 94-01-4236Hgxdtvi smoking statusNeverGeneral Surgery BellevueStart: 12-17-2023 End: 69-06-0926Isniqorp to SARS-CoV-2 (event)Unable to assessUnSelect Medical Specialty Hospital - YoungstownTobridgeport hospital smoking status NHISTobacco smoking consumption unknownTOOELE VALLEY [facility] HealthcareStart: 10-10-2024 End: 75-10-1938QhbHatj (finding)[facility] Procedure CodeEquipment CodeEquipment Original TextEquipment IdentifierDates Capsule endoscopy, for patency of lumen evaluationVideo capsule endoscopy system ()[id number] FDAStart: 59-13-8270TNTMNOFU HERNIA REPAIR ADULT JUAN CHATMAN, Jamel Mast 10/09/23 Non Biological Other {[id number]{[id number] FDAStart: 10-09-2023 27mm Watchman Flx Left Atrial Appendage Closure Device With Delivery System [id number]: 02-09-2024 Goals DatePatient GoalDesired Activity/State Functional Status IjoeQaxmxisuwrFyztntZetruinw37-34-5269Pzazexsbzc rdnegu36/56 05/19/2025 4:37 PM EDT Xochitl Fisher LPN [facility] Work Phone: [phone]) 507-996609-121400-32-7829Fidro signs76 05/19/2025 4:07 PM EDT Saqib Cardenas, CAUnSelect Medical Special[facility] [place] Work Phone: 1(715) 656-623809-730059-20-1195Npcdnjhubl statusUnSelect Medical [facility] [place]09-29-2025Un[facility] Work Phone: [phone]) [phone]jownyj StatusNoGlenbeigh Hospital10-30-2024Functional StatusGlenbeigh Hospital01-11-2024 Functional StatusN/AFCleveland Clinic [facility] [place] 16-82-4400Dclelzdxse StatusN/AFisher [facility] Orthopaedic InstituteFbtxej78-65-4004Odlkliprjp StatusN/AGeneral Surgery [place] Clinical Notes 10-19-2020 to 05-19-2025 Note Date & LiksUippJrexaqtw54-54-1159 History of Present illness Narrative* Viki Cooney MD - 05/19/2025 3:30 PM EDT Images from the original note were not included. Chief Complaint: Chief Complaint Patient presents with Follow-up 6 months Chronic systolic congestive heart failure, NYHA class 2 (Multi) Deaf and mute couple is accompanied by language interpreter. Patient has nonischemic cardiomyopathy probablytachycardia mediated permanent atrial fibrillation on long-term anticoagulation with warfarin history of Watchman device followed by cardioembolic stroke from which he completely or almost completelyrecovered, and has been on warfarin since. Subjective : Review of Systems reports that patient takes 3 naps a day. He is however up and about in between the naps. In the morning he says he gets lightheaded after he takes his medications. He has not fallen. Uses cane as ambulatory device. Interval review of systems is negative for chest discomfort pressure tightness heaviness palpitations orthopnea paroxysmal nocturnal dyspnea dependent edema or claudication TIA or CVA type symptoms or bleeding diathesis History so Far : Chest pain (786.50) (R07.9) Patient indicates discomfort across the anterior chest wall, details very difficult to ascertain. Mild CAD (414.00) (I25.10) December 2017 cardiac cath Mid LAD 30% Proximal circumflex 30% RCA nondominant Echo prior to cath LVEF 25% October 2020 perfusion study fixed inferior defect Non-ischemic cardiomyopathy (425.4) (I42.8) 2017 EF 25% February 2019 echo LVEF 45 to 50% October 2020 MPI LVEF 49% He has been maintained on Coreg and lisinopril since December 2017. Presents today off medication with addition of midodrine. I cannot elicit any type of orthopnea or PND, no dyspnea on exertion ambulating from exam room to front of office Persistent atrial fibrillation (427.31) (I48.19) EKG in office normal sinus rhythm on amiodarone 200 mg daily, QTC 450 November 2020 cardioversion Anticoagulated (V58.61) (Z79.01) CHADS VASc 5 High risk medication use (V58.69) (Z79.899) Amiodarone start date March 2018 Amio was discontinued because patient had very wobbly wide-based gait, and was falling frequently, I could not exclude Amio side effect. 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 Lexiscan Myoview July 2022-normal perfusion LVEF 47% with mild global hypokinesis transient ischemic dilatation 1.01 which is normal Underwent left atrial appendage closure using 27 mm Watchman device February 09 2024, at which time anticoagulation was discontinued. CT watchman protocol with contrast May 2024-device related thrombus on the atrial side of the device measuring up to 15 mm with irregularity significant right atrial dilatation no pericardial effusion. 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 Echocardiogram May 2024-LVEF 35 to 40% global hypokinesis mild to moderate right atrial enlargement mild mitral regurgitation pulmonary hypertension RVSP 40 to 45 mmHg severely dilated left atrium no atrial septal defect mild mitral regurgitation trace tricuspid regurgitation no pericardial effusion aortic root size normal left atrial volume index 47.3 mL/m LV end-systolic diameter 4.2 cm Moderate-sized hiatal hernia Objective Wt Readings from Last 3 Encounters: 05/19/25 89.8 kg (198 lb) 10/14/24 88.9 kg (196 lb) 07/15/24 88.3 kg (194 lb 9.6 oz) Vitals: 05/19/25 1607 05/19/25 1637 BP: 114/80 92/56 BP Location: Left arm Right arm Patient Position: Sitting Standing Pulse: 76 Weight: 89.8 kg (198 lb) Height: 1.702 m (5' 7 ) Physical Exam: Patient is deaf and mute GENERAL APPEARANCE: in no acute distress. CHEST: Symmetric and non-tender. INTEGUMENT: Skin warm and dry HEENT: No gross abnormalities identified.No pallor or scleral icterus. NECK: Supple, no JVD, no bruit. NEURO/PSHCY: Alert and oriented x3; appropriate behavior and responses and responses LUNGS: Clear to auscultation bilaterally; normal respiratory effort. HEART: Rate and rhythm irregular with no evident murmur; no gallop appreciated. ABDOMEN: Soft, non tender. MUSCULOSKELETAL: No gross deformities. EXTREMITIES: Warm There is no edema noted. Uses cane as ambulatory aid Meds: Current Outpatient Medications Medication Instructions citalopram (CELEXA) 10 mg, Daily ferrous sulfate 325 (65 Fe) MG tablet 65 mg of elemental iron, 2 times daily finasteride (Proscar) 5 mg tablet 1 tablet, Daily levothyroxine (Synthroid, Levoxyl) 75 mcg tablet 1 tablet, Daily multivitamin tablet 1 tablet, Daily pantoprazole (ProtoNix) 40 mg EC tablet 1 tablet, Daily simvastatin (ZOCOR) 20 mg, oral, Daily tamsulosin (Flomax) 0.4 mg 24 hr capsule 1 capsule, Daily warfarin (Coumadin) 7.5 mg tablet 1 tablet, Daily (0630) Allergies: Patient has no known allergies. LABS: Testing Reviewed Labs Most recent laboratory data from September 2024 was reviewed, hemoglobin 15.6 hematocrit 45.6 BUN 13creatinine 1.36 GFR 53 sodium 139 potassium 4.7 Reviewed all available pertinent laboratory data and diagnostic testing results that occurred afterthe last office visit with me Assessment: 1. Non-ischemic cardiomyopathy (Multi) Follow Up In Cardiology 2. Presence of Watchman left atrial appendage closure device 3. Anticoagulated 4. Chronic systolic congestive heart failure, NYHA class 2 (Multi) Follow Up In Cardiology 5. Mixed hyperlipidemia simvastatin (Zocor) 20 mg tablet 6. Dizziness 7. Use of cane as ambulatory aid 8. Deaf mutism, congenital 9. Never smoked tobacco 10. Body mass index (BMI) of 31.0 to 31.9 in adult 11. Benign prostatic hyperplasia, unspecified whether lower urinary tract symptoms present Clinical Decision Making: Mildly orthostatic in office with upright blood pressure in the 90s. Due to arterial hypotension that is symptomatic, cannot use guideline directed medical therapy for chronic systolic left heart failure. Permanent atrial fibrillation Not a candidate for Farxiga or Jardiance because of low blood pressure and also because of tendencyfor urinary infections Not a candidate for ProAmatine because patient is already on medications for BPH Follow up : 1 year per patient request IXochitl LPN am scribing for, and in the presence of Dr. Viki Cooney MD, FACC. I, Dr. Viki Cooney MD, FACC, personally performed the services described in the documentation as scribed by Xochitl Borden LPN in my presence, and confirm it is both accurate and complete. documented in this encounterPark[facility] Work Phone: [phone] 484-800409-29-2025 Instructions* Patient Instructions* Xochitl Fisher LPN - 05/19/2025 3:30 PM EDT Please bring all medicines, vitamins, and herbal supplements with you when you come to the office. Prescriptions will not be filled unless you are compliant with your follow up appointments or have a follow up appointment scheduled as per instruction of your physician. Refills should be requested at the time of your visit. BMI was above normal measurement. Current weight: 89.8 kg (198 lb) Weight change since last visit (-) denotes wt loss 2 lbs Weight loss needed to achieve BMI 25: 38.7 Lbs Weight loss needed to achieve BMI 30: 6.9 Lbs Provided instructions on dietary changes Provided instructions on exercise. documented in this encounterPark[facility] Work Phone: [phone] 184-955402-24-2025 History of Present illness Narrative* Viki Cooney MD - 10/14/2024 1:00 PM EST Most recently seen June 2024. Subjective : Accompanied by to the office. Straightedge Worker is available. Interval review of systems is negativefor chest discomfort pressure tightness heaviness palpitations lightheadedness orthopnea paroxysmalnocturnal dyspnea dependent edema or claudication TIA or CVA type symptoms or bleeding diathesis No falls, no bleeding. Has recovered almost all of the strength that he lost at the time of his stroke. 12 point ROS is negative or non contributory except as noted. History so Far : Chest pain (786.50) (R07.9) Patient indicates discomfort across the anterior chest wall, details very difficult to ascertain. Mild CAD (414.00) (I25.10) December 2017 cardiac cath Mid LAD 30% Proximal circumflex 30% RCA nondominant Echo prior to cath LVEF 25% October 2020 perfusion study fixed inferior defect Non-ischemic cardiomyopathy (425.4) (I42.8) 2017 EF 25% February 2019 echo LVEF 45 to 50% October 2020 MPI LVEF 49% He has been maintained on Coreg and lisinopril since December 2017. Presents today off medication with addition of midodrine. I cannot elicit any type of orthopnea or PND, no dyspnea on exertion ambulating from exam room to front of office Persistent atrial fibrillation (427.31) (I48.19) EKG in office normal sinus rhythm on amiodarone 200 mg daily, QTC 450 November 2020 cardioversion Anticoagulated (V58.61) (Z79.01) CHADS VASc 5 High risk medication use (V58.69) (Z79.899) Amiodarone start date March 2018 Amio was discontinued because patient had very wobbly wide-based gait, and was falling frequently, I could not exclude Amio side effect. 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 LeaderNationiscan Myoview July 2022-normal perfusion LVEF 47% with mild global hypokinesis transient ischemic dilatation 1.01 which is normal Underwent left atrial appendage closure using 27 mm Watchman device February 09 2024, at which time anticoagulation was discontinued. CT watchman protocol with contrast May 2024-device related thrombus on the atrial side of the device measuring up to 15 mm with irregularity significant right atrial dilatation no pericardial effusion. 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 Echocardiogram May 2024-LVEF 35 to 40% global hypokinesis mild to moderate right atrial enlargement mild mitral regurgitation pulmonary hypertension RVSP 40 to 45 mmHg severely dilated left atrium no atrial septal defect mild mitral regurgitation trace tricuspid regurgitation no pericardial effusion aortic root size normal left atrial volume index 47.3 mL/m LV end-systolic diameter 4.2 cm Moderate-sized hiatal hernia Objective Wt Readings from Last 3 Encounters: 10/14/24 88.9 kg (196 lb) 07/15/24 88.3 kg (194 lb 9.6 oz) 03/04/24 88.5 kg (195 lb 3.2 oz) Vitals: 10/14/24 1329 BP: 114/70 BP Location: Left arm Patient Position: Sitting Pulse: 60 Weight: 88.9 kg (196 lb) Height: 1.702 m (5' 7 ) Physical Exam: GENERAL APPEARANCE: in no acute distress. CHEST: Symmetric and non-tender. INTEGUMENT: Skin warm and dry HEENT: No gross abnormalities identified.No pallor or scleral icterus. NECK: Supple, no JVD, no bruit. NEURO/PSHCY: Alert and oriented x3; appropriate behavior and responses and responses I was not ableto appreciate any focal deficits. LUNGS: Clear to auscultation bilaterally; normal respiratory effort. HEART: Rate and rhythm regular with no evident murmur; no gallop appreciated. ABDOMEN: Soft, non tender. MUSCULOSKELETAL: No gross deformities. EXTREMITIES: Warm There is no edema noted. Meds: Current Outpatient Medications Medication Instructions citalopram (CELEXA) 10 mg, Daily ferrous sulfate 325 (65 Fe) MG tablet 65 mg of iron, 2 times daily finasteride (Proscar) 5 mg tablet 1 tablet, Daily levothyroxine (Synthroid, Levoxyl) 75 mcg tablet 1 tablet, Daily multivitamin tablet 1 tablet, Daily pantoprazole (ProtoNix) 40 mg EC tablet 1 tablet, Daily simvastatin (ZOCOR) 20 mg, oral, Daily tamsulosin (Flomax) 0.4 mg 24 hr capsule 1 capsule, Daily warfarin (Coumadin) 7.5 mg tablet 1 tablet, Daily (30) No Known Allergies LABS: Lipids: No results found for: CHOL No results found for: HDL No results found for: LDLCALC No results found for: TRIG No components found for: CHOLHDL A1C No results found for: HGBA1C CBC 10/09/2024-hemoglobin 15.6 hematocrit 45.7 platelets 231 sodium 139 potassium 4.1 BUN 13 creatinine 1.36 GFR 53 liver enzymes normal GFR was 45 in May 2024 Patient Active Problem List Diagnosis Date Noted CVA (cerebral vascular accident) (Multi) 07/15/2024 Presence of Watchman left atrial appendage closure device 03/04/2024 Deaf mutism, congenital 12/08/2023 Never smoked tobacco 12/04/2023 BMI 30.0-30.9,adult 12/04/2023 Encounter to discuss test results 05/25/2023 Chest pain 05/24/2023 Mild CAD 05/24/2023 Mixed hyperlipidemia 05/24/2023 Non-ischemic cardiomyopathy (Multi) 05/24/2023 Sympathotonic orthostatic hypotension 05/24/2023 BPH (benign prostatic hyperplasia) 05/24/2023 CHF (congestive heart failure), NYHA class II 05/24/2023 Diarrhea 05/24/2023 Dizziness 05/24/2023 First degree AV block 05/24/2023 Gait disturbance 05/24/2023 Risk for falls 05/24/2023 Shortness of breath 05/24/2023 Stage 3a chronic kidney disease (Multi) 05/24/2023 Tremor 05/24/2023 Atrial fibrillation (Multi) 01/09/2024 Assessment: 1. Non-ischemic cardiomyopathy (Multi) Follow Up In Cardiology Follow Up In Cardiology Comprehensive Metabolic Panel CBC Comprehensive Metabolic Panel CBC 2. Chronic systolic congestive heart failure, NYHA class 2 Follow Up In Cardiology 3. Persistent atrial fibrillation (Multi) Comprehensive Metabolic Panel CBC Comprehensive Metabolic Panel CBC 4. Cerebrovascular accident (CVA), unspecified mechanism (Multi) 5. Presence of Watchman left atrial appendage closure device 6. Stage 3a chronic kidney disease (Multi) Comprehensive Metabolic Panel CBC Comprehensive Metabolic Panel CBC 7. Deaf mutism, congenital 8. Sympathotonic orthostatic hypotension 9. Risk for falls 10. 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 He was switched from Eliquis to warfarin. He has not had any further falls. He has completely recovered with respect to his deficits from the stroke. He is not interested in pursuing another CT as recommended by Watchman recall. He says the drive to [facility] is to strenuous and anxiety provoking for him. He says he feels well and would like to stay on the current regimen. Orthostatics were not checked today, he is not reporting any symptoms of orthostatic hypotension. He does have cardiomyopathy, and as such would be a candidate for SHANIQUE inhibitor or angiotensin receptor xavier or Entresto. I suspect that these medications are not on board because of his previous orthostatic hypotension. We will initiate them or reevaluate patient at next office visit in 6 months Follow up : 6 months Provider Attestation - Scribe documentation Scribe Attestation By signing my name below, I, Liliane Paulino LPN , [place] attest that this documentation has been prepared under the direction and in the presence of Viki Cooney MD. All medical record entries made by the Scribe were at my direction and personally dictated by me. Ihave reviewed the chart and agree that the record accurately reflects my personal performance of the history, physical exam, discussion and plan. documented in this [facility] Work Phone: [phone]) 609-552002-24-2025 Instructions* Patient Instructions* Liliane Matos LPN - 10/14/2024 1:00 PM EST Please bring all medicines, vitamins, and herbal supplements with you when you come to the office. Prescriptions will not be filled unless you are compliant with your follow up appointments or have a follow up appointment scheduled as per instruction of your physician. Refills should be requested at the time of your visit. BMI was above normal measurement. Current weight: 88.9 kg (196 lb) Weight change since last visit (-) denotes wt loss 1.4 lbs Weight loss needed to achieve BMI 25: 36.7 Lbs Weight loss needed to achieve BMI 30: 4.9 Lbs Provided instructions on dietary changes. * Attachments The following attachments cannot be sent through Care Everywhere. * Heart Healthy Diet (Welsh) documented in this [facility] Work Phone: 1(178) 786-380112-09-2024 History of Present illness Narrative* NAIF Gomez - 07/29/2024 10:40 AM EST Images from the original note were not included. Subjective Ayad De La Rosa is a 78 y.o. year old male Chief Complaint Patient presents with Weakness, Gen Facial Droop No past medical history on file. No past surgical history on file. No family history on file. Social History Tobacco Use Smoking status: Never Smokeless tobacco: Never Substance Use Topics Alcohol use: Not on file Medication Documentation Review Audit Reviewed by Elaine Moses MA (Passenger Interline Clerk) on 07/29/24 at 1051 Medication Order Taking? Sig Documenting Provider Last Dose Status aspirin 81 MG EC tablet [id number] Take 1 tablet by mouth Daily Patient not taking: Reported on 07/29/2024 NAIF Gomez Active citalopram (CeleXA) 10 MG tablet [id number] Take 10 mg by mouth Daily NAIF Gomez Active Eliquis 5 MG tablet [id number] Take 5 mg by mouth Patient not taking: Reported on 07/29/2024 NAIF Gomez Active ferrous sulfate 325 (65 Fe) MG tablet [id number] Yes Take 325 mg by mouth in the morning and 325 mg in the evening. NAIF Gomez Active finasteride (Proscar) 5 MG tablet [id number] Take 5 mg by mouth Daily NAIF Gomez Active levothyroxine (Synthroid, Levoxyl) 75 MCG tablet [id number] Take 75 mcg by mouth Daily NAIF Gomez Active pantoprazole (ProtoNix) 40 MG EC tablet [id number] Yes Take 40 mg by mouth in the morning. Take before meals. NAIF Gomez Active simvastatin (Zocor) 20 MG tablet [id number] Take 1 tablet by mouth Daily NAIF Gomez Active tamsulosin (Flomax) 0.4 MG 24 hr capsule [id number] Take 0.4 mg by mouth Daily NAIF Gomez Active warfarin (Coumadin) 7.5 MG tablet [id number] Yes Take 7.5 mg by mouth 1 (one) time each day NAIF Gomez Active HPI Patient here today for a follow up from inpatient. He was [place] [facility] [place]. He reports Left sided weakness and facial droop. He states symptoms are improving. He still has some facialdroop and when he eat he will drop food out of his mouth. He has not done ST. [facility] He admits tingling in his bl feet. He admits some trouble with balance and ambulates with cane. He denies any recent falls. He is currently on Warfarin. He had to stop this for a few days due to his levels and now he is on the 3mg. He denies any other issues or concerns. ROS Review of Systems Constitutional: Negative. Respiratory: Negative for cough and shortness of breath. Cardiovascular: Negative for chest pain. Gastrointestinal: Negative for abdominal pain. Musculoskeletal: Negative for neck pain. Neurological: Positive for weakness and numbness. Objective Visit Vitals BP 128/78 Ht 5' 7 Wt 198 lb BMI 31.01 kg/m Smoking Status Never BSA 2.06 m Neurological Exam Mental Status Awake and alert. Oriented only to person, place and time. Speech: Sign language. Language is fluentwith no aphasia. Language: Sign language. Cranial Nerves CN III, IV, : Normal lids and orbits bilaterally. Pupils equal round and reactive to light bilaterally. CN VII: Right: There is no facial weakness. Left: There is no facial weakness. CN VIII: Right: Hearing is decreased. Left: Hearing is decreased. CN XI: Shoulder shrug strength is normal. CN XII: Tongue midline without atrophy or fasciculations. Coordination Mmxhls-vi-oiku, rapid alternating movements and fcds-qr-ucev normal bilaterally without dysmetria. Gait Antalgic. Motor Examination RUE Strength deltoid, biceps, triceps, wrist extensors, wrist extensors, wrist flexor, investigative reporter strength 5/5. LUE Strength deltoid, biceps, triceps, wrist extensors, wrist extensors, wrist flexor, investigative reporter strength 5-/5. RLE Strength illopsoas, quadriceps, tibialis anterior, and gastrocnemius strength 5/5. LLE Strength illopsoas, quadriceps, tibialis anterior, and gastrocnemius strength 5/5. Tone Normal tone x4 extremities. Reflexes: RUE biceps reflex 2, LUE biceps reflex 2, RLE knee reflex 1, LLE knee reflex 1, Assessment and Plan Diagnoses and all orders for this visit: Weakness of wrist - Wrist splint Weakness of left hand - Ambulatory referral to Occupational Therapy; Future Cerebrovascular accident (CVA) due to embolism of right middle cerebral artery (CMS/HCC) Patient is a 78 year old male with a past medical history including deafness, CHF, CKD, hyperlipidemia, PAF of Eliquis, who presented to [facility] 06/19/24 for left facial droop and left hemibody weakness. Communication was achieved with keyboard instrument tuner as patient and his are both deaf. He noticed left hand weakness 3 days prior to presenting when he was trying to screw in a shower head. He then developed left upper extremity hemiparesis and left facial weakness as well. He is currently treated withEliquis at home. CT brain 06/19/24 revealed no acute process. CTA of the head and neck 06/19/24 wasalso unremarkable. MRI brain 06/20/24 revealed several areas of ischemia to right frontal and rightparietal lobes. There was also susceptibility suggestive of petechial hemorrhage to the right precentral cortial area, which is new from CT the day prior. Presumed etiology was embolic as most affected region was all within right MCA territory and MCA is widely patent. Anticoagulation was held and serial CTs were followed. CT brain 06/20/24 was negative. EULALIA 06/21/24 revealed EF 35-40% with moderate to severe global hypokinesis of left ventricle, no evidence of thrombus. There was a long discussion had with patinet and via keyboard instrument tuner regarding use of antiplatelet and anticoagulation medication and the risk of recurrent stroke with holding antiplatelet or anticoagulation due to hemorrhage versus risk of worsening hemorrhage on antiplatelet medication. He did have recent Watchman placedwith reported identified clot in the atrium making him high risk for recurrent stroke. It was recommended he be placed on aspirin for 1 week then starting Coumadin for goal INR 2-3 and then stopping aspirin. He also had dark stool during his stay and GI saw the patient as well with positive stool occult blood. PPI was recommended and he is to avoid NSAIDs. He is having continued left investigative reporter weakness and has not yet done OT. He is working with Coumadin clinic. Plan: Extensive hospital records reviewed including CT scans of the brain, MRI brain, neurology consultation report, labwork, discharge summary. Continue Coumadin and working with Coumadin clinic for INR stability. I will send order [place] [facility] [place] per his request for investigative reporter weakness and wrist pain. He denies radicular symptoms. We could consider EMG pending his course. He can try [facility] wrist splint to see if this helps his symptoms. Continue to follow with PCP for stroke risk factor management. Visit was performed with an language interpreter present and his was also present. I counseled the patient on stroke signs and symptoms and advised the patient to go immediately to the emergency room should these symptoms develop. The patient states understanding. Follow up in 6-8 weeks documented in this encounterWright Memorial [id number] History of Present illness Narrative* Viki Cooney MD - 07/15/2024 1:30 PM EST 6-month follow-up visit. Subjective : Accompanied by , and language interpreter, language interpreter helps to communicate. Patient was identified to have a thrombus on the atrial side of the Watchman device, and started onEliquis 5 mg p.o. twice daily for a week and then 5 mg p.o. daily. On June 19, 2024 he woke up with left-sided weakness, he could not stand, and he was dizzy. Called 911, was seen at [facility], diagnosed with stroke, in 4 days he started walking slowly, and was sent to a nursing homefor rehabilitation. Continues to have left-sided weakness, blood pressure has been running low and he has been dizzy. Uses a cane for extra support. Eliquis was discontinued and warfarin was initiated. Diovan was discontinued. Very pleasant, does not report any palpitations headache blurred vision or falls. Walking with the assistance of cane. History so Far : Chest pain (786.50) (R07.9) Patient indicates discomfort across the anterior chest wall, details very difficult to ascertain. Mild CAD (414.00) (I25.10) December 2017 cardiac cath Mid LAD 30% Proximal circumflex 30% RCA nondominant Echo prior to cath LVEF 25% October 2020 perfusion study fixed inferior defect Non-ischemic cardiomyopathy (425.4) (I42.8) 2017 EF 25% February 2019 echo LVEF 45 to 50% October 2020 MPI LVEF 49% He has been maintained on Coreg and lisinopril since December 2017. Presents today off medication with addition of midodrine. I cannot elicit any type of orthopnea or PND, no dyspnea on exertion ambulating from exam room to front of office Persistent atrial fibrillation (427.31) (I48.19) EKG in office normal sinus rhythm on amiodarone 200 mg daily, QTC 450 November 2020 cardioversion Anticoagulated (V58.61) (Z79.01) CHADS VASc 5 High risk medication use (V58.69) (Z79.899) Amiodarone start date March 2018 Amio was discontinued because patient had very wobbly wide-based gait, and was falling frequently, I could not exclude Amio side effect. 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 Lexiscan Myoview July 2022-normal perfusion LVEF 47% with mild global hypokinesis transient ischemic dilatation 1.01 which is normal Underwent left atrial appendage closure using 27 mm Watchman device February 09 2024, at which time anticoagulation was discontinued. CT watchman protocol with contrast May 2024-device related thrombus on the atrial side of the device measuring up to 15 mm with irregularity significant right atrial dilatation no pericardial effusion. 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 Echocardiogram May 2024-LVEF 35 to 40% global hypokinesis mild to moderate right atrial enlargement mild mitral regurgitation pulmonary hypertension RVSP 40 to 45 mmHg severely dilated left atrium no atrial septal defect mild mitral regurgitation trace tricuspid regurgitation no pericardial effusion aortic root size normal left atrial volume index 47.3 mL/m LV end-systolic diameter 4.2 cm Moderate-sized hiatal hernia Objective Wt Readings from Last 3 Encounters: 07/15/24 88.3 kg (194 lb 9.6 oz) 03/04/24 88.5 kg (195 lb 3.2 oz) 02/09/24 83.9 kg (185 lb) Vitals: 07/15/24 1317 BP: 116/64 BP Location: Right arm Patient Position: Sitting Pulse: 62 Weight: 88.3 kg (194 lb 9.6 oz) Height: 1.676 m (5' 6 ) Physical Exam: GENERAL APPEARANCE: in no acute distress. CHEST: Symmetric and non-tender. INTEGUMENT: Skin warm and dry HEENT: No gross abnormalities identified.No pallor or scleral icterus. NECK: Supple, no JVD, no bruit. NEURO/PSHCY: Alert and oriented x3; appropriate behavior and responses and responses left hemiparesis, probably grade 4 out of 5. LUNGS: Clear to auscultation bilaterally; normal respiratory effort. HEART: Rate and rhythm irregular with no evident murmur; no gallop appreciated. ABDOMEN: Soft, non tender. MUSCULOSKELETAL: No gross deformities. EXTREMITIES: Warm There is no edema noted. Meds: Current Outpatient Medications Medication Instructions citalopram (CELEXA) 10 mg, Daily cyanocobalamin (VITAMIN B-12) 1,000 mcg, Daily ferrous sulfate 325 (65 Fe) MG tablet 65 mg of iron, 2 times daily finasteride (Proscar) 5 mg tablet 1 tablet, Daily levothyroxine (Synthroid, Levoxyl) 75 mcg tablet 1 tablet, Daily multivitamin tablet 1 tablet, Daily pantoprazole (ProtoNix) 40 mg EC tablet 1 tablet, Daily simvastatin (ZOCOR) 20 mg, oral, Daily tamsulosin (Flomax) 0.4 mg 24 hr capsule 1 capsule, Daily warfarin (Coumadin) 7.5 mg tablet 1 tablet, Daily (629) No Known Allergies LABS: May 2024-GFR 45 BUN 16 creatinine 1.56 sodium 138 potassium 4.7 hemoglobin 15.3 hematocrit 45.3platelets 213 Patient Active Problem List Diagnosis Date Noted CVA (cerebral vascular accident) (Multi) 07/15/2024 Presence of Watchman left atrial appendage closure device 03/04/2024 Deaf mutism, congenital 12/08/2023 Falls frequently 12/08/2023 Never smoked tobacco 12/04/2023 BMI 31.0-31.9,adult 12/04/2023 Encounter to discuss test results 05/25/2023 Chest pain 05/24/2023 Mild CAD 05/24/2023 Mixed hyperlipidemia 05/24/2023 Non-ischemic cardiomyopathy (Multi) 05/24/2023 Sympathotonic orthostatic hypotension 05/24/2023 BPH (benign prostatic hyperplasia) 05/24/2023 CHF (congestive heart failure), NYHA class II 05/24/2023 Diarrhea 05/24/2023 Dizziness 05/24/2023 First degree AV block 05/24/2023 Gait disturbance 05/24/2023 Risk for falls 05/24/2023 Shortness of breath 05/24/2023 Stage 3a chronic kidney disease (Multi) 05/24/2023 Tremor 05/24/2023 Atrial fibrillation (Multi) 01/09/2024 Assessment: 1. Presence of Watchman left atrial appendage closure device 2. Cerebrovascular accident (CVA), unspecified mechanism (Multi) 3. Anticoagulated CBC CBC 4. Non-ischemic cardiomyopathy (Multi) Follow Up In Cardiology Follow Up In Cardiology Basic Metabolic Panel Basic Metabolic Panel 5. Chronic systolic congestive heart failure, NYHA class 2 Follow Up In Cardiology Basic Metabolic Panel Basic Metabolic Panel 6. Deaf mutism, congenital 7. Risk for falls 8. Stage 3a chronic kidney disease (Multi) 9. BMI 31.0-31.9,adult 10. Permanent atrial fibrillation (Multi) Clinical decision making: Patient with thromboembolic stroke with left hemiparesis, off Eliquis and on warfarin. Up until nowwas at the correction, now his warfarin monitoring will have to be transferred to the Coumadin clinic. Discussed warfarin, discussed that periodic monitoring is absolutely essential to make sure the levels are therapeutic. Patient has LV dysfunction and chronic systolic left heart failure. However he is not on guideline directed medical therapy because his blood pressure permits, and he gets symptomatic and also has orthostatic hypotension. Due to arterial hypotension valsartan 40 mg daily has also been discontinued. His QRS is not wide. He is deaf and mute. His is also deaf and mute. Lab work ordered. Challenging management issues Will update Dr. Santiago. Follow up : 3 months Provider Attestation - Scribe documentation Scribe Attestation By signing my name below, I Liliane Jefferson MOHR , Scribe attest that this documentation has been prepared under the direction and in the presence of Viki Cooney MD. All medical record entries made by the Scribe were at my direction and personally dictated by me. Ihave reviewed the chart and agree that the record accurately reflects my personal performance of the history, physical exam, discussion and plan. documented in this encounterPark[facility] Work Phone: 1(114) 409-610011-25-2024 Instructions* Patient Instructions* Liliane Matos LPN - 07/15/2024 1:30 PM EST Please bring all medicines, vitamins, and herbal supplements with you when you come to the office. Prescriptions will not be filled unless you are compliant with your follow up appointments or have a follow up appointment scheduled as per instruction of your physician. Refills should be requested at the time of your visit. BMI was above normal measurement. Current weight: 88.3 kg (194 lb 9.6 oz) Weight change since last visit (-) denotes wt loss -0.6 lbs Weight loss needed to achieve BMI 25: 40 Lbs Weight loss needed to achieve BMI 30: 9.1 Lbs Provided instructions on dietary changes Provided instructions on exercise. Need to determine where coumadin has been managed documented in this encounterPark[facility] Work Phone: 1(919) 724-136611-11-2024 NoteProgress Note-Physician Assessment/Plan PLAN: 1. Acute ischemic stroke (I63.9: Cerebral infarction, unspecified) +embolic CVA MRI brain shows: Acute/subacute ischemia in the right frontal and right parietal lobes. Possible interval development of parenchymal hemorrhage. Consult neurology appreciated. 06/[address] head no acute process noted. Echo w.EULALIA 06/21--EF 35-40%, moderate to severe global hypokinesis of LV, no evidence of thrombus, severe spontaneous echo contrast in the left atrial appendage, Watchman device present not well-visualized. No gross evidence of HARRIS device leak or device thrombus. IAS intact. 06/24 CT head pending in AM. 2. Intraparenchymal hemorrhage of brain (I61.9: Nontraumatic intracerebral hemorrhage, unspecified) See #1 MRI brain -CT head: no acute process, + chronic findings -CTA head/neck: no acute process -Consult neurology appreciated.: Discussion w/: initiate ASA 81mg in AM. Obtain CT head on 06/24; If pt tolerates ASA w/any further hemorrhage will continue ASA and initiate Coumadin or/Eliquis in 1 week. If Coumadin will continue ASA w/Coumadin until INR therapeutic then DC ASA at that point. Pt will need freq eval of INR --set up w/Coumadin Clinic /PCP to follow if Coumadin. Case management to eval cost of Eliquis. 3. Dizziness on standing (R42: Dizziness and giddiness) Secondary to #1,2 Fall precautions 4. Black stool (K92.1: Melena) Pt. states stool is black for the last week -Is on ferrous sulfate 2/2 anemia -> H&H is stable -Hemoccult stool - neg Consult GI -avoid NSAIDs and blood thinners unless otherwise indicated defer scope d/t #1,2 for now. f/u opt. 5. Paroxysmal atrial fibrillation (I48.0: Paroxysmal atrial fibrillation) Per neuro who spoke w/ family + watchman's device - however in post cardiac f/u they were told cardio was unhappy with the placement.---Family reports hx. of cardiac thrombus Echo -as above Apixaban on hold secondary to #2, see plan 6. Coronary atherosclerosis (I25.10: Atherosclerotic heart disease of [place] coronary artery without angina pectoris) Statin Apixaban on hold for now. 7. HTN (hypertension) (I10: Essential (primary) hypertension) Diet controlled, no longer taking valsartan 8. Hyperlipidemia (E78.5: Hyperlipidemia, unspecified) Statin 9. Deaf b/l needs sign language (H91.90: Unspecified hearing loss, unspecified ear) Ipad sign language for all interactions 10. CKD (chronic kidney disease) stage 3, GFR 30-59 ml/min (N18.3: Chronic kidney disease, stage 3 (moderate)) At baseline CR level 1.6-1.8 Trend labs. 11. Hypothyroidism (E03.9: Hypothyroidism, unspecified) Levothyroxine 12. Chronic GERD (K21.9: Gastro-esophageal reflux disease without esophagitis) PPI 13. On deep vein thrombosis (DVT) prophylaxis (Z79.899: Other pearl stringer (current) drug therapy) -Avoid chemical DVTp as above -Hold apixaban as above -SCDs, early ambulation Subjective Pt is seen while sitting up in recliner. His is in the room and step son is on FaceTime -communication was done with [employer] signal worker helper. Pt complaining of left wrist pain. No injury but states he is having difficulty moving his wrist today. Wanting to have it xray as he has broken it multiple times before and feels like it did then. Updated family on POC in which pt is now on ASA and pending CT of the brain in the AM. to assess for bleeding. If pt bleed improves or resolved will continue ASA. Pt then to start Eliquis/Coumadin atthat time in 1 week. to speak to the family in the AM. states she will be here. Objective Vitals & Measurements T: 36.6 ???C(Axillary) TMIN: 36.2 ???C(Oral) TMAX: 36.9 ???C(Axillary) HR: 63(Peripheral) RR: 17 BP: 125/75 SpO2: 97% WT: 90.2 kg Intake & Output This visit (24 hour periods starting at 07:00 EST) 06/23/24 * 06/22/24 06/21/24 Total Summary Intake mL -- 240 -- Output mL -- -- -- Fluid Balance -- 240 -- Intake (1) Oral Intake mL -- 240 -- Total -- 240 -- Output (0) Counts (2) Stool Count -- 1 -- Urine Count -- 4 -- * This column has not completed the indicated time period. Indicates a 25 hour day. Physical Exam General: , NAD Head: Normocephalic/atraumatic Eyes: Pupils equal, round, and reactive to light 3mm. Conjunctivae and sclerae normal, and extraocular movements intact HEENT: + deaf, Mucous membrane moist. Tongue normal Neck: Trachea midline, neck supple, Chest: No chest wall deformity, no chest wall tenderness Lungs: CTA medeiros, no cough Cardio: Normal rate, currently in Aflutter; no edema. Pulses: Normal capillary refill Abdomen: Soft, non-distended, non-tender, normal BS Musculoskeletal: No deformity or scoliosis noted. Normal ROM for age. Integumentary: Warm, dry, Extremity: No clubbing, pain to left wrist w/ROM. Neurologic: Alert, oriented x 4, follows commands, pt is deaf; (more content not included)...[facility] HospitalComment on above:Result Comment: Electronically Signed By: Julisa FIGUEROA\.br\Date and Time Signed: 06/23/24 14:24 EST\.br\Electronically Co-Signed By: Forest Zavala DO\.br\Date and Time Co-Signed:07/01/24 08:50 [id number] NoteDischarge Summary Admission and Discharge Information Admit Date/Time:06/19/2024 22:41 Admitting Physician - Yoselin MCNAIR DO Consulting Physician - Adebayo Mendoza MD Admitting Diagnoses: Discharge Order Date Discharge Patient - Ordered -- 06/24/24 11:55:00 EST, TO SNF Discharge Diagnoses 1. Acute ischemic stroke, 06/19/2024 2. Intraparenchymal hemorrhage of brain, 06/22/2024 3. Dizziness on standing, 06/20/2024 4. Black stool, 06/20/2024 5. Paroxysmal atrial fibrillation, 06/20/2024 6. Coronary atherosclerosis, 06/20/2024 7. HTN (hypertension), 06/20/2024 8. Hyperlipidemia, 06/20/2024 9. Deaf b/l needs sign language, 06/20/2024 10. CKD (chronic kidney disease) stage 3, GFR 30-59 ml/min, 06/20/2024 11. Hypothyroidism, 06/20/2024 12. Chronic GERD, 06/20/2024 13. On deep vein thrombosis (DVT) prophylaxis, 06/20/2024 Dizziness, 06/19/2024 Facial droop, 06/19/2024 Potential stroke, 06/19/2024 Weakness or fatigue, 06/19/2024 Procedure History EULALIA procedure (06/21/2024), Repair of left inguinal hernia (10/09/2023), Colonoscopy (07/21/2023), Esophagogastroduodenoscopy (07/21/2023), Cystoscopy (06/05/2018), Right hemicolectomy (01/19/2016), Colonoscopy (12/30/2015), TRUS (transrectal ultrasound) guided cryoablation of prostate (01/13/2015), Cardiac catheterization, combined right and left heart, Cataract extraction and IOL (implantation of intraocular lens). Hospital Course 78 year old deaf male who presented to the hospital following episodes of ongoing left sided weakness, numbness/tingling. Pt w/hx of PAF on Eliquis. Pt was taken for immediate CT head and CTA of the head and neck which were all non acute. Consultation was placed to neurology and pt underwent a MRI of the brain at that time which showed an acute/subacute ischemia in the right frontal andright parietal lobes. Possible interval development of parenchymal hemorrhage. Pt underwent a repeat CT of the head on 1030 which also was negative. Pt also underwent an echocardiogram w/EULALIA on 06/21 which revealed --EF 35-40%, moderate to severe global hypokinesis of LV, no evidence of thrombus, severe spontaneous echo contrast in the left atrial appendage, Watchman device present not well-visualized. No gross evidence of HARRIS device leak or device thrombus. IAS intact. Pt was again seen by Dr.Stephen Mendoza neurologist who had a long discussion with pt, and son re: use of antiplateletmedication and anticoagulation. the risks of recurrent stroke with holding antiplatelet or anticoagulation due to hemorrhage versus the risk of worsening hemorrhage on antiplatelet medication. Discussion was performed through a design and sales consultant. The patient does have recent Watchman placedwith reported identified clot in the atrium making him high risk for recurrent stroke. Neurology recommend aspirin 81 mg daily for 1 week then starting the patient on Coumadin and once therapeutic between 2-3 INR stopping the aspirin. The pt and family were educated that there is risk of worsening hemorrhage. Patient's repeat CT scan today was reviewed by and was noted to be stable and revealed normal progression of the patient's stroke with no worsening hemorrhage. Due to the high risk of recurrent stroke neurology recommended antiplatelet medication as discussed above. Pt was seen by GI during admission due to dark stool and positive stool for occult w/possible GI bleed. Pt was seen by who recommended PPI BID, Avoid NSAIDsand to defer any scopes at this time due to recent stroke. Will see outpatient as no acute blood loss is noted and pt is stable. Today on exam, pt is doing well. Vitals and labs are stable. Pt was cleared by neurology for discharge home/SNF when medically stable. Case discussed with who is in agreement with current discharge plan. Pt will discharge to SNF today in stable condition. The plan is for pt to continue ASA until 07/01/24 --will start Coumadin and bridge with ASA until INR therapeutic 2-3. At that time ASA will be discontinued. Close monitoring of INR/bleeding s/sx are of utmost importance. Recommend that pt follow Coumadin Clinic. As the individual???s Attending advance health care practitioner (Julisa Silva) , I certify the individual: is being discharged to a nursing facility directly from a hospital after receiving acute patient care at the hospital; and requires nursing facility services for the condition for whichhe/she received care in the hospital; and as the Attending practitioner, I certify at this time, nolater than the date of discharge, that the individual requires fewer than 30 days of nursing facility services. Services Consulted Consult to Gastroenterology - Ordered -- 06/21/24 9:58:00 EDT, Downtrending hgb, + occult stool, Consult and Co-manage Consult to Neurology - Ordered -- 06/20/24 0:52:00 EDT, Stroke, Consult and Co-manage Consult to Tele-Neurology - Ordered -- 06/19/24 21:56:00 EDT, Strok (more content not included)...[facility] HospitalComment on above:Result Comment: Electronically Signed By: Julisa FIGUEROA\.br\Date and Time Signed: 06/24/24 14:18 EST\.br\Electronically Co-Signed By: Juan Ramon Abernathy MD\.br\Date and Time Co-Signed:06/25/24 15:32 [id number] Evaluation + Plan noteExtracted from: Title:APSO Note-neurologyAuthor:Mery DAILEY, RonenoleDate:06/24/24 ASSESSMENT: 78-year-old deaf right-handed man. Acute ischemic stroke, with several areas of ischemia in the right cerebral hemisphere. The largestarea of ischemia involves the right precentral and postcentral central sulcus cortex and subcortical areas, there is a small amount of ischemia in the right frontal lobe cortex/subcortex, and a tiny focus in the right parietal lobe white matter. There is susceptibility suggestive of petechial hemorrhage to the right precentral cortical hand knob area, with the blood product being scant enough that there is no associated hyperdensity on a follow-up CT. He has left hemiparesis (and sensory loss) affecting left upper extremity more so than left face more so than left lower extremity. In the left upper extremity his weakness is predominantly distal, worst in the hand. It does seem to be gradually improving. As for etiology for this, it looks embolic within the right cerebral hemisphere, seemingly all within the right MCA, but the MCA looks widely patent, as does the entire intracranial extracranial arterial circulation. So I presume this is cardioembolic in origin related to his atrial fibrillation, despite the anticoagulation. He had a Watchman device placed and mention that there might have been some atrial appendage thrombus seen. A transthoracic echocardiogram performed yesterday did not show any thrombus. PLAN: I had a long discussion with the patient's and son regarding use of antiplatelet medication and anticoagulation. I discussed the risks of recurrent stroke with holding antiplatelet or anticoagulation due to hemorrhage versus the risk of worsening hemorrhage on antiplatelet medication. Discussion was performed through a design and sales consultant. I discussed the case verbally with the patient's son. All reports understanding of the discussion. I discussed that there is no scenario without risk. The patient does have recent Watchman placed with reported identified clot in the atrium makingand high risk for recurrent stroke. I recommend aspirin 81 mg daily for 1 week then starting the patient on Coumadin and once therapeutic between 2-3 INR stopping the aspirin. There is risk of worsening hemorrhage. Patient's repeat CT scan today was reviewed personally and is stable and reveals normal progression of the patient's stroke with no worsening hemorrhage. Due to the high risk of recurrent stroke I do recommend antiplatelet medication as discussed. I will continue to follow the patient clinically while in the hospital and will see him in the outpatient neurology clinic within 1 week. I counseled the patient and his family on returning to the hospital should he develop any new or worsening neurological symptoms, headaches, nausea, or vomiting. 1. Acute ischemic stroke (I63.9: Cerebral infarction, unspecified) 2. Intraparenchymal hemorrhage of brain (I61.9: Nontraumatic intracerebral hemorrhage, unspecified) 3. Dizziness on standing (R42: Dizziness and giddiness) 4. Black stool (K92.1: Melena) 5. Paroxysmal atrial fibrillation (I48.0: Paroxysmal atrial fibrillation) 6. Coronary atherosclerosis (I25.10: Atherosclerotic heart disease of [place] coronary artery without angina pectoris) 7. HTN (hypertension) (I10: Essential (primary) hypertension) 8. Hyperlipidemia (E78.5: Hyperlipidemia, unspecified) 9. Deaf b/l needs sign language (H91.90: Unspecified hearing loss, unspecified ear) 10. CKD (chronic kidney disease) stage 3, GFR 30-59 ml/min (N18.3: Chronic kidney disease, stage 3 (moderate)) 11. Hypothyroidism (E03.9: Hypothyroidism, unspecified) 12. Chronic GERD (K21.9: Gastro-esophageal reflux disease without esophagitis) 13. On deep vein thrombosis (DVT) prophylaxis (Z79.899: Other intermediate (current) drug therapy) Extracted from:Title:APSO NoteAuthor:Veronique FIGUEROA:06/22/24 PLAN: 1. Acute ischemic stroke (I63.9: Cerebral infarction, unspecified) +embolic CVA MRI brain shows: Acute/subacute ischemia in the right frontal and right parietal lobes. Possible interval development of parenchymal hemorrhage. Consult neurology appreciated. 06/[address] head no acute process noted. Echo w.EULALIA 06/21--EF 35-40%, moderate to severe global hypokinesis of LV, no evidence of thrombus, severe spontaneous echo contrast in the left atrial appendage, Watchman device present not well-visualized. No gross evidence of HARRIS device leak or device thrombus. IAS intact. Ordered: [facility] Hospital Care/Day High 50 Minutes [id number] 2. Intraparenchymal hemorrhage of brain (I61.9: Nontraumatic intracerebral hemorrhage, unspecified) See #1 MRI brain -CT head: no acute process, + chronic findings -CTA head/neck: no acute process -Consult neurology appreciated.: Discussion w/: initiate ASA 81mg in AM. Obtain CT head on 06/24; If pt tolerates ASA w/any further hemorrhage will continue ASA and initiate Coumadin or/Eliquis in 1 week. If Coumadin will continue ASA w/Coumadin until INR therapeutic then DC ASA at that point. Pt will need freq eval of INR --set up w/Coumadin Clinic /PCP to follow if Coumadin. Case management to eval cost of Eliquis. Ordered: [facility] Hospital Care/Day High 50 Minutes [id number] 3. Dizziness on standing (R42: Dizziness and giddiness) Secondary to #1,2 Fall precautions Ordered: [facility] Hospital Care/Day High 50 Minutes [id number] 4. Black stool (K92.1: Melena) Pt. states stool is black for the last week -Is on ferrous sulfate 2/2 anemia -> H&H is stable -Hemoccult stool - neg Consult GI -avoid NSAIDs and blood thinners unless otherwise indicated defer scope d/t #1,2 for now. f/u opt. Ordered: [facility] Hospital Care/Day High 50 Minutes [id number] 5. Paroxysmal atrial fibrillation (I48.0: Paroxysmal atrial fibrillation) Per neuro who spoke w/ family + watchman's device - however in post cardiac f/u they were told cardio was unhappy with the placement.---Family reports hx. of cardiac thrombus Echo -as above Apixaban on hold secondary to #2, see plan Ordered: [facility] Hospital Care/Day High 50 Minutes [id number] 6. Coronary atherosclerosis (I25.10: Atherosclerotic heart disease of [place] coronary artery without angina pectoris) Statin Apixaban on hold for now. 7. HTN (hypertension) (I10: Essential (primary) hypertension) Diet controlled, no longer taking valsartan 8. Hyperlipidemia (E78.5: Hyperlipidemia, unspecified) Statin 9. Deaf b/l needs sign language (H91.90: Unspecified hearing loss, unspecified ear) Ipad sign language for all interactions 10. CKD (chronic kidney disease) stage 3, GFR 30-59 ml/min (N18.3: Chronic kidney disease, stage 3 (moderate)) At baseline CR level 1.6-1.8 Trend labs. 11. Hypothyroidism (E03.9: Hypothyroidism, unspecified) Levothyroxine 12. Chronic GERD (K21.9: Gastro-esophageal reflux disease without esophagitis) PPI 13. On deep vein thrombosis (DVT) prophylaxis (Z79.899: Other pearl stringer (current) drug therapy) -Avoid chemical DVTp as above -Hold apixaban as above -SCDs, early ambulation Orders: aspirin, 81 mg = 1 tab(s), Tab-EC, Oral, Daily, Routine, Start date 06/23/24 9:00:00 EST, 06/22/24 12:53:00 EDT Extracted from:Title:APSO NoteAuthor:KAMALJIT SYD-, ReneeDate:06/21/24 All interactions/assessments completed w/ Ipad signal worker helper 1. Acute ischemic stroke (I63.9: Cerebral infarction, unspecified) + embolic CVA -CT head: no acute process, + chronic findings -CTA head/neck: no acute process -MRI Brain: Acute/subacute ischemia in the right frontal and right parietal lobes. Possible interval development of parenchymal hemorrhage. -Defer mgt. to neuro -Consult neuro: -06/20: Repeat CT head at 16:00 - no acute process -Echo: EF 35-40%, moderate to severe global hypokinesis of LV, no evidence of thrombus, severe spontaneousecho contrast in the left atrial appendage, Watchman device present not well-visualized. No gross evidence of HARRIS device leak or device thrombus. IAS intact. -Echo reviewed w/ Dr. Hall, cont. to hold asa/AC/chemical DVTp - will re-eval pt. in a.m. and decide on AC tx. -Keep bp < 180 2. Dizziness on standing (R42: Dizziness and giddiness) 2/2 embolic CVA -CXR: No acute process -UA - neg for infectious process -Orthostatic v.s. - not obtained yet -IV antiemetics prn -TSH level - wnl -B12 def -> supplements -Fall precautions -Neurology following 3. Black stool (K92.1: Melena) Pt. states stool is black for the last week -Is on ferrous sulfate 2/2 anemia -> H&H is stable -Hemoccult stool - neg 4. Paroxysmal atrial fibrillation (I48.0: Paroxysmal atrial fibrillation) Per neuro who spoke w/ family + watchman's device - however in post cardiac f/u they were told cardio was unhappy with the placement. -Family reports hx. of cardiac thrombus -Echo -as above -Hold apixaban as above 5. Coronary atherosclerosis (I25.10: Atherosclerotic heart disease of [place] coronary artery without angina pectoris) -Apixaban, simvastatin, 6. HTN (hypertension) (I10: Essential (primary) hypertension) -Diet controlled, no longer taking valsartan 7. Hyperlipidemia (E78.5: Hyperlipidemia, unspecified) -Statin 8. Deaf b/l needs sign language (H91.90: Unspecified hearing loss, unspecified ear) Ipad sign language for all interactions 9. CKD (chronic kidney disease) stage 3, GFR 30-59 ml/min (N18.3: Chronic kidney disease, stage 3 (moderate)) Baseline Cr - suspect 1.6 - 1.8 - no recent labs -UA - no infectious process -Trend BMP -Avoid nephrotoxic medications as much as possible -Consult nephrology: If Cr worsens 10. Hypothyroidism (E03.9: Hypothyroidism, unspecified) -Levothyroxine 11. Chronic GERD (K21.9: Gastro-esophageal reflux disease without esophagitis) -PPI 12. On deep vein thrombosis (DVT) prophylaxis (Z79.899: Other pearl stringer (current) drug therapy) -Avoid chemical DVTp as above -Hold apixaban as above -SCDs, early ambulation Orders: citalopram, 10 mg = 0.5 tab(s), Tab, Oral, Once, Stop date 06/21/24 15:31:00 EDT, NOW, Start date 06/21/24 15:31:00 EDT finasteride, 5 mg = 1 tab(s), Tab, Oral, Once, Stop date 06/21/24 15:32:00 EDT, NOW, Start date 06/21/24 15:32:00 EDT tamsulosin, 0.4 mg = 1 cap(s), Cap, Oral, Once, Stop date 06/21/24 15:32:00 EDT, NOW, Start date 06/21/24 15:32:00 EDT Basic Metabolic Panel Consult to Gastroenterology ECG 12 Lead Adult eGFR Extra Lav Tube Stool Occult Blood -Plan discussed w/ patient, nursing staff and CRM. This report was transcribed using voice recognition software. Every effort was made to ensure accuracy, however, inadvertently computerized manager custom mistakes may be present. Extracted from:Title:Procedure Note Heart & VascularAuthor:Denice CHATMAN, Floyd Coffman Date:06/21/24 1. Acute ischemic stroke (I63.9: Cerebral infarction, unspecified) 2. Dizziness on standing (R42: Dizziness and giddiness) 3. Black stool (K92.1: Melena) 4. Paroxysmal atrial fibrillation (I48.0: Paroxysmal atrial fibrillation) 5. Coronary atherosclerosis (I25.10: Atherosclerotic heart disease of [place] coronary artery without angina pectoris) 6. HTN (hypertension) (I10: Essential (primary) hypertension) 7. Hyperlipidemia (E78.5: Hyperlipidemia, unspecified) 8. Deaf b/l needs sign language (H91.90: Unspecified hearing loss, unspecified ear) 9. CKD (chronic kidney disease) stage 3, GFR 30-59 ml/min (N18.3: Chronic kidney disease, stage 3 (moderate)) 10. Hypothyroidism (E03.9: Hypothyroidism, unspecified) 11. Chronic GERD (K21.9: Gastro-esophageal reflux disease without esophagitis) 12. On deep vein thrombosis (DVT) prophylaxis (Z79.899: Other pearl stringer (current) drug therapy) Orders: benzocaine/butamben/tetracaine topical, 3 spray(s), [place]-Top, Topical, q2min PRN Other (see comment), Routine, Start date 06/21/24 8:34:00 EDT fentanyl, 100 mcg = 2 mL, Injection, IV Push, q2min PRN Other (see comment) for 4 dose(s), Stop date Limited # of times, Routine, Start date 06/21/24 8:34:00 EDT, 06/21/24 8:34:00 EDT midazolam, 2 mg = 2 mL, Injection, IV Push, As Directed PRN Other (see comment) for 4 dose(s), Stopdate Limited # of times, Routine, Start date 06/21/24 8:34:00 EDT, 06/21/24 8:34:00 EDT Sodium Chloride 0.9% intravenous solution 1,000 mL, 1,000 mL, IV, 25 mL/hr, Routine, Start date 06/21/24 8:34:00 EDT, 40 hour(s), Total volume (mL): 1,000, 90.8 kg, 2.06, m2 Cardiac Monitoring Communication Order Physician to Nursing Echo Transesophageal 2D Evaluate Need For Continued Telemetry NPO Diet Oxygen Therapy Saline Lock Insert Suctioning EULALIA ([facility]) Vital Signs Extracted from:Title:Inpatient Consultation GastroenterologyAuthor:Ayana CHATMAN, Marilyn CarusoDate:06/21/24 Impression and Plan Education and Follow-up: Counseled. Dark stool Acute ischemic CVA Atrial fibrillation Plan: High-dose PPI twice daily Avoid NSAIDs and blood thinners unless indicated by primary team Defer endoscopic evaluation for now given recent stroke. Will sign off. Please call if you have questions or concerns Extracted from:Title:APSO Note-neurologyAuthor:Soo Ordonez RNDate:06/21/24 ASSESSMENT: 78-year-old deaf right-handed man. Acute ischemic stroke, with several areas of ischemia in the right cerebral hemisphere. The largestarea of ischemia involves the right precentral and postcentral central sulcus cortex and subcortical areas, there is a small amount of ischemia in the right frontal lobe cortex/subcortex, and a tiny focus in the right parietal lobe white matter. There is susceptibility suggestive of petechial hemorrhage to the right precentral cortical hand knob area, with the blood product being scant enough that there is no associated hyperdensity on a follow-up CT. He has left hemiparesis (and sensory loss) affecting left upper extremity more so than left face more so than left lower extremity. In the left upper extremity his weakness is predominantly distal, worst in the hand. It does seem to be gradually improving. As for etiology for this, it looks embolic within the right cerebral hemisphere, seemingly all within the right MCA, but the MCA looks widely patent, as does the entire intracranial extracranial arterial circulation. So I presume this is cardioembolic in origin related to his atrial fibrillation, despite the anticoagulation. He had a Watchman device placed but there are rumors that its placement was suboptimal and there was mention that there might have been some atrial appendage thrombus seen?A transthoracic echocardiogram performed yesterday did not show any thrombus. PLAN: 1. Hold the apixaban and any anticoagulation for now 2. Hold the aspirin and any antiplatelet agents for now 3. Transesophageal echocardiogram today 4. If the transesophageal echocardiogram reveals intracardiac thrombus I will recommend immediate anticoagulation even in the setting of a small amount of brain parenchymal petechial hemorrhage 5. If the transesophageal echocardiogram does not show intracardiac thrombus, the tentative plan might be to start warfarin in the next few days and let the INR gradually become therapeutic (he and his have been asked for something other than the apixaban because it was prohibitively expensive) 1. Acute ischemic stroke (I63.9: Cerebral infarction, unspecified) 2. Dizziness on standing (R42: Dizziness and giddiness) 3. Black stool (K92.1: Melena) 4. Paroxysmal atrial fibrillation (I48.0: Paroxysmal atrial fibrillation) 5. Coronary atherosclerosis (I25.10: Atherosclerotic heart disease of [place] coronary artery without angina pectoris) 6. HTN (hypertension) (I10: Essential (primary) hypertension) 7. Hyperlipidemia (E78.5: Hyperlipidemia, unspecified) 8. Deaf b/l needs sign language (H91.90: Unspecified hearing loss, unspecified ear) 9. CKD (chronic kidney disease) stage 3, GFR 30-59 ml/min (N18.3: Chronic kidney disease, stage 3 (moderate)) 10. Hypothyroidism (E03.9: Hypothyroidism, unspecified) 11. Chronic GERD (K21.9: Gastro-esophageal reflux disease without esophagitis) 12. On deep vein thrombosis (DVT) prophylaxis (Z79.899: Other pearl stringer (current) drug therapy) Extracted from:Title:APSO NoteAuthor:KAMALJIT VELARDE-BC, ReneeDate:06/20/24 All interactions/assessments completed w/ Ipad signal worker helper -Alerted nursing that med rec needs to be reviewed for accuracy - awaiting this fall all dx. 1. Acute ischemic stroke (I63.9: Cerebral infarction, unspecified) + embolic CVA -CT head: no acute process, + chronic findings -CTA head/neck: no acute process -MRI Brain: Acute/subacute ischemia in the right frontal and right parietal lobes. Possible interval development of parenchymal hemorrhage. -Defer mgt. to neuro -Consult neuro: -Repeat CT head at 16:00 - pending -Hold asa/AC/chemical DVTp until repeat CT head is reviewed -Keep bp < 180 2. Dizziness on standing (R42: Dizziness and giddiness) 2/2 embolic CVA -CXR: No acute process -UA - neg for infectious process -Orthostatic v.s. - pending -IV antiemetics prn -TSH level - wnl -B12 def -> supplements -Fall precautions -Neurology following 3. Black stool (K92.1: Melena) Pt. states stool is black for the last week -Is on ferrous sulfate 2/2 anemia -> H&H is stable -Hemoccult stool - pending 4. Paroxysmal atrial fibrillation (I48.0: Paroxysmal atrial fibrillation) Per neuro who spoke w/ family + watchman's device - however in post cardiac f/u they were told cardio was unhappy with the placement. -Family reports hx. of cardiac thrombus -Echo - pending 5. Coronary atherosclerosis (I25.10: Atherosclerotic heart disease of [place] coronary artery without angina pectoris) 6. HTN (hypertension) (I10: Essential (primary) hypertension) 7. Hyperlipidemia (E78.5: Hyperlipidemia, unspecified) 8. Deaf b/l needs sign language (H91.90: Unspecified hearing loss, unspecified ear) Ipad sign language for all interactions 9. CKD (chronic kidney disease) stage 3, GFR 30-59 ml/min (N18.3: Chronic kidney disease, stage 3 (moderate)) Baseline Cr - suspect 1.6 - 1.8 - no recent labs -UA - no infectious process -Trend BMP -Avoid nephrotoxic medications as much as possible -Consult nephrology: If Cr worsens 10. Hypothyroidism (E03.9: Hypothyroidism, unspecified) 11. Chronic GERD (K21.9: Gastro-esophageal reflux disease without esophagitis) 12. On deep vein thrombosis (DVT) prophylaxis (Z79.899: Other intermediate (current) drug therapy) -Avoid chemical DVTp as above -Hold apixaban as above -SCDs, early ambulation Orders: cyanocobalamin, 1,000 microgram = 1 tab(s), Tab, Oral, Daily, Routine, Start date 06/21/24 9:00:00 EDT, 06/20/24 12:10:00 EDT Orthostatic Vitals Signs Referral to Resource Center Stool Occult Blood -Plan discussed w/ patient, nursing staff and CRM. This report was transcribed using voice recognition software. Every effort was made to ensure accuracy, however, inadvertently computerized manager custom mistakes may be present. Extracted from:Title:Consult Note-neurologyAuthor:Mery DAILEY, RonenoleDate: 06/20/24 ASSESSMENT: Acute ischemic stroke, with several areas of ischemia in the right cerebral hemisphere. The largestarea of ischemia involves the right precentral and postcentral central sulcus cortex and subcortical areas, there is a small amount of ischemia in the right frontal lobe cortex/subcortex, and a tiny focus in the right parietal lobe white matter. There is susceptibility suggestive of petechial hemorrhage to the right precentral cortical hand knob area. There was no hyperintensity in that area on the CT from last evening at 9 PM, so this is likely an interval development. As for etiology for this, it looks embolic within the right cerebral hemisphere, seemingly all within the right MCA, but the MCA looks widely patent, as does the entire intracranial extracranial arterial circulation. So I presume this is cardioembolic in origin related to his atrial fibrillation, despite the anticoagulation. PLAN: 1. Hold the apixaban and any anticoagulation 2. Hold the aspirin and any antiplatelet agents 3. Noncontrast CT of the head at 4 PM today, approximately 6 hours after the MR images, and stat CThead with any new focal neurological deficits or change in mentation. 4. Goal blood pressures for now would be to keep SBP less than 180, he has been okay 1. Acute ischemic stroke (I63.9: Cerebral infarction, unspecified) 2. CKD (chronic kidney disease) stage 3, GFR 30-59 ml/min (N18.3: Chronic kidney disease, stage 3 (moderate)) 3. Deaf b/l needs sign language (H91.90: Unspecified hearing loss, unspecified ear) 4. Chronic GERD (K21.9: Gastro-esophageal reflux disease without esophagitis) 5. Coronary atherosclerosis (I25.10: Atherosclerotic heart disease of [place] coronary artery without angina pectoris) 6. Hyperlipidemia (E78.5: Hyperlipidemia, unspecified) 7. Hypothyroidism (E03.9: Hypothyroidism, unspecified) 8. Paroxysmal atrial fibrillation (I48.0: Paroxysmal atrial fibrillation) 9. On deep vein thrombosis (DVT) prophylaxis (Z79.899: Other pearl stringer (current) drug therapy) Addendum by Calvin Hall DO on June 20, 2024 11:39:07 EDT I called and spoke with his stepson Rylan ([phone]) and he was able to provide some context regarding his cardiac care. He had a Watchman device placed. Reportedly, upon follow-up, the doctors that put it in were not pleased and did not think it was working correctly. There was mention of intracardiac thrombus, but I do not know if they discovered that with echocardiogram or catheterization or what. I do not know the details. He said the maintenance person was was a Dr. Perales ([phone]). With the blush of blood in the brain, we are holding anticoagulation and antiplatelet for now and he has a head CT scheduled for 4 PM, or sooner if he has any new neurological deficits or mental status decline. That being said, if we do a stat transthoracic echocardiogram that reveals some intracardiac thrombus, we may have to lean more towards anticoagulation soon or early here. Further recommendations to follow. Addendum by Calvin Hall DO on June 21, 2024 09:22:31 EDT NIHSS I forgot to add a point for the facial weakness. NIH is 6. Extracted from:Title:Admission H & PAuthor:XU ARIAS Omarkimberly RDate:06/19/24 1. Acute ischemic stroke (I6 3.9: Cerebral infarction, unspecified) Will check MRI/MRA head, brain, neck with and without contrast. Will check vitamin B12, folate, RPR, TSH with morning labs. Will check hemoglobin A1c and fasting lipid panel for risk stratification. Aspirin rectally until ST clears patient for oral intake. Permissive hypertension, labetalol IV as ordered below. No physical therapy, speech therapy, Occupational Therapy evaluation needed because patient has returned to baseline functional status. Consult neurology. 2. CKD (chronic kidney disease) stage 3, GFR 30-59 ml/min (N18.3: Chronic kidney disease, stage 3 (moderate)) Baseline GFR 30 to 40 mL/min 3. Deaf b/l needs sign language (H91.90: Unspecified hearing loss, unspecified ear) iPad based [place] [employer] with language interpreter used 4. Chronic GERD (K21.9: Gastro-esophageal reflux disease without esophagitis) Continue PPI 5. Coronary atherosclerosis (I25.10: Atherosclerotic heart disease of [place] coronary artery without angina pectoris) No active anginal complaints. Will need to get records from patient's primary maintenance person to clarify this diagnosis. Patient is not on a beta-xavier or SHANIQUE inhibitor as an outpatient. 6. Hyperlipidemia (E78.5: Hyperlipidemia, unspecified) Continue statin 7. Hypothyroidism (E03.9: Hypothyroidism, unspecified) Continue Synthroid 8. Paroxysmal atrial fibrillation (I48.0: Paroxysmal atrial fibrillation) Rate controlled. Continue DOAC. Will need to get records from patient's primary maintenance person. 9. On deep vein thrombosis (DVT) prophylaxis (Z79.899: Other intermediate (current) drug therapy) SCD, DOAC Orders: aspirin, 300 mg = 1 supp, Supp, Rectal, Daily, Routine, Start date 06/20/24 9:00:00 EDT, 06/20/24 0:52:00 EDT ondansetron, 4 mg = 2 mL, Injection, IV Push, q6hr PRN Nausea/Vomiting, Routine, Start date 06/20/24 0:52:00 EDT, 06/20/24 0:52:00 EDT Ambulate with Assistance Below the Knee Intermittent Pneumatic Compression Device Cardiac Monitoring Communication Order Communication Order Physician to Nursing Consult to Neurology Dysphagia Screen Evaluate Need For Continued Telemetry Folate Level Lipid Panel MRI Brain w/o Contrast Neurological Assessment Neurological Assessment Notify Provider Vital Signs Notify Provider Vital Signs Occupational Therapy Evaluate Patient, Develop a Plan of Care and Implement Plan Oxygen Protocol Physical Therapy Evaluate Patient, Develop a Plan of Care and Implement Plan Precautions Resuscitation Status - Full RPR with Conf Rfx Speech Language Pathology Evaluate Patient, Develop a Plan of Care and Implement Plan Speech Language Pathology Swallow Eval; Evaluate Pt, Develop a Plan of Care & Implement Plan Stroke Education Stroke Quality Measures Troponin TSH With T4fr Reflex Vitamin B12 Level Weight Anticipated stay greater than 2 midnights due to above Extracted from:Title:ED NoteAuthor:Tristan Hyde DO ADate:06/19/24 Acute ischemic stroke (I63.9 : Cerebral infarction, unspecified) Orders: aspirin, 300 mg = 1 supp, Supp, Rectal, Once, Stop date 06/19/24 21:55:00 EDT, STAT, Start date 06/19/24 21:55:00 EDT, 06/19/24 21:55:00 EDT ondansetron, 4 mg = 2 mL, Injection, IV Push, Once, Stop date 06/19/24 21:31:00 EDT, STAT, Start date 06/19/24 21:31:00 EDT, 06/19/24 21:31:00 EDT BB Draw & Hold Cardiac Monitoring CBC w/ Auto Diff Communication Order Communication Order Comprehensive Metabolic Panel Consult to Tele-Neurology Continuous Pulse Oximetry CT Head or Brain w/o Contrast CTA Head CTA Neck Dysphagia Screen ED Physician consult Hospitalist for continued care eGFR Neurological Assessment NPO Diet Oxygen Protocol PT & PTT Rapid Response Form Routine Capillary Glucose POC Stroke Quality Measures Troponin 0 Hr. UA with Cult Rflx XR Chest Single View Future Scheduled Tests Laboratory* Creatinine 07/06/23 [facility] 11-04-2024 Hospital Discharge instructions Patient Education 06/24/2024 11:42:01 Core Measures: Stroke (Cerebrovascular Accident) [facility], (Custom) Stroke (Cerebrovascular Accident) A stroke is acute of brain tissue, and it is a neurologic emergency. A stroke can cause permanent loss of function of the central nervous system (brain). If the symptoms of a stroke end withoutcomplications in 24 hours, it is diagnosed as a transient ischemic attack (TIA). If the symptoms are not resolved within 24 hours, it is defined as a stroke. CAUSES A stroke is caused by a decrease of oxygen supply to an area of your brain. It is usually the result of a small blood clot or hardening of the arteries. Blockages in, or damage to, the carotid arteries leading to the brain can also cause a stroke. Bleeding in the brain can cause, or accompany, a stroke. SYMPTOMS These symptoms usually develop suddenly (or may be newly present upon awakening from sleep): Loss of vision. Double vision. Confusion. Numbness or weakness on one side of the face or body. Inability to speak (aphasia). DIAGNOSIS Your caregiver can often determine the presence or absence of a stroke based on your symptoms, history, and examination. A CT scan of the brain is usually performed to confirm the stroke, look for causes, and determine the severity. Other tests may be done to find the cause of the stroke, including: An EKG and heart monitoring. An echocardiogram (ultrasound evaluation of the heart). An ultrasound evaluation of your carotid arteries. Determination of blood oxygen level and blood tests. PREVENTION The likelihood of a stroke can be decreased by appropriate treatment of high blood pressure, high cholesterol, diabetes, and by stopping smoking. RISK FACTORS: If you have been told by your doctor or nurse practitioner that you have any of the following risk factors for stroke, work with your health health care recruiter to control them. High Blood Pressure: High blood pressure is one of the main causes of stroke. It is the most important risk factor to control. Take your blood pressure medication, lose weight, increase your activity, and limit your salt intake to help control your blood pressure.Take your your blood pressure and write it down and then take them to your next doctor's appointment. Smoking: If you smoke: QUIT! We can help. Please call [facility] at [phone] ([facility]), or [phone], ext. [phone] Diabetes: Work with your healthcare professional to keep your blood sugar under control. Check yourblood sugar and take the results to your next doctor's visit. Take your medications as directed. Eating a healthy diet and exercising will also help keep your diabetes under control. For information on [facility] please call, . Carotid or other Artery Diseases: The carotid arteries in your neck carry blood to the brain. A stroke can be caused by a blood clot blocking an artery that has been damaged by a fatty buildup insidethe artery wall. Discuss ways to manage this with your health care provider. Atrial Fibrillation (A Fib): In A fib, your heart does not have a normal beat. This may allow clotsto form and puts you at a greater risk for having a stroke. Work with your health care provider to control your A fib. Your doctor may order special medication that helps prevent clots from forming. High blood cholesterol or high blood fats: High cholesterol increases your risk of stroke. Exerciseregularly, but talk to your health care provider first. A diet low in fat and cholesterol can help.If you have any questions about a low fat, low cholesterol diet, you can call our [facility] tax senior associate at [phone] Ext. [phone]. The goal for total cholesterol is less than 200, and for LDL or thebad cholesterol is less than 100. Lifestyle Management: You increase your risk of stroke if you are overweight or obese, are not veryactive, or drink too much alcohol. Enjoy a diet rich in fruits and vegetables. Exercise regularly and drink alcohol in moderation or no more than two drinks a day for men and no more than one drink aday for non- women, or don't drink at all. This will help decrease your risk of stroke. Oral Contraceptives: Taking control pills or the pill can be a risk factor for stroke especially if you smoke. Discuss using the oral contraceptives and your risk of stroke with your health health care recruiter. TREATMENT TIME IS OF THE ESSENCE! Medications to dissolve a blood clot can only be used within four and a half hours of the onset of symptoms. After that time, treatment of stroke depends on duration of symptoms, severity, and cause. Medications and diet measures may be used to address diabetes, high blood pr essure, and other risk factors. Physical therapy, speech therapy, and occupational therapy specialists will assess you and work to improve any functions impaired by the stroke. Measures will be takento prevent short and pearl stringer complications, including aspiration pneumonia, blood clots in the leg s, bedsores, and falls. HOME CARE INSTRUCTIONS Care at home after a stroke can be complicated. Medications Blood thinners may be used to prevent another stroke. Blood thinners need to be used exactly as instructed. Medicines may also be used to control risk factors for a stroke. Be sure you understand all your medication instructions. It is very important to not run out of your medicine. Getmore while you still have a one-week supply. Do not stop taking your medicine without speaking to your healthcare professional. Take all of your medications or an updated list of your medications to all of your doctor's appointments. Physical, occupational, and speech therapy Ongoing therapy is often necessary to maximize recovery after a stroke. If you have been advised to use a walker or a cane, use it at all times. Be sure youkeep your therapy appointments. Diet Certain diets may be prescribed to address high blood pressure, high cholesterol, or diabetes.Foods may need to be a special consistency (soft, pureed, small bites) to avoid food going into your lungs or choking. Home safety A safe home environment is important to reduce the risk of falls. Your caregiver may arrange for specialists to evaluate your home. Grab bars in the bedroom and bathroom are often important. Your caregiver may arrange for special equipment to be used at home, such as raised toilets and a seat for the shower. It s important to know and control your risk factors, but it is also important to recognize the signs and symptoms of stroke/TIA and know what to do: Call 911 if any of these things happen: Sudden numbness or weakness of the face, arm, or leg especially on one side of the body. Sudden confusion, trouble speaking, or understanding. Sudden trouble seeing in one or both eyes. Sudden trouble walking, dizziness, loss of balance or coordination Sudden severe headache with no known cause * It is very important for you to follow-up with your Primary Care Doctor and your Neurologist after you go home. Make sure that you keep your doctor visits. Remember: TIME LOST is BRAIN LOST Resources: for more information on strokes, log onto [email or web address] or www.[email or web address] or call the [place] [employer] at [phone]. Revised 08/2018 Follow Up Care 06/19/2024 21:05:12 With:Paulina Tyson Address: [address] [place] [id number] Business (1) When: Unknown Comments:Call for followup appointment 7-10 days With:Reji CHATMAN, EARNESTINE Martinez Address: [address] [address]- When:1 to 2 weeks [facility] 11-04-2024 NoteProgress Note-Physician Basic Information 78-year-old deaf right-handed man. [employer] using sign language is used to communicate with both him and his , who is also deaf. He says that he first noticed something was wrong this past Monday when he was trying to screw on a showerhead and found that he was having a lot of weakness with his left hand. He came here for evaluation yesterday with left hemiparesis mostly involving the left upper extremity and in the face. And he says it feels numb. He did not have headache. He takes apixaban at home. His said it is very expensive and she wants something else. He currently feels lightheaded. Last night he had a CT scan of his head that was nonacute. CTA of head and neck was also unremarkable. MRI from this morning shows stroke which is further discussed below. [1] Assessment/Plan ASSESSMENT: 78-year-old deaf right-handed man. Acute ischemic stroke, with several areas of ischemia in the right cerebral hemisphere. The largestarea of ischemia involves the right precentral and postcentral central sulcus cortex and subcortical areas, there is a small amount of ischemia in the right frontal lobe cortex/subcortex, and a tiny focus in the right parietal lobe white matter. There is susceptibility suggestive of petechial hemorrhage to the right precentral cortical hand knob area, with the blood product being scant enough that there is no associated hyperdensity on a follow-up CT. He has left hemiparesis (and sensory loss) affecting left upper extremity more so than left face more so than left lower extremity. In the left upper extremity his weakness is predominantly distal, worst in the hand. It does seem to be gradually improving. As for etiology for this, it looks embolic within the right cerebral hemisphere, seemingly all within the right MCA, but the MCA looks widely patent, as does the entire intracranial extracranial arterial circulation. So I presume this is cardioembolic in origin related to his atrial fibrillation, despite the anticoagulation. He had a Watchman device placed and mention that there might have been some atrial appendage thrombus seen. A transthoracic echocardiogram performed yesterday did not show any thrombus. PLAN: I had a long discussion with the patient's and son regarding use of antiplatelet medication and anticoagulation. I discussed the risks of recurrent stroke with holding antiplatelet or anticoagulation due to hemorrhage versus the risk of worsening hemorrhage on antiplatelet medication. Discussion was performed through a design and sales consultant. I discussed the case verbally with the patient's son. All reports understanding of the discussion. I discussed that there is no scenario without risk. The patient does have recent Watchman placed with reported identified clot in the atrium makingand high risk for recurrent stroke. I recommend aspirin 81 mg daily for 1 week then starting the patient on Coumadin and once therapeutic between 2-3 INR stopping the aspirin. There is risk of worsening hemorrhage. Patient's repeat CT scan today was reviewed personally and is stable and reveals normal progression of the patient's stroke with no worsening hemorrhage. Due to the high risk of recurrent stroke I do recommend antiplatelet medication as discussed. I will continue to follow the patient clinically while in the hospital and will see him in the outpatient neurology clinic within 1 week. I counseled the patient and his family on returning to the hospital should he develop any new or worsening neurological symptoms, headaches, nausea, or vomiting. 1. Acute ischemic stroke (I63.9: Cerebral infarction, unspecified) 2. Intraparenchymal hemorrhage of brain (I61.9: Nontraumatic intracerebral hemorrhage, unspecified) 3. Dizziness on standing (R42: Dizziness and giddiness) 4. Black stool (K92.1: Melena) 5. Paroxysmal atrial fibrillation (I48.0: Paroxysmal atrial fibrillation) 6. Coronary atherosclerosis (I25.10: Atherosclerotic heart disease of [place] coronary artery without angina pectoris) 7. HTN (hypertension) (I10: Essential (primary) hypertension) 8. Hyperlipidemia (E78.5: Hyperlipidemia, unspecified) 9. Deaf b/l needs sign language (H91.90: Unspecified hearing loss, unspecified ear) 10. CKD (chronic kidney disease) stage 3, GFR 30-59 ml/min (N18.3: Chronic kidney disease, stage 3 (moderate)) 11. Hypothyroidism (E03.9: Hypothyroidism, unspecified) 12. Chronic GERD (K21.9: Gastro-esophageal reflux disease without esophagitis) 13. On deep vein thrombosis (DVT) prophylaxis (Z79.899: Other intermediate (current) drug therapy) Subjective Review of Systems GEN: No fevers or chills. CV/PULM: No chest pain. No shortness of breath. No palpitations. NEURO: No headaches. No loss of vision. No double vision. No subjective dysphagia. [2] Objective Vitals & Measurements T: 36.5 ???C(Oral) TMIN: 36.4 ???C(Axillary) TMAX: 36.9 ???C(Oral) HR: 75(Peripheral) RR: 18 BP: 118/72 SpO2: 94% WT: 91.2 kg (more content not included)...[facility]:Result Comment: Electronically Signed By: Mery DAILEY, Soo\.br\Date and Time Signed: 06/24/24 09:43 EST\.br\Electronically Co-Signed By: Adebayo Mendoza MD\.br\Date and Time Co-Signed: 06/24/24 11:29 [id number] NoteProgress Note-Physician Assessment/Plan PLAN: 1. Acute ischemic stroke (I63.9: Cerebral infarction, unspecified) +embolic CVA MRI brain shows: Acute/subacute ischemia in the right frontal and right parietal lobes. Possible interval development of parenchymal hemorrhage. Consult neurology appreciated. 06/[address] head no acute process noted. Echo w.EULALIA 06/21--EF 35-40%, moderate to severe global hypokinesis of LV, no evidence of thrombus, severe spontaneous echo contrast in the left atrial appendage, Watchman device present not well-visualized. No gross evidence of HARRIS device leak or device thrombus. IAS intact. [facility]: [facility]Day High 50 Minutes [id number] 2. Intraparenchymal hemorrhage of brain (I61.9: Nontraumatic intracerebral hemorrhage, unspecified) See #1 MRI brain -CT head: no acute process, + chronic findings -CTA head/neck: no acute process -Consult neurology appreciated.: Discussion w/: initiate ASA 81mg in AM. Obtain CT head on 06/24; If pt tolerates ASA w/any further hemorrhage will continue ASA and initiate Coumadin or/Eliquis in 1 week. If Coumadin will continue ASA w/Coumadin until INR therapeutic then DC ASA at that point. Pt will need freq eval of INR --set up w/Coumadin Clinic /PCP to follow if Coumadin. Case management to eval cost of Eliquis. Ordered: [facility] Care/Day High 50 Minutes [id number] 3. Dizziness on standing (R42: Dizziness and giddiness) Secondary to #1,2 Fall precautions Ordered: [facility] Care/Day High 50 Minutes [id number] 4. Black stool (K92.1: Melena) Pt. states stool is black for the last week -Is on ferrous sulfate 2/2 anemia -> H&H is stable -Hemoccult stool - neg Consult GI -avoid NSAIDs and blood thinners unless otherwise indicated defer scope d/t #1,2 for now. f/u opt. Ordered: [facility] Hospital Care/Day High 50 Minutes [id number] 5. Paroxysmal atrial fibrillation (I48.0: Paroxysmal atrial fibrillation) Per neuro who spoke w/ family + watchman's device - however in post cardiac f/u they were told cardio was unhappy with the placement.---Family reports hx. of cardiac thrombus Echo -as above Apixaban on hold secondary to #2, see plan Ordered: [facility] Hospital Care/Day High 50 Minutes [id number] 6. Coronary atherosclerosis (I25.10: Atherosclerotic heart disease of [place] coronary artery without angina pectoris) Statin Apixaban on hold for now. 7. HTN (hypertension) (I10: Essential (primary) hypertension) Diet controlled, no longer taking valsartan 8. Hyperlipidemia (E78.5: Hyperlipidemia, unspecified) Statin 9. Deaf b/l needs sign language (H91.90: Unspecified hearing loss, unspecified ear) Ipad sign language for all interactions 10. CKD (chronic kidney disease) stage 3, GFR 30-59 ml/min (N18.3: Chronic kidney disease, stage 3 (moderate)) At baseline CR level 1.6-1.8 Trend labs. 11. Hypothyroidism (E03.9: Hypothyroidism, unspecified) Levothyroxine 12. Chronic GERD (K21.9: Gastro-esophageal reflux disease without esophagitis) PPI 13. On deep vein thrombosis (DVT) prophylaxis (Z79.899: Other pearl stringer (current) drug therapy) -Avoid chemical DVTp as above -Hold apixaban as above -SCDs, early ambulation Orders: aspirin, 81 mg = 1 tab(s), Tab-EC, Oral, Daily, Routine, Start date 06/23/24 9:00:00 EST, 06/22/24 12:53:00 EDT Subjective Pt seen while sitting up in recliner. Communicated w/pt by [employer] signal worker helper. Pt denies any current complaints. Discussed in depth with pt neurology recommendations to start ASA 81mg daily tomorrow and to repeat CT head on Monday to assess hemorrhage site. Discussed risks/benefits of starting ASA; Pt states that he did have problems initially affording Eliquis which is currently on hold. Plan after discussion is to change pt to Coumadin if tolerate ASA in one week. Unless can obtain Eliquis at better cost. Will discuss w/ pt's when she arrives per pt request. Pt reports no issues today. No acute events overnight. Objective Vitals & Measurements T: 36.7 ???C(Oral) TMIN: 36.2 ???C(Axillary) TMAX: 37.1 ???C(Axillary) HR: 60(Peripheral) RR: 16 BP: 115/72 BP: 135/82(Standing) BP: 121/76(Supine) SpO2: 97% HT: 92.8 cm Intake & Output This visit (24 hour periods starting at 07:00 EDT) 06/22/24 * 06/21/24 06/20/24 Total Summary Intake mL -- -- -- Output mL -- -- -- Fluid Balance -- -- -- Intake (0) Output (0) Counts (2) Stool Count -- -- 1 Urine Count -- -- 2 * This column has not completed the indicated time period. Indicates a 25 hour day. Physical Exam General: , NAD Head: Normocephalic/atraumatic Eyes: Pupils equal, round, and reactive to light 3mm. Conjunctivae and sclerae normal, and extraocular movements intact HEENT: + deaf, Mucous membrane moist. Tongue normal Neck: Trachea midline, neck supple, Chest: No chest wall deformity, no chest wall tenderness Lungs: CTA medeiros, no cough (more content not included)...[facility] HospitalComment on above:Result Comment: Electronically Signed By: Julisa FIGUEROA\.br\Date and Time Signed: 06/22/24 12:57 EDT\.br\Electronically Co-Signed By: Forest Zavala DO\.br\Date and Time Co-Signed:06/22/24 14:12 [id number] Note Progress Note-Physician Assessment/Plan ASSESSMENT: 78-year-old deaf right-handed man. Acute ischemic stroke, with several areas of ischemia in the right cerebral hemisphere. The largestarea of ischemia involves the right precentral and postcentral central sulcus cortex and subcortical areas, there is a small amount of ischemia in the right frontal lobe cortex/subcortex, and a tiny focus in the right parietal lobe white matter. There is susceptibility suggestive of petechial hemorrhage to the right precentral cortical hand knob area, with the blood product being scant enough that there is no associated hyperdensity on a follow-up CT. He has left hemiparesis (and sensory loss) affecting left upper extremity more so than left face more so than left lower extremity. In the left upper extremity his weakness is predominantly distal, worst in the hand. It does seem to be gradually improving. As for etiology for this, it looks embolic within the right cerebral hemisphere, seemingly all within the right MCA, but the MCA looks widely patent, as does the entire intracranial extracranial arterial circulation. So I presume this is cardioembolic in origin related to his atrial fibrillation, despite the anticoagulation. He had a Watchman device placed but there are rumors that its placement was suboptimal and there was mention that there might have been some atrial appendage thrombus seen?A transthoracic echocardiogram performed yesterday did not show any thrombus. PLAN: 1. Hold the apixaban and any anticoagulation for now 2. Hold the aspirin and any antiplatelet agents for now 3. Transesophageal echocardiogram today 4. If the transesophageal echocardiogram reveals intracardiac thrombus I will recommend immediate anticoagulation even in the setting of a small amount of brain parenchymal petechial hemorrhage 5. If the transesophageal echocardiogram does not show intracardiac thrombus, the tentative plan might be to start warfarin in the next few days and let the INR gradually become therapeutic (he and his have been asked for something other than the apixaban because it was prohibitively expensive) [1] 1. Acute ischemic stroke (I63.9: Cerebral infarction, unspecified) 2. Dizziness on standing (R42: Dizziness and giddiness) 3. Black stool (K92.1: Melena) 4. Paroxysmal atrial fibrillation (I48.0: Paroxysmal atrial fibrillation) 5. Coronary atherosclerosis (I25.10: Atherosclerotic heart disease of [place] coronary artery without angina pectoris) 6. HTN (hypertension) (I10: Essential (primary) hypertension) 7. Hyperlipidemia (E78.5: Hyperlipidemia, unspecified) 8. Deaf b/l needs sign language (H91.90: Unspecified hearing loss, unspecified ear) 9. CKD (chronic kidney disease) stage 3, GFR 30-59 ml/min (N18.3: Chronic kidney disease, stage 3 (moderate)) 10. Hypothyroidism (E03.9: Hypothyroidism, unspecified) 11. Chronic GERD (K21.9: Gastro-esophageal reflux disease without esophagitis) 12. On deep vein thrombosis (DVT) prophylaxis (Z79.899: Other pearl stringer (current) drug therapy) Subjective Review of Systems GEN: No fevers or chills. CV/PULM: No chest pain. No shortness of breath. No palpitations. NEURO: No headaches. No loss of vision. No double vision. No subjective dysphagia. [2] Objective Vitals & Measurements T: 36.8 ???C(Oral) TMIN: 36.2 ???C(Axillary) TMAX: 37.1 ???C(Axillary) HR: 77(Peripheral) RR: 16 BP: 105/63 BP: 135/82(Standing) BP: 121/76(Supine) SpO2: 94% HT: 92.8 cm Intake & Output This visit (24 hour periods starting at 07:00 EDT) 06/21/24 * 06/20/24 06/19/24 Total Summary Intake mL -- -- 2 Output mL -- -- 550 Fluid Balance -- -- -548 Intake (1) ondansetron mL -- -- 2 Total -- -- 2 Output (1) Urine Voided mL -- -- 550 Total -- -- 550 Counts (2) Stool Count -- 1 1 Urine Count -- 2 -- * This column has not completed the indicated time period. Physical Exam GEN: General appearance normal. Well-kempt. No distress. No visualized deformities or trauma. CARDIO/VASC: Limbs without significant edema and appear well-perfused. PULM: Normal work of breathing. SKIN: Visualized skin is intact and without lesions aside from age-related findings. MS: Affect is normal. Patient is alert. Normal attention. LANG: Uses sign language. EYES: Pupils equal/reactive/consensual. Ocular motility full. No pathologic nystagmus. Visual medeiros are full to finger counting. CN: Facial sensation normal. Hearing acuity normal. Left facial droop. MOTOR: Muscle bulk normal. Muscle tone seems normal. Moderate left upper extremity weakness, +5/5 proximally at the shoulder, +5/5 with elbow flexion/extension, +4/5 at wrist and hand, near paralysisof intrinsic hand muscles. Left lower extremity with subtle weakness throughout, generally still graded as +5/5. REFLEXES: Reflexes normoactive throughout. No pathologic reflexes. SENSORY: Light touch normal. Vibr (more content not included)...[facility] HospitalComment on above:Result Comment: Electronically Signed By: Norma DAILEY, Yaritza Mota\.br\Date and Time Signed: 06/22/24 06:55 EDT\.br\Electronically Co-Signed By: Adebayo Mendoza MD\.br\Electronically Co- Signed By: Yaritza Green RN Comment: did not see [id number] Note Progress Note-Physician Assessment/Plan All interactions/assessments completed w/ [employer] signal worker helper 1. Acute ischemic stroke (I63.9: Cerebral infarction, unspecified) + embolic CVA -CT head: no acute process, + chronic findings -CTA head/neck: no acute process -MRI Brain: Acute/subacute ischemia in the right frontal and right parietal lobes. Possible interval development of parenchymal hemorrhage. -Defer mgt. to neuro -Consult neuro: -06/20: Repeat CT head at 16:00 - no acute process -Echo: EF 35-40%, moderate to severe global hypokinesis of LV, no evidence of thrombus, severe spontaneous echo contrast in the left atrial appendage, Watchman device present not well-visualized. No gross evidence of HARRIS device leak or device thrombus. IAS intact. -Echo reviewed w/ Dr. Hall, cont. to hold asa/AC/chemical DVTp - will re-eval pt. in a.m. and decide on AC tx. -Keep bp < 180 2. Dizziness on standing (R42: Dizziness and giddiness) 2/2 embolic CVA -CXR: No acute process -UA - neg for infectious process -Orthostatic v.s. - not obtained yet -IV antiemetics prn -TSH level - wnl -B12 def -> supplements -Fall precautions -Neurology following 3. Black stool (K92.1: Melena) Pt. states stool is black for the last week -Is on ferrous sulfate 2/2 anemia -> H&H is stable -Hemoccult stool - neg 4. Paroxysmal atrial fibrillation (I48.0: Paroxysmal atrial fibrillation) Per neuro who spoke w/ family + watchman's device - however in post cardiac f/u they were told cardio was unhappy with the placement. -Family reports hx. of cardiac thrombus -Echo -as above -Hold apixaban as above 5. Coronary atherosclerosis (I25.10: Atherosclerotic heart disease of [place] coronary artery without angina pectoris) -Apixaban, simvastatin, 6. HTN (hypertension) (I10: Essential (primary) hypertension) -Diet controlled, no longer taking valsartan 7. Hyperlipidemia (E78.5: Hyperlipidemia, unspecified) -Statin 8. Deaf b/l needs sign language (H91.90: Unspecified hearing loss, unspecified ear) Ipad sign language for all interactions 9. CKD (chronic kidney disease) stage 3, GFR 30-59 ml/min (N18.3: Chronic kidney disease, stage 3 (moderate)) Baseline Cr - suspect 1.6 - 1.8 - no recent labs -UA - no infectious process -Trend BMP -Avoid nephrotoxic medications as much as possible -Consult nephrology: If Cr worsens 10. Hypothyroidism (E03.9: Hypothyroidism, unspecified) -Levothyroxine 11. Chronic GERD (K21.9: Gastro-esophageal reflux disease without esophagitis) -PPI 12. On deep vein thrombosis (DVT) prophylaxis (Z79.899: Other pearl stringer (current) drug therapy) -Avoid chemical DVTp as above -Hold apixaban as above -SCDs, early ambulation Orders: citalopram, 10 mg = 0.5 tab(s), Tab, Oral, Once, Stop date 06/21/24 15:31:00 EDT, NOW, Start date 06/21/24 15:31:00 EDT finasteride, 5 mg = 1 tab(s), Tab, Oral, Once, Stop date 06/21/24 15:32:00 EDT, NOW, Start date 06/21/24 15:32:00 EDT tamsulosin, 0.4 mg = 1 cap(s), Cap, Oral, Once, Stop date 06/21/24 15:32:00 EDT, NOW, Start date 06/21/24 15:32:00 EDT Basic Metabolic Panel Consult to Gastroenterology ECG 12 Lead Adult eGFR Extra Lav Tube Stool Occult Blood -Plan discussed w/ patient, nursing staff and CRM. This report was transcribed using voice recognition software. Every effort was made to ensure accuracy, however, inadvertently computerized manager custom mistakes may be present. Subjective No acute events overnight. Patient denies CP, pressure, palpitations, N/V, SOB or paresthesia. Review of Systems Constitutional: + fatigue/malaise, dizziness - mild improvement, difficulty swallowing this a.m. - improved w/ diet change Respiratory: Negative Cardiovascular: Negative. Gastrointestinal: Denies abd pain. Passing flatus. Last BM: 06/19 Additional ROS info: Except as noted in the above Review of Systems and in the History of Present Illness all other systems have been reviewed and are negative or noncontributory Objective Vitals & Measurements T: 36.2 ???C(Axillary) TMIN: 36.2 ???C(Axillary) TMAX: 36.8 ???C(Axillary) HR: 69(Monitored) RR: 16BP: 142/93 SpO2: 96% WT: 88.9 kg Intake & Output This visit (24 hour periods starting at 07:00 EDT) 06/21/24 * 06/20/24 06/19/24 Total Summary Intake mL -- -- 2 Output mL -- -- 550 Fluid Balance -- -- -548 Intake (1) ondansetron mL -- -- 2 Total -- -- 2 Output (1) Urine Voided mL -- -- 550 Total -- -- 550 Counts (2) Stool Count -- 1 1 Urine Count -- 2 -- * This column has not completed the indicated time period. Physical Exam General: Calm, able to communicate needs, NAD Head: Normocephalic/atraumatic Eyes: Pupils equal, round, and reactive to light. Conjunctivae and sclerae normal, and extraocular movements intact HEENT: + deaf, Mucous membrane moist. Tongue normal Neck: T (more content not included)...[facility] HospitalComment on above:Result Comment: Electronically Signed By: Shelley RUIZ\.br\Date and Time Signed: 06/21/24 16:12 EDT\.br\Electronically Co-Signed By: Forest Zavlaa DO.br\Date and Time Co-Signed: 06/21/24 16:58 [id number] Note Echocardiology Procedure Exam Date/Time Accession # Ordering Echo Transesophageal 2D 06/21/2024 13:08 EDT [id number] Floyd Galdamez MD CPT code [id number] Reason for Exam (Echo Transesophageal 2D) CVA Report [facility] [address] [place] [address] Transesophageal Echocardiogram Report Name: AYAD DE LA ROSA Study Date: 06/21/2024 12:10 PM Patient Location: [id number] 01 [facility] Bed(s) [facility] HR: 85 : 1945 Gender: Male Height: 66 in Age: 78 yrs Ethnicity: [facility] Weight: 207 lb Reason For Study: CVA BSA: 2.0 m2 History: HTN,Diabetes,CAD,Atrial Fibrillation,Cardiomyopathy,HI,Watchman's device Ordering Physician: Denice^Ivy Performed By: Mimi Pelayo [facility] Interpretation Summary Informed constent obtained. Sedation was administered with Fentanyl 50 mcg, Versed 2 mg. Lidocaine jelly was applied. EULALIA probe was passed to esophagus and stomach, multiplane EULALIA was performed with color Doppler. No immediate complications. Left ventricular systolic function is moderate to severely reduced. Ejection Fraction = 35-40%. There is moderate to severe global hypokinesis of the left ventricle. No evidence of thrombus seen on this study. severe spontaneous echo contrast in left atrial appendage. There is a Watchman device present. It is not well visualized. There is no gross evidence of peridevice leak or device thrombus. IAS intact. Procedure Echocardiology Report A 2D transesophageal echocardiogram with Doppler and color flow Doppler was performed. Left Ventricle Ejection Fraction = 35-40%. Left ventricular systolic function is moderate to severely reduced. There is moderate to severe global hypokinesis of the left ventricle. No evidence of thrombus seen on this study. Left Atrium There is a Watchman device present. It is not well visualized. There is no gross evidence of peridevice leak or device thrombus. severe spontaneous echo contrast in left atrial appendage. IAS intact. Mitral Valve Mitral valve structure is normal. There is Trace mitral regurgitation. Tricuspid Valve Structurally normal tricuspid valve. There is trace tricuspid regurgitation. Pulmonic Valve The pulmonic valve is normal. There is no pulmonic valve regurgitation. FINAL REPORT Dictated: 06/21/2024 12:10 pm Floyd Galdamez MD Signed (Electronic Signature): 06/21/2024 1:33 pm Signed by: Floyd Galdamez MD Transcribed by: LISE Technologist: [facility]11-01-2024 Note Progress Note-Physician Procedure Airway Assessment: Class I: Visualization of the soft palate, fauces, uvula, anterior and posteriorpillars Airway Abnormalities: none ASA Classification: ASA 3: A patient with severe systemic disease Risks/Benefits of IV Sedation: Have been explained IV Sedation Plan: Patient agrees to IV sedation plan_ Assessment/Plan 1. Acute ischemic stroke (I63.9: Cerebral infarction, unspecified) 2. Dizziness on standing (R42: Dizziness and giddiness) 3. Black stool (K92.1: Melena) 4. Paroxysmal atrial fibrillation (I48.0: Paroxysmal atrial fibrillation) 5. Coronary atherosclerosis (I25.10: Atherosclerotic heart disease of [place] coronary artery without angina pectoris) 6. HTN (hypertension) (I10: Essential (primary) hypertension) 7. Hyperlipidemia (E78.5: Hyperlipidemia, unspecified) 8. Deaf b/l needs sign language (H91.90: Unspecified hearing loss, unspecified ear) 9. CKD (chronic kidney disease) stage 3, GFR 30-59 ml/min (N18.3: Chronic kidney disease, stage 3 (moderate)) 10. Hypothyroidism (E03.9: Hypothyroidism, unspecified) 11. Chronic GERD (K21.9: Gastro-esophageal reflux disease without esophagitis) 12. On deep vein thrombosis (DVT) prophylaxis (Z79.899: Other pearl stringer (current) drug therapy) Orders: benzocaine/butamben/tetracaine topical, 3 spray(s), [place]-Top, Topical, q2min PRN Other (see comment), Routine, Start date 06/21/24 8:34:00 EDT fentanyl, 100 mcg = 2 mL, Injection, IV Push, q2min PRN Other (see comment) for 4 dose(s), Stop date Limited # of times, Routine, Start date 06/21/24 8:34:00 EDT, 06/21/24 8:34:00 EDT midazolam, 2 mg = 2 mL, Injection, IV Push, As Directed PRN Other (see comment) for 4 dose(s), Stopdate Limited # of times, Routine, Start date 06/21/24 8:34:00 EDT, 06/21/24 8:34:00 EDT Sodium Chloride 0.9% intravenous solution 1,000 mL, 1,000 mL, IV, 25 mL/hr, Routine, Start date 06/21/24 8:34:00 EDT, 40 hour(s), Total volume (mL): 1,000, 90.8 kg, 2.06, m2 Cardiac Monitoring Communication Order Physician to Nursing Echo Transesophageal 2D Evaluate Need For Continued Telemetry NPO Diet Oxygen Therapy Saline Lock Insert Suctioning EULALIA ([facility]) Vital SignsAultman Orrville HospitalComment on above:Result Comment: Electronically Signed By: Denice CHATMAN, Floyd Coffman\.yessi\Date and Time Signed: 06/21/24 13:15 [id number] NoteConsultation Note Patient: AYAD DE LA ROSA Age: 78 years Sex: Male : 1945 Associated Diagnoses: None Author: Marilyn Piña MD History of Present Illness Gastroenterology Consult 78-year-old male History of A-fib on watchman's device Presented with acute CVA Also with dark stool and positive occult blood stool Hemoglobin last hemoglobin was 15.4 GI consulted to evaluate GI bleed Review of Systems Constitutional Negative except for HPI Health Status Allergies: Allergies (1) Active Severity Reaction No Known Allergies None Documented Current medications: (Selected) Inpatient Medications Ordered Flomax 0.4 mg Cap: 0.4 mg = 1 cap(s), Cap, Oral, Daily, Routine, Start date 06/21/24 9:00:00 EDT, 06/20/24 14:25:00 EDT Protonix 40 mg Tab-DR: 40 mg = 1 tab(s), Tab-DR, Oral, BID, Routine, Start date 06/20/24 21:00:00 EDT Sodium Chloride 0.9% IV Telma 1000 mL 1,000 mL: 1,000 mL, IV, 25 mL/hr, Routine, Start date 06/21/24 8:34:00 EDT, 40 hour(s), Total volume (mL): 1,000, 90.8 kg, 2.06, m2 benzocaine/butamben/tetracaine Top Aer (CETACAINE): 3 spray(s), [place]-Top, Topical, q2min PRN Other(see comment), Routine, Start date 06/21/24 8:34:00 EDT citalopram 20 mg Tab: 10 mg = 0.5 tab(s), Tab, Oral, Daily, Routine, Start date 06/21/24 9:00:00 EDT, 06/20/24 14:24:00 EDT cyanocobalamin 1000 mcg Tab: 1,000 microgram = 1 tab(s), Tab, Oral, Daily, Routine, Start date 06/21/24 9:00:00 EDT, 06/20/24 12:10:00 EDT fentanyl 50 mcg/mL injectable solution: 100 mcg = 2 mL, Injection, IV Push, q2min PRN Other (see comment) for 4 dose(s), Stop date Limited # of times, Routine, Start date 06/21/24 8:34:00 EDT, 06/21/24 8:34:00 EDT ferrous sulfate 325 mg Tab: 325 mg = 1 tab(s), Tab, Oral, BID, Routine, Start date 06/20/24 21:00:00 EDT, 06/20/24 14:24:00 EDT finasteride 5 mg Tab: 5 mg = 1 tab(s), Tab, Oral, Daily, Routine, Start date 06/21/24 9:00:00 EDT levothyroxine 75 mcg (0.075 mg) Tab: 75 mcg = 1 tab(s), Tab, Oral, Daily, Routine, Start date 06/21/24 6:30:00 EDT, 06/20/24 14:25:00 EDT midazolam 1 mg/mL preservative-free Inj 2 mL: 2 mg = 2 mL, Injection, IV Push, As Directed PRN Other (see comment) for 4 dose(s), Stop date Limited # of times, Routine, Start date 06/21/24 8:34:00 EDT, 06/21/24 8:34:00 EDT ondansetron 4 mg/2 mL Inj: 4 mg = 2 mL, Injection, IV Push, q6hr PRN Nausea/Vomiting, Routine, Start date 06/20/24 0:52:00 EDT, 06/20/24 0:52:00 EDT simvastatin 10 mg Tab: 20 mg = 2 tab(s), Tab, Oral, Once a day (at bedtime), Routine, Start date 06/20/24 21:00:00 EDT, 06/20/24 14:25:00 EDT Prescriptions Prescribed Flomax 0.4 mg Cap: 0.4 mg = 1 cap(s), Oral, Daily, # 90 cap(s), Refills(s) 3, Pharmacy: [facility]/pharmacy #[id number], 170, cm, 12/25/20 11:04:00 EDT, Height/Length Dosing, 95, kg, 12/25/20 11:04:00 EDT, WeightDosing Protonix 40 mg Tab-DR: 40 mg = 1 tab(s), Oral, BID, # 90 tab(s), Refills(s) 3, Pharmacy: [facility]/pharmacy #[id number], 168.9, cm, 07/21/23 8:34:00 EST, Height/Length Dosing, 85, kg, 07/21/23 8:34:00 EST, Weight Dosing finasteride 5 mg Tab: 5 mg = 1 tab(s), Oral, Daily, # 90 tab(s), Refills(s) 3, Pharmacy: [facility]/pharmacy #[id number], 170, cm, 12/25/20 11:04:00 EDT, Height/Length Dosing, 95, kg, 12/25/20 11:04:00 EDT, Weight Dosing Documented Medications Documented CeleBREX 100 mg Cap: 100 mg = 1 cap(s), Oral, Daily, Refills(s) 0, Pain Eliquis 5 mg oral tablet: mg tab(s), Oral, BID, Refills(s) 0, Blood Thinner amiodarone 200 mg Tab: Refills(s) 0 citalopram 10 mg Tab: mg tab(s), Oral, Daily, Refills(s) 0, Depression ferrous sulfate 325 mg oral enteric coated tablet: 325 mg = 1 tab(s), Oral, BID, Refills(s) 0, Prophylaxis levothyroxine 75 mcg (0.075 mg) Tab: mcg tab(s), Oral, Daily, Refills(s) 0, Thyroid simvastatin 20 mg Tab: 20 mg = 1 tab(s), Oral, Once a day (at bedtime), High cholesterol valsartan 40 mg Tab: 40 mg = 1 tab(s), Oral, Daily, Refills(s) 0, High blood pressure, Medications (13) Active Scheduled: (8) citalopram 20 mg Tab [F] 10 mg 0.5 tab(s), Oral, Daily cyanocobalamin 1000 mcg Tab [F] 1,000 microgram 1 tab(s), Oral, Daily ferrous sulfate 325 mg Tab [F] 325 mg 1 tab(s), Oral, BID finasteride 5 mg Tab [F] 5 mg 1 tab(s), Oral, Daily levothyroxine 75 mcg (0.075 mg) Tab [F] 75 mcg 1 tab(s), Oral, Daily pantoprazole [address] Tab [F] 40 mg 1 tab(s), Oral, BID simvastatin 10 mg Tab [F] 20 mg 2 tab(s), Oral, Once a day (at bedtime) tamsulosin 0.4 mg Cap [F] 0.4 mg 1 cap(s), Oral, Daily Continuous: (1) Sodium Chloride 0.9% 1,000 mL 1,000 mL, IV, 25 mL/hr PRN: (4) benzocaine/butamben/tetracaine topical 14%-2%-2% SOLN [F] 3 spray(s), Topical, q2min fentaNYL 50 mcg/mL SOLN 1 mL [F] 100 mcg 2 mL, IV Push, q2min midazolam 1 mg/mL preservative-free Inj 2 mL [F] 2 mg 2 mL, IV Push, As Directed ondansetron 2 mg/mL Inj [F] 4 mg 2 mL, IV Push, q6hr Problem list: Active Problems (39) high cholesterol Abdominal pain, generalized Abnormal abdominal CT scan (more content not included)...[facility] HospitalComment on above:Result Comment: Electronically Signed By: Ayana CHATMAN, Marilyn Young.br\Date and Time Signed: 06/21/2411:48 [id number] NoteProgress Note-Physician Assessment/Plan ASSESSMENT: 78-year-old deaf right-handed man. Acute ischemic stroke, with several areas of ischemia in the right cerebral hemisphere. The largestarea of ischemia involves the right precentral and postcentral central sulcus cortex and subcortical areas, there is a small amount of ischemia in the right frontal lobe cortex/subcortex, and a tiny focus in the right parietal lobe white matter. There is susceptibility suggestive of petechial hemorrhage to the right precentral cortical hand knob area, with the blood product being scant enough that there is no associated hyperdensity on a follow-up CT. He has left hemiparesis (and sensory loss) affecting left upper extremity more so than left face more so than left lower extremity. In the left upper extremity his weakness is predominantly distal, worst in the hand. It does seem to be gradually improving. As for etiology for this, it looks embolic within the right cerebral hemisphere, seemingly all within the right MCA, but the MCA looks widely patent, as does the entire intracranial extracranial arterial circulation. So I presume this is cardioembolic in origin related to his atrial fibrillation, despite the anticoagulation. He had a Watchman device placed but there are rumors that its placement was suboptimal and there was mention that there might have been some atrial appendage thrombus seen?A transthoracic echocardiogram performed yesterday did not show any thrombus. PLAN: 1. Hold the apixaban and any anticoagulation for now 2. Hold the aspirin and any antiplatelet agents for now 3. Transesophageal echocardiogram today 4. If the transesophageal echocardiogram reveals intracardiac thrombus I will recommend immediate anticoagulation even in the setting of a small amount of brain parenchymal petechial hemorrhage 5. If the transesophageal echocardiogram does not show intracardiac thrombus, the tentative plan might be to start warfarin in the next few days and let the INR gradually become therapeutic (he and his have been asked for something other than the apixaban because it was prohibitively expensive) 1. Acute ischemic stroke (I63.9: Cerebral infarction, unspecified) 2. Dizziness on standing (R42: Dizziness and giddiness) 3. Black stool (K92.1: Melena) 4. Paroxysmal atrial fibrillation (I48.0: Paroxysmal atrial fibrillation) 5. Coronary atherosclerosis (I25.10: Atherosclerotic heart disease of [place] coronary artery without angina pectoris) 6. HTN (hypertension) (I10: Essential (primary) hypertension) 7. Hyperlipidemia (E78.5: Hyperlipidemia, unspecified) 8. Deaf b/l needs sign language (H91.90: Unspecified hearing loss, unspecified ear) 9. CKD (chronic kidney disease) stage 3, GFR 30-59 ml/min (N18.3: Chronic kidney disease, stage 3 (moderate)) 10. Hypothyroidism (E03.9: Hypothyroidism, unspecified) 11. Chronic GERD (K21.9: Gastro-esophageal reflux disease without esophagitis) 12. On deep vein thrombosis (DVT) prophylaxis (Z79.899: Other intermediate (current) drug therapy) Subjective translator and interpreter used on the tablet. No new symptoms to report today. Left-sided weakness persists, but he feels like the left arm has gotten a little better. He shows me that he can easily lift it and that his weakness is largely isolated to the hand and wrist. Review of Systems GEN: No fevers or chills. CV/PULM: No chest pain. No shortness of breath. No palpitations. NEURO: No headaches. No loss of vision. No double vision. No subjective dysphagia. Objective Vitals & Measurements T: 36.2 ???C(Axillary) TMIN: 36.2 ???C(Axillary) TMAX: 36.8 ???C(Axillary) HR: 57(Monitored) RR: 16BP: 127/74 SpO2: 94% WT: 88.9 kg Intake & Output This visit (24 hour periods starting at 07:00 EDT) 06/21/24 * 06/20/24 06/19/24 Total Summary Intake mL -- -- 2 Output mL -- -- 550 Fluid Balance -- -- -548 Intake (1) ondansetron mL -- -- 2 Total -- -- 2 Output (1) Urine Voided mL -- -- 550 Total -- -- 550 Counts (2) Stool Count -- 1 1 Urine Count -- 2 -- * This column has not completed the indicated time period. Physical Exam GEN: General appearance normal. Well-kempt. No distress. No visualized deformities or trauma. CARDIO/VASC: Limbs without significant edema and appear well-perfused. PULM: Normal work of breathing. SKIN: Visualized skin is intact and without lesions aside from age-related findings. MS: Affect is normal. Patient is alert. Normal attention. LANG: Uses sign language. EYES: Pupils equal/reactive/consensual. Ocular motility full. No pathologic nystagmus. Visual medeiros are full to finger counting. CN: Facial sensation normal. Hearing acuity normal. Left facial droop. MOTOR: Muscle bulk normal. Muscle tone seems normal. Moderate left upper extremity weakness, +5/5 proximally at the shoulder, +5/5 with elbow flexion/extension, +4/5 at wrist and hand, sahil (more content not included)... [facility] HospitalComment on above:Result Comment: Electronically Signed By: Soo Ordonez RN\.br\Date and Time Signed: 06/21/24 09:05 EDT\.br\Electronically Co-Signed By: Calvin Hall DO\.br\Date and Time Co- Signed: 06/21/24 09:34 [id number] NoteConsultation Note Chief Complaint Left facial drooping and left body weakness Reason for Consultation Stroke History of Present Illness 78-year-old deaf right-handed man. [employer] using sign language is used to communicate with both him and his , who is also deaf. He says that he first noticed something was wrong this past Monday when he was trying to screw on a showerhead and found that he was having a lot of weakness with his left hand. He came here for evaluation yesterday with left hemiparesis mostly involving the left upper extremity and in the face. And he says it feels numb. He did not have headache. He takes apixaban at home. His said it is very expensive and she wants something else. He currently feels lightheaded. Last night he had a CT scan of his head that was nonacute. CTA of head and neck was also unremarkable. MRI from this morning shows stroke which is further discussed below. Review of Systems GEN: No fevers or chills. CV/PULM: No chest pain. No shortness of breath. No palpitations. NEURO: No headaches. No loss of vision. No double vision. No dysphagia. Numbness, see above. Weakness, see above. Physical Exam Vitals & Measurements T: 36.6 ???C(Oral) TMIN: 36.5 ???C(Oral) TMAX: 36.8 ???C(Oral) HR: 61(Peripheral) RR: 18 BP: 141/75SpO2: 96% HT: 170.18 cm WT: 93.7 kg GEN: General appearance normal. Well-kempt. No distress. No visualized deformities or trauma. CARDIO/VASC: Limbs without significant edema and appear well-perfused. PULM: Normal work of breathing. SKIN: Visualized skin is intact and without lesions aside from age-related findings. MS: Affect is normal. Patient is alert. Normal attention. LANG: Uses sign language. EYES: Pupils equal/reactive/consensual. Ocular motility full. No pathologic nystagmus. Visual medeiros are full to finger counting. CN: Facial sensation normal. Hearing acuity normal. Left facial droop. MOTOR: Muscle bulk normal. Muscle tone seems normal. Moderate left upper extremity weakness, +5/5 proximally at the shoulder, +4/5 with elbow flexion/extension, +3/5 at wrist and hand, and near paralysis of supination. Left lower extremity with subtle weakness throughout, generally still graded as +5/5. REFLEXES: Reflexes normoactive throughout. No pathologic reflexes. SENSORY: Light touch normal. Vibratory sensation intact in distal extremities. CEREBELLAR: No limb ataxia. Date/Time:06/20/24 Level of Consciousness: Alert = 0 Current month and age: Answers both correctly = 0 Open and close eyes/investigative reporter release hand: Obeys both correctly = 0 Best gaze: Normal = 0 Visual field testing: No visual field loss = 0 Facial paresis: Normal symmetric movement = 0 Motor function left arm: Some effort = 2 Motor function right arm: Normal = 0 Motor function left leg: Drift = 1 Motor function right leg: Normal = 0 Limb ataxia: No ataxia = 0 Sensory: Severe to total sensory loss = 2 Best language: No aphasia = 0 Dysarthria: Normal articulation = 0 Extinction and inattention: Normal = 0 Total Score (severe deficit >22): 5 Notes: Assessment/Plan ASSESSMENT: Acute ischemic stroke, with several areas of ischemia in the right cerebral hemisphere. The largestarea of ischemia involves the right precentral and postcentral central sulcus cortex and subcortical areas, there is a small amount of ischemia in the right frontal lobe cortex/subcortex, and a tiny focus in the right parietal lobe white matter. There is susceptibility suggestive of petechial hemorrhage to the right precentral cortical hand knob area. There was no hyperintensity in that area on the CT from last evening at 9 PM, so this is likely an interval development. As for etiology for this, it looks embolic within the right cerebral hemisphere, seemingly all within the right MCA, but the MCA looks widely patent, as does the entire intracranial extracranial arterial circulation. So I presume this is cardioembolic in origin related to his atrial fibrillation, despite the anticoagulation. PLAN: 1. Hold the apixaban and any anticoagulation 2. Hold the aspirin and any antiplatelet agents 3. Noncontrast CT of the head at 4 PM today, approximately 6 hours after the MR images, and stat CThead with any new focal neurological deficits or change in mentation. 4. Goal blood pressures for now would be to keep SBP less than 180, he has been okay 1. Acute ischemic stroke (I63.9: Cerebral infarction, unspecified) 2. CKD (chronic kidney disease) stage 3, GFR 30-59 ml/min (N18.3: Chronic kidney disease, stage 3 (moderate)) 3. Deaf b/l needs sign language (H91.90: Unspecified hearing loss, unspecified ear) 4. Chronic GERD (K21.9: Gastro-esophageal reflux disease without esophagitis) 5. Coronary atherosclerosis (I25.10: Atherosclerotic heart disease of [place] coronary artery without angina pectoris) 6. Hyperlipidemia (E78.5: Hyperlipidemia, unspecified) 7. Hypothyroidism (E03.9: Hypothyroidism, unspecified) 8. Paroxysmal atrial (more content not included)...[facility] Comment on above:Result Comment: Electronically Signed By: Calvin Hall DO\angelica\Date and Time Signed: 06/21/24 09:23 [id number] NoteProgress Note-Physician Assessment/Plan All interactions/assessments completed w/ Ipad signal worker helper -Alerted nursing that med rec needs to be reviewed for accuracy - awaiting this fall all dx. 1. Acute ischemic stroke (I63.9: Cerebral infarction, unspecified) + embolic CVA -CT head: no acute process, + chronic findings -CTA head/neck: no acute process -MRI Brain: Acute/subacute ischemia in the right frontal and right parietal lobes. Possible interval development of parenchymal hemorrhage. -Defer mgt. to neuro -Consult neuro: -Repeat CT head at 16:00 - pending -Hold asa/AC/chemical DVTp until repeat CT head is reviewed -Keep bp < 180 2. Dizziness on standing (R42: Dizziness and giddiness) 2/2 embolic CVA -CXR: No acute process -UA - neg for infectious process -Orthostatic v.s. - pending -IV antiemetics prn -TSH level - wnl -B12 def -> supplements -Fall precautions -Neurology following 3. Black stool (K92.1: Melena) Pt. states stool is black for the last week -Is on ferrous sulfate 2/2 anemia -> H&H is stable -Hemoccult stool - pending 4. Paroxysmal atrial fibrillation (I48.0: Paroxysmal atrial fibrillation) Per neuro who spoke w/ family + watchman's device - however in post cardiac f/u they were told cardio was unhappy with the placement. -Family reports hx. of cardiac thrombus -Echo - pending 5. Coronary atherosclerosis (I25.10: Atherosclerotic heart disease of [place] coronary artery without angina pectoris) 6. HTN (hypertension) (I10: Essential (primary) hypertension) 7. Hyperlipidemia (E78.5: Hyperlipidemia, unspecified) 8. Deaf b/l needs sign language (H91.90: Unspecified hearing loss, unspecified ear) Ipad sign language for all interactions 9. CKD (chronic kidney disease) stage 3, GFR 30-59 ml/min (N18.3: Chronic kidney disease, stage 3 (moderate)) Baseline Cr - suspect 1.6 - 1.8 - no recent labs -UA - no infectious process -Trend BMP -Avoid nephrotoxic medications as much as possible -Consult nephrology: If Cr worsens 10. Hypothyroidism (E03.9: Hypothyroidism, unspecified) 11. Chronic GERD (K21.9: Gastro-esophageal reflux disease without esophagitis) 12. On deep vein thrombosis (DVT) prophylaxis (Z79.899: Other intermediate (current) drug therapy) -Avoid chemical DVTp as above -Hold apixaban as above -SCDs, early ambulation Orders: cyanocobalamin, 1,000 microgram = 1 tab(s), Tab, Oral, Daily, Routine, Start date 06/21/24 9:00:00 EDT, 06/20/24 12:10:00 EDT Orthostatic Vitals Signs Referral to [facility] Stool Occult Blood -Plan discussed w/ patient, nursing staff and CRM. This report was transcribed using voice recognition software. Every effort was made to ensure accuracy, however, inadvertently computerized manager custom mistakes may be present. Subjective No acute events overnight. Patient denies CP, pressure, palpitations, N/V, SOB or paresthesia. Review of Systems Constitutional: + fatigue/malaise, dizziness, difficulty swallowing this a.m. Respiratory: Negative Cardiovascular: Negative. Gastrointestinal: Denies abd pain. Passing flatus. Last BM: 06/19 Additional ROS info: Except as noted in the above Review of Systems and in the History of Present Illness all other systems have been reviewed and are negative or noncontributory Objective Vitals & Measurements T: 36.6 ???C(Axillary) TMIN: 36.5 ???C(Oral) TMAX: 36.9 ???C(Axillary) HR: 62(Monitored) RR: 18 BP:137/82 SpO2: 96% HT: 170.18 cm WT: 93.7 kg Intake & Output This visit (24 hour periods starting at 07:00 EDT) 06/20/24 * 06/19/24 06/18/24 Total Summary Intake mL -- 2 -- Output mL -- 550 -- Fluid Balance -- -548 -- Intake (1) ondansetron mL -- 2 -- Total -- 2 -- Output (1) Urine Voided mL -- 550 -- Total -- 550 -- Counts (2) Stool Count -- 1 -- Urine Count 1 -- -- * This column has not completed the indicated time period. Physical Exam General: Calm, able to communicate needs, NAD Head: Normocephalic/atraumatic Eyes: Pupils equal, round, and reactive to light. Conjunctivae and sclerae normal, and extraocular movements intact HEENT: + deaf, Mucous membrane moist. Tongue normal Neck: Trachea midline, neck supple, Chest: No chest wall deformity, no chest wall tenderness Lungs: CTA medeiros, no cough Cardio: Normal rate, currently in Afib w/ CVR, no edema. Pulses: Normal capillary refill Abdomen: Soft, non-distended, non-tender, normal BS Musculoskeletal: No deformity or scoliosis noted. Normal ROM for age. Integumentary: Warm, dry, Extremity: No clubbing, Neurologic: Alert, oriented x 4, follows commands, Level of Consciousness: Alert = 0 Current month and age: Answers both correctly = 0 Open and close eyes/investigative reporter release hand: Obeys both correctly = 0 Best gaze: Normal = 0 Visual field testing: No visual field loss = 0 Facial paresis: Normal symm (more content not included)...[facility]Result Comment: Electronically Signed By: Shelley CHOWDARY\.br\Date and Time Signed: 06/20/24 13:47 EDT\.br\Electronically Co- Signed By: Forest Zavala DO\.br\Date and Time Co-Signed: 06/20/24 16:03 [id number] NoteEchocardiology Procedure Exam Date/Time Accession # Ordering Dr. Rodríguez Transthoracic 06/20/2024 13:13 EDT [id number] Calvin Hall DO Complete CPT code 52946 [id number] Reason for Exam (Echo Transthoracic Complete) CVA Report [facility] [address] [place] [address] Adult Echocardiogram Report Name: AYAD DE LA ROSA Study Date: 06/20/2024 12:17 PM BP: 137/82 mmHg Patient Location: 2N [id number] 01 [facility] Bed(s) [facility] HR: 74 : 1945 Gender: Male Height: 66.5 in Age: 78 yrs Ethnicity: T Weight: 207 lb Reason For Study: CVA BSA: 2.0 m2 History: Watchman device, Hypercholesterolemia, obesity, CAD, DM, PAF, CHF, HI, Cardiomyopathy Ordering Physician: Calvin Hall Performed By: Fauzia Irving [facility] Interpretation Summary Left ventricular ejection fraction is [...] There is no pericardial effusion. MMode/2D Measurements & Calculations RVDd: 2.7 cm LVIDd: 4.9 cm FS: 13.8 % Ao root diam: 3.3 cm IVSd: 0.90 cm LVIDs: 4.2 cm EDV(Teich): 113.1 ml Ao root area: 8.6 cm2 LVPWd: 0.93 cm ESV(Teich): 79.9 ml LA dimension: 4.2 cm EF(Teich): 29.4 % asc Aorta Diam: 3.3 cm LVLd ap4: 8.5 cm EDV(MOD-sp2): 131.0 ml SV(MOD-sp4): 54.2 ml EDV(MOD-sp4): 131.0 ml ESV(MOD-sp2): 76.4 ml LVLs ap4: 7.9 cm EF(MOD-sp2): 41.7 % ESV(MOD-sp4): 76.8 ml EF(MOD-sp4): 41.4 % TAPSE: 2.1 cm IVC Diam: 2.1 cm RVIDd/LVIDd: 0.55 EF (MOD-bp): 41.5 % LA Vol Index: 47.3 ml/m2 Doppler Measurements & Calculations MV E max vanna: 106.0 cm/sec MV dec time: 0.15 sec Ao V2 max: 153.0 cm/sec LV V1 max P.2 mmHg Lat Peak E' Vanna: 6.7 cm/sec Ao max P.4 mmHg LV V1 mean P.0 mmHg Echocardiology Report E/E' Lat: 15.8 Ao V2 mean: 102.0 cm/sec LV V1 max: 54.8 cm/sec Med Peak E' Vanna: 4.9 cm/sec Ao mean P.0 mmHg LV V1 mean: 35.6 cm/sec E/E' Med: 21.4 Ao V2 VTI: 32.1 cm LV V1 VTI: 11.3 cm TR max vanna: 319.0 cm/sec RAP systole: 3.0 mmHg AV VR: 0.36 TR max P.7 mmHg RVSP(TR): 43.7 mmHg FINAL REPORT Dictated: 06/20/2024 12:17 pm Floyd Galdamez MD Signed (Electronic Signature): 06/20/2024 2:06 pm Signed by: Floyd Galdamez MD Transcribed by: LISE Technologist: [facility]10-31-2024 Note Consultation Note Chief Complaint Left facial drooping and left body weakness Reason for Consultation Stroke History of Present Illness 78-year-old deaf right-handed man. [employer] using sign language is used to communicate with both him and his , who is also deaf. He says that he first noticed something was wrong this past Monday when he was trying to screw on a showerhead and found that he was having a lot of weakness with his left hand. He came here for evaluation yesterday with left hemiparesis mostly involving the left upper extremity and in the face. And he says it feels numb. He did not have headache. He takes apixaban at home. His said it is very expensive and she wants something else. He currently feels lightheaded. Last night he had a CT scan of his head that was nonacute. CTA of head and neck was also unremarkable. MRI from this morning shows stroke which is further discussed below. Review of Systems GEN: No fevers or chills. CV/PULM: No chest pain. No shortness of breath. No palpitations. NEURO: No headaches. No loss of vision. No double vision. No dysphagia. Numbness, see above. Weakness, see above. Physical Exam Vitals & Measurements T: 36.6 ???C(Oral) TMIN: 36.5 ???C(Oral) TMAX: 36.8 ???C(Oral) HR: 61(Peripheral) RR: 18 BP: 141/75SpO2: 96% HT: 170.18 cm WT: 93.7 kg GEN: General appearance normal. Well-kempt. No distress. No visualized deformities or trauma. CARDIO/VASC: Limbs without significant edema and appear well-perfused. PULM: Normal work of breathing. SKIN: Visualized skin is intact and without lesions aside from age-related findings. MS: Affect is normal. Patient is alert. Normal attention. LANG: Uses sign language. EYES: Pupils equal/reactive/consensual. Ocular motility full. No pathologic nystagmus. Visual medeiros are full to finger counting. CN: Facial sensation normal. Hearing acuity normal. Left facial droop. MOTOR: Muscle bulk normal. Muscle tone seems normal. Moderate left upper extremity weakness, +5/5 proximally at the shoulder, +4/5 with elbow flexion/extension, +3/5 at wrist and hand, and near paralysis of supination. Left lower extremity with subtle weakness throughout, generally still graded as +5/5. REFLEXES: Reflexes normoactive throughout. No pathologic reflexes. SENSORY: Light touch normal. Vibratory sensation intact in distal extremities. CEREBELLAR: No limb ataxia. Date/Time:06/20/24 Level of Consciousness: Alert = 0 Current month and age: Answers both correctly = 0 Open and close eyes/investigative reporter release hand: Obeys both correctly = 0 Best gaze: Normal = 0 Visual field testing: No visual field loss = 0 Facial paresis: Normal symmetric movement = 0 Motor function left arm: Some effort = 2 Motor function right arm: Normal = 0 Motor function left leg: Drift = 1 Motor function right leg: Normal = 0 Limb ataxia: No ataxia = 0 Sensory: Severe to total sensory loss = 2 Best language: No aphasia = 0 Dysarthria: Normal articulation = 0 Extinction and inattention: Normal = 0 Total Score (severe deficit >22): 5 Notes: Assessment/Plan ASSESSMENT: Acute ischemic stroke, with several areas of ischemia in the right cerebral hemisphere. The largestarea of ischemia involves the right precentral and postcentral central sulcus cortex and subcortical areas, there is a small amount of ischemia in the right frontal lobe cortex/subcortex, and a tiny focus in the right parietal lobe white matter. There is susceptibility suggestive of petechial hemorrhage to the right precentral cortical hand knob area. There was no hyperintensity in that area on the CT from last evening at 9 PM, so this is likely an interval development. As for etiology for this, it looks embolic within the right cerebral hemisphere, seemingly all within the right MCA, but the MCA looks widely patent, as does the entire intracranial extracranial arterial circulation. So I presume this is cardioembolic in origin related to his atrial fibrillation, despite the anticoagulation. PLAN: 1. Hold the apixaban and any anticoagulation 2. Hold the aspirin and any antiplatelet agents 3. Noncontrast CT of the head at 4 PM today, approximately 6 hours after the MR images, and stat CThead with any new focal neurological deficits or change in mentation. 4. Goal blood pressures for now would be to keep SBP less than 180, he has been okay 1. Acute ischemic stroke (I63.9: Cerebral infarction, unspecified) 2. CKD (chronic kidney disease) stage 3, GFR 30-59 ml/min (N18.3: Chronic kidney disease, stage 3 (moderate)) 3. Deaf b/l needs sign language (H91.90: Unspecified hearing loss, unspecified ear) 4. Chronic GERD (K21.9: Gastro-esophageal reflux disease without esophagitis) 5. Coronary atherosclerosis (I25.10: Atherosclerotic heart disease of [place] coronary artery without angina pectoris) 6. Hyperlipidemia (E78.5: Hyperlipidemia, unspecified) 7. Hypothyroidism (E03.9: Hypothyroidism, unspecified) 8. Paroxysmal atrial (more content not included)...[facility] Comment on above:Result Comment: Electronically Signed By: Calvin Hall DO\Date and Time Signed: 06/20/24 11:41 [id number] NoteInterdisciplinary Note - PT PT Evaluation done this date. Pt. with on AM-PAC. Difficulty with use of L UE which limits walker safety, may need kalyani walker vs cane. Min Ax1 with all activity with decreased balance and safety with gait noted. Recommend SNF, will continue to follow.[facility]10-31-2024 NoteProgress Note-Nurse 0100 History and assessment questions completed using note pad.[facility]10-31-2024 NoteHistory and Physical Basic Information Admit Date/Time:06/19/2024 22:41 Chief Complaint pt to ER c/o L facial droop and L side weakness. LKW 1730. Pt also c/o dizziness. Pt takes Eliquis.Unable to assess speech d/t pt being deaf. History of Present Illness Patient is a 78-year-old male with past medical history as noted below comes in with above-stated chief complaint. Patient is deaf and history is obtained using iPad based [place] sign language translation service. Patient states that he was using a screwdriver earlier in the day left arm started to feel very weak. Patient took a nap at around 1730 and then when he woke up he noticed left arm weakness, left facial droop and left lower extremity weakness. Patient then called squad and arrived at approximately 2[address]. Patient [address] head and CTA neck/head performed that were nonacute. When I seepatient he states that his face still feels abnormal and his left upper extremity feels abnormal. He states that his left lower extremity feels better than earlier. Patient denies any recent fevers or chills. Patient denies any chest pain, shortness of breath, vision changes. Review of Systems 14 Systems reviewed and negative except as noted in HPI. Scoring Robison Fall Risk Score: 45 High (06/19/24) Physical Exam Vitals & Measurements T: 36.5 ???C(Oral) TMIN: 36.5 ???C(Oral) TMAX: 36.6 ???C(Oral) HR: 72(Peripheral) RR: 16 BP: 136/79SpO2: 95% HT: 170.18 cm WT: 93.7 kg General: alert, no acute distress Skin: warm, dry Head: no trauma, normocephalic Neck: Trachea midline, no adenopathy, no tenderness Eye: normal conjunctiva, sclera clear ENMT: oral mucosa moist, no pharyngeal erythema or exudate. hearing grossly intact Cardiovascular: Irregular, irregular, no murmur/gallop/rub Respiratory: Lungs CTA, respirations non labored , no w/r/r Gastrointestinal: Positive bowel sound, soft, non distended, no tenderness, no guarding. Extremities: no deformity, no trauma Osteopathic: Deferred due to being noncontributory to current case. Neurological: oriented x 4, LOC appropriate for age, NIH stroke scale = 5 (+2 partial paralysis left lower face, +1 left arm drift, +1 ataxia in the left arm, +1 mild sensation loss left arm) Psychiatric: cooperative, affect appropriate for age, normal judgement, normal psychiatric thoughts. Lab Results WBC: 8.2 E9/L (06/19/24 20:50:00) RBC: 4.9 E12/L (06/19/24 20:50:00) HGB: 15.4 gm/dL (06/19/24 20:50:00) Hct: 43.8 % (06/19/24 20:50:00) MCV: 89.1 fL (06/19/24 20:50:00) MCH: 31.4 pg (06/19/24 20:50:00) MCHC: 35.2 gm/dL (06/19/24 20:50:00) RDW: 13.9 % (06/19/24 20:50:00) Platelet: 199 E9/L (06/19/24 20:50:00) MPV: 7.9 fL (06/19/24 20:50:00) Neutro Auto: 54.8 % (06/19/24 20:50:00) Lymph Auto: 32 % (06/19/24 20:50:00) Lipscomb Auto: 9.1 % (06/19/24 20:50:00) Eos Auto: 3.5 % (06/19/24 20:50:00) Basophil Auto: 0.6 % (06/19/24 20:50:00) Neutro Absolute: 4.5 E9/L (06/19/24 20:50:00) Lymph Absolute: 2.6 E9/L (06/19/24 20:50:00) Lipscomb Absolute: 0.8 E9/L (06/19/24 20:50:00) Eos Absolute: 0.3 E9/L (06/19/24 20:50:00) Basophil Absolute: 0.1 E9/L (06/19/24 20:50:00) PT: 15.6 second(s) High (06/19/24 20:50:00) INR: 1.39 (06/19/24 20:50:00) PTT: 33.5 second(s) (06/19/24 20:50:00) Glucose Lvl: 131 mg/dL (06/19/24 20:50:00) BUN: 22 mg/dL High (06/19/24 20:50:00) Creatinine: 1.9 mg/dL High (06/19/24 20:50:00) eGFR: 35 mL/min/1.73 m2 Low (06/19/24 20:50:00) BUN/Creat Ratio: 12 (06/19/24 20:50:00) Sodium Lvl: 139 mmol/L (06/19/24 20:50:00) Potassium Lvl: 4.2 mmol/L (06/19/24 20:50:00) Chloride: 107 mmol/L (06/19/24 20:50:00) CO2: 23 mmol/L (06/19/24 20:50:00) AGAP: 13 mEq/L (06/19/24 20:50:00) Calcium Lvl: 8.9 mg/dL (06/19/24 20:50:00) Alk Phos: 62 Int._Unit/L (06/19/24 20:50:00) ALT: 21 Int._Unit/L (06/19/24 20:50:00) AST: 27 Int._Unit/L (06/19/24 20:50:00) Total Protein: 7 gm/dL (06/19/24 20:50:00) Albumin Lvl: 4 gm/dL (06/19/24 20:50:00) Globulin: 3 gm/dL (06/19/24 20:50:00) A/G Ratio: 1.3 (06/19/24 20:50:00) Bili Total: 0.5 mg/dL (06/19/24 20:50:00) Troponin HS: 17.2 pg/mL (06/19/24 20:50:00) Assessment/Plan 1. Acute ischemic stroke (I63.9: Cerebral infarction, unspecified) Will check MRI/MRA head, brain, neck with and without contrast. Will check vitamin B12, folate, RPR, TSH with morning labs. Will check hemoglobin A1c and fasting lipid panel for risk stratification. Aspirin rectally until ST clears patient for oral intake. Permissive hypertension, labetalol IV as ordered below. No physical therapy, speech therapy, Occupational Therapy evaluation needed because patient has returned to baseline functional status. Consult neurology. 2. CKD (chronic kidney disease) stage 3, GFR 30-59 ml/min (N18.3: Chronic kidney disease, stage 3 (moderate)) Baseline GFR 30 to 40 mL/min 3. Deaf b/l needs sign language (H91.90: Unspecified hearing loss, unspecified ear) iPad based [place] [employer] with language interpreter used 4. Chronic GERD (more content not included)...[facility]Result Comment: Electronically Signed By: Yoselin MCNAIR DO\.br\Date and Time Signed: 06/20/24 01:10 [id number] History of Present illness Narrative* Viki Cooney MD - 03/04/2024 12:30 PM EDT Subjective : Patient is accompanied by to the office. He presents for follow-up after Watchman device. Continues to have a wobbly gait, but has not fallen recently. Uses cane as ambulatory aid. Has chronic exertional shortness of breath which is at least in part attributed to his nonischemic cardiomyopathy. We have no room blood pressure gaines to uptitrate his medications. Not orthostatic today. History so Far : Chest pain (786.50) (R07.9) Patient indicates discomfort across the anterior chest wall, details very difficult to ascertain. Mild CAD (414.00) (I25.10) December 2017 cardiac cath Mid LAD 30% Proximal circumflex 30% RCA nondominant Echo prior to cath LVEF 25% October 2020 perfusion study fixed inferior defect Non-ischemic cardiomyopathy (425.4) (I42.8) 2018 EF 25% February 2019 echo LVEF 45 to 50% October 2020 MPI LVEF 49% He has been maintained on Coreg and lisinopril since December 2017. Presents today off medication with addition of midodrine. I cannot elicit any type of orthopnea or PND, no dyspnea on exertion ambulating from exam room to front of office Persistent atrial fibrillation (427.31) (I48.19) EKG in office normal sinus rhythm on amiodarone 200 mg daily, QTC 450 November 2020 cardioversion Anticoagulated (V58.61) (Z79.01) CHADS VASc 3 full dose Eliquis age 76, weight 192 High risk medication use (V58.69) (Z79.899) Amiodarone start date March 2018 Amio was discontinued because patient had very wobbly wide-based gait, and was falling frequently, I could not exclude Amio side effect. 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 [employer] My[employer] July 2022-normal perfusion LVEF 47% with mild global hypokinesis transient ischemic dilatation 1.01 which is normal Underwent left atrial appendage closure using 27 mm Watchman device February 09 2024, at which time anticoagulation was discontinued. Objective Wt Readings from Last 3 Encounters: 03/04/24 88.5 kg (195 lb 3.2 oz) 02/09/24 83.9 kg (185 lb) 12/27/23 87.5 kg (193 lb) Vitals: 03/04/24 1230 BP: 118/58 BP Location: Left arm Patient Position: Sitting Pulse: 70 Weight: 88.5 kg (195 lb 3.2 oz) Physical Exam: GENERAL APPEARANCE: in no acute distress. CHEST: Symmetric and non-tender. INTEGUMENT: Skin warm and dry HEENT: No gross abnormalities identified.No pallor or scleral icterus. NECK: Supple, no JVD, no bruit. NEURO/PSHCY: Alert and oriented x3; appropriate behavior and responses and responses LUNGS: Clear to auscultation bilaterally; normal respiratory effort. HEART: Rate and rhythm irregular with no evident murmur; no gallop appreciated. ABDOMEN: Soft, non tender. MUSCULOSKELETAL: No gross deformities. EXTREMITIES: Warm There is no edema noted. Meds: Current Outpatient Medications Medication Instructions aspirin 81 mg, oral, Daily clopidogrel (PLAVIX) 75 mg, oral, Daily ergocalciferol (VITAMIN D-2) 50,000 Units, oral, Once Weekly, EVERY MONDAY ferrous sulfate 325 (65 Fe) MG tablet 65 mg of iron, oral, 2 times daily, MONDAY, MONDAY, MONDAY finasteride (Proscar) 5 mg tablet 1 tablet, oral, Daily levothyroxine (Synthroid, Levoxyl) 75 mcg tablet 1 tablet, oral, Daily multivitamin tablet 1 tablet, oral, Daily pantoprazole (ProtoNix) 40 mg EC tablet 1 tablet, oral, Daily simvastatin (Zocor) 20 mg tablet 1 tablet, oral, Daily tamsulosin (Flomax) 0.4 mg 24 hr capsule 1 capsule, oral, Daily valsartan (DIOVAN) 40 mg, oral, Daily No Known Allergies LABS: No results found for: WBC , HGB , HCT , PLT , CHOL , TRIG , HDL , LDLDIRECT , ALT , AST , NA , K , CL , CREATININE , BUN , CO2 , TSH , PSA , INR , GLUF , HGBA1C , ALBUR Patient Active Problem List Diagnosis Date Noted Presence of Watchman left atrial appendage closure device 03/04/2024 Deaf mutism, congenital 12/08/2023 Falls frequently 12/08/2023 Never smoked tobacco 12/04/2023 BMI 31.0-31.9,adult 12/04/2023 Encounter to discuss test results 05/25/2023 Chest pain 05/24/2023 Mild CAD 05/24/2023 Mixed hyperlipidemia 05/24/2023 Non-ischemic cardiomyopathy (Multi) 05/24/2023 Sympathotonic orthostatic hypotension 05/24/2023 BPH (benign prostatic hyperplasia) 05/24/2023 CHF (congestive heart failure), NYHA class II (Multi) 05/24/2023 Diarrhea 05/24/2023 Dizziness 05/24/2023 First degree AV block 05/24/2023 Gait disturbance 05/24/2023 Risk for falls 05/24/2023 Shortness of breath 05/24/2023 Stage 3a chronic kidney disease (Multi) 05/24/2023 Tremor 05/24/2023 Atrial fibrillation (Multi) 01/09/2024 Assessment: 1. Chronic systolic congestive heart failure, NYHA class 2 (Multi) 2. Non-ischemic cardiomyopathy (Multi) 3. Mild CAD 4. Persistent atrial fibrillation (Multi) 5. Mixed hyperlipidemia 6. Sympathotonic orthostatic hypotension 7. Stage 3a chronic kidney disease (Multi) 8. Presence of Watchman left atrial appendage closure device 9. BMI 31.0-31.9,adult Follow up : 6 months CTA post watchman is scheduled at [facility], patient is requesting a closer location, will discuss with Dr. Santiago. Turns out that he drove group home home after his Watchman device, and says that the drive isvery difficult for him and the traffic is too heavy. I reiterated to him that he should not be driving on the day of his procedures. Scribe Attestation By signing my name below, I, Liliane Paulino LPN , Morris attest that this documentation has been prepared under the direction and in the presence of Viki Cooney MD. Provider Attestation - Scribe documentation All medical record entries made by the Scribe were at my direction and personally dictated by me. Denise reviewed the chart and agree that the record accurately reflects my personal performance of the history, physical exam, discussion and plan. documented in this [facility] Work Phone: [phone]) 890-370107-15-2024 Instructions* Patient Instructions* Liliane Matos LPN - 03/04/2024 12:30 PM EDT Please bring all medicines, vitamins, and herbal supplements with you when you come to the office. Prescriptions will not be filled unless you are compliant with your follow up appointments or have a follow up appointment scheduled as per instruction of your physician. Refills should be requested at the time of your visit. End may CTA of chest, messaged Dr. Santiago about scheduling at [facility] instead of [facility]. documented in this [facility] Work Phone: 1([phone]) 574-606406-21-2024 Hospital course Narrative* Idalmis Christine MD - 02/09/2024 8:20 PM EDT Discharge Diagnosis Atrial fibrillation (Multi) Test Results Pending At Discharge Pending Labs No current pending labs. Hospital Course 78 years old male who came for elective left atrial appendage closure. The patient underwent successful procedure using 27 Watchman device. No complications were observed during the procedure. The patient will be monitored for a few hours for the groin site, then will be ambulated and an echocardiogram will be performed. If all of those steps are reassuring patient will be discharged home later today. The patient will continue dual antiplatelet therapy for 6 months, antibiotic prophylaxis for 6 months. They will be discharged with follow-up CT and clinic visit instructions. CTA/EULALIA at 4 months is required to reassess device positioning and rule out any device leak or device related thrombus. Home Medications Medication List START taking these medications aspirin 81 mg chewable tablet; Chew 1 tablet (81 mg) once daily. clopidogrel 75 mg tablet; Commonly known as: Plavix; Take 1 tablet (75 mg) by mouth once daily. CONTINUE taking these medications citalopram 10 mg tablet; Commonly known as: CeleXA ergocalciferol 1.25 MG (98004 UT) capsule; Commonly known as: Vitamin D-2 ferrous sulfate (325 mg ferrous sulfate) tablet finasteride 5 mg tablet; Commonly known as: Proscar levothyroxine 75 mcg tablet; Commonly known as: Synthroid, Levoxyl multivitamin tablet pantoprazole 40 mg EC tablet; Commonly known as: ProtoNix simvastatin 20 mg tablet; Commonly known as: Zocor tamsulosin 0.4 mg 24 hr capsule; Commonly known as: Flomax STOP taking these medications Eliquis 5 mg tablet; Generic drug: apixaban ASK your doctor about these medications valsartan 40 mg tablet; Commonly known as: Diovan; TAKE 1 TABLET BY MOUTH EVERY DAY Outpatient Follow-Up Future Appointments Date Time Provider Department Center 02/29/2024 11:00 AM Viki Cooney MD [id number] [facility] 06/03/2024 10:00 AM Viki Cooney MD [id number] [facility] 06/10/2024 11:30 AM [facility] CAI CT 1 [facility] Rad Cent Idalmis Christine MD documented in this [facility] Work Phone: 1([phone]) 327-462106-21-2024 Miscellaneous Notes* Post-Procedure Note - Idalmis Christine MD - 02/09/2024 5:25 PM EDT Physician Transition of Care Summary Invasive Cardiovascular Lab Procedure Date: 02/09/2024 Attending: * Adebayo Santiago - Primary Resident/Fellow/Other Mobile Equipment Operator: Surgeons and Role: * Idalmis Christine MD - Fellow Indications: Pre-op Diagnosis * Atrial fibrillation, unspecified type (Multi) [I48.91] Post-procedure diagnosis: Post-op Diagnosis * Atrial fibrillation, unspecified type (Multi) [I48.91] Procedure(s): LAAO (Left Atrial Appendage Occlusion) 95950 - [place] EXCLUSION LEFT ATRIAL APPENDAGE OPEN ANY METHOD [place] PERQ CLSR TCAT L ATR APNDGE W/ENDOCARDIAL IMPLNT [[id number]] Description of the Procedure: S/p JOE closure Access: Dual right femoral vein access Closure: Primary : Perclose Secondary: Vascade Device: After confirmation of the device position on fluoroscopy and ICE, anchor with a tug test, compression and seal a 27 mm Watchman was successfully deployed without any immediate complications. No effusion on ICE was present pre and post watchman deployment. Recommendations: DAPT CTA/EULALIA at 4 months is required to reassess device positioning and rule out any device leak or device related thrombus. Tele access site monitoring. TTE Likely discharge home today once recovery and monitoring period is complete. Stents/Implants: Implants Type Not Specified 27mm Watchman Flx Left Atrial Appendage Closure Device With Delivery System - Implanted Model/Cat number: [id number] Lot number: [id number] Device identifier: [id number] As of 02/09/2024 Status: Implanted Estimated Blood Loss: 5 mL Anesthesia: Moderate Sedation Anesthesia Staff: No anesthesia staff entered. Any Specimen(s) Removed: Order Name Source Comment Collection Info Order Time TYPE AND SCREEN Blood, Venous 02/09/2024 4:40 PM Release result to MyChart Immediate ABORH Blood, Venous 02/09/2024 4:40 PM Release result to MyChart Immediate Electronically signed by: Idalmis Christine MD, 02/09/2024 8:18 PM * Pre-Sedation Documentation - Kimani Meng MD - 02/09/2024 1:26 PM EDT Sedation Plan ASA 2 Mallampati class: II. Risks, benefits, and alternatives discussed with patient. documented in this [facility] Work Phone: 1(384) 289-516606-21-2024 Note* Post-Procedure Note - Idalmis Christine MD - 02/09/2024 5:25 PM EDT Physician Transition of Care Summary Invasive Cardiovascular Lab Procedure Date: 02/09/2024 Attending: * Adebayo Santiago - Primary Resident/Fellow/Other Mobile Equipment Operator: Surgeons and Role: * Idalmis Christine MD - Fellow Indications: Pre-op Diagnosis * Atrial fibrillation, unspecified type (Multi) [I48.91] Post-procedure diagnosis: Post-op Diagnosis * Atrial fibrillation, unspecified type (Multi) [I48.91] Procedure(s): LAAO (Left Atrial Appendage Occlusion) 92999 - [place] EX[place] LEFT ATRIAL APPENDAGE OPEN ANY METHOD [place] PERQ CLSR TCAT L ATR APNDGE W/ENDOCARDIAL IMPLNT [[id number]] Description of the Procedure: S/p JOE closure Access: Dual right femoral vein access Closure: Primary : Perclose Secondary: Vascade Device: After confirmation of the device position on fluoroscopy and ICE, anchor with a tug test, compression and seal a 27 mm Watchman was successfully deployed without any immediate complications. No effusion on ICE was present pre and post watchman deployment. Recommendations: DAPT CTA/EULALIA at 4 months is required to reassess device positioning and rule out any device leak or device related thrombus. Tele access site monitoring. TTE Likely discharge home today once recovery and monitoring period is complete. Stents/Implants: Implants Type Not Specified 27mm Watchman Flx Left Atrial Appendage Closure Device With Delivery System - Implanted Model/Cat number: [id number] Lot number: [id number] Device identifier: [id number] As of 02/09/2024 Status: Implanted Estimated Blood Loss: 5 mL Anesthesia: Moderate Sedation Anesthesia Staff: No anesthesia staff entered. Any Specimen(s) Removed: Order Name Source Comment Collection Info Order Time TYPE AND SCREEN Blood, Venous 02/09/2024 4:40 PM Release result to MyChart Immediate ABORH Blood, Venous 02/09/2024 4:40 PM Release result to MyChart Immediate Electronically signed by: Idalmis Christine MD, 02/09/2024 8:18 PM [facility] Work Phone: 1([phone]) 571-656406-21-2024 History of Present illness Narrative* Leonel Ellis, [facility] - 02/09/2024 3:12 PM EDT Pharmacy Medication History Review Ayad De La Rosa is a 78 y.o. male admitted for Atrial fibrillation (Multi). Pharmacy reviewed the patient's [id number] medications and allergies for accuracy. The list below reflects the updated [employer] list. Comments regarding how patient may be taking medications differently can be found in the Admit Orders Activity Prior to Admission Medications Prescriptions Last Dose Informant Patient Reported? Eliquis 5 mg tablet 02/04/2024 Self Yes Sig: Take 1 tablet (5 mg) by mouth 2 times a day. citalopram (CeleXA) 10 mg tablet 02/08/2024 Self Yes Sig: Take 1 tablet (10 mg) by mouth once daily. ergocalciferol (Vitamin D-2) 1.25 MG (30074 UT) capsule Past Week Self Yes Sig: Take 1 capsule (50,000 Units) by mouth 1 (one) time per week. EVERY MONDAY ferrous sulfate 325 (65 Fe) MG tablet 02/08/2024 Self Yes Sig: Take 1 tablet by mouth 2 times a day. MONDAY, MONDAY, MONDAY finasteride (Proscar) 5 mg tablet 02/08/2024 Self Yes Sig: Take 1 tablet (5 mg) by mouth once daily. levothyroxine (Synthroid, Levoxyl) 75 mcg tablet 02/08/2024 Self Yes Sig: Take 1 tablet (75 mcg) by mouth once daily. multivitamin tablet 02/08/2024 Self Yes Sig: Take 1 tablet by mouth once daily. pantoprazole (ProtoNix) 40 mg EC tablet 02/08/2024 Self Yes Sig: Take 1 tablet (40 mg) by mouth once daily. simvastatin (Zocor) 20 mg tablet 02/08/2024 Self Yes Sig: Take 1 tablet (20 mg) by mouth once daily. tamsulosin (Flomax) 0.4 mg 24 hr capsule 02/08/2024 Self Yes Sig: Take 1 capsule (0.4 mg) by mouth once daily. valsartan (Diovan) 40 mg tablet Not Taking Self No Sig: TAKE 1 TABLET BY MOUTH EVERY DAY Patient not taking: Reported on 02/09/2024 Facility-Administered Medications: None The list below reflects the updated allergy list. Please review each documented allergy for additional clarification and justification. Allergies Reviewed by Leonel Ellis RPh on 02/09/2024 No Known Allergies M2B service not offered prior to surgery, please reassess prior to patient discharge if Meds to Beds is desired. Local Pharmacy: [facility] Sources: Pt interview - with Rx bottles. Interview completed by writing notes. SHAN unavailable. Dispense hx OARRS Additional Comments: None Leonel Ellis PharmD Transitions of Care Pharmacist 02/09/24 Secure Chat preferred If no response call [employer] or [employer] documented in this [facility] Work Phone: [phone]) [phone] Note* Pre-Sedation Documentation - Kimani Meng MD - 02/09/2024 1:26 PM EDT Sedation Plan ASA 2 Mallampati class: II. Risks, benefits, and alternatives discussed with patient. [facility] Work Phone: [phone]) 607-702306-21-2024 History and physical note* Kimani Meng MD - 02/09/2024 1:25 PM EDT I was asked by Dr. Cooney to evaluate this patient in consultation for evaluation of left atrial appendage closure. The patient is a 78 year old male with PMH of A-fib, orthostatic hypotension, who falls frequently due to poor balance, feels dizzy with changes in posture. Fortunately, none of these falls resulted in severe bodily injuries or ER visits. His primary maintenance person is concerned about Eliquis given his frequent falling. Patient says he has history of anemia and required blood transfusion 3 years ago. The patient has LVEF 25% Given the patient's significant history of poor balance and falls , the patient is referred for consideration of left atrial appendage closure for stroke risk reduction. ROS: Constitutional: no fatigue Eyes: no acute eye problems, no blurred vision, no diplopia, no eye pain ENT: no earache, no sore throat Cardiovascular: no dyspnea on exertion, no chest pain Respiratory: no chronic cough, not coughing up sputum, no wheezing that is consistent with asthma Gastrointestinal: no acute bowel complaints Musculoskeletal: no acute arthralgias, no acute myalgias, no acute joint swelling Skin: no skin rashes, no change in skin color and pigmentation, no skin lesions and no skin lumps. Neurological: no headaches, does report dizziness, no tingling, no fainting and no limb weakness. All other systems have been reviewed and are negative for complaint. Physical Exam: Visit Vitals Smoking Status Never Constitutional: alert and in no acute distress. Eyes: no erythema, swelling or discharge from the eye . . Neck: neck is supple, symmetric, trachea midline, no masses and no thyromegaly . Pulmonary: no increased work of breathing or signs of respiratory distress , lungs clear to auscultation. , normal percussion of chest and chest palpation normal . Cardiovascular: RRR, no murmur, no leg edema, non-displaced PMI, no S3 or S4 Abdomen: abdomen non-tender, no masses and no hepatomegaly . Neurologic: non-focal neurologic examination. Psychiatric judgment and insight is normal , oriented to person, place and time , normal mood and affect . Labs: Results for orders placed or performed in visit on 09/27/23 Holter Or Event Public Policy Coordinator Result Value Ref Range BSA 2.04 m2 Medications: Current Outpatient Medications Medication Instructions citalopram (CeleXA) 10 mg tablet 1 tablet, oral, Daily Eliquis 5 mg tablet 1 tablet, oral, 2 times daily ergocalciferol (VITAMIN D-2) 50,000 Units, oral, Once Weekly, EVERY MONDAY ferrous sulfate 325 (65 Fe) MG tablet 65 mg of iron, oral, 2 times daily, MONDAY, MONDAY, MONDAY finasteride (Proscar) 5 mg tablet 1 tablet, oral, Daily levothyroxine (Synthroid, Levoxyl) 75 mcg tablet 1 tablet, oral, Daily multivitamin tablet 1 tablet, oral, Daily pantoprazole (ProtoNix) 40 mg EC tablet 1 tablet, oral, Daily simvastatin (Zocor) 20 mg tablet 1 tablet, oral, Daily tamsulosin (Flomax) 0.4 mg 24 hr capsule 1 capsule, oral, Daily valsartan (DIOVAN) 40 mg, oral, Daily Assessment: This is a 78 year old male with PMH of Afib on Eliquis, NICM, CKD who has orthostatic hypotension/poor balance and has had multiple falls. He is at increased risk for severe/life-threatening bleed with his falls while being on Eliquis. The CHADS-VASC score is 3 and HAS-BLED score is 2. The patient is at increased risk of both bleeding and stroke. As such the patient is a reasonable candidate for consideration of left atrial appendage occluder placement. Today we discussed the left atrial appendage closure procedure. The patient was given written educational handout materials and watched an educational video. All risks, benefits and alternative were discussed. The risks discussed included but were not limited to vascular complications, sedation related complications, risk of HI, CVA, device embolization, pericardial tamponade and . The patient verbalized understanding and decided to proceed. Plan for LAAO today ' . Following device implant, strategy will be for dual antiplatelet therapy with aspirin and clopidogrel for 6 months then aspirin for life. The patient will need CT scan/EULALIA 4 months after the procedure, to evaluate the device for position, thrombus and harris-device leak [facility] Work Phone: [phone]) [phone] History and physical note* Kimani Meng MD - 02/09/2024 1:25 PM EDT I was asked by Dr. Cooney to evaluate this patient in consultation for evaluation of left atrial appendage closure. The patient is a 78 year old male with PMH of A-fib, orthostatic hypotension, who falls frequently due to poor balance, feels dizzy with changes in posture. Fortunately, none of these falls resulted in severe bodily injuries or ER visits. His primary maintenance person is concerned about Eliquis given his frequent falling. Patient says he has history of anemia and required blood transfusion 3 years ago. The patient has LVEF 25% Given the patient's significant history of poor balance and falls , the patient is referred for consideration of left atrial appendage closure for stroke risk reduction. ROS: Constitutional: no fatigue Eyes: no acute eye problems, no blurred vision, no diplopia, no eye pain ENT: no earache, no sore throat Cardiovascular: no dyspnea on exertion, no chest pain Respiratory: no chronic cough, not coughing up sputum, no wheezing that is consistent with asthma Gastrointestinal: no acute bowel complaints Musculoskeletal: no acute arthralgias, no acute myalgias, no acute joint swelling Skin: no skin rashes, no change in skin color and pigmentation, no skin lesions and no skin lumps. Neurological: no headaches, does report dizziness, no tingling, no fainting and no limb weakness. All other systems have been reviewed and are negative for complaint. Physical Exam: Visit Vitals Smoking Status Never Constitutional: alert and in no acute distress. Eyes: no erythema, swelling or discharge from the eye . . Neck: neck is supple, symmetric, trachea midline, no masses and no thyromegaly . Pulmonary: no increased work of breathing or signs of respiratory distress , lungs clear to auscultation. , normal percussion of chest and chest palpation normal . Cardiovascular: RRR, no murmur, no leg edema, non-displaced PMI, no S3 or S4 Abdomen: abdomen non-tender, no masses and no hepatomegaly . Neurologic: non-focal neurologic examination. Psychiatric judgment and insight is normal , oriented to person, place and time , normal mood and affect . Labs: Results for orders placed or performed in visit on 09/27/23 Holter Or Event Public Policy Coordinator Result Value Ref Range BSA 2.04 m2 Medications: Current Outpatient Medications Medication Instructions citalopram (CeleXA) 10 mg tablet 1 tablet, oral, Daily Eliquis 5 mg tablet 1 tablet, oral, 2 times daily ergocalciferol (VITAMIN D-2) 50,000 Units, oral, Once Weekly, EVERY MONDAY ferrous sulfate 325 (65 Fe) MG tablet 65 mg of iron, oral, 2 times daily, MONDAY, MONDAY, MONDAY finasteride (Proscar) 5 mg tablet 1 tablet, oral, Daily levothyroxine (Synthroid, Levoxyl) 75 mcg tablet 1 tablet, oral, Daily multivitamin tablet 1 tablet, oral, Daily pantoprazole (ProtoNix) 40 mg EC tablet 1 tablet, oral, Daily simvastatin (Zocor) 20 mg tablet 1 tablet, oral, Daily tamsulosin (Flomax) 0.4 mg 24 hr capsule 1 capsule, oral, Daily valsartan (DIOVAN) 40 mg, oral, Daily Assessment: This is a 78 year old male with PMH of Afib on Eliquis, NICM, CKD who has orthostatic hypotension/poor balance and has had multiple falls. He is at increased risk for severe/life-threatening bleed with his falls while being on Eliquis. The CHADS-VASC score is 3 and HAS-BLED score is 2. The patient is at increased risk of both bleeding and stroke. As such the patient is a reasonable candidate for consideration of left atrial appendage occluder placement. Today we discussed the left atrial appendage closure procedure. The patient was given written educational handout materials and watched an educational video. All risks, benefits and alternative were discussed. The risks discussed included but were not limited to vascular complications, sedation related complications, risk of HI, CVA, device embolization, pericardial tamponade and . The patient verbalized understanding and decided to proceed. Plan for LAAO today ' . Following device implant, strategy will be for dual antiplatelet therapy with aspirin and clopidogrel for 6 months then aspirin for life. The patient will need CT scan/EULALIA 4 months after the procedure, to evaluate the device for position, thrombus and harris-device leak [facility] Phone: 1([phone]) 910-402306-21-2024 Hospital Discharge instructions* Discharge Instructions* SAMY Vasquez - 02/09/2024 7:00 AM EDT Anticoagulation Plan: Plavix and 81mg Aspirin for 6 months, then aspirin for life Do not drive or lift anything heavier than 10lbs for 1 week, or until groin is healed You will have CT imaging completed in 4 months to assess the effectiveness of the Watchman Device. You will receive a call (within 45 days) in regards to timing of [address] Please follow up with your primary maintenance person or PCP in 1-2 weeks No elective dental procedures or cleanings for 3 months post procedure You will need dental prophylaxis prior to dental work/cleanings for 6 months Please call our nurse line for any questions or concerns: [facility] Work Phone: 1([phone]) 355-167505-08-2024 History of Present illness Narrative* Adebayo Santiago MD - 12/27/2023 3:00 PM EDT Cardio: Dr. Cooney Straightedge Worker was used for translation, as patient and are deaf and mute. I was asked by Dr. Cooney to evaluate this patient in consultation for evaluation of left atrial appendage closure. The patient is a 78 year old male with PMH of A-fib, orthostatic hypotension, who falls frequently due to poor balance, feels dizzy with changes in posture. Fortunately, none of these falls resulted in severe bodily injuries or ER visits. His primary maintenance person is concerned about Eliquis given his frequent falling. Patient says he has history of anemia and required blood transfusion 3 years ago. The patient has LVEF 25% Given the patient's significant history of poor balance and falls , the patient is referred for consideration of left atrial appendage closure for stroke risk reduction. ROS: Constitutional: no fatigue Eyes: no acute eye problems, no blurred vision, no diplopia, no eye pain ENT: no earache, no sore throat Cardiovascular: no dyspnea on exertion, no chest pain Respiratory: no chronic cough, not coughing up sputum, no wheezing that is consistent with asthma Gastrointestinal: no acute bowel complaints Musculoskeletal: no acute arthralgias, no acute myalgias, no acute joint swelling Skin: no skin rashes, no change in skin color and pigmentation, no skin lesions and no skin lumps. Neurological: no headaches, does report dizziness, no tingling, no fainting and no limb weakness. All other systems have been reviewed and are negative for complaint. Physical Exam: Visit Vitals Smoking Status Never Constitutional: alert and in no acute distress. Eyes: no erythema, swelling or discharge from the eye . . Neck: neck is supple, symmetric, trachea midline, no masses and no thyromegaly . Pulmonary: no increased work of breathing or signs of respiratory distress , lungs clear to auscultation. , normal percussion of chest and chest palpation normal . Cardiovascular: RRR, no murmur, no leg edema, non-displaced PMI, no S3 or S4 Abdomen: abdomen non-tender, no masses and no hepatomegaly . Neurologic: non-focal neurologic examination. Psychiatric judgment and insight is normal , oriented to person, place and time , normal mood and affect . Labs: Results for orders placed or performed in visit on 09/27/23 Holter Or Event Public Policy Coordinator Result Value Ref Range BSA 2.04 m2 Medications: Current Outpatient Medications Medication Instructions citalopram (CeleXA) 10 mg tablet 1 tablet, oral, Daily Eliquis 5 mg tablet 1 tablet, oral, 2 times daily ergocalciferol (VITAMIN D-2) 50,000 Units, oral, Once Weekly, EVERY MONDAY ferrous sulfate 325 (65 Fe) MG tablet 65 mg of iron, oral, 2 times daily, MONDAY, MONDAY, MONDAY finasteride (Proscar) 5 mg tablet 1 tablet, oral, Daily levothyroxine (Synthroid, Levoxyl) 75 mcg tablet 1 tablet, oral, Daily multivitamin tablet 1 tablet, oral, Daily pantoprazole (ProtoNix) 40 mg EC tablet 1 tablet, oral, Daily simvastatin (Zocor) 20 mg tablet 1 tablet, oral, Daily tamsulosin (Flomax) 0.4 mg 24 hr capsule 1 capsule, oral, Daily valsartan (DIOVAN) 40 mg, oral, Daily Assessment: This is a 78 year old male with PMH of Afib on Eliquis, NICM, CKD who has orthostatic hypotension/poor balance and has had multiple falls. He is at increased risk for severe/life-threatening bleed with his falls while being on Eliquis. The CHADS-VASC score is 3 and HAS-BLED score is 2. The patient is at increased risk of both bleeding and stroke. As such the patient is a reasonable candidate for consideration of left atrial appendage occluder placement. Today we discussed the left atrial appendage closure procedure. The patient was given written educational handout materials and watched an educational video. All risks, benefits and alternative were discussed. The risks discussed included but were not limited to vascular complications, sedation related complications, risk of HI, CVA, device embolization, pericardial tamponade and . The patient verbalized understanding and decided to proceed. Plan will be for preprocedural cardiac CT. Following device implant, strategy will be for dual antiplatelet therapy with aspirin and clopidogrel for 6 months then aspirin for life. The patient will need CT scan/EULALIA 4 months after the procedure, to evaluate the device for position, thrombus and harris-device leak Thank you, Dr. Cooney, for this consultation and for allowing me to participate in the care of this patient. documented in this [facility] Work Phone: 1(136) 650-497304-15-2024 History of Present illness Narrative* Viki Cooney MD - 12/04/2023 1:00 PM EDT Most recently seen September 2023 by Asya Mendoza, at which time preoperative cardiac risk assessmentwas performed. Patient remained in atrial fibrillation with controlled ventricular rate. He underwent inguinal hernia surgery October 09 without incident. Subjective : No bleeding diathesis Falling frequently due to loss of balance, no major injury, dizzy with changes in posture particularly in the waxer. Orthostatic in office, blood pressures as low as 90 systolic, sitting downblood pressure 112/68 standing blood pressure 98/72. History so Far : History so far : Chest pain (786.50) (R07.9) Patient indicates discomfort across the anterior chest wall, details very difficult to ascertain. Mild CAD (414.00) (I25.10) December 2017 cardiac cath Mid LAD 30% Proximal circumflex 30% RCA nondominant Echo prior to cath LVEF 25% October 2020 perfusion study fixed inferior defect Non-ischemic cardiomyopathy (425.4) (I42.8) 2018 EF 25% February 2019 echo LVEF 45 to 50% October 2020 MPI LVEF 49% He has been maintained on Coreg and lisinopril since December 2017. Presents today off medication with addition of midodrine. I cannot elicit any type of orthopnea or PND, no dyspnea on exertion ambulating from exam room to front of office Persistent atrial fibrillation (427.31) (I48.19) EKG in office normal sinus rhythm on amiodarone 200 mg daily, QTC 450 November 2020 cardioversion Anticoagulated (V58.61) (Z79.01) CHADS VASc 3 full dose Eliquis age 76, weight 192 High risk medication use (V58.69) (Z79.899) Amiodarone start date March 2018 Amio was discontinued because patient had very wobbly wide-based gait, and was falling frequently, I could not exclude Amio side effect. 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 [facility] Myoview July 2022-normal perfusion LVEF 47% with mild global hypokinesis transient ischemic dilatation 1.01 which is normal Objective Failed to redirect to the Timeline version of the [employer] Smart[employer]. Wt Readings from Last 3 Encounters: 12/04/23 88.9 kg (196 lb) 09/27/23 88.5 kg (195 lb) 05/25/23 89.4 kg (197 lb 3.2 oz) Visit Vitals BP 98/72 (BP Location: Right arm, Patient Position: Standing) Pulse 72 Ht 1.702 m (5' 7 ) Wt 88.9 kg (196 lb) BMI 30.70 kg/m Smoking Status Never BSA 2.05 m Physical Exam: Deaf and mute, language interpreter available for communication. Denies chest pressure tightness or heaviness, short of breath at times. Remains on medications for BPH, which may also cause the arterial hypotension. . Meds: Current Outpatient Medications Medication Instructions citalopram (CeleXA) 10 mg tablet 1 tablet, oral, Daily Eliquis 5 mg tablet 1 tablet, oral, 2 times daily ergocalciferol (VITAMIN D-2) 50,000 Units, oral, Once Weekly, EVERY MONDAY ferrous sulfate 325 (65 Fe) MG tablet 65 mg of iron, oral, 2 times daily, MONDAY, MONDAY, MONDAY finasteride (Proscar) 5 mg tablet 1 tablet, oral, Daily levothyroxine (Synthroid, Levoxyl) 75 mcg tablet 1 tablet, oral, Daily multivitamin tablet 1 tablet, oral, Daily pantoprazole (ProtoNix) 40 mg EC tablet 1 tablet, oral, Daily simvastatin (Zocor) 20 mg tablet 1 tablet, oral, Daily tamsulosin (Flomax) 0.4 mg 24 hr capsule 1 capsule, oral, Daily valsartan (DIOVAN) 40 mg, oral, Daily No Known Allergies LABS: GFR October 2023 45 creatinine 1.58, hemoglobin A1c 6.1, liver enzymes normal, triglycerides 142 total cholesterol 186, LDL 116, HDL 42 TG four 0.99 Free T32.61 TSH 3 Patient Active Problem List Diagnosis Date Noted Deaf mutism, congenital 12/08/2023 Falls frequently 12/08/2023 Never smoked tobacco 12/04/2023 BMI 30.0-30.9,adult 12/04/2023 Encounter to discuss test results 05/25/2023 Chest pain 05/24/2023 Mild CAD 05/24/2023 Mixed hyperlipidemia 05/24/2023 Non-ischemic cardiomyopathy (Multi) 05/24/2023 Persistent atrial fibrillation (Multi) 05/24/2023 Sympathotonic orthostatic hypotension 05/24/2023 Abnormal EKG 05/24/2023 Anticoagulated 05/24/2023 BPH (benign prostatic hyperplasia) 05/24/2023 CHF (congestive heart failure), NYHA class II (Multi) 05/24/2023 Diarrhea 05/24/2023 Dizziness 05/24/2023 First degree AV block 05/24/2023 Gait disturbance 05/24/2023 Risk for falls 05/24/2023 Shortness of breath 05/24/2023 Stage 3a chronic kidney disease (Multi) 05/24/2023 Tremor 05/24/2023 Assessment: 1. Deaf mutism, congenital 2. Non-ischemic cardiomyopathy (Multi) Follow Up In Cardiology Follow Up In Cardiology 3. Persistent atrial fibrillation (Multi) Follow Up In Cardiology CBC Basic Metabolic Panel CBC Basic Metabolic Panel 4. Mild CAD CBC Basic Metabolic Panel CBC Basic Metabolic Panel 5. Mixed hyperlipidemia CBC Basic Metabolic Panel CBC Basic Metabolic Panel 6. Sympathotonic orthostatic hypotension 7. Chronic systolic congestive heart failure, NYHA class 2 (Multi) CBC Basic Metabolic Panel CBC Basic Metabolic Panel 8. Never smoked tobacco 9. BMI 30.0-30.9,adult 10. Benign prostatic hyperplasia with urinary frequency 11. Stage 3a chronic kidney disease (Multi) 12. Falls frequently Clinical decision making: For any decision that we make, or any procedure that is planned, patient and are deaf and mute, they need a keyboard instrument tuner at all times for us to communicate Patient has been in atrial fibrillation, not permanent, we had to discontinue amiodarone because ofwobbly gait which may or may not have been related to the amiodarone, but patient says he is betterwith respect He remains on Eliquis, which is becoming concerning for me because of his frequent falling. We had discussed previously Watchman device, and I pursued the discussion again today with the helpof the language interpreter, patient and said they have issues with the right, they cannot have virtualvisits because of their limitations with communication, they have agreed to see Dr. Santiago in [facility]. Varying estimates of left ventricular ejection fraction, mostly hovering in the 40s, has some shortness of breath which may be multifactorial. Not on adequate heart failure medications, because of arterial hypotension and orthostatic hypotension Unable to use ProAmatine because of prostate issues. Prostate medications also evaluating patient's orthostatic hypotension. Hesitant to use Florinef because of systolic congestive heart failure. May have to discontinue Diovan. Fall precautions were reiterated. Patient also has frequent ventricular premature beats. I had suggested EP evaluation, patient and always hesitant to travel because of right limitations. Will address at next visit. No syncope or presyncope. Follow up : 6 months CBC and basic metabolic profile prior to next visit Scribe Attestation By signing my name below, I, Shaina Vines LPN , [place] attest that this documentation has been prepared under the direction and in the presence of Viki Cooney MD. Provider Attestation - Scribe documentation All medical record entries made by the Scribe were at my direction and personally dictated by me. Ihave reviewed the chart and agree that the record accurately reflects my personal performance of the history, physical exam, discussion and plan. [facility] Work Phone: 1(122) 716-576204-15-2024 Instructions* Patient Instructions* Shaina Patton LPN - 12/04/2023 1:00 PM EDT Please bring all medicines, vitamins, and herbal supplements with you when you come to the office. Prescriptions will not be filled unless you are compliant with your follow up appointments or have a follow up appointment scheduled as per instruction of your physician. Refills should be requested at the time of your visit. Fall Prevention Education Given BMI was above normal measurement. Current weight: 88.9 kg (196 lb) Weight change since last visit (-) denotes wt loss 1 lbs Weight loss needed to achieve BMI 25: 36.7 Lbs Weight loss needed to achieve BMI 30: 4.9 Lbs Provided instructions on dietary changes Provided instructions on exercise. [facility] Work Phone: 1(194) 555-703302-19-2024 Hospital Discharge instructions Patient Education 10/09/2023 10:59:00 Post Op Patient Instructions - FT (CUSTOM) 10/09/2023 10:58:41 Laparoscopic Inguinal Hernia Repair, Adult, Care After Laparoscopic Inguinal Hernia Repair, Adult, Care After The following information offers guidance on how to care for yourself after your procedure. Your health care provider may also give you more specific instructions. If you have problems or questions, contact your health care provider. What can I expect after the procedure? After the procedure, it is common to have: Pain. Swelling and bruising around the incision area. Scrotal swelling, in males. Some fluid or blood draining from your incisions. Follow these instructions at home: Medicines Take omni-eel-qvsaerp and prescription medicines only as told by your health care provider. Ask your health care provider if the medicine prescribed to you: ?Requires you to avoid driving or using machinery. ?Can cause constipation. You may need to take these actions to prevent or treat constipation: ?Drink enough fluid to keep your urine pale yellow. ?Take cnvp-cts-prkyxor or prescription medicines. ?Eat foods that are high in fiber, such as beans, whole grains, and fresh fruits and vegetables. ?Limit foods that are high in fat and processed sugars, such as fried or sweet foods. Incision care Follow instructions from your health care provider about how to take care of your incisions. Make sure you: ?Wash your hands with soap and water for at least 20 seconds before and after you change your bandage (dressing). If soap and water are not available, use hand rivet hammer machine operator. ?Change your dressing as told by your health care provider. ?Leave stitches (sutures), skin glue, or adhesive strips in place. These skin closures may need to stay in place for 2 weeks or longer. If adhesive strip edges start to loosen and curl up, you may trim the loose edges. Do not remove adhesive strips completely unless your health care provider tells you to do that. Check your incision area every day for signs of infection. Check for: ?More redness, swelling, or pain. ?More fluid or blood. ?Warmth. ?Pus or a bad smell. Wear loose, soft clothing while your incisions heal. Managing pain and swelling If directed, put ice on the painful or swollen areas. To do this: Put ice in a plastic bag. Place a towel between your skin and the bag. Leave the ice on for 20 minutes, 2 3 times a day. Remove the ice if your skin turns bright red. This is very important. If you cannot feel pain, heat, or cold, you have a greater risk of damage to the area. Activity Do not lift anything that is heavier than 10 lb (4.5 kg), or the limit that you are told, until your health care provider says that it is safe. Ask your health care provider what activities are safe for you. A lot of activity during the first week after surgery can increase pain and swelling. For 1 week after your procedure: ?Avoid activities that take a lot of effort, such as exercise or sports. ?You may walk and climb stairs as needed for daily activity, but avoid long walks or climbing stairs for exercise. General instructions If you were given a sedative during the procedure, it can affect you for several hours. Do not drive or operate machinery until your health care provider says that it is safe. Do not take baths, swim, or use a hot tub until your health care provider approves. Ask your healthcare provider if you may take showers. You may only be allowed to take sponge baths. Do not use any products that contain nicotine or tobacco. These products include cigarettes, chewing tobacco, and vaping devices, such as e-cigarettes. If you need help quitting, ask your health careprovider. Keep all follow-up visits. This is important. Contact a health care provider if: You have any of these signs of infection: ?More redness, swelling, or pain around your incisions or your groin area. ?More fluid or blood coming from an incision. ?Warmth coming from an incision. ?Pus or a bad smell coming from an incision. ?A fever or chills. You have more swelling in your scrotum, if you are male. You have severe pain and medicines do not help. You have abdominal pain or swelling. You cannot urinate or have a bowel movement. You faint or feel dizzy. You have nausea and vomiting. Get help right away if: You have redness, warmth, or pain in your leg. You have chest pain. You have problems breathing. These symptoms may represent a serious problem that is an emergency. Do not wait to see if the symptoms will go away. Get medical help right away. Call your local emergency services (911 in the [place] Do not drive yourself to the hospital. Summary Pain, swelling, and bruising are common after the procedure. Check your incision area every day for signs of infection, such as more redness, swelling, or pain. Put ice on painful or swollen areas for 20 minutes, 2 3 times a day. This information is not intended to replace advice given to you by your health care provider. Make sure you discuss any questions you have with your health care provider. Document Revised: 04/06/2021 Document Reviewed: 04/06/2021 [employer] Patient Education 2022 [employer]. Follow Up Care 08/31/2023 11:29:19 With:Jamel MARTINEZ Address: [facility] [address], [address] [place] [address]- Business (1) When:7 to 10 days [facility]02-08-2024 Evaluation + Plan note* Assessment & Plan Note - SAMY Cosme - 09/28/2023 4:26 PM ESTAssociated Problem(s): Class 1 obesity with body mass index (BMI) of 30.0 to 30.9 in adult Reviewed the merits of healthy lifestyle choices on overall cardiovascular health. [facility] Work Phone: 1([phone]) 123-116502-08-2024 Evaluation + Plan note* Assessment & Plan Note - SAMY Cosme - 09/28/2023 4:26 PM ESTAssociated Problem(s): Anticoagulated CHADS VASc 3 currently on full dose Eliquis age 78, creatinine 1.6, weight 195 Denies bleeding diatheses Has been referred for left atrial appendage occlusive device due to frequent falls, unsteady gait. [facility] Work Phone: [phone]) 742-592902-08-2024 Evaluation + Plan note* Assessment & Plan Note - SAMY Cosme - 09/28/2023 4:26 PM ESTAssociated Problem(s): Sympathotonic orthostatic hypotension Standing blood pressure in the office 102/50 No longer on ProAmatine [facility] Work Phone: [phone] 444-658202-08-2024 Miscellaneous Notes* Assessment & Plan Note - SAMY Cosme - 09/28/2023 4:26 PM ESTAssociated Problem(s): Class 1 obesity with body mass index (BMI) of 30.0 to 30.9 in adult Reviewed the merits of healthy lifestyle choices on overall cardiovascular health. * Assessment & Plan Note - SAMY Cosme - 09/28/2023 4:26 PM EST Associated Problem(s): Anticoagulated CHADS VASc 3 currently on full dose Eliquis age 78, creatinine 1.6, weight 195 Denies bleeding diatheses Has been referred for left atrial appendage occlusive device due to frequent falls, unsteady gait. * Assessment & Plan Note - SAMY Cosme - 09/28/2023 4:26 PM EST Associated Problem(s): Sympathotonic orthostatic hypotension Standing blood pressure in the office 102/50 No longer on ProAmatine * Assessment & Plan Note - SAMY Cosme - 09/28/2023 4:25 PM EST Associated Problem(s): Persistent atrial fibrillation (CMS/HCC) November 2020 cardioversion Had previously been maintained on amiodarone until early 2022 when it was discontinued due to concern for side effects of gait abnormality. EKG in office today recurrent atrial fibrillation with controlled ventricular rate, PVCs currently on no AV kurt blocking agents * Assessment & Plan Note - SAMY Cosme - 09/28/2023 4:25 PM EST Associated Problem(s): Non-ischemic cardiomyopathy (CMS/HCC) 2017 LVEF 25% February 2019 TTE EF 45 to 50% July 2022 MPI EF 47% November 2022 TTE EF 50 to 55% * Assessment & Plan Note - SAMY Cosme - 09/28/2023 4:24 PM EST Associated Problem(s): Mild CAD December 2017 cardiac cath Mid LAD 30% Proximal circumflex 30% RCA nondominant July 2022 MPI no ischemia documented in this [facility] Work Phone: [phone]) [phone] Evaluation + Plan note* Assessment & Plan Note - SAMY Cosme - 09/28/2023 4:25 PM ESTAssociated Problem(s): Persistent atrial fibrillation (CMS/HCC) November 2020 cardioversion Had previously been maintained on amiodarone until early 2022 when it was discontinued due to concern for side effects of gait abnormality. EKG in office today recurrent atrial fibrillation with controlled ventricular rate, PVCs currently on no AV kurt blocking agents [facility] Work Phone: [phone]) 332-305502-08-2024 Evaluation + Plan note* Assessment & Plan Note - SAMY Cosme - 09/28/2023 4:25 PM ESTAssociated Problem(s): Non-ischemic cardiomyopathy (CMS/HCC) 2017 LVEF 25% February 2019 TTE EF 45 to 50% July 2022 MPI EF 47% November 2022 TTE EF 50 to 55% [facility] Work Phone: [phone]) 210-955002-08-2024 Evaluation + Plan note* Assessment & Plan Note - SAMY Cosme - 09/28/2023 4:24 PM ESTAssociated Problem(s): Mild CAD December 2017 cardiac cath Mid LAD 30% Proximal circumflex 30% RCA nondominant July 2022 MPI no ischemia [facility] Work Phone: [phone] 216-823402-07-2024 History of Present illness Narrative* SAMY Cosme - 09/27/2023 12:30 PM EST Chief Complaint Breathe heavy with short distance Reason for Visit Patient presents to the office today for outpatient follow-up for cardiac risk stratification. Last evaluated in clinic by Dr. Cooney May 2023. At that time, he was referred for consult with Dr. Santiago -has not been completed to date. Presents today ambulatory with steady gait. Accompanied by spouse and design and sales consultant. Patient denies any hospitalizations or significant changes to interval medical history since last office follow-up. History of Present Illness Patient is a pleasant 78-year-old. He reports today breathing heavy with short distance, utilizing a cart to go to the grocery store. It is very difficult to tell if these are new symptoms or if theyare consistent with his history. The reports he goes up and down the basement stairs. There isno palpitations. They actually went to the [place] office first and reports when he walked through the parking lot there he had no concerns. Remains comfortable at rest. Denies any palpitations. EKG in office today is recurrent coarse atrial flutter with variable response, CVR with PVCs (November2022 Holter with 11% PVC burden). It is very difficult to tell if he is symptomatic in atrial fibrillation. There is no orthopnea or PND. He is comfortable with conversation. Patient reports that overall has no complaint(s) of chest pain, chest pressure/discomfort, lower extremity edema, orthopnea, and palpitations or has complaint(s) of dyspnea. Review of Systems Cardiovascular: Negative for chest pain, dyspnea on exertion, irregular heartbeat, leg swelling, near-syncope, orthopnea, palpitations, paroxysmal nocturnal dyspnea and syncope. Respiratory: Positive for shortness of breath. Total DASI: 23.45 METs: 5.62 Visit Vitals BP 114/58 (BP Location: Left arm, Patient Position: Sitting) Pulse 69 Ht 1.702 m (5' 7 ) Wt 88.5 kg (195 lb) BMI 30.54 kg/m Smoking Status Never BSA 2.05 m Physical Exam Vitals and nursing note reviewed. Constitutional: Appearance: Normal appearance. Cardiovascular: Rate and Rhythm: Normal rate. Rhythm irregularly irregular. Heart sounds: Normal heart sounds. Pulmonary: Effort: Pulmonary effort is normal. Breath sounds: Normal breath sounds. Musculoskeletal: Cervical back: Full passive range of motion without pain. Right lower leg: No edema. Left lower leg: No edema. Skin: General: Skin is cool. Neurological: Mental Status: He is alert and oriented to person, place, and time. Psychiatric: Attention and Perception: Attention normal. Mood and Affect: Mood normal. Behavior: Behavior is cooperative. No Known Allergies Current Outpatient Medications Medication Instructions citalopram (CeleXA) 10 mg tablet 1 tablet, oral, Daily Eliquis 5 mg tablet 1 tablet, oral, 2 times daily ergocalciferol (VITAMIN D-2) 50,000 Units, oral, Weekly, EVERY MONDAY ferrous sulfate 325 (65 Fe) MG tablet 65 mg of iron, oral, 2 times daily, MONDAY, MONDAY, MONDAY finasteride (Proscar) 5 mg tablet 1 tablet, oral, Daily levothyroxine (Synthroid, Levoxyl) 75 mcg tablet 1 tablet, oral, Daily pantoprazole (ProtoNix) 40 mg EC tablet 1 tablet, oral, Daily simvastatin (Zocor) 20 mg tablet 1 tablet, oral, Daily tamsulosin (Flomax) 0.4 mg 24 hr capsule 1 capsule, oral, Daily valsartan (DIOVAN) 40 mg, oral, Daily Assessment: Mild CAD December 2017 cardiac cath Mid LAD 30% Proximal circumflex 30% RCA nondominant July 2022 MPI no ischemia Non-ischemic cardiomyopathy ([facility]) 2018 LVEF 25% February 2019 TTE EF 45 to 50% July 2022 MPI EF 47% November 2022 TTE EF 50 to 55% Persistent atrial fibrillation (CMS/HCC) November 2020 cardioversion Had previously been maintained on amiodarone until early 2022 when it was discontinued due to concern for side effects of gait abnormality. EKG in office today recurrent atrial fibrillation with controlled ventricular rate, PVCs currently on no AV kurt blocking agents Sympathotonic orthostatic hypotension Standing blood pressure in the office 102/50 No longer on ProAmatine Anticoagulated CHADS VASc 3 currently on full dose Eliquis age 78, creatinine 1.6, weight 195 Denies bleeding diatheses Has been referred for left atrial appendage occlusive device due to frequent falls, unsteady gait. Class 1 obesity with body mass index (BMI) of 30.0 to 30.9 in adult Reviewed the merits of healthy lifestyle choices on overall cardiovascular health. Plan: 24 hour holter to assess rate control To review clinical situation and need for cardiac restratification with Dr. Cooney. Asya Mendoza MSN, INVENTORY AUDITOR-ENGLISH COMPOSITION INSTRUCTOR, PMHNP-[facility] Please excuse any errors in grammar or translation related to this dictation. Voice recognition software was utilized to prepare this document. documented in this [facility] Work Phone: 1(276) 214-675202-07-2024 Instructions* Patient Instructions* SAMY Cosme - 09/27/2023 12:30 PM EST Please bring all medicines, vitamins, and herbal supplements with you when you come to the office. Prescriptions will not be filled unless you are compliant with your follow up appointments or have a follow up appointment scheduled as per instruction of your physician. Refills should be requested at the time of your visit. PLAN: Through informed decision making process incorporating patients unique circumstances, the followingtreatment plan will be initiated: 1. Prescription drug management of cardiovascular medication for efficacy, adherence to treatment, side effect assessment and polypharmacy. Current treatment clinically warranted and to continue without modifications. 2. Return for follow-up; in the interim, contact the office if new symptoms arise. Dr. Conoey as scheduled 3. 24 hour holter (recurrent atrial fib) I will speak to Dr. Ellis then get letter to surgeon documented in this [facility] Work Phone: [phone] 661-858801-29-2024 Note [id number]#1.00[facility] 07-27-2023 NotePatient: YAAD DE LA ROSA Age: 77 years Sex: Male : 1945 Associated Diagnoses: None Author: Jamel MARTINEZ MD Subjective no changes to & [facility]:Result Comment: Electronically Signed By: Jamel MARTINEZ MD\.br\Date and Time Signed: 07/27/23 07:36 [id number] + Plan noteExtracted from:Title:ANES Post-operative Note - GeneralAuthor:Mike Machado Jr., DO GDate:07/21/23 Plan Transfer/Discharge: Transfer/Discharge Discharge when meets criteria ( From PACU to Ambulatory Surgery Unit, and To home ). Extracted from:Title:ALTHEAS Pre-operative Note - EndoAuthor:Mike Machado Jr., DO GDate:07/21/23 Plan [place] [employer] Anesthesiologists (ASA) physical status classification: Class III. Anesthetic Preoperative Plan: Anesthesia General, and -TIVA. Future Appointments Appointment Date:07/25/2023 10:00:00 AM Scheduled Provider: Location:[facility].CAT SCAN Appointment Type:CT Abdomen/Pelvis Combo ([facility]) Future Scheduled Tests Laboratory* Creatinine 07/06/23 Radiology* CT Abdomen/Pelvis w/ Contrast 07/25/23 [facility]12-01-2023 Hospital Discharge instructions Patient Education 07/21/2023 09:25:54 Upper Endoscopy, Adult, Care After Upper Endoscopy, Adult, Care After After the procedure, it is common to have a sore throat. It is also common to have: Mild stomach pain or discomfort. Bloating. Nausea. Follow these instructions at home: The instructions below may help you care for yourself at home. Your health care provider may give you more instructions. If you have questions, ask your health care provider. If you were given a sedative during the procedure, it can affect you for several hours. Do not drive or operate machinery until your health care provider says that it is safe. If you will be going home right after the procedure, plan to have a responsible adult: ?Take you home from the hospital or clinic. You will not be allowed to drive. ?Care for you for the time you are told. Follow instructions from your health care provider about what you may eat and drink. Return to your normal activities as told by your health care provider. Ask your health care provider what activities are safe for you. Take ictt-syl-qeweyga and prescription medicines only as told by your health care provider. Contact a health care provider if you: Have a sore throat that lasts longer than one day. Have trouble swallowing. Have a fever. Get help right away if you: Vomit blood or your vomit looks like coffee grounds. Have bloody, black, or tarry stools. Have a very bad sore throat or you cannot swallow. Have difficulty breathing or very bad pain in your chest or abdomen. These symptoms may be an emergency. Get help right away. Call 911. Do not wait to see if the symptoms will go away. Do not drive yourself to the hospital. Summary After the procedure, it is common to have a sore throat, mild stomach discomfort, bloating, and nausea. If you were given a sedative during the procedure, it can affect you for several hours. Do not drive until your health care provider says that it is safe. Follow instructions from your health care provider about what you may eat and drink. Return to your normal activities as told by your health care provider. This information is not intended to replace advice given to you by your health care provider. Make sure you discuss any questions you have with your health care provider. Document Revised: 11/16/2022 Document Reviewed: 11/16/2022 [employer] Patient Education 2022 [employer]. 07/21/2023 09:25:54 [facility] NSAIDS-Nonsteroidal Anti-Inflammatory Medications (CUSTOM) Nonsteroidal Anti-Inflammatory Medications (NSAIDS) Non-steroidal anti-inflammatory drugs (NSAIDs) are a medication widely used to treat a wide range of conditions. Common acute (short-term) conditions that can be treated with NSAIDs include: headaches painful periods toothache soft tissue injuries such as sprains and strains reduce inflammation (redness and swelling) infections, such as the common cold or the flu (NSAIDs do not treat the underlying infections, but can help to relieve symptoms; especially fever) Common chronic (long-term) conditions that can be treated with NSAIDs include: most types of arthritis, including rheumatoid arthritis and osteoarthritis back pain neck pain Some NSAIDs are available yrom-mlp-mvbjlpw, without the need for a prescription. However, because a medication is available over the counter it does not mean it is safe or suitablefor everyone. Again, it is important to read the patient information leaflet that comes with your medication. NSAID drugs include: Brand: Generic: Bufferin; Miguel Aspirin; ASA Celebrex Celecoxib Zipsor; Cambia Diclofenac Motrin; Advil Ibuprofen Indosin Indometacin Actron; Orudis Ketoprofen Toradol Ketorolac Mobic Meloxicam Ponstel Mefenamic Acid Aleve; Naprosyn Naproxen Side effects: Most people take NSAIDs without having any side effects. Short term use is unlikely to cause significant problems, especially in younger patients. If side effects do occur they usually affect the stomach and can include: Indigestion Nausea Stomach pain Stomach ulcer Bleeding from the stomach and intestines Other side effects: Ringing in the ears itching Poor control of asthma Headache Allergic reactions NSAIDs are also not usually recommended for people who: are or have a history of kidney disease have a history of liver disease have active stomach ulcers (a sore in the lining of the stomach), or are at risk of developing stomach ulcers How to take NSAIDS: NSAIDS should be taken in the pill form or given by injection. If you are taking the pill form, it is best to take with food to avoid an upset stomach. IF a dose is missed: Some of these medications are taken as needed. Do not take more of your NSAID than your doctor has prescribed. Follow the gihq-ach-ctjsuht labels and do not exceed the recommended dosage. If you take an NSAID daily, take the missed dose of your medication as soon as you remember it. If it is too close to the time for your next dose, skip the missed dose and go back to taking this medication at your normal time. Do not take two doses of this medication at the same time or take any extra doses of this medication. If any questions regarding your medications, contact your physician or pharmacist. 07/21/2023 09:25:54 Gastritis, Adult Gastritis, Adult Gastritis is inflammation of the stomach. There are two kinds of gastritis: Acute gastritis. This kind develops suddenly. Chronic gastritis. This kind is much more common. It develops slowly and lasts for a long time. Gastritis happens when the lining of the stomach becomes weak or gets damaged. Without treatment, gastritis can lead to stomach bleeding and ulcers. What are the causes? This condition may be caused by: An infection. Drinking too much alcohol. Certain medicines. These include steroids, antibiotics, and some pvyi-olj-yhfbtqd medicines, such as aspirin or ibuprofen. Having too much acid in the stomach. Having a disease of the stomach. Other causes may include: An allergic reaction. Some cancer treatments (radiation). Smoking cigarettes or the use of products that contain nicotine or tobacco. In some cases, the cause of this condition is not known. What increases the risk? Having a disease of the intestines. Having a disease in which the body's immune system attacks the body (autoimmune disease), such as Crohn's disease. Using aspirin or ibuprofen and other NSAIDs to treat other conditions, such as heart disease or chronic pain. Stress. What are the signs or symptoms? Symptoms of this condition include: Pain or a burning sensation in the upper abdomen. Nausea. Vomiting. An uncomfortable feeling of fullness after eating. Weight loss. Bad breath. Blood in your vomit or stool (feces). In some cases, there are no symptoms. How is this diagnosed? This condition may be diagnosed based on your medical history, a physical exam, and tests. Tests may include: Your medical history and a description of your symptoms. A physical exam. Tests. These can include: ?Blood tests. ?Stool tests. ?A test in which a thin, flexible instrument with a light and a camera is passed down the esophagusand into the stomach (upper endoscopy). ?A test in which a tissue sample is removed to look at it under a microscope (biopsy). How is this treated? This condition may be treated with medicines. The medicines that are used vary depending on the cause of the gastritis. If the condition is caused by a bacterial infection, you may be given antibiotic medicines. If the condition is caused by too much acid in the stomach, you may be given medicines called H2 blockers, proton pump inhibitors, or antacids. Treatment may also involve stopping the use of certain medicines such as aspirin or ibuprofen and other NSAIDs. Follow these instructions at home: Medicines Take cvaa-jyz-wrpxpbu and prescription medicines only as told by your health care provider. If you were prescribed an antibiotic medicine, take it as told by your health care provider. Do notstop taking the antibiotic even if you start to feel better. Alcohol use Do not drink alcohol if: ?Your health care provider tells you not to drink. ?You are , may be , or are planning to become . If you drink alcohol: ?Limit your use to: ?0 1 drink a day for women. ?0 2 drinks a day for men. ?Know how much alcohol is in your drink. In the [place] one drink equals one 12 oz bottle of beer (355 mL), one 5 oz glass of wine (148 mL), or one 1 oz glass of hard liquor (44 mL). General instructions Eat small, frequent meals instead of large meals. Avoid foods and drinks that make your symptoms worse. Talk with your health care provider about ways to manage stress, such as getting regular exercise or practicing deep breathing, meditation, or yoga. Do not use any products that contain nicotine or tobacco. These products include cigarettes, chewing tobacco, and vaping devices, such as e-cigarettes. If you need help quitting, ask your health careprovider. Drink enough fluid to keep your urine pale yellow. Keep all follow-up visits. This is important. Contact a health care provider if: Your symptoms get worse. Your abdominal pain gets worse. Your symptoms return after treatment. You have a fever. Get help right away if: You vomit blood or a substance that looks like coffee grounds. You have black or dark red stools. You are unable to keep fluids down. These symptoms may represent a serious problem that is an emergency. Do not wait to see if the symptoms will go away. Get medical help right away. Call your local emergency services (911 in the [place] Do not drive yourself to the hospital. Summary Gastritis is inflammation of the lining of the stomach that can occur suddenly (acute) or develop slowly over time (chronic). This condition is diagnosed with a medical history, a physical exam, or tests. This condition may be treated with medicines to treat infection or medicines to reduce the amount of acid in your stomach. Follow your health care provider's instructions about taking medicines, making changes to your diet, and knowing when to call for help. This information is not intended to replace advice given to you by your health care provider. Make sure you discuss any questions you have with your health care provider. Document Revised: 12/11/2021 Document Reviewed: 12/11/2021 [employer] Patient Education 2022 [employer]. 07/21/2023 09:25:54 Hiatal Hernia Hiatal Hernia A hiatal hernia occurs when part of the stomach slides above the muscle that separates the abdomen from the chest (diaphragm). A person can be born with a hiatal hernia (congenital), or it may develop over time. In almost all cases of hiatal hernia, only the top part of the stomach pushes through the diaphragm. Many people have a hiatal hernia with no symptoms. The larger the hernia, the more likely it is that you will have symptoms. In some cases, a hiatal hernia allows stomach acid to flow back into the tube that carries food from your mouth to your stomach (esophagus). This may cause heartburn symptoms. The development of heartburn symptoms may mean that you have a condition called gastroesophageal reflux disease (GERD). What are the causes? This condition is caused by a weakness in the opening (hiatus) where the esophagus passes through the diaphragm to attach to the upper part of the stomach. A person may be born with a weakness in thehiatus, or a weakness can develop over time. What increases the risk? This condition is more likely to develop in: Older people. Age is a major risk factor for a hiatal hernia, especially if you are over the age of50. women. People who are overweight. People who have frequent constipation. What are the signs or symptoms? Symptoms of this condition usually develop in the form of GERD symptoms. Symptoms include: Heartburn. Upset stomach (indigestion). Trouble swallowing. Coughing or wheezing. Wheezing is making high-pitched whistling sounds when you breathe. Sore throat. Chest pain. Nausea and vomiting. How is this diagnosed? This condition may be diagnosed during testing for GERD. Tests that may be done include: X-rays of your stomach or chest. An upper gastrointestinal (GI) series. This is an X-ray exam of your GI tract that is taken after you swallow a chalky liquid that shows up clearly on the X-ray. Endoscopy. This is a procedure to look into your stomach using a thin, flexible tube that has a tiny camera and light on the end of it. How is this treated? This condition may be treated by: Dietary and lifestyle changes to help reduce GERD symptoms. Medicines. These may include: ?Gxva-gkj-nwwvnjn antacids. ?Medicines that make your stomach empty more quickly. ?Medicines that block the production of stomach acid (H2 blockers). ?Stronger medicines to reduce stomach acid (proton pump inhibitors). Surgery to repair the hernia, if other treatments are not helping. If you have no symptoms, you may not need treatment. Follow these instructions at home: Lifestyle and activity Do not use any products that contain nicotine or tobacco. These products include cigarettes, chewing tobacco, and vaping devices, such as e-cigarettes. If you need help quitting, ask your health careprovider. Try to achieve and maintain a healthy body weight. Avoid putting pressure on your abdomen. Anything that puts pressure on your abdomen increases the amount of acid that may be pushed up into your esophagus. ?Avoid bending over, especially after eating. ?Raise the head of your bed by putting blocks under the legs. This keeps your head and esophagus higher than your stomach. ?Do not wear tight clothing around your chest or stomach. ?Try not to strain when having a bowel movement, when urinating, or when lifting heavy objects. Eating and drinking Avoid foods that can worsen GERD symptoms. These may include: ?Fatty foods, like fried foods. ?[place] fruits, like oranges or lemon. ?Other foods and drinks that contain acid, like orange juice or tomatoes. ?Spicy food. ?Chocolate. Eat frequent small meals instead of three large meals a day. This helps prevent your stomach from getting too full. ?Eat slowly. ?Do not lie down right after eating. ?Do not eat 1 2 hours before bed. Do not drink beverages with caffeine. These include cola, coffee, cocoa, and tea. Do not drink alcohol. General instructions Take nkfx-ypm-eqpller and prescription medicines only as told by your health care provider. Keep all follow-up visits. Your health care provider will want to check that any new prescribed medicines are helping your symptoms. Contact a health care provider if: Your symptoms are not controlled with medicines or lifestyle changes. You are having trouble swallowing. You have coughing or wheezing that will not go away. Your pain is getting worse. Your pain spreads to your arms, neck, jaw, teeth, or back. You feel nauseous or you vomit. Get help right away if: You have shortness of breath. You vomit blood. You have bright red blood in your stools. You have black, tarry stools. These symptoms may be an emergency. Get help right away. Call 911. Do not wait to see if the symptoms will go away. Do not drive yourself to the hospital. Summary A hiatal hernia occurs when part of the stomach slides above the muscle that separates the abdomen from the chest. A person may be born with a weakness in the hiatus, or a weakness can develop over time. Symptoms of a hiatal hernia may include heartburn, trouble swallowing, or sore throat. Management of a hiatal hernia includes eating frequent small meals instead of three large meals a day. Get help right away if you vomit blood, have bright red blood in your stools, or have black, tarry stools. This information is not intended to replace advice given to you by your health care provider. Make sure you discuss any questions you have with your health care provider. Document Revised: 10/04/2022 Document Reviewed: 10/04/2022 [employer] Patient Education 2022 [employer]. 07/21/2023 09:25:54 Colonoscopy, Care After Surgery Salam (CUSTOM) Colonoscopy Care After Surgery Please read the instructions outlined below and refer to this sheet in the next few weeks. These discharge instructions provide you with general information on caring for [facility] Your doctor may also give you specific instructions. While your treatment has been planned according to the most current medical practices available, unavoidable complications occasionally occur. If you have any problems or questions after discharge, please call your doctor. ACTIVITY You may resume your regular activity, but move at a slower pace for the next 24 hours. Take frequent rest periods for the next 24 hours. Walking will help get rid of the air and reduce the bloated feeling in your abdomen (belly). No driving for 24 hours (because of the anesthesia (medicine) used during the test). You may shower. Do not sign any important legal documents or operate any machinery for 24 hours (because of the anesthesia used during the test). NUTRITION Drink plenty of fluids. You may resume your normal diet as instructed by your doctor. Begin with a light meal and progress to your normal diet. Heavy or fried foods are harder to digestand may make you feel nauseated (sick to your stomach). Avoid alcoholic beverages for 24 hours or as instructed. MEDICATIONS You may resume your normal medications unless your doctor tells you otherwise. WHAT YOU CAN EXPECT TODAY Some feelings of bloating in the abdomen. Passage of more gas than usual. Spotting of blood in your stool or on the toilet paper. FOLLOW-UP Your doctor will discuss the results of your test with you. SEEK IMMEDIATE MEDICAL ATTENTION IF: There is more than a spotting of blood in your stool. There is abdominal distention (your abdomen is swollen). There is vomiting. You have a temperature over 101.5 F. There is abdominal pain or discomfort that is severe or gets worse throughout the day. 07/21/2023 09:25:54 Diverticulosis MAGR (CUSTOM) Diverticulosis Many people have small pouches in their colon called diverticulum. The diverticulum bulge outward through weak spots in the colon. You could have one or more of these pouches in the colon. The condition of having these pouches in the colon is called diverticulosis or diverticular disease. Diverticulosis is usually diagnosed by tests to evaluate something else. For example, you may have had a colonoscopy to screen for colon cancer when the diverticulosis was found. Most people with diverticulosis do not have any discomfort or problems. If symptoms develop, they may include mild cramps, bloating, and constipation. A complication of this condition is called diverticulitis. This is when the diverticulum become inflamed and infected. How to treat diverticulosis: Increasing the amount of fiber in the diet may reduce symptoms of diverticulosis and prevent complications such as diverticulitis (infected diverticuli). Fiber keeps stool soft and lowers pressure inside the colon so that bowel contents can move througheasily. You should eat 20 to 35 grams of fiber each day. The table below shows the amount of fiber in some foods that you can easily add to your diet. Adding fiber slowly may decrease the bloating and fullness sometimes felt with an immediate high fiber diet. The doctor may also recommend taking a fiber product such as Citrucel or Metamucil once a day. In the past people with diverticulosis were to avoid nuts, corn, and seeds. This has not been foundto be true. If you find that certain foods create cramping or bloating, avoid that food. Foods high in fiber include: Fresh fruits, fresh vegetables, legumes (beans), whole wheat bread, bran muffins or cereal, and nuts. See the table below for examples of high fiber foods. Remember, your goal is 20- 35 grams per day. Amount of fiber in different foods Food Serving Grams of fiber Fruits Apple (with skin) 1 medium apple 4.4 Banana 1 medium banana 3.1 Oranges 1 orange 3.1 Prunes 1 cup, pitted 12.4 Juices Apple, unsweetened, w/added ascorbic acid 1 cup 0.5 Grapefruit, white, canned, sweetened 1 cup 0.2 Grape, unsweetened, w/added ascorbic acid 1 cup 0.5 [place] 1 cup 0.7 Vegetables Cooked Green beans 1 cup 4.0 Carrots 1/2 cup sliced 2.3 Peas 1 cup 8.8 Potato (baked, with skin) 1 medium potato 3.8 Raw [place] (with peel) 1 cucumber 1.5 Lettuce 1 cup shredded 0.5 Tomato 1 medium tomato 1.5 Spinach 1 cup 0.7 Legumes Baked beans, canned, no salt added 1 cup 13.9 Kidney beans, canned 1 cup 13.6 [place] beans, canned 1 cup 11.6 Lentils, boiled 1 cup 15.6 Breads, pastas, flours Bran muffins 1 medium muffin 5.2 Oatmeal, cooked 1 cup 4.0 White bread 1 slice 0.6 Whole-wheat bread 1 slice 1.9 Pasta and rice, cooked Macaroni 1 cup 2.5 Rice, brown 1 cup 3.5 Rice, white 1 cup 0.6 Spaghetti (regular) 1 cup 2.5 Nuts Almonds 1/2 cup 8.7 Peanuts 1/2 cup 7.9 Chart from [facility] 2013. SEEK IMMEDIATE MEDICAL CARE IF: You develop abdominal (belly) pain. An oral temperature above _ 101 F__develops. Repeated vomiting occurs. Blood is being passed in stools (bright red or black tarry stools). You develop any bowel problems or changes which you have not had before. Extra Information: To learn how much fiber and other nutrients are in different foods, visit the [place] Department of Agriculture (USDA) National Nutrient Database at: http://www.nal.usda.gov/fnic/foodcomp/search/ Created using data from the USDA National Nutrient Database for Standard Reference. Available at http://www.Gu[employer] Your Songs.usda.gov/fnic/foodcomp/search/. Information adapted from: [employer] Patient Information 2009 [employer]. [employer] 2012 http://www.Roozt.com/contents/ezdfporeatvo-kyaepbl-efytee-the-basics Follow Up Care 07/05/2023 16:08:08 With:Jamel MARTINEZ Address: [address] [place] [address] Business (1) When:7 to 10 days [facility]11-16-2023 Evaluation + Plan note Future Scheduled Tests Laboratory* Creatinine 07/06/23 [facility]11-15-2023 NoteChief Complaint consultation for colonoscopy and possible hernia HPI Staff 77 year old male presents on consultation from Dr. Tyson for surveillance colonoscopy and possible right inguinal hernia. Colonoscopy completed 12/2015 with tubulovillous cecal mass. Right hemicolectomycompleted 01/19/2016. Patient taking Eliquis for a.fib. Reports frequent chest and epigastric pain. Taking Protonix 40mg daily. Denies nausea but experiences frequent vomiting. Feels solid foods get stuck in the chest area when swallowing. Able to swallow liquids without difficulty. Reports stools are dark; taking Ferrous Sulfate daily. Denies stools being thick or tarry. Reports stools are frequently loose. Denies rectal pain or bleeding. Notes bulge in left inguinal area for unknown period of time. Denies change in size since first noted. Reports left scrotal swelling. Denies scrotal pain. 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 Review of Systems PHQ Score Initial Depression Screen Score: 0 SCORE ROS - Provider Constitutional: no fever, no sweats, no weight loss. Eyes: no glasses, no blurred vision, no visual loss. ENMT: no dentures, no hoarseness, yes swallowing difficulties, no hearing loss, no ear infection(s), no nose bleeds. Cardiovascular: normal blood pressure, no chest pain, regular heartbeat, no heart murmur. Respiratory: no shortness of breath, no cough, no asthma, no wheezing. Gastrointestinal: no nausea, no vomiting, no diarrhea, no constipation, no blood in stool, no change in bowel habits, yes abdominal pain, no hepatitis. Genitourinary: no kidney stones, no urine infection, no dysuria. Musculoskeletal: no pain, no weakness. Skin: no changing moles, no rash, no skin lumps. Neurologic: no seizures, no epilepsy, no headache. Psychiatric: no emotional or psychiatric problem. Heme/Lymph: no bleeding problems, no anemia, no blood clots, no transfusions. Allergy/Immunologic: no swollen lymph nodes/glands, no IV drug abuse. Other: Additional ROS info: Except as noted in the above Review of Systems and in the History of Present Illness, all other systems have been reviewed and are negative or noncontributory. Physical Exam Vitals & Measurements HR: 76(Peripheral) RR: 16 BP: 120/78 HT: 66 in HT: 168.9 cm WT: 85 kg WT: 187 lb BMI: 29.8 HEENT: normal conjunctiva, sclera clear, no scleral icterus, EOM intact, PERRLA, oral mucosa moist without lesions. Neck: trachea midline, no mass, symmetric, no thyromegaly or nodules, no adenopathy Respiratory: lungs CTA, respirations non labored. Cardiovascular: regular rate and rhythm, no murmur, no pedal edema or varicosities. Gastrointestinal: obese, soft, non distended, no tenderness, no masses, well- healed midline incision;small reducible umbilical hernia, moderate left inguinal hernia extending into scrotum, nonreducible; no tender, no skin changes; diastasis recti yes, no hepatosplenomegaly; normal bs Lymphatic: no cervical adenopathy, no supraclavicular adenopathy, no inguinal adenopathy. Musculoskeletal: normal gait, digits and nails without infection, nodes, cyanosis, clubbing. Skin: no rashes, no lesions, no ulcers, no subcutaneous nodules, induration. Psychiatric/Neuro: oriented to time, place, person, judgement normal, affect appropriate for age, insight intact, no focal deficits. Tests: review of old records completed , Discussed surgical options, risks, and possible complications with patient. Assessment/Plan 1. Epigastric pain (R10.13: Epigastric pain) plan EGD and colonoscopy for further evaluation; informed consent obtained; plan abd/pelvic ct scanfor further evaluation and evaluation of hernia; will call patient with results. 2. Abdominal pain, generalized (R10.84: Generalized abdominal pain) see # 1 3. Chronic GERD (K21.9: Gastro-esophageal reflux disease without esophagitis) see # 1 4. Other dysphagia (R13.19: Other dysphagia) see # 1 5. Personal history of colonic polyps (Z86.010: Personal history of colonic polyps) see # 1 6. Incarcerated left inguinal hernia (K40.30: Unilateral inguinal hernia, with obstruction, withoutgangrene, not (more content not included)...[facility] HospitalComment on above:Result Comment: Electronically Signed By: JUAN CHATMAN, Jamel Mccann\Date and Time Signed: 07/05/23 20:51 [id number] History of Present illness Narrative* Viki Cooney MD - 05/25/2023 11:30 AM EDT Subjective Ayad De La Rosa is a 77 y.o. male who is accompanied by his to the office, this is a 3-month follow-up. Extensive prior records were reviewed. Since his last visit patient fell again. Appears to be mechanical fall. Uses cane for assistance. No major injury at this time. We have the language interpreter helping us discuss symptoms. Continues to have some shortness of breath, not worse compared to prior visits no evidence of volume overload denies palpitations presyncope or syncope. Denies bleeding diathesis. History so far : Chest pain (786.50) (R07.9) Patient indicates discomfort across the anterior chest wall, details very difficult to ascertain. Mild CAD (414.00) (I25.10) December 2017 cardiac cath Mid LAD 30% Proximal circumflex 30% RCA nondominant Echo prior to cath LVEF 25% October 2020 perfusion study fixed inferior defect Non-ischemic cardiomyopathy (425.4) (I42.8) 2018 EF 25% February 2019 echo LVEF 45 to 50% October 2020 MPI LVEF 49% He has been maintained on Coreg and lisinopril since December 2017. Presents today off medication with addition of midodrine. I cannot elicit any type of orthopnea or PND, no dyspnea on exertion ambulating from exam room to front of office Persistent atrial fibrillation (427.31) (I48.19) EKG in office normal sinus rhythm on amiodarone 200 mg daily, QTC 450 November 2020 cardioversion Anticoagulated (V58.61) (Z79.01) CHADS VASc 3 full dose Eliquis age 76, weight 192 High risk medication use (V58.69) (Z79.899) Amiodarone start date March 2018 Surveillance testing November 2021 Mixed hyperlipidemia (272.2) (E78.2) Moderate intensity statin Sympathotonic orthostatic hypotension (458.0) (I95.1) Quiescent on midodrine Class 1 obesity with body mass index (BMI) of 30.0 to 30.9 in adult (278.00,V85.30) (E66.9,Z68.30) Reviewed the merits of healthy lifestyle choices on overall cardiovascular health. Visit Vitals BP 138/60 (BP Location: Left arm, Patient Position: Sitting) Pulse 56 Ht 1.702 m (5' 7 ) Wt 89.4 kg (197 lb 3.2 oz) BMI 30.89 kg/m Smoking Status Never BSA 2.06 m On examination patient is awake alert oriented x3. His lungs are clear heart sounds are irregularlyirregular without murmur rub or gallop abdomen is soft extremities show no edema unsteady gait, uses cane for assistance. Deaf and mute, language interpreter very helpful to assess patient. Assessment: 1. Nonischemic cardiomyopathy LVEF has improved from 25% to about 40% based on perfusion study of July 2022 2. Abnormal EKG with marked prolongation of NH interval to 302, sinus bradycardia at 59, left axis deviation and pattern of anterior septal myocardial infarction however unchanged from EKG of May2022 3. No clinical pulmonary toxicity of amiodarone, liver enzymes are normal, TSH was normal in July 2022. Chest x-ray in July showed bibasilar atelectasis. Patient does not report any shortnessof breath 4. Between October and May 2022 patient was placed on ProAmatine. This is not a good medication being an alpha agonist, particularly in a patient with BPH who also takes medications for BPH. The BPH medication can also cause orthostatic hypotension. Patient has cardiomyopathy and for that he would benefit from being on an angiotensin receptor xavier or Entresto, would not start carvedilol at this time given marked prolongation of NH interval. However we may first have to down titrate the ProAmatine before starting anything else. 5. I am concerned that patient has neurological side effects from amiodarone such as tremor and drunken gait. 6. Both patient and are deaf, and they also have difficulty with their speech, which makes communication somewhat difficult but can be accomplished with extra effort. 7. Exertional shortness of breath-differential diagnosis includes chronotropic blunting versus amiodarone related 8. 48-hour Holter monitor November 2022-prolonged first-degree AV block, ventricular premature beats that comprised 11.5% of the total QRS complexes, longest R to R interval of 2 seconds occurred at 8:21 AM, patient did not report any symptoms atrial fibrillation was not identified. 9. Echocardiogram November 2022-left atrial diameter 5.9 cm trace mitral regurgitation trace tricuspidregurgitation no pericardial or pleural effusion normal IVC size normal RV size and systolic function aortic valve normal left atrial volume index was not reported. TAPSE 2.4 cm. 10. Orthostatic hypotension 11. At least 3 falls on average every year 12. BNP level 346 reference 5-100-November 2022 13. CKD stage IIIa, GFR December, this is slightly improved compared to July 2022 and unchanged compared to November 2022 Recommendations : This is a patient accompanied by , they are both deaf and mute, and we are using the language interpreter for good communication. Patient is a difficult historian. Has history of atrial fibrillation was on amiodarone, this medication was discontinued because I felt that some of the unsteadiness that he was experiencing was related to amiodarone. I think it has made a difference although difficult to say Patient was seen with the help of the language interpreter. Results of recent testing reviewed. Continuing to have falls. They are quite frequent. Patient remains at high risk of injury from falls. BPH-some of the BPH medications are also contributing to his orthostatic hypotension patient shoulddiscuss with urology Not orthostatic in office today Remains on anticoagulation with Eliquis Unable to maximize guideline directed therapy for systolic heart failure because of borderline blood pressure Patient needs to be evaluated by Dr. Santiago for Watchman device. We had discussed it at last office visit but patient and were very hesitant because they are afraid to drive to [place], and said they cannot get somebody to help him drive to the appointment. After much discussion they have agreedto have one of the family members drive them to the appointment. The language interpreter will need to be present as well. They understand that the procedure itself will be done in [facility] in [place]. There are no diagnoses linked to this encounter. [facility] Work Phone: [phone]) 739-209010-05-2023 Instructions* Patient Instructions* Johana Ruiz LPN - 05/25/2023 11:30 AM EDT Please bring all medicines, vitamins, and herbal supplements with you when you come to the office. Prescriptions will not be filled unless you are compliant with your follow up appointments or have a follow up appointment scheduled as per instruction of your physician. Refills should be requested at the time of your visit. Follow up [address] Santiago. documented in this [facility] Work Phone: [phone]) 730-317905-14-2023 History of Present illness Narrative* 77-year-old with congestive heart failure was most recently seen about 6 weeks ago. At that time westarted Diovan and down titrated the ProAmatine. We are trying to optimize his congestive heart failure medications. Does not report any falls or orthostatic symptoms, blood pressure sitting 114/58 standing blood pressure 104/58. He averages about 3 falls a year. Most of them occur after he has been sleeping and he gets up before he makes sudden changes in posture. Patient is accompanied by his , and we have the staff interpreter and mute patients. Patient says he is a little short of breath with walking. Then he says the shortness of breath has been the same in the last 6 months. At times he tells me that the unsteady drunken gait which I felt was related to the amiodarone is actually better with discontinuation of this medication at other times he says he is still unsteady. Very difficult historian. * Magnesium is causing diarrhea. * Laboratory data from 01/05/2023 was reviewed, sodium 138 potassium 4.9 BUN 24 creatinine 1.66 in November 2022 BNP level was elevated at 346. * Towards the end of the visit patient started complaining of persistent constipation, which I believe is related to the ProAmatine. Patient is also on BPH medications however he is not complaining of urinary retention. * No orthopnea. No leg edema. Fell this a.m. and hit face. No major outwardly injury. No complaints of headache blurred vision or change in consciousness or mentation * Assessment: * 1. Nonischemic cardiomyopathy LVEF has improved from 25% to about 40% based on perfusion study of July 2022 * 2. Abnormal EKG with marked prolongation of NH interval to 302, sinus bradycardia at 59, left axis deviation and pattern of anterior septal myocardial infarction however unchanged from EKG of May2022 * 3. No clinical pulmonary toxicity of amiodarone, liver enzymes are normal, TSH was normal in July 2022. Chest x-ray in July showed bibasilar atelectasis. Patient does not report any shortnessof breath * 4. Between October and May 2022 patient was placed on ProAmatine. This is not a good medication being an alpha agonist, particularly in a patient with BPH who also takes medications for BPH. The BPH medication can also cause orthostatic hypotension. Patient has cardiomyopathy and for that he would benefit from being on an angiotensin receptor xavier or Entresto, would not start carvedilol at this time given marked prolongation of NH interval. However we may first have to down titrate the ProAmatine before starting anything else. * 5. I am concerned that patient has neurological side effects from amiodarone such as tremor and drunken gait. * 6. Both patient and are deaf, and they also have difficulty with their speech, which makes communication somewhat difficult but can be accomplished with extra effort. * 7. Exertional shortness of breath-differential diagnosis includes chronotropic blunting versus amiodarone related * 8. 48-hour Holter monitor November 2022-prolonged first-degree AV block, ventricular premature beats that comprised 11.5% of the total QRS complexes, longest R to R interval of 2 seconds occurred at 8:21 AM, patient did not report any symptoms atrial fibrillation was not identified. * 9. Echocardiogram November 2022-left atrial diameter 5.9 cm trace mitral regurgitation trace tricuspidregurgitation no pericardial or pleural effusion normal IVC size normal RV size and systolic function aortic valve normal left atrial volume index was not reported. TAPSE 2.4 cm. * 10. Orthostatic hypotension * 11. At least 3 falls on average every year * 12. BNP level 346 reference 5-100-November 2022 * 13. CKD stage IIIa, GFR December, this is slightly improved compared to July 2022 and unchanged compared to November 2022 * Assessment : * This is a patient accompanied by , they are both deaf and mute, and we are using the language interpreter for good communication. Patient is a difficult historian. Has history of atrial fibrillation was on amiodarone, this medication was discontinued because I felt that some of the unsteadiness that he was experiencing was related to amiodarone. I think it has made a difference although difficult to say * This patient is having frequent falls in fact he fell this morning and hit his face, suggested ER visit for further evaluation such as a CT of the head because he is on anticoagulation, he and his are adamant that they do not want to proceed. If they develop symptoms they will come back * I suspect that his diarrhea is related to magnesium, we are discontinuing magnesium * Chronic kidney disease stage IIIa-stable * BPH-some of the BPH medications are also contributing to his orthostatic hypotension patient shoulddiscuss with urology * Constipation is probably due to midodrine. I have reduced midodrine dose at last visit. Still remains somewhat orthostatic. * Recommendations: * 1. Referral to Dr. Santiago for Watchman device * 2. Will need language interpreter to accompany patient to the office * 3. I tried to explain the rationale for the procedure the procedure, and some of the complications that may be associated with it, and the benefit that he can go off his anticoagulation if he were toget the Watchman device was also discussed. * 4. I did not change medications today, I am unable to uptitrate heart failure medications because of borderline blood pressure and tendency for orthostatic hypotension. * 5. Follow-up in 3 months or sooner if interval problems arise * I appreciate services of Mag Dumont who helped communicate my thoughts and recommendations with patient and today. -[facility] DO Work Phone: [phone] Evaluation note* Encounter Date Diagnosis Assessment Notes Treatment Notes Treatment Clinical Notes Oct, Chronic kidney disease, stage 3b (ICD-10 - N18.32) He has a CKD likely due to the hypertension. His serum creatinine is 1.5-2 mg/dL. He has a trace proteinuria without hematuria. He has unremarkable work-up for ANCA paraproteinemia, hepatitis MPGN orlupus. His renal ultrasound showed no evidence of obstructive uropathy. His renal US showed b/l renal cortical atrophy and renal cysts. He is not immune to hepatitis B and will need a vaccination. I have advised him to follow with your PCP for hepatitis B vaccine. Oct,Hypotension (ICD-10 - I95.9)He has a hypotension possibly due to the autonomic neuropathy. He takes midodrine. His blood pressure is within the target goal. Oct,Secondary hyperparathyroidism (ICD-10 - N25.81)MBD parameters Including Calcium, PTH, Phos and VitD are within the goal Oct,yslipidemia (ICD-10 - E78.5)Continue statins. Check LFTs and lipid profile. Clear. 13 Oct, 2022Hypothyroid (ICD-10 - E03.9)He has hypothyroidism currently takes levothyroxine. He noticed to have a tremors. I advised him tohave a follow-up with PCP his TSH may need to be checked to adjust levothyroxine dose [employer] Other 12-01-2022 History of Present illness Narrative* Assessment: * 1. Nonischemic cardiomyopathy LVEF has improved from 25% to about 40% based on perfusion study of July 2022 * 2. Abnormal EKG with marked prolongation of NH interval to 302, sinus bradycardia at 59, left axis deviation and pattern of anterior septal myocardial infarction however unchanged from EKG of May2022 * 3. No clinical pulmonary toxicity of amiodarone, liver enzymes are normal, TSH was normal in July 2022. Chest x-ray in July showed bibasilar atelectasis. Patient does not report any shortnessof breath * 4. Between October and May 2022 patient was placed on ProAmatine. This is not a good medication being an alpha agonist, particularly in a patient with BPH who also takes medications for BPH. The BPH medication can also cause orthostatic hypotension. Patient has cardiomyopathy and for that he would benefit from being on an angiotensin receptor xavier or Entresto, would not start carvedilol at this time given marked prolongation of NH interval. However we may first have to down titrate the ProAmatine before starting anything else. * 5. I am concerned that patient has neurological side effects from amiodarone such as tremor and drunken gait. * 6. Both patient and are deaf, and they also have difficulty with their speech, which makes communication somewhat difficult but can be accomplished with extra effort. * 7. Exertional shortness of breath-differential diagnosis includes chronotropic blunting versus amiodarone related -[facility]-Nabil 250 DO Work Phone: [phone]) 692-731312-01-2022 History of Present illness Narrative* Assessment: * 1. Nonischemic cardiomyopathy LVEF has improved from 25% to about 40% based on perfusion study of July 2022 * 2. Abnormal EKG with marked prolongation of NH interval to 302, sinus bradycardia at 59, left axis deviation and pattern of anterior septal myocardial infarction however unchanged from EKG of May2022 * 3. No clinical pulmonary toxicity of amiodarone, liver enzymes are normal, TSH was normal in July 2022. Chest x-ray in July showed bibasilar atelectasis. Patient does not report any shortnessof breath * 4. Between October and May 2022 patient was placed on ProAmatine. This is not a good medication being an alpha agonist, particularly in a patient with BPH who also takes medications for BPH. The BPH medication can also cause orthostatic hypotension. Patient has cardiomyopathy and for that he would benefit from being on an angiotensin receptor xavier or Entresto, would not start carvedilol at this time given marked prolongation of NH interval. However we may first have to down titrate the ProAmatine before starting anything else. * 5. I am concerned that patient has neurological side effects from amiodarone such as tremor and drunken gait. * 6. Both patient and are deaf, and they also have difficulty with their speech, which makes communication somewhat difficult but can be accomplished with extra effort. * 7. Exertional shortness of breath-differential diagnosis includes chronotropic blunting versus amiodarone related * 8. 48-hour Holter monitor November 2022-prolonged first-degree AV block, ventricular premature beats that comprised 11.5% of the total QRS complexes, longest R to R interval of 2 seconds occurred at 8:21 AM, patient did not report any symptoms atrial fibrillation was not identified. * 9. Echocardiogram November 2022-left atrial diameter 5.9 cm trace mitral regurgitation trace tricuspidregurgitation no pericardial or pleural effusion normal IVC size normal RV size and systolic function aortic valve normal left atrial volume index was not reported. TAPSE 2.4 cm. -[facility] 250 DO Work Phone: [phone]) 576-838105-09-2022 Hospital Discharge instructions Patient Education 12/27/2021 08:10:43 Urinary Frequency, Adult Urinary Frequency, Adult Urinary frequency means urinating more often than usual. You may urinate every 1 2 hours even though you drink a normal amount of fluid and do not have a bladder infection or condition. Although you urinate more often than normal, the total amount of urine produced in a day is normal. With urinary frequency, you may have an urgent need to urinate often. The stress and anxiety of needing to find a bathroom quickly can make this urge worse. This condition may go away on its own or you may need treatment at home. Home treatment may include bladder training, exercises, taking medicines, or making changes to your diet. Follow these instructions at home: Bladder health Keep a bladder diary if told by your health care provider. Keep track of: ?What you eat and drink. ?How often you urinate. ?How much you urinate. Follow a bladder training program if told by your health care provider. This may include: ?Learning to delay going to the bathroom. ?Double urinating (voiding). This helps if you are not completely emptying your bladder. ?Scheduled voiding. Do Kegel exercises as told by your health care provider. Kegel exercises strengthen the muscles that help control urination, which may help the condition. Eating and drinking If told by your health care provider, make diet changes, such as: ?Avoiding caffeine. ?Drinking fewer fluids, especially alcohol. ?Not drinking in the evening. ?Avoiding foods or drinks that may irritate the bladder. These include coffee, tea, soda, artificial sweeteners, citrus, tomato-based foods, and chocolate. ?Eating foods that help prevent or ease constipation. Constipation can make this condition worse. Your health care provider may recommend that you: ?Drink enough fluid to keep your urine pale yellow. ?Take hlhz-mir-brvgrnk or prescription medicines. ?Eat foods that are high in fiber, such as beans, whole grains, and fresh fruits and vegetables. ?Limit foods that are high in fat and processed sugars, such as fried or sweet foods. General instructions Take mifs-zxg-bpfwqsk and prescription medicines only as told by your health care provider. Keep all follow-up visits as told by your health care provider. This is important. Contact a health care provider if: You start urinating more often. You feel pain or irritation when you urinate. You notice blood in your urine. Your urine looks cloudy. You develop a fever. You begin vomiting. Get help right away if: You are unable to urinate. Summary Urinary frequency means urinating more often than usual. With urinary frequency, you may urinate every 1 2 hours even though you drink a normal amount of fluid and do not have a bladder infection or other bladder condition. Your health care provider may recommend that you keep a bladder diary, follow a bladder training program, or make dietary changes. If told by your health care provider, do Kegel exercises to strengthen the muscles that help control urination. Take jdnu-ihv-yqulsuu and prescription medicines only as told by your health care provider. Contact a health care provider if your symptoms do not improve or get worse. This information is not intended to replace advice given to you by your health care provider. Make sure you discuss any questions you have with your health care provider. Document Released: 06/03/2010 Document Revised: 02/14/2019 Document Reviewed: 02/14/2019 [employer] Patient Education 2019 [employer]. Follow Up Care 12/25/2020 11:30:10 With:POONAM CHATMAN, RJ Stout Address: [facility] [address], [place] [id number]- When: Unknown [facility] 03-29-2022 Evaluation note* Encounter Date Diagnosis Assessment Notes Treatment Notes Treatment Clinical Notes Oct, Chronic kidney disease, stage 3b (ICD-10 - N18.32) He has a CKD likely due to the hypertension. His serum creatinine is 1.5-2 mg/dL. He has a trace proteinuria without hematuria. He has unremarkable work-up for ANCA paraproteinemia, hepatitis MPGN orlupus. His renal ultrasound showed no evidence of obstructive uropathy. His renal US showed b/l renal cortical atrophy and renal cysts. He is not immune to hepatitis B and will need a vaccination. I have advised him to follow with your PCP for hepatitis B vaccine. Oct,Hypotension (ICD-10 - I95.9) He has a hypotension possibly due to the autonomic neuropathy. He takes midodrine. His blood pressure is within the target goal. Oct,econdary hyperparathyroidism (ICD-10 - N25.81) He has Vit D deficiency. Continue oral Vit D Oct,Iron deficiency (ICD-10 - E61.1) He had iron deficiency and currently takes oral iron. His hemoglobin is within the normal limit. [facility] Other 10-06-2021 Evaluation note* Encounter Date Diagnosis Assessment Notes Treatment Notes Treatment Clinical Notes May, Chronic kidney disease, stage 3b (ICD-10 - N18.32) He has a CKD likely due to the hypertension. His serum creatinine is 1.5-2 mg/dL. He has a trace proteinuria without hematuria. He has unremarkable work-up for ANCA paraproteinemia, hepatitis MPGN orlupus. His renal ultrasound showed no evidence of obstructive uropathy. His renal US showed b/l renal cortical atrophy and renal cysts. He is not immune to hepatitis B and will need a vaccination. I have advised him to follow with your PCP for hepatitis B vaccine. May,Hypotension (ICD-10 - I95.9) He has a hypotension possibly due to the autonomic neuropathy. He takes midodrine. His blood pressure is within the target goal. May,econdary hyperparathyroidism (ICD-10 - N25.81) He has Vit D deficiency. Continue oral Vit D May,Iron deficiency (ICD-10 - E61.1) He has iron deficiency and currently takes oral iron. His hemoglobin is within the normal limit. [facility] Other 03-01-2021 History of Present illness Narrative* Mr. De La Rosa is a 76-year-old male who is seen back today for follow-up on his cardiomyopathy and atrial fibrillation. Communication remains a limiting factor as both the patient and his are deafmaking communication difficult. He has not been seen since October 2020. He was cardioverted again in November 2020 but canceled his follow-up. He has a history of what is considered to be a nonischemic cardiomyopathy seen initially in 2018 with an ejection fraction that at one time was estimated at 20%. Heart catheterization was done in [place] demonstrated mostly mild disease in the 30% range in the LAD. Initially he was placed on amiodarone and was then cardioverted and did maintain sinus rhythm and he had significant improvement in his symptoms and ejection fraction improved into the 45 to 50% range. At the time of his last office visit in October 2020 he was back in atrial fibrillation and he again was cardioverted again. He is on amiodarone now and EKG today demonstrates sinus rhythm. He seems to indicate that he is doing reasonably well. Still has some shortness of breath with activity. No chest pain. No known recurrence of atrial fibrillation since his last cardioversion. * Physical exam: * Neck: No carotid bruits are heard * Lungs: Clear * Heart: Mostly regular rhythm without murmurs or extra sounds * Extremities: No significant edema * Recommendation is continuation of current medications including the amiodarone. He will need to have amiodarone follow-up testing. No changes are made. He is to return in 6 months for follow-up. [facility] [address] DO Work Phone: Evaluation + Plan note No data available for this section [facility] evaluation + Plan note Future Appointments Appointment Date:07/21/2023 10:25:00 AM Scheduled Provider: Location:[facility] Appointment Type:Surgery FT General Surgery [place] Evaluation + Plan note Future Appointments Appointment Date:09/19/2023 09:30:00 AM Scheduled Provider: Location:[facility] Appointment Type:Surgical PAT FT Appointment Date:10/09/2023 09:00:00 AM Scheduled Provider: Location:[facility] Appointment Type:Surgery FT Future Scheduled Tests Laboratory* Creatinine 07/06/23 [facility] Evaluation + Plan note Future Appointments Appointment Date:10/31/2023 10:20:00 AM Scheduled Provider:Jamel MARTINEZ MD Location:[facility] Appointment Type:GS Post Op 30 Future Scheduled Tests Laboratory* Creatinine 07/06/23 [facility] Evaluation + Plan note Future Appointments Appointment Date:11/21/2023 10:20:00 AM Scheduled Provider:Jamel MARTINEZ MD Location:[facility] Appointment Type:GS Post Op 30 Future Scheduled Tests Laboratory* Creatinine 07/06/23 [facility] evaluation noteNo Assessments Information Available [facility] noteNo assessment information available [facility]Evaluation note* Diagnosis Persistent atrial fibrillation (CMS/HCC)- Primary Atrial fibrillation Risk for falls Non-ischemic cardiomyopathy (CMS/HCC) Other primary cardiomyopathies Sympathotonic orthostatic hypotension Chronic systolic congestive heart failure, NYHA class 2 (CMS/HCC) Anticoagulated Encounter for long-term (current) use of anticoagulants Gait disturbance Abnormality of gait Shortness of breath Deaf mutism, acquired Deaf nonspeaking, not elsewhere classifiable documented in this encounter [facility] Work Phone: Evaluation note* Diagnosis Persistent atrial fibrillation (CMS/HCC)- Primary Atrial fibrillation Anticoagulated Encounter for long-term (current) use of anticoagulants Mild CAD Non-ischemic cardiomyopathy (CMS/HCC) Other primary cardiomyopathies Mixed hyperlipidemia Class 1 obesity due to excess calories without serious comorbidity with body mass index (BMI) of 30.0 to 30.9 in adult Sympathotonic orthostatic hypotension documented in this encounter [facility] Work Phone: Evaluation note* Diagnosis Onset Date Resolution Status Atrial fibrillation acuteBPH (benign prostatic hyperplasia)acuteCKD (chronic kidney disease) stage 3, GFR 30-59 ml/minacuteHyperlipidemiaacuteHyperuricemiaacutePrediabetesacute [facility] Work Phone: Evaluation note* Diagnosis Non-ischemic cardiomyopathy (Multi) Other primary cardiomyopathies Persistent atrial fibrillation (Multi) Atrial fibrillation Mild CAD Mixed hyperlipidemia Sympathotonic orthostatic hypotension Chronic systolic congestive heart failure, NYHA class 2 (Multi) Never smoked tobacco BMI 30.0-30.9,adult Deaf mutism, congenital Deaf nonspeaking, not elsewhere classifiable Benign prostatic hyperplasia with urinary frequency Stage 3a chronic kidney disease (Multi) Falls frequently Personal history of fall documented in this encounter [facility] Work Phone: Evaluation note* Diagnosis Paroxysmal atrial fibrillation (Multi)- Primary Atrial fibrillation documented in this encounter [facility] Work Phone: Evaluation note* Diagnosis Persistent atrial fibrillation (Multi)- Primary Atrial fibrillation Anticoagulated Encounter for long-term (current) use of anticoagulants Mild CAD Non-ischemic cardiomyopathy (Multi) Other primary cardiomyopathies Mixed hyperlipidemia Class 1 obesity due to excess calories without serious comorbidity with body mass index (BMI) of 30.0 to 30.9 in adult Sympathotonic orthostatic hypotension Atrial fibrillation, unspecified type (Multi) documented in this encounter [facility] Work Phone: Evaluation note* Diagnosis Onset Date Resolution Status Chronic hypotension acuteCKD (chronic kidney disease) stage 3, GFR 30-59 ml/minacuteHyperlipidemia acuteHyperuricemiaacuteSecondary hyperparathyroidismacute [facility] Work Phone: Evaluation note* Diagnosis Persistent atrial fibrillation (Multi)- Primary Atrial fibrillation Anticoagulated Encounter for long-term (current) use of anticoagulants Mild CAD Non-ischemic cardiomyopathy (Multi) Other primary cardiomyopathies Mixed hyperlipidemia Class 1 obesity due to excess calories without serious comorbidity with body mass index (BMI) of 30.0 to 30.9 in adult Sympathotonic orthostatic hypotension Presence of Watchman left atrial appendage closure device Cerebrovascular accident (CVA), unspecified mechanism (Multi) Anticoagulated Encounter for long-term (current) use of anticoagulants Non-ischemic cardiomyopathy (Multi) Other primary cardiomyopathies Chronic systolic congestive heart failure, NYHA class 2 Deaf mutism, congenital Deaf nonspeaking, not elsewhere classifiable Risk for falls Stage 3a chronic kidney disease (Multi) BMI 31.0-31.9,adult Permanent atrial fibrillation (Multi) Atrial fibrillation documented in this encounter [facility] Work Phone: Evaluation note* Diagnosis Cerebrovascular accident (CVA) due to embolism of right middle cerebral artery (CMS/HCC)- Primary Weakness of wrist Weakness of left hand Muscle weakness (generalized) documented in this encounter [facility] HealthcareEvaluation note* Diagnosis Atrial fibrillation, unspecified type (Multi) Preop cardiovascular exam Pre-operative cardiovascular examination Presence of Watchman left atrial appendage closure device Postop check Follow-up examination, following unspecified surgery Atrial fibrillation, unspecified type (Multi) documented in this encounter [facility] Work Phone: Evaluation note* Diagnosis Atrial fibrillation, unspecified type (Multi) documented in this encounter [facility] Work Phone: Evaluation note* Diagnosis Persistent atrial fibrillation (Multi)- Primary Atrial fibrillation Anticoagulated Encounter for long-term (current) use of anticoagulants Mild CAD Non-ischemic cardiomyopathy (Multi) Other primary cardiomyopathies Mixed hyperlipidemia Class 1 obesity due to excess calories without serious comorbidity with body mass index (BMI) of 30.0 to 30.9 in adult Sympathotonic orthostatic hypotension Chronic systolic congestive heart failure, NYHA class 2 (Multi) Non-ischemic cardiomyopathy (Multi) Other primary cardiomyopathies Mild CAD Persistent atrial fibrillation (Multi) Atrial fibrillation Mixed hyperlipidemia Sympathotonic orthostatic hypotension Stage 3a chronic kidney disease (Multi) Presence of Watchman left atrial appendage closure device BMI 31.0-31.9,adult documented in this encounter [facility] Work Phone: Evaluation note* Diagnosis Persistent atrial fibrillation (Multi)- Primary Atrial fibrillation Anticoagulated Encounter for long-term (current) use of anticoagulants Mild CAD Non-ischemic cardiomyopathy (Multi) Other primary cardiomyopathies Mixed hyperlipidemia Class 1 obesity due to excess calories without serious comorbidity with body mass index (BMI) of 30.0 to 30.9 in adult Sympathotonic orthostatic hypotension Non-ischemic cardiomyopathy (Multi) Other primary cardiomyopathies Chronic systolic congestive heart failure, NYHA class 2 Persistent atrial fibrillation (Multi) Atrial fibrillation Cerebrovascular accident (CVA), unspecified mechanism (Multi) Presence of Watchman left atrial appendage closure device Stage 3a chronic kidney disease (Multi) Deaf mutism, congenital Deaf nonspeaking, not elsewhere classifiable Sympathotonic orthostatic hypotension Risk for falls BMI 30.0-30.9,adult documented in this encounter [facility] Work Phone: Evaluation note* Diagnosis Persistent atrial fibrillation (Multi)- Primary Atrial fibrillation Anticoagulated Encounter for long-term (current) use of anticoagulants Mild CAD Non-ischemic cardiomyopathy (Multi) Other primary cardiomyopathies Mixed hyperlipidemia Class 1 obesity due to excess calories without serious comorbidity with body mass index (BMI) of 30.0 to 30.9 in adult Sympathotonic orthostatic hypotension Non-ischemic cardiomyopathy (Multi) Other primary cardiomyopathies Presence of Watchman left atrial appendage closure device Anticoagulated Encounter for long-term (current) use of anticoagulants Chronic systolic congestive heart failure, NYHA class 2 (Multi) Mixed hyperlipidemia Dizziness Dizziness and giddiness Use of cane as ambulatory aid Deaf mutism, congenital Deaf nonspeaking, not elsewhere classifiable Never smoked tobacco Body mass index (BMI) of 31.0 to 31.9 in adult Benign prostatic hyperplasia, unspecified whether lower urinary tract symptoms present documented in this encounter [facility] Work Phone: Evaluation note* Diagnosis Onset Date Resolution Status Admit Date Atrial fibrillation acuteJune 10, 2025 10:12amBPH (benign prostatic hyperplasia)acuteJune 10, 2025 10:12amCKD (chronic kidney disease) stage 3, GFR 30-59 ml/minacute June 10, 2025 10:12amHyperlipidemiaacuteOct2024 10:12am HyperuricemiaacuteJune 10, 2025 10:12amPrediabetesacuteJune 10, 2025 10:12amSecondary hyperparathyroidismacuteJune 10, 2025 10:12am [facility] Work Phone: History general Narrative - Reported* Type Description Date Medical History HTN Medical Historyheart diseaseMedical HistoryhypercholesterolemiaMedical History DIABETES MELLITUS ADULT ONSETMedical HistoryEDEMA OF LOWER LEG BILATERALMedical HistoryCARDIOMYOPATHYMedical HistoryCHRONIC KIDNEY DISEASE STAGE 3Medical HistoryPAROXYSMAL ATRIAL FIBRILLATIONMedical HistoryPALPITATIONSMedical History BENIGN PROSTATIC HYPERTROPHY WITH OBSTRUCTIONMedical HistoryECZEMAMedical HistoryLOW BACK PAIN SYNDROMEMedical HistoryCAROTID BRUIT RIGHTMedical History HEMIBLOCK, LET ANTERIORMedical HistoryDEAFNESS, CONGENITALMedical HistoryGERD Surgical Historycolon [id number] HistorySEE ABOVEHospitalization Historyfall, dizziness, anemia08/2020 [facility] Other History of Present illness Narrative* The patient states he has been generally stable since the last visit. Comorbid Illnesses: hyperlipidemia. * Symptoms: worsened exertional chest pain, worsened dyspnea, worsened fatigue, worsened exercise intolerance, stable palpitations and stable dizziness. * Disease Monitoring: [facility] [address] DO Work Phone: History of Present illness Narrative* Patient is new to this provider. Patient is accompanied by his to the office. They are both deaf. They also have speech difficulties. As a result, considerable amount of time was spent writing out questions, they are able to communicate through a combination of writing and hand gestures. Previously seen by Dr. Lockhart, and subsequently by Asya Mendoza. * I have reviewed notes by both providers. * Per Dr. Lockhart's most recent office note dated November 01, 2021: * Mr. De La Rosa is a 76-year-old male who is seen back today for follow-up on his cardiomyopathy and atrial fibrillation. Communication remains a limiting factor as both the patient and his are deafmaking communication difficult. He has not been seen since October 2020. He was cardioverted again in November 2020 but canceled his follow-up. He has a history of what is considered to be a nonischemic cardiomyopathy seen initially in 2018 with an ejection fraction that at one time was estimated at 20%. Heart catheterization was done in [place] demonstrated mostly mild disease in the 30% range in the LAD. Initially he was placed on amiodarone and was then cardioverted and did maintain sinus rhythm and he had significant improvement in his symptoms and ejection fraction improved into the 45 to 50% range. At the time of his last office visit in October 2020 he was back in atrial fibrillation and he again was cardioverted again. He is on amiodarone now and EKG today demonstrates sinus rhythm. He seems to indicate that he is doing reasonably well. Still has some shortness of breath with activity. No chest pain. No known recurrence of atrial fibrillation since his last cardioversion. * Assessment ( as per Asya Mendoza [employer] note of 05/2022 :) * Mild CAD (414.00) (I25.10) * December 2017 cardiac cath * Mid LAD 30% * Proximal circumflex 30% * RCA nondominant * Echo prior to cath LVEF 25% * October 2020 perfusion study fixed inferior defect * Non-ischemic cardiomyopathy (425.4) (I42.8) * 2018 EF 25% * February 2019 echo LVEF 45 to 50% * October 2020 MPI LVEF 49% * He has been maintained on Coreg and lisinopril since December 2017. Presents today off * medication with addition of midodrine. * I cannot elicit any type of orthopnea or PND, no dyspnea on exertion ambulating from * exam room to front of office * Persistent atrial fibrillation (427.31) (I48.19) * EKG in office normal sinus rhythm on amiodarone 200 mg daily, QTC 450 * November 2020 cardioversion * Anticoagulated (V58.61) (Z79.01) * CHADS VASc 3 full dose Eliquis age 76, weight 192 * High risk medication use (V58.69) (Z79.899) * Amiodarone start date March 2018 * Surveillance testing November 2021 * Mixed hyperlipidemia (272.2) (E78.2) * Moderate intensity statin * Sympathotonic orthostatic hypotension (458.0) (I95.1) * Quiescent on midodrine * Class 1 obesity with body mass index (BMI) of 30.0 to 30.9 in adult (278.00,V85.30) * (E66.9,Z68.30) * This patient remains on high risk medications amiodarone and Eliquis. No bleeding diathesis. * He has nonischemic cardiomyopathy functional class II. His LV ejection fraction did improve to 40 to 45%, no recent testing, chads 2 vascular score is 3, no history of falls, uses cane for assistance. * Patient's carvedilol and SHANIQUE inhibitors were noted to have been discontinued, with initiation of ProAmatine, per Asya Mendoza NP's office note of May 2022. * Patient is not orthostatic in the office. He does not have symptoms of orthostatic hypotension. What he has to do is symptoms concerning for amiodarone toxicity or side effects, to include a tremor, unsteady wobbly/drunken gait, and a tendency to hold onto objects to avoid falls. These are all characteristic side effects of amiodarone. * Patient does notice exertional shortness of breath and fatigue. This could be chronotropic blunting, but amiodarone induced pulmonary toxicity will also need to be excluded. * Patient reports compliance with medications. * There is also history of dizziness with changes in posture such as bending down and straightening up, typical example is that he gets very dizzy when he bends to pet his cat and then straightens up. * EKG today shows sinus bradycardia with prolonged NH interval of 302 ms pattern of anterior septal myocardial infarction and no change compared to a previous EKG in the chart from May 2022. * Hemoglobin and hematocrit from October 2022 show 15 and 44 with platelet count of 236, creatinine is 1.59 sodium 135 potassium 4.8, no evidence of iron deficiency, liver enzymes are normal, there appears to be CKD stage IIIa. * Patient is also on more than one medication for prostate hypertrophy. * Assessment: * 1. Nonischemic cardiomyopathy LVEF has improved from 25% to about 40% based on perfusion study of July 2022 * 2. Abnormal EKG with marked prolongation of NH interval to 302, sinus bradycardia at 59, left axis deviation and pattern of anterior septal myocardial infarction however unchanged from EKG of May2022 * 3. No clinical pulmonary toxicity of amiodarone, liver enzymes are normal, TSH was normal in July 2022. Chest x-ray in July showed bibasilar atelectasis. Patient does not report any shortnessof breath * 4. Between October and May 2022 patient was placed on ProAmatine. This is not a good medication being an alpha agonist, particularly in a patient with BPH who also takes medications for BPH. The BPH medication can also cause orthostatic hypotension. Patient has cardiomyopathy and for that he would benefit from being on an angiotensin receptor xavier or Entresto, would not start carvedilol at this time given marked prolongation of NH interval. However we may first have to down titrate the ProAmatine before starting anything else. * 5. I am concerned that patient has neurological side effects from amiodarone such as tremor and drunken gait. * 6. Both patient and are deaf, and they also have difficulty with their speech, which makes communication somewhat difficult but can be accomplished with extra effort. * 7. Exertional shortness of breath-differential diagnosis includes chronotropic blunting versus amiodarone related * Recommendations: * 1. Decrease amiodarone to 200 mg p.o. every other day * 2. Check echocardiogram, 48-hour Holter, to look for bradycardia dysrhythmias, BNP level, free T4 TSH, pulmonary function testing without without DLCO for amiodarone surveillance. * 3. Follow-up after testing sooner if interval problems arise * 4. At next visit, I would like to down titrate the ProAmatine based on his orthostatics. * 5. There is always a concern that with withdrawal of amiodarone he may go back into atrial fibrillation which he may not tolerate, but we may have alternate options such as sotalol or dofetilide for his atrial dysrhythmia. We are also looking into his need for permanent pacemaker. * Patient and are very appreciative of care. -[facility] Arce DO Work Phone: History of Present illness Narrative* Today we have the luxury of the language interpreter, who provides us with a lot of information. Patient is accompanied by his to the office. At his last office visit we discontinued amiodarone because Isensed that he was having several side effects of amiodarone such as drunken gait, tendency to bumpinto objects. He says that those symptoms have improved considerably, but later on he says that hisgait is quite wobbly. * He does not complain of any shortness of breath or chest discomfort. His tells me that he is always resting and sleeping, and not doing much work. Clinically he does not appear volume overloaded. * For the last 2 to 3 days patient has been having GERD symptoms. * Continues to complain of orthostatic lightheadedness. * Remains on midodrine, the dose of which I think we can cut back, given today's blood pressure readings. * Patient denies any falls or bleeding diathesis. * The language interpreter's name is Mag Dumont. * Laboratory data reviewed, free T4 is elevated at 1.34. TSH is 2.22. Echo and Holter results were reviewed. * Assessment: * 1. Nonischemic cardiomyopathy LVEF has improved from 25% to about 40% based on perfusion study of July 2022 * 2. Abnormal EKG with marked prolongation of NH interval to 302, sinus bradycardia at 59, left axis deviation and pattern of anterior septal myocardial infarction however unchanged from EKG of May2022 * 3. No clinical pulmonary toxicity of amiodarone, liver enzymes are normal, TSH was normal in July 2022. Chest x-ray in July showed bibasilar atelectasis. Patient does not report any shortnessof breath * 4. Between October and May 2022 patient was placed on ProAmatine. This is not a good medication being an alpha agonist, particularly in a patient with BPH who also takes medications for BPH. The BPH medication can also cause orthostatic hypotension. Patient has cardiomyopathy and for that he would benefit from being on an angiotensin receptor xavier or Entresto, would not start carvedilol at this time given marked prolongation of NH interval. However we may first have to down titrate the ProAmatine before starting anything else. * 5. I am concerned that patient has neurological side effects from amiodarone such as tremor and drunken gait. * 6. Both patient and are deaf, and they also have difficulty with their speech, which makes communication somewhat difficult but can be accomplished with extra effort. * 7. Exertional shortness of breath-differential diagnosis includes chronotropic blunting versus amiodarone related * 8. 48-hour Holter monitor November 2022-prolonged first-degree AV block, ventricular premature beats that comprised 11.5% of the total QRS complexes, longest R to R interval of 2 seconds occurred at 8:21 AM, patient did not report any symptoms atrial fibrillation was not identified. * 9. Echocardiogram November 2022-left atrial diameter 5.9 cm trace mitral regurgitation trace tricuspidregurgitation no pericardial or pleural effusion normal IVC size normal RV size and systolic function aortic valve normal left atrial volume index was not reported. TAPSE 2.4 cm. * 10. BNP level 346 November 2022-reference 5-100. * EKG today sinus rhythm 67 bpm NH interval 284 ms QRS duration 114 ms QTc 483 ms ventricular bigeminy. * Patient with history of atrial fibrillation on high risk medication amiodarone, amiodarone was discontinued at last office visit because of potential side effects, patient also on midodrine for arterial hypotension, he is on levothyroxine supplementation, his free T4 is elevated, he remains on highrisk medication Eliquis, without bleeding diathesis, his [id number] score is 3/4, he is a difficult historian because of his challenges with expression, he has prolonged first-degree AV block, I believe he still has some shortness of breath and wobbly gait. * The amiodarone will not be out of his system for another few weeks. * Recommendations: * 1. Decrease midodrine to 5 mg, continue in place of 10 mg * 2. Abnormal thyroid function-defer to primary * 3. Patient has BPH as evidenced by his medications, but he has been tolerating the midodrine. * 4. Fall precautions were reiterated * 5. Diovan 40 mg p.o. daily * 6. Magnesium oxide 400 mg p.o. twice daily * 7. Basic metabolic profile 1 to 2 weeks * 8. Follow-up in 6 weeks, with orthostatics at next visit, atrial fibrillation may recur, in which case patient may be a candidate for alternate antiarrhythmic therapy. -[facility] DO Work Phone: Hospital Discharge instructions No data available for this section [facility] [place] Progress note No data available for this section [facility] [place] Reason for referral (narrative)* Consultation (Routine) - Pending ReviewSpecialtyDiagnoses / ProceduresReferred By ContactReferred To ContactCardiology Diagnoses Risk for falls Persistent atrial fibrillation (CMS/HCC) Sympathotonic orthostatic hypotension Anticoagulated Viki Cooney MD [address] [facility] [address] [place] [address] [place] [address] [place] [address] Referral IDStatusReasonStart DateExpiration DateVisits RequestedVisits [id number] Review Specialty Services Required / * Consultation (Routine) - ClosedSpecialtyDiagnoses / ProceduresReferred By ContactReferred To ContactCardiology Diagnoses Risk for falls Persistent atrial fibrillation (CMS/HCC) Sympathotonic orthostatic hypotension Anticoagulated Procedures NH OFFICE/OUTPATIENT NEW HIGH MDM 60-74 MINUTES Viki Cooney MD [address] [address] [place] [address] [place] [address] Referral IDStatusReasonStart DateExpiration DateVisits RequestedVisits [id number] Specialty Services Required * Consultation (Routine) - AuthorizedSpecialtyDiagnoses / ProceduresReferred By ContactReferred To ContactCardiology Diagnoses Non-ischemic cardiomyopathy (CMS/HCC) Persistent atrial fibrillation (CMS/HCC) Procedures Follow Up In Cardiology Viki Cooney MD [address] [facility] [address] [place] [address] Referral IDStatusReasonStart DateExpiration DateVisits RequestedVisits [id number]/5/20234/ [facility] Work Phone: Reason for referral (narrative) Referred by: JUAN CHATMAN, Jamel JohnsonU[facility] [place] Reason for referral (narrative)* Consultation (Routine) - AuthorizedSpecialtyDiagnoses / ProceduresReferred By ContactReferred To ContactCardiology Diagnoses Non-ischemic cardiomyopathy (Multi) Procedures Follow Up In Cardiology Viki Cooney MD [address] [facility] [address] [place] [address] Viki Cooney MD [address] [facility] [address] [place] [address] Referral IDStatusReasonStart DateExpiration DateVisits RequestedVisits [id number]/15/20244/ [facility] Work Phone: Reason for referral (narrative)No reason for referral information availableMercy [facility] Work Phone: Reason for visit Narrative* Imaging (Routine) - AuthorizedSpecialtyDiagnoses / ProceduresReferred By ContactReferred To ContactRadiology Diagnoses Atrial fibrillation, unspecified type (Multi) Procedures CT watch[place] [address] [place] [address] Phone: tel: fax: Referral IDStatusReasonStart DateExpiration DateVisits RequestedVisits [id number] Perform Procedure / [facility] Work Phone: Summary Purpose Family History Relationship Condition Age at Onset Recorded Date/T meño Not Specified Unknown family medical history Unknown Unknown Family Member Name Dates Details Family history of cardiac pa cemaker: Father(V17.49, Z82.49) Status:Active Unknown Family Member Name Dates Details Family history of cardiac pa cemaker: Father(V17.49, Z82.49) Status:Active Unknown Family Member Name Dates Details Family history of cardiac pa cemaker: Father(V17.49, Z82.49) Status:Active Unknown Family Member Name Dates Details Family history of cardiac pa cemaker: Father(V17.49, Z82.49) Status:Active Unknown Family Member Name Dates Details Family history of cardiac pa cemaker: Father(V17.49, Z82.49) Status:Active Unknown Family Member Name Dates Details Family history of cardiac pa cemaker: Father(V17.49, Z82.49) Status:Active Unknown Family Member Name Dates Details Family history of cardiac pa cemaker: Father(V17.49, Z82.49) Status:Active Unknown Family Member Name Dates Details Family history of cardiac pa cemaker: Father(V17.49, Z82.49) Status:Active Unknown Family Member Name Dates Details Family history of cardiac pa cemaker: Father(V17.49, Z82.49) Status:Active Unknown Family Member Name Dates Details Family history of cardiac pa cemaker: Father(V17.49, Z82.49) Status:Active Unknown Family Member Name Dates Details Family history of cardiac pa cemaker: Father(V17.49, Z82.49) Status:Active Unknown Family Member Name Dates Details Family history of cardiac pa cemaker: Father(V17.49, Z82.49) Status:Active Unknown Family Member Name Dates Details Family history of cardiac pa cemaker: Father(V17.49, Z82.49) Status:Active Unknown Family Member Name Dates Details Family history of cardiac pa cemaker: Father(V17.49, Z82.49) Status:Active Unknown Family Member Name Dates Details Family history of cardiac pa cemaker: Father(V17.49, Z82.49) Status:Active Unknown Family Member Name Dates Details Family history of cardiac pa cemaker: Father(V17.49, Z82.49) Status:Active Unknown Family Member Name Dates Details Family history of cardiac pa cemaker: Father(V17.49, Z82.49) Status:Active Unknown Family Member Name Dates Details Family history of cardiac pa cemaker: Father(V17.49, Z82.49) Status:Active Unknown Family Member Name Dates Details Family history of cardiac pa cemaker: Father(V17.49, Z82.49) Status:Active Relationship Condition Age at Onset Recorded Date/T meño Not Specified Unknown family medical history Unknown fatherDeceasedUnknownHeart diseaseUnknownNot SpecifiedHeart diseaseUnknown DeceasedUnknownsisterDeceasedUnknown Relationship Condition Age at Onset Recorded Date/T meño Not Specified Unknown family medical history Unknown fatherDeceasedUnknownHeart diseaseUnknownmotherHeart diseaseUnknownDeceased UnknownsisterDeceasedUnknown Advance Directives Advance Directive Response Recorded Date/ Time Advance Directives No April 9:06am Advance Directive Response Recorded Date/ Time Advance Directives No April 10:06am Advance Directive Response Recorded Date/ Time Advance Directives No July 4:51pm Advance Directive Response Recorded Date/ Time Advance Directives No July 5:51pm Date ActivatedDate InactivatedComments02/09/2024 7:06 PMQuestionAnswerComments Plan of Care:* Code Status Discussion Completed Decision Maker:* Patient Date ActivatedDate InactivatedComments02/09/2024 4:40 PM02/09/2024 7:06 PMQuestion AnswerCommentsPlan of Care:* Code Status Discussion Completed Decision Maker:* Patient Date ActivatedDate InactivatedComments02/09/2024 7:06 PMQuestionAnswerComments Plan of Care:* Code Status Discussion Completed Decision Maker:* Patient Date ActivatedDate InactivatedComments02/09/2024 4:40 PM02/09/2024 7:06 PMQuestion AnswerCommentsPlan of Care:* Code Status Discussion Completed Decision Maker:* Patient Chief Complaint and Reason for Visit Chief Complaint N18.2,I12.9 Chief Complaint N18.2,I12.9 N18.32 I12.9 D63.1 N25.81 Chief Complaint N18.32 I12.9 D63.1 N 25.81 z79.899 i48.91 Chief Complaint N18.32 I12.9 D63.1 N 25.81 z79.899 i48.91 afib Chief Complaint N18.32 I12.9 D63.1 N 25.81 z79.899 i48.91 afib Iron Deficiency Anemia Chief Complaint N18.32 I12.9 D63.1 N 25.81 z79.899 i48.91 afib Iron Deficiency Anemia Iron Deficiency Anemia Chief Complaint N18.32 I12.9 D63.1 N 25.81 z79.899 i48.91 afib Iron Deficiency Anemia Iron Deficiency Anemia Iron Deficiency Anemia Chief Complaint i48.19 z79.899 Chief Complaint i48.19 z79.899 N18.32 I95.9 N25.81 E61.1 Chief Complaint N18.32 I95.9 N25.81 E61.1 z79.899 i48.19 r06.02 Chief Complaint i95.1 r00.2 d63.1 i1 2.9 e11.9 renal 1 year f/uReason for VisitAtrial fibrillation BPH (benign prostatic hyperplasia) CKD (chronic kidney disease) stage 3, GFR 30-59 ml/min Hyperlipidemia Hyperuricemia Prediabetes Secondary hyperparathyroidism Chief Complaint i95.1 r00.2 d63.1 i1 2.9 e11.9 renal 1 year f/u I48.91Reason for VisitAtrial fibrillation BPH (benign prostatic hyperplasia) CKD (chronic kidney disease) stage 3, GFR 30-59 ml/min Hyperlipidemia Hyperuricemia Prediabetes Secondary hyperparathyroidism Chief Complaint I48.91 I50.22 E78.2 I25.10 Chief Complaint I48.91 I50.22 E78.2 I25.10 RENAL 6 MONTH F/UReason for VisitChronic hypotension CKD (chronic kidney disease) stage 3, GFR 30-59 ml/min Hyperlipidemia Hyperuricemia Secondary hyperparathyroidism Chief Complaint Admit Date R29.898 September 10, 2024 1 1:15am i48.19 i25.10 e78.2 October 09, 2024 1:19pm Chief Complaint Admit Date E79.0 I95..89 N25.81 E78.5 June 05, 2025 9:23am Chief Complaint Admit Date E79.0 I95..89 N25.81 E78.5 June 05, 2025 9:23am N25.81 I95.89 N18.30 E79.0 June 06, 2025 11:44am Chief Complaint Admit Date E79.0 I95..89 N25.81 E78.5 June 05, 2025 9:23am N25.81 I95.89 N18.30 E79.0 June 06, 2025 11:44am RENAL 1 YR F/U June 10, 2025 1 0:12am Reason for Visit Admit Date Atrial fibrillation June 10, 2025 1 0:12am BPH (benign prostatic hyperplasia) Octob 2024 10:12am CKD (chronic kidney disease) stage 3, GF R 30-59 ml/min June 10, 2025 10:12am Hyperlipidemia June 10, 2025 1 0:12am Hyperuricemia June 10, 2025 1 0:12am Prediabetes June 10, 2025 1 0:12am Secondary hyperparathyroidism June 102024 10:12am Assessments No Assessments Information AvailableNo Assessments Information AvailableNo Assessments Information AvailableNo Assessments Information Available Chief Complaint AYAD DE LA ROSA is being seen for an annual follow-up of.[place] [facility] [place]* Routine f/u * AYAD DE LA ROSA is being seen for a 6 month follow-up of atrial fibrillation, coronary artery disease, cardiomyopathy and dyslipidemia. AYAD KATTY is being seen for a 6 month follow-up of.[place] [facility] [place] due in JanuaryJOEJOHN DE LA ROSA is being seen for a 4 week follow-up of.AYAD KATTY is being seen for a 4 week follow-up of.AYAD KATTY is being seen for a 6 week follow-up of.AYAD DE LA ROSA is being seen for a 6 week follow- up of.AYAD KATTY is being seen for a 6 week follow-up of. Reason for Referral SpecialtyDiagnoses / ProceduresReferred By ContactReferred To ContactRadiology Diagnoses Atrial fibrillation, unspecified type (Multi) Procedures CT watch[place] [address] [place] [address] Referral IDStatusReasonStart DateExpiration DateVisits RequestedVisits [id number] Review Perform Procedure [id number] / ProceduresReferred By ContactReferred To ContactCardiology Diagnoses Persistent atrial fibrillation (CMS/HCC) Procedures Holter Or Event Public Policy Coordinator Asya Mendoza, INVENTORY AUDITOR-ENGLISH COMPOSITION INSTRUCTOR [address] [facility] [address], [place] [address] Referral IDStatusReasonStart DateExpiration DateVisits RequestedVisits [id number] [id number] / Procedures Referred By ContactReferred To Contact Diagnoses Persistent atrial fibrillation (CMS/HCC) Procedures ECG 12 Lead Asya Mendoza, INVENTORY AUDITOR-ENGLISH COMPOSITION INSTRUCTOR [address] [facility] [address], [place] [id number] Referral IDStatusReasonStart DateExpiration DateVisits RequestedVisits [id number]/7/20242/6/202511 Additional Source Comments (unrecognized sect ion and content) No Status Records FoundNo Status Records FoundNo Status Records FoundNo Status Records FoundNo Status Records FoundNo Status Records FoundNo Status Records FoundNo Status Records FoundNo Status Records FoundNo Status Records FoundNo Status Records FoundNo Status Records FoundNo Status Records FoundNo Status Records FoundNo Status Records FoundNo Status Records FoundNo Status Records FoundNo Status Records FoundNo Status Records FoundNo Status Records FoundNo Status Records FoundNo Status Records FoundNo Status Records FoundNo Status Records FoundNo Status Records FoundNo Status Records FoundNo Status Records FoundNo Status Records FoundNo Status Records FoundNo Status Records FoundNo Status Records FoundNo Status Records FoundNo Status Records FoundNo Status Records Found INFORMATION SOURCE (unrecogn ized section and content) DATE CREATED AUTHOR 02/06/2018 [facility] DATE CREATED AUTHOR AUTHOR'S ORGANIZ ATION 06/03/[address] [facility] DATE CREATED AUTHOR AUTHOR'S ORGANIZ ATION 07/23/2022 [facility] DATE CREATED AUTHOR AUTHOR'S ORGANIZ ATION 02/12/2023 [facility] DATE CREATED AUTHOR AUTHOR'S ORGANIZ ATION 02/13/2024 [facility] DATE CREATED AUTHOR AUTHOR'S ORGANIZ ATION 06/21/2024 [facility] DATE CREATED AUTHOR AUTHOR'S ORGANIZ ATION 06/22/2024 [facility] DATE CREATED AUTHOR AUTHOR'S ORGANIZ ATION 06/23/2024 [facility] DATE CREATED AUTHOR AUTHOR'S ORGANIZ ATION 06/24/2024 [facility] DATE CREATED AUTHOR AUTHOR'S ORGANIZ ATION 07/02/2024 [facility] DATE CREATED AUTHOR AUTHOR'S ORGANIZ ATION 08/01/2024 [facility] DATE CREATED AUTHOR AUTHOR'S ORGANIZ ATION 09/18/2024 [facility] DATE CREATED AUTHOR AUTHOR'S ORGANIZ ATION 10/05/2024 [facility] DATE CREATED AUTHOR AUTHOR'S ORGANIZ ATION 05/25/2025 [facility] DATE CREATED AUTHOR AUTHOR'S ORGANIZ ATION 06/13/2025 [facility] Goals (unrecognized section and content) Goals may be documented in a n alternate section No data available for this sectionNo InformationNo InformationGoals may be documented in an alternate sectionGoals may be documented in an alternate sectionNo InformationGoals may be documented in an alternate section No data available for this section No data available for this section No data available for this section No data available for this section No data available for this section No data available for this section No data available for this section No data available for this section No data available for this section No data available for this sectionGoals may be documented in an alternate sectionGoals may be documented in an alternate sectionGoals may be documented in an alternate sectionGoals may be documented in an alternate section No data available for this sectionGoals may be documented in an alternate sectionGoals may be documented in an alternate sectionGoals may be documented in an alternate sectionGoals may be documented in an alternate sectionGoals may be documented in an alternate section REASON FOR VISIT (unrecogniz ed section and content) CparirIjigwbhpJcrwvl-ia1vXzlcxxPekbmmyvAhz-cy ClearanceDr. NillSpecialty Diagnoses / ProceduresReferred By ContactReferred To Contact Diagnoses Persistent atrial fibrillation (CMS/HCC) Procedures ECG 12 Lead Asya Mendoza, INVENTORY AUDITOR-ENGLISH COMPOSITION INSTRUCTOR [address] [facility] [place] [address] Referral IDStatusReasonStart DateExpiration DateVisits RequestedVisits [id number]/7/20242/[id number]-wp4cNeuzpyonv Diagnoses / ProceduresReferred By ContactReferred To ContactCardiology Diagnoses Non-ischemic cardiomyopathy (Multi) Persistent atrial fibrillation (Multi) Procedures Follow Up In Cardiology Viki Cooney MD [address] [facility] [address] [place] [address] Referral IDStatusReasonStart DateExpiration DateVisits RequestedVisits [id number]/5/20234/[id number]jnfwPqqorrkq Follow-up6 monthSpecialtyDiagnoses / ProceduresReferred By ContactReferred To ContactCardiology Diagnoses Non-ischemic cardiomyopathy (Multi) Procedures Follow Up In Cardiology Viki Cooney MD Phone: tel: fax: Viki Cooney MD [address] [facility] [address] [place] [address] Phone: tel: fax: Referral IDStatusReasonStfaison DateExpiration DateVisits RequestedVisits [id number]/15/20244/[id number], GenFacial DroopSpecialtyDiagnoses / ProceduresReferred By ContactReferred To Contact Diagnoses Atrial fibrillation, unspecified type (Multi) Atrial fibrillation, unspecified type (Multi) [I48.91] Procedures NH EXCLUSION LEFT ATRIAL APPENDAGE OPEN ANY METHOD NH PERQ CLSR TCAT L ATR APNDGE W/ENDOCARDIAL IMPLNT LAAO (Left Atrial Appendage [place]) [place] [address] [place] [address] [facility] [id number] [address] [address] [facility] [address] [place] [address] Referral IDStatusReasonStart DateExpiration DateVisits RequestedVisits [id number]-up9 weeks, s/p watchmanReasonComments Follow-jf1cEdcrlofllTtrfblifw / ProceduresReferred By ContactReferred To Contact Cardiology Diagnoses Persistent atrial fibrillation (Multi) Non-ischemic cardiomyopathy (Multi) Chronic systolic congestive heart failure, NYHA class 2 Procedures Follow Up In Cardiology Viki Cooney MD [address] [place] [address] Phone: tel: fax: Viki Cooney MD [address] [place] [address] Phone: tel: fax: Referral IDStatusReasonStart DateExpiration DateVisits RequestedVisits [id number]/25/202411/25/889419IdjhndUvywjhywWeqalg-mr2 months Chronic systolic congestive heart failure, NYHA class 2 (Multi)Specialty Diagnoses / ProceduresReferred By ContactReferred To ContactCardiology Diagnoses Non-ischemic cardiomyopathy (Multi) Procedures Follow Up In Cardiology Viki Cooney MD [address] [place] [address] Phone: tel:[phone] fax: Viki Cooney MD [address] [place] [address] Phone: tel: fax: Referral IDStatusReasonStart DateExpiration DateVisits RequestedVisits [id number]/24/20252/ Care Teams (unrecognized sec tion and content) Team Status: Active Member Role Status Pauline Tyson MD Primary Care Provider Active Team Status: Inactive Member Role Status Pauline Tyson MD Primary Care Provider Active Start: September 10, 2024 End: September 10Juana Ly ProviderActiveStart: September 10, 2024 End: September 10, 2024 Team Status: Inactive Member Role Status Pauline Tyson MD Primary Care Provider Active Start: October 09, 2024 End: October 09, 2024Beth Conway ProviderActiveStart: October 09, 2024 End: October 09, 2024 Team Status: Active Member Role Status Pauline Tyson MD Primary Care Provider Active Start: September 10, 2024 ROSALBA GomezCAtsawyer ProviderActiveStart: September 10, 2024 Team Status: Inactive Member Role Status Pauline Tyson MD Primary Care Provider Active Christina Klein ProviderActive Team Status: Inactive Member Role Status Pauline Tyson MD Primary Care Provider Active Beth Smith ProviderActive Team Status: Inactive Member Role Status Pualine Tyson MD Primary Care Provider Active Beth Conway ProviderActiveTeam MemberRelationshipSpecialtyStart DateEnd Date Paulina Tyson MD [facility] [place] [address] PCP - General08/21/99Team MemberRelationshipSpecialtyStart DateEnd Date Paulina Tyson MD [address] [place] [address] PCP - General08/21/99 Team Status: Inactive Member Role Status Pauline Tyson MD Primary Care Provide r, Attending Provider Active Start: November 17, 2023 End: November 17, 2023 Team Status: Inactive Member Role Status Dates Paulina Tyson MD Primary Care Provider Active Start: December 04, 2023 End: December 03trevor Field MDAttending ProviderActiveStart: December 04, 2023 End: December 04, 2023Team MemberRelationshipSpecialtyStart DateEnd Date Paulina Tyson MD [address] [place] [address] PCP - General08/21/99Team MemberRelationshipSpecialtyStart [place] [address] [place] [address] PCP - General08/21/99 Team Status: Inactive Member Role Status Dates Paulina Tyson MD Primary Care Provider Active Start: January 29, 2024 End: January 29, 2024StBeth Martinez ProviderActiveStart: January 29, 2024 End: January 29, 2024 Team Status: Inactive Member Role Status Dates Paulina Tyson MD Primary Care Provider Active Start: June 07, 2024 End: June 07, 2024Gegaby Cooney MDAttrobson ProviderActiveStart: June 07, 2024 End: June 07, 2024Team MemberRelationshipSpecialtyStart DateEnd Date Paulina Tyson MD [facility] [place] [address] PCP - General08/21/99 Team Status: Inactive Member Role Status Dates Paulina Tyson MD Primary Care Provider Active Start: June 18, 2024 End: June 18trevor Filed MDAttending ProviderActiveStart: June 18, 2024 End: June 18, 2024Team MemberRelationshipSpecialtyStart DateEnd Date Paulina Tyson MD [address] [place] [address] PCP - GeneralFamily Crltmtpk77/6/24Team MemberRelationshipSpecialtyStart DateEnd Date Paulina Tyson MD [address] [place] [address] PCP - General08/21/99Team MemberRelationshipSpecialtyStart DateEnd Date Paulina Tyson MD [address] [place] [address] PCP - GeneralFamily Wkvpiira29/6/24 Adebayo Mendoza MD [address] [place] [address] Referring ZomdxjdxrSyigdypqx90/9/24Team MemberRelationshipSpecialtyStart DateEnd Date Paulina Tyson MD [address] [place] [address] PCP - General08/21/99Team MemberRelationshipSpecialtyStart DateEnd Date Paulina Tyson MD [address] [place] [address] PCP - General08/21/99Team MemberRelationshipSpecialtyStart DateEnd Date Paulina Tyson MD [address] [place] [address] PCP - General08/21/99Team MemberRelationshipSpecialtyStart DateEnd Date Paulina Tyson MD [address] [place] [address] PCP - General08/21/99Team MemberRelationshipSpecialtyStart DateEnd Date Paulina Tyson MD [address] [facility] [place] [address] PCP - General08/21/99Team MemberRelationshipSpecialtyStart DateEnd Date Paulina Tyson MD [address] [place] [address] PCP - General08/21/99 Team Status: Inactive Member Role Status Dates Paulina Tyson MD Primary Care Provider Active Start: June 05, 2025 End: June 05bdul Maximiliano , MDAttending ProviderActiveStart: June 05, 2025 End: June 05, 2025 Team Status: Active Member Role/Relationship Status Dates Paulina Tyson MD Primary Care Provider Active Team Status: Inactive Member Role/Relationship Status Dates Paulina Tyson MD Primary Care Provider Active Start: June 05, 2025 End: June 05bdul Maximiliano , MDAttending ProviderActiveStart: June 05, 2025 End: June 05, 2025 Team Status: Inactive Member Role/Relationship Status Dates Paulina Tyson MD Primary Care Provider Active Start: June 06, 2025 End: June 06bdul Maximiliano , MDAttending ProviderActiveStart: June 06, 2025 End: June 06, 2025 Team Status: Inactive Member Role/Relationship Status Dates Paulina Tyson MD Primary Care Provider Active Start: June 10, 2025 End: June 10bdul Maximiliano , MDAttending ProviderActiveStart: June 10, 2025 End: June 10, 2025Team MemberRelationshipSpecialtyStart DateEnd Date Paulina Tyson MD PCP [facility]06/26/24 Adebayo Mendoza MD Referring [id number]/9/24 Scheduled Active and Recently Administ ered Medications (unrecognized section and content) Medication Order// aspirin chewable tablet 324 mg (COMPLETED) 324 mg, oral, Once, On Mon02/09/24 at 1700, For 1 dose, Preprocedure * 170 (Given - Provider: My Solorzano, ASHLIE) aspirin EC tablet 81 mg 81 mg, oral, Daily, First dose on Mon02/10/24 at 0900, Phase II/On Unit, Do not crush, chew, or split. ceFAZolin in dextrose (iso-os) (Ancef) IVPB 2 g (COMPLETED) 2 g, intravenous, Administer over 30 Minutes, Once, On Mon02/09/24 at 1700, For 1 dose, Preprocedure, Administer within 60 minutes prior to incision. premix bag, Dosing of this medication varies based on severity of illness. Does this patient have sepsis or concern for sepsis (probable or documented infection plus systemic manifestations of infection)? No, Suspected Indication (Select all that apply): Surgical Prophylaxis, Indications: Surgical Prophylaxis * 1741 (New Bag - Provider: Becca Ruelas, ASHLIE) * 1811 (Stopped - Provider: Rikki Crawley RN) clopidogrel (Plavix) tablet 600 mg (COMPLETED)(Linked Group 1) 600 mg, oral, Once, On Mon02/09/24 at 1930, For 1 dose, Phase II/On Unit * 2049 (Given - Provider: Sagrario Remy, ASHLIE - Comment: Pt awaiting to eat meal) clopidogrel (Plavix) tablet 75 mg(Linked Group 1) 75 mg, oral, Daily, First dose on Mon02/10/24 at 0900, For 365 days, Phase II/On Unit docusate sodium (Colace) capsule 100 mg 100 mg, oral, 2 times daily, First dose on Mon02/09/24 at 2100, Phase II/On Unit, Bowel Regimen - for prevention of constipation Hold for loose stools * 2050 (Given - Provider: Sagrario Remy, ASHLIE) pantoprazole (ProtoNix) EC tablet 40 mg(Linked Group 2) 40 mg, oral, Daily before breakfast, First dose on Mon02/10/24 at 0700, Phase II/On Unit, Do not crush, chew, or split. pantoprazole (ProtoNix) injection 40 mg(Linked Group 2) 40 mg, intravenous, Administer over 2 Minutes, Daily before breakfast, First dose on Mon02/10/24 [id number], Phase II/On Unit, Give if unable to take by mouth. Reconstitute with 10 mL sodium chloride 0.9% for injection. Push over 2 minutes. Medication Order// lactated Ringer's infusion 75 mL/hr, intravenous, Continuous, Starting on Mon02/09/24 at 1700, For 4 hours, Preprocedure * 1700 (New Bag - Provider: My Solorzano RN) * 1743 (Rate/Dose Change - Provider: Sam Lopez RN - Comment: Per for kidney protection) Medication Order// acetaminophen (Tylenol) oral liquid 650 mg(Linked Group 3) 650 mg, oral, Every 6 hours PRN, pain mild (1-3), first line, Starting on Mon02/09/24 at 1906, Phase II/On Unit, Give oral liquid if patient prefers or per feeding tube if present. If inadequate response within 60 minutes, proceed to next-line agent for same PRN reason or contact provider if no further options ordered. acetaminophen (Tylenol) suppository 650 mg(Linked Group 3) 650 mg, rectal, Every 6 hours PRN, pain mild (1-3), first line, Starting on Mon02/09/24 at 1906, Phase II/On Unit, Give rectally if unable to administer by mouth or feeding tube. If inadequate response within 60 minutes, proceed to next-line agent for same PRN reason or contact provider if no further options ordered., If ordered PRN for pain, nurse is permitted to administer this medication for higher pain scores based on patient preference? Yes acetaminophen (Tylenol) tablet 650 mg(Linked Group 3) 650 mg, oral, Every 6 hours PRN, pain mild (1-3), first line, Starting on Mon02/09/24 at 1906, Phase II/On Unit, If inadequate response within 60 minutes, proceed to next-line agent for same PRN reason or contact provider if no further options ordered., If ordered PRN for pain, nurse is permitted to administer this medication for higher pain scores based on patient preference? Yes clopidogrel (Plavix) tablet (CANCELED) As needed, Starting on Mon02/09/24 at 1845, Intraprocedure * 1845 (Given - Provider: Sam Lopez, ASHLIE) fentaNYL PF (Sublimaze) injection (CANCELED) As needed, Starting on Mon02/09/24 at 1743, Intraprocedure * 1743 (Given - Provider: Sam Lopez, RN) * 1748 (Given - Provider: Sam Lopez, ASHLIE) heparin 1,000 unit/mL injection (CANCELED) As needed, Starting on Mon02/09/24 at 1754, Intraprocedure * 1754 (Given - Provider: Sam Lopez RN) * 1800 (Given - Provider: Sam Lopez, ASHLIE) iohexol (OMNIPaque) 350 mg iodine/mL solution (CANCELED) As needed, Starting on Mon02/09/24 at 1824, Intraprocedure * 1824 (Given - Provider: Adebayo Santiago MD - Comment: For Angiogram in [place]) lidocaine PF (Xylocaine) 10 mg/mL (1 %) injection (CANCELED) As needed, Starting on Mon02/09/24 at 1749, Intraprocedure * 1749 (Given - Provider: Adebayo Santiago MD - Comment: Right Groin for access) midazolam (Versed) injection (CANCELED) As needed, Starting on Mon02/09/24 at 1744, Intraprocedure * 1744 (Given - Provider: Sam Lopez, ASHLIE) * 1749 (Given - Provider: Sam Lopez RN) oxygen (O2) therapy inhalation, Continuous PRN - O2/gases, other, Starting on Mon02/09/24 at 1905, Phase II/On Unit, Wean oxygen therapy as tolerated., Device: Nasal Cannula, Rate in liters per minute: 2 LPM, Keep O2 Sat Above: 92% prochlorperazine (Compazine) injection 10 mg(Linked Group 4) 10 mg, intravenous, Every 6 hours PRN, nausea/vomiting, first line, Starting on Mon02/09/24 at 1906, Phase II/On Unit, Give IV if patient is unable to take orally. prochlorperazine (Compazine) suppository 25 mg(Linked Group 4) 25 mg, rectal, Every 12 hours PRN, nausea/vomiting, first line, Starting on Mon02/09/24 at 1906, Phase II/On Unit, 1st Line. Give NH if patient is unable to take orally or receive by injection. If inadequate response within 60 minutes, proceed to next-line agent or contact provider if no further options ordered. prochlorperazine (Compazine) tablet 10 mg(Linked Group 4) 10 mg, oral, Every 6 hours PRN, nausea/vomiting, first line, Starting on Mon02/09/24 at 1906, PhaseII/On Unit, 1st Line. If inadequate response within 60 minutes, proceed to next-line agent or contact provider if no further options ordered. protamine injection (COMPLETED) Continuous PRN, Starting on Mon02/09/24 at 1822, Intraprocedure * 1822 (New Bag - Provider: Sam Lopez, RN) traMADol (Ultram) tablet 50 mg 50 mg, oral, Every 6 hours PRN, pain moderate (4-6), first line, Starting on Mon02/09/24 at 1906, Phase II/On Unit, If ordered PRN for pain, nurse is permitted to administer this medication for higher pain scores based on patient preference? Yes Order Group 1: clopidogrel (Plavix) tablet 600 mg (COMPLETED)Jump to med 600 mg, oral, Once, On Mon02/09/24 at 1930, For 1 dose, Phase II/On Unit And clopidogrel (Plavix) tablet 75 mgJump to med 75 mg, oral, Daily, First dose on Mon02/10/24 at 0900, For 365 days, Phase II/On Unit Group 2: pantoprazole (ProtoNix) EC tablet 40 mgJump to med 40 mg, oral, Daily before breakfast, First dose on Mon02/10/24 at 0700, Phase II/On Unit, Do not crush, chew, or split. Or pantoprazole (ProtoNix) injection 40 mgJump to med 40 mg, intravenous, Administer over 2 Minutes, Daily before breakfast, First dose on Mon02/10/24 [id number], Phase II/On Unit, Give if unable to take by mouth. Reconstitute with 10 mL sodium chloride 0.9% for injection. Push over 2 minutes. Group 3: acetaminophen (Tylenol) tablet 650 mgJump to med 650 mg, oral, Every 6 hours PRN, pain mild (1-3), first line, Starting on Mon02/09/24 at 1906, Phase II/On Unit, If inadequate response within 60 minutes, proceed to next-line agent for same PRN reason or contact provider if no further options ordered., If ordered PRN for pain, nurse is permitted to administer this medication for higher pain scores based on patient preference? Yes Or acetaminophen (Tylenol) oral liquid 650 mgJump to med 650 mg, oral, Every 6 hours PRN, pain mild (1-3), first line, Starting on Mon02/09/24 at 1906, Phase II/On Unit, Give oral liquid if patient prefers or per feeding tube if present. If inadequate response within 60 minutes, proceed to next-line agent for same PRN reason or contact provider if no further options ordered. Or acetaminophen (Tylenol) suppository 650 mgJump to med 650 mg, rectal, Every 6 hours PRN, pain mild (1-3), first line, Starting on Mon02/09/24 at 1906, Phase II/On Unit, Give rectally if unable to administer by mouth or feeding tube. If inadequate response within 60 minutes, proceed to next-line agent for same PRN reason or contact provider if no further options ordered., If ordered PRN for pain, nurse is permitted to administer this medication for higher pain scores based on patient preference? Yes Group 4: prochlorperazine (Compazine) tablet 10 mgJump to med 10 mg, oral, Every 6 hours PRN, nausea/vomiting, first line, Starting on Mon02/09/24 at 1906, PhaseII/On Unit, 1st Line. If inadequate response within 60 minutes, proceed to next-line agent or contact provider if no further options ordered. Or prochlorperazine (Compazine) injection 10 mgJump to med 10 mg, intravenous, Every 6 hours PRN, nausea/vomiting, first line, Starting on Mon02/09/24 at 1906, Phase II/On Unit, Give IV if patient is unable to take orally. Or prochlorperazine (Compazine) suppository 25 mgJump to med 25 mg, rectal, Every 12 hours PRN, nausea/vomiting, first line, Starting on 02/09/24 at 1906, Phase II/On Unit, 1st Line. Give NH if patient is unable to take orally or receive by injection. If inadequate response within 60 minutes, proceed to next-line agent or contact provider if no further options ordered. FOR RECORDS PERTAINING TO PATIENTS WHO ARE OR HAVE BEEN ENROLLED IN A CHEMICAL DEPENDENCY/SUBSTANCEABUSE PROGRAM, SOME INFORMATION MAY BE OMITTED. This clinical summary was aggregated from multiple sources. Caution should be exercised in using it in the provision of clinical care. This summary normalizes information from multiple sources, and as a consequence, information in this document may materially change the coding, format and clinical context of patient data. In addition, data may be omitted in some cases. CLINICAL DECISIONS SHOULD BE BASED ON THE PRIMARY CLINICAL RECORDS. [email or web address] provides no warranty or guarantee of the accuracy or completeness of information in this document.
--- NOTE | 2025-07-01 11:48 | P.WCHP_ITS ---
Wound Care H&P: HPI History of Present Illness Narrative: Mr. De La Rosa is a pleasant 79-year-old gentleman who is deaf who presents for routine nail care. Video seismic interpreter was used for communication. He does complain of pain due to long toenails. He snagged his left great toenail and it was painful but he trimmed a loose portion and now that toe feels better. Exam Narrative: Exam Narrative: Derm: Skin is diffusely dry and shiny. Toenails 1 through 10 are elongated, thickened, and mycotic. No evidence of paronychia. No ulcerative or preulcerative lesions noted. Vascular: DP pulses are 2/4 bilaterally. PT pulses are faintly palpable bilaterally. Capillary refills less than 3 seconds bilaterally. Varicosities are present in both ankles. Skin is warm to the touch. There is trace edema of the feet and ankles. Hair on the toes and feet is decreased. Musculoskeletal: No gross deformity. No pain with palpation. Neuro: Monofilament testing was present and 0/5 areas tested on the right and 3/5 areas tested on the left. Vibratory sensation is present bilaterally. Reflexes are 1+ bilaterally. Assessment and Plan Assessment and Plan (1) Tinea unguium: (2) Type 2 diabetes mellitus with diabetic neuropathy, unspecified: (3) DM2 (diabetes mellitus, type 2): (4) Disorder of nail due to another disorder: Plan Routine nail care performed today. Follow-up in 3 months or as needed. Acute Procedures Podiatry Nail Debridement Class B Findings Advanced trophic changes as evidenced by any three of the following: decreased hair growth, nail changes (thickening), pigmentary changes (discoloring) and skin texture (thin or shiny) Class C Findings Claudication: Yes Temperature changes: No Edema: Yes Nail debridement paresthesia (abnormal spontaneous sensations in the feet): Yes Burning: Yes Qualifies If: Qualifiers If:: A patient qualifies for nail debridement if they have: 1 class A finding (Q7) 2 class B findings (Q8) OR 1 class B & 2 class C findings in addition to a primary condition (Q9) Nail Procedure Nail Procedure Time out: Yes Nail procedure: other (Nail debridement) Number of affected nails: 10 Location (toes): left, right, first digit, second digit, third digit, fourth digit and fifth digit Procedure successful: Yes Patient tolerated procedure: well and no complications Additional comments: Toenails 1 through 10 were sharply debrided without incident and to the patient satisfaction.
== END 2025-07-01 11:26 | disposition home or self-care (01) ==
LOC: WC 11:25
PROVIDERS: PCP Family Medicine; Visit Provider Physician Assistant
DX: B35.1 Tinea unguium (principal); E11.40 Type 2 diabetes mellitus with diabetic neuropathy, unspecified; L60.8 Other nail disorders
CPT/HCPCS: 11721

== ENCOUNTER 2025-07-21 10:45 | Outpatient (RCR) | payer MEDICARE, SELFPAY | END 2025-08-20 12:44 | disposition home or self-care (01) | LOC: MM 10:45 | PROVIDERS: PCP Family Medicine; Visit Provider Internal Medicine | DX: Z51.81 Encounter for therapeutic drug level monitoring (principal); Z79.01 Long term (current) use of anticoagulants; I48.20 Chronic atrial fibrillation, unspecified | CPT/HCPCS: 85610; G0463 ==